=== PATIENT | male | born 1950 | race Caucasian/White ===

== ENCOUNTER 2022-07-07 14:28 | Inpatient (IN) | payer OTHER, SELFPAY ==
--- NOTE | 2022-07-07 | ECG_ITS ---
Test Reason : pre ect Blood Pressure : / mmHG Vent. Rate : 066 BPM Atrial Rate : 066 BPM P-R Int : 144 ms QRS Dur : 086 ms QT Int : 374 ms P-R-T Axes : 050 061 042 degrees QTc Int : 392 ms Sinus rhythm with Sinus Arrhythmia Otherwise normal ECG No previous ECGs available Referred By: Jones Valles Electronically Signed By:ROSALBA GALVEZ MD
--- NOTE | 2022-07-07 15:34 | HO.PSYADMNOT ---
HPI Date of Service: 07/07/22 Chief Complaint: MDD Recurrent Severe w/Psychotic Features Sources of Information: patient interviewed and chart reviewed Additional Sources of Information: [facility] HPI Subjective Notes: Martinez Warning and Conditional Voluntary Narrative: The patient is a 72-year-old male, , with no children, retired, living with his , referred [facility] for [facility]. The patient carries a diagnosis of major depressive disorder recurrent episode and according to the patient, the present depressive episode started 4 months ago with increased depressed mood, anhedonia, lack of energy, feelings of hopelessness and worthlessness. Also he reported that he knew that his computers were hacked. As an outpatient, his antidepressants were improved increased up to the maximum doses and he complained of parkinsonian syndrome. The patient worsen it and he felt suicidal and he tried to kill himself by aspiration of CO. He was initially treated in the emergency room and after being medically cleared, he was assessed by crisis hers and transfer into [facility] the [facility]. while he was on the inpatient unit, several medications were tried with limited efficacy. According to the chart they tried Risperdal, Wellbutrin, Prozac, Effexor, Abilify, lithium, Ritalin with for improvement. He was referred to this center for ECT. On interview, the patient reports depressive symptoms but he was able to contract for safety in the facility. He adamantly denies auditory hallucinations, visual hallucinations but he remains paranoid stating that the computers were hacked. He is fully aware that he was transferred here for ECT and he is willing to have the procedure., Past Psychiatric History: The patient has prior history of depression in the past, treated mostly outpatient. Apparently, he had his 1st depressive episode on 2013 managed as an outpatient and he had a 2nd episode that started most likely in December 2021 that lead to the present [facility] the [facility]. Medical Evaluation Reviewed: Hospitalist Sylvester Pending Clearance for ECT ordered [facility] Narrative: Obesity Tremors Chronic vitamin B12 deficiency Crohn's disease Hypothyroidism Overactive bladder Benign prostatic hyperplasia Family History: Denies Social History: The patient has 3 other siblings, he was raised by parents, milestones were achieved at expected age. He attended up to high school. He did 1 semester in college. 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 Later he worked in the [employer] services. He is for the last 48 years, no children. Good social support Substance History: Denies Trauma History: Denies Meds/Allergies Allergies Allergies Allergy/AdvReac Type Severity Reaction Status Date / Time codeine Allergy Intermediate Rash Verified 07/07/22 14:40 Mental Status Exam Mental Status Exam Patient Appearance: Well Grooomed and Appropriate Patient Orientation: Person, Place and Situation Level of Consciousness: Awake and Appropriate Patient Behavior: Cooperative and Passive Mood Description: Withdrawn and Depressed Affect Description: Constricted Ability to Follow Directions: Good Speech Pattern: Clear Hallucinations: None Delusions: Paranoid Ideation Thought Process: Distracted and Slowed Thinking Thought Content: positive for [place] and positive for Circumstantial Depressive Symptoms: Increased Anxiety, Insomnia, Feelings of Worthlessness, Feelings of Guilt and Difficulty Concentrating Judgement: Fair Assessment & Plan Assessment & Plan (1) Major depressive disorder, recurrent episode with mood-congruent psychotic features: Status: Acute Code(s): F33.3 - Major depressive disorder, recurrent, severe with psychotic symptoms (2) Hypothyroidism: Status: Acute Code(s): E03.9 - Hypothyroidism, unspecified (3) Vitamin B12 deficiency: Status: Acute Code(s): E53.8 - Deficiency of other specified B group vitamins (4) Parkinsonian features: Status: Acute Code(s): R25.9 - Unspecified abnormal involuntary movements (5) Crohn's disease: Status: Acute Code(s): K50.90 - Crohn's disease, unspecified, without complications Plan The patient is an elderly male with a history of depression who recently relapse with psychotic features. [facility] after suicidal attempt by trying to poisoning with c/o. He has failed to several trials of medications and he is transferring to this facility for ECT. Plan 1. Gather collateral information. We will try to contact his Elena to get more information. 2. Continue with the same medications as per medication reconciliation. 3. Blood work and EKG for medical clearance for ECT. 4. Consult to hospitalist for continuation of care. 5. Consult to anesthesiology for ECT Patient educated on: diagnosis, ECT and therapeutic strategies Informed Consent: further education needed Reason for continued inpatient stay Substantial Risk for: harm to self, inability to function, rapid decompensation and med/psych decompensation Statement Statement: I have reviewed the history and physical and performed a pertinent examination on my patient. No changes have occurred unless specified.
[2022-07-07 15:53] LABS: Lithium 0.86 mmol/L (0.60-1.20)
--- NOTE | 2022-07-07 16:35 | PC.NURSE ---
Zi is admitted to from [address] on 07/07/22 at 1450 for treatment of major depression with psychotic features. Zi has a history of multiple unsuccessful trials of medications and a recent suicide attempt by carbon monoxide poisoning. Zi reports he felt overwhelmed by his deteriorating physical health, need for increasing assistance due to complex medical issues and his beliefs that his finances were being hacked through his computer. He did not write a suicide note and after 30 minutes, stopped the attempt and accessed medical care. While he was treated [facility]rically at the [facility] he agreed to ECT and was therefore transferred to [facility]. On admission to Zi is well groomed, well dressed, alert and fully oriented. He was unsteady on his feet getting from stretcher to bed. [facility] said he walks with cane, pt reports using a walker at home. He was given a walker to use until a PT consult can be completed. Mood is depressed. Affect is sad and anxious. Zi denies hallucinations of any kind at present or in the past. He does verbalize a reportedly delusional belief that his banking was hacked through his computer. Otherwise he does not appear psychotic. Thought Process is linear and organized. He reports he misunderstood Dr Valles's questions and did not mean to give false answers. Zi denies current ideation, plan or intent to harm self or others. Appetite is good, Patient uses weighted cup and flatware. Sleep is good but often interrupted by anxiety and nocturia. His ability to focus is good. Patient denies current or history of substance use. He has never smoked. Medical Issues?include Parkinsonism, Crohn's with bowel ressection and daily diarrhea, anemia, osteoarthritis, DJD, chronic uncontrolled pain, hypothyroidism, BPH, OAB. He is intermittently unsteady and needs assist with showers, housekeeping, and dressing. He denies current physical complaint. Patient is placed on q 15 minute checks for safety. Patient has already received flu shot this year.
--- NOTE | 2022-07-07 17:42 | P.CONHOSP_ITS ---
History of Present Illness Data of Consult Service Date: 07/07/22 Requesting physician: Tee Urbina Primary Care Provider: DO CHRISTIANA Marc Reason for consult: medical H&P/ECT eval 72-year-old male with history of Crohn's disease s/p partial small bowel were stuck carr, osteoarthritis of multiple joints, hyperlipidemia, hypothyroidism, vitamin-B12 deficiency, prediabetes, and parkinsonian like tremor on Sinemet admitted to Psychiatry after being transferred from the [facility] following suicide attempt with carbon monoxide poisoning, for ECT, with consult placed to Medicine for H&P and ECT evaluation. The patient reports feeling depressed. States that he has ongoing diarrhea related to his Crohn's disease but feels this is his baseline it is reasonably controlled with Imodium. He has no personal family history of heart disease. No known coronary artery disease or heart failure. He denies any shortness of breath including dyspnea on exertion, orthopnea, PND. No palpitations, lightheadedness, chest pain, edema. He is able to ascend a flight of stairs without experiencing dyspnea. No history of seizures. Review of Systems Review of Systems: General: No fevers, malaise, unintentional weight loss HEENT: No blurred vision, diplopia. No sore throat, nasal congestion, r hinorrhea, sinus pain, ear pain Cardiovascular: No chest pain, palpitations, or leg edema Respiratory: No shortness of breath, wheezing, cough GI: No abdominal pain, nausea, vomiting, diarrhea, constipation, melena, hematochezia : No dysuria, hematuria, increased urinary frequency, decreased urinary output MSK: No myalgia, back pain Neuro: No headaches, weakness, paresthesias Psych: +depression Skin: No rashes or lesions [facility] Medical History (Updated 07/07/22 @ 17:49 by TRUE Lebron) Crohn's disease Hypothyroidism Major depressive disorder, recurrent episode with mood-congruent psychotic features Osteoarthritis Parkinsonian features Vitamin B12 deficiency Family History (Updated 07/07/22 @ 17:48 by TRUE Lebron) Father Stomach cancer Mother Dementia Surgical History (Updated 07/07/22 @ 17:48 by TRUE Lebron) S/P small bowel resection Social History Household Members: Spouse Housing: House Do you presently have visiting nurse or other home services: No Patient Tobacco Use Status: Never used Tobacco Use of substances other than those prescribed or required for medical reasons: No Currently Displaying Signs/Symptoms of Drug Intoxication Withdrawal: No Any prior treatment program specific to substance use: No Have you been hit, kicked, punched, or otherwise hurt by someone within the past year? If so, by whom?: No Do you feel safe in your current relationship?: No Is there a partner from a previous relationship who is making you feel unsafe now?: No Are you made to feel afraid or neglected: No Orthodoxy Healthcare Practices: Christianity Advance Directives: No Do you have thoughts of harming others: None Do you have a plan to hurt others: No Plan Recently lost weight without trying: No Poor oral hygiene: No Meds Allergies Allergy/AdvReac Type Severity Reaction Status Date / Time codeine Allergy Intermediate Rash Verified 07/07/22 14:40 Active Medications: Current Medications Acetaminophen (Acetaminophen 325 Mg Tablet) 650 mg PO Q6H PRN PRN Reason: Headache/Pain Mild Scale (1-3) Al Hydroxide/Mg Hydroxide (Magnesium Hydrox/Alum Hydrox 30 Ml Oral.Susp) 30 ml PO Q6H PRN PRN Reason: Heartburn/Nausea Aripiprazole (Aripiprazole 30 Mg Tablet) 30 mg PO DAILY COUNTS INCLUDE 234 BEDS AT THE [facility] Azathioprine (Azathioprine 50 Mg Tablet) 100 mg PO DAILY [facility] Carbidopa/Levodopa (Carbidopa/Levodopa 25/100 Tablet) 1 tab PO TID KATHRYN Folic Acid (Folic Acid 1 Mg Tablet) 1 mg PO DAILY COUNTS INCLUDE 234 BEDS AT THE [facility] [place] Carbonate ([place] Carbonate 300 Mg Capsule) 450 mg PO BEDTIME KAT[facility]YN Loperamide HCl (Loperamide Hcl 2 Mg Capsule) 2 mg PO Q6H PRN PRN Reason: Diarrhea Lorazepam (Lorazepam 0.5 Mg Tablet) 0.5 mg PO Q8H PRN PRN Reason: Anxiety Magnesium Hydroxide (Milk Of Magnesia 30 Ml Oral.Susp) 30 ml PO DAILY PRN PRN Reason: Constipation Naproxen (Naproxen 500 Mg Tablet) 500 mg PO BID COUNTS INCLUDE 234 BEDS AT THE [facility] Oxybutynin Chloride (Oxybutynin Chloride Er 5 Mg Tab.Er.24) 10 mg PO DAILY COUNTS INCLUDE 234 BEDS AT THE [facility] Primidone (Primidone 50 Mg Tablet) 125 mg PO DAILY COUNTS INCLUDE 234 BEDS AT THE [facility] Primidone (Primidone 50 Mg Tablet) 100 mg PO BEDTIME KAT[facility] Trazodone HCl (Trazodone Hcl 50 Mg Tablet) 50 mg PO BEDTIME PRN PRN Reason: Insomnia Venlafaxine HCl (Venlafaxine Hcl Er 37.5 Mg Cap.Er.24h) 187.5 mg PO DAILY KATHRYN Results Labs Labs: Laboratory Results - last 24 hr 07/07/22 15:02 [place] 0.86 Assessment and Plan (1) Routine medical exam: Status: Acute Plan 72-year-old male with history of Crohn's disease s/p partial small bowel were stuck carr, osteoarthritis of multiple joints, hyperlipidemia, hypothyroidism, vitamin-B12 deficiency, prediabetes, and parkinsonian like tremor on Sinemet admitted to Psychiatry after being transferred from the following suicide attempt with carbon monoxide poisoning, for ECT, with consult placed to Medicine for H&P and ECT evaluation. #Depression/Suicide attempt with CO poisoning -Plan per psychiatry -ECT evaluation: There is no medical contraindication inhibiting patient undergoing ECT. Cardiac Pre-Op risk 0. #Hypothyroidism -Check TSH with reflex free T4 -Not on levothyroxine at home, ?subclinical hypothyroidism -Initiate levothyroxine if free T4 levels deficient #Vitamin B12 deficiency -Vitamin b12/folate levels pending -Replete as indicated #Parkinsonism- tremor -Continue sinemet #Osteoarthritis -No NSAIDs with Crohns disease- naproxen dc'd -Tylenol 650mg q6h prn #HLD -lipid panel pending -Consider statin if LDL >130 #crohns disease- stable without exacerbation -Continue azathioprine -Immodium prn for diarrhea #Prediabetes -A1c ordered Thank you for allowing me to participate in this consult. Signing off at this time. Please do not hesitate to call for further questions.
[2022-07-07 18:00] VITALS: BP 126/60; PULSE 73; RESP 16; TEMP 35.8; O2SAT 95
[2022-07-07] MEDS: Primidone 50 MG TABLET 100 MG PO (20:54)
[2022-07-07] MEDS: Lithium Carbonate 300 MG TABLET 450 MG PO (20:55)
[2022-07-07] MEDS: Carbidopa/Levodopa 25/100 TABLET 1 TAB PO (20:55)
[2022-07-07] MEDS: Loperamide HCl 2 MG CAPSULE PO (22:31)
[2022-07-08 06:00] VITALS: BP 119/71; PULSE 77; RESP 16; TEMP 36.2; O2SAT 97
[2022-07-08 08:06] LABS: MANUAL DIFF FLAG NO
[2022-07-08 08:09] LABS: Basophils Percent Auto 0.7 % (0-2); Eosinophils Absolute Auto 0.2 X10*3/uL (0.0-0.4); Hematocrit 40.8 % (42.0-52.0); Hemoglobin 13.8 g/dl (14.0-18.0); Imm Gran Abs Auto 0.02 X10*3/uL (0.00-0.03); Imm Gran Pct Auto 0.4 % (0.0-0.4); Lymphocytes Absolute Auto 1.2 X10*3/uL (1.2-4.9); Lymphocytes Percent Auto 22.9 % (20-40); Mean Corpuscular HGB Conc 33.8 g/dl (31.0-36.0); Mean Corpuscular Hemoglobin 33.6 pg (27.0-33.0); Mean Corpuscular Volume 99.3 fL (80.0-98.0); Mean Platelet Volume 9.5 fL (9.4-12.4); Monocytes Absolute Auto 0.4 X10*3/uL (0.1-1.2); Neutrophils Absolute Auto 3.5 x10*3/uL (2.0-8.3); Platelet Count 236 X10*3/uL (160-400); Red Blood Count 4.11 X10*6/uL (4.60-5.80); Red Cell Distribution Width 12.4 % (11.0-16.0); White Blood Count 5.4 X10*3/uL (4.8-10.8)
[2022-07-08 08:49] LABS: Estimated Average Glucose 108 mg/dL; Hemoglobin A1c % 5.4 %
[2022-07-08 08:54] LABS: Alanine Aminotransferase 13 U/L (0-40); Albumin Level 4.1 g/dL (3.5-5.0); Alkaline Phosphatase 81 U/L (39-117); Anion Gap 11 (12-20); Aspartate Amino Transferase 14 U/L (5-37); Bilirubin Total 0.4 mg/dL (0.0-1.0); Blood Urea Nitrogen 12 mg/dL (9-16); Calcium 9.1 mg/dL (8.4-10.2); Carbon Dioxide 26 mmol/L (22-29); Chloride 105 mmol/L (96-108); Cholesterol 168 mg/dL; Estimated Glomerular Filt Rate > 60; Glucose Fasting 107 mg/dL (60-99); HDL Cholesterol 34 mg/dL; LDL Cholesterol Calculated 98 mg/dl; Potassium 4.6 mmol/L (3.3-5.1); Sodium 137 mmol/L (135-145); TSH reflex Free T4 4.21 uIU/mL (0.32-4.0); Total Protein 6.5 g/dL (6.5-8.0); Triglycerides 181 mg/dL
[2022-07-08] MEDS: Folic Acid 1 MG TABLET PO (09:52)
[2022-07-08] MEDS: Primidone 50 MG TABLET 125 MG PO (09:52)
[2022-07-08] MEDS: Carbidopa/Levodopa 25/100 TABLET 1 TAB PO ×3 (09:52→20:19)
[2022-07-08] MEDS: azaTHIOprine 50 MG TABLET 100 MG PO (09:52)
[2022-07-08 09:54] VITALS: BP 126/60; PULSE 73; O2SAT 95
[2022-07-08 10:03] LABS: Free T4 (Free Thyroxine) 0.96 ng/dL (0.71-1.85)
[2022-07-08 10:20] LABS: Folate 18.9 ng/mL (> or = 4.0); Vitamin B12 746 pg/mL (200-900)
--- NOTE | 2022-07-08 11:12 | P.PNPSI_ITS ---
Subjective Subjective Date of Service: 07/08/22 Reason For Visit: MDD Recurrent Severe w/Psychotic Features Subjective Notes: Conditional Voluntary Interim History: The nursing staff reported the patient has been alert, oriented x3 and he walks with a cane. He denies auditory hallucinations but he looks delusional. The hospital consult was done and he is cleared for ECT. Also his lithium levels in the therapeutic range. We will consult today for a physical therapy consultation for his ambulation. On interview the patient remains dysphoric but adamantly denies auditory hallucinations, still he is delusional. We discussed at length ECT and he is willing to have it on Monday. He complained of poor sleep, his rommate snored. Mental Status Exam Mental Status Exam Patient Appearance: Appropriate Patient Orientation: Person, Place and Situation Level of Consciousness: Awake and Appropriate Patient Behavior: Cooperative Mood Description: Withdrawn Affect Description: Constricted Ability to Follow Directions: Good Speech Pattern: Clear Hallucinations: None Delusions: Paranoid Ideation Thought Process: Distracted and Slowed Thinking Thought Content: positive for [place] and positive for Poverty of Content Judgement: Fair Diagnostics Vital Signs (24Hr): Vital Signs - 24 hr 07/07/22 18:00 07/08/22 06:00 07/08/22 09:54 Temperature 96.4 F L 97.1 F Pulse Rate 73 77 73 Respiratory Rate 16 16 Blood Pressure 126/60 119/71 126/60 Pulse Oximetry 95 97 95 Oxygen Delivery Method Room Air Room Air Labs Results: 07/08/22 08:02 07/08/22 08:02 Labs: Laboratory Results - last 48 hr 07/07/22 07/08/22 07/08/22 15:02 08:02 08:02 WBC 5.4 RBC 4.11 L Hgb 13.8 L Hct 40.8 L MCV 99.3 H MCH 33.6 H MCHC 33.8 RDW 12.4 Plt Count 236 MPV 9.5 Immature Gran % (Auto) 0.4 Neut % (Auto) 65.0 Lymph % (Auto) 22.9 [place] % (Auto) 8.0 Eos % (Auto) 3.0 Baso % (Auto) 0.7 Lymph # (Auto) 1.2 [place] # (Auto) 0.4 Eos # (Auto) 0.2 Baso # (Auto) 0.0 Abs Immat Gran (auto) 0.02 Absolute Neuts (auto) 3.5 Absolute Nucleated RBC 0.000 Nucleated RBC % (auto) 0.0 Sodium 137 Potassium 4.6 Chloride 105 Carbon Dioxide 26 Anion Gap 11 L BUN 12 Creatinine 0.88 Estim Creat Clear Calc TNP Estimated GFR > 60 Fasting Glucose 107 H Estimat Average Glucose Hemoglobin A1c % Calcium 9.1 Total Bilirubin 0.4 AST 14 ALT 13 Alkaline Phosphatase 81 Total Protein 6.5 Albumin 4.1 Triglycerides 181 Cholesterol 168 LDL Cholesterol, Calc 98 HDL Cholesterol 34 Vitamin B12 Folate TSH 4.21 H Free T4 0.96 [place] 0.86 07/08/22 07/08/22 08:02 08:02 WBC RBC Hgb Hct MCV MCH MCHC RDW Plt Count MPV Immature Gran % (Auto) Neut % (Auto) Lymph % (Auto) [place] % (Auto) Eos % (Auto) Baso % (Auto) Lymph # (Auto) [place] # (Auto) Eos # (Auto) Baso # (Auto) Abs Immat Gran (auto) Absolute Neuts (auto) Absolute Nucleated RBC Nucleated RBC % (auto) Sodium Potassium Chloride Carbon Dioxide Anion Gap BUN Creatinine Estim Creat Clear Calc Estimated GFR Fasting Glucose Estimat Average Glucose 108 Hemoglobin A1c % 5.4 Calcium Total Bilirubin AST ALT Alkaline Phosphatase Total Protein Albumin Triglycerides Cholesterol LDL Cholesterol, Calc HDL Cholesterol Vitamin B12 746 Folate 18.9 TSH Free T4 [place] Medications Medications Current Medications Acetaminophen (Acetaminophen 325 Mg Tablet) 650 mg PO Q6H PRN PRN Reason: Headache/Pain Mild Scale (1-3) Acetaminophen (Acetaminophen 325 Mg Tablet) 650 mg PO Q6H PRN PRN Reason: arthritis pain Al Hydroxide/Mg Hydroxide (Magnesium Hydrox/Alum Hydrox 30 Ml Oral.Susp) 30 ml PO Q6H PRN PRN Reason: Heartburn/Nausea Aripiprazole (Aripiprazole 30 Mg Tablet) 30 mg PO DAILY KATHRYN Azathioprine (Azathioprine 50 Mg Tablet) 100 mg PO DAILY [facility] Last Admin: 07/08/22 09:52 Dose: 100 mg Carbidopa/Levodopa (Carbidopa/Levodopa 25/100 Tablet) 1 tab PO TID KATHRYN Last Admin: 07/08/22 09:52 Dose: 1 tab Folic Acid (Folic Acid 1 Mg Tablet) 1 mg PO DAILY [facility] Last Admin: 07/08/22 09:52 Dose: 1 mg [place] Carbonate ([place] Carbonate 300 Mg Tablet) 450 mg PO BEDTIME KATHRYN Last Admin: 07/07/22 20:55 Dose: 450 mg Loperamide HCl (Loperamide Hcl 2 Mg Capsule) 2 mg PO Q6H PRN PRN Reason: Diarrhea Last Admin: 07/07/22 22:31 Dose: 2 mg Lorazepam (Lorazepam 0.5 Mg Tablet) 0.5 mg PO Q8H PRN PRN Reason: Anxiety Magnesium Hydroxide (Milk Of Magnesia 30 Ml Oral.Susp) 30 ml PO DAILY PRN PRN Reason: Constipation Oxybutynin Chloride (Oxybutynin Chloride Er 5 Mg Tab.Er.24) 10 mg PO DAILY [facility] Last Admin: 07/08/22 09:51 Dose: 10 mg Primidone (Primidone 50 Mg Tablet) 125 mg PO DAILY [facility] Last Admin: 07/08/22 09:52 Dose: 125 mg Primidone (Primidone 50 Mg Tablet) 100 mg PO BEDTIME [facility] Last Admin: 07/07/22 20:54 Dose: 100 mg Trazodone HCl (Trazodone Hcl 50 Mg Tablet) 50 mg PO BEDTIME PRN PRN Reason: Insomnia Venlafaxine HCl (Venlafaxine Hcl Er 37.5 Mg Cap.Er.24h) 187.5 mg PO DAILY [facility] Allergies Allergies Allergy/AdvReac Type Severity Reaction Status Date / Time codeine Allergy Intermediate Rash Verified 07/07/22 14:40 Assessment & Plan Assessment & Plan (1) Routine medical exam: Status: Acute Code(s): Z00.00 - Encounter for general adult medical examination without abnormal findings Plan 72-year-old male with history of Crohn's disease s/p partial small bowel were stuck carr, osteoarthritis of multiple joints, hyperlipidemia, hypothyroidism, vitamin-B12 deficiency, prediabetes, and parkinsonian like tremor on Sinemet admitted to Psychiatry after being transferred from the [facility] following suicide attempt with carbon monoxide poisoning, for ECT, with consult placed to Medicine for H&P and ECT evaluation. #Depression/Suicide attempt with CO poisoning -Plan per psychiatry -ECT evaluation: There is no medical contraindication inhibiting patient undergoing ECT. Cardiac Pre-Op risk 0. #Hypothyroidism -Check TSH with reflex free T4 -Not on levothyroxine at home, ?subclinical hypothyroidism -Initiate levothyroxine if free T4 levels deficient #Vitamin B12 deficiency -Vitamin b12/folate levels pending -Replete as indicated #Parkinsonism- tremor -Continue sinemet #Osteoarthritis -No NSAIDs with Crohns disease- naproxen dc'd -Tylenol 650mg q6h prn #HLD -lipid panel pending -Consider statin if LDL >130 #crohns disease- stable without exacerbation -Continue azathioprine -Immodium prn for diarrhea #Prediabetes -A1c ordered Thank you for allowing me to participate in this consult. Signing off at this time. Please do not hesitate to call for further questions. Psychiatry Plan 1. ECT for Monday. 2. Continue with Effexor and other medications. 3. PT consult for the ambulation . 4. Increase Trazodone at hs. I spent ___20___ minutes with the patient and/or on the patient floor today, greater than?50% of which was spent counseling/coordinating care. Reason for contiued inpatient stay Substantial Risk for: inability to function, rapid decompensation and med/psych decompensation
[2022-07-08] MEDS: Venlafaxine HCl ER 37.5 MG CAP.ER.24H 187.5 MG PO (11:29)
[2022-07-08] MEDS: Loperamide HCl 2 MG CAPSULE PO (11:29)
[2022-07-08] MEDS: ARIPiprazole 30 MG TABLET PO (11:30)
[2022-07-08 18:00] VITALS: BP 111/54; PULSE 74; RESP 14; TEMP 36.4; O2SAT 96
[2022-07-08] MEDS: Lithium Carbonate 300 MG TABLET 450 MG PO (20:18)
[2022-07-08] MEDS: traZODone HCL 100 MG TABLET PO (20:19)
[2022-07-08] MEDS: Primidone 50 MG TABLET 100 MG PO (20:19)
[2022-07-08] MEDS: LORazepam 0.5 MG TABLET PO ×2 (20:22→22:46)
[2022-07-08] MEDS: QUEtiapine Fumarate 25 MG TABLET 12.5 MG PO (22:46)
[2022-07-09 06:00] VITALS: BP 127/69; PULSE 67; RESP 19; TEMP 35.9; O2SAT 97
[2022-07-09] MEDS: azaTHIOprine 50 MG TABLET 100 MG PO (08:55)
[2022-07-09] MEDS: Venlafaxine HCl ER 37.5 MG CAP.ER.24H 187.5 MG PO (08:55)
[2022-07-09] MEDS: Primidone 50 MG TABLET 125 MG PO (08:56)
[2022-07-09] MEDS: ARIPiprazole 30 MG TABLET PO (08:56)
[2022-07-09] MEDS: Carbidopa/Levodopa 25/100 TABLET 1 TAB PO ×2 (08:56→20:05)
[2022-07-09] MEDS: Folic Acid 1 MG TABLET PO (08:56)
--- NOTE | 2022-07-09 09:59 | HO.PSYCHPN ---
Subjective Subjective Date of Service: 07/09/22 Reason For Visit: MDD Recurrent Severe w/Psychotic Features Subjective Notes: Conditional Voluntary Interim History: The patient transferred from the [place] system for ECT. Patient flat depressed hopeless helpless somewhat rigid tremulous internally preoccupied he is able to take and information. Records reviewed from the [place] Mental Status Exam Mental Status Exam Patient Appearance: Fatigued, Disheveled and Rigid Patient Orientation: Person, Place and Situation Level of Consciousness: Awake and Appropriate Patient Behavior: Cooperative Mood Description: Withdrawn Affect Description: Constricted Ability to Follow Directions: Good Speech Pattern: Clear Hallucinations: None Delusions: Paranoid Ideation Thought Process: Distracted and Slowed Thinking Thought Content: positive for [place] and positive for Poverty of Content Depressive Symptoms: Increased Anxiety and Loss of Int. in Activity Judgement: Fair Diagnostics Vital Signs (24Hr): Vital Signs - 24 hr 07/08/22 18:00 07/09/22 06:00 Temperature 97.5 F 96.6 F L Pulse Rate 74 67 Respiratory Rate 14 19 Blood Pressure 111/54 L 127/69 Pulse Oximetry 96 97 Oxygen Delivery Method Room Air Room Air Labs Results: 07/08/22 08:02 07/08/22 08:02 Labs: Laboratory Results - last 48 hr 07/07/22 07/08/22 07/08/22 15:02 08:02 08:02 WBC 5.4 RBC 4.11 L Hgb 13.8 L Hct 40.8 L MCV 99.3 H MCH 33.6 H MCHC 33.8 RDW 12.4 Plt Count 236 MPV 9.5 Immature Gran % (Auto) 0.4 Neut % (Auto) 65.0 Lymph % (Auto) 22.9 [place] % (Auto) 8.0 Eos % (Auto) 3.0 Baso % (Auto) 0.7 Lymph # (Auto) 1.2 [place] # (Auto) 0.4 Eos # (Auto) 0.2 Baso # (Auto) 0.0 Abs Immat Gran (auto) 0.02 Absolute Neuts (auto) 3.5 Absolute Nucleated RBC 0.000 Nucleated RBC % (auto) 0.0 Sodium 137 Potassium 4.6 Chloride 105 Carbon Dioxide 26 Anion Gap 11 L BUN 12 Creatinine 0.88 Estim Creat Clear Calc TNP Estimated GFR > 60 Fasting Glucose 107 H Estimat Average Glucose Hemoglobin A1c % Calcium 9.1 Total Bilirubin 0.4 AST 14 ALT 13 Alkaline Phosphatase 81 Total Protein 6.5 Albumin 4.1 Triglycerides 181 Cholesterol 168 LDL Cholesterol, Calc 98 HDL Cholesterol 34 Vitamin B12 Folate TSH 4.21 H Free T4 0.96 [place] 0.86 07/08/22 07/08/22 08:02 08:02 WBC RBC Hgb Hct MCV MCH MCHC RDW Plt Count MPV Immature Gran % (Auto) Neut % (Auto) Lymph % (Auto) [place] % (Auto) Eos % (Auto) Baso % (Auto) Lymph # (Auto) [place] # (Auto) Eos # (Auto) Baso # (Auto) Abs Immat Gran (auto) Absolute Neuts (auto) Absolute Nucleated RBC Nucleated RBC % (auto) Sodium Potassium Chloride Carbon Dioxide Anion Gap BUN Creatinine Estim Creat Clear Calc Estimated GFR Fasting Glucose Estimat Average Glucose 108 Hemoglobin A1c % 5.4 Calcium Total Bilirubin AST ALT Alkaline Phosphatase Total Protein Albumin Triglycerides Cholesterol LDL Cholesterol, Calc HDL Cholesterol Vitamin B12 746 Folate 18.9 TSH Free T4 [place] Medications Medications Current Medications Acetaminophen (Acetaminophen 325 Mg Tablet) 650 mg PO Q6H PRN PRN Reason: Headache/Pain Mild Scale (1-3) Acetaminophen (Acetaminophen 325 Mg Tablet) 650 mg PO Q6H PRN PRN Reason: arthritis pain Al Hydroxide/Mg Hydroxide (Magnesium Hydrox/Alum Hydrox 30 Ml Oral.Susp) 30 ml PO Q6H PRN PRN Reason: Heartburn/Nausea Aripiprazole (Aripiprazole 30 Mg Tablet) 30 mg PO DAILY [facility] Last Admin: 07/09/22 08:56 Dose: 30 mg Azathioprine (Azathioprine 50 Mg Tablet) 100 mg PO DAILY [facility] Last Admin: 07/09/22 08:55 Dose: 100 mg Carbidopa/Levodopa (Carbidopa/Levodopa 25/100 Tablet) 1 tab PO TID [facility] Last Admin: 07/09/22 08:56 Dose: 1 tab Folic Acid (Folic Acid 1 Mg Tablet) 1 mg PO DAILY [facility] Last Admin: 07/09/22 08:56 Dose: 1 mg [place] Carbonate ([place] Carbonate 300 Mg Tablet) 450 mg PO BEDTIME [facility] Last Admin: 07/08/22 20:18 Dose: 450 mg Loperamide HCl (Loperamide Hcl 2 Mg Capsule) 2 mg PO Q6H PRN PRN Reason: Diarrhea Last Admin: 07/08/22 11:29 Dose: 2 mg Lorazepam (Lorazepam 0.5 Mg Tablet) 0.5 mg PO Q8H PRN PRN Reason: Anxiety Last Admin: 07/08/22 20:22 Dose: 0.5 mg Lorazepam (Lorazepam 0.5 Mg Tablet) 0.5 mg PO BEDTIME PRN PRN Reason: Insomnia Lorazepam (Lorazepam 0.5 Mg Tablet) 0.5 mg PO BEDTIME [facility] Last Admin: 07/08/22 22:46 Dose: 0.5 mg Magnesium Hydroxide (Milk Of Magnesia 30 Ml Oral.Susp) 30 ml PO DAILY PRN PRN Reason: Constipation Oxybutynin Chloride (Oxybutynin Chloride Er 5 Mg Tab.Er.24) 10 mg PO DAILY [facility] Last Admin: 07/09/22 08:54 Dose: 10 mg Primidone (Primidone 50 Mg Tablet) 125 mg PO DAILY [facility] Last Admin: 07/09/22 08:56 Dose: 125 mg Primidone (Primidone 50 Mg Tablet) 100 mg PO BEDTIME [facility] Last Admin: 07/08/22 20:19 Dose: 100 mg Quetiapine Fumarate (Quetiapine Fumarate 25 Mg Tablet) 12.5 mg PO BEDTIME PRN PRN Reason: Insomnia Last Admin: 07/08/22 22:46 Dose: 12.5 mg Trazodone HCl (Trazodone Hcl 50 Mg Tablet) 50 mg PO BEDTIME PRN PRN Reason: Insomnia Trazodone HCl (Trazodone Hcl 100 Mg Tablet) 100 mg PO BEDTIME [facility] Last Admin: 07/08/22 20:19 Dose: 100 mg Venlafaxine HCl (Venlafaxine Hcl Er 37.5 Mg Cap.Er.24h) 187.5 mg PO DAILY [facility] Last Admin: 07/09/22 08:55 Dose: 187.5 mg Allergies Allergies Allergy/AdvReac Type Severity Reaction Status Date / Time codeine Allergy Intermediate Rash Verified 07/07/22 14:40 Assessment & Plan Assessment & Plan (1) Routine medical exam: Status: Acute Code(s): Z00.00 - Encounter for general adult medical examination without abnormal findings Plan 72-year-old male with history of Crohn's disease s/p partial small bowel were stuck carr, osteoarthritis of multiple joints, hyperlipidemia, hypothyroidism, vitamin-B12 deficiency, prediabetes, and 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 #Depression/Suicide attempt with CO poisoning -Plan per psychiatry -ECT evaluation: There is no medical contraindication inhibiting patient undergoing ECT. Cardiac Pre-Op risk 0. #Hypothyroidism -Check TSH with reflex free T4 -Not on levothyroxine at home, ?subclinical hypothyroidism -Initiate levothyroxine if free T4 levels deficient #Vitamin B12 deficiency -Vitamin b12/folate levels pending -Replete as indicated #Parkinsonism- tremor -Continue sinemet #Osteoarthritis -No NSAIDs with Crohns disease- naproxen dc'd -Tylenol 650mg q6h prn #HLD -lipid panel pending -Consider statin if LDL >130 #crohns disease- stable without exacerbation -Continue azathioprine -Immodium prn for diarrhea #Prediabetes -A1c ordered Thank you for allowing me to participate in this consult. Signing off at this time. Please do not hesitate to call for further questions. Psychiatry Plan 1. ECT for Monday. 2. Continue with Effexor and other medications. 3. PT consult for the ambulation . 4. Increase Trazodone at hs. 07/09/2022 Patient depressed flat discussed ECT questions answered consider decrease Abilify I spent minutes with the patient and/or on the patient floor today, greater than?50% of which was spent counseling/coordinating care. Reason for contiued inpatient stay Substantial Risk for: harm to self, rapid decompensation and med/psych decompensation
[2022-07-09] MEDS: Loperamide HCl 2 MG CAPSULE PO (11:26)
[2022-07-09 18:00] VITALS: BP 123/73; PULSE 80; RESP 14; TEMP 36.4; O2SAT 97
[2022-07-09] MEDS: Lithium Carbonate 300 MG TABLET 450 MG PO (20:02)
[2022-07-09] MEDS: LORazepam 0.5 MG TABLET PO (20:04)
[2022-07-09] MEDS: Primidone 50 MG TABLET 100 MG PO (20:04)
[2022-07-09] MEDS: QUEtiapine Fumarate 25 MG TABLET 12.5 MG PO (20:05)
[2022-07-09] MEDS: traZODone HCL 100 MG TABLET PO (20:06)
[2022-07-10 06:00] VITALS: BP 121/58; PULSE 83; RESP 18; TEMP 36.1; O2SAT 96
[2022-07-10] MEDS: Venlafaxine HCl ER 37.5 MG CAP.ER.24H 187.5 MG PO (08:44)
[2022-07-10] MEDS: Carbidopa/Levodopa 25/100 TABLET 1 TAB PO ×3 (08:45→22:01)
[2022-07-10] MEDS: azaTHIOprine 50 MG TABLET 100 MG PO (08:45)
[2022-07-10] MEDS: Folic Acid 1 MG TABLET PO (08:46)
[2022-07-10] MEDS: Primidone 50 MG TABLET 125 MG PO (08:46)
[2022-07-10] MEDS: ARIPiprazole 30 MG TABLET PO (08:46)
[2022-07-10] MEDS: Loperamide HCl 2 MG CAPSULE PO (08:51)
--- NOTE | 2022-07-10 10:29 | P.PNPSI_ITS ---
Subjective Subjective Date of Service: 07/10/22 Reason For Visit: MDD Recurrent Severe w/Psychotic Features Diagnostics Vital Signs (24Hr): Vital Signs - 24 hr 07/09/22 18:00 07/10/22 06:00 Temperature 97.6 F 96.9 F Pulse Rate 80 83 Respiratory Rate 14 18 Blood Pressure 123/73 121/58 L Pulse Oximetry 97 96 Oxygen Delivery Method Room Air Room Air Labs Results: 07/08/22 08:02 07/08/22 08:02 Medications Medications Current Medications Acetaminophen (Acetaminophen 325 Mg Tablet) 650 mg PO Q6H PRN PRN Reason: Headache/Pain Mild Scale (1-3) Acetaminophen (Acetaminophen 325 Mg Tablet) 650 mg PO Q6H PRN PRN Reason: arthritis pain Al Hydroxide/Mg Hydroxide (Magnesium Hydrox/Alum Hydrox 30 Ml Oral.Susp) 30 ml PO Q6H PRN PRN Reason: Heartburn/Nausea Aripiprazole (Aripiprazole 20 Mg Tablet) 20 mg PO DAILY [facility] Azathioprine (Azathioprine 50 Mg Tablet) 100 mg PO DAILY [facility] Last Admin: 07/10/22 08:45 Dose: 100 mg Carbidopa/Levodopa (Carbidopa/Levodopa 25/100 Tablet) 1 tab PO TID [facility] Last Admin: 07/10/22 08:45 Dose: 1 tab Folic Acid (Folic Acid 1 Mg Tablet) 1 mg PO DAILY [facility] Last Admin: 07/10/22 08:46 Dose: 1 mg Rule Carbonate (Rule Carbonate 300 Mg Tablet) 450 mg PO BEDTIME [facility] Last Admin: 07/09/22 20:02 Dose: 450 mg Loperamide HCl (Loperamide Hcl 2 Mg Capsule) 2 mg PO Q6H PRN PRN Reason: Diarrhea Last Admin: 07/10/22 08:51 Dose: 2 mg Lorazepam (Lorazepam 0.5 Mg Tablet) 0.5 mg PO Q8H PRN PRN Reason: Anxiety Last Admin: 07/08/22 20:22 Dose: 0.5 mg Lorazepam (Lorazepam 0.5 Mg Tablet) 0.5 mg PO BEDTIME PRN PRN Reason: Insomnia Lorazepam (Lorazepam 0.5 Mg Tablet) 0.5 mg PO BEDTIME [facility] Last Admin: 07/09/22 20:04 Dose: 0.5 mg Magnesium Hydroxide (Milk Of Magnesia 30 Ml Oral.Susp) 30 ml PO DAILY PRN PRN Reason: Constipation Oxybutynin Chloride (Oxybutynin Chloride Er 5 Mg Tab.Er.24) 10 mg PO DAILY [facility] Last Admin: 07/10/22 08:45 Dose: 10 mg Primidone (Primidone 50 Mg Tablet) 125 mg PO DAILY [facility] Last Admin: 07/10/22 08:46 Dose: 125 mg Primidone (Primidone 50 Mg Tablet) 100 mg PO BEDTIME [facility] Last Admin: 07/09/22 20:04 Dose: 100 mg Quetiapine Fumarate (Quetiapine Fumarate 25 Mg Tablet) 12.5 mg PO BEDTIME PRN PRN Reason: Insomnia Last Admin: 07/09/22 20:05 Dose: 12.5 mg Trazodone HCl (Trazodone Hcl 50 Mg Tablet) 50 mg PO BEDTIME PRN PRN Reason: Insomnia Trazodone HCl (Trazodone Hcl 100 Mg Tablet) 100 mg PO BEDTIME [facility] Last Admin: 07/09/22 20:06 Dose: 100 mg Venlafaxine HCl (Venlafaxine Hcl Er 37.5 Mg Cap.Er.24h) 187.5 mg PO DAILY [facility] Last Admin: 07/10/22 08:44 Dose: 187.5 mg Allergies Allergies Allergy/AdvReac Type Severity Reaction Status Date / Time codeine Allergy Intermediate Rash Verified 07/07/22 14:40 Assessment & Plan Assessment & Plan (1) Routine medical exam: Status: Acute Code(s): Z00.00 - Encounter for general adult medical examination without abnormal findings Plan 72-year-old male with history of Crohn's disease s/p partial small bowel were stuck carr, osteoarthritis of multiple joints, hyperlipidemia, hypothyroidism, vitamin-B12 deficiency, prediabetes, and 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 #Depression/Suicide attempt with CO poisoning -Plan per psychiatry -ECT evaluation: There is no medical contraindication inhibiting patient under going ECT. Cardiac Pre-Op risk 0. #Hypothyroidism -Check TSH with reflex free T4 -Not on levothyroxine at home, ?subclinical hypothyroidism -Initiate levothyroxine if free T4 levels deficient #Vitamin B12 deficiency -Vitamin b12/folate levels pending -Replete as indicated #Parkinsonism- tremor -Continue sinemet #Osteoarthritis -No NSAIDs with Crohns disease- naproxen dc'd -Tylenol 650mg q6h prn #HLD -lipid panel pending -Consider statin if LDL >130 #crohns disease- stable without exacerbation -Continue azathioprine -Immodium prn for diarrhea #Prediabetes -A1c ordered Thank you for allowing me to participate in this consult. Signing off at this time. Please do not hesitate to call for further questions. Psychiatry Plan 1. ECT for Monday. 2. Continue with Effexor and other medications. 3. PT consult for the ambulation . 4. Increase Trazodone at hs. 07/09/2022 Patient depressed flat discussed ECT questions answered consider decrease Abilify consider clozapine Seroquel I spent minutes with the patient and/or on the patient floor today, gre ater than?50% of which was spent counseling/coordinating care. Patient educated on: diagnosis, ECT and medical condition Informed Consent: understands Reason for contiued inpatient stay Substantial Risk for: harm to self, inability to function and rapid decompensation
[2022-07-10 20:37] VITALS: BP 138/60; PULSE 69; RESP 16; TEMP 36.3; O2SAT 95
[2022-07-10] MEDS: Primidone 50 MG TABLET 100 MG PO (22:01)
[2022-07-10] MEDS: traZODone HCL 100 MG TABLET PO (22:02)
[2022-07-11] VITALS (9 sets, daily range): BP systolic 93–169; BP diastolic 49–90; PULSE 67–87; RESP 16–22; TEMP 36.1–37; O2SAT 94–99; BMI 31.6
--- NOTE | 2022-07-11 08:17 | MHC.SHP ---
Pre-Procedural Eval Section A Date of Service: 07/11/22 The patient is an INPATIENT: Yes Changes since office visit: No Cold of Flu in the past 2 weeks, No New Medical Problems, No Changes in Medication and No Patient answered all questions The History & Physical has been completed within 30 days and I have reviewed it.: Yes Section B Chief Complaint: MDD Recurrent Severe w/Psychotic Features Details of Present Illness: Transfer from [place] to do ECT. Several trials failed of antidepressants. Relevant Family History (Specify if Yes): No Relevant Social History: None Present Medications: see Short Stay Collaborative assessment Medical History: No relevant PMH History of Previous Operations: No relevant previous surgery Allergies: Allergies Allergy/AdvReac Type Severity Reaction Status Date / Time codeine Allergy Intermediate Rash Verified 07/07/22 14:40 Review of Systems Sugical H&P ROS: Negative: Constitution, Cardiovascular, Respiratory, Neurological, Psychiatric, Hem-Onc, Allergic/Immunologic, Gastrointestinal, Genitourinary, Musculoskeletal, Integumentary, Endocrine and Eyes/Ears/Nose/Throat Exam Surgical H&P Exam: Normal: HEENT, Normal: Heart, Normal: Lungs, Normal: Extremities, Normal: Abdomen, Normal: Skin and Normal: Neurological Plan Diagnosis/Plan: Unchanged I have reviewed the history and physical and performed a pertinent physical examination on my patient. No changes have occurred unless specified.
--- NOTE | 2022-07-11 08:46 | HO.ECTPROC ---
ECT Procedure Note Diagnosis/Treatment Date of Service: 07/11/22 Diagnosis: Major Depressive Disorder Current Treatment Number: 1 Treatment: Series Interval Clinical Notes: The patient reported dysphoria, no extreme anxiety with the first ECT. Time: Total time managing care of this patient today _30___ minutes. ECT Settings Device: THYMATRON DGx Electrode Placement: Right Unilateral Program/Pulse Width: 0.25 Energy Percent: 100 Seizure Duration By EEG (in seconds): 26 By Motor Observation (in seconds): 21 Medications Administration General Anesthetic: Etomidate (16) Muscle Relaxant: Succinylcholine (100) Ancillary Medications Anti-emetics: Zofran - Pre ECT Miscillaneous Medications: Propofol Airway Management Airway Management: Bag Mask Ventilation Treatment Recommendations Electrode Placement: Right Unilateral Program/Pulse Width: 0.50 Energy Percent: 100 Pt Tolerated Procedure w/o Issue: Yes
--- NOTE | 2022-07-11 08:55 | P.CONAN_ITS ---
[facility] Active Problems Active Problems: All Active Problems (Updated 07/07/22 @ 17:49 by TRUE Lebron) Routine medical exam (Acute) Major depressive disorder, recurrent episode with mood-congruent psychotic features (Acute) Hypothyroidism (Acute) Vitamin B12 deficiency (Acute) Parkinsonian features (Acute) Crohn's disease (Acute) Past Medical History Medical History Crohn's disease Hypothyroidism Major depressive disorder, recurrent episode with mood-congruent psychotic features Osteoarthritis Parkinsonian features Vitamin B12 deficiency Family History Family History (Updated 07/07/22 @ 17:48 by TRUE Lebron) Father Stomach cancer Mother Dementia Family history of problems with anesthesia: No Surgical History Surgical History S/P small bowel resection History of Problems with Anesthesia: No Social History Social History Household Members: Spouse Housing: House Do you presently have visiting nurse or other home services: No Patient Tobacco Use Status: Never used Tobacco Use of substances other than those prescribed or required for medical reasons: No Currently Displaying Signs/Symptoms of Drug Intoxication Withdrawal: No Any prior treatment program specific to substance use: No Have you been hit, kicked, punched, or otherwise hurt by someone within the past year? If so, by whom?: No Do you feel safe in your current relationship?: No Is there a partner from a previous relationship who is making you feel unsafe now?: No Are you made to feel afraid or neglected: No Evangelical Healthcare Practices: Gnosticist Advance Directives: No Do you have thoughts of harming others: None Do you have a plan to hurt others: No Plan Recently lost weight without trying: No Poor oral hygiene: No service: Yes Sexual orientation: Straight/Heterosexual Meds Allergies Allergy/AdvReac Type Severity Reaction Status Date / Time codeine Allergy Intermediate Rash Verified 07/07/22 14:40 Active Medications: Current Medications Acetaminophen (Acetaminophen 325 Mg Tablet) 650 mg PO Q6H PRN PRN Reason: Headache/Pain Mild Scale (1-3) Acetaminophen (Acetaminophen 325 Mg Tablet) 650 mg PO Q6H PRN PRN Reason: arthritis pain Al Hydroxide/Mg Hydroxide (Magnesium Hydrox/Alum Hydrox 30 Ml Oral.Susp) 30 ml PO Q6H PRN PRN Reason: Heartburn/Nausea Aripiprazole (Aripiprazole 20 Mg Tablet) 20 mg PO DAILY [facility] Azathioprine (Azathioprine 50 Mg Tablet) 100 mg PO DAILY [facility] Last Admin: 07/10/22 08:45 Dose: 100 mg Carbidopa/Levodopa (Carbidopa/Levodopa 25/100 Tablet) 1 tab PO TID [facility] Last Admin: 07/10/22 22:01 Dose: 1 tab Folic Acid (Folic Acid 1 Mg Tablet) 1 mg PO DAILY [facility] Last Admin: 07/10/22 08:46 Dose: 1 mg [place] Carbonate ([place] Carbonate 300 Mg Tablet) 450 mg PO BEDTIME [facility] Last Admin: 07/10/22 22:02 Dose: Not Given Loperamide HCl (Loperamide Hcl 2 Mg Capsule) 2 mg PO Q6H PRN PRN Reason: Diarrhea Last Admin: 07/10/22 08:51 Dose: 2 mg Lorazepam (Lorazepam 0.5 Mg Tablet) 0.5 mg PO Q8H PRN PRN Reason: Anxiety Last Admin: 07/08/22 20:22 Dose: 0.5 mg Lorazepam (Lorazepam 0.5 Mg Tablet) 0.5 mg PO BEDTIME PRN PRN Reason: Insomnia Lorazepam (Lorazepam 0.5 Mg Tablet) 0.5 mg PO BEDTIME [facility] Last Admin: 07/10/22 22:02 Dose: Not Given Magnesium Hydroxide (Milk Of Magnesia 30 Ml Oral.Susp) 30 ml PO DAILY PRN PRN Reason: Constipation Oxybutynin Chloride (Oxybutynin Chloride Er 5 Mg Tab.Er.24) 10 mg PO DAILY [facility] Last Admin: 07/10/22 08:45 Dose: 10 mg Primidone (Primidone 50 Mg Tablet) 125 mg PO DAILY [facility] Last Admin: 07/10/22 08:46 Dose: 125 mg Primidone (Primidone 50 Mg Tablet) 100 mg PO BEDTIME [facility] Last Admin: 07/10/22 22:01 Dose: 100 mg Quetiapine Fumarate (Quetiapine Fumarate 25 Mg Tablet) 12.5 mg PO BEDTIME PRN PRN Reason: Insomnia Last Admin: 07/09/22 20:05 Dose: 12.5 mg Trazodone HCl (Trazodone Hcl 50 Mg Tablet) 50 mg PO BEDTIME PRN PRN Reason: Insomnia Trazodone HCl (Trazodone Hcl 100 Mg Tablet) 100 mg PO BEDTIME [facility] Last Admin: 07/10/22 22:02 Dose: 100 mg Venlafaxine HCl (Venlafaxine Hcl Er 37.5 Mg Cap.Er.24h) 187.5 mg PO DAILY [facility] Last Admin: 07/10/22 08:44 Dose: 187.5 mg Exam Exam Date and Time: July 11, 2022 0855 Height,Weight and Vital Signs: Height 5 ft 8 in Weight 94.347 kg Last Vital Signs Temp 98.2 F 07/11/22 06:54 Pulse 67 07/11/22 06:54 Resp 18 07/11/22 06:54 BP 132/83 07/11/22 06:54 Pulse Ox 97 07/11/22 06:54 O2 Del Method 07/11/22 06:54 Pertinent Lab Results Pertinent Lab Results: Laboratory Tests 07/07/22 07/08/22 07/08/22 15:02 08:02 08:02 WBC 5.4 RBC 4.11 L Hgb 13.8 L Hct 40.8 L MCV 99.3 H MCH 33.6 H MCHC 33.8 RDW 12.4 Plt Count 236 MPV 9.5 Immature Gran % (Auto) 0.4 Neut % (Auto) 65.0 Lymph % (Auto) 22.9 [place] % (Auto) 8.0 Eos % (Auto) 3.0 Baso % (Auto) 0.7 Lymph # (Auto) 1.2 [place] # (Auto) 0.4 Eos # (Auto) 0.2 Baso # (Auto) 0.0 Abs Immat Gran (auto) 0.02 Absolute Neuts (auto) 3.5 Absolute Nucleated RBC 0.000 Nucleated RBC % (auto) 0.0 Sodium 137 Potassium 4.6 Chloride 105 Carbon Dioxide 26 Anion Gap 11 L BUN 12 Creatinine 0.88 Estim Creat Clear Calc TNP Estimated GFR > 60 Fasting Glucose 107 H Estimat Average Glucose Hemoglobin A1c % Calcium 9.1 Total Bilirubin 0.4 AST 14 ALT 13 Alkaline Phosphatase 81 Total Protein 6.5 Albumin 4.1 Triglycerides 181 Cholesterol 168 LDL Cholesterol, Calc 98 HDL Cholesterol 34 Vitamin B12 Folate TSH 4.21 H Free T4 0.96 [place] 0.86 07/08/22 07/08/22 08:02 08:02 WBC RBC Hgb Hct MCV MCH MCHC RDW Plt Count MPV Immature Gran % (Auto) Neut % (Auto) Lymph % (Auto) [place] % (Auto) Eos % (Auto) Baso % (Auto) Lymph # (Auto) [place] # (Auto) Eos # (Auto) Baso # (Auto) Abs Immat Gran (auto) Absolute Neuts (auto) Absolute Nucleated RBC Nucleated RBC % (auto) Sodium Potassium Chloride Carbon Dioxide Anion Gap BUN Creatinine Estim Creat Clear Calc Estimated GFR Fasting Glucose Estimat Average Glucose 108 Hemoglobin A1c % 5.4 Calcium Total Bilirubin AST ALT Alkaline Phosphatase Total Protein Albumin Triglycerides Cholesterol LDL Cholesterol, Calc HDL Cholesterol Vitamin B12 746 Folate 18.9 TSH Free T4 [place] Airway Mallampati Class: III TM Dist: >3cm Neck ROM: Full Assessment and Plan Assessment Anesthesia Assessment: Anesthesia Plan Discussed and Chart Reviewed Final Anesthetic Review Family History of Problems with Anesthesia: No History of Problems with Anesthesia: No NPO: Yes ASA Class: III Final Preanesthetic Review: No Changes in Pt Med Stat, Meds/Allgs Chart Reviewed, Consent Obtained/Reviewed and Anes Risks/Benef Reviewed Patient Risk: Intermediate Procedure Risk: Low Anesthetic Plan Anesthetic Plan: GA Disposition: Standard PACU
[2022-07-11] MEDS: Acetaminophen 325 MG TABLET 650 MG PO ×2 (09:22→21:36)
[2022-07-11] MEDS: azaTHIOprine 50 MG TABLET 100 MG PO (10:23)
[2022-07-11] MEDS: Carbidopa/Levodopa 25/100 TABLET 1 TAB PO ×3 (10:24→21:34)
[2022-07-11] MEDS: Primidone 50 MG TABLET 125 MG PO (10:24)
[2022-07-11] MEDS: Folic Acid 1 MG TABLET PO (10:24)
[2022-07-11] MEDS: Venlafaxine HCl ER 37.5 MG CAP.ER.24H 187.5 MG PO (10:25)
[2022-07-11] MEDS: ARIPiprazole 20 MG TABLET PO (10:25)
--- NOTE | 2022-07-11 12:23 | HO.PSYCHPN ---
Subjective Subjective Date of Service: 07/11/22 Reason For Visit: MDD Recurrent Severe w/Psychotic Features Subjective Notes: Conditional Voluntary Interim History: The nursing staff reported the patient has been isolative, withdrawn but pleasant and cooperative. His affect was described as flat and he has been medication compliant since admission. Over the weekend his Abilify was tapered off slowly now at 20 mg daily. He had ECT today without any complications. Last week, the social professionals contact the and they were on board of the plan to do ECT. Also I spoke with her and explain more details about the procedure. They were in agreement of this procedure. On interview, the patient could not remember the we met on ECT, he denies side effects with the current treatment besides confusion after the procedure. Still he, is dysphoric.. Mental Status Exam Mental Status Exam Patient Appearance: Appropriate Patient Orientation: Person and Situation Level of Consciousness: Awake and Appropriate Patient Behavior: Guarded and Passive Mood Description: Withdrawn Affect Description: Constricted Patient Cognition Impaired: Yes Ability to Follow Directions: Good Speech Pattern: Clear Hallucinations: None Delusions: Paranoid Ideation Thought Process: Distracted and Slowed Thinking Thought Content: positive for [place] and positive for [place] Judgement: Fair Diagnostics Vital Signs (24Hr): Vital Signs - 24 hr 07/10/22 20:37 07/11/22 06:54 07/11/22 08:56 Temperature 97.4 F 98.2 F 97.3 F Pulse Rate 69 67 82 Respiratory Rate 16 18 21 H Blood Pressure 138/60 132/83 169/87 H Pulse Oximetry 95 97 96 Oxygen Delivery Method Room Air Room Air Nasal Cannula with ETCO2 Oxygen Flow Rate 2 07/11/22 09:01 07/11/22 09:06 07/11/22 09:11 Temperature Pulse Rate 87 82 87 Respiratory Rate 22 H 21 H 18 Blood Pressure 151/90 H 154/86 H 158/90 H Pulse Oximetry 97 96 96 Oxygen Delivery Method Nasal Cannula with ETCO2 Nasal Cannula with ETCO2 Nasal Cannula with ETCO2 Oxygen Flow Rate 2 2 2 07/11/22 09:26 07/11/22 09:55 Temperature 97.0 F 97.5 F Pulse Rate 74 75 Respiratory Rate 18 16 Blood Pressure 157/89 H 130/82 Pulse Oximetry 96 98 Oxygen Delivery Method Room Air Room Air Oxygen Flow Rate BMI result Body Mass Index 31.6 Labs Results: 07/08/22 08:02 07/08/22 08:02 Medications Medications Current Medications Acetaminophen (Acetaminophen 325 Mg Tablet) 650 mg PO Q6H PRN PRN Reason: Headache/Pain Mild Scale (1-3) Last Admin: 07/11/22 09:22 Dose: 650 mg Acetaminophen (Acetaminophen 325 Mg Tablet) 650 mg PO Q6H PRN PRN Reason: arthritis pain Al Hydroxide/Mg Hydroxide (Magnesium Hydrox/Alum Hydrox 30 Ml Oral.Susp) 30 ml PO Q6H PRN PRN Reason: Heartburn/Nausea Aripiprazole (Aripiprazole 20 Mg Tablet) 20 mg PO DAILY [facility] Last Admin: 07/11/22 10:25 Dose: 20 mg Azathioprine (Azathioprine 50 Mg Tablet) 100 mg PO DAILY [facility] Last Admin: 07/11/22 10:23 Dose: 100 mg Carbidopa/Levodopa (Carbidopa/Levodopa 25/100 Tablet) 1 tab PO TID [facility] Last Admin: 07/11/22 10:24 Dose: 1 tab Folic Acid (Folic Acid 1 Mg Tablet) 1 mg PO DAILY [facility] Last Admin: 07/11/22 10:24 Dose: 1 mg [place] Carbonate ([place] Carbonate 300 Mg Tablet) 450 mg PO BEDTIME [facility] Last Admin: 07/10/22 22:02 Dose: Not Given Loperamide HCl (Loperamide Hcl 2 Mg Capsule) 2 mg PO Q6H PRN PRN Reason: Diarrhea Last Admin: 07/10/22 08:51 Dose: 2 mg Lorazepam (Lorazepam 0.5 Mg Tablet) 0.5 mg PO Q8H PRN PRN Reason: Anxiety Last Admin: 07/08/22 20:22 Dose: 0.5 mg Lorazepam (Lorazepam 0.5 Mg Tablet) 0.5 mg PO BEDTIME PRN PRN Reason: Insomnia Lorazepam (Lorazepam 0.5 Mg Tablet) 0.5 mg PO BEDTIME [facility] Last Admin: 07/10/22 22:02 Dose: Not Given Magnesium Hydroxide (Milk Of Magnesia 30 Ml Oral.Susp) 30 ml PO DAILY PRN PRN Reason: Constipation Oxybutynin Chloride (Oxybutynin Chloride Er 5 Mg Tab.Er.24) 10 mg PO DAILY [facility] Last Admin: 07/11/22 10:25 Dose: 10 mg Primidone (Primidone 50 Mg Tablet) 125 mg PO DAILY [facility] Last Admin: 12/12/22 10:24 Dose: 125 mg Primidone (Primidone 50 Mg Tablet) 100 mg PO BEDTIME [facility] Last Admin: 07/10/22 22:01 Dose: 100 mg Quetiapine Fumarate (Quetiapine Fumarate 25 Mg Tablet) 12.5 mg PO BEDTIME PRN PRN Reason: Insomnia Last Admin: 07/09/22 20:05 Dose: 12.5 mg Trazodone HCl (Trazodone Hcl 50 Mg Tablet) 50 mg PO BEDTIME PRN PRN Reason: Insomnia Trazodone HCl (Trazodone Hcl 100 Mg Tablet) 100 mg PO BEDTIME [facility] Last Admin: 07/10/22 22:02 Dose: 100 mg Venlafaxine HCl (Venlafaxine Hcl Er 37.5 Mg Cap.Er.24h) 187.5 mg PO DAILY [facility] Last Admin: 07/11/22 10:25 Dose: 187.5 mg Allergies Allergies Allergy/AdvReac Type Severity Reaction Status Date / Time codeine Allergy Intermediate Rash Verified 07/07/22 14:40 Assessment & Plan Assessment & Plan (1) Routine medical exam: Status: Acute Code(s): Z00.00 - Encounter for general adult medical examination without abnormal findings Plan 72-year-old male with history of Crohn's disease s/p partial small bowel were stuck carr, osteoarthritis of multiple joints, hyperlipidemia, hypothyroidism, vitamin-B12 deficiency, prediabetes, and 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 #Depression/Suicide attempt with CO poisoning -Plan per psychiatry -ECT evaluation: There is no medical contraindication inhibiting patient undergoing ECT. Cardiac Pre-Op risk 0. #Hypothyroidism -Check TSH with reflex free T4 -Not on levothyroxine at home, ?subclinical hypothyroidism -Initiate levothyroxine if free T4 levels deficient #Vitamin B12 deficiency -Vitamin b12/folate levels pending -Replete as indicated #Parkinsonism- tremor -Continue sinemet #Osteoarthritis -No NSAIDs with Crohns disease- naproxen dc'd -Tylenol 650mg q6h prn #HLD -lipid panel pending -Consider statin if LDL >130 #crohns disease- stable without exacerbation -Continue azathioprine -Immodium prn for diarrhea #Prediabetes -A1c ordered Thank you for allowing me to participate in this consult. Signing off at this time. Please do not hesitate to call for further questions. Psychiatry Plan 1. ECT for Monday. We will do Wednesdays and Fridays as per protocol 2. Lower Effexor up to 150 mg daily. 3. PT consult for the ambulation . 4. Increase Trazodone at hs. 5. We will lower Abilify to 15 mg daily starting tomorrow July 12. 6. Lower Effexor XR to 150 mg po daily on Jul 12. I spent ___20___ minutes with the patient and/or on the patient floor today, greater than?50% of which was spent counseling/coordinating care. Patient educated on: diagnosis, ECT and therapeutic strategies Informed Consent: understands Reason for contiued inpatient stay Substantial Risk for: inability to function, rapid decompensation and med/psych decompensation Time Spent With Patient Time: Total time managing care of this patient today _20___ minutes.
[2022-07-11] MEDS: Loperamide HCl 2 MG CAPSULE PO ×2 (17:13→22:56)
[2022-07-11] MEDS: Lithium Carbonate 300 MG TABLET 450 MG PO (21:35)
[2022-07-11] MEDS: QUEtiapine Fumarate 25 MG TABLET 12.5 MG PO (21:36)
[2022-07-11] MEDS: LORazepam 0.5 MG TABLET PO ×2 (21:36→21:38)
[2022-07-11] MEDS: Primidone 50 MG TABLET 100 MG PO (21:38)
[2022-07-11] MEDS: traZODone HCL 100 MG TABLET PO (21:38)
[2022-07-11] MEDS: traZODone HCL 50 MG TABLET PO (21:38)
[2022-07-12 06:00] VITALS: BP 109/64; PULSE 87; RESP 16; TEMP 36.4; O2SAT 96
[2022-07-12] MEDS: ARIPiprazole 15 MG TABLET PO (09:27)
[2022-07-12] MEDS: Carbidopa/Levodopa 25/100 TABLET 1 TAB PO ×3 (09:28→20:10)
[2022-07-12] MEDS: Folic Acid 1 MG TABLET PO (09:28)
[2022-07-12] MEDS: Primidone 50 MG TABLET 125 MG PO (09:28)
[2022-07-12] MEDS: Venlafaxine HCl ER 150 MG CAP.ER.24H PO (09:28)
[2022-07-12] MEDS: azaTHIOprine 50 MG TABLET 100 MG PO (09:28)
--- NOTE | 2022-07-12 11:30 | P.PNPSI_ITS ---
Subjective Subjective Date of Service: 07/12/22 Reason For Visit: MDD Recurrent Severe w/Psychotic Features Subjective Notes: Conditional Voluntary Interim History: The nursing staff reported the patient had ECT yesterday and she felt bad after that with headaches and some nausea. He has a reported his anxiety and depression over 11/07. He asked for Imodium last night since he had diarrhea. The patient has Crohn's disease. On interview I explained the patient that we are lowering his Abilify since is not helping him for the dysphoria and he has involuntary movements with a CT the ischia. Also will lower his Effexor XR up to 150 mg since his blood pressure was slightly high. He is willing to have ECT tomorrow. We will do some changes on his anesthesia to avoid nausea and headaches. Mental Status Exam Mental Status Exam Patient Appearance: Appropriate Patient Orientation: Person, Place and Situation Level of Consciousness: Awake and Appropriate Patient Behavior: Cooperative and Passive Mood Description: Withdrawn and Depressed Affect Description: Constricted Patient Cognition Impaired: Yes Ability to Follow Directions: Good Speech Pattern: Clear Hallucinations: None Delusions: Not Present Thought Process: Distracted Thought Content: positive for [place] and positive for [place] of Content Judgement: Fair Diagnostics Vital Signs (24Hr): Vital Signs - 24 hr 07/11/22 21:30 07/11/22 22:30 07/12/22 06:00 Temperature 98.6 F 97.6 F Pulse Rate 75 73 87 Respiratory Rate 16 16 16 Blood Pressure 93/49 L 108/59 L 109/64 Pulse Oximetry 94 99 96 Oxygen Delivery Method Room Air Room Air Room Air BMI result Body Mass Index 31.6 Labs Results: 07/08/22 08:02 07/08/22 08:02 Medications Medications Current Medications Acetaminophen (Acetaminophen 325 Mg Tablet) 650 mg PO Q6H PRN PRN Reason: Headache/Pain Mild Scale (1-3) Last Admin: 07/11/22 21:36 Dose: 650 mg Acetaminophen (Acetaminophen 325 Mg Tablet) 650 mg PO Q6H PRN PRN Reason: arthritis pain Al Hydroxide/Mg Hydroxide (Magnesium Hydrox/Alum Hydrox 30 Ml Oral.Susp) 30 ml PO Q6H PRN PRN Reason: Heartburn/Nausea Aripiprazole (Aripiprazole 15 Mg Tablet) 15 mg PO DAILY [facility] Last Admin: 07/12/22 09:27 Dose: 15 mg Azathioprine (Azathioprine 50 Mg Tablet) 100 mg PO DAILY [facility] Last Admin: 07/12/22 09:28 Dose: 100 mg Carbidopa/Levodopa (Carbidopa/Levodopa 25/100 Tablet) 1 tab PO TID [facility] Last Admin: 07/12/22 09:28 Dose: 1 tab Folic Acid (Folic Acid 1 Mg Tablet) 1 mg PO DAILY [facility] Last Admin: 07/12/22 09:28 Dose: 1 mg [place] Carbonate ([place] Carbonate 300 Mg Tablet) 450 mg PO BEDTIME [facility] Last Admin: 07/11/22 21:35 Dose: 450 mg Loperamide HCl (Loperamide Hcl 2 Mg Capsule) 2 mg PO Q6H PRN PRN Reason: Diarrhea Last Admin: 07/11/22 22:56 Dose: 2 mg Lorazepam (Lorazepam 0.5 Mg Tablet) 0.5 mg PO Q8H PRN PRN Reason: Anxiety Last Admin: 07/08/22 20:22 Dose: 0.5 mg Lorazepam (Lorazepam 0.5 Mg Tablet) 0.5 mg PO BEDTIME PRN PRN Reason: Insomnia Last Admin: 07/11/22 21:38 Dose: 0.5 mg Lorazepam (Lorazepam 0.5 Mg Tablet) 0.5 mg PO BEDTIME [facility] Last Admin: 07/11/22 21:36 Dose: 0.5 mg Magnesium Hydroxide (Milk Of Magnesia 30 Ml Oral.Susp) 30 ml PO DAILY PRN PRN Reason: Constipation Oxybutynin Chloride (Oxybutynin Chloride Er 5 Mg Tab.Er.24) 10 mg PO DAILY [facility] Last Admin: 07/12/22 09:29 Dose: 10 mg Primidone (Primidone 50 Mg Tablet) 125 mg PO DAILY [facility] Last Admin: 07/12/22 09:28 Dose: 125 mg Primidone (Primidone 50 Mg Tablet) 100 mg PO BEDTIME [facility] Last Admin: 07/11/22 21:38 Dose: 100 mg Quetiapine Fumarate (Quetiapine Fumarate 25 Mg Tablet) 12.5 mg PO BEDTIME PRN PRN Reason: Insomnia Last Admin: 07/11/22 21:36 Dose: 12.5 mg Trazodone HCl (Trazodone Hcl 50 Mg Tablet) 50 mg PO BEDTIME PRN PRN Reason: Insomnia Last Admin: 07/11/22 21:38 Dose: 50 mg Trazodone HCl (Trazodone Hcl 100 Mg Tablet) 100 mg PO BEDTIME [facility] Last Admin: 07/11/22 21:38 Dose: 100 mg Venlafaxine HCl (Venlafaxine Hcl Er 150 Mg Cap.Er.24h) 150 mg PO DAILY [facility] Last Admin: 07/12/22 09:28 Dose: 150 mg Allergies Allergies Allergy/AdvReac Type Severity Reaction Status Date / Time codeine Allergy Intermediate Rash Verified 07/07/22 14:40 Assessment & Plan Assessment & Plan (1) Routine medical exam: Status: Acute Code(s): Z00.00 - Encounter for general adult medical examination without abnormal findings Plan 72-year-old male with history of Crohn's disease s/p partial small bowel were stuck carr, osteoarthritis of multiple joints, hyperlipidemia, hypothyroidism, vitamin-B12 deficiency, prediabetes, and 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 #Depression/Suicide attempt with CO poisoning -Plan per psychiatry -ECT evaluation: There is no medical contraindication inhibiting patient undergoing ECT. Cardiac Pre-Op risk 0. #Hypothyroidism -Check TSH with reflex free T4 -Not on levothyroxine at home, ?subclinical hypothyroidism -Initiate levothyroxine if free T4 levels deficient #Vitamin B12 deficiency -Vitamin b12/folate levels pending -Replete as indicated #Parkinsonism- tremor -Continue sinemet #Osteoarthritis -No NSAIDs with Crohns disease- naproxen dc'd -Tylenol 650mg q6h prn #HLD -lipid panel pending -Consider statin if LDL >130 #crohns disease- stable without exacerbation -Continue azathioprine -Immodium prn for diarrhea #Prediabetes -A1c ordered Thank you for allowing me to participate in this consult. Signing off at this time. Please do not hesitate to call for further questions. Psychiatry Plan 1. ECT for Monday. We will do Wednesdays and Fridays as per protocol 2. Lower Effexor up to 150 mg daily. 3. PT consult for the ambulation . 4. Increase Trazodone at hs. 5. We will lower Abilify to 15 mg daily starting tomorrow July 12. 6. Lower Effexor XR to 150 mg po daily on Jul 12. I spent ___20___ minutes with the patient and/or on the patient floor today, greater than?50% of which was spent counseling/coordinating care. Reason for contiued inpatient stay Substantial Risk for: inability to function, rapid decompensation and med/psych decompensation Time Spent With Patient Time: Total time managing care of this patient today _20___ minutes.
[2022-07-12 18:00] VITALS: BP 110/68; PULSE 79; RESP 16; TEMP 37.5; O2SAT 97
[2022-07-12] MEDS: traZODone HCL 100 MG TABLET PO (20:09)
[2022-07-12] MEDS: Primidone 50 MG TABLET 100 MG PO (20:09)
[2022-07-12] MEDS: Acetaminophen 325 MG TABLET 650 MG PO (20:22)
[2022-07-12] MEDS: QUEtiapine Fumarate 25 MG TABLET 12.5 MG PO (20:24)
[2022-07-12] MEDS: Loperamide HCl 2 MG CAPSULE PO (20:24)
[2022-07-13] VITALS (9 sets, daily range): BP systolic 107–154; BP diastolic 59–84; PULSE 62–82; RESP 15–20; TEMP 36.3–36.8; O2SAT 95–99
--- NOTE | 2022-07-13 08:10 | HO.ANESPROP2 ---
FORM[facility]LY [facility] Active Problems Active Problems: All Active Problems (Updated 07/07/22 @ 17:49 by TRUE Lebron) Routine medical exam (Acute) Major depressive disorder, recurrent episode with mood-congruent psychotic features (Acute) Hypothyroidism (Acute) Vitamin B12 deficiency (Acute) Parkinsonian features (Acute) Crohn's disease (Acute) Past Medical History Medical History Crohn's disease Hypothyroidism Major depressive disorder, recurrent episode with mood-congruent psychotic features Osteoarthritis Parkinsonian features Vitamin B12 deficiency Functional capacity: independent ambulation Family History Family History Father Stomach cancer Mother Dementia Family history of problems with anesthesia: No Surgical History Surgical History S/P small bowel resection History of Problems with Anesthesia: No Social History Social History Household Members: Spouse Housing: House Do you presently have visiting nurse or other home services: No Patient Tobacco Use Status: Never used Tobacco Use of substances other than those prescribed or required for medical reasons: No Currently Displaying Signs/Symptoms of Drug Intoxication Withdrawal: No Any prior treatment program specific to substance use: No Have you been hit, kicked, punched, or otherwise hurt by someone within the past year? If so, by whom?: No Do you feel safe in your current relationship?: No Is there a partner from a previous relationship who is making you feel unsafe now?: No Are you made to feel afraid or neglected: No Islam Healthcare Practices: Synagogue Advance Directives: No Do you have thoughts of harming others: None Do you have a plan to hurt others: No Plan Recently lost weight without trying: No Poor oral hygiene: No service: Yes Sexual orientation: Straight/Heterosexual Meds Allergies Allergy/AdvReac Type Severity Reaction Status Date / Time codeine Allergy Intermediate Rash Verified 07/07/22 14:40 Active Medications: Current Medications Acetaminophen (Acetaminophen 325 Mg Tablet) 650 mg PO Q6H PRN PRN Reason: Headache/Pain Mild Scale (1-3) Last Admin: 07/12/22 20:22 Dose: 650 mg Acetaminophen (Acetaminophen 325 Mg Tablet) 650 mg PO Q6H PRN PRN Reason: arthritis pain Al Hydroxide/Mg Hydroxide (Magnesium Hydrox/Alum Hydrox 30 Ml Oral.Susp) 30 ml PO Q6H PRN PRN Reason: Heartburn/Nausea Aripiprazole (Aripiprazole 15 Mg Tablet) 15 mg PO DAILY [facility] Last Admin: 07/12/22 09:27 Dose: 15 mg Azathioprine (Azathioprine 50 Mg Tablet) 100 mg PO DAILY [facility] Last Admin: 07/12/22 09:28 Dose: 100 mg Carbidopa/Levodopa (Carbidopa/Levodopa 25/100 Tablet) 1 tab PO TID [facility] Last Admin: 07/12/22 20:10 Dose: 1 tab Folic Acid (Folic Acid 1 Mg Tablet) 1 mg PO DAILY [facility] Last Admin: 07/12/22 09:28 Dose: 1 mg [place] Carbonate ([place] Carbonate 300 Mg Tablet) 450 mg PO BEDTIME [facility] Last Admin: 07/12/22 21:01 Dose: Not Given Loperamide HCl (Loperamide Hcl 2 Mg Capsule) 2 mg PO Q6H PRN PRN Reason: Diarrhea Last Admin: 07/12/22 20:24 Dose: 2 mg Lorazepam (Lorazepam 0.5 Mg Tablet) 0.5 mg PO BEDTIME PRN PRN Reason: Insomnia Last Admin: 07/11/22 21:38 Dose: 0.5 mg Lorazepam (Lorazepam 0.5 Mg Tablet) 0.5 mg PO BEDTIME [facility] Last Admin: 07/12/22 21:02 Dose: Not Given Magnesium Hydroxide (Milk Of Magnesia 30 Ml Oral.Susp) 30 ml PO DAILY PRN PRN Reason: Constipation Oxybutynin Chloride (Oxybutynin Chloride Er 5 Mg Tab.Er.24) 10 mg PO DAILY [facility] Last Admin: 07/12/22 09:29 Dose: 10 mg Primidone (Primidone 50 Mg Tablet) 125 mg PO DAILY [facility] Last Admin: 07/12/22 09:28 Dose: 125 mg Primidone (Primidone 50 Mg Tablet) 100 mg PO BEDTIME [facility] Last Admin: 07/12/22 20:09 Dose: 100 mg Quetiapine Fumarate (Quetiapine Fumarate 25 Mg Tablet) 12.5 mg PO BEDTIME PRN PRN Reason: Insomnia Last Admin: 07/12/22 20:24 Dose: 12.5 mg Trazodone HCl (Trazodone Hcl 50 Mg Tablet) 50 mg PO BEDTIME PRN PRN Reason: Insomnia Last Admin: 07/11/22 21:38 Dose: 50 mg Trazodone HCl (Trazodone Hcl 100 Mg Tablet) 100 mg PO BEDTIME [facility] Last Admin: 07/12/22 20:09 Dose: 100 mg Venlafaxine HCl (Venlafaxine Hcl Er 150 Mg Cap.Er.24h) 150 mg PO DAILY [facility] Last Admin: 07/12/22 09:28 Dose: 150 mg Exam Exam Date and Time: July 13, 2022 0810 Height,Weight and Vital Signs: Height 5 ft 8 in Weight 94.347 kg Last Vital Signs Temp 97.5 F 07/13/22 06:35 Pulse 62 07/13/22 06:35 Resp 18 07/13/22 06:35 BP 131/79 07/13/22 06:35 Pulse Ox 98 07/13/22 06:35 O2 Del Method 07/13/22 06:35 O2 Flow Rate 2 07/11/22 09:11 Pertinent Lab Results Pertinent Lab Results: Laboratory Tests 07/07/22 07/08/22 07/08/22 15:02 08:02 08:02 WBC 5.4 RBC 4.11 L Hgb 13.8 L Hct 40.8 L MCV 99.3 H MCH 33.6 H MCHC 33.8 RDW 12.4 Plt Count 236 MPV 9.5 Immature Gran % (Auto) 0.4 Neut % (Auto) 65.0 Lymph % (Auto) 22.9 [place] % (Auto) 8.0 Eos % (Auto) 3.0 Baso % (Auto) 0.7 Lymph # (Auto) 1.2 [place] # (Auto) 0.4 Eos # (Auto) 0.2 Baso # (Auto) 0.0 Abs Immat Gran (auto) 0.02 Absolute Neuts (auto) 3.5 Absolute Nucleated RBC 0.000 Nucleated RBC % (auto) 0.0 Sodium 137 Potassium 4.6 Chloride 105 Carbon Dioxide 26 Anion Gap 11 L BUN 12 Creatinine 0.88 Estim Creat Clear Calc TNP Estimated GFR > 60 Fasting Glucose 107 H Estimat Average Glucose Hemoglobin A1c % Calcium 9.1 Total Bilirubin 0.4 AST 14 ALT 13 Alkaline Phosphatase 81 Total Protein 6.5 Albumin 4.1 Triglycerides 181 Cholesterol 168 LDL Cholesterol, Calc 98 HDL Cholesterol 34 Vitamin B12 Folate TSH 4.21 H Free T4 0.96 [place] 0.86 07/08/22 07/08/22 08:02 08:02 WBC RBC Hgb Hct MCV MCH MCHC RDW Plt Count MPV Immature Gran % (Auto) Neut % (Auto) Lymph % (Auto) [place] % (Auto) Eos % (Auto) Baso % (Auto) Lymph # (Auto) [place] # (Auto) Eos # (Auto) Baso # (Auto) Abs Immat Gran (auto) Absolute Neuts (auto) Absolute Nucleated RBC Nucleated RBC % (auto) Sodium Potassium Chloride Carbon Dioxide Anion Gap BUN Creatinine Estim Creat Clear Calc Estimated GFR Fasting Glucose Estimat Average Glucose 108 Hemoglobin A1c % 5.4 Calcium Total Bilirubin AST ALT Alkaline Phosphatase Total Protein Albumin Triglycerides Cholesterol LDL Cholesterol, Calc HDL Cholesterol Vitamin B12 746 Folate 18.9 TSH Free T4 [place] Airway Mallampati Class: III TM Dist: >3cm Neck ROM: Full Heart: RRR Lungs: CTA Assessment and Plan Final Anesthetic Review Family History of Problems with Anesthesia: No History of Problems with Anesthesia: No NPO: Yes ASA Class: III Final Preanesthetic Review: No Changes in Pt Med Stat, Meds/Allgs Chart Reviewed, Consent Obtained/Reviewed and Anes Risks/Benef Reviewed Patient Risk: Low Procedure Risk: Low Anesthetic Plan Anesthetic Plan: GA Disposition: Standard PACU
--- NOTE | 2022-07-13 08:13 | P.CONAN_ITS ---
[facility] Active Problems Active Problems: All Active Problems (Updated 07/07/22 @ 17:49 by TRUE Lebron) Routine medical exam (Acute) Major depressive disorder, recurrent episode with mood-congruent psychotic features (Acute) Hypothyroidism (Acute) Vitamin B12 deficiency (Acute) Parkinsonian features (Acute) Crohn's disease (Acute) Past Medical History Medical History Crohn's disease Hypothyroidism Major depressive disorder, recurrent episode with mood-congruent psychotic features Osteoarthritis Parkinsonian features Vitamin B12 deficiency Functional capacity: independent ambulation Family History Family History Father Stomach cancer Mother Dementia Family history of problems with anesthesia: No Surgical History Surgical History S/P small bowel resection History of Problems with Anesthesia: No Social History Social History Household Members: Spouse Housing: House Do you presently have visiting nurse or other home services: No Patient Tobacco Use Status: Never used Tobacco Use of substances other than those prescribed or required for medical reasons: No Currently Displaying Signs/Symptoms of Drug Intoxication Withdrawal: No Any prior treatment program specific to substance use: No Have you been hit, kicked, punched, or otherwise hurt by someone within the past year? If so, by whom?: No Do you feel safe in your current relationship?: No Is there a partner from a previous relationship who is making you feel unsafe now?: No Are you made to feel afraid or neglected: No Sikhism Healthcare Practices: Restorationist Advance Directives: No Do you have thoughts of harming others: None Do you have a plan to hurt others: No Plan Recently lost weight without trying: No Poor oral hygiene: No service: Yes Sexual orientation: Straight/Heterosexual Meds Allergies Allergy/AdvReac Type Severity Reaction Status Date / Time codeine Allergy Intermediate Rash Verified 07/07/22 14:40 Active Medications: Current Medications Acetaminophen (Acetaminophen 325 Mg Tablet) 650 mg PO Q6H PRN PRN Reason: Headache/Pain Mild Scale (1-3) Last Admin: 07/12/22 20:22 Dose: 650 mg Acetaminophen (Acetaminophen 325 Mg Tablet) 650 mg PO Q6H PRN PRN Reason: arthritis pain Acetaminophen (Acetaminophen 325 Mg Tablet) 650 mg PO ONCE PRN PRN Reason: Pain, Mild (Pain Scale 1-3) Al Hydroxide/Mg Hydroxide (Magnesium Hydrox/Alum Hydrox 30 Ml Oral.Susp) 30 ml PO Q6H PRN PRN Reason: Heartburn/Nausea Aripiprazole (Aripiprazole 15 Mg Tablet) 15 mg PO DAILY [facility] Last Admin: 07/12/22 09:27 Dose: 15 mg Azathioprine (Azathioprine 50 Mg Tablet) 100 mg PO DAILY [facility] Last Admin: 07/12/22 09:28 Dose: 100 mg Carbidopa/Levodopa (Carbidopa/Levodopa 25/100 Tablet) 1 tab PO TID [facility] Last Admin: 07/12/22 20:10 Dose: 1 tab Folic Acid (Folic Acid 1 Mg Tablet) 1 mg PO DAILY [facility] Last Admin: 07/12/22 09:28 Dose: 1 mg [place] Carbonate ([place] Carbonate 300 Mg Tablet) 450 mg PO BEDTIME [facility] Last Admin: 07/12/22 21:01 Dose: Not Given Loperamide HCl (Loperamide Hcl 2 Mg Capsule) 2 mg PO Q6H PRN PRN Reason: Diarrhea Last Admin: 07/12/22 20:24 Dose: 2 mg Lorazepam (Lorazepam 0.5 Mg Tablet) 0.5 mg PO BEDTIME PRN PRN Reason: Insomnia Last Admin: 07/11/22 21:38 Dose: 0.5 mg Lorazepam (Lorazepam 0.5 Mg Tablet) 0.5 mg PO BEDTIME [facility] Last Admin: 07/12/22 21:02 Dose: Not Given Magnesium Hydroxide (Milk Of Magnesia 30 Ml Oral.Susp) 30 ml PO DAILY PRN PRN Reason: Constipation Ondansetron HCl (Ondansetron Hcl 4 Mg/2 Ml Vial) 4 mg IVPUSH ONCE PRN PRN Reason: Nausea and Vomiting Oxybutynin Chloride (Oxybutynin Chloride Er 5 Mg Tab.Er.24) 10 mg PO DAILY [facility] Last Admin: 07/12/22 09:29 Dose: 10 mg Primidone (Primidone 50 Mg Tablet) 125 mg PO DAILY [facility] Last Admin: 07/12/22 09:28 Dose: 125 mg Primidone (Primidone 50 Mg Tablet) 100 mg PO BEDTIME [facility] Last Admin: 07/12/22 20:09 Dose: 100 mg Quetiapine Fumarate (Quetiapine Fumarate 25 Mg Tablet) 12.5 mg PO BEDTIME PRN PRN Reason: Insomnia Last Admin: 07/12/22 20:24 Dose: 12.5 mg Trazodone HCl (Trazodone Hcl 50 Mg Tablet) 50 mg PO BEDTIME PRN PRN Reason: Insomnia Last Admin: 07/11/22 21:38 Dose: 50 mg Trazodone HCl (Trazodone Hcl 100 Mg Tablet) 100 mg PO BEDTIME [facility] Last Admin: 07/12/22 20:09 Dose: 100 mg Venlafaxine HCl (Venlafaxine Hcl Er 150 Mg Cap.Er.24h) 150 mg PO DAILY [facility] Last Admin: 07/12/22 09:28 Dose: 150 mg Exam Exam Date and Time: July 13, 2022 0813 Height,Weight and Vital Signs: Height 5 ft 8 in Weight 94.347 kg Last Vital Signs Temp 97.5 F 07/13/22 06:35 Pulse 62 07/13/22 06:35 Resp 18 07/13/22 06:35 BP 131/79 07/13/22 06:35 Pulse Ox 98 07/13/22 06:35 O2 Del Method 07/13/22 06:35 O2 Flow Rate 2 07/11/22 09:11 Pertinent Lab Results Pertinent Lab Results: Laboratory Tests 07/07/22 07/08/22 07/08/22 15:02 08:02 08:02 WBC 5.4 RBC 4.11 L Hgb 13.8 L Hct 40.8 L MCV 99.3 H MCH 33.6 H MCHC 33.8 RDW 12.4 Plt Count 236 MPV 9.5 Immature Gran % (Auto) 0.4 Neut % (Auto) 65.0 Lymph % (Auto) 22.9 [place] % (Auto) 8.0 Eos % (Auto) 3.0 Baso % (Auto) 0.7 Lymph # (Auto) 1.2 [place] # (Auto) 0.4 Eos # (Auto) 0.2 Baso # (Auto) 0.0 Abs Immat Gran (auto) 0.02 Absolute Neuts (auto) 3.5 Absolute Nucleated RBC 0.000 Nucleated RBC % (auto) 0.0 Sodium 137 Potassium 4.6 Chloride 105 Carbon Dioxide 26 Anion Gap 11 L BUN 12 Creatinine 0.88 Estim Creat Clear Calc TNP Estimated GFR > 60 Fasting Glucose 107 H Estimat Average Glucose Hemoglobin A1c % Calcium 9.1 Total Bilirubin 0.4 AST 14 ALT 13 Alkaline Phosphatase 81 Total Protein 6.5 Albumin 4.1 Triglycerides 181 Cholesterol 168 LDL Cholesterol, Calc 98 HDL Cholesterol 34 Vitamin B12 Folate TSH 4.21 H Free T4 0.96 [place] 0.86 07/08/22 07/08/22 08:02 08:02 WBC RBC Hgb Hct MCV MCH MCHC RDW Plt Count MPV Immature Gran % (Auto) Neut % (Auto) Lymph % (Auto) [place] % (Auto) Eos % (Auto) Baso % (Auto) Lymph # (Auto) [place] # (Auto) Eos # (Auto) Baso # (Auto) Abs Immat Gran (auto) Absolute Neuts (auto) Absolute Nucleated RBC Nucleated RBC % (auto) Sodium Potassium Chloride Carbon Dioxide Anion Gap BUN Creatinine Estim Creat Clear Calc Estimated GFR Fasting Glucose Estimat Average Glucose 108 Hemoglobin A1c % 5.4 Calcium Total Bilirubin AST ALT Alkaline Phosphatase Total Protein Albumin Triglycerides Cholesterol LDL Cholesterol, Calc HDL Cholesterol Vitamin B12 746 Folate 18.9 TSH Free T4 [place] Airway Mallampati Class: III TM Dist: >3cm Neck ROM: Full Heart: RRR Lungs: CTA Assessment and Plan Final Anesthetic Review Family History of Problems with Anesthesia: No History of Problems with Anesthesia: No ASA Class: III Final Preanesthetic Review: No Changes in Pt Med Stat, Meds/Allgs Chart Reviewed, Consent Obtained/Reviewed and Anes Risks/Benef Reviewed Patient Risk: Low Procedure Risk: Low Anesthetic Plan Anesthetic Plan: GA Disposition: Standard PACU
--- NOTE | 2022-07-13 08:17 | HO.ECTPROC ---
ECT Procedure Note Diagnosis/Treatment Date of Service: 07/13/22 Diagnosis: Major Depressive Disorder Previous ECT Date: 07/11/22 Current Treatment Number: 2 Treatment: Series Interval Clinical Notes: doing ok with 20 mg dose abilify states less tremulous PALACIOS with first ect Time: Total time managing care of this patient today ____ minutes. ECT Settings Device: THYMATRON DGx Program/Pulse Width: 0.50 Energy Percent: 100 Seizure Duration By EEG (in seconds): 25 Medications Administration General Anesthetic: Etomidate (16) Muscle Relaxant: Succinylcholine (120) Ancillary Medications Analgesics: Torodol - Pre ECT Anti-emetics: Zofran - Pre ECT Miscillaneous Medications: Propofol (30) Airway Management Airway Management: Bag Mask Ventilation Treatment Recommendations Notes: seizure 25 sec would lower etom 14 mg consider rtlf or bf Pt Tolerated Procedure w/o Issue: Yes
--- NOTE | 2022-07-13 08:18 | HO.POSTANES ---
Post Anesthesia Evaluation Post Anesthesia Evaluation Vital Signs: Vital Signs Temp Pulse Resp BP Pulse Ox O2 Del Method O2 Flow Rate 07/13/22 08:15 98.3 F 71 20 154/79 H 63 L Nasal Cannula with ETCO2 4 07/13/22 06:35 97.5 F 62 18 131/79 98 Room Air 07/13/22 05:53 97.3 F 66 16 129/76 99 07/13/22 05:51 97.3 F 66 16 129/76 99 Room Air Anesthesia: General Mental Status: Awake Pain Control: Satisfactory Nausea/Vomiting: None Hydration: Adequate Anesthesia-Related Issues: No Anes. Related Issues
[2022-07-13] MEDS: Acetaminophen 325 MG TABLET 650 MG PO (08:50)
[2022-07-13] MEDS: ondansetron HCL 4 MG/2 ML VIAL IVPUSH (08:50)
[2022-07-13] MEDS: ARIPiprazole 10 MG TABLET PO (10:32)
[2022-07-13] MEDS: Venlafaxine HCl ER 150 MG CAP.ER.24H PO (10:32)
[2022-07-13] MEDS: azaTHIOprine 50 MG TABLET 100 MG PO (10:32)
[2022-07-13] MEDS: Folic Acid 1 MG TABLET PO (10:32)
[2022-07-13] MEDS: Carbidopa/Levodopa 25/100 TABLET 1 TAB PO ×3 (10:32→21:10)
--- NOTE | 2022-07-13 10:32 | HO.PSYCHPN ---
Subjective Subjective Date of Service: 07/13/22 Reason For Visit: MDD Recurrent Severe w/Psychotic Features Subjective Notes: Conditional Voluntary Interim History: The nursing assessment reports that the patient has been isolative, dysphoric mostly in his room. He was very anxious for ECT because his 1st 1 he had side effects. Today he went to ECT. We had been lower his Abilify since he was not working and he had involuntary movements. We are going to lower Abilify 10 mg today. The occupational therapist reported that she is going to start doing a mobility assessment since probably he does not need a walker. We will follow ESS min. Today he came today ECT and he came but slightly sedated after the procedure in the morning. No nausea at this moment. Later in the afternoon he reported that he felt much better still with mild tremors but much less since Abilify has been lower. His mood improved slightly better. Mental Status Exam Mental Status Exam Patient Appearance: Well Grooomed and Appropriate Patient Orientation: Person and Situation Level of Consciousness: Awake and Appropriate Patient Behavior: Guarded and Cooperative Mood Description: Calm Affect Description: Withdrawn Patient Cognition Impaired: Yes Ability to Follow Directions: Good Speech Pattern: Clear Hallucinations: None Delusions: Paranoid Ideation and Ideas of Reference Thought Process: Distracted Thought Content: positive for Circumstantial Judgement: Fair Diagnostics Vital Signs (24Hr): Vital Signs - 24 hr 07/12/22 18:00 07/13/22 05:51 07/13/22 05:53 Temperature 99.5 F 97.3 F 97.3 F Pulse Rate 79 66 66 Respiratory Rate 16 16 16 Blood Pressure 110/68 129/76 129/76 Pulse Oximetry 97 99 99 Oxygen Delivery Method Room Air Room Air Oxygen Flow Rate 07/13/22 06:35 07/13/22 08:15 07/13/22 08:20 Temperature 97.5 F 98.3 F Pulse Rate 62 71 73 Respiratory Rate 18 20 18 Blood Pressure 131/79 154/79 H 152/84 H Pulse Oximetry 98 96 96 Oxygen Delivery Method Room Air Nasal Cannula with ETCO2 Nasal Cannula with ETCO2 Oxygen Flow Rate 4 4 07/13/22 08:25 07/13/22 08:30 07/13/22 08:45 Temperature 98.3 F Pulse Rate 72 71 65 Respiratory Rate 20 15 17 Blood Pressure 145/80 H 152/82 H 142/59 H Pulse Oximetry 96 97 96 Oxygen Delivery Method Nasal Cannula with ETCO2 Room Air Room Air Oxygen Flow Rate 4 BMI result Body Mass Index 31.6 Labs Results: 07/08/22 08:02 07/08/22 08:02 Medications Medications Current Medications Acetaminophen (Acetaminophen 325 Mg Tablet) 650 mg PO Q6H PRN PRN Reason: Headache/Pain Mild Scale (1-3) Last Admin: 07/12/22 20:22 Dose: 650 mg Acetaminophen (Acetaminophen 325 Mg Tablet) 650 mg PO Q6H PRN PRN Reason: arthritis pain Al Hydroxide/Mg Hydroxide (Magnesium Hydrox/Alum Hydrox 30 Ml Oral.Susp) 30 ml PO Q6H PRN PRN Reason: Heartburn/Nausea Aripiprazole (Aripiprazole 10 Mg Tablet) 10 mg PO DAILY [facility] Azathioprine (Azathioprine 50 Mg Tablet) 100 mg PO DAILY [facility] Last Admin: 07/12/22 09:28 Dose: 100 mg Carbidopa/Levodopa (Carbidopa/Levodopa 25/100 Tablet) 1 tab PO TID [facility] Last Admin: 07/12/22 20:10 Dose: 1 tab Folic Acid (Folic Acid 1 Mg Tablet) 1 mg PO DAILY [facility] Last Admin: 07/12/22 09:28 Dose: 1 mg [place] Carbonate ([place] Carbonate 300 Mg Tablet) 450 mg PO BEDTIME [facility] Last Admin: 07/12/22 21:01 Dose: Not Given Loperamide HCl (Loperamide Hcl 2 Mg Capsule) 2 mg PO Q6H PRN PRN Reason: Diarrhea Last Admin: 07/12/22 20:24 Dose: 2 mg Lorazepam (Lorazepam 0.5 Mg Tablet) 0.5 mg PO BEDTIME PRN PRN Reason: Insomnia Last Admin: 07/11/22 21:38 Dose: 0.5 mg Lorazepam (Lorazepam 0.5 Mg Tablet) 0.5 mg PO BEDTIME [facility] Last Admin: 07/12/22 21:02 Dose: Not Given Magnesium Hydroxide (Milk Of Magnesia 30 Ml Oral.Susp) 30 ml PO DAILY PRN PRN Reason: Constipation Oxybutynin Chloride (Oxybutynin Chloride Er 5 Mg Tab.Er.24) 10 mg PO DAILY [facility] Last Admin: 07/12/22 09:29 Dose: 10 mg Primidone (Primidone 50 Mg Tablet) 125 mg PO DAILY [facility] Last Admin: 07/12/22 09:28 Dose: 125 mg Primidone (Primidone 50 Mg Tablet) 100 mg PO BEDTIME [facility] Last Admin: 07/12/22 20:09 Dose: 100 mg Quetiapine Fumarate (Quetiapine Fumarate 25 Mg Tablet) 12.5 mg PO BEDTIME PRN PRN Reason: Insomnia Last Admin: 07/12/22 20:24 Dose: 12.5 mg Trazodone HCl (Trazodone Hcl 50 Mg Tablet) 50 mg PO BEDTIME PRN PRN Reason: Insomnia Last Admin: 07/11/22 21:38 Dose: 50 mg Trazodone HCl (Trazodone Hcl 100 Mg Tablet) 100 mg PO BEDTIME [facility] Last Admin: 07/12/22 20:09 Dose: 100 mg Venlafaxine HCl (Venlafaxine Hcl Er 150 Mg Cap.Er.24h) 150 mg PO DAILY [facility] Last Admin: 07/12/22 09:28 Dose: 150 mg Allergies Allergies Allergy/AdvReac Type Severity Reaction Status Date / Time codeine Allergy Intermediate Rash Verified 07/07/22 14:40 Assessment & Plan Assessment & Plan (1) Routine medical exam: Status: Acute Code(s): Z00.00 - Encounter for general adult medical examination without abnormal findings Plan 72-year-old male with history of Crohn's disease s/p partial small bowel were stuck carr, osteoarthritis of multiple joints, hyperlipidemia, hypothyroidism, vitamin-B12 deficiency, prediabetes, and parkinsonian like tremor on Sinemet admitted to Psychiatry after being transferred from the [facility] following suicide attempt with carbon monoxide poisoning, for ECT, with consult placed to Medicine for H&P and ECT evaluation. #Depression/Suicide attempt with CO poisoning -Plan per psychiatry -ECT evaluation: There is no medical contraindication inhibiting patient undergoing ECT. Cardiac Pre-Op risk 0. #Hypothyroidism -Check TSH with reflex free T4 -Not on levothyroxine at home, ?subclinical hypothyroidism -Initiate levothyroxine if free T4 levels deficient #Vitamin B12 deficiency -Vitamin b12/folate levels pending -Replete as indicated #Parkinsonism- tremor -Continue sinemet #Osteoarthritis -No NSAIDs with Crohns disease- naproxen dc'd -Tylenol 650mg q6h prn #HLD -lipid panel pending -Consider statin if LDL >130 #crohns disease- stable without exacerbation -Continue azathioprine -Immodium prn for diarrhea #Prediabetes -A1c ordered Thank you for allowing me to participate in this consult. Signing off at this time. Please do not hesitate to call for further questions. Psychiatry Plan 1. ECT for Monday. We will do Wednesdays and Fridays as per protocol. 2. Lower Effexor up to 150 mg daily. 3. PT consult for the ambulation . 4. Increase Trazodone at hs. 5. We will lower Abilify to 10 mg daily starting tomorrow July 13. We will keep on this dose for the next 3 days and later we will go to 5 and then discontinue. We will discuss the possibility of adding Seroquel XR as augmentation for depression. 6. Lower Effexor XR to 150 mg po daily on Jul 12. We have discussed the possibility do changed to tree cyclic antidepressants since he has depression with melancholia. I spent ___20___ minutes with the patient and/or on the patient floor today, greater than?50% of which was spent counseling/coordinating care. Reason for contiued inpatient stay Substantial Risk for: inability to function, rapid decompensation and med/psych decompensation Time Spent With Patient Time: Total time managing care of this patient today _20___ minutes.
[2022-07-13] MEDS: Primidone 50 MG TABLET 125 MG PO (10:33)
[2022-07-13] MEDS: Lithium Carbonate 300 MG TABLET 450 MG PO (21:09)
[2022-07-13] MEDS: traZODone HCL 100 MG TABLET PO (21:09)
[2022-07-13] MEDS: LORazepam 0.5 MG TABLET PO (21:10)
[2022-07-13] MEDS: Primidone 50 MG TABLET 100 MG PO (21:10)
--- NOTE | 2022-07-13 22:06 | HO.ECTPROC ---
ECT Procedure Note Diagnosis/Treatment Date of Service: 07/13/22 Diagnosis: Major Depressive Disorder Current Treatment Number: 2 Treatment: Series Interval Clinical Notes: pt Time: Total time managing care of this patient today ____ minutes. ECT Settings Device: THYMATRON DGx
[2022-07-14 06:00] VITALS: BP 83/60; PULSE 97; RESP 16; TEMP 36.7; O2SAT 96
[2022-07-14 07:00] VITALS: BMI 30.6
[2022-07-14] MEDS: Primidone 50 MG TABLET 125 MG PO (09:45)
[2022-07-14] MEDS: ARIPiprazole 10 MG TABLET PO (09:49)
[2022-07-14] MEDS: azaTHIOprine 50 MG TABLET 100 MG PO (09:49)
[2022-07-14] MEDS: Carbidopa/Levodopa 25/100 TABLET 1 TAB PO ×3 (09:49→20:54)
[2022-07-14] MEDS: Venlafaxine HCl ER 150 MG CAP.ER.24H PO (09:50)
[2022-07-14] MEDS: Folic Acid 1 MG TABLET PO (09:50)
[2022-07-14] MEDS: Loperamide HCl 2 MG CAPSULE PO ×2 (10:57→20:54)
[2022-07-14 20:15] VITALS: BP 134/72; PULSE 82; RESP 16; TEMP 36.5; O2SAT 97
[2022-07-14] MEDS: traZODone HCL 100 MG TABLET PO (20:52)
[2022-07-14] MEDS: Acetaminophen 325 MG TABLET 650 MG PO (20:53)
[2022-07-14] MEDS: Primidone 50 MG TABLET 100 MG PO (21:00)
--- NOTE | 2022-07-14 21:22 | P.PNPSI_ITS ---
Subjective Subjective Date of Service: 07/14/22 Reason For Visit: MDD Recurrent Severe w/Psychotic Features Subjective Notes: Conditional Voluntary Interim History: Pt depressed flat still with paranoid concerns Mental Status Exam Mental Status Exam Patient Appearance: Well Grooomed and Appropriate Patient Orientation: Person, Place and Situation Level of Consciousness: Awake and Appropriate Patient Behavior: Guarded and Cooperative Mood Description: Calm Affect Description: Withdrawn and Constricted Patient Cognition Impaired: Yes Ability to Follow Directions: Good Speech Pattern: Clear Hallucinations: None Delusions: Paranoid Ideation and Ideas of Reference Thought Process: Distracted Thought Content: positive for Circumstantial Judgement: Fair Diagnostics Vital Signs (24Hr): Vital Signs - 24 hr 07/14/22 06:00 07/14/22 20:15 Temperature 98.0 F 97.7 F Pulse Rate 97 82 Respiratory Rate 16 16 Blood Pressure 83/60 L 134/72 Pulse Oximetry 96 97 Oxygen Delivery Method Room Air Room Air BMI result Body Mass Index 30.6 Labs Results: 07/08/22 08:02 07/08/22 08:02 Medications Medications Current Medications Acetaminophen (Acetaminophen 325 Mg Tablet) 650 mg PO Q6H PRN PRN Reason: Headache/Pain Mild Scale (1-3) Last Admin: 07/14/22 20:53 Dose: 650 mg Acetaminophen (Acetaminophen 325 Mg Tablet) 650 mg PO Q6H PRN PRN Reason: arthritis pain Al Hydroxide/Mg Hydroxide (Magnesium Hydrox/Alum Hydrox 30 Ml Oral.Susp) 30 ml PO Q6H PRN PRN Reason: Heartburn/Nausea Aripiprazole (Aripiprazole 10 Mg Tablet) 10 mg PO DAILY [facility] Last Admin: 07/14/22 09:49 Dose: 10 mg Azathioprine (Azathioprine 50 Mg Tablet) 100 mg PO DAILY [facility] Last Admin: 07/14/22 09:49 Dose: 100 mg Carbidopa/Levodopa (Carbidopa/Levodopa 25/100 Tablet) 1 tab PO TID [facility] Last Admin: 07/14/22 20:54 Dose: 1 tab Folic Acid (Folic Acid 1 Mg Tablet) 1 mg PO DAILY [facility] Last Admin: 07/14/22 09:50 Dose: 1 mg [place] Carbonate ([place] Carbonate 300 Mg Tablet) 450 mg PO BEDTIME [facility] Last Admin: 07/14/22 21:00 Dose: Not Given Loperamide HCl (Loperamide Hcl 2 Mg Capsule) 2 mg PO Q6H PRN PRN Reason: Diarrhea Last Admin: 07/14/22 20:54 Dose: 2 mg Magnesium Hydroxide (Milk Of Magnesia 30 Ml Oral.Susp) 30 ml PO DAILY PRN PRN Reason: Constipation Oxybutynin Chloride (Oxybutynin Chloride Er 5 Mg Tab.Er.24) 10 mg PO DAILY [facility] Last Admin: 07/14/22 09:49 Dose: 10 mg Primidone (Primidone 50 Mg Tablet) 125 mg PO DAILY [facility] Last Admin: 07/14/22 09:45 Dose: 125 mg Primidone (Primidone 50 Mg Tablet) 100 mg PO BEDTIME [facility] Last Admin: 07/14/22 21:00 Dose: 100 mg Quetiapine Fumarate (Quetiapine Fumarate 25 Mg Tablet) 12.5 mg PO BEDTIME PRN PRN Reason: Insomnia Last Admin: 07/12/22 20:24 Dose: 12.5 mg Trazodone HCl (Trazodone Hcl 50 Mg Tablet) 50 mg PO BEDTIME PRN PRN Reason: Insomnia Last Admin: 07/11/22 21:38 Dose: 50 mg Trazodone HCl (Trazodone Hcl 100 Mg Tablet) 100 mg PO BEDTIME [facility] Last Admin: 07/14/22 20:52 Dose: 100 mg Venlafaxine HCl (Venlafaxine Hcl Er 150 Mg Cap.Er.24h) 150 mg PO DAILY [facility] Last Admin: 07/14/22 09:50 Dose: 150 mg Allergies Allergies Allergy/AdvReac Type Severity Reaction Status Date / Time codeine Allergy Intermediate Rash Verified 07/07/22 14:40 Assessment & Plan Assessment & Plan (1) Routine medical exam: Status: Acute Code(s): Z00.00 - Encounter for general adult medical examination without abnormal findings Plan 72-year-old male with history of Crohn's disease s/p partial small bowel were stuck carr, osteoarthritis of multiple joints, hyperlipidemia, hypothyroidism, vitamin-B12 deficiency, prediabetes, and parkinsonian like tremor on Sinemet admitted to Psychiatry after being transferred from the [facility] following suicide attempt with carbon monoxide poisoning, for ECT, with consult placed to Medicine for H&P and ECT evaluation. #Depression/Suicide attempt with CO poisoning -Plan per psychiatry -ECT evaluation: There is no medical contraindication inhibiting patient undergoing ECT. Cardiac Pre-Op risk 0. #Hypothyroidism -Check TSH with reflex free T4 -Not on levothyroxine at home, ?subclinical hypothyroidism -Initiate levothyroxine if free T4 levels deficient #Vitamin B12 deficiency -Vitamin b12/folate levels pending -Replete as indicated #Parkinsonism- tremor -Continue sinemet #Osteoarthritis -No NSAIDs with Crohns disease- naproxen dc'd -Tylenol 650mg q6h prn #HLD -lipid panel pending -Consider statin if LDL >130 #crohns disease- stable without exacerbation -Continue azathioprine -Immodium prn for diarrhea #Prediabetes -A1c ordered Thank you for allowing me to participate in this consult. Signing off at this time. Please do not hesitate to call for further questions. Psychiatry Plan 1. ECT for Monday. We will do Wednesdays and Fridays as per protocol. 2. Lower Effexor up to 150 mg daily. 3. PT consult for the ambulation . 4. Increase Trazodone at hs. 5. We will lower Abilify to 10 mg daily starting tomorrow July 13. We will keep on this dose for the next 3 days and later we will go to 5 and then discontinue. We will discuss the possibility of adding Seroquel XR as augmentation for depression. 6. Lower Effexor XR to 150 mg po daily on Jul 12. We have discussed the possibility do changed to tree cyclic antidepressants since he has depression with melancholia. 07/14/22 Pt seen mood depressed flat denies si remains with PI I spent minutes with the patient and/or on the patient floor today, g reater than?50% of which was spent counseling/coordinating care. Reason for contiued inpatient stay Substantial Risk for: harm to self, inability to function and rapid decompensation Time Spent With Patient Time: Total time managing care of this patient today ____ minutes.
--- NOTE | 2022-07-14 23:53 | PC.NURSE ---
Pt orthostatic hypotension BP's taken @ 2029 : Lying - 114/51 HR 67 Sitting - 129/67 HR 80 Standing - 123/71 HR 88
[2022-07-15] VITALS (9 sets, daily range): BP systolic 113–168; BP diastolic 56–84; PULSE 62–102; RESP 12–20; TEMP 35.6–36.4; O2SAT 96–99; BMI 30.5
--- NOTE | 2022-07-15 08:02 | P.CONAN_ITS ---
[facility] Active Problems Active Problems: All Active Problems (Updated 07/07/22 @ 17:49 by TRUE Lebron) Routine medical exam (Acute) Major depressive disorder, recurrent episode with mood-congruent psychotic features (Acute) Hypothyroidism (Acute) Vitamin B12 deficiency (Acute) Parkinsonian features (Acute) Crohn's disease (Acute) Past Medical History Medical History Crohn's disease Hypothyroidism Major depressive disorder, recurrent episode with mood-congruent psychotic features Osteoarthritis Parkinsonian features Vitamin B12 deficiency Functional capacity: independent ambulation Family History Family History Father Stomach cancer Mother Dementia Family history of problems with anesthesia: No Surgical History Surgical History S/P small bowel resection History of Problems with Anesthesia: No Social History Social History Household Members: Spouse Housing: House Do you presently have visiting nurse or other home services: No Patient Tobacco Use Status: Never used Tobacco Use of substances other than those prescribed or required for medical reasons: No Currently Displaying Signs/Symptoms of Drug Intoxication Withdrawal: No Any prior treatment program specific to substance use: No Have you been hit, kicked, punched, or otherwise hurt by someone within the past year? If so, by whom?: No Do you feel safe in your current relationship?: No Is there a partner from a previous relationship who is making you feel unsafe now?: No Are you made to feel afraid or neglected: No Sikhism Healthcare Practices: Voodoo Are you DNR?: No Advance Directives: No Do you have thoughts of harming others: None Do you have a plan to hurt others: No Plan Recently lost weight without trying: No Nutrition Risks: No Nutritional Risk Poor oral hygiene: No service: Yes Sexual orientation: Straight/Heterosexual Meds Allergies Allergy/AdvReac Type Severity Reaction Status Date / Time codeine Allergy Intermediate Rash Verified 07/07/22 14:40 Active Medications: Current Medications Acetaminophen (Acetaminophen 325 Mg Tablet) 650 mg PO Q6H PRN PRN Reason: Headache/Pain Mild Scale (1-3) Last Admin: 07/14/22 20:53 Dose: 650 mg Acetaminophen (Acetaminophen 325 Mg Tablet) 650 mg PO Q6H PRN PRN Reason: arthritis pain Al Hydroxide/Mg Hydroxide (Magnesium Hydrox/Alum Hydrox 30 Ml Oral.Susp) 30 ml PO Q6H PRN PRN Reason: Heartburn/Nausea Aripiprazole (Aripiprazole 10 Mg Tablet) 10 mg PO DAILY [facility] Last Admin: 07/14/22 09:49 Dose: 10 mg Azathioprine (Azathioprine 50 Mg Tablet) 100 mg PO DAILY [facility] Last Admin: 07/14/22 09:49 Dose: 100 mg Carbidopa/Levodopa (Carbidopa/Levodopa 25/100 Tablet) 1 tab PO TID [facility] Last Admin: 07/14/22 20:54 Dose: 1 tab Folic Acid (Folic Acid 1 Mg Tablet) 1 mg PO DAILY [facility] Last Admin: 07/14/22 09:50 Dose: 1 mg [place] Carbonate ([place] Carbonate 300 Mg Tablet) 450 mg PO BEDTIME [facility] Last Admin: 07/14/22 21:00 Dose: Not Given Loperamide HCl (Loperamide Hcl 2 Mg Capsule) 2 mg PO Q6H PRN PRN Reason: Diarrhea Last Admin: 07/14/22 20:54 Dose: 2 mg Magnesium Hydroxide (Milk Of Magnesia 30 Ml Oral.Susp) 30 ml PO DAILY PRN PRN Reason: Constipation Oxybutynin Chloride (Oxybutynin Chloride Er 5 Mg Tab.Er.24) 10 mg PO DAILY [facility] Last Admin: 07/14/22 09:49 Dose: 10 mg Primidone (Primidone 50 Mg Tablet) 125 mg PO DAILY [facility] Last Admin: 07/14/22 09:45 Dose: 125 mg Primidone (Primidone 50 Mg Tablet) 100 mg PO BEDTIME [facility] Last Admin: 07/14/22 21:00 Dose: 100 mg Quetiapine Fumarate (Quetiapine Fumarate 25 Mg Tablet) 12.5 mg PO BEDTIME PRN PRN Reason: Insomnia Last Admin: 07/12/22 20:24 Dose: 12.5 mg Trazodone HCl (Trazodone Hcl 50 Mg Tablet) 50 mg PO BEDTIME PRN PRN Reason: Insomnia Last Admin: 07/11/22 21:38 Dose: 50 mg Trazodone HCl (Trazodone Hcl 100 Mg Tablet) 100 mg PO BEDTIME [facility] Last Admin: 07/14/22 20:52 Dose: 100 mg Venlafaxine HCl (Venlafaxine Hcl Er 150 Mg Cap.Er.24h) 150 mg PO DAILY [facility] Last Admin: 07/14/22 09:50 Dose: 150 mg Exam Exam Date and Time: July 15, 2022 0802 Height,Weight and Vital Signs: Height 5 ft 8 in Weight 91.172 kg Last Vital Signs Temp 96.1 F L 07/15/22 06:21 Pulse 70 07/15/22 06:21 Resp 18 07/15/22 06:21 BP 129/65 07/15/22 06:21 Pulse Ox 99 07/15/22 06:21 O2 Del Method 07/15/22 06:21 O2 Flow Rate 4 07/13/22 08:25 Pertinent Lab Results Pertinent Lab Results: Laboratory Tests 07/07/22 07/08/22 07/08/22 15:02 08:02 08:02 WBC 5.4 RBC 4.11 L Hgb 13.8 L Hct 40.8 L MCV 99.3 H MCH 33.6 H MCHC 33.8 RDW 12.4 Plt Count 236 MPV 9.5 Immature Gran % (Auto) 0.4 Neut % (Auto) 65.0 Lymph % (Auto) 22.9 [place] % (Auto) 8.0 Eos % (Auto) 3.0 Baso % (Auto) 0.7 Lymph # (Auto) 1.2 [place] # (Auto) 0.4 Eos # (Auto) 0.2 Baso # (Auto) 0.0 Abs Immat Gran (auto) 0.02 Absolute Neuts (auto) 3.5 Absolute Nucleated RBC 0.000 Nucleated RBC % (auto) 0.0 Sodium 137 Potassium 4.6 Chloride 105 Carbon Dioxide 26 Anion Gap 11 L BUN 12 Creatinine 0.88 Estim Creat Clear Calc TNP Estimated GFR > 60 Fasting Glucose 107 H Estimat Average Glucose Hemoglobin A1c % Calcium 9.1 Total Bilirubin 0.4 AST 14 ALT 13 Alkaline Phosphatase 81 Total Protein 6.5 Albumin 4.1 Triglycerides 181 Cholesterol 168 LDL Cholesterol, Calc 98 HDL Cholesterol 34 Vitamin B12 Folate TSH 4.21 H Free T4 0.96 [place] 0.86 07/08/22 07/08/22 08:02 08:02 WBC RBC Hgb Hct MCV MCH MCHC RDW Plt Count MPV Immature Gran % (Auto) Neut % (Auto) Lymph % (Auto) [place]imes % (Auto) Eos % (Auto) Baso % (Auto) Lymph # (Auto) Grimes # (Auto) Eos # (Auto) Baso # (Auto) Abs Immat Gran (auto) Absolute Neuts (auto) Absolute Nucleated RBC Nucleated RBC % (auto) Sodium Potassium Chloride Carbon Dioxide Anion Gap BUN Creatinine Estim Creat Clear Calc Estimated GFR Fasting Glucose Estimat Average Glucose 108 Hemoglobin A1c % 5.4 Calcium Total Bilirubin AST ALT Alkaline Phosphatase Total Protein Albumin Triglycerides Cholesterol LDL Cholesterol, Calc HDL Cholesterol Vitamin B12 746 Folate 18.9 TSH Free T4 [place] Airway Mallampati Class: II TM Dist: >3cm Neck ROM: Full Heart: rrr Lungs: cta Assessment and Plan Assessment Anesthesia Assessment: Anesthesia Plan Discussed and Chart Reviewed Final Anesthetic Review Family History of Problems with Anesthesia: No History of Problems with Anesthesia: No NPO: Yes ASA Class: III Final Preanesthetic Review: No Changes in Pt Med Stat, Meds/Allgs Chart Reviewed and Consent Obtained/Reviewed Patient Risk: Intermediate Procedure Risk: Intermediate Anesthetic Plan Anesthetic Plan: GA Disposition: Standard PACU
--- NOTE | 2022-07-15 08:05 | MHC.SHP ---
Pre-Procedural Eval Section A Date of Service: 07/15/22 The patient is an INPATIENT: Yes Changes since office visit: Yes Changes in Medication and Yes Patient answered all questions; No Cold of Flu in the past 2 weeks and No New Medical Problems The History & Physical has been completed within 30 days and I have reviewed it.: Yes Section B Chief Complaint: MDD Recurrent Severe w/Psychotic Features Allergies: Allergies Allergy/AdvReac Type Severity Reaction Status Date / Time codeine Allergy Intermediate Rash Verified 07/07/22 14:40 Plan I have reviewed the history and physical and performed a pertinent physical examination on my patient. No changes have occurred unless specified. Time Spent With Patient Time: Total time managing care of this patient today ____ minutes.
--- NOTE | 2022-07-15 09:05 | HO.ECTPROC ---
ECT Procedure Note Diagnosis/Treatment Date of Service: 07/15/22 Diagnosis: Major Depressive Disorder Previous ECT Date: 07/13/22 Current Treatment Number: 3 Treatment: Series Interval Clinical Notes: pt mood depressed still with PI Time: Total time managing care of this patient today ____ minutes. ECT Settings Device: THYMATRON DGx Electrode Placement: Rt temporal/ Lt frontal Program/Pulse Width: 0.25 Energy Percent: 100 Seizure Duration By EEG (in seconds): 14 Medications Administration General Anesthetic: Etomidate (16) Muscle Relaxant: Succinylcholine (120) Ancillary Medications Analgesics: Torodol - Pre ECT Anti-emetics: Zofran - Pre ECT Miscillaneous Medications: Propofol (30) Airway Management Airway Management: Bag Mask Ventilation Treatment Recommendations Electrode Placement: Bitemporal Program/Pulse Width: 0.50 Energy Percent: 100 Notes: change to BT 0.5 program Pt Tolerated Procedure w/o Issue: Yes
[2022-07-15] MEDS: Acetaminophen 325 MG TABLET 650 MG PO (09:08)
[2022-07-15] MEDS: Primidone 50 MG TABLET 125 MG PO (10:04)
[2022-07-15] MEDS: Venlafaxine HCl ER 150 MG CAP.ER.24H PO (10:04)
[2022-07-15] MEDS: Folic Acid 1 MG TABLET PO (10:05)
[2022-07-15] MEDS: azaTHIOprine 50 MG TABLET 100 MG PO (10:05)
[2022-07-15] MEDS: Carbidopa/Levodopa 25/100 TABLET 1 TAB PO ×3 (10:06→20:41)
[2022-07-15] MEDS: ARIPiprazole 10 MG TABLET PO (10:06)
[2022-07-15] MEDS: Loperamide HCl 2 MG CAPSULE PO (15:54)
--- NOTE | 2022-07-15 17:31 | HO.PSYCHPN ---
Subjective Subjective Date of Service: 07/15/22 Reason For Visit: MDD Recurrent Severe w/Psychotic Features Interim History: Discussed with team. Spoke with pt, says he is not so great today. Per team and pt the ect was uneventful, went okay. Per pt, I feel okay physically. Says he feels depressed and worried in general, unable to say why. Per team, he reported being worried about his being left alone at home. Says Im sleeping pretty good, eating fine. Calls his twice a day every day, which is helpful. Feels safe. No questions or concerns. Mental Status Exam Mental Status Exam Narrative: Patient Appearance: Well Grooomed and Appropriate Patient Orientation: Person, Place and Situation Level of Consciousness: Awake and Appropriate Patient Behavior: Guarded and Cooperative Mood Description: Calm Affect Description: Withdrawn and Constricted Patient Cognition Impaired: Yes Ability to Follow Directions: Good Speech Pattern: Clear Hallucinations: None Delusions: Paranoid Ideation and Ideas of Reference Thought Process: Distracted Thought Content: positive for Circumstantial Judgement: Fair Diagnostics Vital Signs (24Hr): Vital Signs - 24 hr 07/14/22 20:15 07/15/22 06:19 07/15/22 06:21 Temperature 97.7 F 96.1 F L 96.1 F L Pulse Rate 82 70 70 Respiratory Rate 16 18 18 Blood Pressure 134/72 129/65 129/65 Pulse Oximetry 97 99 99 Oxygen Delivery Method Room Air Room Air Oxygen Flow Rate 07/15/22 08:25 07/15/22 08:30 07/15/22 08:35 Temperature 97.5 F Pulse Rate 70 62 64 Respiratory Rate 12 19 18 Blood Pressure 168/80 H 150/77 H 142/78 H Pulse Oximetry 96 98 98 Oxygen Delivery Method Nasal Cannula with ETCO2 Nasal Cannula with ETCO2 Nasal Cannula with ETCO2 Oxygen Flow Rate 2 2 2 07/15/22 08:40 07/15/22 08:55 07/15/22 09:11 Temperature 97.4 F Pulse Rate 64 63 68 Respiratory Rate 19 18 18 Blood Pressure 141/75 H 147/78 H 152/84 H Pulse Oximetry 98 98 97 Oxygen Delivery Method Nasal Cannula with ETCO2 Nasal Cannula with ETCO2 Room Air Oxygen Flow Rate 2 2 BMI result Body Mass Index 30.5 Labs Results: 07/08/22 08:02 07/08/22 08:02 Medications Medications Current Medications Acetaminophen (Acetaminophen 325 Mg Tablet) 650 mg PO Q6H PRN PRN Reason: Headache/Pain Mild Scale (1-3) Last Admin: 07/15/22 09:08 Dose: 650 mg Acetaminophen (Acetaminophen 325 Mg Tablet) 650 mg PO Q6H PRN PRN Reason: arthritis pain Al Hydroxide/Mg Hydroxide (Magnesium Hydrox/Alum Hydrox 30 Ml Oral.Susp) 30 ml PO Q6H PRN PRN Reason: Heartburn/Nausea Aripiprazole (Aripiprazole 10 Mg Tablet) 10 mg PO DAILY [facility] Last Admin: 07/15/22 10:06 Dose: 10 mg Azathioprine (Azathioprine 50 Mg Tablet) 100 mg PO DAILY [facility] Last Admin: 07/15/22 10:05 Dose: 100 mg Carbidopa/Levodopa (Carbidopa/Levodopa 25/100 Tablet) 1 tab PO TID [facility] Last Admin: 07/15/22 15:50 Dose: 1 tab Folic Acid (Folic Acid 1 Mg Tablet) 1 mg PO DAILY [facility] Last Admin: 07/15/22 10:05 Dose: 1 mg [place] Carbonate ([place] Carbonate 300 Mg Tablet) 450 mg PO BEDTIME [facility] Last Admin: 07/14/22 21:00 Dose: Not Given Loperamide HCl (Loperamide Hcl 2 Mg Capsule) 2 mg PO Q6H PRN PRN Reason: Diarrhea Last Admin: 07/15/22 15:54 Dose: 2 mg Magnesium Hydroxide (Milk Of Magnesia 30 Ml Oral.Susp) 30 ml PO DAILY PRN PRN Reason: Constipation Oxybutynin Chloride (Oxybutynin Chloride Er 5 Mg Tab.Er.24) 10 mg PO DAILY [facility] Last Admin: 07/15/22 10:06 Dose: 10 mg Primidone (Primidone 50 Mg Tablet) 125 mg PO DAILY [facility] Last Admin: 07/15/22 10:04 Dose: 125 mg Quetiapine Fumarate (Quetiapine Fumarate 25 Mg Tablet) 12.5 mg PO BEDTIME PRN PRN Reason: Insomnia Last Admin: 07/12/22 20:24 Dose: 12.5 mg Trazodone HCl (Trazodone Hcl 50 Mg Tablet) 50 mg PO BEDTIME PRN PRN Reason: Insomnia Last Admin: 07/11/22 21:38 Dose: 50 mg Trazodone HCl (Trazodone Hcl 100 Mg Tablet) 100 mg PO BEDTIME [facility] Last Admin: 07/14/22 20:52 Dose: 100 mg Venlafaxine HCl (Venlafaxine Hcl Er 150 Mg Cap.Er.24h) 150 mg PO DAILY [facility] Last Admin: 07/15/22 10:04 Dose: 150 mg Allergies Allergies Allergy/AdvReac Type Severity Reaction Status Date / Time codeine Allergy Intermediate Rash Verified 07/07/22 14:40 Assessment & Plan Assessment & Plan (1) Routine medical exam: Status: Acute Code(s): Z00.00 - Encounter for general adult medical examination without abnormal findings Plan 72-year-old male with history of Crohn's disease s/p partial small bowel were stuck carr, osteoarthritis of multiple joints, hyperlipidemia, hypothyroidism, vitamin-B12 deficiency, prediabetes, and parkinsonian like tremor on Sinemet admitted to Psychiatry after being transferred from the [facility] following suicide attempt with carbon monoxide poisoning, for ECT, with consult placed to Medicine for H&P and ECT evaluation. #Depression/Suicide attempt with CO poisoning -Plan per psychiatry -ECT evaluation: There is no medical contraindication inhibiting patient undergoing ECT. Cardiac Pre-Op risk 0. #Hypothyroidism -Check TSH with reflex free T4 -Not on levothyroxine at home, ?subclinical hypothyroidism -Initiate levothyroxine if free T4 levels deficient #Vitamin B12 deficiency -Vitamin b12/folate levels pending -Replete as indicated #Parkinsonism- tremor -Continue sinemet #Osteoarthritis -No NSAIDs with Crohns disease- naproxen dc'd -Tylenol 650mg q6h prn #HLD -lipid panel pending -Consider statin if LDL >130 #crohns disease- stable without exacerbation -Continue azathioprine -Immodium prn for diarrhea #Prediabetes -A1c ordered Thank you for allowing me to participate in this consult. Signing off at this time. Please do not hesitate to call for further questions. Psychiatry Plan 1. ECT for Monday. We will do Wednesdays and Fridays as per protocol. 2. Lower Effexor up to 150 mg daily. 3. PT consult for the ambulation . 4. Increase Trazodone at hs. 5. We will lower Abilify to 10 mg daily starting tomorrow July 13. We will keep on this dose for the next 3 days and later we will go to 5 and then discontinue. We will discuss the possibility of adding Seroquel XR as augmentation for depression. 6. Lower Effexor XR to 150 mg po daily on Jul 12. We have discussed the possibility do changed to tree cyclic antidepressants since he has depression with melancholia. 07/14/22 Pt seen mood depressed flat denies si remains with PI I spent minutes with the patient and/or on the patient floor today, greater than?50% of which was spent counseling/coordinating care. Patient educated on: therapeutic strategies Reason for contiued inpatient stay Substantial Risk for: harm to self, rapid decompensation and med/psych decompensation Time Spent With Patient Time: Total time managing care of this patient today ____ minutes.
[2022-07-15] MEDS: Lithium Carbonate 300 MG TABLET 450 MG PO (20:41)
[2022-07-15] MEDS: traZODone HCL 100 MG TABLET PO (20:41)
[2022-07-16 06:00] VITALS: BP 131/66; PULSE 81; RESP 81; TEMP 530.5; TEMP 987; O2SAT 98
[2022-07-16] MEDS: Folic Acid 1 MG TABLET PO (09:15)
[2022-07-16] MEDS: Primidone 50 MG TABLET 125 MG PO (09:15)
[2022-07-16] MEDS: Carbidopa/Levodopa 25/100 TABLET 1 TAB PO ×3 (09:15→20:26)
[2022-07-16] MEDS: ARIPiprazole 10 MG TABLET PO (09:16)
[2022-07-16] MEDS: Venlafaxine HCl ER 150 MG CAP.ER.24H PO (09:16)
[2022-07-16] MEDS: azaTHIOprine 50 MG TABLET 100 MG PO (09:16)
[2022-07-16] MEDS: Loperamide HCl 2 MG CAPSULE PO ×2 (11:43→21:48)
--- NOTE | 2022-07-16 17:03 | P.PNPSI_ITS ---
Subjective Subjective Date of Service: 07/16/22 Reason For Visit: MDD Recurrent Severe w/Psychotic Features Interim History: pt, says he is not so great today. pt tolerating ECT treatments; pt reports feeling OKAY. Says he feels depressed and worried in general, unable to say why. Reports sleeping well and eating fine. He continues to call his twice a day every day, which is helpful. Feels safe on unit. No questions or concerns. Medication Compliance: Yes Side effects from medications: No Attending Groups: No Review of Systems Acute medical concerns: No Review of Systems Review of Systems General: No fevers, malaise, unintentional weight loss HEENT: No blurred vision, diplopia. No sore throat, nasal congestion, rhinorrhea, sinus pain, ear pain Cardiovascular: No chest pain, palpitations, or leg edema Respiratory: No shortness of breath, wheezing, cough GI: No abdominal pain, nausea, vomiting, diarrhea, constipation, melena, hematochezia : No dysuria, hematuria, increased urinary frequency, decreased urinary output MSK: No myalgia, back pain Neuro: No headaches, weakness, paresthesias Psych: +depression Skin: No rashes or lesions Constitutional: Reports weight gain Eyes: Reports as per HPI Reports system reviewed and no additional complaints, except as documented and Reports disequilibrium Cardiovascular: Reports no additional cardiovascular complaints Respiratory: Reports no additional respiratory complaints Gastrointestinal: Reports as per HPI, Reports bloating and Reports constipation Genitourinary: Reports no additional male genitourinary complaints Musculoskeletal: Reports no additional musculoskeletal complaints Skin/Breast: Reports system reviewed and no additional complaints, except as docu Reports as per HPI, Reports behavioral changes, Reports confusion, Reports memory loss, Reports restless legs, Reports tremor(s) and Reports disequilibrium Psychiatric: Reports behavioral changes, Reports confusion, Reports depression, Reports hopelessness and Reports memory loss Endocrine: Reports no additional endocrine complaints Hematologic/Lymphatic: Reports no additional hematologic/lymphatic complaints Allergic/Immunologic: Reports no additional allergic/immunologic complaints Mental Status Exam Mental Status Exam Narrative: Patient Appearance: Well Grooomed and Appropriate Patient Orientation: Person, Place and Situation Level of Consciousness: Awake and Appropriate Patient Behavior: Guarded and Cooperative Mood Description: Calm Affect Description: Withdrawn and Constricted Patient Cognition Impaired: Yes Ability to Follow Directions: Good Speech Pattern: Clear Hallucinations: None Delusions: Paranoid Ideation and Ideas of Reference Thought Process: Distracted Thought Content: positive for Circumstantial Judgement: Fair Patient Appearance: Well Grooomed and Appropriate Patient Orientation: Person, Place and Situation Level of Consciousness: Awake and Appropriate Patient Behavior: Guarded and Cooperative Mood Description: Calm Affect Description: Withdrawn and Constricted Patient Cognition Impaired: Yes Ability to Follow Directions: Good Speech Pattern: Clear Diagnostics Vital Signs (24Hr): Vital Signs - 24 hr 07/15/22 18:00 07/16/22 06:00 Temperature 96.7 F L 987 F H Pulse Rate 102 H 81 Respiratory Rate 20 81 H Blood Pressure 113/56 L 131/66 Pulse Oximetry 96 98 Oxygen Delivery Method Room Air Room Air BMI result Body Mass Index 30.5 Labs Results: 07/08/22 08:02 07/08/22 08:02 Medications Medications Current Medications Acetaminophen (Acetaminophen 325 Mg Tablet) 650 mg PO Q6H PRN PRN Reason: Headache/Pain Mild Scale (1-3) Last Admin: 07/15/22 09:08 Dose: 650 mg Acetaminophen (Acetaminophen 325 Mg Tablet) 650 mg PO Q6H PRN PRN Reason: arthritis pain Al Hydroxide/Mg Hydroxide (Magnesium Hydrox/Alum Hydrox 30 Ml Oral.Susp) 30 ml PO Q6H PRN PRN Reason: Heartburn/Nausea Aripiprazole (Aripiprazole 10 Mg Tablet) 10 mg PO DAILY [facility] Last Admin: 07/16/22 09:16 Dose: 10 mg Azathioprine (Azathioprine 50 Mg Tablet) 100 mg PO DAILY [facility] Last Admin: 07/16/22 09:16 Dose: 100 mg Carbidopa/Levodopa (Carbidopa/Levodopa 25/100 Tablet) 1 tab PO TID [facility] Last Admin: 07/16/22 14:30 Dose: 1 tab Folic Acid (Folic Acid 1 Mg Tablet) 1 mg PO DAILY [facility] Last Admin: 07/16/22 09:15 Dose: 1 mg [place] Carbonate ([place] Carbonate 300 Mg Tablet) 450 mg PO BEDTIME [facility] Last Admin: 07/15/22 20:41 Dose: 450 mg Loperamide HCl (Loperamide Hcl 2 Mg Capsule) 2 mg PO Q6H PRN PRN Reason: Diarrhea Last Admin: 07/16/22 11:43 Dose: 2 mg Magnesium Hydroxide (Milk Of Magnesia 30 Ml Oral.Susp) 30 ml PO DAILY PRN PRN Reason: Constipation Oxybutynin Chloride (Oxybutynin Chloride Er 5 Mg Tab.Er.24) 10 mg PO DAILY [facility] Last Admin: 07/16/22 09:15 Dose: 10 mg Primidone (Primidone 50 Mg Tablet) 125 mg PO DAILY [facility] Last Admin: 07/16/22 09:15 Dose: 125 mg Quetiapine Fumarate (Quetiapine Fumarate 25 Mg Tablet) 12.5 mg PO BEDTIME PRN PRN Reason: Insomnia Last Admin: 07/12/22 20:24 Dose: 12.5 mg Trazodone HCl (Trazodone Hcl 50 Mg Tablet) 50 mg PO BEDTIME PRN PRN Reason: Insomnia Last Admin: 07/11/22 21:38 Dose: 50 mg Trazodone HCl (Trazodone Hcl 100 Mg Tablet) 100 mg PO BEDTIME [facility] Last Admin: 07/15/22 20:41 Dose: 100 mg Venlafaxine HCl (Venlafaxine Hcl Er 150 Mg Cap.Er.24h) 150 mg PO DAILY [facility] Last Admin: 07/16/22 09:16 Dose: 150 mg Allergies Allergies Allergy/AdvReac Type Severity Reaction Status Date / Time codeine Allergy Intermediate Rash Verified 07/07/22 14:40 Assessment & Plan Assessment & Plan (1) Routine medical exam: Status: Acute Code(s): Z00.00 - Encounter for general adult medical examination without abnormal findings Plan 72-year-old male with history of Crohn's disease s/p partial small bowel were stuck carr, osteoarthritis of multiple joints, hyperlipidemia, hypothyroidism, vitamin-B12 deficiency, prediabetes, and parkinsonian like tremor on Sinemet admitted to Psychiatry after being transferred from the [facility] following suicide attempt with carbon monoxide poisoning, for ECT, with consult placed to Medicine for H&P and ECT evaluation. #Depression/Suicide attempt with CO poisoning -Plan per psychiatry -ECT evaluation: There is no medical contraindication inhibiting patient undergoing ECT. Cardiac Pre-Op risk 0. #Hypothyroidism -Check TSH with reflex free T4 -Not on levothyroxine at home, ?subclinical hypothyroidism -Initiate levothyroxine if free T4 levels deficient #Vitamin B12 deficiency -Vitamin b12/folate levels pending -Replete as indicated #Parkinsonism- tremor -Continue sinemet #Osteoarthritis -No NSAIDs with Crohns disease- naproxen dc'd -Tylenol 650mg q6h prn #HLD -lipid panel pending -Consider statin if LDL >130 #crohns disease- stable without exacerbation -Continue azathioprine -Immodium prn for diarrhea #Prediabetes -A1c ordered Thank you for allowing me to participate in this consult. Signing off at this time. Please do not hesitate to call for further questions. Psychiatry Plan 1. ECT for Monday. We will do Wednesdays and Fridays as per protocol. 2. Lower Effexor up to 150 mg daily. 3. PT consult for the ambulation . 4. Increase Trazodone at hs. 5. We will lower Abilify to 10 mg daily starting tomorrow July 13. We will keep on this dose for the next 3 days and later we will go to 5 and then discontinue. We will discuss the possibility of adding Seroquel XR as entation for depression. 6. Lower Effexor XR to 150 mg po daily on Jul 12. We have discussed the po ssibility do changed to tree cyclic antidepressants since he has depression with melancholia. 07/14/22 Pt seen mood depressed flat denies si remains with PI 07/16/ continue current treatmetn plan I spent minutes with the patient and/or on the patient floor today, gre ater than?50% of which was spent counseling/coordinating care. Reason for contiued inpatient stay Substantial Risk for: harm to self, inability to function and rapid decompensation Time Spent With Patient Time: Total time managing care of this patient today ____ minutes.
[2022-07-16 18:00] VITALS: BP 132/72; PULSE 76; RESP 16; TEMP 36.6; O2SAT 97
[2022-07-16] MEDS: Lithium Carbonate 300 MG TABLET 450 MG PO (20:24)
[2022-07-16] MEDS: traZODone HCL 100 MG TABLET PO (20:25)
[2022-07-17 07:50] VITALS: BP 121/73; PULSE 76; RESP 16; TEMP 36.3; O2SAT 96
[2022-07-17] MEDS: Folic Acid 1 MG TABLET PO (08:53)
[2022-07-17] MEDS: ARIPiprazole 10 MG TABLET PO (08:53)
[2022-07-17] MEDS: Primidone 50 MG TABLET 125 MG PO (08:53)
[2022-07-17] MEDS: Venlafaxine HCl ER 150 MG CAP.ER.24H PO (08:53)
[2022-07-17] MEDS: Carbidopa/Levodopa 25/100 TABLET 1 TAB PO ×3 (08:53→21:05)
[2022-07-17] MEDS: azaTHIOprine 50 MG TABLET 100 MG PO (08:54)
--- NOTE | 2022-07-17 12:40 | HO.ECTPROC ---
ECT Procedure Note Diagnosis/Treatment Date of Service: 07/18/22 Time: Total time managing care of this patient today ____ minutes. ECT Settings Device: THYMATRON DGx
--- NOTE | 2022-07-17 14:32 | HO.PSYCHPN ---
Subjective Subjective Date of Service: 07/17/22 Reason For Visit: MDD Recurrent Severe w/Psychotic Features Interim History: Discussed with team, chart reviewed, met with pt. Ordered NPO after midnight for ECT scheduled for 07/18/22. Pt reports he is feeling a bit better, however, has a mild exacerbation of Chron's sx today. Discussed Imuran, Immodium-pt reporting efficacy. Pt reports these agents are covering current sx. Discussed having more ECT this week and states I am hoping it will work very well. Medication Compliance: Yes Side effects from medications: No Attending Groups: Yes Review of Systems Acute medical concerns: No Medical Review of Systems: unchanged Mental Status Exam Mental Status Exam Patient Appearance: Fatigued Patient Orientation: Person, Place and Situation Level of Consciousness: Alert Patient Behavior: Appropriate, Talkative, Cooperative and Good Eye Contact Mood Description: Flat Affect Description: Flat Patient Cognition Impaired: No Ability to Follow Directions: Fair Speech Pattern: Spontaneous Speech and Long Pauses Memory Description: Episodic Impaired Hallucinations: None Delusions: Not Present Thought Process: Distracted, Rumination and Confusion Thought Content: positive for [place] and positive for Suicidal Ideation (denies) Depressive Symptoms: Isolating-Friends/Family and Thoughts of /Suicide (denies) Judgement: Poor Diagnostics Vital Signs (24Hr): Vital Signs - 24 hr 07/16/22 18:00 07/17/22 07:50 Temperature 98 F 97.4 F Pulse Rate 76 76 Respiratory Rate 16 16 Blood Pressure 132/72 121/73 Pulse Oximetry 97 96 Oxygen Delivery Method Room Air Room Air BMI result Body Mass Index 30.5 Labs Results: 07/08/22 08:02 07/08/22 08:02 Medications Medications Current Medications Acetaminophen (Acetaminophen 325 Mg Tablet) 650 mg PO Q6H PRN PRN Reason: Headache/Pain Mild Scale (1-3) Last Admin: 07/15/22 09:08 Dose: 650 mg Acetaminophen (Acetaminophen 325 Mg Tablet) 650 mg PO Q6H PRN PRN Reason: arthritis pain Al Hydroxide/Mg Hydroxide (Magnesium Hydrox/Alum Hydrox 30 Ml Oral.Susp) 30 ml PO Q6H PRN PRN Reason: Heartburn/Nausea Aripiprazole (Aripiprazole 10 Mg Tablet) 10 mg PO DAILY KATHRYN Last Admin: 07/17/22 08:53 Dose: 10 mg Azathioprine (Azathioprine 50 Mg Tablet) 100 mg PO DAILY KATHRYN Last Admin: 07/17/22 08:54 Dose: 100 mg Carbidopa/Levodopa (Carbidopa/Levodopa 25/100 Tablet) 1 tab PO TID [facility] Last Admin: 07/17/22 08:53 Dose: 1 tab Folic Acid (Folic Acid 1 Mg Tablet) 1 mg PO DAILY [facility] Last Admin: 07/17/22 08:53 Dose: 1 mg [place] Carbonate ([place] Carbonate 300 Mg Tablet) 450 mg PO BEDTIME [facility] Last Admin: 07/16/22 20:24 Dose: 450 mg Loperamide HCl (Loperamide Hcl 2 Mg Capsule) 2 mg PO Q6H PRN PRN Reason: Diarrhea Last Admin: 07/16/22 21:48 Dose: 2 mg Magnesium Hydroxide (Milk Of Magnesia 30 Ml Oral.Susp) 30 ml PO DAILY PRN PRN Reason: Constipation Oxybutynin Chloride (Oxybutynin Chloride Er 5 Mg Tab.Er.24) 10 mg PO DAILY [facility] Last Admin: 07/17/22 08:53 Dose: 10 mg Primidone (Primidone 50 Mg Tablet) 125 mg PO DAILY [facility] Last Admin: 07/17/22 08:53 Dose: 125 mg Quetiapine Fumarate (Quetiapine Fumarate 25 Mg Tablet) 12.5 mg PO BEDTIME PRN PRN Reason: Insomnia Last Admin: 07/12/22 20:24 Dose: 12.5 mg Trazodone HCl (Trazodone Hcl 50 Mg Tablet) 50 mg PO BEDTIME PRN PRN Reason: Insomnia Last Admin: 07/11/22 21:38 Dose: 50 mg Trazodone HCl (Trazodone Hcl 100 Mg Tablet) 100 mg PO BEDTIME [facility] Last Admin: 07/16/22 20:25 Dose: 100 mg Venlafaxine HCl (Venlafaxine Hcl Er 150 Mg Cap.Er.24h) 150 mg PO DAILY [facility] Last Admin: 07/17/22 08:53 Dose: 150 mg Allergies Allergies Allergy/AdvReac Type Severity Reaction Status Date / Time codeine Allergy Intermediate Rash Verified 07/07/22 14:40 Assessment & Plan Assessment & Plan (1) Routine medical exam: Status: Acute Code(s): Z00.00 - Encounter for general adult medical examination without abnormal findings Plan 72-year-old male with history of Crohn's disease s/p partial small bowel were stuck carr, osteoarthritis of multiple joints, hyperlipidemia, hypothyroidism, vitamin-B12 deficiency, prediabetes, and parkinsonian like tremor on Sinemet admitted to Psychiatry after being transferred from the [facility] following suicide attempt with carbon monoxide poisoning, for ECT, with consult placed to Medicine for H&P and ECT evaluation. #Depression/Suicide attempt with CO poisoning -Plan per psychiatry -ECT evaluation: There is no medical contraindication inhibiting patient undergoing ECT. Cardiac Pre-Op risk 0. #Hypothyroidism -Check TSH with reflex free T4 -Not on levothyroxine at home, ?subclinical hypothyroidism -Initiate levothyroxine if free T4 levels deficient #Vitamin B12 deficiency -Vitamin b12/folate levels pending -Replete as indicated #Parkinsonism- tremor -Continue sinemet #Osteoarthritis -No NSAIDs with Crohns disease- naproxen dc'd -Tylenol 650mg q6h prn #HLD -lipid panel pending -Consider statin if LDL >130 #crohns disease- stable without exacerbation -Continue azathioprine -Immodium prn for diarrhea #Prediabetes -A1c ordered Thank you for allowing me to participate in this consult. Signing off at this time. Please do not hesitate to call for further questions. Psychiatry Plan 1. ECT for Monday. We will do Wednesdays and Fridays as per protocol. 2. Lower Effexor up to 150 mg daily. 3. PT consult for the ambulation . 4. Increase Trazodone at hs. 5. We will lower Abilify to 10 mg daily starting tomorrow July 13. We will keep on this dose for the next 3 days and later we will go to 5 and then discontinue. We will discuss the possibility of adding Seroquel XR as augmentation for depression. 6. Lower Effexor XR to 150 mg po daily on Jul 12. We have discussed the possibility do changed to tree cyclic antidepressants since he has depression with melancholia. 07/14/22 Pt seen mood depressed flat denies si remains with PI 07/16/ continue current treatmetn plan 07/17/22: Abilify decrease to 5 mg daily per plan. ECT 07/18/22. I spent minutes with the patient and/or on the patient floor today, greater than?50% of which was spent counseling/coordinating care. Patient educated on: therapeutic strategies Informed Consent: further education needed Reason for contiued inpatient stay Substantial Risk for: harm to self and rapid decompensation Time Spent With Patient Time: Total time managing care of this patient today ___20_ minutes.
[2022-07-17] MEDS: Loperamide HCl 2 MG CAPSULE PO ×2 (17:08→22:55)
[2022-07-17 18:00] VITALS: BP 114/69; PULSE 84; RESP 18; TEMP 37.3; O2SAT 98
[2022-07-17] MEDS: traZODone HCL 100 MG TABLET PO (21:05)
[2022-07-18] VITALS (10 sets, daily range): BP systolic 104–181; BP diastolic 55–81; PULSE 65–87; RESP 13–18; TEMP 36.2–37.3; O2SAT 93–97
--- NOTE | 2022-07-18 07:02 | P.CONAN_ITS ---
[facility] Active Problems Active Problems: All Active Problems (Updated 07/07/22 @ 17:49 by TRUE Lebron) Routine medical exam (Acute) Major depressive disorder, recurrent episode with mood-congruent psychotic features (Acute) Hypothyroidism (Acute) Vitamin B12 deficiency (Acute) Parkinsonian features (Acute) Crohn's disease (Acute) Past Medical History Medical History Crohn's disease Hypothyroidism Major depressive disorder, recurrent episode with mood-congruent psychotic features Osteoarthritis Parkinsonian features Vitamin B12 deficiency Functional capacity: independent ambulation Family History Family History Father Stomach cancer Mother Dementia Family history of problems with anesthesia: No Surgical History Surgical History S/P small bowel resection History of Problems with Anesthesia: No Social History Social History Household Members: Spouse Housing: House Do you presently have visiting nurse or other home services: No Patient Tobacco Use Status: Never used Tobacco Use of substances other than those prescribed or required for medical reasons: No Currently Displaying Signs/Symptoms of Drug Intoxication Withdrawal: No Any prior treatment program specific to substance use: No Have you been hit, kicked, punched, or otherwise hurt by someone within the past year? If so, by whom?: No Do you feel safe in your current relationship?: No Is there a partner from a previous relationship who is making you feel unsafe now?: No Are you made to feel afraid or neglected: No Yazidi Healthcare Practices: Sabianist Are you DNR?: No Advance Directives: No Do you have thoughts of harming others: None Do you have a plan to hurt others: No Plan Recently lost weight without trying: No Nutrition Risks: No Nutritional Risk Poor oral hygiene: No service: Yes Sexual orientation: Straight/Heterosexual Meds Allergies Allergy/AdvReac Type Severity Reaction Status Date / Time codeine Allergy Intermediate Rash Verified 07/07/22 14:40 Active Medications: Current Medications Acetaminophen (Acetaminophen 325 Mg Tablet) 650 mg PO Q6H PRN PRN Reason: Headache/Pain Mild Scale (1-3) Last Admin: 07/15/22 09:08 Dose: 650 mg Acetaminophen (Acetaminophen 325 Mg Tablet) 650 mg PO Q6H PRN PRN Reason: arthritis pain Al Hydroxide/Mg Hydroxide (Magnesium Hydrox/Alum Hydrox 30 Ml Oral.Susp) 30 ml PO Q6H PRN PRN Reason: Heartburn/Nausea Aripiprazole (Aripiprazole 5 Mg Tablet) 5 mg PO DAILY [facility] Azathioprine (Azathioprine 50 Mg Tablet) 100 mg PO DAILY [facility] Last Admin: 07/17/22 08:54 Dose: 100 mg Carbidopa/Levodopa (Carbidopa/Levodopa 25/100 Tablet) 1 tab PO TID [facility] Last Admin: 07/17/22 21:05 Dose: 1 tab Folic Acid (Folic Acid 1 Mg Tablet) 1 mg PO DAILY [facility] Last Admin: 07/17/22 08:53 Dose: 1 mg Lactated Ringer's (Lr) 1,000 mls @ 50 mls/hr IVCONT .Q20H KATHRYN Lactated Ringer's (Lr) 1,000 mls @ 50 mls/hr IVCONT .Q20H [facility] [place] Carbonate ([place] Carbonate 300 Mg Tablet) 450 mg PO BEDTIME [facility] Last Admin: 07/17/22 22:50 Dose: Not Given Loperamide HCl (Loperamide Hcl 2 Mg Capsule) 2 mg PO Q6H PRN PRN Reason: Diarrhea Last Admin: 07/17/22 22:55 Dose: 2 mg Magnesium Hydroxide (Milk Of Magnesia 30 Ml Oral.Susp) 30 ml PO DAILY PRN PRN Reason: Constipation Oxybutynin Chloride (Oxybutynin Chloride Er 5 Mg Tab.Er.24) 10 mg PO DAILY [facility] Last Admin: 07/17/22 08:53 Dose: 10 mg Primidone (Primidone 50 Mg Tablet) 100 mg PO DAILY [facility] Quetiapine Fumarate (Quetiapine Fumarate 25 Mg Tablet) 25 mg PO BEDTIME PRN PRN Reason: Insomnia Trazodone HCl (Trazodone Hcl 50 Mg Tablet) 50 mg PO BEDTIME PRN PRN Reason: Insomnia Last Admin: 07/11/22 21:38 Dose: 50 mg Trazodone HCl (Trazodone Hcl 100 Mg Tablet) 100 mg PO BEDTIME [facility] Last Admin: 07/17/22 21:05 Dose: 100 mg Venlafaxine HCl (Venlafaxine Hcl Er 150 Mg Cap.Er.24h) 150 mg PO DAILY [facility] Last Admin: 07/17/22 08:53 Dose: 150 mg Exam Exam Date and Time: July 18, 2022 0702 Height,Weight and Vital Signs: Height 5 ft 8 in Weight 91.172 kg Last Vital Signs Temp 98.6 F 07/18/22 06:47 Pulse 65 07/18/22 06:47 Resp 18 07/18/22 06:47 BP 126/72 07/18/22 06:47 Pulse Ox 94 07/18/22 06:47 O2 Del Method 07/18/22 06:47 O2 Flow Rate 2 07/15/22 08:55 Pertinent Lab Results Pertinent Lab Results: Laboratory Tests 07/07/22 07/08/22 07/08/22 15:02 08:02 08:02 WBC 5.4 RBC 4.11 L Hgb 13.8 L Hct 40.8 L MCV 99.3 H MCH 33.6 H MCHC 33.8 RDW 12.4 Plt Count 236 MPV 9.5 Immature Gran % (Auto) 0.4 Neut % (Auto) 65.0 Lymph % (Auto) 22.9 [place] % (Auto) 8.0 Eos % (Auto) 3.0 Baso % (Auto) 0.7 Lymph # (Auto) 1.2 [place] # (Auto) 0.4 Eos # (Auto) 0.2 Baso # (Auto) 0.0 Abs Immat Gran (auto) 0.02 Absolute Neuts (auto) 3.5 Absolute Nucleated RBC 0.000 Nucleated RBC % (auto) 0.0 Sodium 137 Potassium 4.6 Chloride 105 Carbon Dioxide 26 Anion Gap 11 L BUN 12 Creatinine 0.88 Estim Creat Clear Calc TNP Estimated GFR > 60 Fasting Glucose 107 H Estimat Average Glucose Hemoglobin A1c % Calcium 9.1 Total Bilirubin 0.4 AST 14 ALT 13 Alkaline Phosphatase 81 Total Protein 6.5 Albumin 4.1 Triglycerides 181 Cholesterol 168 LDL Cholesterol, Calc 98 HDL Cholesterol 34 Vitamin B12 Folate TSH 4.21 H Free T4 0.96 [place] 0.86 07/08/22 07/08/22 08:02 08:02 WBC RBC Hgb Hct MCV MCH MCHC RDW Plt Count MPV Immature Gran % (Auto) Neut % (Auto) Lymph % (Auto) [place] % (Auto) Eos % (Auto) Baso % (Auto) Lymph # (Auto) [place] # (Auto) Eos # (Auto) Baso # (Auto) Abs Immat Gran (auto) Absolute Neuts (auto) Absolute Nucleated RBC Nucleated RBC % (auto) Sodium Potassium Chloride Carbon Dioxide Anion Gap BUN Creatinine Estim Creat Clear Calc Estimated GFR Fasting Glucose Estimat Average Glucose 108 Hemoglobin A1c % 5.4 Calcium Total Bilirubin AST ALT Alkaline Phosphatase Total Protein Albumin Triglycerides Cholesterol LDL Cholesterol, Calc HDL Cholesterol Vitamin B12 746 Folate 18.9 TSH Free T4 [place] Airway Mallampati Class: II (Impants lateral) TM Dist: >3cm Neck ROM: Full Heart: rrr Lungs: cta Assessment and Plan Assessment Anesthesia Assessment: Anesthesia Plan Discussed and Chart Reviewed Final Anesthetic Review Family History of Problems with Anesthesia: No History of Problems with Anesthesia: No ASA Class: III Final Preanesthetic Review: No Changes in Pt Med Stat, Meds/Allgs Chart Reviewed and Consent Obtained/Reviewed Patient Risk: Intermediate Procedure Risk: Intermediate Anesthetic Plan Anesthetic Plan: GA Disposition: Standard PACU
--- NOTE | 2022-07-18 07:34 | MHC.SHP ---
Pre-Procedural Eval Section A Date of Service: 07/18/22 The patient is an INPATIENT: Yes Changes since office visit: Yes Changes in Medication and Yes Patient answered all questions; No Cold of Flu in the past 2 weeks and No New Medical Problems The History & Physical has been completed within 30 days and I have reviewed it.: Yes Section B Chief Complaint: MDD Recurrent Severe w/Psychotic Features Allergies: Allergies Allergy/AdvReac Type Severity Reaction Status Date / Time codeine Allergy Intermediate Rash Verified 07/07/22 14:40 Plan I have reviewed the history and physical and performed a pertinent physical examination on my patient. No changes have occurred unless specified. Time Spent With Patient Time: Total time managing care of this patient today ____ minutes.
--- NOTE | 2022-07-18 08:09 | HO.ECTPROC ---
ECT Procedure Note Diagnosis/Treatment Date of Service: 07/18/22 Diagnosis: Major Depressive Disorder Previous ECT Date: 07/15/22 Current Treatment Number: 4 Treatment: Series Interval Clinical Notes: pt mood depressed still with PI recent suicide attempt Time: Total time managing care of this patient today ____ minutes. ECT Settings Device: THYMATRON DGx Electrode Placement: Bitemporal Program/Pulse Width: 0.50 Energy Percent: 100 Seizure Duration By EEG (in seconds): 14 Medications Administration General Anesthetic: Etomidate (14) Muscle Relaxant: Succinylcholine (100) Ancillary Medications Analgesics: Torodol - Pre ECT Anti-emetics: Zofran - Pre ECT Airway Management Airway Management: Bag Mask Ventilation Treatment Recommendations Electrode Placement: Bitemporal Program/Pulse Width: 0.50 Energy Percent: 100 Notes: inc succ 120 mg lower etomidate to 12 Pt Tolerated Procedure w/o Issue: Yes
[2022-07-18] MEDS: Venlafaxine HCl ER 150 MG CAP.ER.24H PO (12:02)
[2022-07-18] MEDS: Primidone 50 MG TABLET 100 MG PO (12:02)
[2022-07-18] MEDS: azaTHIOprine 50 MG TABLET 100 MG PO (12:02)
[2022-07-18] MEDS: Carbidopa/Levodopa 25/100 TABLET 1 TAB PO ×3 (12:02→21:28)
[2022-07-18] MEDS: ARIPiprazole 5 MG TABLET PO (12:03)
[2022-07-18] MEDS: Folic Acid 1 MG TABLET PO (12:03)
[2022-07-18] MEDS: Acetaminophen 325 MG TABLET 650 MG PO (12:07)
[2022-07-18] MEDS: Loperamide HCl 2 MG CAPSULE PO (15:55)
[2022-07-18] MEDS: Lithium Carbonate 300 MG TABLET 450 MG PO (21:28)
[2022-07-18] MEDS: traZODone HCL 100 MG TABLET PO (21:29)
--- NOTE | 2022-07-18 23:11 | HO.PSYCHPN ---
Subjective Subjective Date of Service: 07/18/22 Reason For Visit: MDD Recurrent Severe w/Psychotic Features Subjective Notes: Conditional Voluntary Interim History: pt tolerating ect some harding affect tolerating ect still has paranoid ideation re computer Medication Compliance: Yes Review of Systems Acute medical concerns: No Mental Status Exam Mental Status Exam Patient Appearance: Fatigued and Rigid Patient Orientation: Person, Place and Situation Level of Consciousness: Alert Patient Behavior: Appropriate, Talkative, Cooperative and Good Eye Contact Mood Description: Flat Affect Description: Flat Patient Cognition Impaired: No Ability to Follow Directions: Fair Speech Pattern: Spontaneous Speech and Long Pauses Memory Description: Episodic Impaired Hallucinations: None Delusions: Not Present Thought Process: Distracted, Rumination and Confusion Thought Content: positive for [place] and positive for Suicidal Ideation (denies) Depressive Symptoms: Isolating-Friends/Family and Thoughts of /Suicide (denies) Judgement: Poor Diagnostics Vital Signs (24Hr): Vital Signs - 24 hr 07/18/22 05:41 07/18/22 05:42 07/18/22 06:47 Temperature 97.9 F 97.9 F 98.6 F Pulse Rate 68 68 65 Respiratory Rate 16 16 18 Blood Pressure 128/72 128/72 126/72 Pulse Oximetry 97 97 94 Oxygen Delivery Method Room Air Room Air Oxygen Flow Rate 07/18/22 08:12 07/18/22 08:17 07/18/22 08:22 Temperature 99.1 F Pulse Rate 66 86 87 Respiratory Rate 15 13 15 Blood Pressure 181/81 H 140/80 H 140/80 H Pulse Oximetry 96 93 93 Oxygen Delivery Method Nasal Cannula Blow By Nasal Cannula Nasal Cannula Oxygen Flow Rate 3 3 07/18/22 08:27 07/18/22 08:42 07/18/22 08:57 Temperature 98.5 F Pulse Rate 84 78 76 Respiratory Rate 14 16 16 Blood Pressure 138/66 136/62 136/62 Pulse Oximetry 93 95 95 Oxygen Delivery Method Nasal Cannula Room Air Room Air Oxygen Flow Rate 2 07/18/22 18:00 Temperature 97.2 F Pulse Rate 70 Respiratory Rate 16 Blood Pressure 104/55 L Pulse Oximetry 96 Oxygen Delivery Method Room Air Oxygen Flow Rate BMI result Body Mass Index 30.5 Labs Results: 07/08/22 08:02 07/08/22 08:02 Medications Medications Current Medications Acetaminophen (Acetaminophen 325 Mg Tablet) 650 mg PO Q6H PRN PRN Reason: Headache/Pain Mild Scale (1-3) Last Admin: 07/18/22 12:07 Dose: 650 mg Al Hydroxide/Mg Hydroxide (Magnesium Hydrox/Alum Hydrox 30 Ml Oral.Susp) 30 ml PO Q6H PRN PRN Reason: Heartburn/Nausea Aripiprazole (Aripiprazole 5 Mg Tablet) 5 mg PO DAILY [facility] Last Admin: 07/18/22 12:03 Dose: 5 mg Azathioprine (Azathioprine 50 Mg Tablet) 100 mg PO DAILY [facility] Last Admin: 07/18/22 12:02 Dose: 100 mg Carbidopa/Levodopa (Carbidopa/Levodopa 25/100 Tablet) 1 tab PO TID [facility] Last Admin: 07/18/22 21:28 Dose: 1 tab Folic Acid (Folic Acid 1 Mg Tablet) 1 mg PO DAILY [facility] Last Admin: 07/18/22 12:03 Dose: 1 mg [place] Carbonate ([place] Carbonate 300 Mg Tablet) 450 mg PO BEDTIME [facility] Last Admin: 07/18/22 21:28 Dose: 450 mg Loperamide HCl (Loperamide Hcl 2 Mg Capsule) 2 mg PO Q6H PRN PRN Reason: Diarrhea Last Admin: 07/18/22 15:55 Dose: 2 mg Magnesium Hydroxide (Milk Of Magnesia 30 Ml Oral.Susp) 30 ml PO DAILY PRN PRN Reason: Constipation Oxybutynin Chloride (Oxybutynin Chloride Er 5 Mg Tab.Er.24) 10 mg PO DAILY [facility] Last Admin: 07/18/22 12:02 Dose: 10 mg Primidone (Primidone 50 Mg Tablet) 100 mg PO DAILY [facility] Last Admin: 07/18/22 12:02 Dose: 100 mg Quetiapine Fumarate (Quetiapine Fumarate 25 Mg Tablet) 25 mg PO BEDTIME PRN PRN Reason: Insomnia Trazodone HCl (Trazodone Hcl 50 Mg Tablet) 50 mg PO BEDTIME PRN PRN Reason: Insomnia Last Admin: 07/11/22 21:38 Dose: 50 mg Trazodone HCl (Trazodone Hcl 100 Mg Tablet) 100 mg PO BEDTIME [facility] Last Admin: 07/18/22 21:29 Dose: 100 mg Venlafaxine HCl (Venlafaxine Hcl Er 150 Mg Cap.Er.24h) 150 mg PO DAILY [facility] Last Admin: 07/18/22 12:02 Dose: 150 mg Allergies Allergies Allergy/AdvReac Type Severity Reaction Status Date / Time codeine Allergy Intermediate Rash Verified 07/07/22 14:40 Assessment & Plan Assessment & Plan (1) Major depressive disorder, recurrent episode with mood-congruent psychotic features: Status: Acute Code(s): F33.3 - Major depressive disorder, recurrent, severe with psychotic symptoms (2) Parkinsonian features: Status: Acute Code(s): R25.9 - Unspecified abnormal involuntary movements Plan pt with paranoid ideation computer broken into delayed responses I spent minutes with the patient and/or on the patient floor today, greater than?50% of which was spent counseling/coordinating care. Reason for contiued inpatient stay Substantial Risk for: harm to self and med/psych decompensation Time Spent With Patient Time: Total time managing care of this patient today ____ minutes.
[2022-07-19 08:25] VITALS: BP 128/65; PULSE 76; RESP 16; TEMP 36.5; O2SAT 97
[2022-07-19] MEDS: azaTHIOprine 50 MG TABLET 100 MG PO (08:26)
[2022-07-19] MEDS: Folic Acid 1 MG TABLET PO (08:26)
[2022-07-19] MEDS: Primidone 50 MG TABLET 100 MG PO (08:27)
[2022-07-19] MEDS: Venlafaxine HCl ER 150 MG CAP.ER.24H PO (08:28)
[2022-07-19] MEDS: ARIPiprazole 5 MG TABLET PO (08:29)
[2022-07-19] MEDS: Carbidopa/Levodopa 25/100 TABLET 1 TAB PO ×3 (08:29→20:08)
[2022-07-19] MEDS: Loperamide HCl 2 MG CAPSULE PO (11:16)
[2022-07-19] MEDS: Acetaminophen 325 MG TABLET 650 MG PO (11:16)
--- NOTE | 2022-07-19 14:39 | P.PNPSI_ITS ---
Subjective Subjective Date of Service: 07/19/22 Reason For Visit: MDD Recurrent Severe w/Psychotic Features Subjective Notes: Conditional Voluntary Interim History: The patient remains depressed flat with slowed mentation discussed option of clozapine was changed to bitemporal tapering down on Abilify trying to reach patient's outpatient psychiatrist to see what prior trials have may be clozapine candidate question olanzapine Seroquel patient still with paranoid concerns regarding his computer that seems to be willing to his recent suicide attempt family meeting tomorrow Medication Compliance: Yes Side effects from medications: Yes Mental Status Exam Mental Status Exam Patient Appearance: Fatigued and Rigid Patient Orientation: Person, Place and Situation Level of Consciousness: Alert Patient Behavior: Appropriate, Cooperative and Good Eye Contact Behavior Comments: Tremulous Mood Description: Depressed and Flat Affect Description: Blunted and Flat Patient Cognition Impaired: Yes Ability to Follow Directions: Fair Speech Pattern: Spontaneous Speech and Long Pauses Memory Description: Episodic Impaired Hallucinations: None Delusions: Paranoid Ideation Thought Process: Distracted, Rumination and Confusion Thought Content: positive for [place] and positive for Suicidal Ideation (denies) Depressive Symptoms: Isolating-Friends/Family and Thoughts of /Suicide (denies) Judgement: Fair Diagnostics Vital Signs (24Hr): Vital Signs - 24 hr 07/18/22 18:00 07/19/22 08:25 Temperature 97.2 F 97.7 F Pulse Rate 70 76 Respiratory Rate 16 16 Blood Pressure 104/55 L 128/65 Pulse Oximetry 96 97 Oxygen Delivery Method Room Air Room Air BMI result Body Mass Index 30.5 Labs Results: 07/08/22 08:02 07/08/22 08:02 Medications Medications Current Medications Acetaminophen (Acetaminophen 325 Mg Tablet) 650 mg PO Q6H PRN PRN Reason: Headache/Pain Mild Scale (1-3) Last Admin: 07/19/22 11:16 Dose: 650 mg Al Hydroxide/Mg Hydroxide (Magnesium Hydrox/Alum Hydrox 30 Ml Oral.Susp) 30 ml PO Q6H PRN PRN Reason: Heartburn/Nausea Aripiprazole (Aripiprazole 5 Mg Tablet) 5 mg PO DAILY [facility] Last Admin: 07/19/22 08:29 Dose: 5 mg Azathioprine (Azathioprine 50 Mg Tablet) 100 mg PO DAILY [facility] Last Admin: 07/19/22 08:26 Dose: 100 mg Carbidopa/Levodopa (Carbidopa/Levodopa 25/100 Tablet) 1 tab PO TID [facility] Last Admin: 12/20/22 08:29 Dose: 1 tab Folic Acid (Folic Acid 1 Mg Tablet) 1 mg PO DAILY [facility] Last Admin: 07/19/22 08:26 Dose: 1 mg [place] Carbonate ([place] Carbonate 300 Mg Tablet) 450 mg PO BEDTIME [facility] Last Admin: 07/18/22 21:28 Dose: 450 mg Loperamide HCl (Loperamide Hcl 2 Mg Capsule) 2 mg PO Q6H PRN PRN Reason: Diarrhea Last Admin: 07/19/22 11:16 Dose: 2 mg Magnesium Hydroxide (Milk Of Magnesia 30 Ml Oral.Susp) 30 ml PO DAILY PRN PRN Reason: Constipation Oxybutynin Chloride (Oxybutynin Chloride Er 5 Mg Tab.Er.24) 10 mg PO DAILY [facility] Last Admin: 07/19/22 08:27 Dose: 10 mg Primidone (Primidone 50 Mg Tablet) 100 mg PO DAILY [facility] Last Admin: 07/19/22 08:27 Dose: 100 mg Quetiapine Fumarate (Quetiapine Fumarate 25 Mg Tablet) 25 mg PO BEDTIME PRN PRN Reason: Insomnia Trazodone HCl (Trazodone Hcl 50 Mg Tablet) 50 mg PO BEDTIME PRN PRN Reason: Insomnia Last Admin: 07/11/22 21:38 Dose: 50 mg Trazodone HCl (Trazodone Hcl 100 Mg Tablet) 100 mg PO BEDTIME [facility] Last Admin: 07/18/22 21:29 Dose: 100 mg Venlafaxine HCl (Venlafaxine Hcl Er 150 Mg Cap.Er.24h) 150 mg PO DAILY [facility] Last Admin: 07/19/22 08:28 Dose: 150 mg Allergies Allergies Allergy/AdvReac Type Severity Reaction Status Date / Time codeine Allergy Intermediate Rash Verified 07/07/22 14:40 Assessment & Plan Assessment & Plan (1) Major depressive disorder, recurrent episode with mood-congruent psychotic features: Status: Acute Code(s): F33.3 - Major depressive disorder, recurrent, severe with psychotic symptoms (2) Parkinsonian features: Status: Acute Code(s): R25.9 - Unspecified abnormal involuntary movements Plan pt with paranoid ideation computer broken into ongoing paranoid concerns so for not responding to ECT was changed bitemporal for psychotic depression monitor affects of ECT monitor for cognitive side effects try and review imaging from [place] brain imaging call placed to patient's outpatient psychiatrist me with discharge planning coordinating click care clarifying patient's history consider clozapine I spent minutes with the patient and/or on the patient floor today, greater than?50% of which was spent counseling/coordinating care. Patient educated on: diagnosis and medical condition Informed Consent: understands Reason for contiued inpatient stay Substantial Risk for: harm to self Time Spent With Patient Time: Total time managing care of this patient today ____ minutes.
[2022-07-19 20:00] VITALS: BP 125/73; PULSE 76; RESP 18; TEMP 36.5; O2SAT 98
[2022-07-19] MEDS: Lithium Carbonate 300 MG TABLET 450 MG PO (20:08)
[2022-07-19] MEDS: traZODone HCL 100 MG TABLET PO (20:08)
[2022-07-20] VITALS (10 sets, daily range): BP systolic 110–155; BP diastolic 67–88; PULSE 64–86; RESP 12–23; TEMP 36.2–36.7; O2SAT 93–97
--- NOTE | 2022-07-20 06:55 | MHC.SHP ---
Pre-Procedural Eval Section A Date of Service: 07/20/22 The patient is an INPATIENT: Yes Changes since office visit: Yes Changes in Medication and Yes Patient answered all questions; No Cold of Flu in the past 2 weeks and No New Medical Problems The History & Physical has been completed within 30 days and I have reviewed it.: Yes Section B Chief Complaint: MDD Recurrent Severe w/Psychotic Features Allergies: Allergies Allergy/AdvReac Type Severity Reaction Status Date / Time codeine Allergy Intermediate Rash Verified 07/07/22 14:40 Plan I have reviewed the history and physical and performed a pertinent physical examination on my patient. No changes have occurred unless specified. Time Spent With Patient Time: Total time managing care of this patient today ____ minutes.
--- NOTE | 2022-07-20 07:07 | HO.ANESPROP2 ---
[facility] Active Problems Active Problems: All Active Problems (Updated 07/07/22 @ 17:49 by TRUE Lebron) Routine medical exam (Acute) Major depressive disorder, recurrent episode with mood-congruent psychotic features (Acute) Hypothyroidism (Acute) Vitamin B12 deficiency (Acute) Parkinsonian features (Acute) Crohn's disease (Acute) Past Medical History Medical History Crohn's disease Hypothyroidism Major depressive disorder, recurrent episode with mood-congruent psychotic features Osteoarthritis Parkinsonian features Vitamin B12 deficiency Functional capacity: independent ambulation Family History Family History Father Stomach cancer Mother Dementia Family history of problems with anesthesia: No Surgical History Surgical History S/P small bowel resection History of Problems with Anesthesia: No Social History Social History Household Members: Spouse Housing: House Do you presently have visiting nurse or other home services: No Patient Tobacco Use Status: Never used Tobacco Use of substances other than those prescribed or required for medical reasons: No Currently Displaying Signs/Symptoms of Drug Intoxication Withdrawal: No Any prior treatment program specific to substance use: No Have you been hit, kicked, punched, or otherwise hurt by someone within the past year? If so, by whom?: No Do you feel safe in your current relationship?: No Is there a partner from a previous relationship who is making you feel unsafe now?: No Are you made to feel afraid or neglected: No [employer]al Healthcare Practices: Buddhist Are you DNR?: No Advance Directives: No Do you have thoughts of harming others: None Do you have a plan to hurt others: No Plan Recently lost weight without trying: No Nutrition Risks: No Nutritional Risk Poor oral hygiene: No service: Yes Sexual orientation: Straight/Heterosexual Meds Allergies Allergy/AdvReac Type Severity Reaction Status Date / Time codeine Allergy Intermediate Rash Verified 07/07/22 14:40 Active Medications: Current Medications Acetaminophen (Acetaminophen 325 Mg Tablet) 650 mg PO Q6H PRN PRN Reason: Headache/Pain Mild Scale (1-3) Last Admin: 07/19/22 11:16 Dose: 650 mg Al Hydroxide/Mg Hydroxide (Magnesium Hydrox/Alum Hydrox 30 Ml Oral.Susp) 30 ml PO Q6H PRN PRN Reason: Heartburn/Nausea Aripiprazole (Aripiprazole 5 Mg Tablet) 5 mg PO DAILY [facility] Last Admin: 07/19/22 08:29 Dose: 5 mg Azathioprine (Azathioprine 50 Mg Tablet) 100 mg PO DAILY [facility] Last Admin: 07/19/22 08:26 Dose: 100 mg Carbidopa/Levodopa (Carbidopa/Levodopa 25/100 Tablet) 1 tab PO TID [facility] Last Admin: 07/19/22 20:08 Dose: 1 tab Folic Acid (Folic Acid 1 Mg Tablet) 1 mg PO DAILY [facility] Last Admin: 07/19/22 08:26 Dose: 1 mg Lactated Ringer's (Lr) 1,000 mls @ 50 mls/hr IVCONT .Q20H [facility] [place] Carbonate ([place] Carbonate 300 Mg Tablet) 450 mg PO BEDTIME [facility] Last Admin: 07/19/22 20:08 Dose: 450 mg Loperamide HCl (Loperamide Hcl 2 Mg Capsule) 2 mg PO Q6H PRN PRN Reason: Diarrhea Last Admin: 07/19/22 11:16 Dose: 2 mg Magnesium Hydroxide (Milk Of Magnesia 30 Ml Oral.Susp) 30 ml PO DAILY PRN PRN Reason: Constipation Oxybutynin Chloride (Oxybutynin Chloride Er 5 Mg Tab.Er.24) 10 mg PO DAILY [facility] Last Admin: 07/19/22 08:27 Dose: 10 mg Primidone (Primidone 50 Mg Tablet) 100 mg PO DAILY [facility] Last Admin: 07/19/22 08:27 Dose: 100 mg Quetiapine Fumarate (Quetiapine Fumarate 25 Mg Tablet) 25 mg PO BEDTIME PRN PRN Reason: Insomnia Trazodone HCl (Trazodone Hcl 50 Mg Tablet) 50 mg PO BEDTIME PRN PRN Reason: Insomnia Last Admin: 07/11/22 21:38 Dose: 50 mg Trazodone HCl (Trazodone Hcl 100 Mg Tablet) 100 mg PO BEDTIME [facility] Last Admin: 07/19/22 20:08 Dose: 100 mg Venlafaxine HCl (Venlafaxine Hcl Er 150 Mg Cap.Er.24h) 150 mg PO DAILY [facility] Last Admin: 07/19/22 08:28 Dose: 150 mg Exam Exam Date and Time: July 20, 2022 0707 Height,Weight and Vital Signs: Height 5 ft 8 in Weight 91.172 kg Last Vital Signs Temp 98.1 F 07/20/22 06:55 Pulse 66 07/20/22 06:55 Resp 16 07/20/22 06:55 BP 125/78 07/20/22 06:55 Pulse Ox 95 07/20/22 06:55 O2 Del Method 07/20/22 06:55 O2 Flow Rate 2 07/18/22 08:27 Pertinent Lab Results Pertinent Lab Results: Laboratory Tests 07/07/22 07/08/22 07/08/22 15:02 08:02 08:02 WBC 5.4 RBC 4.11 L Hgb 13.8 L Hct 40.8 L MCV 99.3 H MCH 33.6 H MCHC 33.8 RDW 12.4 Plt Count 236 MPV 9.5 Immature Gran % (Auto) 0.4 Neut % (Auto) 65.0 Lymph % (Auto) 22.9 Cross % (Auto) 8.0 Eos % (Auto) 3.0 Baso % (Auto) 0.7 Lymph # (Auto) 1.2 Cross # (Auto) 0.4 Eos # (Auto) 0.2 Baso # (Auto) 0.0 Abs Immat Gran (auto) 0.02 Absolute Neuts (auto) 3.5 Absolute Nucleated RBC 0.000 Nucleated RBC % (auto) 0.0 Sodium 137 Potassium 4.6 Chloride 105 Carbon Dioxide 26 Anion Gap 11 L BUN 12 Creatinine 0.88 Estim Creat Clear Calc TNP Estimated GFR > 60 Fasting Glucose 107 H Estimat Average Glucose Hemoglobin A1c % Calcium 9.1 Total Bilirubin 0.4 AST 14 ALT 13 Alkaline Phosphatase 81 Total Protein 6.5 Albumin 4.1 Triglycerides 181 Cholesterol 168 LDL Cholesterol, Calc 98 HDL Cholesterol 34 Vitamin B12 Folate TSH 4.21 H Free T4 0.96 [place] 0.86 07/08/22 07/08/22 08:02 08:02 WBC RBC Hgb Hct MCV MCH MCHC RDW Plt Count MPV Immature Gran % (Auto) Neut % (Auto) Lymph % (Auto) Cross % (Auto) Eos % (Auto) Baso % (Auto) Lymph # (Auto) Cross # (Auto) Eos # (Auto) Baso # (Auto) Abs Immat Gran (auto) Absolute Neuts (auto) Absolute Nucleated RBC Nucleated RBC % (auto) Sodium Potassium Chloride Carbon Dioxide Anion Gap BUN Creatinine Estim Creat Clear Calc Estimated GFR Fasting Glucose Estimat Average Glucose 108 Hemoglobin A1c % 5.4 Calcium Total Bilirubin AST ALT Alkaline Phosphatase Total Protein Albumin Triglycerides Cholesterol LDL Cholesterol, Calc HDL Cholesterol Vitamin B12 746 Folate 18.9 TSH Free T4 [place] Airway Mallampati Class: II (Multiple caps laterally) TM Dist: >3cm Neck ROM: Full Heart: rrr Lungs: cta Assessment and Plan Assessment Anesthesia Assessment: Anesthesia Plan Discussed and Chart Reviewed Final Anesthetic Review Family History of Problems with Anesthesia: No History of Problems with Anesthesia: No NPO: Yes ASA Class: III Final Preanesthetic Review: No Changes in Pt Med Stat, Meds/Allgs Chart Reviewed and Consent Obtained/Reviewed Patient Risk: Intermediate Procedure Risk: Intermediate Anesthetic Plan Anesthetic Plan: GA Disposition: Standard PACU
--- NOTE | 2022-07-20 08:57 | P.PNPSI_ITS ---
Subjective Subjective Date of Service: 07/20/22 Reason For Visit: MDD Recurrent Severe w/Psychotic Features Subjective Notes: Conditional Voluntary Interim History: See ECT note patient's mood somewhat less depressed slowed mentation noted. Case reviewed with Dr. Swan and with his outpatient psychiatric provider Phil. brain ct reviewed with dr mcleod Mental Status Exam Mental Status Exam Patient Appearance: Fatigued and Rigid Patient Orientation: Person, Place and Situation Level of Consciousness: Alert Patient Behavior: Appropriate, Cooperative and Good Eye Contact Behavior Comments: Tremulous Mood Description: Depressed and Flat Affect Description: Blunted and Flat Patient Cognition Impaired: Yes Ability to Follow Directions: Fair Speech Pattern: Spontaneous Speech and Long Pauses Memory Description: Episodic Impaired Hallucinations: None Delusions: Paranoid Ideation Thought Process: Rumination and Slowed Thinking Thought Content: positive for [place] and positive for Suicidal Ideation (denies) Depressive Symptoms: Isolating-Friends/Family and Thoughts of /Suicide (denies) Judgement: Fair Diagnostics Vital Signs (24Hr): Vital Signs - 24 hr 07/19/22 20:00 07/20/22 06:00 07/20/22 06:55 Temperature 97.7 F 97.6 F 98.1 F Pulse Rate 76 75 66 Respiratory Rate 18 18 16 Blood Pressure 125/73 115/69 125/78 Pulse Oximetry 98 95 95 Oxygen Delivery Method Room Air Room Air Room Air Oxygen Flow Rate 07/20/22 07:50 07/20/22 07:55 07/20/22 08:00 Temperature 97.2 F Pulse Rate 64 68 76 Respiratory Rate 12 23 H 15 Blood Pressure 155/74 H 154/70 H 130/76 Pulse Oximetry 96 94 93 Oxygen Delivery Method Nasal Cannula with ETCO2 Nasal Cannula with ETCO2 Nasal Cannula with ETCO2 Oxygen Flow Rate 2 2 2 07/20/22 08:05 07/20/22 08:20 07/20/22 08:35 Temperature 97.5 F Pulse Rate 78 71 68 Respiratory Rate 12 17 17 Blood Pressure 141/81 H 134/88 135/71 Pulse Oximetry 93 96 96 Oxygen Delivery Method Nasal Cannula with ETCO2 Room Air Room Air Oxygen Flow Rate 2 BMI result Body Mass Index 30.5 Labs Results: 07/08/22 08:02 07/08/22 08:02 Medications Medications Current Medications Acetaminophen (Acetaminophen 325 Mg Tablet) 650 mg PO Q6H PRN PRN Reason: Headache/Pain Mild Scale (1-3) Last Admin: 07/19/22 11:16 Dose: 650 mg Al Hydroxide/Mg Hydroxide (Magnesium Hydrox/Alum Hydrox 30 Ml Oral.Susp) 30 ml PO Q6H PRN PRN Reason: Heartburn/Nausea Aripiprazole (Aripiprazole 5 Mg Tablet) 5 mg PO DAILY [facility] Last Admin: 07/19/22 08:29 Dose: 5 mg Azathioprine (Azathioprine 50 Mg Tablet) 100 mg PO DAILY [facility] Last Admin: 07/19/22 08:26 Dose: 100 mg Carbidopa/Levodopa (Carbidopa/Levodopa 25/100 Tablet) 1 tab PO TID [facility] Last Admin: 07/19/22 20:08 Dose: 1 tab Folic Acid (Folic Acid 1 Mg Tablet) 1 mg PO DAILY [facility] Last Admin: 07/19/22 08:26 Dose: 1 mg Lactated Ringer's (Lr) 1,000 mls @ 50 mls/hr IVCONT .Q20H [facility] Lactated Ringer's (Lr) 500 mls @ 20 mls/hr IVCONT .Q24H [facility] [place] Carbonate ([place] Carbonate 300 Mg Tablet) 450 mg PO BEDTIME [facility] Last Admin: 07/19/22 20:08 Dose: 450 mg Loperamide HCl (Loperamide Hcl 2 Mg Capsule) 2 mg PO Q6H PRN PRN Reason: Diarrhea Last Admin: 07/19/22 11:16 Dose: 2 mg Magnesium Hydroxide (Milk Of Magnesia 30 Ml Oral.Susp) 30 ml PO DAILY PRN PRN Reason: Constipation Oxybutynin Chloride (Oxybutynin Chloride Er 5 Mg Tab.Er.24) 10 mg PO DAILY [facility] Last Admin: 07/19/22 08:27 Dose: 10 mg Primidone (Primidone 50 Mg Tablet) 100 mg PO DAILY [facility] Last Admin: 07/19/22 08:27 Dose: 100 mg Quetiapine Fumarate (Quetiapine Fumarate 25 Mg Tablet) 25 mg PO BEDTIME PRN PRN Reason: Insomnia Trazodone HCl (Trazodone Hcl 50 Mg Tablet) 50 mg PO BEDTIME PRN PRN Reason: Insomnia Last Admin: 07/11/22 21:38 Dose: 50 mg Trazodone HCl (Trazodone Hcl 100 Mg Tablet) 100 mg PO BEDTIME [facility] Last Admin: 07/19/22 20:08 Dose: 100 mg Venlafaxine HCl (Venlafaxine Hcl Er 150 Mg Cap.Er.24h) 150 mg PO DAILY [facility] Last Admin: 07/19/22 08:28 Dose: 150 mg Allergies Allergies Allergy/AdvReac Type Severity Reaction Status Date / Time codeine Allergy Intermediate Rash Verified 07/07/22 14:40 Assessment & Plan Assessment & Plan (1) Major depressive disorder, recurrent episode with mood-congruent psychotic features: Status: Acute Code(s): F33.3 - Major depressive disorder, recurrent, severe with psychotic symptoms (2) Parkinsonian features: Status: Acute Code(s): R25.9 - Unspecified abnormal involuntary movements Plan pt with paranoid ideation computer broken into ongoing paranoid concerns so for not responding to ECT was changed bitemporal for psychotic depression monitor affects of ECT monitor for cognitive side effects try and review imaging from [place] brain imaging call placed to patient's outpatient psychiatrist me with discharge planning coordinating click care clarifying patient's history consider clozapine 07/20/2022 See ECT note case reviewed with [place] physicians discussed option of clozapine or olanzapine as Abilify discontinued. Patient had been stable on 7.5 mg of olanzapine previously number of years ago I spent minutes with the patient and/or on the patient floor today, gr eater than?50% of which was spent counseling/coordinating care. Patient educated on: diagnosis, medication risk/benefits, ECT and medical condition Reason for contiued inpatient stay Substantial Risk for: harm to self and med/psych decompensation Time Spent With Patient Time: Total time managing care of this patient today ____ minutes.
--- NOTE | 2022-07-20 08:57 | HO.ECTPROC ---
ECT Procedure Note Diagnosis/Treatment Date of Service: 07/20/22 Diagnosis: Major Depressive Disorder Previous ECT Date: 07/18/22 Current Treatment Number: 5 Treatment: Series Interval Clinical Notes: Patient tolerating ECT continues to have paranoid concerns ? less depressed Time: Total time managing care of this patient today ____ minutes. ECT Settings Device: THYMATRON DGx Electrode Placement: Bitemporal Program/Pulse Width: 0.50 Energy Percent: 100 Seizure Duration By EEG (in seconds): 60 Medications Administration General Anesthetic: Etomidate (12) Muscle Relaxant: Succinylcholine (120) Ancillary Medications Analgesics: Torodol - Pre ECT Anti-emetics: Zofran - Pre ECT Miscillaneous Medications: Propofol Airway Management Airway Management: Bag Mask Ventilation Treatment Recommendations No Changes Recommended: No change Pt Tolerated Procedure w/o Issue: Yes
[2022-07-20] MEDS: azaTHIOprine 50 MG TABLET 100 MG PO (09:49)
[2022-07-20] MEDS: Carbidopa/Levodopa 25/100 TABLET 1 TAB PO ×3 (09:50→20:35)
[2022-07-20] MEDS: ARIPiprazole 5 MG TABLET PO (09:50)
[2022-07-20] MEDS: Folic Acid 1 MG TABLET PO (09:50)
[2022-07-20] MEDS: Primidone 50 MG TABLET 100 MG PO (09:51)
[2022-07-20] MEDS: Venlafaxine HCl ER 150 MG CAP.ER.24H PO (09:52)
[2022-07-20] MEDS: Acetaminophen 325 MG TABLET 650 MG PO (13:04)
[2022-07-20] MEDS: Loperamide HCl 2 MG CAPSULE PO (17:00)
[2022-07-20] MEDS: Lithium Carbonate 300 MG TABLET 450 MG PO (20:35)
[2022-07-20] MEDS: traZODone HCL 100 MG TABLET PO (20:36)
[2022-07-21] MEDS: OLANZapine 2.5 MG TABLET PO ×2 (00:47→22:05)
[2022-07-21 07:30] VITALS: BP 106/68; PULSE 74; RESP 18; TEMP 36.6; O2SAT 96
[2022-07-21] MEDS: ARIPiprazole 5 MG TABLET PO (08:18)
[2022-07-21] MEDS: azaTHIOprine 50 MG TABLET 100 MG PO (08:19)
[2022-07-21] MEDS: Primidone 50 MG TABLET PO (08:19)
[2022-07-21] MEDS: Folic Acid 1 MG TABLET PO (08:19)
[2022-07-21] MEDS: Carbidopa/Levodopa 25/100 TABLET 1 TAB PO ×3 (08:19→22:04)
[2022-07-21] MEDS: Venlafaxine HCl ER 150 MG CAP.ER.24H PO (08:19)
[2022-07-21] MEDS: Loperamide HCl 2 MG CAPSULE PO ×2 (11:12→15:36)
--- NOTE | 2022-07-21 15:14 | PC.NURSE ---
This account underwriter spoke to Dr. Urbina who approved loperamide 2 mg for early dose
--- NOTE | 2022-07-21 15:41 | P.PNPSI_ITS ---
Subjective Subjective Date of Service: 07/21/22 Subjective Notes: Conditional Voluntary Interim History: Patient seen case reviewed with outpatient providers and patient seen with his 07/20/22 18:00 07/21/22 garage Temperature 97.7 F 97.9 F Mental Status Exam Mental Status Exam Respiratory Rate 18 18 07/20/22 Tremulous
--- NOTE | 2022-07-21 15:41 | HO.PSYCHPN ---
Subjective Subjective Date of Service: 07/21/22 Reason For Visit: MDD Recurrent Severe w/Psychotic Features Subjective Notes: Conditional Voluntary Interim History: Patient seen case reviewed with outpatient providers and patient seen with his . Patient shows some harding affect able to discuss how he felt he could hear the hard drive when he was home and somehow how that led him to trying to kill himself through carbon monoxide poisoning but cannot really explain still has thoughts that things can be going on with the computer denies suicidal plan or intent in this setting. Patient's states how she found him in the garage Discussed tapering off Abilify starting olanzapine continuing ECT and discussed with patient transition to maintenance ECT when more stable Mental Status Exam Mental Status Exam Patient Appearance: Fatigued and Rigid Patient Orientation: Person, Place and Situation Level of Consciousness: Alert Patient Behavior: Appropriate, Cooperative and Good Eye Contact Behavior Comments: Tremulous Mood Description: Depressed, Blunted and Flat Affect Description: Constricted, Blunted and Flat Patient Cognition Impaired: Yes Ability to Follow Directions: Fair Speech Pattern: Spontaneous Speech and Long Pauses Memory Description: Episodic Impaired Hallucinations: None Delusions: Paranoid Ideation Thought Process: Rumination and Slowed Thinking Thought Content: positive for [place], positive for Suicidal Ideation (denies) and negative for Homicidal Ideation Depressive Symptoms: Isolating-Friends/Family, Thoughts of /Suicide (denies), Loss of Energy and Difficulty Concentrating Judgement: Fair Diagnostics Vital Signs (24Hr): Vital Signs - 24 hr 07/20/22 18:00 07/21/22 07:30 Temperature 97.7 F 97.9 F Pulse Rate 86 74 Respiratory Rate 18 18 Blood Pressure 110/67 106/68 Pulse Oximetry 97 96 Oxygen Delivery Method Room Air Room Air BMI result Body Mass Index 30.5 Labs Results: 07/08/22 08:02 07/08/22 08:02 Medications Medications Current Medications Acetaminophen (Acetaminophen 325 Mg Tablet) 650 mg PO Q6H PRN PRN Reason: Headache/Pain Mild Scale (1-3) Last Admin: 07/20/22 13:04 Dose: 650 mg Al Hydroxide/Mg Hydroxide (Magnesium Hydrox/Alum Hydrox 30 Ml Oral.Susp) 30 ml PO Q6H PRN PRN Reason: Heartburn/Nausea Aripiprazole (Aripiprazole 5 Mg Tablet) 5 mg PO DAILY [facility] Last Admin: 07/21/22 08:18 Dose: 5 mg Azathioprine (Azathioprine 50 Mg Tablet) 100 mg PO DAILY [facility] Last Admin: 07/21/22 08:19 Dose: 100 mg Carbidopa/Levodopa (Carbidopa/Levodopa 25/100 Tablet) 1 tab PO TID [facility] Last Admin: 07/21/22 15:36 Dose: 1 tab Folic Acid (Folic Acid 1 Mg Tablet) 1 mg PO DAILY [facility] Last Admin: 07/21/22 08:19 Dose: 1 mg [place] Carbonate ([place] Carbonate 300 Mg Tablet) 450 mg PO BEDTIME [facility] Last Admin: 07/20/22 20:35 Dose: 450 mg Loperamide HCl (Loperamide Hcl 2 Mg Capsule) 2 mg PO Q6H PRN PRN Reason: Diarrhea Last Admin: 07/21/22 15:36 Dose: 2 mg Magnesium Hydroxide (Milk Of Magnesia 30 Ml Oral.Susp) 30 ml PO DAILY PRN PRN Reason: Constipation Olanzapine (Olanzapine 2.5 Mg Tablet) 2.5 mg PO BEDTIME [facility] Last Admin: 07/21/22 00:47 Dose: 2.5 mg Oxybutynin Chloride (Oxybutynin Chloride Er 5 Mg Tab.Er.24) 10 mg PO DAILY [facility] Last Admin: 07/21/22 08:18 Dose: 10 mg Primidone (Primidone 50 Mg Tablet) 50 mg PO DAILY [facility] Last Admin: 07/21/22 08:19 Dose: 50 mg Quetiapine Fumarate (Quetiapine Fumarate 25 Mg Tablet) 25 mg PO BEDTIME PRN PRN Reason: Insomnia Trazodone HCl (Trazodone Hcl 50 Mg Tablet) 50 mg PO BEDTIME PRN PRN Reason: Insomnia Last Admin: 07/11/22 21:38 Dose: 50 mg Trazodone HCl (Trazodone Hcl 100 Mg Tablet) 100 mg PO BEDTIME [facility] Last Admin: 07/20/22 20:36 Dose: 100 mg Venlafaxine HCl (Venlafaxine Hcl Er 150 Mg Cap.Er.24h) 150 mg PO DAILY [facility] Last Admin: 07/21/22 08:19 Dose: 150 mg Allergies Allergies Allergy/AdvReac Type Severity Reaction Status Date / Time codeine Allergy Intermediate Rash Verified 07/07/22 14:40 Assessment & Plan Assessment & Plan (1) Major depressive disorder, recurrent episode with mood-congruent psychotic features: Status: Acute Code(s): F33.3 - Major depressive disorder, recurrent, severe with psychotic symptoms (2) Parkinsonian features: Status: Acute Code(s): R25.9 - Unspecified abnormal involuntary movements Plan pt with paranoid ideation computer broken into ongoing paranoid concerns so for not responding to ECT was changed bitemporal for psychotic depression monitor affects of ECT monitor for cognitive side effects try and review imaging from [place] brain imaging call placed to patient's outpatient psychiatrist me with discharge planning coordinating click care clarifying patient's history consider clozapine 07/20/2022 See ECT note case reviewed with [place] physicians discussed option of clozapine or olanzapine as Abilify discontinued. Patient had been stable on 7.5 mg of olanzapine previously number of years ago 07/21/2022 Patient showing some improve improvement less tremor increase olanzapine to 5 mg at bedtime brain MRI ordered head CT scan at [place] have been read by their radiology question of changes in the basal ganglion area Reason for contiued inpatient stay Substantial Risk for: harm to self, inability to function and rapid decompensation Time Spent With Patient Time: Total time managing care of this patient today ____ minutes.
[2022-07-21 18:00] VITALS: BP 118/69; PULSE 78; RESP 16; TEMP 36.2; O2SAT 95
[2022-07-21] MEDS: traZODone HCL 100 MG TABLET PO (22:04)
[2022-07-22] VITALS (10 sets, daily range): BP systolic 113–146; BP diastolic 65–82; PULSE 68–85; RESP 12–22; TEMP 36.1–36.8; O2SAT 94–97
--- NOTE | 2022-07-22 05:36 | MHC.SHP ---
Pre-Procedural Eval Section A Date of Service: 07/22/22 Changes since office visit: Yes New Medical Problems, Yes Changes in Medication and Yes Patient answered all questions; No Cold of Flu in the past 2 weeks The History & Physical has been completed within 30 days and I have reviewed it.: Yes Section B Chief Complaint: MDD Recurrent Severe w/Psychotic Features Allergies: Allergies Allergy/AdvReac Type Severity Reaction Status Date / Time codeine Allergy Intermediate Rash Verified 07/07/22 14:40 Plan I have reviewed the history and physical and performed a pertinent physical examination on my patient. No changes have occurred unless specified. Time Spent With Patient Time: Total time managing care of this patient today ____ minutes.
--- NOTE | 2022-07-22 06:57 | HO.ANESPROP2 ---
[facility] Active Problems Active Problems: All Active Problems (Updated 07/07/22 @ 17:49 by TRUE Lebron) Routine medical exam (Acute) Major depressive disorder, recurrent episode with mood-congruent psychotic features (Acute) Hypothyroidism (Acute) Vitamin B12 deficiency (Acute) Parkinsonian features (Acute) Crohn's disease (Acute) Past Medical History Medical History Crohn's disease Hypothyroidism Major depressive disorder, recurrent episode with mood-congruent psychotic features Osteoarthritis Parkinsonian features Vitamin B12 deficiency Functional capacity: independent ambulation Family History Family History Father Stomach cancer Mother Dementia Family history of problems with anesthesia: No Surgical History Surgical History S/P small bowel resection History of Problems with Anesthesia: No Social History Social History Household Members: Spouse Housing: House Do you presently have visiting nurse or other home services: No Patient Tobacco Use Status: Never used Tobacco service: Yes Sexual orientation: Straight/Heterosexual Meds Allergies Allergy/AdvReac Type Severity Reaction Status Date / Time codeine Allergy Intermediate Rash Verified 07/07/22 14:40 Active Medications: Current Medications Acetaminophen (Acetaminophen 325 Mg Tablet) 650 mg PO Q6H PRN PRN Reason: Headache/Pain Mild Scale (1-3) Last Admin: 07/20/22 13:04 Dose: 650 mg Al Hydroxide/Mg Hydroxide (Magnesium Hydrox/Alum Hydrox 30 Ml Oral.Susp) 30 ml PO Q6H PRN PRN Reason: Heartburn/Nausea Aripiprazole (Aripiprazole 5 Mg Tablet) 5 mg PO DAILY [facility] Last Admin: 07/21/22 08:18 Dose: 5 mg Azathioprine (Azathioprine 50 Mg Tablet) 100 mg PO DAILY [facility] Last Admin: 07/21/22 08:19 Dose: 100 mg Carbidopa/Levodopa (Carbidopa/Levodopa 25/100 Tablet) 1 tab PO TID [facility] Last Admin: 07/21/22 22:04 Dose: 1 tab Folic Acid (Folic Acid 1 Mg Tablet) 1 mg PO DAILY [facility] Last Admin: 07/21/22 08:19 Dose: 1 mg [place] Carbonate ([place] Carbonate 300 Mg Tablet) 450 mg PO BEDTIME [facility] Last Admin: 07/21/22 22:07 Dose: Not Given Loperamide HCl (Loperamide Hcl 2 Mg Capsule) 2 mg PO Q6H PRN PRN Reason: Diarrhea Last Admin: 07/21/22 15:36 Dose: 2 mg Magnesium Hydroxide (Milk Of Magnesia 30 Ml Oral.Susp) 30 ml PO DAILY PRN PRN Reason: Constipation Olanzapine (Olanzapine 5 Mg Tablet) 5 mg PO BEDTIME [facility] Oxybutynin Chloride (Oxybutynin Chloride Er 5 Mg Tab.Er.24) 10 mg PO DAILY [facility] Last Admin: 07/21/22 08:18 Dose: 10 mg Primidone (Primidone 50 Mg Tablet) 50 mg PO DAILY [facility] Last Admin: 07/21/22 08:19 Dose: 50 mg Quetiapine Fumarate (Quetiapine Fumarate 25 Mg Tablet) 25 mg PO BEDTIME PRN PRN Reason: Insomnia Trazodone HCl (Trazodone Hcl 50 Mg Tablet) 50 mg PO BEDTIME PRN PRN Reason: Insomnia Last Admin: 07/11/22 21:38 Dose: 50 mg Trazodone HCl (Trazodone Hcl 100 Mg Tablet) 100 mg PO BEDTIME [facility] Last Admin: 07/21/22 22:04 Dose: 100 mg Venlafaxine HCl (Venlafaxine Hcl Er 150 Mg Cap.Er.24h) 150 mg PO DAILY [facility] Last Admin: 07/21/22 08:19 Dose: 150 mg Exam Exam Date and Time: July 22, 2022 0657 Height,Weight and Vital Signs: Height 5 ft 8 in Weight 91.172 kg Last Vital Signs Temp 97.9 F 07/22/22 06:37 Pulse 69 07/22/22 06:37 Resp 12 07/22/22 06:37 BP 125/68 07/22/22 06:37 Pulse Ox 94 07/22/22 06:37 O2 Del Method 07/22/22 06:37 O2 Flow Rate 2 07/20/22 08:05 Pertinent Lab Results Pertinent Lab Results: Laboratory Tests 07/07/22 07/08/22 07/08/22 15:02 08:02 08:02 WBC 5.4 RBC 4.11 L Hgb 13.8 L Hct 40.8 L MCV 99.3 H MCH 33.6 H MCHC 33.8 RDW 12.4 Plt Count 236 MPV 9.5 Immature Gran % (Auto) 0.4 Neut % (Auto) 65.0 Lymph % (Auto) 22.9 Becker % (Auto) 8.0 Eos % (Auto) 3.0 Baso % (Auto) 0.7 Lymph # (Auto) 1.2 Becker # (Auto) 0.4 Eos # (Auto) 0.2 Baso # (Auto) 0.0 Abs Immat Gran (auto) 0.02 Absolute Neuts (auto) 3.5 Absolute Nucleated RBC 0.000 Nucleated RBC % (auto) 0.0 Sodium 137 Potassium 4.6 Chloride 105 Carbon Dioxide 26 Anion Gap 11 L BUN 12 Creatinine 0.88 Estim Creat Clear Calc TNP Estimated GFR > 60 Fasting Glucose 107 H Estimat Average Glucose Hemoglobin A1c % Calcium 9.1 Total Bilirubin 0.4 AST 14 ALT 13 Alkaline Phosphatase 81 Total Protein 6.5 Albumin 4.1 Triglycerides 181 Cholesterol 168 LDL Cholesterol, Calc 98 HDL Cholesterol 34 Vitamin B12 Folate TSH 4.21 H Free T4 0.96 [place] 0.86 07/08/22 07/08/22 08:02 08:02 WBC RBC Hgb Hct MCV MCH MCHC RDW Plt Count MPV Immature Gran % (Auto) Neut % (Auto) Lymph % (Auto) Becker % (Auto) Eos % (Auto) Baso % (Auto) Lymph # (Auto) Becker # (Auto) Eos # (Auto) Baso # (Auto) Abs Immat Gran (auto) Absolute Neuts (auto) Absolute Nucleated RBC Nucleated RBC % (auto) Sodium Potassium Chloride Carbon Dioxide Anion Gap BUN Creatinine Estim Creat Clear Calc Estimated GFR Fasting Glucose Estimat Average Glucose 108 Hemoglobin A1c % 5.4 Calcium Total Bilirubin AST ALT Alkaline Phosphatase Total Protein Albumin Triglycerides Cholesterol LDL Cholesterol, Calc HDL Cholesterol Vitamin B12 746 Folate 18.9 TSH Free T4 [place] Airway Mallampati Class: II (Multiple caps laterally) TM Dist: >3cm Neck ROM: Full Heart: rrr Lungs: cta Assessment and Plan Assessment Anesthesia Assessment: Anesthesia Plan Discussed and Chart Reviewed Final Anesthetic Review Family History of Problems with Anesthesia: No History of Problems with Anesthesia: No NPO: Yes ASA Class: III Final Preanesthetic Review: No Changes in Pt Med Stat, Meds/Allgs Chart Reviewed and Consent Obtained/Reviewed Patient Risk: Intermediate Procedure Risk: Intermediate Anesthetic Plan Anesthetic Plan: GA Disposition: Standard PACU
--- NOTE | 2022-07-22 08:01 | HO.ECTPROC ---
ECT Procedure Note Diagnosis/Treatment Date of Service: 07/22/22 Diagnosis: Major Depressive Disorder Previous ECT Date: 07/20/22 Current Treatment Number: 6 Treatment: Series Interval Clinical Notes: Patient tolerating ECT continues to have paranoid concerns ? less depressed this continues Time: Total time managing care of this patient today ____ minutes. ECT Settings Device: THYMATRON DGx Electrode Placement: Bitemporal Program/Pulse Width: 0.50 Energy Percent: 100 Seizure Duration By EEG (in seconds): 45 Medications Administration General Anesthetic: Etomidate (12) Muscle Relaxant: Succinylcholine (120) Ancillary Medications Analgesics: Torodol - Pre ECT Anti-emetics: Zofran - Pre ECT Miscillaneous Medications: Propofol Airway Management Airway Management: Bag Mask Ventilation Treatment Recommendations No Changes Recommended: No change Notes: Less bradykinetic mood improved but still becomes quite psychotically delusional E preoccupied denies active SI Pt Tolerated Procedure w/o Issue: Yes
[2022-07-22] MEDS: ARIPiprazole 5 MG TABLET PO (09:32)
[2022-07-22] MEDS: Folic Acid 1 MG TABLET PO (09:32)
[2022-07-22] MEDS: Carbidopa/Levodopa 25/100 TABLET 1 TAB PO ×3 (09:32→21:56)
[2022-07-22] MEDS: Primidone 50 MG TABLET PO (09:32)
[2022-07-22] MEDS: Venlafaxine HCl ER 150 MG CAP.ER.24H PO (09:32)
[2022-07-22] MEDS: azaTHIOprine 50 MG TABLET 100 MG PO (09:33)
--- NOTE | 2022-07-22 16:33 | HO.PSYCHPN ---
Subjective Subjective Date of Service: 07/22/22 Reason For Visit: MDD Recurrent Severe w/Psychotic Features Subjective Notes: Conditional Voluntary Interim History: Pt in bed. He had ECT. He reports mild headache but reports tylenol working. He reports mood better, denies suicidal or homicidal ideation. He denies VH/AH. Some residual suspiciousness but pt with brighter affect and smiles at times during interview with poor eye contact. Medication Compliance: Yes Side effects from medications: No Attending Groups: No Review of Systems Constitutional: Reports weight gain Eyes: Reports as per HPI Reports system reviewed and no additional complaints, except as documented and Reports disequilibrium Cardiovascular: Reports no additional cardiovascular complaints Respiratory: Reports no additional respiratory complaints Gastrointestinal: Reports as per HPI, Reports bloating and Reports constipation Genitourinary: Reports no additional male genitourinary complaints Musculoskeletal: Reports no additional musculoskeletal complaints Skin/Breast: Reports system reviewed and no additional complaints, except as docu Reports as per HPI, Reports behavioral changes, Reports confusion, Reports memory loss, Reports restless legs, Reports tremor(s) and Reports disequilibrium Psychiatric: Reports behavioral changes, Reports confusion, Reports depression, Reports hopelessness and Reports memory loss Endocrine: Reports no additional endocrine complaints Hematologic/Lymphatic: Reports no additional hematologic/lymphatic complaints Allergic/Immunologic: Reports no additional allergic/immunologic complaints Mental Status Exam Mental Status Exam Patient Appearance: Fatigued and Rigid Patient Orientation: Person, Place and Situation Level of Consciousness: Alert Patient Behavior: Appropriate, Cooperative and Good Eye Contact Behavior Comments: Tremulous Mood Description: Depressed, Blunted and Flat Affect Description: Constricted, Blunted and Flat Patient Cognition Impaired: Yes Ability to Follow Directions: Fair Speech Pattern: Spontaneous Speech and Long Pauses Memory Description: Episodic Impaired Diagnostics Vital Signs (24Hr): Vital Signs - 24 hr 07/21/22 18:00 07/22/22 05:43 07/22/22 06:37 Temperature 97.2 F 98 F 97.9 F Pulse Rate 78 70 69 Respiratory Rate 16 16 12 Blood Pressure 118/69 118/67 125/68 Pulse Oximetry 95 97 94 Oxygen Delivery Method Room Air Room Air Oxygen Flow Rate 07/22/22 07:50 07/22/22 07:55 07/22/22 08:00 Temperature 98.3 F Pulse Rate 68 71 76 Respiratory Rate 18 20 22 H Blood Pressure 146/65 H 121/67 133/74 Pulse Oximetry 96 94 94 Oxygen Delivery Method High Flow Nasal Cannula Nasal Cannula with ETCO2 Nasal Cannula with ETCO2 Oxygen Flow Rate 2 2 2 07/22/22 08:02 07/22/22 08:17 07/22/22 08:32 Temperature 97.0 F Pulse Rate 79 85 Respiratory Rate 15 17 17 Blood Pressure 138/75 141/82 H 133/77 Pulse Oximetry 95 96 96 Oxygen Delivery Method Nasal Cannula with ETCO2 Room Air Room Air Oxygen Flow Rate 2 07/22/22 09:30 Temperature 97.7 F Pulse Rate 72 Respiratory Rate 16 Blood Pressure 121/66 Pulse Oximetry 97 Oxygen Delivery Method Room Air Oxygen Flow Rate BMI result Body Mass Index 30.5 Labs Results: 07/08/22 08:02 07/08/22 08:02 Imaging Radiology Impressions: ITS Impressions Brain MRI 07/22/22 12:58 IMPRESSION: - No acute intracranial findings. - There is global cerebral volume loss and there is mild chronic microangiopathy. Medications Medications Current Medications Acetaminophen (Acetaminophen 325 Mg Tablet) 650 mg PO Q6H PRN PRN Reason: Headache/Pain Mild Scale (1-3) Last Admin: 07/20/22 13:04 Dose: 650 mg Al Hydroxide/Mg Hydroxide (Magnesium Hydrox/Alum Hydrox 30 Ml Oral.Susp) 30 ml PO Q6H PRN PRN Reason: Heartburn/Nausea Aripiprazole (Aripiprazole 5 Mg Tablet) 5 mg PO DAILY [facility] Last Admin: 07/22/22 09:32 Dose: 5 mg Azathioprine (Azathioprine 50 Mg Tablet) 100 mg PO DAILY [facility] Last Admin: 07/22/22 09:33 Dose: 100 mg Carbidopa/Levodopa (Carbidopa/Levodopa 25/100 Tablet) 1 tab PO TID [facility] Last Admin: 07/22/22 16:05 Dose: 1 tab Folic Acid (Folic Acid 1 Mg Tablet) 1 mg PO DAILY [facility] Last Admin: 07/22/22 09:32 Dose: 1 mg [place] Carbonate ([place] Carbonate 300 Mg Tablet) 450 mg PO BEDTIME [facility] Last Admin: 07/21/22 22:07 Dose: Not Given Loperamide HCl (Loperamide Hcl 2 Mg Capsule) 2 mg PO Q6H PRN PRN Reason: Diarrhea Last Admin: 07/21/22 15:36 Dose: 2 mg Magnesium Hydroxide (Milk Of Magnesia 30 Ml Oral.Susp) 30 ml PO DAILY PRN PRN Reason: Constipation Olanzapine (Olanzapine 5 Mg Tablet) 5 mg PO BEDTIME [facility] Oxybutynin Chloride (Oxybutynin Chloride Er 5 Mg Tab.Er.24) 10 mg PO DAILY [facility] Last Admin: 07/22/22 09:32 Dose: 10 mg Primidone (Primidone 50 Mg Tablet) 50 mg PO DAILY [facility] Last Admin: 07/22/22 09:32 Dose: 50 mg Quetiapine Fumarate (Quetiapine Fumarate 25 Mg Tablet) 25 mg PO BEDTIME PRN PRN Reason: Insomnia Trazodone HCl (Trazodone Hcl 50 Mg Tablet) 50 mg PO BEDTIME PRN PRN Reason: Insomnia Last Admin: 07/11/22 21:38 Dose: 50 mg Trazodone HCl (Trazodone Hcl 100 Mg Tablet) 100 mg PO BEDTIME [facility] Last Admin: 07/21/22 22:04 Dose: 100 mg Venlafaxine HCl (Venlafaxine Hcl Er 150 Mg Cap.Er.24h) 150 mg PO DAILY [facility] Last Admin: 07/22/22 09:32 Dose: 150 mg Allergies Allergies Allergy/AdvReac Type Severity Reaction Status Date / Time codeine Allergy Intermediate Rash Verified 07/07/22 14:40 Assessment & Plan Assessment & Plan (1) Major depressive disorder, recurrent episode with mood-congruent psychotic features: Status: Acute Code(s): F33.3 - Major depressive disorder, recurrent, severe with psychotic symptoms (2) Parkinsonian features: Status: Acute Code(s): R25.9 - Unspecified abnormal involuntary movements Plan pt with paranoid ideation computer broken into ongoing paranoid concerns so for not responding to ECT was changed bitemporal for psychotic depression monitor affects of ECT monitor for cognitive side effects try and review imaging from [place] brain imaging call placed to patient's outpatient psychiatrist me with discharge planning coordinating click care clarifying patient's history consider clozapine 07/20/2022 See ECT note case reviewed with [place] physicians discussed option of clozapine or olanzapine as Abilify discontinued. Patient had been stable on 7.5 mg of olanzapine previously number of years ago 07/21/2022 Patient showing some improve improvement less tremor increase olanzapine to 5 mg at bedtime brain MRI ordered head CT scan at [place] have been read by their radiology question of changes in the basal ganglion area 07/22 continue current t. Patient educated on: diagnosis Informed Consent: understands Reason for contiued inpatient stay Substantial Risk for: harm to self Time Spent With Patient Time: Total time managing care of this patient today ____ minutes.
[2022-07-22] MEDS: Acetaminophen 325 MG TABLET 650 MG PO (16:58)
[2022-07-22] MEDS: Lithium Carbonate 300 MG TABLET 450 MG PO (21:55)
[2022-07-22] MEDS: OLANZapine 5 MG TABLET PO (21:55)
[2022-07-22] MEDS: traZODone HCL 100 MG TABLET PO (21:56)
[2022-07-23 07:30] VITALS: BP 132/73; PULSE 74; RESP 18; TEMP 37; O2SAT 95
[2022-07-23 08:07] LABS: Lithium 0.45 mmol/L (0.60-1.20)
[2022-07-23 08:13] LABS: Alanine Aminotransferase 12 U/L (0-40); Albumin Level 3.8 g/dL (3.5-5.0); Alkaline Phosphatase 88 U/L (39-117); Anion Gap 11 (12-20); Aspartate Amino Transferase 17 U/L (5-37); Bilirubin Total 0.4 mg/dL (0.0-1.0); Blood Urea Nitrogen 15 mg/dL (9-16); Calcium 8.9 mg/dL (8.4-10.2); Carbon Dioxide 28 mmol/L (22-29); Chloride 106 mmol/L (96-108); Creatinine Clr Calc Pharmacy 66.1; Estimated Glomerular Filt Rate > 60; Glucose Fasting 101 mg/dL (60-99); Potassium 5.2 mmol/L (3.3-5.1); Sodium 140 mmol/L (135-145); Total Protein 6.1 g/dL (6.5-8.0)
[2022-07-23] MEDS: Venlafaxine HCl ER 150 MG CAP.ER.24H PO (09:04)
[2022-07-23] MEDS: ARIPiprazole 5 MG TABLET PO (09:04)
[2022-07-23] MEDS: Carbidopa/Levodopa 25/100 TABLET 1 TAB PO ×3 (09:04→20:48)
[2022-07-23] MEDS: Folic Acid 1 MG TABLET PO (09:04)
[2022-07-23] MEDS: azaTHIOprine 50 MG TABLET 100 MG PO (09:04)
[2022-07-23] MEDS: Primidone 50 MG TABLET PO (09:04)
--- NOTE | 2022-07-23 12:42 | HO.PSYCHPN ---
Subjective Subjective Date of Service: 07/23/22 Reason For Visit: MDD Recurrent Severe w/Psychotic Features Subjective Notes: Conditional Voluntary Interim History: Patient was seen and discussed in rounds today. Records and plans were reviewed. He did receive his ECT yesterday. Affect is reported to be brighter. No complaints or side effects. No headaches. Eating and sleeping adequately. No changes were made today Review of Systems Constitutional: Reports weight gain Eyes: Reports as per HPI Reports system reviewed and no additional complaints, except as documented and Reports disequilibrium Cardiovascular: Reports no additional cardiovascular complaints Respiratory: Reports no additional respiratory complaints Gastrointestinal: Reports as per HPI, Reports bloating and Reports constipation Genitourinary: Reports no additional male genitourinary complaints Musculoskeletal: Reports no additional musculoskeletal complaints Skin/Breast: Reports system reviewed and no additional complaints, except as docu Reports as per HPI, Reports behavioral changes, Reports confusion, Reports memory loss, Reports restless legs, Reports tremor(s) and Reports disequilibrium Psychiatric: Reports behavioral changes, Reports confusion, Reports depression, Reports hopelessness and Reports memory loss Endocrine: Reports no additional endocrine complaints Hematologic/Lymphatic: Reports no additional hematologic/lymphatic complaints Allergic/Immunologic: Reports no additional allergic/immunologic complaints Mental Status Exam Mental Status Exam Patient Appearance: Fatigued and Rigid Patient Orientation: Person, Place and Situation Level of Consciousness: Alert Patient Behavior: Appropriate, Cooperative and Good Eye Contact Behavior Comments: Tremulous Mood Description: Depressed, Blunted and Flat Affect Description: Constricted, Blunted and Flat Patient Cognition Impaired: Yes Ability to Follow Directions: Fair Speech Pattern: Spontaneous Speech and Long Pauses Memory Description: Episodic Impaired Diagnostics Vital Signs (24Hr): Vital Signs - 24 hr 07/22/22 18:00 Temperature 97.7 F Pulse Rate 76 Respiratory Rate 16 Blood Pressure 113/69 Pulse Oximetry 96 Oxygen Delivery Method Room Air BMI result Body Mass Index 30.5 Labs Results: 07/08/22 08:02 07/23/22 07:34 Labs: Laboratory Results - last 48 hr 07/23/22 07/23/22 07:34 07:34 Sodium 140 Potassium 5.2 H Chloride 106 Carbon Dioxide 28 Anion Gap 11 L BUN 15 Creatinine 1.09 Estim Creat Clear Calc 66.1 Estimated GFR > 60 Fasting Glucose 101 H Calcium 8.9 Total Bilirubin 0.4 AST 17 ALT 12 Alkaline Phosphatase 88 Total Protein 6.1 L Albumin 3.8 [place] 0.45 L Imaging Radiology Impressions: ITS Impressions Brain MRI 07/22/22 12:58 IMPRESSION: - No acute intracranial findings. - There is global cerebral volume loss and there is mild chronic microangiopathy. Medications Medications Current Medications Acetaminophen (Acetaminophen 325 Mg Tablet) 650 mg PO Q6H PRN PRN Reason: Headache/Pain Mild Scale (1-3) Last Admin: 07/22/22 16:58 Dose: 650 mg Al Hydroxide/Mg Hydroxide (Magnesium Hydrox/Alum Hydrox 30 Ml Oral.Susp) 30 ml PO Q6H PRN PRN Reason: Heartburn/Nausea Aripiprazole (Aripiprazole 5 Mg Tablet) 5 mg PO DAILY [facility] Last Admin: 07/23/22 09:04 Dose: 5 mg Azathioprine (Azathioprine 50 Mg Tablet) 100 mg PO DAILY [facility] Last Admin: 07/23/22 09:04 Dose: 100 mg Carbidopa/Levodopa (Carbidopa/Levodopa 25/100 Tablet) 1 tab PO TID [facility] Last Admin: 07/23/22 09:04 Dose: 1 tab Folic Acid (Folic Acid 1 Mg Tablet) 1 mg PO DAILY [facility] Last Admin: 07/23/22 09:04 Dose: 1 mg [place] Carbonate ([place] Carbonate 300 Mg Tablet) 450 mg PO BEDTIME [facility] Last Admin: 07/22/22 21:55 Dose: 450 mg Loperamide HCl (Loperamide Hcl 2 Mg Capsule) 2 mg PO Q6H PRN PRN Reason: Diarrhea Last Admin: 07/21/22 15:36 Dose: 2 mg Magnesium Hydroxide (Milk Of Magnesia 30 Ml Oral.Susp) 30 ml PO DAILY PRN PRN Reason: Constipation Olanzapine (Olanzapine 5 Mg Tablet) 5 mg PO BEDTIME [facility] Last Admin: 07/22/22 21:55 Dose: 5 mg Oxybutynin Chloride (Oxybutynin Chloride Er 5 Mg Tab.Er.24) 10 mg PO DAILY [facility] Last Admin: 07/23/22 09:04 Dose: 10 mg Primidone (Primidone 50 Mg Tablet) 50 mg PO DAILY [facility] Last Admin: 07/23/22 09:04 Dose: 50 mg Quetiapine Fumarate (Quetiapine Fumarate 25 Mg Tablet) 25 mg PO BEDTIME PRN PRN Reason: Insomnia Trazodone HCl (Trazodone Hcl 50 Mg Tablet) 50 mg PO BEDTIME PRN PRN Reason: Insomnia Last Admin: 07/11/22 21:38 Dose: 50 mg Trazodone HCl (Trazodone Hcl 100 Mg Tablet) 100 mg PO BEDTIME [facility] Last Admin: 07/22/22 21:56 Dose: 100 mg Venlafaxine HCl (Venlafaxine Hcl Er 150 Mg Cap.Er.24h) 150 mg PO DAILY [facility] Last Admin: 07/23/22 09:04 Dose: 150 mg Allergies Allergies Allergy/AdvReac Type Severity Reaction Status Date / Time codeine Allergy Intermediate Rash Verified 07/07/22 14:40 Assessment & Plan Assessment & Plan (1) Major depressive disorder, recurrent episode with mood-congruent psychotic features: Status: Acute Code(s): F33.3 - Major depressive disorder, recurrent, severe with psychotic symptoms (2) Parkinsonian features: Status: Acute Code(s): R25.9 - Unspecified abnormal involuntary movements Plan pt with paranoid ideation computer broken into ongoing paranoid concerns so for not responding to ECT was changed bitemporal for psychotic depression monitor affects of ECT monitor for cognitive side effects try and review imaging from [place] brain imaging call placed to patient's outpatient psychiatrist me with discharge planning coordinating click care clarifying patient's history consider clozapine 07/20/2022 See ECT note case reviewed with [place] physicians discussed option of clozapine or olanzapine as Abilify discontinued. Patient had been stable on 7.5 mg of olanzapine previously number of years ago 07/21/2022 Patient showing some improve improvement less tremor increase olanzapine to 5 mg at bedtime brain MRI ordered head CT scan at [place] have been read by their radiology question of changes in the basal ganglion area 07/22 continue current t. 07/23: Continue current regimen and plans Reason for contiued inpatient stay Substantial Risk for: med/psych decompensation Time Spent With Patient Time: Total time managing care of this patient today ____ minutes.
[2022-07-23 18:00] VITALS: BP 158/82; PULSE 105; RESP 18; TEMP 36.2; O2SAT 98
[2022-07-23] MEDS: Lithium Carbonate 300 MG TABLET 450 MG PO (20:48)
[2022-07-23] MEDS: traZODone HCL 100 MG TABLET PO (20:48)
[2022-07-23] MEDS: OLANZapine 5 MG TABLET PO (20:48)
[2022-07-24 06:00] VITALS: BP 108/63; PULSE 67; RESP 14; TEMP 36.3; O2SAT 97
[2022-07-24] MEDS: azaTHIOprine 50 MG TABLET 100 MG PO (08:19)
[2022-07-24] MEDS: ARIPiprazole 5 MG TABLET PO (08:20)
[2022-07-24] MEDS: Folic Acid 1 MG TABLET PO (08:20)
[2022-07-24] MEDS: Venlafaxine HCl ER 150 MG CAP.ER.24H PO (08:20)
[2022-07-24] MEDS: Primidone 50 MG TABLET PO (08:20)
[2022-07-24] MEDS: Carbidopa/Levodopa 25/100 TABLET 1 TAB PO ×3 (08:20→20:18)
--- NOTE | 2022-07-24 11:10 | HO.PSYCHPN ---
Subjective Subjective Date of Service: 07/24/22 Reason For Visit: MDD Recurrent Severe w/Psychotic Features Subjective Notes: Conditional Voluntary Interim History: Patient was seen and discussed in rounds today. Records and plans were reviewed. He appears to be doing much better with improved affect. He is more animated and talkative. He is socializing. No complaints. No headaches. Eating and sleeping adequately. No changes were made today Medication Compliance: Yes Side effects from medications: No Attending Groups: Yes Mental Status Exam Mental Status Exam Narrative: In today's visit he is alert pleasant and interactive. He is oriented to self and place. Speech is more fluid. Good eye contact. Affect is much brighter than even yesterday. No signs of psychosis. No dangerous behaviors. No SI. Cognitively he has better and more fluid thought processes. Judgment is intact Diagnostics Vital Signs (24Hr): Vital Signs - 24 hr 07/23/22 18:00 07/24/22 06:00 Temperature 97.2 F 97.4 F Pulse Rate 105 H 67 Respiratory Rate 18 14 Blood Pressure 158/82 H 108/63 Pulse Oximetry 98 97 Oxygen Delivery Method Room Air Room Air BMI result Body Mass Index 30.5 Labs Results: 07/08/22 08:02 07/23/22 07:34 Labs: Laboratory Results - last 48 hr 07/23/22 07/23/22 07:34 07:34 Sodium 140 Potassium 5.2 H Chloride 106 Carbon Dioxide 28 Anion Gap 11 L BUN 15 Creatinine 1.09 Estim Creat Clear Calc 66.1 Estimated GFR > 60 Fasting Glucose 101 H Calcium 8.9 Total Bilirubin 0.4 AST 17 ALT 12 Alkaline Phosphatase 88 Total Protein 6.1 L Albumin 3.8 [place] 0.45 L Imaging Radiology Impressions: ITS Impressions Brain MRI 07/22/22 12:58 IMPRESSION: - No acute intracranial findings. - There is global cerebral volume loss and there is mild chronic microangiopathy. Medications Medications Current Medications Acetaminophen (Acetaminophen 325 Mg Tablet) 650 mg PO Q6H PRN PRN Reason: Headache/Pain Mild Scale (1-3) Last Admin: 07/22/22 16:58 Dose: 650 mg [place] Hydroxide/Mg Hydroxide (Magnesium Hydrox/Alum Hydrox 30 Ml Oral.Susp) 30 ml PO Q6H PRN PRN Reason: Heartburn/Nausea Aripiprazole (Aripiprazole 5 Mg Tablet) 5 mg PO DAILY [facility] Last Admin: 07/24/22 08:20 Dose: 5 mg Azathioprine (Azathioprine 50 Mg Tablet) 100 mg PO DAILY [facility] Last Admin: 07/24/22 08:19 Dose: 100 mg Carbidopa/Levodopa (Carbidopa/Levodopa 25/100 Tablet) 1 tab PO TID [facility] Last Admin: 07/24/22 08:20 Dose: 1 tab Folic Acid (Folic Acid 1 Mg Tablet) 1 mg PO DAILY [facility] Last Admin: 07/24/22 08:20 Dose: 1 mg [place] Carbonate ([place] Carbonate 300 Mg Tablet) 450 mg PO BEDTIME [facility] Last Admin: 07/23/22 20:48 Dose: 450 mg Loperamide HCl (Loperamide Hcl 2 Mg Capsule) 2 mg PO Q6H PRN PRN Reason: Diarrhea Last Admin: 07/21/22 15:36 Dose: 2 mg Magnesium Hydroxide (Milk Of Magnesia 30 Ml Oral.Susp) 30 ml PO DAILY PRN PRN Reason: Constipation Olanzapine (Olanzapine 5 Mg Tablet) 5 mg PO BEDTIME [facility] Last Admin: 07/23/22 20:48 Dose: 5 mg Oxybutynin Chloride (Oxybutynin Chloride Er 5 Mg Tab.Er.24) 10 mg PO DAILY [facility] Last Admin: 07/24/22 08:19 Dose: 10 mg Primidone (Primidone 50 Mg Tablet) 50 mg PO DAILY [facility] Last Admin: 07/24/22 08:20 Dose: 50 mg Quetiapine Fumarate (Quetiapine Fumarate 25 Mg Tablet) 25 mg PO BEDTIME PRN PRN Reason: Insomnia Trazodone HCl (Trazodone Hcl 50 Mg Tablet) 50 mg PO BEDTIME PRN PRN Reason: Insomnia Last Admin: 07/11/22 21:38 Dose: 50 mg Trazodone HCl (Trazodone Hcl 100 Mg Tablet) 100 mg PO BEDTIME [facility] Last Admin: 07/23/22 20:48 Dose: 100 mg Venlafaxine HCl (Venlafaxine Hcl Er 150 Mg Cap.Er.24h) 150 mg PO DAILY [facility] Last Admin: 07/24/22 08:20 Dose: 150 mg Allergies Allergies Allergy/AdvReac Type Severity Reaction Status Date / Time codeine Allergy Intermediate Rash Verified 07/07/22 14:40 Assessment & Plan Assessment & Plan (1) Major depressive disorder, recurrent episode with mood-congruent psychotic features: Status: Acute Code(s): F33.3 - Major depressive disorder, recurrent, severe with psychotic symptoms (2) Parkinsonian features: Status: Acute Code(s): R25.9 - Unspecified abnormal involuntary movements Plan pt with paranoid ideation computer broken into ongoing paranoid concerns so for not responding to ECT was changed bitemporal for psychotic depression monitor affects of ECT monitor for cognitive side effects try and review imaging from [place] brain imaging call placed to patient's outpatient psychiatrist me with discharge planning coordinating click care clarifying patient's history consider clozapine 07/20/2022 See ECT note case reviewed with [place] physicians discussed option of clozapine or olanzapine as Abilify discontinued. Patient had been stable on 7.5 mg of olanzapine previously number of years ago 07/21/2022 Patient showing some improve improvement less tremor increase olanzapine to 5 mg at bedtime brain MRI ordered head CT scan at [place] have been read by their radiology question of changes in the basal ganglion area 07/22 continue current t. 07/23: Continue current regimen and plans 07/24: Continue current regimen and plans Reason for contiued inpatient stay Substantial Risk for: med/psych decompensation Time Spent With Patient Time: Total time managing care of this patient today ____ minutes.
[2022-07-24 18:00] VITALS: BP 134/81; PULSE 97; RESP 16; TEMP 36.4; O2SAT 98
[2022-07-24] MEDS: OLANZapine 5 MG TABLET PO (20:18)
[2022-07-24] MEDS: traZODone HCL 100 MG TABLET PO (20:18)
[2022-07-25 06:00] VITALS: BP 134/63; PULSE 79; RESP 15; TEMP 36.2; O2SAT 97
[2022-07-25] MEDS: Folic Acid 1 MG TABLET PO (09:18)
[2022-07-25] MEDS: Venlafaxine HCl ER 150 MG CAP.ER.24H PO (09:19)
[2022-07-25] MEDS: Primidone 50 MG TABLET PO (09:19)
[2022-07-25] MEDS: azaTHIOprine 50 MG TABLET 100 MG PO (09:19)
[2022-07-25] MEDS: ARIPiprazole 5 MG TABLET PO (09:19)
[2022-07-25] MEDS: Carbidopa/Levodopa 25/100 TABLET 1 TAB PO ×3 (09:19→21:23)
--- NOTE | 2022-07-25 09:23 | HO.PSYCHPN ---
Subjective Subjective Date of Service: 07/25/22 Reason For Visit: MDD Recurrent Severe w/Psychotic Features Subjective Notes: Conditional Voluntary Interim History: Patient was seen and discussed in rounds today. Records and plans were reviewed. He continues to be doing better with improved affect. He is more verbal and interactive. He is hoping to finish up his ECT this weekend to be discharged by the end of the week. No complaints or side effects. No changes were made today Medication Compliance: Yes Side effects from medications: No Attending Groups: Yes Review of Systems Review of Systems Yes all other systems are reviewed and are negative Mental Status Exam Mental Status Exam Narrative: In today's visit he is alert pleasant and interactive. He is oriented to self and place. Speech is more fluid. Good eye contact. Affect is much brighter than even yesterday. No signs of psychosis. No dangerous behaviors. No SI. Cognitively he has better and more fluid thought processes. Judgment is intact Diagnostics Vital Signs (24Hr): Vital Signs - 24 hr 07/24/22 18:00 Temperature 97.6 F Pulse Rate 97 Respiratory Rate 16 Blood Pressure 134/81 Pulse Oximetry 98 Oxygen Delivery Method Room Air BMI result Body Mass Index 30.5 Labs Results: 07/08/22 08:02 07/23/22 07:34 Imaging Radiology Impressions: ITS Impressions Brain MRI 07/22/22 12:58 IMPRESSION: - No acute intracranial findings. - There is global cerebral volume loss and there is mild chronic microangiopathy. Medications Medications Current Medications Acetaminophen (Acetaminophen 325 Mg Tablet) 650 mg PO Q6H PRN PRN Reason: Headache/Pain Mild Scale (1-3) Last Admin: 07/22/22 16:58 Dose: 650 mg Al Hydroxide/Mg Hydroxide (Magnesium Hydrox/Alum Hydrox 30 Ml Oral.Susp) 30 ml PO Q6H PRN PRN Reason: Heartburn/Nausea Aripiprazole (Aripiprazole 5 Mg Tablet) 5 mg PO DAILY [facility] Last Admin: 07/25/22 09:19 Dose: 5 mg Azathioprine (Azathioprine 50 Mg Tablet) 100 mg PO DAILY [facility] Last Admin: 07/25/22 09:19 Dose: 100 mg Carbidopa/Levodopa (Carbidopa/Levodopa 25/100 Tablet) 1 tab PO TID [facility] Last Admin: 07/25/22 09:19 Dose: 1 tab Folic Acid (Folic Acid 1 Mg Tablet) 1 mg PO DAILY [facility] Last Admin: 07/25/22 09:18 Dose: 1 mg [place] Carbonate ([place] Carbonate 300 Mg Tablet) 450 mg PO BEDTIME [facility] Last Admin: 07/24/22 20:20 Dose: Not Given Loperamide HCl (Loperamide Hcl 2 Mg Capsule) 2 mg PO Q6H PRN PRN Reason: Diarrhea Last Admin: 07/21/22 15:36 Dose: 2 mg Magnesium Hydroxide (Milk Of Magnesia 30 Ml Oral.Susp) 30 ml PO DAILY PRN PRN Reason: Constipation Olanzapine (Olanzapine 5 Mg Tablet) 5 mg PO BEDTIME [facility] Last Admin: 07/24/22 20:18 Dose: 5 mg Oxybutynin Chloride (Oxybutynin Chloride Er 5 Mg Tab.Er.24) 10 mg PO DAILY [facility] Last Admin: 07/25/22 09:18 Dose: 10 mg Primidone (Primidone 50 Mg Tablet) 50 mg PO DAILY [facility] Last Admin: 07/25/22 09:19 Dose: 50 mg Quetiapine Fumarate (Quetiapine Fumarate 25 Mg Tablet) 25 mg PO BEDTIME PRN PRN Reason: Insomnia Trazodone HCl (Trazodone Hcl 50 Mg Tablet) 50 mg PO BEDTIME PRN PRN Reason: Insomnia Last Admin: 07/11/22 21:38 Dose: 50 mg Trazodone HCl (Trazodone Hcl 100 Mg Tablet) 100 mg PO BEDTIME [facility] Last Admin: 07/24/22 20:18 Dose: 100 mg Venlafaxine HCl (Venlafaxine Hcl Er 150 Mg Cap.Er.24h) 150 mg PO DAILY [facility] Last Admin: 07/25/22 09:19 Dose: 150 mg Allergies Allergies Allergy/AdvReac Type Severity Reaction Status Date / Time codeine Allergy Intermediate Rash Verified 07/07/22 14:40 Assessment & Plan Assessment & Plan (1) Major depressive disorder, recurrent episode with mood-congruent psychotic features: Status: Acute Code(s): F33.3 - Major depressive disorder, recurrent, severe with psychotic symptoms (2) Parkinsonian features: Status: Acute Code(s): R25.9 - Unspecified abnormal involuntary movements Plan pt with paranoid ideation computer broken into ongoing paranoid concerns so for not responding to ECT was changed bitemporal for psychotic depression monitor affects of ECT monitor for cognitive side effects try and review imaging from [place] brain imaging call placed to patient's outpatient psychiatrist me with discharge planning coordinating click care clarifying patient's history consider clozapine 07/20/2022 See ECT note case reviewed with [facility] discussed option of clozapine or olanzapine as Abilify discontinued. Patient had been stable on 7.5 mg of olanzapine previously number of years ago 07/21/2022 Patient showing some improve improvement less tremor increase olanzapine to 5 mg at bedtime brain MRI ordered head CT scan at [place] have been read by their radiology question of changes in the basal ganglion area 07/22 continue current t. 07/23: Continue current regimen and plans 07/24: Continue current regimen and plans 07/25: Continue current regimen and plans Reason for contiued inpatient stay Substantial Risk for: med/psych decompensation Time Spent With Patient Time: Total time managing care of this patient today ____ minutes.
[2022-07-25 18:00] VITALS: BP 121/73; PULSE 76; RESP 14; TEMP 36.6; O2SAT 97
[2022-07-25] MEDS: Lithium Carbonate 300 MG TABLET 450 MG PO (21:22)
[2022-07-25] MEDS: traZODone HCL 100 MG TABLET PO (21:23)
[2022-07-25] MEDS: OLANZapine 5 MG TABLET PO (21:23)
[2022-07-26 08:50] VITALS: BP 109/74; PULSE 88; RESP 16; TEMP 36.6; O2SAT 97
[2022-07-26] MEDS: Folic Acid 1 MG TABLET PO (08:53)
[2022-07-26] MEDS: azaTHIOprine 50 MG TABLET 100 MG PO (08:53)
[2022-07-26] MEDS: Primidone 50 MG TABLET PO (08:54)
[2022-07-26] MEDS: ARIPiprazole 5 MG TABLET PO (08:54)
[2022-07-26] MEDS: Venlafaxine HCl ER 150 MG CAP.ER.24H PO (08:54)
[2022-07-26] MEDS: Carbidopa/Levodopa 25/100 TABLET 1 TAB PO ×3 (08:54→21:28)
--- NOTE | 2022-07-26 11:36 | P.PNPSI_ITS ---
Subjective Subjective Date of Service: 07/26/22 Reason For Visit: MDD Recurrent Severe w/Psychotic Features Subjective Notes: Conditional Voluntary Interim History: The nursing staff reported the patient had been compliant with treatment, he looks less depressed even though that he has affect is flat but he is being more engageable. The occupational therapist reports that he goes to some groups. The staff has noticed that his reported an improvement of his mood with ECT. On interview we discussed the patient treatment goals and he agreed to discontinue Abilify that causes more involuntary movements and increase Zyprexa up to 7.5 mg p.o. q.h.s. that historically has worked for him. He looks clinically much better. Mental Status Exam Mental Status Exam Patient Appearance: Well Grooomed Patient Orientation: Person and Situation Level of Consciousness: Awake and Appropriate Patient Behavior: Guarded and Passive Mood Description: Depressed Affect Description: Constricted Patient Cognition Impaired: Yes Ability to Follow Directions: Good Speech Pattern: Clear Hallucinations: None Delusions: Paranoid Ideation Thought Process: Distracted Thought Content: positive for [place] and positive for Poverty of Content Judgement: Fair Diagnostics Vital Signs (24Hr): Vital Signs - 24 hr 07/25/22 18:00 07/26/22 08:50 Temperature 97.9 F 97.9 F Pulse Rate 76 88 Respiratory Rate 14 16 Blood Pressure 121/73 109/74 Pulse Oximetry 97 97 Oxygen Delivery Method Room Air Room Air BMI result Body Mass Index 30.5 Labs Results: 07/08/22 08:02 07/23/22 07:34 Imaging Radiology Impressions: ITS Impressions Brain MRI 07/22/22 12:58 IMPRESSION: - No acute intracranial findings. - There is global cerebral volume loss and there is mild chronic microangiopathy. Medications Medications Current Medications Acetaminophen (Acetaminophen 325 Mg Tablet) 650 mg PO Q6H PRN PRN Reason: Headache/Pain Mild Scale (1-3) Last Admin: 07/22/22 16:58 Dose: 650 mg Al Hydroxide/Mg Hydroxide (Magnesium Hydrox/Alum Hydrox 30 Ml Oral.Susp) 30 ml PO Q6H PRN PRN Reason: Heartburn/Nausea Azathioprine (Azathioprine 50 Mg Tablet) 100 mg PO DAILY [facility] Last Admin: 07/26/22 08:53 Dose: 100 mg Carbidopa/Levodopa (Carbidopa/Levodopa 25/100 Tablet) 1 tab PO TID [facility] Last Admin: 07/26/22 08:54 Dose: 1 tab Folic Acid (Folic Acid 1 Mg Tablet) 1 mg PO DAILY [facility] Last Admin: 07/26/22 08:53 Dose: 1 mg [place] Carbonate ([place] Carbonate 300 Mg Tablet) 450 mg PO BEDTIME [facility] Last Admin: 07/25/22 21:22 Dose: 450 mg Loperamide HCl (Loperamide Hcl 2 Mg Capsule) 2 mg PO Q6H PRN PRN Reason: Diarrhea Last Admin: 07/21/22 15:36 Dose: 2 mg Magnesium Hydroxide (Milk Of Magnesia 30 Ml Oral.Susp) 30 ml PO DAILY PRN PRN Reason: Constipation Olanzapine (Olanzapine 7.5 Mg Tablet) 7.5 mg PO BEDTIME [facility] Oxybutynin Chloride (Oxybutynin Chloride Er 5 Mg Tab.Er.24) 10 mg PO DAILY [facility] Last Admin: 07/26/22 08:54 Dose: 10 mg Primidone (Primidone 50 Mg Tablet) 50 mg PO DAILY [facility] Last Admin: 07/26/22 08:54 Dose: 50 mg Quetiapine Fumarate (Quetiapine Fumarate 25 Mg Tablet) 25 mg PO BEDTIME PRN PRN Reason: Insomnia Trazodone HCl (Trazodone Hcl 50 Mg Tablet) 50 mg PO BEDTIME PRN PRN Reason: Insomnia Last Admin: 07/11/22 21:38 Dose: 50 mg Trazodone HCl (Trazodone Hcl 100 Mg Tablet) 100 mg PO BEDTIME [facility] Last Admin: 07/25/22 21:23 Dose: 100 mg Venlafaxine HCl (Venlafaxine Hcl Er 150 Mg Cap.Er.24h) 150 mg PO DAILY [facility] Last Admin: 07/26/22 08:54 Dose: 150 mg Allergies Allergies Allergy/AdvReac Type Severity Reaction Status Date / Time codeine Allergy Intermediate Rash Verified 07/07/22 14:40 Assessment & Plan Assessment & Plan (1) Major depressive disorder, recurrent episode with mood-congruent psychotic features: Status: Acute Code(s): F33.3 - Major depressive disorder, recurrent, severe with psychotic symptoms (2) Parkinsonian features: Status: Acute Code(s): R25.9 - Unspecified abnormal involuntary movements Plan pt with paranoid ideation computer broken into ongoing paranoid concerns so for not responding to ECT was changed bitemporal for psychotic depression monitor affects of ECT monitor for cognitive side effects try and review imaging from [place] brain imaging call placed to patient's outpatient psychiatrist me with discharge planning coordinating click care clarifying patient's history consider clozapine Plan 1. Continue ECT as per protocol. 2. Discontinue Abilify today. 3. Increase Zyprexa up to 7.5 mg p.o. q.h.s. that historically has worked for him. 4. We will schedule a new family meeting pretty soon. We are aiming for discharge at the end of the week if the patient continues to improve. Reason for contiued inpatient stay Substantial Risk for: inability to function, rapid decompensation and med/psych decompensation Time Spent With Patient Time: Total time managing care of this patient today _20___ minutes.
[2022-07-26 18:00] VITALS: BP 127/62; PULSE 78; RESP 18; TEMP 36.8; O2SAT 97
[2022-07-26] MEDS: OLANZapine 7.5 MG TABLET PO (21:28)
[2022-07-26] MEDS: traZODone HCL 100 MG TABLET PO (21:28)
[2022-07-27] VITALS (9 sets, daily range): BP systolic 114–140; BP diastolic 49–84; PULSE 70–90; RESP 16–20; TEMP 36.4–37.2; O2SAT 93–98
--- NOTE | 2022-07-27 07:28 | MHC.SHP ---
Pre-Procedural Eval Section A Date of Service: 07/27/22 The patient is an INPATIENT: Yes Changes since office visit: Yes Changes in Medication and Yes Patient answered all questions; No Cold of Flu in the past 2 weeks and No New Medical Problems The History & Physical has been completed within 30 days and I have reviewed it.: Yes Section B Chief Complaint: MDD Recurrent Severe w/Psychotic Features Allergies: Allergies Allergy/AdvReac Type Severity Reaction Status Date / Time codeine Allergy Intermediate Rash Verified 07/07/22 14:40 Plan I have reviewed the history and physical and performed a pertinent physical examination on my patient. No changes have occurred unless specified. Time Spent With Patient Time: Total time managing care of this patient today ____ minutes.
--- NOTE | 2022-07-27 07:29 | HO.ECTPROC ---
ECT Procedure Note Diagnosis/Treatment Date of Service: 07/27/22 Diagnosis: Major Depressive Disorder Previous ECT Date: 07/25/22 Current Treatment Number: 7 Treatment: Series Interval Clinical Notes: Patient tolerating ECT well mood much improved denies current concerns re computers Time: Total time managing care of this patient today ____ minutes. ECT Settings Device: THYMATRON DGx Electrode Placement: Bitemporal Program/Pulse Width: 0.50 Energy Percent: 100 Seizure Duration By EEG (in seconds): 14 Medications Administration General Anesthetic: Etomidate (12) Muscle Relaxant: Succinylcholine (120) Ancillary Medications Anti-emetics: Zofran - Pre ECT Miscillaneous Medications: Propofol Airway Management Airway Management: Bag Mask Ventilation Treatment Recommendations No Changes Recommended: No change Notes: unclear why shorter sz cont series Pt Tolerated Procedure w/o Issue: Yes
--- NOTE | 2022-07-27 07:45 | P.CONAN_ITS ---
[facility] Active Problems Active Problems: All Active Problems (Updated 07/07/22 @ 17:49 by TRUE Lebron) Routine medical exam (Acute) Major depressive disorder, recurrent episode with mood-congruent psychotic features (Acute) Hypothyroidism (Acute) Vitamin B12 deficiency (Acute) Parkinsonian features (Acute) Crohn's disease (Acute) Past Medical History Medical History Crohn's disease Hypothyroidism Major depressive disorder, recurrent episode with mood-congruent psychotic features Osteoarthritis Parkinsonian features Vitamin B12 deficiency Functional capacity: independent ambulation Family History Family History Father Stomach cancer Mother Dementia Family history of problems with anesthesia: No Surgical History Surgical History S/P small bowel resection History of Problems with Anesthesia: No Social History Social History Household Members: Spouse Housing: House Do you presently have visiting nurse or other home services: No Patient Tobacco Use Status: Never used Tobacco service: Yes Sexual orientation: Straight/Heterosexual Meds Allergies Allergy/AdvReac Type Severity Reaction Status Date / Time codeine Allergy Intermediate Rash Verified 07/07/22 14:40 Active Medications: Current Medications Acetaminophen (Acetaminophen 325 Mg Tablet) 650 mg PO Q6H PRN PRN Reason: Headache/Pain Mild Scale (1-3) Last Admin: 07/22/22 16:58 Dose: 650 mg Al Hydroxide/Mg Hydroxide (Magnesium Hydrox/Alum Hydrox 30 Ml Oral.Susp) 30 ml PO Q6H PRN PRN Reason: Heartburn/Nausea Azathioprine (Azathioprine 50 Mg Tablet) 100 mg PO DAILY [facility] Last Admin: 07/26/22 08:53 Dose: 100 mg Carbidopa/Levodopa (Carbidopa/Levodopa 25/100 Tablet) 1 tab PO TID KATHRYN Last Admin: 07/26/22 21:28 Dose: 1 tab Folic Acid (Folic Acid 1 Mg Tablet) 1 mg PO DAILY [facility] Last Admin: 07/26/22 08:53 Dose: 1 mg [place] Carbonate ([place] Carbonate 300 Mg Tablet) 450 mg PO BEDTIME KATHRYN Last Admin: 12/27/22 21:30 Dose: Not Given Loperamide HCl (Loperamide Hcl 2 Mg Capsule) 2 mg PO Q6H PRN PRN Reason: Diarrhea Last Admin: 07/21/22 15:36 Dose: 2 mg Magnesium Hydroxide (Milk Of Magnesia 30 Ml Oral.Susp) 30 ml PO DAILY PRN PRN Reason: Constipation Olanzapine (Olanzapine 7.5 Mg Tablet) 7.5 mg PO BEDTIME KAT[facility] Last Admin: 07/26/22 21:28 Dose: 7.5 mg Oxybutynin Chloride (Oxybutynin Chloride Er 5 Mg Tab.Er.24) 10 mg PO DAILY [facility] Last Admin: 07/26/22 08:54 Dose: 10 mg Primidone (Primidone 50 Mg Tablet) 50 mg PO DAILY [facility] Last Admin: 07/26/22 08:54 Dose: 50 mg Quetiapine Fumarate (Quetiapine Fumarate 25 Mg Tablet) 25 mg PO BEDTIME PRN PRN Reason: Insomnia Trazodone HCl (Trazodone Hcl 50 Mg Tablet) 50 mg PO BEDTIME PRN PRN Reason: Insomnia Last Admin: 07/11/22 21:38 Dose: 50 mg Trazodone HCl (Trazodone Hcl 100 Mg Tablet) 100 mg PO BEDTIME KAT[facility] Last Admin: 07/26/22 21:28 Dose: 100 mg Venlafaxine HCl (Venlafaxine Hcl Er 150 Mg Cap.Er.24h) 150 mg PO DAILY [facility] Last Admin: 07/26/22 08:54 Dose: 150 mg Exam Exam Date and Time: July 27, 2022 0745 Height,Weight and Vital Signs: Height 5 ft 8 in Weight 91.172 kg Last Vital Signs Temp 97.6 F 07/27/22 06:41 Pulse 70 07/27/22 06:41 Resp 18 07/27/22 06:41 BP 124/74 07/27/22 06:41 Pulse Ox 96 07/27/22 06:41 O2 Del Method 07/27/22 06:41 O2 Flow Rate 2 07/22/22 08:02 Pertinent Lab Results Pertinent Lab Results: Laboratory Tests 07/07/22 07/08/22 07/08/22 15:02 08:02 08:02 WBC 5.4 RBC 4.11 L Hgb 13.8 L Hct 40.8 L MCV 99.3 H MCH 33.6 H MCHC 33.8 RDW 12.4 Plt Count 236 MPV 9.5 Immature Gran % (Auto) 0.4 Neut % (Auto) 65.0 Lymph % (Auto) 22.9 [place] % (Auto) 8.0 Eos % (Auto) 3.0 Baso % (Auto) 0.7 Lymph # (Auto) 1.2 [place] # (Auto) 0.4 Eos # (Auto) 0.2 Baso # (Auto) 0.0 Abs Immat Gran (auto) 0.02 Absolute Neuts (auto) 3.5 Absolute Nucleated RBC 0.000 Nucleated RBC % (auto) 0.0 Sodium 137 Potassium 4.6 Chloride 105 Carbon Dioxide 26 Anion Gap 11 L BUN 12 Creatinine 0.88 Estim Creat Clear Calc TNP Estimated GFR > 60 Fasting Glucose 107 H Estimat Average Glucose Hemoglobin A1c % Calcium 9.1 Total Bilirubin 0.4 AST 14 ALT 13 Alkaline Phosphatase 81 Total Protein 6.5 Albumin 4.1 Triglycerides 181 Cholesterol 168 LDL Cholesterol, Calc 98 HDL Cholesterol 34 Vitamin B12 Folate TSH 4.21 H Free T4 0.96 [place] 0.86 07/08/22 07/08/22 07/23/22 08:02 08:02 07:34 WBC RBC Hgb Hct MCV MCH MCHC RDW Plt Count MPV Immature Gran % (Auto) Neut % (Auto) Lymph % (Auto) [place] % (Auto) Eos % (Auto) Baso % (Auto) Lymph # (Auto) [place] # (Auto) Eos # (Auto) Baso # (Auto) Abs Immat Gran (auto) Absolute Neuts (auto) Absolute Nucleated RBC Nucleated RBC % (auto) Sodium 140 Potassium 5.2 H Chloride 106 Carbon Dioxide 28 Anion Gap 11 L BUN 15 Creatinine 1.09 Estim Creat Clear Calc 66.1 Estimated GFR > 60 Fasting Glucose 101 H Estimat Average Glucose 108 Hemoglobin A1c % 5.4 Calcium 8.9 Total Bilirubin 0.4 AST 17 ALT 12 Alkaline Phosphatase 88 Total Protein 6.1 L Albumin 3.8 Triglycerides Cholesterol LDL Cholesterol, Calc HDL Cholesterol Vitamin B12 746 Folate 18.9 TSH Free T4 [place] 07/23/22 07:34 WBC RBC Hgb Hct MCV MCH MCHC RDW Plt Count MPV Immature Gran % (Auto) Neut % (Auto) Lymph % (Auto) [place] % (Auto) Eos % (Auto) Baso % (Auto) Lymph # (Auto) [place] # (Auto) Eos # (Auto) Baso # (Auto) Abs Immat Gran (auto) Absolute Neuts (auto) Absolute Nucleated RBC Nucleated RBC % (auto) Sodium Potassium Chloride Carbon Dioxide Anion Gap BUN Creatinine Estim Creat Clear Calc Estimated GFR Fasting Glucose Estimat Average Glucose Hemoglobin A1c % Calcium Total Bilirubin AST ALT Alkaline Phosphatase Total Protein Albumin Triglycerides Cholesterol LDL Cholesterol, Calc HDL Cholesterol Vitamin B12 Folate TSH Free T4 [place] 0.45 L Airway Mallampati Class: III TM Dist: >3cm Neck ROM: Full Assessment and Plan Assessment Anesthesia Assessment: Anesthesia Plan Discussed and Chart Reviewed Final Anesthetic Review Family History of Problems with Anesthesia: No History of Problems with Anesthesia: No NPO: Yes ASA Class: III Final Preanesthetic Review: No Changes in Pt Med Stat, Meds/Allgs Chart Reviewed, Consent Obtained/Reviewed and Anes Risks/Benef Reviewed Patient Risk: Intermediate Procedure Risk: Intermediate Anesthetic Plan Anesthetic Plan: GA Disposition: Standard PACU
[2022-07-27] MEDS: azaTHIOprine 50 MG TABLET 100 MG PO (09:23)
[2022-07-27] MEDS: Venlafaxine HCl ER 150 MG CAP.ER.24H PO (09:23)
[2022-07-27] MEDS: Folic Acid 1 MG TABLET PO (09:23)
[2022-07-27] MEDS: Carbidopa/Levodopa 25/100 TABLET 1 TAB PO ×3 (09:24→20:08)
[2022-07-27] MEDS: Acetaminophen 325 MG TABLET 650 MG PO (09:30)
[2022-07-27] MEDS: OLANZapine 7.5 MG TABLET PO (20:07)
[2022-07-27] MEDS: traZODone HCL 100 MG TABLET PO (20:07)
[2022-07-27] MEDS: Lithium Carbonate 300 MG TABLET 450 MG PO (20:08)
--- NOTE | 2022-07-27 22:34 | HO.PSYCHPN ---
Subjective Subjective Date of Service: 07/27/22 Reason For Visit: MDD Recurrent Severe w/Psychotic Features Subjective Notes: Conditional Voluntary Interim History: pt showing greater improvement harding affect changed to olanzapine Diagnostics Vital Signs (24Hr): Vital Signs - 24 hr 07/27/22 05:50 07/27/22 06:41 07/27/22 07:59 Temperature 98.5 F 97.6 F Pulse Rate 74 70 90 Respiratory Rate 17 18 20 Blood Pressure 114/64 124/74 136/83 Pulse Oximetry 96 96 93 Oxygen Delivery Method Room Air Nasal Cannula Oxygen Flow Rate 4 07/27/22 08:04 07/27/22 08:09 07/27/22 08:14 Temperature Pulse Rate 90 83 82 Respiratory Rate 20 20 20 Blood Pressure 119/55 L 132/51 L 132/49 L Pulse Oximetry 94 97 94 Oxygen Delivery Method Nasal Cannula Room Air Room Air Oxygen Flow Rate 3 07/27/22 08:29 07/27/22 09:20 Temperature 98.4 F 99.0 F Pulse Rate 76 78 Respiratory Rate 20 16 Blood Pressure 122/59 L 140/84 H Pulse Oximetry 95 98 Oxygen Delivery Method Room Air Oxygen Flow Rate BMI result Body Mass Index 30.5 Labs Results: 07/08/22 08:02 07/23/22 07:34 Imaging Radiology Impressions: ITS Impressions Brain MRI 07/22/22 12:58 IMPRESSION: - No acute intracranial findings. - There is global cerebral volume loss and there is mild chronic microangiopathy. Medications Medications Current Medications Acetaminophen (Acetaminophen 325 Mg Tablet) 650 mg PO Q6H PRN PRN Reason: Headache/Pain Mild Scale (1-3) Last Admin: 07/27/22 09:30 Dose: 650 mg Al Hydroxide/Mg Hydroxide (Magnesium Hydrox/Alum Hydrox 30 Ml Oral.Susp) 30 ml PO Q6H PRN PRN Reason: Heartburn/Nausea Azathioprine (Azathioprine 50 Mg Tablet) 100 mg PO DAILY [facility] Last Admin: 07/27/22 09:23 Dose: 100 mg Carbidopa/Levodopa (Carbidopa/Levodopa 25/100 Tablet) 1 tab PO TID KATHRYN Last Admin: 07/27/22 20:08 Dose: 1 tab Folic Acid (Folic Acid 1 Mg Tablet) 1 mg PO DAILY [facility] Last Admin: 07/27/22 09:23 Dose: 1 mg [place] Carbonate ([place] Carbonate 300 Mg Tablet) 450 mg PO BEDTIME KATHRYN Last Admin: 07/27/22 20:08 Dose: 450 mg Loperamide HCl (Loperamide Hcl 2 Mg Capsule) 2 mg PO Q6H PRN PRN Reason: Diarrhea Last Admin: 07/21/22 15:36 Dose: 2 mg Magnesium Hydroxide (Milk Of Magnesia 30 Ml Oral.Susp) 30 ml PO DAILY PRN PRN Reason: Constipation Olanzapine (Olanzapine 7.5 Mg Tablet) 7.5 mg PO BEDTIME [facility] Last Admin: 07/27/22 20:07 Dose: 7.5 mg Oxybutynin Chloride (Oxybutynin Chloride Er 5 Mg Tab.Er.24) 10 mg PO DAILY [facility] Last Admin: 07/27/22 09:24 Dose: 10 mg Quetiapine Fumarate (Quetiapine Fumarate 25 Mg Tablet) 25 mg PO BEDTIME PRN PRN Reason: Insomnia Trazodone HCl (Trazodone Hcl 50 Mg Tablet) 50 mg PO BEDTIME PRN PRN Reason: Insomnia Last Admin: 07/11/22 21:38 Dose: 50 mg Trazodone HCl (Trazodone Hcl 100 Mg Tablet) 100 mg PO BEDTIME KATHRYN Last Admin: 07/27/22 20:07 Dose: 100 mg Venlafaxine HCl (Venlafaxine Hcl Er 150 Mg Cap.Er.24h) 150 mg PO DAILY [facility] Last Admin: 07/27/22 09:23 Dose: 150 mg Allergies Allergies Allergy/AdvReac Type Severity Reaction Status Date / Time codeine Allergy Intermediate Rash Verified 07/07/22 14:40 Assessment & Plan Assessment & Plan (1) Major depressive disorder, recurrent episode with mood-congruent psychotic features: Status: Acute Code(s): F33.3 - Major depressive disorder, recurrent, severe with psychotic symptoms (2) Parkinsonian features: Status: Acute Code(s): R25.9 - Unspecified abnormal involuntary movements Plan pt with paranoid ideation computer broken into ongoing paranoid concerns so for not responding to ECT was changed bitemporal for psychotic depression monitor affects of ECT monitor for cognitive side effects try and review imaging from [place] brain imaging call placed to patient's outpatient psychiatrist me with discharge planning coordinating click care clarifying patient's history consider clozapine Plan 1. Continue ECT as per protocol. 2. Discontinue Abilify today. 3. Increase Zyprexa up to 7.5 mg p.o. q.h.s. that historically has worked for him. 4. We will schedule a new family meeting pretty soon. We are aiming for discharge at the end of the week if the patient continues to improve. 07/27/22 pt showing improvement see ect note Patient educated on: medication risk/benefits and ECT Informed Consent: understands Reason for contiued inpatient stay Substantial Risk for: harm to self and rapid decompensation Time Spent With Patient Time: Total time managing care of this patient today ____ minutes.
[2022-07-28 06:00] VITALS: BP 128/70; PULSE 82; TEMP 36.7; O2SAT 98
[2022-07-28] MEDS: Folic Acid 1 MG TABLET PO (10:58)
[2022-07-28] MEDS: Carbidopa/Levodopa 25/100 TABLET 1 TAB PO ×3 (10:58→21:14)
[2022-07-28] MEDS: Venlafaxine HCl ER 150 MG CAP.ER.24H PO (10:58)
[2022-07-28] MEDS: azaTHIOprine 50 MG TABLET 100 MG PO (10:59)
[2022-07-28 11:00] VITALS: BMI 31.8
[2022-07-28] MEDS: Acetaminophen 325 MG TABLET 650 MG PO (13:16)
--- NOTE | 2022-07-28 16:06 | P.PNPSI_ITS ---
Subjective Subjective Date of Service: 07/28/22 Reason For Visit: MDD Recurrent Severe w/Psychotic Features Subjective Notes: Conditional Voluntary Interim History: The nursing staff reported the patient slept very well, he had been fully compliant with treatment. The staff has noticed that he has been socializing the milieu with other peers. On interview the patient denies new symptoms he feels okay he feels that he has improved with ECT. We will discharge him tomorrow morning with follow-up with ECT as an outpatient. Mental Status Exam Mental Status Exam Patient Appearance: Well Grooomed Patient Orientation: Person and Situation Level of Consciousness: Awake and Appropriate Patient Behavior: Guarded and Passive Mood Description: Calm Affect Description: Constricted Patient Cognition Impaired: Yes Ability to Follow Directions: Good Speech Pattern: Clear Hallucinations: None Delusions: Paranoid Ideation Thought Process: Distracted and Linear Thought Content: positive for Ethel and positive for Circumstantial Judgement: Fair Diagnostics Vital Signs (24Hr): Vital Signs - 24 hr 07/27/22 18:00 07/28/22 06:00 Temperature 98.6 F 98.0 F Pulse Rate 77 82 Respiratory Rate 18 Blood Pressure 126/68 128/70 Pulse Oximetry 95 98 Oxygen Delivery Method Room Air BMI result Body Mass Index 31.8 Labs Results: 07/08/22 08:02 07/23/22 07:34 Imaging Radiology Impressions: ITS Impressions Brain MRI 07/22/22 12:58 IMPRESSION: - No acute intracranial findings. - There is global cerebral volume loss and there is mild chronic microangiopathy. Medications Medications Current Medications Acetaminophen (Acetaminophen 325 Mg Tablet) 650 mg PO Q6H PRN PRN Reason: Headache/Pain Mild Scale (1-3) Last Admin: 07/28/22 13:16 Dose: 650 mg Al Hydroxide/Mg Hydroxide (Magnesium Hydrox/Alum Hydrox 30 Ml Oral.Susp) 30 ml PO Q6H PRN PRN Reason: Heartburn/Nausea Azathioprine (Azathioprine 50 Mg Tablet) 100 mg PO DAILY [facility] Last Admin: 07/28/22 10:59 Dose: 100 mg Carbidopa/Levodopa (Carbidopa/Levodopa 25/100 Tablet) 1 tab PO TID [facility] Last Admin: 07/28/22 14:26 Dose: 1 tab Folic Acid (Folic Acid 1 Mg Tablet) 1 mg PO DAILY [facility] Last Admin: 07/28/22 10:58 Dose: 1 mg [place] Carbonate ([place] Carbonate 300 Mg Tablet) 450 mg PO BEDTIME KATHRYN Last Admin: 07/27/22 20:08 Dose: 450 mg Loperamide HCl (Loperamide Hcl 2 Mg Capsule) 2 mg PO Q6H PRN PRN Reason: Diarrhea Last Admin: 07/21/22 15:36 Dose: 2 mg Magnesium Hydroxide (Milk Of Magnesia 30 Ml Oral.Susp) 30 ml PO DAILY PRN PRN Reason: Constipation Olanzapine (Olanzapine 7.5 Mg Tablet) 7.5 mg PO BEDTIME KATHR[facility] Last Admin: 07/27/22 20:07 Dose: 7.5 mg Oxybutynin Chloride (Oxybutynin Chloride Er 5 Mg Tab.Er.24) 10 mg PO DAILY [facility] Last Admin: 07/28/22 10:58 Dose: 10 mg Quetiapine Fumarate (Quetiapine Fumarate 25 Mg Tablet) 25 mg PO BEDTIME PRN PRN Reason: Insomnia Trazodone HCl (Trazodone Hcl 50 Mg Tablet) 50 mg PO BEDTIME PRN PRN Reason: Insomnia Last Admin: 07/11/22 21:38 Dose: 50 mg Trazodone HCl (Trazodone Hcl 100 Mg Tablet) 100 mg PO BEDTIME KATHRYN Last Admin: 07/27/22 20:07 Dose: 100 mg Venlafaxine HCl (Venlafaxine Hcl Er 150 Mg Cap.Er.24h) 150 mg PO DAILY [facility] Last Admin: 07/28/22 10:58 Dose: 150 mg Allergies Allergies Allergy/AdvReac Type Severity Reaction Status Date / Time codeine Allergy Intermediate Rash Verified 07/07/22 14:40 Assessment & Plan Assessment & Plan (1) Major depressive disorder, recurrent episode with mood-congruent psychotic features: Status: Acute Code(s): F33.3 - Major depressive disorder, recurrent, severe with psychotic symptoms (2) Parkinsonian features: Status: Acute Code(s): R25.9 - Unspecified abnormal involuntary movements Plan pt with paranoid ideation computer broken into ongoing paranoid concerns so for not responding to ECT was changed bitemporal for psychotic depression monitor affects of ECT monitor for cognitive side effects try and review imaging from [place] brain imaging call placed to patient's outpatient psychiatrist me with discharge planning coordinating click care clarifying patient's history consider clozapine Plan 1. Continue ECT as per protocol. 2. Discontinue Abilify today. 3. Increase Zyprexa up to 7.5 mg p.o. q.h.s. that historically has worked for him. 4. We will schedule a new family meeting pretty soon. We are aiming for discharge at the end of the week if the patient continues to improve. 07/27/22 pt showing improvement see ect note Reason for contiued inpatient stay Substantial Risk for: inability to function, rapid decompensation and med/psych decompensation Time Spent With Patient Time: Total time managing care of this patient today __20__ minutes.
[2022-07-28 19:20] VITALS: BP 134/75; PULSE 81; RESP 18; TEMP 36.7; O2SAT 96
[2022-07-28] MEDS: OLANZapine 7.5 MG TABLET PO (21:14)
[2022-07-28] MEDS: traZODone HCL 100 MG TABLET PO (21:14)
[2022-07-29] VITALS (8 sets, daily range): BP systolic 123–163; BP diastolic 66–96; PULSE 69–93; RESP 12–20; TEMP 36.4–37.1; O2SAT 90–98
--- NOTE | 2022-07-29 08:18 | MHC.SHP ---
Pre-Procedural Eval Section A Date of Service: 07/29/22 The patient is an INPATIENT: Yes Changes since office visit: Yes Changes in Medication and Yes Patient answered all questions; No Cold of Flu in the past 2 weeks and No New Medical Problems The History & Physical has been completed within 30 days and I have reviewed it.: Yes Section B Chief Complaint: MDD Recurrent Severe w/Psychotic Features Allergies: Allergies Allergy/AdvReac Type Severity Reaction Status Date / Time codeine Allergy Intermediate Rash Verified 07/07/22 14:40 Plan I have reviewed the history and physical and performed a pertinent physical examination on my patient. No changes have occurred unless specified. Time Spent With Patient Time: Total time managing care of this patient today ____ minutes.
--- NOTE | 2022-07-29 08:20 | HO.ANESPROP2 ---
HPI - Anesthesia Eval Consult details Narrative: 72 yo male patient for ECT PMFSH Active Problems Active Problems: All Active Problems (Updated 07/07/22 @ 17:49 by TRUE Lebron) Routine medical exam (Acute) Major depressive disorder, recurrent episode with mood-congruent psychotic features (Acute) Hypothyroidism (Acute) Vitamin B12 deficiency (Acute) Parkinsonian features (Acute) Crohn's disease (Acute) Past Medical History Medical History Crohn's disease Hypothyroidism Major depressive disorder, recurrent episode with mood-congruent psychotic features Osteoarthritis Parkinsonian features Vitamin B12 deficiency Functional capacity: independent ambulation Family History Family History Father Stomach cancer Mother Dementia Family history of problems with anesthesia: No Surgical History Surgical History S/P small bowel resection History of Problems with Anesthesia: No Social History Social History Household Members: Spouse Housing: House Do you presently have visiting nurse or other home services: No Patient Tobacco Use Status: Never used Tobacco service: Yes Sexual orientation: Straight/Heterosexual Meds Allergies Allergy/AdvReac Type Severity Reaction Status Date / Time codeine Allergy Intermediate Rash Verified 07/07/22 14:40 Active Medications: Current Medications Acetaminophen (Acetaminophen 325 Mg Tablet) 650 mg PO Q6H PRN PRN Reason: Headache/Pain Mild Scale (1-3) Last Admin: 07/28/22 13:16 Dose: 650 mg Al Hydroxide/Mg Hydroxide (Magnesium Hydrox/Alum Hydrox 30 Ml Oral.Susp) 30 ml PO Q6H PRN PRN Reason: Heartburn/Nausea Azathioprine (Azathioprine 50 Mg Tablet) 100 mg PO DAILY [facility] Last Admin: 07/28/22 10:59 Dose: 100 mg Carbidopa/Levodopa (Carbidopa/Levodopa 25/100 Tablet) 1 tab PO TID KATHRYN Last Admin: 07/28/22 21:14 Dose: 1 tab Folic Acid (Folic Acid 1 Mg Tablet) 1 mg PO DAILY [facility] Last Admin: 07/28/22 10:58 Dose: 1 mg [place] Carbonate ([place] Carbonate 300 Mg Tablet) 450 mg PO BEDTIME KAT[facility] Last Admin: 07/28/22 21:16 Dose: Not Given Loperamide HCl (Loperamide Hcl 2 Mg Capsule) 2 mg PO Q6H PRN PRN Reason: Diarrhea Last Admin: 07/21/22 15:36 Dose: 2 mg Magnesium Hydroxide (Milk Of Magnesia 30 Ml Oral.Susp) 30 ml PO DAILY PRN PRN Reason: Constipation Olanzapine (Olanzapine 7.5 Mg Tablet) 7.5 mg PO BEDTIME [facility]AT[facility] Last Admin: 07/28/22 21:14 Dose: 7.5 mg Oxybutynin Chloride (Oxybutynin Chloride Er 5 Mg Tab.Er.24) 10 mg PO DAILY [facility] Last Admin: 07/28/22 10:58 Dose: 10 mg Quetiapine Fumarate (Quetiapine Fumarate 25 Mg Tablet) 25 mg PO BEDTIME PRN PRN Reason: Insomnia Trazodone HCl (Trazodone Hcl 50 Mg Tablet) 50 mg PO BEDTIME PRN PRN Reason: Insomnia Last Admin: 07/11/22 21:38 Dose: 50 mg Trazodone HCl (Trazodone Hcl 100 Mg Tablet) 100 mg PO BEDTIME KATHRYN Last Admin: 07/28/22 21:14 Dose: 100 mg Venlafaxine HCl (Venlafaxine Hcl Er 150 Mg Cap.Er.24h) 150 mg PO DAILY [facility] Last Admin: 07/28/22 10:58 Dose: 150 mg Exam Exam Date and Time: July 29, 2022 0820 Height,Weight and Vital Signs: Height 5 ft 8 in Weight 95.028 kg Last Vital Signs Temp 98 F 07/29/22 06:48 Pulse 73 07/29/22 06:48 Resp 12 07/29/22 06:48 BP 131/78 07/29/22 06:48 Pulse Ox 94 07/29/22 06:48 O2 Del Method 07/29/22 06:48 O2 Flow Rate 3 07/27/22 08:04 Pertinent Lab Results Pertinent Lab Results: Laboratory Tests 07/07/22 07/08/22 07/08/22 15:02 08:02 08:02 WBC 5.4 RBC 4.11 L Hgb 13.8 L Hct 40.8 L MCV 99.3 H MCH 33.6 H MCHC 33.8 RDW 12.4 Plt Count 236 MPV 9.5 Immature Gran % (Auto) 0.4 Neut % (Auto) 65.0 Lymph % (Auto) 22.9 [place] % (Auto) 8.0 Eos % (Auto) 3.0 Baso % (Auto) 0.7 Lymph # (Auto) 1.2 [place] # (Auto) 0.4 Eos # (Auto) 0.2 Baso # (Auto) 0.0 Abs Immat Gran (auto) 0.02 Absolute Neuts (auto) 3.5 Absolute Nucleated RBC 0.000 Nucleated RBC % (auto) 0.0 Sodium 137 Potassium 4.6 Chloride 105 Carbon Dioxide 26 Anion Gap 11 L BUN 12 Creatinine 0.88 Estim Creat Clear Calc TNP Estimated GFR > 60 Fasting Glucose 107 H Estimat Average Glucose Hemoglobin A1c % Calcium 9.1 Total Bilirubin 0.4 AST 14 ALT 13 Alkaline Phosphatase 81 Total Protein 6.5 Albumin 4.1 Triglycerides 181 Cholesterol 168 LDL Cholesterol, Calc 98 HDL Cholesterol 34 Vitamin B12 Folate TSH 4.21 H Free T4 0.96 [place] 0.86 07/08/22 07/08/22 07/23/22 08:02 08:02 07:34 WBC RBC Hgb Hct MCV MCH MCHC RDW Plt Count MPV Immature Gran % (Auto) Neut % (Auto) Lymph % (Auto) [place] % (Auto) Eos % (Auto) Baso % (Auto) Lymph # (Auto) [place] # (Auto) Eos # (Auto) Baso # (Auto) Abs Immat Gran (auto) Absolute Neuts (auto) Absolute Nucleated RBC Nucleated RBC % (auto) Sodium 140 Potassium 5.2 H Chloride 106 Carbon Dioxide 28 Anion Gap 11 L BUN 15 Creatinine 1.09 Estim Creat Clear Calc 66.1 Estimated GFR > 60 Fasting Glucose 101 H Estimat Average Glucose 108 Hemoglobin A1c % 5.4 Calcium 8.9 Total Bilirubin 0.4 AST 17 ALT 12 Alkaline Phosphatase 88 Total Protein 6.1 L Albumin 3.8 Triglycerides Cholesterol LDL Cholesterol, Calc HDL Cholesterol Vitamin B12 746 Folate 18.9 TSH Free T4 [place] 07/23/22 07:34 WBC RBC Hgb Hct MCV MCH MCHC RDW Plt Count MPV Immature Gran % (Auto) Neut % (Auto) Lymph % (Auto) [place] % (Auto) Eos % (Auto) Baso % (Auto) Lymph # (Auto) [place] # (Auto) Eos # (Auto) Baso # (Auto) Abs Immat Gran (auto) Absolute Neuts (auto) Absolute Nucleated RBC Nucleated RBC % (auto) Sodium Potassium Chloride Carbon Dioxide Anion Gap BUN Creatinine Estim Creat Clear Calc Estimated GFR Fasting Glucose Estimat Average Glucose Hemoglobin A1c % Calcium Total Bilirubin AST ALT Alkaline Phosphatase Total Protein Albumin Triglycerides Cholesterol LDL Cholesterol, Calc HDL Cholesterol Vitamin B12 Folate TSH Free T4 [place] 0.45 L Airway Mallampati Class: II TM Dist: >3cm Neck ROM: Full Loose/Missing/Broken Teeth: No (Caps intact. Denies broken or loose teeth) Heart: RRR Lungs: CTAB Assessment and Plan Assessment Anesthesia Assessment: Anesthesia Plan Discussed and Chart Reviewed Final Anesthetic Review Family History of Problems with Anesthesia: No History of Problems with Anesthesia: No NPO: Yes ASA Class: III Final Preanesthetic Review: No Changes in Pt Med Stat, Meds/Allgs Chart Reviewed, Consent Obtained/Reviewed and Anes Risks/Benef Reviewed Patient Risk: Intermediate Procedure Risk: Intermediate Anesthetic Plan Anesthetic Plan: GA Disposition: Standard PACU
--- NOTE | 2022-07-29 08:20 | HO.ECTPROC ---
ECT Procedure Note Diagnosis/Treatment Date of Service: 07/29/22 Diagnosis: Major Depressive Disorder Interval Clinical Notes: pt much improved no si no psychosis no cognitive s/e noted Time: Total time managing care of this patient today ____ minutes. ECT Settings Device: THYMATRON DGx Electrode Placement: Bitemporal Program/Pulse Width: 0.50 Energy Percent: 100 Seizure Duration By EEG (in seconds): 55 Medications Administration General Anesthetic: Etomidate (12) Muscle Relaxant: Succinylcholine (120) Ancillary Medications Anti-emetics: Zofran - Pre ECT Airway Management Airway Management: Bag Mask Ventilation Treatment Recommendations No Changes Recommended: No change Notes: seems good for d/c Pt Tolerated Procedure w/o Issue: Yes
[2022-07-29] MEDS: Acetaminophen 325 MG TABLET 650 MG PO (11:46)
--- NOTE | 2022-07-29 12:26 | P.DS_ITS ---
DS: Providers Provider Date of Service: 07/29/22 Date of admission: 07/07/22 14:28 Date of discharge: 07/29/22 Primary care physician: Leeroy El DO DS: Diagnosis Discharge Diagnosis (1) Major depressive disorder, recurrent episode with mood-congruent psychotic features: Status: Acute (2) Parkinsonian features: Status: Acute Mental Status Exam Mental Status Exam Patient Appearance: Well Grooomed Patient Orientation: Person and Situation Level of Consciousness: Awake and Appropriate Patient Behavior: Cooperative Mood Description: Calm Affect Description: Constricted Ability to Follow Directions: Good Speech Pattern: Clear Hallucinations: None Delusions: Not Present Thought Process: Linear Thought Content: positive for Stanley and positive for Circumstantial Judgement: Fair Data Data Completed and Pending Completed studies during hospitalization [Text1]: 07/23/22 07/23/22 07:34 07:34 Sodium 140 Potassium 5.2 H Chloride 106 Carbon Dioxide 28 Anion Gap 11 L BUN 15 Creatinine 1.09 Estim Creat Clear Calc 66.1 Estimated GFR > 60 Fasting Glucose 101 H Calcium 8.9 Total Bilirubin 0.4 AST 17 ALT 12 Alkaline Phosphatase 88 Total Protein 6.1 L Albumin 3.8 [place] 0.45 L Imaging Diagnostic Imaging Impressions Brain MRI 07/22/22 12:58 IMPRESSION: - No acute intracranial findings. - There is global cerebral volume loss and there is mild chronic microangiopathy. DS: Summary Hospital Course Hospital Course: The patient was transferred from the [place] facility to do ECT. The patient carries a diagnosis of major depressive disorder and he has failed to several trials of antidepressants. Please see the HPI from the admission note for further details. On admission we started a workout for ECT and he was cleared for the procedure. We mally Deshpande started ECT with right unilateral and eventually we changed to bifrontal technique with a remark improvement of his mood. On admission the patient had several involuntary movements, he was taking Abilify 30 mg p.o. daily. We start a slow type tearing of unchanged to Zyprexa distorted Sona has worked very well for him. He psychotic symptoms and elusive behavior cleared very fast, his involuntary movements improved and he was future oriented. The patient was seen in the unit participating in groups, with a brighter affect and a remark improvement of his mood. No safety concerns, resolution of paranoid delusions. Since there were no safety concerns discharge planning was discussed. Time spent discussing smoking cessation with patient: 3 to 10 minutes Status at Discharge Functional status at discharge: independent ambulation Overall status at discharge: patient is back to baseline Time Spent with Patient Time attestation: Total time managing care of this patient today __40__ minutes. Time spent: Less than 30 minutes Discharge Plan Discharge Anticipated Discharge Date/Time: 07/29/22 13:00 Patient Disposition: Home, Self-Care Discharge Diagnosis: Major depressive disorder recurrent episode severe with psychotic features Referrals: [facility] [Other] - 08/16/22 2:00 pm (Your next appointment with Phil Asif is scheduled in person at [facility] for 08/16/22 at 2PM.) DR Juany Pereira [facility] -Primary Care [Other] - 1 Week Discharge Medications: New carbidopa-levodopa 25-100 mg Tablet 1 tab PO TID 30 Days Qty: 90 0RF acetaminophen 325 mg Tablet 650 mg PO Q6H PRN (Reason: Headache/Pain Mild Scale (1-3)) 30 Days Qty: 60 0RF lithium carbonate 300 mg Tablet 450 mg PO BEDTIME 30 Days Qty: 30 0RF olanzapine 7.5 mg Tablet 7.5 mg PO BEDTIME 30 Days Qty: 30 0RF trazodone 100 mg Tablet 100 mg PO BEDTIME 30 Days Qty: 30 0RF venlafaxine 150 mg Capsule,Extended Release 24hr 150 mg PO DAILY Qty: 30 0RF azathioprine 50 mg Tablet 100 mg PO DAILY 30 Days Qty: 60 0RF oxybutynin chloride 5 mg Tablet Extended Release 24hr 10 mg PO DAILY 30 Days Qty: 30 0RF folic acid 1 mg Tablet 1 mg PO DAILY 30 Days Qty: 30 0RF Discharge Orders: Discharge Order (Routine); Ordered 07/29/22 Ordered By: Jones Valles Diet: Advance to usual diet Activity on Discharge: As tolerated Stand Alone Forms: Patient Portal Discharge page Care Plan Goals: Care plan goals achieved in this admission Health Concerns: Continue treatment with primary care physician as an outpatient [facility] of [facility] Assessment: Elderly male with history of depression responded to ECT. At this moment the patient is much better, ready for discharge no safety concerns.
== END 2022-07-29 14:45 | disposition home or self-care (01) | DRG 885 ==
PROVIDERS: Physician Assistant; Admitting Provider Psychiatry & Neurology Psychiatry; PCP Student in an Organized Health Care Education/Training Program; Visit Provider Psychiatry & Neurology Psychiatry
PROC: (CPT 90870; principal; 2022-07-11 15:20)
PROC: GZB4ZZZ Other Electroconvulsive Therapy (ICD-10-PCS; CPT 90870; principal; 2022-07-13 08:00)
DX: F33.3 Major depressive disorder, recurrent, severe with psychotic symptoms (principal); K50.90 Crohn's disease, unspecified, without complications; E78.5 Hyperlipidemia, unspecified; M19.90 Unspecified osteoarthritis, unspecified site; G20 Parkinson's disease; R73.03 Prediabetes; E03.9 Hypothyroidism, unspecified; E53.8 Deficiency of other specified B group vitamins; Z91.51 Personal history of suicidal behavior; Z91.14 Patient's other noncompliance with medication regimen; Z88.5 Allergy status to narcotic agent; Z79.899 Other long term (current) drug therapy
CPT/HCPCS: 36415; 70551; 80053; 80061; 80178; 82607; 82746; 83036; 84439; 84443; 85025; 90870; 93005; 97161; J0330; J1885; J2405

== ENCOUNTER 2022-08-03 05:45 | Day surgery (SDC) | payer OTHER, SELFPAY ==
[2022-08-03] VITALS (8 sets, daily range): BP systolic 139–155; BP diastolic 77–90; PULSE 73–86; RESP 14–20; TEMP 36.2–36.8; O2SAT 92–99; BMI 31.9
[2022-08-03 06:44] LABS: COVID-19 Test Negative (Negative); IDNOW Serial# BCCEAD1C
--- NOTE | 2022-08-03 06:45 | P.CONAN_ITS ---
[facility] Active Problems Active Problems: All Active Problems (Updated 07/07/22 @ 17:49 by TRUE Lebron) Routine medical exam (Acute) Major depressive disorder, recurrent episode with mood-congruent psychotic features (Acute) Hypothyroidism (Acute) Vitamin B12 deficiency (Acute) Parkinsonian features (Acute) Crohn's disease (Acute) Past Medical History Medical History Crohn's disease Hypothyroidism Major depressive disorder, recurrent episode with mood-congruent psychotic features Osteoarthritis Parkinsonian features Vitamin B12 deficiency Family History Family History Father Stomach cancer Mother Dementia Family history of problems with anesthesia: No Surgical History Surgical History S/P small bowel resection History of Problems with Anesthesia: No Social History Social History Household Members: Spouse Housing: House Do you presently have visiting nurse or other home services: No Patient Tobacco Use Status: Never used Tobacco Advance Directives: No Advance Directives Information Provided: Yes service: Yes Sexual orientation: Straight/Heterosexual Meds Allergies Allergy/AdvReac Type Severity Reaction Status Date / Time codeine Allergy Intermediate Rash Verified 07/07/22 14:40 Exam Exam Date and Time: August 03, 2022 0645 Height,Weight and Vital Signs: Height 5 ft 8 in Weight 95.254 kg Last Vital Signs Temp 98.3 F 08/03/22 06:37 Pulse 75 08/03/22 06:37 Resp 19 08/03/22 06:37 BP 142/90 H 08/03/22 06:37 Pulse Ox 99 08/03/22 06:37 O2 Del Method 08/03/22 06:37 Pertinent Lab Results Pertinent Lab Results: Laboratory Tests 08/03/22 06:15 COVID-19 (DUNIA) Negative COVID-19 Clin Com See Note Airway Mallampati Class: II (Crowns laterally) TM Dist: >3cm Neck ROM: Full Heart: rrr Lungs: cta Assessment and Plan Assessment Anesthesia Assessment: Anesthesia Plan Discussed and Chart Reviewed Final Anesthetic Review Family History of Problems with Anesthesia: No History of Problems with Anesthesia: No ASA Class: III Final Preanesthetic Review: No Changes in Pt Med Stat, Meds/Allgs Chart Reviewed and Consent Obtained/Reviewed Patient Risk: Intermediate Procedure Risk: Intermediate Anesthetic Plan Anesthetic Plan: GA Disposition: Standard PACU
--- NOTE | 2022-08-03 07:29 | MHC.SHP ---
Pre-Procedural Eval Section A Date of Service: 08/03/22 The patient is an INPATIENT: No Changes since office visit: Yes Changes in Medication and Yes Patient answered all questions; No Cold of Flu in the past 2 weeks and No New Medical Problems The History & Physical has been completed within 30 days and I have reviewed it.: Yes Section B Chief Complaint: depression Allergies: Allergies Allergy/AdvReac Type Severity Reaction Status Date / Time codeine Allergy Intermediate Rash Verified 07/07/22 14:40 Plan I have reviewed the history and physical and performed a pertinent physical examination on my patient. No changes have occurred unless specified. Time Spent With Patient Time: Total time managing care of this patient today ____ minutes.
--- NOTE | 2022-08-03 07:34 | HO.ECTPROC ---
ECT Procedure Note Diagnosis/Treatment Date of Service: 08/03/22 Diagnosis: Major Depressive Disorder Previous ECT Date: 07/29/22 Current Treatment Number: 9 Treatment: Series Interval Clinical Notes: pt much improved no si no psychosis no cognitive s/e noted ongoing Time: Total time managing care of this patient today ____ minutes. ECT Settings Device: THYMATRON DGx Electrode Placement: Bitemporal Program/Pulse Width: 0.50 Energy Percent: 85 Seizure Duration By EEG (in seconds): 59 Medications Administration General Anesthetic: Etomidate (12) Muscle Relaxant: Succinylcholine (120) Ancillary Medications Anti-emetics: Zofran - Pre ECT Airway Management Airway Management: Bag Mask Ventilation Treatment Recommendations No Changes Recommended: No change Notes: f/u tx 1 week Pt Tolerated Procedure w/o Issue: Yes
== END 2022-08-03 09:19 | disposition home or self-care (01) ==
PROVIDERS: PCP Student in an Organized Health Care Education/Training Program; Visit Provider Psychiatry & Neurology Psychiatry
PROC: (CPT 90870; principal; 2022-08-03 07:30)
DX: F33.3 Major depressive disorder, recurrent, severe with psychotic symptoms (principal); T58.92XA Toxic effect of carbon monoxide from unspecified source, intentional self-harm, initial encounter; Y92.9 Unspecified place or not applicable; K50.90 Crohn's disease, unspecified, without complications; Z90.49 Acquired absence of other specified parts of digestive tract; G20 Parkinson's disease; E78.5 Hyperlipidemia, unspecified; E03.9 Hypothyroidism, unspecified; M15.9 Polyosteoarthritis, unspecified; R73.03 Prediabetes; E53.8 Deficiency of other specified B group vitamins; Z79.899 Other long term (current) drug therapy; Z88.8 Allergy status to other drugs, medicaments and biological substances; Z20.822 Contact with and (suspected) exposure to COVID-19
CPT/HCPCS: 87635; 90870; J0330; J2405

== ENCOUNTER 2022-08-10 06:10 | Day surgery (SDC) | payer OTHER, SELFPAY ==
[2022-08-10] VITALS (9 sets, daily range): BP systolic 116–174; BP diastolic 50–90; PULSE 75–93; RESP 14–20; TEMP 36.1–37.2; O2SAT 92–99; BMI 31.6
--- NOTE | 2022-08-10 06:40 | P.CONAN_ITS ---
[facility] Active Problems Active Problems: All Active Problems (Updated 08/06/22 @ 00:02 by Jody Lyons) Major depressive disorder, recurrent episode with mood-congruent psychotic features (Acute) Hypothyroidism (Acute) Vitamin B12 deficiency (Acute) Parkinsonian features (Acute) Crohn's disease (Acute) Past Medical History Medical History Crohn's disease Hypothyroidism Major depressive disorder, recurrent episode with mood-congruent psychotic features Osteoarthritis Parkinsonian features Vitamin B12 deficiency Family History Family History Father Stomach cancer Mother Dementia Family history of problems with anesthesia: No Surgical History Surgical History S/P small bowel resection History of Problems with Anesthesia: No Social History Social History Household Members: Spouse Housing: House Do you presently have visiting nurse or other home services: No Patient Tobacco Use Status: Never used Tobacco Advance Directives: No Advance Directives Information Provided: Yes service: Yes Sexual orientation: Straight/Heterosexual Meds Allergies Allergy/AdvReac Type Severity Reaction Status Date / Time codeine Allergy Intermediate Rash Verified 07/07/22 14:40 Exam Exam Date and Time: August 10, 2022 0640 Airway Mallampati Class: II (Multiple caps, implants laterally) TM Dist: >3cm Neck ROM: Full Heart: rrr Lungs: cta Assessment and Plan Assessment Anesthesia Assessment: Anesthesia Plan Discussed and Chart Reviewed Final Anesthetic Review Family History of Problems with Anesthesia: No History of Problems with Anesthesia: No NPO: Yes ASA Class: III Final Preanesthetic Review: No Changes in Pt Med Stat, Meds/Allgs Chart Reviewed and Consent Obtained/Reviewed Patient Risk: Intermediate Procedure Risk: Intermediate Anesthetic Plan Anesthetic Plan: GA Disposition: Standard PACU
[2022-08-10 06:48] LABS: COVID-19 Test Negative (Negative); IDNOW Serial# 16C4AD1C
--- NOTE | 2022-08-10 07:10 | MHC.SHP ---
Pre-Procedural Eval Section A Date of Service: 08/10/22 Changes since office visit: Yes Patient answered all questions; No Cold of Flu in the past 2 weeks, No New Medical Problems and No Changes in Medication The History & Physical has been completed within 30 days and I have reviewed it.: No Section B Chief Complaint: Major depressive disorder, recurrent, Details of Present Illness: recurrent depreesion PI History of Previous Operations: Relevant previous surgery/procedure and date(s) (ect) Allergies: Allergies Allergy/AdvReac Type Severity Reaction Status Date / Time codeine Allergy Intermediate Rash Verified 07/07/22 14:40 Review of Systems Sugical H&P ROS: Negative: Cardiovascular and Respiratory Exam Surgical H&P Exam: Normal: Heart and Normal: Lungs Plan Diagnosis/Plan: Unchanged I have reviewed the history and physical and performed a pertinent physical examination on my patient. No changes have occurred unless specified. Time Spent With Patient Time: Total time managing care of this patient today ____ minutes.
--- NOTE | 2022-08-10 07:32 | HO.ECTPROC ---
ECT Procedure Note Diagnosis/Treatment Date of Service: 08/10/22 Diagnosis: Major Depressive Disorder Previous ECT Date: 08/03/22 Current Treatment Number: 10 Treatment: Maintenance Interval Clinical Notes: pt has been stable generally Time: Total time managing care of this patient today ____ minutes. ECT Settings Device: THYMATRON DGx Electrode Placement: Bitemporal Program/Pulse Width: 0.50 Energy Percent: 100 Seizure Duration By EEG (in seconds): 66 Medications Administration General Anesthetic: Etomidate (16) Muscle Relaxant: Succinylcholine (100) Ancillary Medications Analgesics: Torodol - Pre ECT (15) Anti-emetics: Zofran - Pre ECT Airway Management Airway Management: Bag Mask Ventilation Treatment Recommendations No Changes Recommended: No change Electrode Placement: Bitemporal Notes: doing well f/u tx 2 weeks Pt Tolerated Procedure w/o Issue: Yes
== END 2022-08-10 09:00 | disposition home or self-care (01) ==
PROVIDERS: PCP Student in an Organized Health Care Education/Training Program; Visit Provider Psychiatry & Neurology Psychiatry
PROC: (CPT 90870; principal; 2022-08-10 07:00)
DX: F33.3 Major depressive disorder, recurrent, severe with psychotic symptoms (principal); G20 Parkinson's disease; E03.9 Hypothyroidism, unspecified; E53.8 Deficiency of other specified B group vitamins; R73.03 Prediabetes; Z79.899 Other long term (current) drug therapy; Z88.8 Allergy status to other drugs, medicaments and biological substances; Z20.822 Contact with and (suspected) exposure to COVID-19
CPT/HCPCS: 87635; 90870; J0330; J2405

== ENCOUNTER 2022-08-24 05:44 | Day surgery (SDC) | payer OTHER, SELFPAY ==
[2022-08-24] VITALS (7 sets, daily range): BP systolic 150–190; BP diastolic 79–97; PULSE 70–84; RESP 15–18; TEMP 36.5–37.2; O2SAT 95–97; BMI 31.6
[2022-08-24 06:34] LABS: COVID-19 Test Negative (Negative); IDNOW Serial# 16C4AD1C
--- NOTE | 2022-08-24 07:55 | MHC.SHP ---
Pre-Procedural Eval Section A Date of Service: 08/24/22 The patient is an INPATIENT: No Changes since office visit: Yes Patient answered all questions; No Cold of Flu in the past 2 weeks, No New Medical Problems and No Changes in Medication The History & Physical has been completed within 30 days and I have reviewed it.: Yes Section B Chief Complaint: Major depressive disorder, recurrent, Allergies: Allergies Allergy/AdvReac Type Severity Reaction Status Date / Time codeine Allergy Intermediate Rash Verified 07/07/22 14:40 Plan I have reviewed the history and physical and performed a pertinent physical examination on my patient. No changes have occurred unless specified. Time Spent With Patient Time: Total time managing care of this patient today ____ minutes.
--- NOTE | 2022-08-24 08:07 | HO.ECTPROC ---
ECT Procedure Note Diagnosis/Treatment Date of Service: 08/24/22 Diagnosis: Major Depressive Disorder Previous ECT Date: 08/03/22 Current Treatment Number: 11 Treatment: Maintenance Interval Clinical Notes: pt has been stable generally not psychotic Time: Total time managing care of this patient today ____ minutes. ECT Settings Device: THYMATRON DGx Electrode Placement: Bitemporal Program/Pulse Width: 0.50 Energy Percent: 70 Seizure Duration By EEG (in seconds): 50 Medications Administration General Anesthetic: Etomidate (12) Muscle Relaxant: Succinylcholine (120) Ancillary Medications Anti-emetics: Zofran - Pre ECT Airway Management Airway Management: Bag Mask Ventilation Treatment Recommendations No Changes Recommended: No change Electrode Placement: Bitemporal Notes: doing well f/u tx 2-3 weeks monitor response Pt Tolerated Procedure w/o Issue: Yes
--- NOTE | 2022-08-24 08:16 | HO.ANESPROP2 ---
HPI - Anesthesia Eval Consult details Narrative: 72 yo male patient for ECT PMFSH Active Problems Active Problems: All Active Problems (Updated 08/06/22 @ 00:02 by Jody Lyons) Major depressive disorder, recurrent episode with mood-congruent psychotic features (Acute) Hypothyroidism (Acute) Vitamin B12 deficiency (Acute) Parkinsonian features (Acute) Crohn's disease (Acute) Past Medical History Medical History Crohn's disease Hypothyroidism Major depressive disorder, recurrent episode with mood-congruent psychotic features Osteoarthritis Parkinsonian features Vitamin B12 deficiency Family History Family History Father Stomach cancer Mother Dementia Family history of problems with anesthesia: No Surgical History Surgical History S/P small bowel resection History of Problems with Anesthesia: No Social History Social History Household Members: Spouse Housing: House Do you presently have visiting nurse or other home services: No Patient Tobacco Use Status: Never used Tobacco Advance Directives: No Advance Directives Information Provided: Yes service: Yes Sexual orientation: Straight/Heterosexual Meds Allergies Allergy/AdvReac Type Severity Reaction Status Date / Time codeine Allergy Intermediate Rash Verified 07/07/22 14:40 Exam Exam Date and Time: August 24, 2022 0816 Height,Weight and Vital Signs: Height 5 ft 8 in Weight 94.347 kg Last Vital Signs Temp 97.7 F 08/24/22 06:35 Pulse 70 08/24/22 06:35 Resp 16 08/24/22 06:35 BP 150/79 H 08/24/22 06:35 Pulse Ox 97 08/24/22 06:35 O2 Del Method 08/24/22 06:35 Pertinent Lab Results Pertinent Lab Results: Laboratory Tests 08/24/22 06:15 COVID-19 (DUNIA) Negative COVID-19 Clin Com See Note Airway Mallampati Class: III TM Dist: >3cm Neck ROM: Full Loose/Missing/Broken Teeth: No (Denies broken, loose, missing teeth. Many caps, implants back) Heart: RRR Lungs: CTAB Assessment and Plan Assessment Anesthesia Assessment: Anesthesia Plan Discussed and Chart Reviewed Final Anesthetic Review Family History of Problems with Anesthesia: No History of Problems with Anesthesia: No NPO: Yes ASA Class: III Final Preanesthetic Review: No Changes in Pt Med Stat, Meds/Allgs Chart Reviewed, Consent Obtained/Reviewed and Anes Risks/Benef Reviewed Patient Risk: Intermediate Procedure Risk: Intermediate Assessment/Block/Sedation in SS: Assess/Block/Sedation-SS Anesthetic Plan Anesthetic Plan: GA Disposition: Standard PACU
== END 2022-08-24 09:45 | disposition home or self-care (01) ==
PROVIDERS: PCP Student in an Organized Health Care Education/Training Program; Visit Provider Psychiatry & Neurology Psychiatry
PROC: (CPT 90870; principal; 2022-08-24 07:00)
DX: F33.9 Major depressive disorder, recurrent, unspecified (principal); E03.9 Hypothyroidism, unspecified; G20 Parkinson's disease; K50.90 Crohn's disease, unspecified, without complications; E53.8 Deficiency of other specified B group vitamins; Z88.8 Allergy status to other drugs, medicaments and biological substances; Z20.822 Contact with and (suspected) exposure to COVID-19
CPT/HCPCS: 87635; 90870; J0330; J2405

== ENCOUNTER 2022-09-21 05:53 | Day surgery (SDC) | payer OTHER, SELFPAY ==
[2022-09-21] VITALS (8 sets, daily range): BP systolic 148–167; BP diastolic 82–90; PULSE 78–87; RESP 12–25; TEMP 36.6; O2SAT 93–97; BMI 33.4
[2022-09-21 06:44] LABS: COVID-19 Test Negative (Negative); IDNOW Serial# BCCEAD1C
--- NOTE | 2022-09-21 07:20 | MHC.SHP ---
Pre-Procedural Eval Section A Date of Service: 09/21/22 Changes since office visit: Yes Patient answered all questions; No Cold of Flu in the past 2 weeks, No New Medical Problems and No Changes in Medication The History & Physical has been completed within 30 days and I have reviewed it.: Yes Section B Chief Complaint: Major depressive disorder, recurrent, severe with Allergies: Allergies Allergy/AdvReac Type Severity Reaction Status Date / Time codeine Allergy Intermediate Rash Verified 07/07/22 14:40 Plan I have reviewed the history and physical and performed a pertinent physical examination on my patient. No changes have occurred unless specified. Time Spent With Patient Time: Total time managing care of this patient today ____ minutes.
--- NOTE | 2022-09-21 07:26 | HO.ANESPROP2 ---
HPI - Anesthesia Eval Consult details Narrative: 72yo male patient for ECT PMFSH Active Problems Active Problems: All Active Problems (Updated 08/06/22 @ 00:02 by Jody Lyons) Major depressive disorder, recurrent episode with mood-congruent psychotic features (Acute) Hypothyroidism (Acute) Vitamin B12 deficiency (Acute) Parkinsonian features (Acute) Crohn's disease (Acute) Past Medical History Medical History Crohn's disease Hypothyroidism Major depressive disorder, recurrent episode with mood-congruent psychotic features Osteoarthritis Parkinsonian features Vitamin B12 deficiency Family History Family History Father Stomach cancer Mother Dementia Family history of problems with anesthesia: No Surgical History Surgical History S/P small bowel resection History of Problems with Anesthesia: No Social History Social History Household Members: Spouse Housing: House Do you presently have visiting nurse or other home services: No Patient Tobacco Use Status: Never used Tobacco Advance Directives: No Advance Directives Information Provided: Yes service: Yes Sexual orientation: Straight/Heterosexual Meds Allergies Allergy/AdvReac Type Severity Reaction Status Date / Time codeine Allergy Intermediate Rash Verified 07/07/22 14:40 Active Medications: Current Medications Lactated Ringer's (Lr) 1,000 mls @ 50 mls/hr IVCONT .Q20H KATHRYN Exam Exam Date and Time: September 21, 2022 0726 Height,Weight and Vital Signs: Height 5 ft 8 in Weight 99.79 kg Last Vital Signs Temp 98 F 09/21/22 06:33 Pulse 79 09/21/22 06:33 Resp 25 H 09/21/22 06:33 BP 167/90 H 09/21/22 06:33 Pulse Ox 97 09/21/22 06:33 O2 Del Method 09/21/22 06:33 Pertinent Lab Results Pertinent Lab Results: Laboratory Tests 09/21/22 06:16 COVID-19 (DUNIA) Negative COVID-19 Clin Com See Note Airway Mallampati Class: III TM Dist: >3cm Neck ROM: Full Loose/Missing/Broken Teeth: No (Denies broken, loosr, missing teeth) Heart: RRR Lungs: CTAB Assessment and Plan Assessment Anesthesia Assessment: Anesthesia Plan Discussed and Chart Reviewed Final Anesthetic Review Family History of Problems with Anesthesia: No History of Problems with Anesthesia: No NPO: Yes ASA Class: III Final Preanesthetic Review: No Changes in Pt Med Stat, Meds/Allgs Chart Reviewed, Consent Obtained/Reviewed and Anes Risks/Benef Reviewed Patient Risk: Intermediate Procedure Risk: Intermediate Assessment/Block/Sedation in SS: Assess/Block/Sedation-SS Anesthetic Plan Anesthetic Plan: GA Disposition: Standard PACU
--- NOTE | 2022-09-21 07:44 | HO.ECTPROC ---
ECT Procedure Note Diagnosis/Treatment Date of Service: 09/21/22 Diagnosis: Major Depressive Disorder Previous ECT Date: 08/24/22 Current Treatment Number: 12 Treatment: Maintenance Interval Clinical Notes: pt has been stable generally not psychotic has continued to be stable not psychotic past few wks Time: Total time managing care of this patient today ____ minutes. ECT Settings Device: THYMATRON DGx Electrode Placement: Bitemporal Program/Pulse Width: 0.50 Energy Percent: 70 Seizure Duration By EEG (in seconds): 65 Medications Administration General Anesthetic: Etomidate (12) Muscle Relaxant: Succinylcholine (120) Ancillary Medications Anti-emetics: Zofran - Pre ECT Airway Management Airway Management: Bag Mask Ventilation Treatment Recommendations Electrode Placement: Bitemporal Notes: Increased succinylcholine 140 mg follow-up treatment 3-4 weeks Pt Tolerated Procedure w/o Issue: Yes
== END 2022-09-21 09:07 ==
PROVIDERS: PCP Psychiatry & Neurology Psychiatry; Visit Provider Psychiatry & Neurology Psychiatry
PROC: (CPT 90870; principal; 2022-09-21 07:30)
DX: F33.3 Major depressive disorder, recurrent, severe with psychotic symptoms (principal); R73.03 Prediabetes; G20 Parkinson's disease; K50.90 Crohn's disease, unspecified, without complications; E03.9 Hypothyroidism, unspecified; E53.8 Deficiency of other specified B group vitamins; Z88.8 Allergy status to other drugs, medicaments and biological substances; Z20.822 Contact with and (suspected) exposure to COVID-19
CPT/HCPCS: 87635; 90870; J0330; J2405

== ENCOUNTER 2022-10-21 05:52 | Day surgery (SDC) | payer OTHER, SELFPAY ==
[2022-10-21 06:25] VITALS: BMI 32.9
[2022-10-21 06:28] VITALS: BP 169/93; PULSE 69; RESP 16; TEMP 36.6; O2SAT 96
[2022-10-21 06:38] LABS: COVID-19 Test Negative (Negative); IDNOW Serial# BCCEAD1C
--- NOTE | 2022-10-21 06:59 | P.CONAN_ITS ---
[facility] Active Problems Active Problems: All Active Problems (Updated 08/06/22 @ 00:02 by Jody Lyons) Major depressive disorder, recurrent episode with mood-congruent psychotic features (Acute) Hypothyroidism (Acute) Vitamin B12 deficiency (Acute) Parkinsonian features (Acute) Crohn's disease (Acute) Past Medical History Medical History Crohn's disease Hypothyroidism Major depressive disorder, recurrent episode with mood-congruent psychotic features Osteoarthritis Parkinsonian features Vitamin B12 deficiency Family History Family History Father Stomach cancer Mother Dementia Family history of problems with anesthesia: No Surgical History Surgical History S/P small bowel resection History of Problems with Anesthesia: No Social History Social History Household Members: Spouse Housing: House Do you presently have visiting nurse or other home services: No Patient Tobacco Use Status: Former Tobacco user Tobacco use type: Cigarette Use of substances other than those prescribed or required for medical reasons: No Are you DNR?: No Advance Directives: No Advance Directives Information Provided: Yes service: Yes Sexual orientation: Straight/Heterosexual Meds Allergies Allergy/AdvReac Type Severity Reaction Status Date / Time codeine Allergy Intermediate Rash Verified 10/21/22 06:24 Active Medications: Current Medications Lactated Ringer's (Lr) 1,000 mls @ 50 mls/hr IVCONT .Q20H KATHRYN Exam Exam Date and Time: October 21, 2022 0659 Height,Weight and Vital Signs: Height 5 ft 8.5 in Weight 99.79 kg Last Vital Signs Temp 97.9 F 10/21/22 06:28 Pulse 69 10/21/22 06:28 Resp 16 10/21/22 06:28 BP 169/93 H 10/21/22 06:28 Pulse Ox 96 10/21/22 06:28 O2 Del Method Room Air 10/21/22 06:28 Pertinent Lab Results Pertinent Lab Results: Laboratory Tests 10/21/22 06:14 COVID-19 (DUNIA) Negative COVID-19 Clin Com See Note Airway Mallampati Class: II TM Dist: >3cm Neck ROM: Full Heart: rrr Lungs: cta Assessment and Plan Assessment Anesthesia Assessment: Anesthesia Plan Discussed and Chart Reviewed Final Anesthetic Review Family History of Problems with Anesthesia: No History of Problems with Anesthesia: No NPO: Yes ASA Class: III Final Preanesthetic Review: No Changes in Pt Med Stat, Meds/Allgs Chart Reviewed and Consent Obtained/Reviewed Patient Risk: Intermediate Procedure Risk: Intermediate Anesthetic Plan Anesthetic Plan: GA Disposition: Standard PACU
[2022-10-21] MEDS: Lactated Ringers 1,000 ML 50 ML IVCONT (07:00)
--- NOTE | 2022-10-21 08:24 | MHC.SHP ---
Pre-Procedural Eval Section A Date of Service: 10/21/22 The patient is an INPATIENT: No Changes since office visit: Yes Patient answered all questions; No Cold of Flu in the past 2 weeks, No New Medical Problems and No Changes in Medication The History & Physical has been completed within 30 days and I have reviewed it.: Yes Section B Chief Complaint: Major depressive disorder, recurrent, severe with Allergies: Allergies Allergy/AdvReac Type Severity Reaction Status Date / Time codeine Allergy Intermediate Rash Verified 10/21/22 06:24 Plan I have reviewed the history and physical and performed a pertinent physical examination on my patient. No changes have occurred unless specified. Time Spent With Patient Time: Total time managing care of this patient today ____ minutes.
--- NOTE | 2022-10-21 08:24 | HO.ECTPROC ---
ECT Procedure Note Diagnosis/Treatment Date of Service: 10/21/22 Diagnosis: Major Depressive Disorder Previous ECT Date: 08/24/22 Current Treatment Number: 13 Treatment: Maintenance Interval Clinical Notes: pt has been depressed anxious no si not psychotic Time: Total time managing care of this patient today ____ minutes. ECT Settings Device: THYMATRON DGx Electrode Placement: Bitemporal Program/Pulse Width: 0.50 Energy Percent: 70 Seizure Duration By EEG (in seconds): 77 Medications Administration General Anesthetic: Etomidate (12) Muscle Relaxant: Succinylcholine (140) Ancillary Medications Anti-emetics: Zofran - Pre ECT Airway Management Airway Management: Bag Mask Ventilation Treatment Recommendations Electrode Placement: Bitemporal Notes: f/u tx 1 week secondary to dep sx Pt Tolerated Procedure w/o Issue: Yes
[2022-10-21 08:46] VITALS: BP 164/85; PULSE 75; RESP 16; TEMP 37.7; O2SAT 94
[2022-10-21 08:51] VITALS: BP 160/86; PULSE 77; RESP 16; O2SAT 95
[2022-10-21 08:56] VITALS: BP 161/85; PULSE 75; RESP 16; O2SAT 95
[2022-10-21 09:01] VITALS: BP 157/92; PULSE 76; RESP 16; O2SAT 97
[2022-10-21 09:16] VITALS: BP 158/90; PULSE 73; RESP 16; TEMP 36.9; O2SAT 96
== END 2022-10-21 09:33 | disposition home or self-care (01) ==
PROVIDERS: PCP Student in an Organized Health Care Education/Training Program; Visit Provider Psychiatry & Neurology Psychiatry
PROC: (CPT 90870; principal; 2022-10-21 07:00)
DX: F33.3 Major depressive disorder, recurrent, severe with psychotic symptoms (principal); R25.1 Tremor, unspecified; R73.03 Prediabetes; E53.8 Deficiency of other specified B group vitamins; E03.9 Hypothyroidism, unspecified; M17.0 Bilateral primary osteoarthritis of knee; K50.90 Crohn's disease, unspecified, without complications; E66.9 Obesity, unspecified; Z68.35 Body mass index [BMI] 35.0-35.9, adult; Z79.899 Other long term (current) drug therapy; Z88.8 Allergy status to other drugs, medicaments and biological substances; Z87.891 Personal history of nicotine dependence; Z20.822 Contact with and (suspected) exposure to COVID-19
CPT/HCPCS: 87635; 90870; J0330; J2405

== ENCOUNTER 2022-10-28 05:50 | Day surgery (SDC) | payer OTHER, SELFPAY ==
[2022-10-28 06:48] VITALS: BP 141/81; PULSE 73; RESP 16; TEMP 36.8; O2SAT 96; BMI 34.2
[2022-10-28 06:50] LABS: COVID-19 Test Negative (Negative); IDNOW Serial# BCCEAD1C
--- NOTE | 2022-10-28 07:29 | HO.ANESPROP2 ---
FORMERLY [facility] Active Problems Active Problems: All Active Problems (Updated 08/06/22 @ 00:02 by Jody Lyons) Major depressive disorder, recurrent episode with mood-congruent psychotic features (Acute) Hypothyroidism (Acute) Vitamin B12 deficiency (Acute) Parkinsonian features (Acute) Crohn's disease (Acute) Past Medical History Medical History Crohn's disease Hypothyroidism Major depressive disorder, recurrent episode with mood-congruent psychotic features Osteoarthritis Parkinsonian features Vitamin B12 deficiency Family History Family History Father Stomach cancer Mother Dementia Family history of problems with anesthesia: No Surgical History Surgical History S/P small bowel resection History of Problems with Anesthesia: No Social History Social History Household Members: Spouse Housing: House Do you presently have visiting nurse or other home services: No Patient Tobacco Use Status: Former Tobacco user Tobacco use type: Cigarette Advance Directives: No Advance Directives Information Provided: Yes service: Yes Sexual orientation: Straight/Heterosexual Meds Allergies Allergy/AdvReac Type Severity Reaction Status Date / Time codeine Allergy Intermediate Rash Verified 10/21/22 06:24 Exam Exam Date and Time: October 28, 2022 0729 Height,Weight and Vital Signs: Height 5 ft 8 in Weight 102.058 kg Last Vital Signs Temp 98.3 F 10/28/22 06:48 Pulse 73 10/28/22 06:48 Resp 16 10/28/22 06:48 BP 141/81 H 10/28/22 06:48 Pulse Ox 96 10/28/22 06:48 O2 Del Method Room Air 10/28/22 06:48 Pertinent Lab Results Pertinent Lab Results: Laboratory Tests 10/28/22 06:17 COVID-19 ([facility]) Negative COVID-19 Clin Com See Note Airway Mallampati Class: II (post, caps multiple laterally) TM Dist: >3cm Neck ROM: Full Heart: rrr Lungs: cta Assessment and Plan Assessment Anesthesia Assessment: Anesthesia Plan Discussed and Chart Reviewed Final Anesthetic Review Family History of Problems with Anesthesia: No History of Problems with Anesthesia: No NPO: Yes ASA Class: III Final Preanesthetic Review: No Changes in Pt Med Stat, Meds/Allgs Chart Reviewed and Consent Obtained/Reviewed Patient Risk: Intermediate Procedure Risk: Intermediate Anesthetic Plan Anesthetic Plan: GA Disposition: Standard PACU
--- NOTE | 2022-10-28 08:53 | MHC.SHP ---
Pre-Procedural Eval Section A Date of Service: 10/28/22 Section B Chief Complaint: depression Details of Present Illness: recurrent depression Relevant Social History: None Present Medications: see Short Stay Collaborative assessment Medical History: Significant History (parkinsons ) Allergies: Allergies Allergy/AdvReac Type Severity Reaction Status Date / Time codeine Allergy Intermediate Rash Verified 10/21/22 06:24 Review of Systems Sugical H&P ROS: Negative: Cardiovascular and Respiratory and Yes, Specify: Neurological (parkinsons ) and Psychiatric (depression ) Exam Surgical H&P Exam: Normal: Heart and Normal: Lungs Plan Diagnosis/Plan: Unchanged I have reviewed the history and physical and performed a pertinent physical examination on my patient. No changes have occurred unless specified. Time Spent With Patient Time: Total time managing care of this patient today ____ minutes.
[2022-10-28 08:55] VITALS: BP 186/92; PULSE 88; RESP 20; TEMP 37.7; O2SAT 94
--- NOTE | 2022-10-28 08:55 | HO.ECTPROC ---
ECT Procedure Note Diagnosis/Treatment Date of Service: 10/28/22 Diagnosis: Major Depressive Disorder Previous ECT Date: 10/21/22 Current Treatment Number: 14 Treatment: Maintenance Interval Clinical Notes: pt has been depressed anxious no active si not psychotic but had felt despondant Time: Total time managing care of this patient today ____ minutes. ECT Settings Device: THYMATRON DGx Electrode Placement: Rt temporal/ Lt frontal Program/Pulse Width: 0.50 Energy Percent: 70 Seizure Duration By EEG (in seconds): 38 Medications Administration General Anesthetic: Etomidate (12) Muscle Relaxant: Succinylcholine (140) Ancillary Medications Anti-emetics: Zofran - Pre ECT Airway Management Airway Management: Bag Mask Ventilation Treatment Recommendations No Changes Recommended: No change Notes: will speak to pt discussed option of inpt if needed Pt Tolerated Procedure w/o Issue: Yes
[2022-10-28 09:00] VITALS: BP 158/97; PULSE 98; RESP 18; O2SAT 95
[2022-10-28 09:05] VITALS: BP 161/97; PULSE 95; RESP 18; O2SAT 95
[2022-10-28 09:10] VITALS: BP 165/92; PULSE 95; RESP 18; TEMP 37.7; O2SAT 95
[2022-10-28 09:25] VITALS: BP 156/89; PULSE 84; RESP 16; TEMP 36.8; O2SAT 97
== END 2022-10-28 09:53 | disposition home or self-care (01) ==
PROVIDERS: PCP Student in an Organized Health Care Education/Training Program; Visit Provider Psychiatry & Neurology Psychiatry
PROC: (CPT 90870; principal; 2022-10-28 07:00)
DX: F33.9 Major depressive disorder, recurrent, unspecified (principal); F41.1 Generalized anxiety disorder; R25.1 Tremor, unspecified; R73.03 Prediabetes; E53.8 Deficiency of other specified B group vitamins; E03.9 Hypothyroidism, unspecified; M17.0 Bilateral primary osteoarthritis of knee; K50.90 Crohn's disease, unspecified, without complications; E66.9 Obesity, unspecified; Z68.35 Body mass index [BMI] 35.0-35.9, adult; Z79.899 Other long term (current) drug therapy; Z88.8 Allergy status to other drugs, medicaments and biological substances; Z87.891 Personal history of nicotine dependence; Z20.822 Contact with and (suspected) exposure to COVID-19
CPT/HCPCS: 87635; 90870; J0330; J2405

== ENCOUNTER → 2022-11-04 06:02 | Day surgery (SDC) | payer OTHER, SELFPAY ==
[2022-11-04 06:39] VITALS: BP 136/76; PULSE 71; RESP 18; TEMP 36.7; O2SAT 97; BMI 33.4
--- NOTE | 2022-11-04 06:49 | HO.ANESPROP2 ---
COUNT INCLUDES THE [facility] Active Problems Active Problems: All Active Problems (Updated 08/06/22 @ 00:02 by Jody Lyons) Major depressive disorder, recurrent episode with mood-congruent psychotic features (Acute) Hypothyroidism (Acute) Vitamin B12 deficiency (Acute) Parkinsonian features (Acute) Crohn's disease (Acute) Past Medical History Medical History Crohn's disease Hypothyroidism Major depressive disorder, recurrent episode with mood-congruent psychotic features Osteoarthritis Parkinsonian features Vitamin B12 deficiency Family History Family History Father Stomach cancer Mother Dementia Family history of problems with anesthesia: No Surgical History Surgical History S/P small bowel resection History of Problems with Anesthesia: No Social History Social History Household Members: Spouse Housing: House Do you presently have visiting nurse or other home services: No Patient Tobacco Use Status: Former Tobacco user Tobacco use type: Cigarette Advance Directives: No Advance Directives Information Provided: No service: Yes Sexual orientation: Straight/Heterosexual Meds Allergies Allergy/AdvReac Type Severity Reaction Status Date / Time codeine Allergy Intermediate Rash Verified 10/21/22 06:24 Exam Exam Date and Time: November 04, 2022 0649 Height,Weight and Vital Signs: Height 5 ft 8 in Weight 99.79 kg Last Vital Signs Temp 98.1 F 11/04/22 06:39 Pulse 71 11/04/22 06:39 Resp 18 11/04/22 06:39 BP 136/76 11/04/22 06:39 Pulse Ox 97 11/04/22 06:39 O2 Del Method Room Air 11/04/22 06:39 Airway Mallampati Class: II (multiple caps laterally) TM Dist: >3cm Neck ROM: Full Heart: rrr Lungs: cta Assessment and Plan Assessment Anesthesia Assessment: Anesthesia Plan Discussed and Chart Reviewed Final Anesthetic Review Family History of Problems with Anesthesia: No History of Problems with Anesthesia: No NPO: Yes ASA Class: III Final Preanesthetic Review: No Changes in Pt Med Stat, Meds/Allgs Chart Reviewed and Consent Obtained/Reviewed Patient Risk: Intermediate Procedure Risk: Intermediate Anesthetic Plan Anesthetic Plan: GA Disposition: Standard PACU
[2022-11-04 06:51] LABS: COVID-19 Test Negative (Negative); IDNOW Serial# BCCEAD1C
[2022-11-04 07:49] VITALS: BP 175/93; PULSE 95; RESP 16; TEMP 37.3; O2SAT 97
[2022-11-04 08:04] VITALS: BP 143/82; PULSE 84; RESP 20; O2SAT 97
[2022-11-04 08:19] VITALS: BP 143/82; PULSE 80; RESP 20; O2SAT 95
[2022-11-04 08:39] VITALS: BP 137/78; PULSE 79; RESP 18; TEMP 36.1; O2SAT 95
--- NOTE | 2022-11-04 23:58 | HO.ECTPROC ---
ECT Procedure Note Diagnosis/Treatment Date of Service: 11/06/22 Diagnosis: Major Depressive Disorder Current Treatment Number: 15 Treatment: Other (continuation) Interval Clinical Notes: Patient somewhat improved feeling better still somewhat lethargic flat no SI States he has been tolerating ECT Time: Total time managing care of this patient today ____ minutes. ECT Settings Device: THYMATRON DGx Program/Pulse Width: 0.50 Energy Percent: 70 Seizure Duration By EEG (in seconds): 34 Medications Administration General Anesthetic: Etomidate (12) Muscle Relaxant: Succinylcholine (140) Ancillary Medications Anti-emetics: Zofran - Pre ECT Airway Management Airway Management: Bag Mask Ventilation Treatment Recommendations No Changes Recommended: No change Notes: f/u tx 1 week monitor mood side effects not psychotic Pt Tolerated Procedure w/o Issue: Yes
== END | disposition home or self-care (01) ==
PROVIDERS: PCP Student in an Organized Health Care Education/Training Program; Visit Provider Psychiatry & Neurology Psychiatry
PROC: (CPT 90870; principal; 2022-11-04 08:00)
DX: F33.3 Major depressive disorder, recurrent, severe with psychotic symptoms (principal); G20 Parkinson's disease; E03.9 Hypothyroidism, unspecified; K50.90 Crohn's disease, unspecified, without complications; M15.9 Polyosteoarthritis, unspecified; E53.8 Deficiency of other specified B group vitamins; Z88.8 Allergy status to other drugs, medicaments and biological substances; Z20.822 Contact with and (suspected) exposure to COVID-19; Z87.891 Personal history of nicotine dependence
CPT/HCPCS: 87635; 90870; J0330; J2405

== ENCOUNTER 2022-11-11 05:51 | Day surgery (SDC) | payer OTHER, SELFPAY ==
[2022-11-11 06:40] VITALS: BP 143/79; PULSE 72; RESP 16; TEMP 36.3; O2SAT 95; BMI 33.4
[2022-11-11 06:43] LABS: COVID-19 Test Negative (Negative); IDNOW Serial# 08D9AD1C
--- NOTE | 2022-11-11 06:51 | HO.ANESPROP2 ---
FORMERLY [facility] Active Problems Active Problems: All Active Problems (Updated 08/06/22 @ 00:02 by Jody Lyons) Major depressive disorder, recurrent episode with mood-congruent psychotic features (Acute) Hypothyroidism (Acute) Vitamin B12 deficiency (Acute) Parkinsonian features (Acute) Crohn's disease (Acute) Past Medical History Medical History Crohn's disease Hypothyroidism Major depressive disorder, recurrent episode with mood-congruent psychotic features Osteoarthritis Parkinsonian features Vitamin B12 deficiency Family History Family History Father Stomach cancer Mother Dementia Family history of problems with anesthesia: No Surgical History Surgical History S/P small bowel resection History of Problems with Anesthesia: No Social History Social History Household Members: Spouse Housing: House Do you presently have visiting nurse or other home services: No Patient Tobacco Use Status: Former Tobacco user Tobacco use type: Cigarette Advance Directives: No Advance Directives Information Provided: Yes service: Yes Sexual orientation: Straight/Heterosexual Meds Allergies Allergy/AdvReac Type Severity Reaction Status Date / Time codeine Allergy Intermediate Rash Verified 10/21/22 06:24 Exam Exam Date and Time: November 11, 2022 0651 Height,Weight and Vital Signs: Height 5 ft 8 in Weight 99.79 kg Last Vital Signs Temp 97.4 F 11/11/22 06:40 Pulse 72 11/11/22 06:40 Resp 16 11/11/22 06:40 BP 143/79 H 11/11/22 06:40 Pulse Ox 95 11/11/22 06:40 O2 Del Method Room Air 11/11/22 06:40 Pertinent Lab Results Pertinent Lab Results: Laboratory Tests 11/11/22 06:17 COVID-19 ([facility]) Negative COVID-19 Clin Com See Note Airway Mallampati Class: II (caps and posts laterally) TM Dist: >3cm Neck ROM: Full Heart: rrr Lungs: cta Assessment and Plan Assessment Anesthesia Assessment: Anesthesia Plan Discussed and Chart Reviewed Final Anesthetic Review Family History of Problems with Anesthesia: No History of Problems with Anesthesia: No NPO: Yes ASA Class: III Final Preanesthetic Review: No Changes in Pt Med Stat, Meds/Allgs Chart Reviewed and Consent Obtained/Reviewed Patient Risk: Intermediate Procedure Risk: Intermediate Anesthetic Plan Anesthetic Plan: GA Disposition: Standard PACU
--- NOTE | 2022-11-11 07:49 | MHC.SHP ---
Pre-Procedural Eval Section A Date of Service: 11/11/22 Section B Chief Complaint: depression Details of Present Illness: recurrent depression much improved Relevant Social History: None Present Medications: see Short Stay Collaborative assessment Medical History: Significant History (parkinsons ) History of Previous Operations: No relevant previous surgery (ect) Allergies: Allergies Allergy/AdvReac Type Severity Reaction Status Date / Time codeine Allergy Intermediate Rash Verified 10/21/22 06:24 Review of Systems Sugical H&P ROS: Negative: Cardiovascular and Respiratory and Yes, Specify: Neurological (parkinsons ), Psychiatric (much improved) and Musculoskeletal (some jt pain) Exam Surgical H&P Exam: Normal: Heart and Normal: Lungs and Significant Findings: Neurological (mild tremor) Plan Diagnosis/Plan: Unchanged I have reviewed the history and physical and performed a pertinent physical examination on my patient. No changes have occurred unless specified. Time Spent With Patient Time: Total time managing care of this patient today ____ minutes.
--- NOTE | 2022-11-11 07:56 | HO.ECTPROC ---
ECT Procedure Note Diagnosis/Treatment Date of Service: 11/11/22 Diagnosis: Major Depressive Disorder Current Treatment Number: Other (16) Treatment: Maintenance Interval Clinical Notes: Patient doing better no SI no gross psychosis some low energy Time: Total time managing care of this patient today ____ minutes. ECT Settings Device: THYMATRON DGx Program/Pulse Width: 0.25 Energy Percent: 75 Seizure Duration By EEG (in seconds): 28 Medications Administration General Anesthetic: Etomidate (12) Muscle Relaxant: Succinylcholine (140) Ancillary Medications Anti-emetics: Zofran - Pre ECT Airway Management Airway Management: Bag Mask Ventilation Treatment Recommendations No Changes Recommended: No change Notes: Some confusion postop continue follow-up Pt Tolerated Procedure w/o Issue: Yes
[2022-11-11 08:17] VITALS: BP 169/92; PULSE 87; RESP 16; TEMP 37.3; O2SAT 96
[2022-11-11 08:22] VITALS: BP 151/93; PULSE 88; RESP 18; O2SAT 96
[2022-11-11 08:27] VITALS: BP 143/90; PULSE 86; RESP 20; O2SAT 96
[2022-11-11 08:32] VITALS: BP 142/88; PULSE 87; RESP 16; O2SAT 96
[2022-11-11 08:47] VITALS: BP 144/82; PULSE 82; RESP 16; TEMP 37; O2SAT 94
== END 2022-11-11 09:15 | disposition home or self-care (01) ==
PROVIDERS: PCP Student in an Organized Health Care Education/Training Program; Visit Provider Psychiatry & Neurology Psychiatry
PROC: (CPT 90870; principal; 2022-11-11 09:30)
DX: F33.3 Major depressive disorder, recurrent, severe with psychotic symptoms (principal); G20 Parkinson's disease; K50.90 Crohn's disease, unspecified, without complications; R73.03 Prediabetes; E03.9 Hypothyroidism, unspecified; E53.8 Deficiency of other specified B group vitamins; Z79.899 Other long term (current) drug therapy; Z88.8 Allergy status to other drugs, medicaments and biological substances; Z20.822 Contact with and (suspected) exposure to COVID-19; Z87.891 Personal history of nicotine dependence
CPT/HCPCS: 87635; 90870; J0330; J2405

== ENCOUNTER 2022-11-25 05:49 | Day surgery (SDC) | payer OTHER, SELFPAY ==
[2022-11-25] VITALS (7 sets, daily range): BP systolic 144–185; BP diastolic 80–91; PULSE 71–83; RESP 16; TEMP 36.4–37.2; O2SAT 94–96; BMI 32.9
--- NOTE | 2022-11-25 06:42 | P.CONAN_ITS ---
[facility] Active Problems Active Problems: All Active Problems (Updated 08/06/22 @ 00:02 by Jody Lyons) Major depressive disorder, recurrent episode with mood-congruent psychotic features (Acute) Hypothyroidism (Acute) Vitamin B12 deficiency (Acute) Parkinsonian features (Acute) Crohn's disease (Acute) Past Medical History Medical History Crohn's disease Hypothyroidism Major depressive disorder, recurrent episode with mood-congruent psychotic features Osteoarthritis Parkinsonian features Vitamin B12 deficiency Family History Family History Father Stomach cancer Mother Dementia Family history of problems with anesthesia: No Surgical History Surgical History S/P small bowel resection History of Problems with Anesthesia: No Social History Social History Household Members: Spouse Housing: House Do you presently have visiting nurse or other home services: No Patient Tobacco Use Status: Never used Tobacco Tobacco use type: Cigarette Smoked in Last 30 Days: No Use of substances other than those prescribed or required for medical reasons: No Are you DNR?: No Advance Directives: No Advance Directives Information Provided: Yes service: Yes Sexual orientation: Straight/Heterosexual Meds Allergies Allergy/AdvReac Type Severity Reaction Status Date / Time codeine Allergy Intermediate Rash Verified 11/25/22 06:16 Exam Exam Date and Time: November 25, 2022 0642 Height,Weight and Vital Signs: Height 5 ft 8.5 in Weight 99.79 kg Last Vital Signs Temp 97.6 F 11/25/22 06:23 Pulse 71 11/25/22 06:23 Resp 16 11/25/22 06:23 BP 147/82 H 11/25/22 06:23 Pulse Ox 96 11/25/22 06:23 O2 Del Method Room Air 11/25/22 06:23 Airway Mallampati Class: II TM Dist: >3cm Neck ROM: Full Heart: rrr Lungs: cta Assessment and Plan Assessment Anesthesia Assessment: Anesthesia Plan Discussed and Chart Reviewed Final Anesthetic Review Family History of Problems with Anesthesia: No History of Problems with Anesthesia: No NPO: Yes ASA Class: III Final Preanesthetic Review: No Changes in Pt Med Stat, Meds/Allgs Chart Reviewed and Consent Obtained/Reviewed Patient Risk: Intermediate Procedure Risk: Intermediate Anesthetic Plan Anesthetic Plan: GA Disposition: Standard PACU
[2022-11-25] MEDS: Lactated Ringers 1,000 ML 50 ML IVCONT (07:03)
--- NOTE | 2022-11-25 07:09 | MHC.SHP ---
Pre-Procedural Eval Section A Date of Service: 11/25/22 Section B Chief Complaint: Major depressive disorder, recurrent, severe with Details of Present Illness: recurrent depression improved but flat alert Relevant Social History: None Present Medications: see Short Stay Collaborative assessment Medical History: Significant History (parkinsons ) History of Previous Operations: No relevant previous surgery (ect) Allergies: Allergies Allergy/AdvReac Type Severity Reaction Status Date / Time codeine Allergy Intermediate Rash Verified 11/25/22 06:16 Review of Systems Sugical H&P ROS: Negative: Cardiovascular and Respiratory and Yes, Specify: Neurological (parkinsons ), Psychiatric (flat) and Musculoskeletal (some jt pain) Exam Surgical H&P Exam: Normal: Heart (rr) and Normal: Lungs (clear) and Significant Findings: Neurological (mild tremor) Plan Diagnosis/Plan: Unchanged I have reviewed the history and physical and performed a pertinent physical examination on my patient. No changes have occurred unless specified. Time Spent With Patient Time: Total time managing care of this patient today ____ minutes.
--- NOTE | 2022-11-25 07:29 | HO.ECTPROC ---
ECT Procedure Note Diagnosis/Treatment Date of Service: 11/25/22 Diagnosis: Major Depressive Disorder Previous ECT Date: 11/11/22 Current Treatment Number: Other (17) Treatment: Maintenance Interval Clinical Notes: Patient doing better no SI no gross psychosis some low energy continues no sig confusion Time: Total time managing care of this patient today ____ minutes. ECT Settings Device: THYMATRON DGx Electrode Placement: Rt temporal/ Lt frontal Program/Pulse Width: 0.25 Energy Percent: 100 Seizure Duration By EEG (in seconds): 29 Medications Administration General Anesthetic: Etomidate (12) Muscle Relaxant: Succinylcholine (120) Airway Management Airway Management: Bag Mask Ventilation Treatment Recommendations Program/Pulse Width: 0.50 Notes: hold lithium nite before will discuss situation with Pt Tolerated Procedure w/o Issue: Yes
== END 2022-11-25 08:35 | disposition home or self-care (01) ==
PROVIDERS: PCP Student in an Organized Health Care Education/Training Program; Visit Provider Psychiatry & Neurology Psychiatry
PROC: (CPT 90870; principal; 2022-11-25 07:00)
DX: F33.2 Major depressive disorder, recurrent severe without psychotic features (principal); G20 Parkinson's disease; K50.90 Crohn's disease, unspecified, without complications; E03.9 Hypothyroidism, unspecified; E53.8 Deficiency of other specified B group vitamins; Z79.899 Other long term (current) drug therapy; Z88.8 Allergy status to other drugs, medicaments and biological substances
CPT/HCPCS: 90870; J0330; J2405

== ENCOUNTER → 2022-11-29 15:21 | Outpatient (BNVA) | payer OTHER, SELFPAY | PROVIDERS: PCP Student in an Organized Health Care Education/Training Program; Visit Provider Psychiatry & Neurology Psychiatry | DX: F33.41 Major depressive disorder, recurrent, in partial remission (principal); F06.1 Catatonic disorder due to known physiological condition; G20 Parkinson's disease; E53.8 Deficiency of other specified B group vitamins | CPT/HCPCS: 90833; 99212 ==

== ENCOUNTER 2022-12-02 05:51 | Day surgery (SDC) | payer OTHER, SELFPAY ==
[2022-12-02 06:14] VITALS: BP 145/82; PULSE 66; RESP 16; TEMP 36.3; O2SAT 96; BMI 32.5
--- NOTE | 2022-12-02 07:04 | HO.ANESPROP2 ---
[facility] Active Problems Active Problems: All Active Problems (Updated 08/06/22 @ 00:02 by Jody Lyons) Major depressive disorder, recurrent episode with mood-congruent psychotic features (Acute) Hypothyroidism (Acute) Vitamin B12 deficiency (Acute) Parkinsonian features (Acute) Crohn's disease (Acute) Past Medical History Medical History Crohn's disease Hypothyroidism Major depressive disorder, recurrent episode with mood-congruent psychotic features Osteoarthritis Parkinsonian features Vitamin B12 deficiency Family History Family History Father Stomach cancer Mother Dementia Family history of problems with anesthesia: No Surgical History Surgical History S/P small bowel resection History of Problems with Anesthesia: No Social History Social History Household Members: Spouse Housing: House Do you presently have visiting nurse or other home services: No Patient Tobacco Use Status: Never used Tobacco Tobacco use type: Cigarette Use of substances other than those prescribed or required for medical reasons: No Are you DNR?: No Advance Directives: No Advance Directives Information Provided: Yes service: Yes Sexual orientation: Straight/Heterosexual Meds Allergies Allergy/AdvReac Type Severity Reaction Status Date / Time codeine Allergy Intermediate Rash Verified 12/02/22 06:13 Exam Exam Date and Time: December 02, 2022 0704 Height,Weight and Vital Signs: Height 5 ft 8.5 in Weight 98.43 kg Last Vital Signs Temp 97.4 F 12/02/22 06:14 Pulse 66 12/02/22 06:14 Resp 16 12/02/22 06:14 BP 145/82 H 12/02/22 06:14 Pulse Ox 96 12/02/22 06:14 O2 Del Method Room Air 12/02/22 06:14 Airway Mallampati Class: II TM Dist: >3cm Loose/Missing/Broken Teeth: No Heart: RRR Lungs: CTA Assessment and Plan Assessment Anesthesia Assessment: Anesthesia Plan Discussed and Chart Reviewed Final Anesthetic Review Family History of Problems with Anesthesia: No History of Problems with Anesthesia: No NPO: Yes ASA Class: II Final Preanesthetic Review: Meds/Allgs Chart Reviewed, Consent Obtained/Reviewed and Anes Risks/Benef Reviewed Patient Risk: Low Procedure Risk: Intermediate Anesthetic Plan Anesthetic Plan: GA Disposition: Standard PACU
--- NOTE | 2022-12-02 07:04 | MHC.SHP ---
Pre-Procedural Eval Section A Date of Service: 12/02/22 Section B Chief Complaint: Major depressive disorder, recurrent, severe with Details of Present Illness: recurrent depression improved but flat alert Relevant Social History: None Present Medications: see Short Stay Collaborative assessment Medical History: Significant History (parkinsons ) History of Previous Operations: No relevant previous surgery (ect) Allergies: Allergies Allergy/AdvReac Type Severity Reaction Status Date / Time codeine Allergy Intermediate Rash Verified 12/02/22 06:13 Review of Systems Sugical H&P ROS: Negative: Cardiovascular and Respiratory and Yes, Specify: Neurological (parkinsons ), Psychiatric (flat anxious) and Musculoskeletal Exam Surgical H&P Exam: Normal: Heart (rr no murmur) and Normal: Lungs (clear) and Significant Findings: Neurological (mild tremor) Plan Diagnosis/Plan: Unchanged I have reviewed the history and physical and performed a pertinent physical examination on my patient. No changes have occurred unless specified. Time Spent With Patient Time: Total time managing care of this patient today ____ minutes.
--- NOTE | 2022-12-02 07:23 | HO.ECTPROC ---
ECT Procedure Note Diagnosis/Treatment Date of Service: 12/02/22 Diagnosis: Major Depressive Disorder Previous ECT Date: 11/25/22 Current Treatment Number: Other (18) Treatment: Maintenance Interval Clinical Notes: Patient doing better no SI no gross psychosis some low energy continues no sig confusion periods of dysphoria Time: Total time managing care of this patient today ____ minutes. ECT Settings Device: THYMATRON DGx Electrode Placement: Bitemporal Program/Pulse Width: 0.50 Energy Percent: 100 Seizure Duration By EEG (in seconds): 51 Medications Administration General Anesthetic: Etomidate (12) Muscle Relaxant: Succinylcholine (140) Ancillary Medications Anti-emetics: Zofran - Pre ECT Airway Management Airway Management: Bag Mask Ventilation Treatment Recommendations No Changes Recommended: No change Electrode Placement: Bitemporal Program/Pulse Width: 0.50 Notes: hold lithium nite prior Pt Tolerated Procedure w/o Issue: Yes
[2022-12-02 07:26] VITALS: BP 154/74; PULSE 65; RESP 16; TEMP 36.8; O2SAT 95
[2022-12-02 07:31] VITALS: BP 153/87; PULSE 79; RESP 16; O2SAT 97
[2022-12-02 07:36] VITALS: BP 162/89; PULSE 69; RESP 16; O2SAT 96
[2022-12-02 07:41] VITALS: BP 156/85; PULSE 97; RESP 16; O2SAT 98
[2022-12-02 07:56] VITALS: BP 155/88; PULSE 69; RESP 16; TEMP 36.8; O2SAT 98
== END 2022-12-02 08:25 | disposition home or self-care (01) ==
PROVIDERS: PCP Student in an Organized Health Care Education/Training Program; Visit Provider Psychiatry & Neurology Psychiatry
PROC: (CPT 90870; principal; 2022-12-02 07:30)
DX: F33.2 Major depressive disorder, recurrent severe without psychotic features (principal); Z88.5 Allergy status to narcotic agent
CPT/HCPCS: 90870; J0330; J2405

== ENCOUNTER 2022-12-07 05:50 | Day surgery (SDC) | payer OTHER, SELFPAY ==
[2022-12-07 06:40] VITALS: BP 155/86; PULSE 68; RESP 18; TEMP 36.7; O2SAT 95; BMI 33.0
--- NOTE | 2022-12-07 06:47 | P.CONAN_ITS ---
[facility] Active Problems Active Problems: All Active Problems (Updated 08/06/22 @ 00:02 by Jody Wrenjacobo) Major depressive disorder, recurrent episode with mood-congruent psychotic features (Acute) Hypothyroidism (Acute) Vitamin B12 deficiency (Acute) Parkinsonian features (Acute) Crohn's disease (Acute) Past Medical History Medical History Crohn's disease Hypothyroidism Major depressive disorder, recurrent episode with mood-congruent psychotic features Osteoarthritis Parkinsonian features Vitamin B12 deficiency Family History Family History Father Stomach cancer Mother Dementia Family history of problems with anesthesia: No Surgical History Surgical History S/P small bowel resection History of Problems with Anesthesia: Unobtainable Social History Social History Household Members: Spouse Housing: House Do you presently have visiting nurse or other home services: No Patient Tobacco Use Status: Never used Tobacco Tobacco use type: Cigarette Advance Directives: No Advance Directives Information Provided: Yes service: Yes Sexual orientation: Straight/Heterosexual Meds Allergies Allergy/AdvReac Type Severity Reaction Status Date / Time codeine Allergy Intermediate Rash Verified 12/02/22 06:13 Exam Exam Date and Time: December 07, 2022 0647 Height,Weight and Vital Signs: Height 5 ft 8 in Weight 98.43 kg Last Vital Signs Temp 98.1 F 12/07/22 06:40 Pulse 68 12/07/22 06:40 Resp 18 12/07/22 06:40 BP 155/86 H 12/07/22 06:40 Pulse Ox 95 12/07/22 06:40 O2 Del Method Room Air 12/07/22 06:40 Airway Mallampati Class: II TM Dist: >3cm Neck ROM: Full Heart: rrr Lungs: cta Assessment and Plan Assessment Anesthesia Assessment: Anesthesia Plan Discussed and Chart Reviewed Final Anesthetic Review Family History of Problems with Anesthesia: No History of Problems with Anesthesia: Unobtainable NPO: Yes ASA Class: III Final Preanesthetic Review: No Changes in Pt Med Stat, Meds/Allgs Chart Reviewed and Consent Obtained/Reviewed Patient Risk: Intermediate Procedure Risk: Intermediate Anesthetic Plan Anesthetic Plan: GA Disposition: Standard PACU
--- NOTE | 2022-12-07 07:46 | MHC.SHP ---
Pre-Procedural Eval Section A Date of Service: 12/07/22 Section B Chief Complaint: Major depressive disorder, recurrent Details of Present Illness: recurrent depression Relevant Social History: None Present Medications: see Short Stay Collaborative assessment Medical History: Significant History (parkinsons crohns disease) Allergies: Allergies Allergy/AdvReac Type Severity Reaction Status Date / Time codeine Allergy Intermediate Rash Verified 12/02/22 06:13 Review of Systems Sugical H&P ROS: Negative: Cardiovascular and Respiratory and Yes, Specify: Constitution, Neurological (tremor), Psychiatric (depression) and Musculoskeletal (knee pain) Exam Surgical H&P Exam: Normal: Heart and Normal: Lungs and Significant Findings: Neurological (mild tremor) Plan Diagnosis/Plan: Unchanged I have reviewed the history and physical and performed a pertinent physical examination on my patient. No changes have occurred unless specified. Time Spent With Patient Time: Total time managing care of this patient today ____ minutes.
[2022-12-07 07:49] VITALS: BP 167/80; PULSE 66; RESP 16; TEMP 37.1; O2SAT 95
[2022-12-07 07:54] VITALS: BP 159/81; PULSE 78; RESP 16; O2SAT 95
--- NOTE | 2022-12-07 07:54 | HO.ECTPROC ---
ECT Procedure Note Diagnosis/Treatment Date of Service: 12/07/22 Diagnosis: Major Depressive Disorder Previous ECT Date: 12/02/22 Current Treatment Number: Other (19) Treatment: Maintenance Interval Clinical Notes: pt with periods of dysphoria Time: Total time managing care of this patient today ____ minutes. ECT Settings Device: THYMATRON DGx Electrode Placement: Bitemporal Program/Pulse Width: 0.50 Energy Percent: 100 Seizure Duration By EEG (in seconds): 49 Medications Administration General Anesthetic: Etomidate (12) Muscle Relaxant: Succinylcholine (140) Ancillary Medications Anti-emetics: Zofran - Pre ECT Miscillaneous Medications: Propofol (30) Airway Management Airway Management: Bag Mask Ventilation Treatment Recommendations No Changes Recommended: No change Notes: f/u tx 1 week BT tx Pt Tolerated Procedure w/o Issue: Yes
[2022-12-07 07:59] VITALS: BP 174/88; PULSE 72; RESP 16; O2SAT 95
[2022-12-07 08:04] VITALS: BP 166/88; PULSE 73; RESP 16; TEMP 36.9; O2SAT 95
[2022-12-07 08:19] VITALS: BP 156/100; PULSE 71; RESP 16; TEMP 37; O2SAT 93
== END 2022-12-07 08:41 | disposition home or self-care (01) ==
PROVIDERS: PCP Student in an Organized Health Care Education/Training Program; Visit Provider Psychiatry & Neurology Psychiatry
PROC: (CPT 90870; principal; 2022-12-07 07:30)
DX: F33.2 Major depressive disorder, recurrent severe without psychotic features (principal); G20 Parkinson's disease; K50.90 Crohn's disease, unspecified, without complications; E53.8 Deficiency of other specified B group vitamins; Z79.899 Other long term (current) drug therapy; Z88.8 Allergy status to other drugs, medicaments and biological substances
CPT/HCPCS: 90870; J0330; J2405

== ENCOUNTER 2022-12-16 07:32 | Day surgery (SDC) | payer OTHER, SELFPAY ==
[2022-12-16] VITALS (7 sets, daily range): BP systolic 140–190; BP diastolic 86–102; PULSE 71–83; RESP 14–17; TEMP 36.4–37.3; O2SAT 96–100; BMI 32.7
--- NOTE | 2022-12-16 08:49 | HO.ANESPROP2 ---
FORMERLY [facility] Active Problems Active Problems: All Active Problems (Updated 08/06/22 @ 00:02 by Jody Lyons) Major depressive disorder, recurrent episode with mood-congruent psychotic features (Acute) Hypothyroidism (Acute) Vitamin B12 deficiency (Acute) Parkinsonian features (Acute) Crohn's disease (Acute) Past Medical History Medical History Crohn's disease Hypothyroidism Major depressive disorder, recurrent episode with mood-congruent psychotic features Osteoarthritis Parkinsonian features Vitamin B12 deficiency Family History Family History Father Stomach cancer Mother Dementia Family history of problems with anesthesia: No Surgical History Surgical History S/P small bowel resection History of Problems with Anesthesia: Unobtainable Social History Social History Household Members: Spouse Housing: House Do you presently have visiting nurse or other home services: No Patient Tobacco Use Status: Never used Tobacco Tobacco use type: Cigarette Advance Directives: No Advance Directives Information Provided: Yes service: Yes Sexual orientation: Straight/Heterosexual Meds Allergies Allergy/AdvReac Type Severity Reaction Status Date / Time codeine Allergy Intermediate Rash Verified 12/02/22 06:13 Active Medications: Current Medications Lactated Ringer's (Lr) 1,000 mls @ 50 mls/hr IVCONT .Q20H [facility] Exam Exam Date and Time: December 16, 2022 0849 Height,Weight and Vital Signs: Height 5 ft 8 in Weight 97.522 kg Last Vital Signs Temp 97.5 F 12/16/22 08:30 Pulse 72 12/16/22 08:30 Resp 16 12/16/22 08:30 BP 155/86 H 12/16/22 08:30 Pulse Ox 96 12/16/22 08:30 O2 Del Method Room Air 12/16/22 08:30 Airway Mallampati Class: II TM Dist: >3cm Neck ROM: Full Heart: rrr Lungs: cta Assessment and Plan Assessment Anesthesia Assessment: Anesthesia Plan Discussed and Chart Reviewed Final Anesthetic Review Family History of Problems with Anesthesia: No History of Problems with Anesthesia: Unobtainable NPO: Yes ASA Class: III Final Preanesthetic Review: No Changes in Pt Med Stat, Meds/Allgs Chart Reviewed and Consent Obtained/Reviewed Patient Risk: Intermediate Procedure Risk: Intermediate Anesthetic Plan Anesthetic Plan: GA Disposition: Standard PACU
--- NOTE | 2022-12-16 09:58 | MHC.SHP ---
Pre-Procedural Eval Section A Date of Service: 12/16/22 Section B Chief Complaint: Major depressive disorder, recurrent, severe Details of Present Illness: recurrent depression Relevant Social History: None Present Medications: see Short Stay Collaborative assessment Medical History: Significant History (parkinsons crohns disease) Allergies: Allergies Allergy/AdvReac Type Severity Reaction Status Date / Time codeine Allergy Intermediate Rash Verified 12/02/22 06:13 Review of Systems Sugical H&P ROS: Negative: Cardiovascular and Respiratory and Yes, Specify: Constitution, Neurological (tremor), Psychiatric (depression) and Musculoskeletal (knee pain) Exam Surgical H&P Exam: Normal: Heart and Normal: Lungs and Significant Findings: Neurological (mild tremor) Plan Diagnosis/Plan: Unchanged I have reviewed the history and physical and performed a pertinent physical examination on my patient. No changes have occurred unless specified. Time Spent With Patient Time: Total time managing care of this patient today ____ minutes.
--- NOTE | 2022-12-16 16:57 | HO.ECTPROC ---
ECT Procedure Note Diagnosis/Treatment Date of Service: 12/16/22 Diagnosis: Major Depressive Disorder Previous ECT Date: 12/07/22 Treatment: Maintenance Interval Clinical Notes: pt has intermittant breakthrough sx lethargy amotivation Time: Total time managing care of this patient today ____ minutes. ECT Settings Device: THYMATRON DGx Program/Pulse Width: 0.25 Energy Percent: 100 Seizure Duration By EEG (in seconds): 32 Medications Administration General Anesthetic: Etomidate (12) Muscle Relaxant: Succinylcholine (140) Airway Management Airway Management: Bag Mask Ventilation Treatment Recommendations Program/Pulse Width: 0.50 Energy Percent: 100 Notes: [facility] had [facility] to try and coordinate care may need additional augmentation with medication trying to balance ECT with memory and cognition Pt Tolerated Procedure w/o Issue: Yes
== END 2022-12-16 11:19 | disposition home or self-care (01) ==
PROVIDERS: PCP Student in an Organized Health Care Education/Training Program; Visit Provider Psychiatry & Neurology Psychiatry
PROC: (CPT 90870; principal; 2022-12-16 15:30)
DX: F33.3 Major depressive disorder, recurrent, severe with psychotic symptoms (principal); G20 Parkinson's disease; E03.9 Hypothyroidism, unspecified; E53.8 Deficiency of other specified B group vitamins; K50.90 Crohn's disease, unspecified, without complications; Z79.899 Other long term (current) drug therapy; Z88.8 Allergy status to other drugs, medicaments and biological substances; Z90.49 Acquired absence of other specified parts of digestive tract
CPT/HCPCS: 90870; J0330; J2405

== ENCOUNTER 2022-12-28 05:49 | Day surgery (SDC) | payer OTHER, SELFPAY ==
[2022-12-28] VITALS (8 sets, daily range): BP systolic 132–159; BP diastolic 76–87; PULSE 64–77; RESP 14–19; TEMP 36.1–36.4; O2SAT 96–99; BMI 31.9
--- NOTE | 2022-12-28 06:48 | P.CONAN_ITS ---
[facility] Active Problems Active Problems: All Active Problems (Updated 08/06/22 @ 00:02 by Jody Lyons) Major depressive disorder, recurrent episode with mood-congruent psychotic features (Acute) Hypothyroidism (Acute) Vitamin B12 deficiency (Acute) Parkinsonian features (Acute) Crohn's disease (Acute) Past Medical History Medical History Crohn's disease Hypothyroidism Major depressive disorder, recurrent episode with mood-congruent psychotic features Osteoarthritis Parkinsonian features Vitamin B12 deficiency Family History Family History Father Stomach cancer Mother Dementia Family history of problems with anesthesia: No Surgical History Surgical History S/P small bowel resection History of Problems with Anesthesia: Unobtainable Social History Social History Household Members: Spouse Housing: House Do you presently have visiting nurse or other home services: No Patient Tobacco Use Status: Never used Tobacco Tobacco use type: Cigarette Advance Directives: No Advance Directives Information Provided: Yes service: Yes Sexual orientation: Straight/Heterosexual Meds Allergies Allergy/AdvReac Type Severity Reaction Status Date / Time codeine Allergy Intermediate Rash Verified 12/02/22 06:13 Exam Exam Date and Time: December 28, 2022 0648 Height,Weight and Vital Signs: Height 5 ft 8 in Weight 95.254 kg Last Vital Signs Temp 97 F 12/28/22 06:34 Pulse 70 12/28/22 06:34 Resp 16 12/28/22 06:34 BP 136/82 12/28/22 06:34 Pulse Ox 96 12/28/22 06:34 O2 Del Method Room Air 12/28/22 06:34 Airway Mallampati Class: II TM Dist: >3cm Neck ROM: Full Heart: rrr Lungs: cta Assessment and Plan Assessment Anesthesia Assessment: Anesthesia Plan Discussed and Chart Reviewed Final Anesthetic Review Family History of Problems with Anesthesia: No History of Problems with Anesthesia: Unobtainable NPO: Yes ASA Class: III Final Preanesthetic Review: No Changes in Pt Med Stat, Meds/Allgs Chart Reviewed and Consent Obtained/Reviewed Patient Risk: Intermediate Procedure Risk: Intermediate Anesthetic Plan Anesthetic Plan: GA Disposition: Standard PACU
--- NOTE | 2022-12-28 07:26 | P.HPSUR_ITS ---
Pre-Procedural Eval Section A Date of Service: 12/28/22 The patient is an INPATIENT: No Changes since office visit: Yes New Medical Problems, Yes Changes in Medication and Yes Patient answered all questions; No Cold of Flu in the past 2 weeks Section B Chief Complaint: Major depressive disorder, recurrent, severe Details of Present Illness: recurrent depression balance issues Relevant Social History: None Present Medications: see Short Stay Collaborative assessment Medical History: Significant History (parkinsons crohns disease) Allergies: Allergies Allergy/AdvReac Type Severity Reaction Status Date / Time codeine Allergy Intermediate Rash Verified 12/02/22 06:13 Review of Systems Sugical H&P ROS: Negative: Cardiovascular and Respiratory and Yes, Specify: Constitution, Neurological (tremor), Psychiatric (depression) and Muscu loskeletal (knee pain) Exam Surgical H&P Exam: Normal: Heart and Normal: Lungs and Significant Findings: Neurological (mild tremor) Plan Diagnosis/Plan: Unchanged I have reviewed the history and physical and performed a pertinent physical examination on my patient. No changes have occurred unless specified. Time Spent With Patient Time: Total time managing care of this patient today ____ minutes.
--- NOTE | 2022-12-28 07:50 | HO.ECTPROC ---
ECT Procedure Note Diagnosis/Treatment Date of Service: 12/28/22 Diagnosis: Major Depressive Disorder Treatment: Maintenance Interval Clinical Notes: pt with some improvement noted no c/o side effects Time: Total time managing care of this patient today ____ minutes. ECT Settings Device: THYMATRON DGx Electrode Placement: Rt temporal/ Lt frontal Program/Pulse Width: 0.50 Energy Percent: 100 Seizure Duration By EEG (in seconds): 55 Medications Administration General Anesthetic: Etomidate (14) Muscle Relaxant: Succinylcholine (120) Ancillary Medications Anti-emetics: Zofran - Pre ECT Airway Management Airway Management: Bag Mask Ventilation Treatment Recommendations No Changes Recommended: No change Pt Tolerated Procedure w/o Issue: Yes
[2022-12-28] MEDS: Acetaminophen 325 MG TABLET 650 MG PO (08:48)
== END 2022-12-28 09:24 | disposition home or self-care (01) ==
PROVIDERS: PCP Student in an Organized Health Care Education/Training Program; Visit Provider Psychiatry & Neurology Psychiatry
PROC: (CPT 90870; principal; 2022-12-28 08:00)
DX: F33.3 Major depressive disorder, recurrent, severe with psychotic symptoms (principal); G20 Parkinson's disease; E03.9 Hypothyroidism, unspecified; E53.8 Deficiency of other specified B group vitamins; K50.90 Crohn's disease, unspecified, without complications; Z79.899 Other long term (current) drug therapy; Z88.8 Allergy status to other drugs, medicaments and biological substances; Z90.49 Acquired absence of other specified parts of digestive tract
CPT/HCPCS: 90870; J0330; J2405

== ENCOUNTER 2023-01-06 05:48 | Day surgery (SDC) | payer OTHER, SELFPAY ==
[2023-01-06] VITALS (7 sets, daily range): BP systolic 139–187; BP diastolic 76–88; PULSE 62–79; RESP 12–18; TEMP 36.3–36.9; O2SAT 96–97; BMI 31.9
--- NOTE | 2023-01-06 06:49 | P.CONAN_ITS ---
[facility] Active Problems Active Problems: All Active Problems (Updated 01/01/23 @ 15:56 by Tee Urbina MD) Major depressive disorder, recurrent episode, in partial remission with catatonia (Acute) Parkinson's disease (tremor, stiffness, slow motion, unstable posture) (Acute) Major depressive disorder, recurrent episode with mood-congruent psychotic features (Acute) Hypothyroidism (Acute) Vitamin B12 deficiency (Acute) Parkinsonian features (Acute) Crohn's disease (Acute) Past Medical History Medical History (Updated 01/01/23 @ 15:56 by Tee Urbina MD) Crohn's disease Hypothyroidism Major depressive disorder, recurrent episode with mood-congruent psychotic features Osteoarthritis Parkinson's disease (tremor, stiffness, slow motion, unstable posture) Parkinsonian features Vitamin B12 deficiency Family History Family History Father Stomach cancer Mother Dementia Family history of problems with anesthesia: No Surgical History Surgical History S/P small bowel resection History of Problems with Anesthesia: No Social History Social History Household Members: Spouse Housing: House Do you presently have visiting nurse or other home services: No Patient Tobacco Use Status: Never used Tobacco Tobacco use type: Cigarette service: Yes Sexual orientation: Straight/Heterosexual Meds Allergies Allergy/AdvReac Type Severity Reaction Status Date / Time codeine Allergy Intermediate Rash Verified 12/02/22 06:13 Exam Exam Date and Time: January 06, 2023 0649 Height,Weight and Vital Signs: Height 5 ft 8 in Weight 95.254 kg Last Vital Signs Temp 97.6 F 01/06/23 05:59 Pulse 62 01/06/23 05:59 Resp 18 01/06/23 05:59 BP 139/76 01/06/23 05:59 Pulse Ox 96 01/06/23 05:59 O2 Del Method Room Air 01/06/23 05:59 Airway Mallampati Class: II TM Dist: >3cm Neck ROM: Full Heart: rrr Lungs: cta Assessment and Plan Assessment Anesthesia Assessment: Anesthesia Plan Discussed and Chart Reviewed Final Anesthetic Review Family History of Problems with Anesthesia: No History of Problems with Anesthesia: No NPO: Yes ASA Class: III Final Preanesthetic Review: No Changes in Pt Med Stat, Meds/Allgs Chart Reviewed and Consent Obtained/Reviewed Patient Risk: Intermediate Procedure Risk: Intermediate Anesthetic Plan Anesthetic Plan: GA Disposition: Standard PACU
[2023-01-06] MEDS: Lactated Ringers 1,000 ML 50 ML IVCONT (07:11)
--- NOTE | 2023-01-06 07:11 | MHC.SHP ---
Pre-Procedural Eval Section A Date of Service: 01/06/23 The patient is an INPATIENT: No Changes since office visit: Yes Patient answered all questions; No Cold of Flu in the past 2 weeks, No New Medical Problems and No Changes in Medication Section B Chief Complaint: depression disorder Details of Present Illness: recurrent depression balance issues improved mood Relevant Social History: None Present Medications: see Short Stay Collaborative assessment Medical History: Significant History (parkinsons crohns disease) Allergies: Allergies Allergy/AdvReac Type Severity Reaction Status Date / Time codeine Allergy Intermediate Rash Verified 12/02/22 06:13 Review of Systems Sugical H&P ROS: Negative: Cardiovascular and Respiratory and Yes, Specify: Constitution, Neurological (tremor), Psychiatric (depression) and Musculoskeletal (knee pain) Exam Surgical H&P Exam: Normal: Heart and Normal: Lungs and Significant Findings: Neurological (mild tremor) Plan Diagnosis/Plan: Unchanged I have reviewed the history and physical and performed a pertinent physical examination on my patient. No changes have occurred unless specified. Time Spent With Patient Time: Total time managing care of this patient today ____ minutes.
--- NOTE | 2023-01-06 07:12 | HO.ECTPROC ---
ECT Procedure Note Diagnosis/Treatment Date of Service: 01/10/23 Diagnosis: Major Depressive Disorder Previous ECT Date: 12/28/22 Treatment: Maintenance Interval Clinical Notes: pt states generally feeling well sinemet remains tid at relatively low doses Time: Total time managing care of this patient today ____ minutes. ECT Settings Device: THYMATRON DGx Electrode Placement: Rt temporal/ Lt frontal Program/Pulse Width: 0.50 Energy Percent: 100 Seizure Duration By EEG (in seconds): 50 Medications Administration General Anesthetic: Etomidate (12) Muscle Relaxant: Succinylcholine (140) Airway Management Airway Management: Bag Mask Ventilation Treatment Recommendations No Changes Recommended: No change Notes: f/u tx 2 weeks some confusion post Pt Tolerated Procedure w/o Issue: Yes
== END 2023-01-06 09:00 | disposition home or self-care (01) ==
PROVIDERS: PCP Student in an Organized Health Care Education/Training Program; Visit Provider Psychiatry & Neurology Psychiatry
PROC: (CPT 90870; principal; 2023-01-06 07:30)
DX: F33.41 Major depressive disorder, recurrent, in partial remission (principal); F06.1 Catatonic disorder due to known physiological condition; G20 Parkinson's disease; K50.90 Crohn's disease, unspecified, without complications; E03.9 Hypothyroidism, unspecified; Z79.899 Other long term (current) drug therapy
CPT/HCPCS: 90870; J0330; J2405

== ENCOUNTER 2023-01-25 05:56 | Day surgery (SDC) | payer OTHER, SELFPAY ==
[2023-01-25] VITALS (8 sets, daily range): BP systolic 151–171; BP diastolic 77–95; PULSE 64–77; RESP 16–20; TEMP 36.3–36.7; O2SAT 94–99; BMI 31.9
--- NOTE | 2023-01-25 06:47 | HO.ANESPROP2 ---
[facility] Active Problems Active Problems: All Active Problems (Updated 01/01/23 @ 15:56 by Tee Urbina MD) Major depressive disorder, recurrent episode, in partial remission with catatonia (Acute) Parkinson's disease (tremor, stiffness, slow motion, unstable posture) (Acute) Major depressive disorder, recurrent episode with mood-congruent psychotic features (Acute) Hypothyroidism (Acute) Vitamin B12 deficiency (Acute) Parkinsonian features (Acute) Crohn's disease (Acute) Past Medical History Medical History (Updated 01/01/23 @ 15:56 by Tee Urbina MD) Crohn's disease Hypothyroidism Major depressive disorder, recurrent episode with mood-congruent psychotic features Osteoarthritis Parkinson's disease (tremor, stiffness, slow motion, unstable posture) Parkinsonian features Vitamin B12 deficiency Family History Family History Father Stomach cancer Mother Dementia Family history of problems with anesthesia: No Surgical History Surgical History S/P small bowel resection History of Problems with Anesthesia: No Social History Social History Household Members: Spouse Housing: House Do you presently have visiting nurse or other home services: No Patient Tobacco Use Status: Never used Tobacco Tobacco use type: Cigarette Advance Directives: No Advance Directives Information Provided: Yes service: Yes Sexual orientation: Straight/Heterosexual Meds Allergies Allergy/AdvReac Type Severity Reaction Status Date / Time codeine Allergy Intermediate Rash Verified 12/02/22 06:13 Active Medications: Current Medications Lactated Ringer's (Lr) 1,000 mls @ 50 mls/hr IVCONT .Q20H [facility] Exam Exam Date and Time: January 25, 2023 0647 Height,Weight and Vital Signs: Height 5 ft 8 in Weight 95.254 kg Last Vital Signs Temp 97.9 F 01/25/23 06:32 Pulse 64 01/25/23 06:32 Resp 16 01/25/23 06:32 BP 152/81 H 01/25/23 06:32 Pulse Ox 95 01/25/23 06:32 O2 Del Method Room Air 01/25/23 06:32 Airway Mallampati Class: II TM Dist: >3cm Neck ROM: Full Heart: rrr Lungs: cta Assessment and Plan Assessment Anesthesia Assessment: Anesthesia Plan Discussed and Chart Reviewed Final Anesthetic Review Family History of Problems with Anesthesia: No History of Problems with Anesthesia: No NPO: Yes ASA Class: III Final Preanesthetic Review: No Changes in Pt Med Stat, Meds/Allgs Chart Reviewed and Consent Obtained/Reviewed Patient Risk: Intermediate Procedure Risk: Intermediate Anesthetic Plan Anesthetic Plan: GA Disposition: Standard PACU
--- NOTE | 2023-01-25 06:48 | HO.ANESPROP2 ---
[facility] Active Problems Active Problems: All Active Problems (Updated 01/01/23 @ 15:56 by Tee Urbina MD) Major depressive disorder, recurrent episode, in partial remission with catatonia (Acute) Parkinson's disease (tremor, stiffness, slow motion, unstable posture) (Acute) Major depressive disorder, recurrent episode with mood-congruent psychotic features (Acute) Hypothyroidism (Acute) Vitamin B12 deficiency (Acute) Parkinsonian features (Acute) Crohn's disease (Acute) Past Medical History Medical History (Updated 01/01/23 @ 15:56 by Tee Urbina MD) Crohn's disease Hypothyroidism Major depressive disorder, recurrent episode with mood-congruent psychotic features Osteoarthritis Parkinson's disease (tremor, stiffness, slow motion, unstable posture) Parkinsonian features Vitamin B12 deficiency Family History Family History Father Stomach cancer Mother Dementia Family history of problems with anesthesia: No Surgical History Surgical History S/P small bowel resection History of Problems with Anesthesia: No Social History Social History Household Members: Spouse Housing: House Do you presently have visiting nurse or other home services: No Patient Tobacco Use Status: Never used Tobacco Tobacco use type: Cigarette Advance Directives: No Advance Directives Information Provided: Yes service: Yes Sexual orientation: Straight/Heterosexual Meds Allergies Allergy/AdvReac Type Severity Reaction Status Date / Time codeine Allergy Intermediate Rash Verified 12/02/22 06:13 Active Medications: Current Medications Lactated Ringer's (Lr) 1,000 mls @ 50 mls/hr IVCONT .Q20H [facility] Exam Exam Date and Time: January 25, 2023 0648 Height,Weight and Vital Signs: Height 5 ft 8 in Weight 95.254 kg Last Vital Signs Temp 97.9 F 01/25/23 06:32 Pulse 64 01/25/23 06:32 Resp 16 01/25/23 06:32 BP 152/81 H 01/25/23 06:32 Pulse Ox 95 01/25/23 06:32 O2 Del Method Room Air 01/25/23 06:32 Airway Mallampati Class: II TM Dist: >3cm Neck ROM: Full Heart: rrr Lungs: cta Assessment and Plan Assessment Anesthesia Assessment: Anesthesia Plan Discussed and Chart Reviewed Final Anesthetic Review Family History of Problems with Anesthesia: No History of Problems with Anesthesia: No NPO: Yes ASA Class: III Final Preanesthetic Review: No Changes in Pt Med Stat, Meds/Allgs Chart Reviewed and Consent Obtained/Reviewed Patient Risk: Intermediate Procedure Risk: Intermediate Anesthetic Plan Anesthetic Plan: GA Disposition: Standard PACU
--- NOTE | 2023-01-25 07:26 | MHC.SHP ---
Pre-Procedural Eval Section A Date of Service: 01/25/23 The patient is an INPATIENT: No Changes since office visit: Yes Patient answered all questions; No Cold of Flu in the past 2 weeks, No New Medical Problems and No Changes in Medication Section B Chief Complaint: depression disorder Details of Present Illness: recurrent depression balance issues improved mood Relevant Social History: None Present Medications: see Short Stay Collaborative assessment Medical History: Significant History (parkinsons crohns disease) Allergies: Allergies Allergy/AdvReac Type Severity Reaction Status Date / Time codeine Allergy Intermediate Rash Verified 12/02/22 06:13 Review of Systems Sugical H&P ROS: Negative: Cardiovascular, Respiratory and Psychiatric (mood stable) and Yes, Specify: Constitution, Neurological (tremor) and Musculoskeletal (knee pain) Exam Surgical H&P Exam: Normal: Heart and Normal: Lungs and Significant Findings: Neurological (mild tremor) Exam Comment: full affect no confusion Plan Diagnosis/Plan: Unchanged I have reviewed the history and physical and performed a pertinent physical examination on my patient. No changes have occurred unless specified. Time Spent With Patient Time: Total time managing care of this patient today ____ minutes.
--- NOTE | 2023-01-25 07:35 | HO.ECTPROC ---
ECT Procedure Note Diagnosis/Treatment Date of Service: 01/25/23 Diagnosis: Major Depressive Disorder Previous ECT Date: 01/11/23 Current Treatment Number: Other Treatment: Maintenance Interval Clinical Notes: Pt with harding affect no psychosis not confused Time: Total time managing care of this patient today __30__ minutes. ECT Settings Device: THYMATRON DGx Electrode Placement: Rt temporal/ Lt frontal Program/Pulse Width: 0.50 Energy Percent: 100 Seizure Duration By EEG (in seconds): 56 Medications Administration General Anesthetic: Etomidate (16) Muscle Relaxant: Succinylcholine (120) Ancillary Medications Anti-emetics: Zofran - Pre ECT Airway Management Airway Management: Bag Mask Ventilation Treatment Recommendations No Changes Recommended: No change Notes: f/u 3 weeks doing well sinemet recently inc Pt Tolerated Procedure w/o Issue: Yes
== END 2023-01-25 09:10 | disposition home or self-care (01) ==
PROVIDERS: PCP Student in an Organized Health Care Education/Training Program; Visit Provider Psychiatry & Neurology Psychiatry
PROC: (CPT 90870; principal; 2023-01-25 07:00)
DX: F33.2 Major depressive disorder, recurrent severe without psychotic features (principal); G20 Parkinson's disease; E03.9 Hypothyroidism, unspecified; E53.8 Deficiency of other specified B group vitamins; K50.919 Crohn's disease, unspecified, with unspecified complications; M19.90 Unspecified osteoarthritis, unspecified site; Z79.899 Other long term (current) drug therapy; Z88.8 Allergy status to other drugs, medicaments and biological substances
CPT/HCPCS: 90870; J0330; J2405

== ENCOUNTER 2023-02-15 05:50 | Day surgery (SDC) | payer OTHER, SELFPAY ==
[2023-02-15] VITALS (7 sets, daily range): BP systolic 152–175; BP diastolic 81–89; PULSE 65–76; RESP 14–18; TEMP 36.6–36.8; O2SAT 95–97; BMI 32.2
--- NOTE | 2023-02-15 06:48 | HO.ANESPROP2 ---
[facility] Active Problems Active Problems: All Active Problems (Updated 01/01/23 @ 15:56 by Tee Urbina MD) Major depressive disorder, recurrent episode, in partial remission with catatonia (Acute) Parkinson's disease (tremor, stiffness, slow motion, unstable posture) (Acute) Major depressive disorder, recurrent episode with mood-congruent psychotic features (Acute) Hypothyroidism (Acute) Vitamin B12 deficiency (Acute) Parkinsonian features (Acute) Crohn's disease (Acute) Past Medical History Medical History (Updated 01/01/23 @ 15:56 by Tee Urbina MD) Crohn's disease Hypothyroidism Major depressive disorder, recurrent episode with mood-congruent psychotic features Osteoarthritis Parkinson's disease (tremor, stiffness, slow motion, unstable posture) Parkinsonian features Vitamin B12 deficiency Family History Family History Father Stomach cancer Mother Dementia Family history of problems with anesthesia: No Surgical History Surgical History S/P small bowel resection History of Problems with Anesthesia: No Social History Social History Household Members: Spouse Housing: House Do you presently have visiting nurse or other home services: No Patient Tobacco Use Status: Never used Tobacco Tobacco use type: Cigarette Advance Directives: No Advance Directives Information Provided: Yes service: Yes Sexual orientation: Straight/Heterosexual Meds Allergies Allergy/AdvReac Type Severity Reaction Status Date / Time codeine Allergy Intermediate Rash Verified 12/02/22 06:13 Exam Exam Date and Time: February 15, 2023 0648 Height,Weight and Vital Signs: Height 5 ft 8 in Weight 96.162 kg Last Vital Signs Temp 97.8 F 02/15/23 06:23 Pulse 71 02/15/23 06:23 Resp 16 02/15/23 06:23 BP 155/81 H 02/15/23 06:23 Pulse Ox 97 02/15/23 06:23 O2 Del Method Room Air 02/15/23 06:23 Airway Mallampati Class: II TM Dist: >3cm Neck ROM: Full Heart: rrr Lungs: cta Assessment and Plan Assessment Anesthesia Assessment: Anesthesia Plan Discussed and Chart Reviewed Final Anesthetic Review Family History of Problems with Anesthesia: No History of Problems with Anesthesia: No NPO: Yes ASA Class: III Final Preanesthetic Review: No Changes in Pt Med Stat, Meds/Allgs Chart Reviewed and Consent Obtained/Reviewed Patient Risk: Intermediate Procedure Risk: Intermediate Anesthetic Plan Anesthetic Plan: GA Disposition: Standard PACU
--- NOTE | 2023-02-15 07:10 | MHC.SHP ---
Pre-Procedural Eval Section A Date of Service: 02/15/23 The patient is an INPATIENT: No Changes since office visit: Yes Patient answered all questions; No Cold of Flu in the past 2 weeks, No New Medical Problems and No Changes in Medication Section B Chief Complaint: Major depressive disorder, recurrent, severe with Details of Present Illness: recurrent depression balance issues improved mood Relevant Social History: None Present Medications: see Short Stay Collaborative assessment Medical History: Significant History (parkinsons crohns disease) Allergies: Allergies Allergy/AdvReac Type Severity Reaction Status Date / Time codeine Allergy Intermediate Rash Verified 12/02/22 06:13 Review of Systems Sugical H&P ROS: Negative: Cardiovascular, Respiratory and Psychiatric (mood stable) and Yes, Specify: Constitution, Neurological (tremor) and Musculoskeletal (knee pain) Exam Surgical H&P Exam: Normal: Heart and Normal: Lungs and Significant Findings: Neurological (mild tremor) Exam Comment: full affect no confusion Plan Diagnosis/Plan: Unchanged I have reviewed the history and physical and performed a pertinent physical examination on my patient. No changes have occurred unless specified. Time Spent With Patient Time: Total time managing care of this patient today ____ minutes.
--- NOTE | 2023-02-15 07:10 | HO.ECTPROC ---
ECT Procedure Note Diagnosis/Treatment Date of Service: 02/15/23 Diagnosis: Major Depressive Disorder (With psychotic features) Previous ECT Date: 01/25/23 Current Treatment Number: Other Treatment: Maintenance Interval Clinical Notes: Pt with harding affect no psychosis not confused seems to be much more stable. Parkinsonian medications have been increased Patient states he has generally been doing well verbal full range of affect no cognitive complaints Time: Total time managing care of this patient today ____ minutes. ECT Settings Device: THYMATRON DGx Electrode Placement: Rt temporal/ Lt frontal Program/Pulse Width: 0.50 Energy Percent: 100 Seizure Duration By EEG (in seconds): 69 Medications Administration General Anesthetic: Etomidate (16) Muscle Relaxant: Succinylcholine (120) Ancillary Medications Anti-emetics: Zofran - Pre ECT Airway Management Airway Management: Bag Mask Ventilation Treatment Recommendations No Changes Recommended: No change Notes: f/u 3 weeks doing well sinemet recently inc could decrease stimulation% Pt Tolerated Procedure w/o Issue: Yes
== END 2023-02-15 08:31 | disposition home or self-care (01) ==
PROVIDERS: PCP Student in an Organized Health Care Education/Training Program; Visit Provider Psychiatry & Neurology Psychiatry
PROC: (CPT 90870; principal; 2023-02-15 07:00)
DX: F33.3 Major depressive disorder, recurrent, severe with psychotic symptoms (principal); Z88.5 Allergy status to narcotic agent
CPT/HCPCS: 90870; J0330; J2405

== ENCOUNTER → 2023-02-15 05:50 | Outpatient (BNV) | payer OTHER, SELFPAY | PROVIDERS: PCP Student in an Organized Health Care Education/Training Program; Visit Provider Psychiatry & Neurology Psychiatry | DX: F33.3 Major depressive disorder, recurrent, severe with psychotic symptoms (principal) | CPT/HCPCS: 90870 ==

== ENCOUNTER 2023-03-08 05:56 | Day surgery (SDC) | payer OTHER, SELFPAY ==
[2023-03-08] VITALS (8 sets, daily range): BP systolic 121–155; BP diastolic 60–86; PULSE 65–100; RESP 16–23; TEMP 36.2–36.9; O2SAT 94–98; BMI 31.9
--- NOTE | 2023-03-08 07:07 | MHC.SHP ---
Pre-Procedural Eval Section A Date of Service: 03/08/23 The patient is an INPATIENT: No Changes since office visit: Yes Patient answered all questions; No Cold of Flu in the past 2 weeks, No New Medical Problems and No Changes in Medication Section B Chief Complaint: Major depressive disorder, recurrent, severe Details of Present Illness: recurrent depression balance issues improved mood Relevant Social History: None Present Medications: see Short Stay Collaborative assessment Medical History: Significant History (parkinsons crohns disease) Allergies: Allergies Allergy/AdvReac Type Severity Reaction Status Date / Time codeine Allergy Intermediate Rash Verified 12/02/22 06:13 Review of Systems Sugical H&P ROS: Negative: Cardiovascular, Respiratory and Psychiatric (mood inc depression) and Yes, Specify: Constitution, Neurological (tremor in parkinsons sx) and Musculoskeletal (knee pain) Exam Surgical H&P Exam: Normal: Heart and Normal: Lungs and Significant Findings: Neurological (mild tremor) Exam Comment: full affect no confusion Plan Diagnosis/Plan: Unchanged I have reviewed the history and physical and performed a pertinent physical examination on my patient. No changes have occurred unless specified. Time Spent With Patient Time: Total time managing care of this patient today ____ minutes.
--- NOTE | 2023-03-08 07:07 | HO.ECTPROC ---
ECT Procedure Note Diagnosis/Treatment Date of Service: 03/08/23 Diagnosis: Major Depressive Disorder (With psychotic features) Previous ECT Date: 01/25/23 Current Treatment Number: Other Treatment: Maintenance Interval Clinical Notes: Patient has relapse with some depressive symptoms again focused on Parkinson symptoms more lethargic Time: Total time managing care of this patient today ____ minutes. ECT Settings Device: THYMATRON DGx Electrode Placement: Rt temporal/ Lt frontal Program/Pulse Width: 0.50 Energy Percent: 90 Seizure Duration By EEG (in seconds): 41 Medications Administration General Anesthetic: Etomidate (12) Muscle Relaxant: Succinylcholine (120) Ancillary Medications Anti-emetics: Zofran - Pre ECT Airway Management Airway Management: Bag Mask Ventilation Treatment Recommendations No Changes Recommended: No change Notes: ECT scheduled for 5 days if patient continues to be significantly depressed Pt Tolerated Procedure w/o Issue: Yes
--- NOTE | 2023-03-08 07:16 | P.CONAN_ITS ---
HPI - Anesthesia Eval Consult details Narrative: Major Depressive Disorder [facility] Active Problems Active Problems: All Active Problems (Updated 01/01/23 @ 15:56 by Tee Urbina MD) Major depressive disorder, recurrent episode, in partial remission with catatonia (Acute) Parkinson's disease (tremor, stiffness, slow motion, unstable posture) (Acute) Major depressive disorder, recurrent episode with mood-congruent psychotic features (Acute) Hypothyroidism (Acute) Vitamin B12 deficiency (Acute) Parkinsonian features (Acute) Crohn's disease (Acute) Past Medical History Medical History Crohn's disease Hypothyroidism Major depressive disorder, recurrent episode with mood-congruent psychotic features Osteoarthritis Parkinson's disease (tremor, stiffness, slow motion, unstable posture) Parkinsonian features Vitamin B12 deficiency Family History Family History Father Stomach cancer Mother Dementia Family history of problems with anesthesia: No Surgical History Surgical History S/P small bowel resection History of Problems with Anesthesia: No Social History Social History Household Members: Spouse Housing: House Do you presently have visiting nurse or other home services: No Patient Tobacco Use Status: Never used Tobacco Tobacco use type: Cigarette Advance Directives: No Advance Directives Information Provided: Yes service: Yes Sexual orientation: Straight/Heterosexual Meds Allergies Allergy/AdvReac Type Severity Reaction Status Date / Time codeine Allergy Intermediate Rash Verified 12/02/22 06:13 Exam Exam Date and Time: March 08, 2023 0716 Height,Weight and Vital Signs: Height 5 ft 8 in Weight 95.254 kg Last Vital Signs Temp 97.2 F 03/08/23 06:35 Pulse 65 03/08/23 06:35 Resp 17 03/08/23 06:35 BP 142/76 H 03/08/23 06:35 Pulse Ox 95 03/08/23 06:35 O2 Del Method Room Air 03/08/23 06:35 Airway Mallampati Class: III TM Dist: >3cm Neck ROM: Full Loose/Missing/Broken Teeth: Yes Heart: [id number] Lungs: CTA b/l Assessment and Plan Assessment Anesthesia Assessment: Anesthesia Plan Discussed and Chart Reviewed Final Anesthetic Review Family History of Problems with Anesthesia: No History of Problems with Anesthesia: No NPO: Yes ASA Class: III Final Preanesthetic Review: No Changes in Pt Med Stat, Meds/Allgs Chart Reviewed, Consent Obtained/Reviewed and Anes Risks/Benef Reviewed Patient Risk: Intermediate Procedure Risk: Intermediate Assessment/Block/Sedation in SS: Assess/Block/Sedation-SS Anesthetic Plan Anesthetic Plan: GA and Agree w/ Assess. and Plan Disposition: Standard PACU
[2023-03-08] MEDS: Acetaminophen 325 MG TABLET 650 MG PO (08:08)
== END 2023-03-08 08:49 | disposition home or self-care (01) ==
PROVIDERS: PCP Student in an Organized Health Care Education/Training Program; Visit Provider Psychiatry & Neurology Psychiatry
PROC: (CPT 90870; principal; 2023-03-08 07:00)
DX: F33.3 Major depressive disorder, recurrent, severe with psychotic symptoms (principal); G20 Parkinson's disease; D64.9 Anemia, unspecified; E66.9 Obesity, unspecified; Z79.899 Other long term (current) drug therapy; Z88.5 Allergy status to narcotic agent
CPT/HCPCS: 90870; J0330; J2405

== ENCOUNTER → 2023-03-08 05:56 | Outpatient (BNV) | payer OTHER, SELFPAY | PROVIDERS: PCP Student in an Organized Health Care Education/Training Program; Visit Provider Psychiatry & Neurology Psychiatry | DX: F33.3 Major depressive disorder, recurrent, severe with psychotic symptoms (principal) | CPT/HCPCS: 90870 ==

== ENCOUNTER 2023-03-13 05:58 | Day surgery (SDC) | payer OTHER, SELFPAY ==
[2023-03-13 06:30] VITALS: BP 153/83; PULSE 76; RESP 16; TEMP 36.3; O2SAT 96; BMI 33.4
--- NOTE | 2023-03-13 07:02 | MHC.SHP ---
Pre-Procedural Eval Section A Date of Service: 03/13/23 The patient is an INPATIENT: No Changes since office visit: No Cold of Flu in the past 2 weeks, No New Medical Problems, No Changes in Medication and No Patient answered all questions The History & Physical has been completed within 30 days and I have reviewed it.: Yes Section B Chief Complaint: depression Allergies: Allergies Allergy/AdvReac Type Severity Reaction Status Date / Time codeine Allergy Intermediate Rash Verified 12/02/22 06:13 Plan I have reviewed the history and physical and performed a pertinent physical examination on my patient. No changes have occurred unless specified. Time Spent With Patient Time: Total time managing care of this patient today ____ minutes.
--- NOTE | 2023-03-13 07:03 | HO.ECTPROC ---
ECT Procedure Note Diagnosis/Treatment Date of Service: 03/13/23 Diagnosis: Major Depressive Disorder Previous ECT Date: 03/08/23 Treatment: Maintenance Interval Clinical Notes: The patient reported dysphoria, no change of his mental status, no side effects with the previous ECT. Time: Total time managing care of this patient today ____ minutes. ECT Settings Device: THYMATRON DGx Electrode Placement: Rt temporal/ Lt frontal Program/Pulse Width: 0.50 Energy Percent: 100 Seizure Duration By EEG (in seconds): 45 By Motor Observation (in seconds): 25 Medications Administration General Anesthetic: Etomidate (12) Muscle Relaxant: Succinylcholine (120) Ancillary Medications Analgesics: Torodol - Pre ECT Anti-emetics: Zofran - Pre ECT Airway Management Airway Management: Bag Mask Ventilation Treatment Recommendations No Changes Recommended: No change Pt Tolerated Procedure w/o Issue: Yes
--- NOTE | 2023-03-13 07:05 | HO.ANESPROP2 ---
HPI - Anesthesia Eval Consult details Narrative: 73 yo male patient for ECT PMFSH Active Problems Active Problems: All Active Problems (Updated 03/13/23 @ 15:56 by Michelle Harp MD) Major depressive disorder, recurrent episode, in partial remission with catatonia (Acute) Parkinson's disease (tremor, stiffness, slow motion, unstable posture) (Acute) Major depressive disorder, recurrent episode with mood-congruent psychotic features (Acute) Hypothyroidism (Acute) Vitamin B12 deficiency (Acute) Parkinsonian features (Acute) Crohn's disease (Acute) Past Medical History Medical History Crohn's disease Hypothyroidism Major depressive disorder, recurrent episode with mood-congruent psychotic features Osteoarthritis Parkinson's disease (tremor, stiffness, slow motion, unstable posture) Parkinsonian features Vitamin B12 deficiency Family History Family History Father Stomach cancer Mother Dementia Family history of problems with anesthesia: No Surgical History Surgical History S/P small bowel resection History of Problems with Anesthesia: No Social History Social History Household Members: Spouse Housing: House Do you presently have visiting nurse or other home services: No Patient Tobacco Use Status: Never used Tobacco Tobacco use type: Cigarette Advance Directives: No Advance Directives Information Provided: Yes service: Yes Sexual orientation: Straight/Heterosexual Meds Allergies Allergy/AdvReac Type Severity Reaction Status Date / Time codeine Allergy Intermediate Rash Verified 12/02/22 06:13 Exam Exam Date and Time: March 13, 2023 0705 Height,Weight and Vital Signs: Height 5 ft 8 in Weight 99.79 kg Last Vital Signs Temp 97.3 F 03/13/23 06:30 Pulse 76 03/13/23 06:30 Resp 16 03/13/23 06:30 BP 153/83 H 03/13/23 06:30 Pulse Ox 96 03/13/23 06:30 O2 Del Method Room Air 03/13/23 06:30 Airway Mallampati Class: III TM Dist: >3cm Neck ROM: Full Loose/Missing/Broken Teeth: No Heart: RRR Lungs: CTAB Assessment and Plan Assessment Anesthesia Assessment: Anesthesia Plan Discussed and Chart Reviewed Final Anesthetic Review Family History of Problems with Anesthesia: No History of Problems with Anesthesia: No NPO: Yes ASA Class: III Final Preanesthetic Review: No Changes in Pt Med Stat, Meds/Allgs Chart Reviewed, Consent Obtained/Reviewed and Anes Risks/Benef Reviewed Patient Risk: Intermediate Procedure Risk: Intermediate Anesthetic Plan Anesthetic Plan: GA Disposition: Standard PACU
[2023-03-13 07:20] VITALS: BP 202/87; PULSE 81; RESP 12; TEMP 37.2; O2SAT 99
[2023-03-13 07:25] VITALS: BP 159/91; PULSE 74; RESP 23; O2SAT 95
[2023-03-13 07:30] VITALS: BP 149/88; PULSE 77; RESP 18; O2SAT 96
[2023-03-13 07:35] VITALS: BP 154/85; PULSE 77; RESP 21; O2SAT 96
[2023-03-13 07:50] VITALS: BP 151/82; PULSE 71; RESP 15; TEMP 36.6; O2SAT 96
[2023-03-13] MEDS: Acetaminophen 325 MG TABLET 650 MG PO (08:02)
== END 2023-03-13 08:21 | disposition home or self-care (01) ==
PROVIDERS: PCP Student in an Organized Health Care Education/Training Program; Visit Provider Psychiatry & Neurology Psychiatry
PROC: (CPT 90870; principal; 2023-03-13 07:30)
DX: F33.41 Major depressive disorder, recurrent, in partial remission (principal); F34.1 Dysthymic disorder; G20 Parkinson's disease; E66.9 Obesity, unspecified; E03.9 Hypothyroidism, unspecified; E53.8 Deficiency of other specified B group vitamins; Z90.49 Acquired absence of other specified parts of digestive tract; Z79.899 Other long term (current) drug therapy; Z88.5 Allergy status to narcotic agent
CPT/HCPCS: 90870; J0330; J2405

== ENCOUNTER → 2023-03-13 05:58 | Outpatient (BNV) | payer OTHER, SELFPAY | PROVIDERS: PCP Student in an Organized Health Care Education/Training Program; Visit Provider Psychiatry & Neurology Psychiatry | DX: F33.3 Major depressive disorder, recurrent, severe with psychotic symptoms (principal) | CPT/HCPCS: 90870 ==

== ENCOUNTER 2023-04-07 06:04 | Day surgery (SDC) | payer OTHER, SELFPAY ==
[2023-04-07] VITALS (7 sets, daily range): BP systolic 124–189; BP diastolic 65–80; PULSE 69–87; RESP 13–19; TEMP 36.1–36.3; O2SAT 95–98; BMI 30.4
--- NOTE | 2023-04-07 06:53 | HO.ANESPROP2 ---
[facility] Active Problems Active Problems: All Active Problems (Updated 01/01/23 @ 15:56 by Tee Urbina MD) Major depressive disorder, recurrent episode, in partial remission with catatonia (Acute) Parkinson's disease (tremor, stiffness, slow motion, unstable posture) (Acute) Major depressive disorder, recurrent episode with mood-congruent psychotic features (Acute) Hypothyroidism (Acute) Vitamin B12 deficiency (Acute) Parkinsonian features (Acute) Crohn's disease (Acute) Past Medical History Medical History Crohn's disease Hypothyroidism Major depressive disorder, recurrent episode with mood-congruent psychotic features Osteoarthritis Parkinson's disease (tremor, stiffness, slow motion, unstable posture) Parkinsonian features Vitamin B12 deficiency Family History Family History Father Stomach cancer Mother Dementia Family history of problems with anesthesia: No Surgical History Surgical History S/P small bowel resection History of Problems with Anesthesia: No Social History Social History Household Members: Spouse Housing: House Do you presently have visiting nurse or other home services: No Patient Tobacco Use Status: Never used Tobacco Tobacco use type: Cigarette Advance Directives: No Advance Directives Information Provided: Yes service: Yes Sexual orientation: Straight/Heterosexual Meds Allergies Allergy/AdvReac Type Severity Reaction Status Date / Time codeine Allergy Intermediate Rash Verified 12/02/22 06:13 Exam Exam Date and Time: April 07, 2023 0653 Height,Weight and Vital Signs: Height 5 ft 8 in Weight 90.718 kg Last Vital Signs Temp 97.3 F 04/07/23 06:30 Pulse 76 04/07/23 06:30 Resp 17 04/07/23 06:30 BP 124/75 04/07/23 06:30 Pulse Ox 96 04/07/23 06:30 O2 Del Method Room Air 04/07/23 06:30 Airway Mallampati Class: II TM Dist: >3cm Neck ROM: Full Heart: rrr Lungs: cta Assessment and Plan Assessment Anesthesia Assessment: Anesthesia Plan Discussed and Chart Reviewed Final Anesthetic Review Family History of Problems with Anesthesia: No History of Problems with Anesthesia: No NPO: Yes ASA Class: III Final Preanesthetic Review: No Changes in Pt Med Stat, Meds/Allgs Chart Reviewed and Consent Obtained/Reviewed Patient Risk: Intermediate Procedure Risk: Intermediate Anesthetic Plan Anesthetic Plan: GA Disposition: Standard PACU
--- NOTE | 2023-04-07 06:56 | MHC.SHP ---
Pre-Procedural Eval Section A Date of Service: 04/07/23 The patient is an INPATIENT: No Changes since office visit: Yes Patient answered all questions; No Cold of Flu in the past 2 weeks, No New Medical Problems and No Changes in Medication The History & Physical has been completed within 30 days and I have reviewed it.: Yes Section B Chief Complaint: depression Details of Present Illness: recurrent depression balance issues improved mood Relevant Social History: None Present Medications: see Short Stay Collaborative assessment Medical History: Significant History (parkinsons crohns disease) Allergies: Allergies Allergy/AdvReac Type Severity Reaction Status Date / Time codeine Allergy Intermediate Rash Verified 12/02/22 06:13 Review of Systems Sugical H&P ROS: Negative: Cardiovascular and Respiratory and Yes, Specify: Constitution, Neurological (tremor in parkinsons sx), Psychiatric (mood flat) and Musculoskeletal (knee pain) Exam Surgical H&P Exam: Normal: Heart and Normal: Lungs and Significant Findings: Neurological (mild tremor/slowed mentation) Exam Comment: full affect no confusion Plan Diagnosis/Plan: Unchanged I have reviewed the history and physical and performed a pertinent physical examination on my patient. No changes have occurred unless specified. Time Spent With Patient Time: Total time managing care of this patient today ____ minutes.
--- NOTE | 2023-04-07 06:56 | HO.ECTPROC ---
ECT Procedure Note Diagnosis/Treatment Date of Service: 04/07/23 Diagnosis: Major Depressive Disorder Previous ECT Date: 03/13/23 Treatment: Maintenance Interval Clinical Notes: The patient reported feeling flat, no si no psychosis no side effects with the previous ECT. Time: Total time managing care of this patient today ____ minutes. ECT Settings Device: THYMATRON DGx Electrode Placement: Rt temporal/ Lt frontal Program/Pulse Width: 0.50 Energy Percent: 100 Seizure Duration By EEG (in seconds): 51 Medications Administration General Anesthetic: Etomidate (12) Muscle Relaxant: Succinylcholine (120) Ancillary Medications Anti-emetics: Zofran - Pre ECT Airway Management Airway Management: Bag Mask Ventilation Treatment Recommendations No Changes Recommended: No change Pt Tolerated Procedure w/o Issue: Yes
== END 2023-04-07 08:55 | disposition home or self-care (01) ==
PROVIDERS: PCP Student in an Organized Health Care Education/Training Program; Visit Provider Psychiatry & Neurology Psychiatry
PROC: (CPT 90870; principal; 2023-04-07 07:30)
DX: F33.2 Major depressive disorder, recurrent severe without psychotic features (principal); G20 Parkinson's disease; R73.03 Prediabetes; E66.9 Obesity, unspecified; E03.9 Hypothyroidism, unspecified; E53.8 Deficiency of other specified B group vitamins; Z90.49 Acquired absence of other specified parts of digestive tract; Z79.899 Other long term (current) drug therapy
CPT/HCPCS: 90870; J0330; J2405

== ENCOUNTER → 2023-04-07 06:04 | Outpatient (BNV) | payer OTHER, SELFPAY | PROVIDERS: PCP Student in an Organized Health Care Education/Training Program; Visit Provider Psychiatry & Neurology Psychiatry | DX: F33.3 Major depressive disorder, recurrent, severe with psychotic symptoms (principal) | CPT/HCPCS: 90870 ==

== ENCOUNTER 2023-04-26 05:57 | Day surgery (SDC) | payer OTHER, SELFPAY ==
[2023-04-26] VITALS (9 sets, daily range): BP systolic 134–164; BP diastolic 75–84; PULSE 67–74; RESP 15–20; TEMP 36.1–36.4; O2SAT 92–98; BMI 33.2
--- NOTE | 2023-04-26 06:51 | HO.ANESPROP2 ---
HPI - Anesthesia Eval Consult details Narrative: 73 yo male patient for ECT PMFSH Active Problems Active Problems: All Active Problems (Updated 03/13/23 @ 07:05 by Michelle Harp MD) Major depressive disorder, recurrent episode, in partial remission with catatonia (Acute) Parkinson's disease (tremor, stiffness, slow motion, unstable posture) (Acute) Major depressive disorder, recurrent episode with mood-congruent psychotic features (Acute) Hypothyroidism (Acute) Vitamin B12 deficiency (Acute) Parkinsonian features (Acute) Crohn's disease (Acute) Past Medical History Medical History Crohn's disease Hypothyroidism Major depressive disorder, recurrent episode with mood-congruent psychotic features Osteoarthritis Parkinson's disease (tremor, stiffness, slow motion, unstable posture) Parkinsonian features Vitamin B12 deficiency Family History Family History Father Stomach cancer Mother Dementia Family history of problems with anesthesia: No Surgical History Surgical History S/P small bowel resection History of Problems with Anesthesia: No Social History Social History Household Members: Spouse Housing: House Do you presently have visiting nurse or other home services: No Patient Tobacco Use Status: Never used Tobacco Tobacco use type: Cigarette Advance Directives: No Advance Directives Information Provided: Yes service: Yes Sexual orientation: Straight/Heterosexual Meds Allergies Allergy/AdvReac Type Severity Reaction Status Date / Time codeine Allergy Intermediate Rash Verified 12/02/22 06:13 Exam Exam Date and Time: April 26, 2023 0651 Height,Weight and Vital Signs: Height 5 ft 6 in Weight 93.44 kg Last Vital Signs Temp 97.2 F 04/26/23 06:26 Pulse 67 04/26/23 06:26 Resp 16 04/26/23 06:26 BP 134/76 04/26/23 06:26 Pulse Ox 98 04/26/23 06:26 O2 Del Method Room Air 04/26/23 06:26 Airway Mallampati Class: III TM Dist: >3cm Neck ROM: Full Loose/Missing/Broken Teeth: No (Dental posts but denies broken, loose, missing teeth) Heart: RRR Lungs: CTAB Assessment and Plan Assessment Anesthesia Assessment: Anesthesia Plan Discussed and Chart Reviewed Final Anesthetic Review Family History of Problems with Anesthesia: No History of Problems with Anesthesia: No NPO: Yes ASA Class: III Final Preanesthetic Review: No Changes in Pt Med Stat, Meds/Allgs Chart Reviewed, Consent Obtained/Reviewed and Anes Risks/Benef Reviewed Patient Risk: Intermediate Procedure Risk: Intermediate Assessment/Block/Sedation in SS: Assess/Block/Sedation-SS Anesthetic Plan Anesthetic Plan: GA Disposition: Standard PACU
--- NOTE | 2023-04-26 07:04 | MHC.SHP ---
Pre-Procedural Eval Section A Date of Service: 04/26/23 The patient is an INPATIENT: No Changes since office visit: Yes New Medical Problems, Yes Changes in Medication and Yes Patient answered all questions; No Cold of Flu in the past 2 weeks The History & Physical has been completed within 30 days and I have reviewed it.: Yes Section B Chief Complaint: depression Details of Present Illness: recurrent depression Relevant Social History: None Present Medications: see Short Stay Collaborative assessment Medical History: Significant History (parkinsons crohns disease) Allergies: Allergies Allergy/AdvReac Type Severity Reaction Status Date / Time codeine Allergy Intermediate Rash Verified 12/02/22 06:13 Review of Systems Sugical H&P ROS: Negative: Cardiovascular and Respiratory and Yes, Specify: Constitution, Neurological (tremor in parkinsons sx), Psychiatric (mood flatdepressed hopeless) and Musculoskeletal (knee pain) Exam Surgical H&P Exam: Normal: Heart and Normal: Lungs and Significant Findings: Extremities (hand arthritis) and Significant Findings: Neurological (mild tremor/slowed mentation) Exam Comment: full affect no confusion Plan Diagnosis/Plan: Unchanged I have reviewed the history and physical and performed a pertinent physical examination on my patient. No changes have occurred unless specified. Time Spent With Patient Time: Total time managing care of this patient today ____ minutes.
--- NOTE | 2023-04-26 07:07 | HO.ECTPROC ---
ECT Procedure Note Diagnosis/Treatment Date of Service: 04/26/23 Diagnosis: Major Depressive Disorder Previous ECT Date: 04/07/23 Treatment: Maintenance Interval Clinical Notes: The patient reported feeling flat depressed passive si hopeless helpless states safe outpt Time: Total time managing care of this patient today _30___ minutes. ECT Settings Device: THYMATRON DGx Electrode Placement: Rt temporal/ Lt frontal Program/Pulse Width: 0.50 Energy Percent: 100 Seizure Duration By EEG (in seconds): 46 Medications Administration General Anesthetic: Etomidate (12) Muscle Relaxant: Succinylcholine (120) Ancillary Medications Anti-emetics: Zofran - Pre ECT Airway Management Airway Management: Bag Mask Ventilation Treatment Recommendations No Changes Recommended: No change Notes: call to outpt providers may need mini series change in psych meds Pt Tolerated Procedure w/o Issue: Yes
--- NOTE | 2023-04-26 08:09 | PM.EVENT ---
Event Note Date of Service: 04/26/23 Event Note: spoke with pts discussed recent depressive sx catastrophic thinking low energy helpless hopeless scheduled ect for 04/28/23 Time Spent With Patient Time: Total time managing care of this patient today ____ minutes.
== END 2023-04-26 08:52 | disposition home or self-care (01) ==
PROVIDERS: PCP Student in an Organized Health Care Education/Training Program; Visit Provider Psychiatry & Neurology Psychiatry
PROC: (CPT 90870; principal; 2023-04-26 07:00)
DX: F33.3 Major depressive disorder, recurrent, severe with psychotic symptoms (principal); R45.851 Suicidal ideations; G20 Parkinson's disease; R73.03 Prediabetes; Z88.5 Allergy status to narcotic agent
CPT/HCPCS: 90870; J0330; J2405

== ENCOUNTER → 2023-04-26 05:57 | Outpatient (BNV) | payer OTHER, SELFPAY | PROVIDERS: PCP Student in an Organized Health Care Education/Training Program; Visit Provider Psychiatry & Neurology Psychiatry | DX: F33.3 Major depressive disorder, recurrent, severe with psychotic symptoms (principal) | CPT/HCPCS: 90870; 99499 ==

== ENCOUNTER 2023-04-28 05:57 | Day surgery (SDC) | payer OTHER, SELFPAY ==
[2023-04-28] VITALS (7 sets, daily range): BP systolic 125–156; BP diastolic 70–78; PULSE 61–74; RESP 12–21; TEMP 36.3–36.7; O2SAT 95–97; BMI 31.0
--- NOTE | 2023-04-28 06:40 | P.CONAN_ITS ---
[facility] Active Problems Active Problems: All Active Problems (Updated 01/01/23 @ 15:56 by Tee Urbina MD) Major depressive disorder, recurrent episode, in partial remission with catatonia (Acute) Parkinson's disease (tremor, stiffness, slow motion, unstable posture) (Acute) Major depressive disorder, recurrent episode with mood-congruent psychotic features (Acute) Hypothyroidism (Acute) Vitamin B12 deficiency (Acute) Parkinsonian features (Acute) Crohn's disease (Acute) Past Medical History Medical History Crohn's disease Hypothyroidism Major depressive disorder, recurrent episode with mood-congruent psychotic features Osteoarthritis Parkinson's disease (tremor, stiffness, slow motion, unstable posture) Parkinsonian features Vitamin B12 deficiency Family History Family History Father Stomach cancer Mother Dementia Family history of problems with anesthesia: No Surgical History Surgical History S/P small bowel resection History of Problems with Anesthesia: No Social History Social History Household Members: Spouse Housing: House Do you presently have visiting nurse or other home services: No Patient Tobacco Use Status: Never used Tobacco Tobacco use type: Cigarette Advance Directives: No Advance Directives Information Provided: Yes service: Yes Sexual orientation: Straight/Heterosexual Meds Allergies Allergy/AdvReac Type Severity Reaction Status Date / Time codeine Allergy Intermediate Rash Verified 12/02/22 06:13 Active Medications: Current Medications Lactated Ringer's (Lr) 1,000 mls @ 50 mls/hr IVCONT .Q20H [facility] Exam Exam Date and Time: April 28, 2023 0640 Height,Weight and Vital Signs: Height 5 ft 9 in Weight 95.254 kg Last Vital Signs Temp 97.3 F 04/28/23 06:23 Pulse 68 04/28/23 06:23 Resp 17 04/28/23 06:23 BP 125/70 04/28/23 06:23 Pulse Ox 97 04/28/23 06:23 O2 Del Method Nasal Cannula 04/28/23 06:23 Airway Mallampati Class: II TM Dist: >3cm Neck ROM: Full Heart: rrr Lungs: cta Assessment and Plan Assessment Anesthesia Assessment: Anesthesia Plan Discussed and Chart Reviewed Final Anesthetic Review Family History of Problems with Anesthesia: No History of Problems with Anesthesia: No NPO: Yes ASA Class: III Final Preanesthetic Review: No Changes in Pt Med Stat, Meds/Allgs Chart Reviewed and Consent Obtained/Reviewed Patient Risk: Intermediate Procedure Risk: Intermediate Anesthetic Plan Anesthetic Plan: GA Disposition: Standard PACU
--- NOTE | 2023-04-28 07:22 | P.HPSUR_ITS ---
Pre-Procedural Eval Section A Date of Service: 04/28/23 The patient is an INPATIENT: No Changes since office visit: No Cold of Flu in the past 2 weeks and No New Medical Problems The History & Physical has been completed within 30 days and I have reviewed it.: Yes Section B Chief Complaint: depression Details of Present Illness: recurrent depression Relevant Social History: None Present Medications: see Short Stay Collaborative assessment Medical History: Significant History (parkinsons crohns disease) Allergies: Allergies Allergy/AdvReac Type Severity Reaction Status Date / Time codeine Allergy Intermediate Rash Verified 12/02/22 06:13 Review of Systems Sugical H&P ROS: Negative: Cardiovascular and Respiratory and Yes, Specify: Constitution, Neurological (tremor in parkinsons sx), Psychiatric (mood fl atdepressed ) and Musculoskeletal (knee pain) Exam Surgical H&P Exam: Normal: Heart and Normal: Lungs and Significant Findings: Extremities (hand arthritis) and Significant Findings: Neurological (mild tremor/slowed mentation) Exam Comment: full affect no confusion some inc range affect Plan Diagnosis/Plan: Unchanged I have reviewed the history and physical and performed a pertinent physical examination on my patient. No changes have occurred unless specified. Time Spent With Patient Time: Total time managing care of this patient today ____ minutes.
--- NOTE | 2023-04-28 08:26 | HO.ECTPROC ---
ECT Procedure Note Diagnosis/Treatment Date of Service: 04/28/23 Diagnosis: Major Depressive Disorder Interval Clinical Notes: The patient has been increasingly depressed [facility]'s nurse practitioner we worry he also intermittently sees Dr. Swan. Case reviewed with patient's he has become increasingly withdrawn not wanting to do things not wanting to get out of bed no recent change in his psychiatric medication he is breaking through denies active suicidal thoughts some vague paranoia and suspiciousness Time: Total time managing care of this patient today ____ minutes. ECT Settings Device: THYMATRON DGx Electrode Placement: Bitemporal Program/Pulse Width: 0.50 Energy Percent: 100 Seizure Duration By EEG (in seconds): 33 Medications Administration General Anesthetic: Etomidate (14) Muscle Relaxant: Succinylcholine (120) Ancillary Medications Anti-emetics: Zofran - Pre ECT Airway Management Airway Management: Bag Mask Ventilation Treatment Recommendations No Changes Recommended: No change Notes: Discussed with patient and his nurse practitioner a brief mini series see how he responds recommended consideration of adjustment or change in medication consider brief inpatient if needed Pt Tolerated Procedure w/o Issue: Yes
== END 2023-04-28 09:12 | disposition home or self-care (01) ==
PROVIDERS: PCP Student in an Organized Health Care Education/Training Program; Visit Provider Psychiatry & Neurology Psychiatry
PROC: (CPT 90870; principal; 2023-04-28 08:00)
DX: F33.3 Major depressive disorder, recurrent, severe with psychotic symptoms (principal); G20 Parkinson's disease; K50.90 Crohn's disease, unspecified, without complications; Z90.49 Acquired absence of other specified parts of digestive tract; Z88.5 Allergy status to narcotic agent
CPT/HCPCS: 90870; J0330; J2405

== ENCOUNTER → 2023-04-28 05:57 | Outpatient (BNV) | payer OTHER, SELFPAY | PROVIDERS: PCP Student in an Organized Health Care Education/Training Program; Visit Provider Psychiatry & Neurology Psychiatry | DX: F33.3 Major depressive disorder, recurrent, severe with psychotic symptoms (principal) | CPT/HCPCS: 90870 ==

== ENCOUNTER 2023-05-01 05:51 | Day surgery (SDC) | payer OTHER, SELFPAY ==
[2023-05-01] VITALS (7 sets, daily range): BP systolic 120–164; BP diastolic 55–86; PULSE 67–76; RESP 13–20; TEMP 36.3–36.7; O2SAT 95–98; BMI 31.9
--- NOTE | 2023-05-01 06:48 | HO.ANESPROP2 ---
[facility] Active Problems Active Problems: All Active Problems (Updated 01/01/23 @ 15:56 by Tee Urbina MD) Major depressive disorder, recurrent episode, in partial remission with catatonia (Acute) Parkinson's disease (tremor, stiffness, slow motion, unstable posture) (Acute) Major depressive disorder, recurrent episode with mood-congruent psychotic features (Acute) Hypothyroidism (Acute) Vitamin B12 deficiency (Acute) Parkinsonian features (Acute) Crohn's disease (Acute) Past Medical History Medical History Crohn's disease Hypothyroidism Major depressive disorder, recurrent episode with mood-congruent psychotic features Osteoarthritis Parkinson's disease (tremor, stiffness, slow motion, unstable posture) Parkinsonian features Vitamin B12 deficiency Family History Family History Father Stomach cancer Mother Dementia Family history of problems with anesthesia: No Surgical History Surgical History S/P small bowel resection History of Problems with Anesthesia: No Social History Social History Household Members: Spouse Housing: House Do you presently have visiting nurse or other home services: No Patient Tobacco Use Status: Never used Tobacco Tobacco use type: Cigarette Use of substances other than those prescribed or required for medical reasons: No Advance Directives: No Advance Directives Information Provided: Yes service: Yes Sexual orientation: Straight/Heterosexual Meds Allergies Allergy/AdvReac Type Severity Reaction Status Date / Time codeine Allergy Intermediate Rash Verified 12/02/22 06:13 Active Medications: Current Medications Lactated Ringer's (Lr) 1,000 mls @ 50 mls/hr IVCONT .Q20H [facility] Home Medications Medication Instructions Recorded Confirmed Last Taken Type carbidopa 25 mg-levodopa 100 mg 1 tab PO TID 05/01/23 05/01/23 Unknown History tablet carbidopa 25 mg-levodopa 100 mg tab PO BID 05/01/23 Unknown History tablet carbidopa 25 mg-levodopa 100 mg tab PO BID 05/01/23 Unknown History tablet carbidopa ER 50 mg-levodopa 200 mg 50 - 200 PO TID 05/01/23 Unknown History tablet,extended release Exam Exam Date and Time: May 01, 2023 0648 Height,Weight and Vital Signs: Height 5 ft 8 in Weight 95.254 kg Last Vital Signs Temp 97.7 F 05/01/23 06:30 Pulse 72 05/01/23 06:30 Resp 20 05/01/23 06:30 BP 138/81 05/01/23 06:30 Pulse Ox 98 05/01/23 06:30 O2 Del Method Room Air 05/01/23 06:30 Airway Mallampati Class: II TM Dist: >3cm Neck ROM: Full Heart: rrr Lungs: cta Assessment and Plan Assessment Anesthesia Assessment: Anesthesia Plan Discussed and Chart Reviewed Final Anesthetic Review Family History of Problems with Anesthesia: No History of Problems with Anesthesia: No NPO: Yes ASA Class: III Final Preanesthetic Review: No Changes in Pt Med Stat, Meds/Allgs Chart Reviewed and Consent Obtained/Reviewed Patient Risk: Intermediate Procedure Risk: Intermediate Anesthetic Plan Anesthetic Plan: GA Disposition: Standard PACU
--- NOTE | 2023-05-01 07:06 | MHC.SHP ---
Pre-Procedural Eval Section A Date of Service: 05/01/23 The patient is an INPATIENT: No Changes since office visit: No Cold of Flu in the past 2 weeks, No New Medical Problems, No Changes in Medication and No Patient answered all questions The History & Physical has been completed within 30 days and I have reviewed it.: Yes Section B Chief Complaint: depression Allergies: Allergies Allergy/AdvReac Type Severity Reaction Status Date / Time codeine Allergy Intermediate Rash Verified 12/02/22 06:13 Plan I have reviewed the history and physical and performed a pertinent physical examination on my patient. No changes have occurred unless specified. Time Spent With Patient Time: Total time managing care of this patient today ____ minutes.
--- NOTE | 2023-05-01 07:19 | HO.ECTPROC ---
ECT Procedure Note Diagnosis/Treatment Date of Service: 05/01/23 Diagnosis: Major Depressive Disorder Previous ECT Date: 04/28/23 Treatment: Maintenance Interval Clinical Notes: The patient had worsening depressive symptoms and he is having a new short course of ECT. Recently, his Sinemet was increased, no psychotic symptoms with the new medication. No side effects with the previous ECT. Procedure done today without any complications, recovered without any agitation. Time: Total time managing care of this patient today __30__ minutes. ECT Settings Device: THYMATRON DGx Electrode Placement: Rt temporal/ Lt frontal Program/Pulse Width: 0.50 Energy Percent: 100 Seizure Duration By EEG (in seconds): 33 By Motor Observation (in seconds): 20 Medications Administration General Anesthetic: Etomidate (14) Muscle Relaxant: Succinylcholine (120) Ancillary Medications Analgesics: Torodol - Pre ECT Anti-emetics: Zofran - Pre ECT Airway Management Airway Management: Bag Mask Ventilation Treatment Recommendations No Changes Recommended: No change Pt Tolerated Procedure w/o Issue: Yes
== END 2023-05-01 08:36 | disposition home or self-care (01) ==
PROVIDERS: PCP Student in an Organized Health Care Education/Training Program; Visit Provider Psychiatry & Neurology Psychiatry
PROC: (CPT 90870; principal; 2023-05-01 07:30)
DX: F33.41 Major depressive disorder, recurrent, in partial remission (principal); F20.2 Catatonic schizophrenia; G20.A1 Parkinson's disease without dyskinesia, without mention of fluctuations; K50.90 Crohn's disease, unspecified, without complications; Z88.5 Allergy status to narcotic agent; Z79.899 Other long term (current) drug therapy
CPT/HCPCS: 90870; J0330; J2405

== ENCOUNTER → 2023-05-01 05:51 | Outpatient (BNV) | payer OTHER, SELFPAY | PROVIDERS: PCP Student in an Organized Health Care Education/Training Program; Visit Provider Psychiatry & Neurology Psychiatry | DX: F33.3 Major depressive disorder, recurrent, severe with psychotic symptoms (principal) | CPT/HCPCS: 90870 ==

== ENCOUNTER 2023-05-10 05:57 | Day surgery (SDC) | payer OTHER, SELFPAY ==
[2023-05-10] VITALS (7 sets, daily range): BP systolic 143–180; BP diastolic 78–87; PULSE 73–82; RESP 16–23; TEMP 36.2–37.3; O2SAT 94–96; BMI 33.2
--- NOTE | 2023-05-10 06:48 | HO.ANESPROP2 ---
[facility] Active Problems Active Problems: All Active Problems (Updated 01/01/23 @ 15:56 by Tee Urbina MD) Major depressive disorder, recurrent episode, in partial remission with catatonia (Acute) Parkinson's disease (tremor, stiffness, slow motion, unstable posture) (Acute) Major depressive disorder, recurrent episode with mood-congruent psychotic features (Acute) Hypothyroidism (Acute) Vitamin B12 deficiency (Acute) Parkinsonian features (Acute) Crohn's disease (Acute) Past Medical History Medical History Crohn's disease Hypothyroidism Major depressive disorder, recurrent episode with mood-congruent psychotic features Osteoarthritis Parkinson's disease (tremor, stiffness, slow motion, unstable posture) Parkinsonian features Vitamin B12 deficiency Family History Family History Father Stomach cancer Mother Dementia Family history of problems with anesthesia: No Surgical History Surgical History S/P small bowel resection History of Problems with Anesthesia: No Social History Social History Household Members: Spouse Housing: House Do you presently have visiting nurse or other home services: No Patient Tobacco Use Status: Never used Tobacco Tobacco use type: Cigarette Are you DNR?: No Advance Directives: No Advance Directives Information Provided: Yes service: Yes Sexual orientation: Straight/Heterosexual Meds Allergies Allergy/AdvReac Type Severity Reaction Status Date / Time codeine Allergy Intermediate Rash Verified 12/02/22 06:13 Home Medications Medication Instructions Recorded Confirmed Last Taken Type carbidopa 25 mg-levodopa 100 mg 1 tab PO TID 05/01/23 05/01/23 Unknown History tablet carbidopa 25 mg-levodopa 100 mg tab PO BID 05/01/23 Unknown History tablet carbidopa 25 mg-levodopa 100 mg tab PO BID 05/01/23 Unknown History tablet carbidopa ER 50 mg-levodopa 200 mg 50 - 200 PO TID 05/01/23 Unknown History tablet,extended release Exam Exam Date and Time: May 10, 2023 0648 Height,Weight and Vital Signs: Height 5 ft 6 in Weight 93.44 kg Last Vital Signs Temp 97.2 F 05/10/23 06:21 Pulse 75 05/10/23 06:21 Resp 18 05/10/23 06:21 BP 145/79 H 05/10/23 06:21 Pulse Ox 95 05/10/23 06:21 O2 Del Method Room Air 05/10/23 06:21 Airway Mallampati Class: II TM Dist: >3cm Neck ROM: Full Heart: rrr Lungs: cta Assessment and Plan Assessment Anesthesia Assessment: Anesthesia Plan Discussed and Chart Reviewed Final Anesthetic Review Family History of Problems with Anesthesia: No History of Problems with Anesthesia: No NPO: Yes ASA Class: III Final Preanesthetic Review: No Changes in Pt Med Stat, Meds/Allgs Chart Reviewed and Consent Obtained/Reviewed Patient Risk: Intermediate Procedure Risk: Intermediate Anesthetic Plan Anesthetic Plan: GA Disposition: Standard PACU
--- NOTE | 2023-05-10 07:25 | MHC.SHP ---
Pre-Procedural Eval Section A Date of Service: 05/10/23 The patient is an INPATIENT: No Changes since office visit: Yes Changes in Medication and Yes Patient answered all questions; No Cold of Flu in the past 2 weeks and No New Medical Problems The History & Physical has been completed within 30 days and I have reviewed it.: No Section B Chief Complaint: depression Details of Present Illness: recurrent depression doing better with ect Relevant Social History: None Present Medications: see Short Stay Collaborative assessment Medical History: Significant History (parkinsons crohns disease) Allergies: Allergies Allergy/AdvReac Type Severity Reaction Status Date / Time codeine Allergy Intermediate Rash Verified 12/02/22 06:13 Review of Systems Sugical H&P ROS: Negative: Cardiovascular and Respiratory and Yes, Specify: Constitution, Neurological (tremor in parkinsons sx), Psychiatric (mood flatdepressed hopeless) and Musculoskeletal (knee pain) Exam Surgical H&P Exam: Normal: Heart and Normal: Lungs and Significant Findings: Extremities (hand arthritis) and Significant Findings: Neurological (mild tremor/slowed mentation) Exam Comment: full affect no confusion Plan Diagnosis/Plan: Unchanged I have reviewed the history and physical and performed a pertinent physical examination on my patient. No changes have occurred unless specified. Time Spent With Patient Time: Total time managing care of this patient today ____ minutes.
--- NOTE | 2023-05-10 09:47 | HO.ECTPROC ---
ECT Procedure Note Diagnosis/Treatment Date of Service: 05/10/23 Diagnosis: Major Depressive Disorder Previous ECT Date: 05/01/23 Treatment: Maintenance Interval Clinical Notes: pt mood much improved tolerating ect well Time: Total time managing care of this patient today ____ minutes. ECT Settings Device: THYMATRON DGx Electrode Placement: Rt temporal/ Lt frontal Program/Pulse Width: 0.50 Energy Percent: 100 Medications Administration General Anesthetic: Etomidate (14) Muscle Relaxant: Succinylcholine (120) Airway Management Airway Management: Bag Mask Ventilation Treatment Recommendations No Changes Recommended: No change Notes: f/u tx 2 weeks Pt Tolerated Procedure w/o Issue: Yes
== END 2023-05-10 09:03 | disposition home or self-care (01) ==
PROVIDERS: PCP Student in an Organized Health Care Education/Training Program; Visit Provider Psychiatry & Neurology Psychiatry
PROC: (CPT 90870; principal; 2023-05-10 15:30)
DX: F33.2 Major depressive disorder, recurrent severe without psychotic features (principal); Z88.5 Allergy status to narcotic agent; G20.A1 Parkinson's disease without dyskinesia, without mention of fluctuations; K50.90 Crohn's disease, unspecified, without complications; Z79.899 Other long term (current) drug therapy
CPT/HCPCS: 90870; J0330; J2405

== ENCOUNTER → 2023-05-10 05:57 | Outpatient (BNV) | payer OTHER, SELFPAY | PROVIDERS: PCP Student in an Organized Health Care Education/Training Program; Visit Provider Psychiatry & Neurology Psychiatry | DX: F33.3 Major depressive disorder, recurrent, severe with psychotic symptoms (principal) | CPT/HCPCS: 90870 ==

== ENCOUNTER 2023-05-24 05:56 | Day surgery (SDC) | payer OTHER, SELFPAY ==
[2023-05-24] VITALS (7 sets, daily range): BP systolic 147–175; BP diastolic 75–88; PULSE 67–76; RESP 12–20; TEMP 36.2–36.5; O2SAT 95–97; BMI 33.2
--- NOTE | 2023-05-24 06:53 | HO.ANESPROP2 ---
[facility] OF [facility] Active Problems Active Problems: All Active Problems (Updated 01/01/23 @ 15:56 by Tee Urbina MD) Major depressive disorder, recurrent episode, in partial remission with catatonia (Acute) Parkinson's disease (tremor, stiffness, slow motion, unstable posture) (Acute) Major depressive disorder, recurrent episode with mood-congruent psychotic features (Acute) Hypothyroidism (Acute) Vitamin B12 deficiency (Acute) Parkinsonian features (Acute) Crohn's disease (Acute) Past Medical History Medical History Crohn's disease Hypothyroidism Major depressive disorder, recurrent episode with mood-congruent psychotic features Osteoarthritis Parkinson's disease (tremor, stiffness, slow motion, unstable posture) Parkinsonian features Vitamin B12 deficiency Family History Family History Father Stomach cancer Mother Dementia Family history of problems with anesthesia: No Surgical History Surgical History S/P small bowel resection History of Problems with Anesthesia: No Social History Social History Household Members: Spouse Housing: House Do you presently have visiting nurse or other home services: No Patient Tobacco Use Status: Never used Tobacco Tobacco use type: Cigarette Advance Directives: No Advance Directives Information Provided: Yes service: Yes Sexual orientation: Straight/Heterosexual Meds Allergies Allergy/AdvReac Type Severity Reaction Status Date / Time codeine Allergy Intermediate Rash Verified 12/02/22 06:13 Home Medications Medication Instructions Recorded Confirmed Last Taken Type carbidopa 25 mg-levodopa 100 mg 1 tab PO TID 05/01/23 05/01/23 Unknown History tablet carbidopa 25 mg-levodopa 100 mg tab PO BID 05/01/23 Unknown History tablet carbidopa 25 mg-levodopa 100 mg tab PO BID 05/01/23 Unknown History tablet carbidopa ER 50 mg-levodopa 200 mg 50 - 200 PO TID 05/01/23 Unknown History tablet,extended release Exam Exam Date and Time: May 24, 2023 0653 Height,Weight and Vital Signs: Height 5 ft 6 in Weight 93.44 kg Last Vital Signs Temp 97.7 F 05/24/23 06:29 Pulse 70 05/24/23 06:29 Resp 20 05/24/23 06:29 BP 147/78 H 05/24/23 06:29 Pulse Ox 96 05/24/23 06:29 O2 Del Method Room Air 05/24/23 06:29 Airway Mallampati Class: II TM Dist: >3cm Neck ROM: Full Heart: rrr Lungs: cta Assessment and Plan Assessment Anesthesia Assessment: Anesthesia Plan Discussed and Chart Reviewed Final Anesthetic Review Family History of Problems with Anesthesia: No History of Problems with Anesthesia: No NPO: Yes ASA Class: III Final Preanesthetic Review: No Changes in Pt Med Stat, Meds/Allgs Chart Reviewed and Consent Obtained/Reviewed Patient Risk: Intermediate Procedure Risk: Intermediate Anesthetic Plan Anesthetic Plan: GA Disposition: Standard PACU
--- NOTE | 2023-05-24 07:30 | MHC.SHP ---
Pre-Procedural Eval Section A Date of Service: 05/24/23 Changes since office visit: Yes Changes in Medication and Yes Patient answered all questions; No Cold of Flu in the past 2 weeks and No New Medical Problems The History & Physical has been completed within 30 days and I have reviewed it.: No Section B Chief Complaint: depression Details of Present Illness: doing much better Present Medications: see Short Stay Collaborative assessment Medical History: Significant History Allergies: Allergies Allergy/AdvReac Type Severity Reaction Status Date / Time codeine Allergy Intermediate Rash Verified 12/02/22 06:13 Review of Systems Sugical H&P ROS: Negative: Constitution, Cardiovascular, Respiratory and Psychiatric (much improved) and Yes, Specify: Neurological (tremor) Exam Surgical H&P Exam: Normal: Heart and Normal: Lungs Plan Diagnosis/Plan: Unchanged I have reviewed the history and physical and performed a pertinent physical examination on my patient. No changes have occurred unless specified. Time Spent With Patient Time: Total time managing care of this patient today ____ minutes.
--- NOTE | 2023-05-24 07:51 | HO.ECTPROC ---
ECT Procedure Note Diagnosis/Treatment Date of Service: 05/24/23 Diagnosis: Major Depressive Disorder Previous ECT Date: 05/10/23 Treatment: Maintenance Interval Clinical Notes: pt doing quite well tolerating ect Time: Total time managing care of this patient today ____ minutes. ECT Settings Device: THYMATRON DGx Electrode Placement: Rt temporal/ Lt frontal Program/Pulse Width: 0.50 Energy Percent: 100 Seizure Duration By EEG (in seconds): 40 Medications Administration General Anesthetic: Etomidate (14) Muscle Relaxant: Succinylcholine (120) Airway Management Airway Management: Bag Mask Ventilation Treatment Recommendations No Changes Recommended: No change Notes: consider change back to bt if needed f/u 2 weeks
== END 2023-05-24 09:01 | disposition home or self-care (01) ==
PROVIDERS: PCP Student in an Organized Health Care Education/Training Program; Visit Provider Psychiatry & Neurology Psychiatry
PROC: (CPT 90870; principal; 2023-05-24 07:30)
DX: F33.2 Major depressive disorder, recurrent severe without psychotic features (principal); G20.A1 Parkinson's disease without dyskinesia, without mention of fluctuations; K50.90 Crohn's disease, unspecified, without complications; Z79.899 Other long term (current) drug therapy; Z88.5 Allergy status to narcotic agent
CPT/HCPCS: 90870; J0330

== ENCOUNTER → 2023-05-24 05:56 | Outpatient (BNV) | payer OTHER, SELFPAY | PROVIDERS: PCP Student in an Organized Health Care Education/Training Program; Visit Provider Psychiatry & Neurology Psychiatry | DX: F33.3 Major depressive disorder, recurrent, severe with psychotic symptoms (principal) | CPT/HCPCS: 90870 ==

== ENCOUNTER 2023-06-07 05:56 | Day surgery (SDC) | payer OTHER, SELFPAY ==
[2023-06-07] VITALS (7 sets, daily range): BP systolic 158–179; BP diastolic 85–94; PULSE 70–82; RESP 14–21; TEMP 36.3–36.8; O2SAT 93–96; BMI 31.9
--- NOTE | 2023-06-07 06:51 | P.CONAN_ITS ---
[facility] Active Problems Active Problems: All Active Problems (Updated 01/01/23 @ 15:56 by Tee Urbina MD) Major depressive disorder, recurrent episode, in partial remission with catatonia (Acute) Parkinson's disease (tremor, stiffness, slow motion, unstable posture) (Acute) Major depressive disorder, recurrent episode with mood-congruent psychotic features (Acute) Hypothyroidism (Acute) Vitamin B12 deficiency (Acute) Parkinsonian features (Acute) Crohn's disease (Acute) Past Medical History Medical History Crohn's disease Hypothyroidism Major depressive disorder, recurrent episode with mood-congruent psychotic features Osteoarthritis Parkinson's disease (tremor, stiffness, slow motion, unstable posture) Parkinsonian features Vitamin B12 deficiency Family History Family History Father Stomach cancer Mother Dementia Family history of problems with anesthesia: No Surgical History Surgical History S/P small bowel resection History of Problems with Anesthesia: No Social History Social History Household Members: Spouse Housing: House Do you presently have visiting nurse or other home services: No Patient Tobacco Use Status: Never used Tobacco Tobacco use type: Cigarette Advance Directives: No Advance Directives Information Provided: Yes service: Yes Sexual orientation: Straight/Heterosexual Meds Allergies Allergy/AdvReac Type Severity Reaction Status Date / Time codeine Allergy Intermediate Rash Verified 12/02/22 06:13 Home Medications Medication Instructions Recorded Confirmed Last Taken Type carbidopa 25 mg-levodopa 100 mg 1 tab PO TID 05/01/23 05/01/23 Unknown History tablet carbidopa 25 mg-levodopa 100 mg tab PO BID 05/01/23 Unknown History tablet carbidopa 25 mg-levodopa 100 mg tab PO BID 05/01/23 Unknown History tablet carbidopa ER 50 mg-levodopa 200 mg 50 - 200 PO TID 05/01/23 Unknown History tablet,extended release Exam Exam Date and Time: June 07, 2023 0651 Height,Weight and Vital Signs: Height 5 ft 8 in Weight 95.254 kg Last Vital Signs Temp 98.3 F 06/07/23 06:26 Pulse 72 06/07/23 06:26 Resp 19 06/07/23 06:26 BP 167/90 H 06/07/23 06:26 Pulse Ox 96 06/07/23 06:26 O2 Del Method Room Air 06/07/23 06:26 Airway Mallampati Class: II TM Dist: >3cm Neck ROM: Full Heart: rrr Lungs: cta Assessment and Plan Assessment Anesthesia Assessment: Anesthesia Plan Discussed and Chart Reviewed Final Anesthetic Review Family History of Problems with Anesthesia: No History of Problems with Anesthesia: No NPO: Yes ASA Class: III Final Preanesthetic Review: No Changes in Pt Med Stat, Meds/Allgs Chart Reviewed and Consent Obtained/Reviewed Patient Risk: Intermediate Procedure Risk: Intermediate Anesthetic Plan Anesthetic Plan: GA Disposition: Standard PACU
--- NOTE | 2023-06-07 07:00 | MHC.SHP ---
Pre-Procedural Eval Section A Date of Service: 06/07/23 The patient is an INPATIENT: No Changes since office visit: Yes Patient answered all questions; No Cold of Flu in the past 2 weeks, No New Medical Problems and No Changes in Medication The History & Physical has been completed within 30 days and I have reviewed it.: No Section B Chief Complaint: depression Details of Present Illness: recurrent dep parkinsons doing well in phy tx now Relevant Social History: None Present Medications: see Short Stay Collaborative assessment Medical History: Significant History Allergies: Allergies Allergy/AdvReac Type Severity Reaction Status Date / Time codeine Allergy Intermediate Rash Verified 12/02/22 06:13 Review of Systems Sugical H&P ROS: Negative: Constitution, Cardiovascular, Respiratory, Psychiatric (much improved) and Gastrointestinal and Yes, Specify: Neurological (tremor) Exam Surgical H&P Exam: Normal: Heart and Normal: Lungs Plan Diagnosis/Plan: Unchanged I have reviewed the history and physical and performed a pertinent physical examination on my patient. No changes have occurred unless specified. Time Spent With Patient Time: Total time managing care of this patient today ____ minutes.
--- NOTE | 2023-06-07 07:27 | HO.ECTPROC ---
ECT Procedure Note Diagnosis/Treatment Date of Service: 06/07/23 Diagnosis: Major Depressive Disorder Previous ECT Date: 05/24/23 Treatment: Maintenance Interval Clinical Notes: pt doing quite well tolerating ect started phy tx for parkinsons Time: Total time managing care of this patient today ____ minutes. ECT Settings Device: THYMATRON DGx Electrode Placement: Rt temporal/ Lt frontal Program/Pulse Width: 0.50 Energy Percent: 100 Seizure Duration By EEG (in seconds): 54 Medications Administration General Anesthetic: Etomidate (14) Muscle Relaxant: Succinylcholine (120) Airway Management Airway Management: Bag Mask Ventilation Treatment Recommendations No Changes Recommended: No change Notes: Patient appears to be doing quite well has been active in physical therapy case reviewed with patient and follow-up treatment 3 weeks trying to extend interval Pt Tolerated Procedure w/o Issue: Yes
== END 2023-06-07 08:56 | disposition home or self-care (01) ==
PROVIDERS: PCP Student in an Organized Health Care Education/Training Program; Visit Provider Psychiatry & Neurology Psychiatry
PROC: (CPT 90870; principal; 2023-06-07 08:00)
DX: F33.2 Major depressive disorder, recurrent severe without psychotic features (principal); G20.A1 Parkinson's disease without dyskinesia, without mention of fluctuations; K50.90 Crohn's disease, unspecified, without complications; Z90.49 Acquired absence of other specified parts of digestive tract; E03.9 Hypothyroidism, unspecified; E53.8 Deficiency of other specified B group vitamins; Z79.899 Other long term (current) drug therapy; Z88.5 Allergy status to narcotic agent
CPT/HCPCS: 90870; J0330

== ENCOUNTER → 2023-06-07 05:56 | Outpatient (BNV) | payer OTHER, SELFPAY | PROVIDERS: PCP Student in an Organized Health Care Education/Training Program; Visit Provider Psychiatry & Neurology Psychiatry | DX: F33.3 Major depressive disorder, recurrent, severe with psychotic symptoms (principal) | CPT/HCPCS: 90870 ==

== ENCOUNTER 2023-06-28 05:57 | Day surgery (SDC) | payer OTHER, SELFPAY ==
[2023-06-28] VITALS (9 sets, daily range): BP systolic 134–152; BP diastolic 71–80; PULSE 66–80; RESP 16–22; TEMP 36.1–36.6; O2SAT 95–98; BMI 33.9
--- NOTE | 2023-06-28 06:42 | HO.ANESPROP2 ---
[facility] Active Problems Active Problems: All Active Problems (Updated 01/01/23 @ 15:56 by Tee Urbina MD) Major depressive disorder, recurrent episode, in partial remission with catatonia (Acute) Parkinson's disease (tremor, stiffness, slow motion, unstable posture) (Acute) Major depressive disorder, recurrent episode with mood-congruent psychotic features (Acute) Hypothyroidism (Acute) Vitamin B12 deficiency (Acute) Parkinsonian features (Acute) Crohn's disease (Acute) Past Medical History Medical History Crohn's disease Hypothyroidism Major depressive disorder, recurrent episode with mood-congruent psychotic features Osteoarthritis Parkinson's disease (tremor, stiffness, slow motion, unstable posture) Parkinsonian features Vitamin B12 deficiency Family History Family History Father Stomach cancer Mother Dementia Family history of problems with anesthesia: No Surgical History Surgical History S/P small bowel resection History of Problems with Anesthesia: No Social History Social History Household Members: Spouse Housing: House Do you presently have visiting nurse or other home services: No Patient Tobacco Use Status: Never used Tobacco Tobacco use type: Cigarette Advance Directives: No Advance Directives Information Provided: Yes service: Yes Sexual orientation: Straight/Heterosexual Meds Allergies Allergy/AdvReac Type Severity Reaction Status Date / Time codeine Allergy Intermediate Rash Verified 12/02/22 06:13 Home Medications Medication Instructions Recorded Confirmed Last Taken Type carbidopa 25 mg-levodopa 100 mg 1 tab PO TID 05/01/23 05/01/23 Unknown History tablet carbidopa 25 mg-levodopa 100 mg tab PO BID 05/01/23 Unknown History tablet carbidopa 25 mg-levodopa 100 mg tab PO BID 05/01/23 Unknown History tablet carbidopa ER 50 mg-levodopa 200 mg 50 - 200 PO TID 05/01/23 Unknown History tablet,extended release Exam Height,Weight and Vital Signs: Height 5 ft 6 in Weight 95.254 kg Last Vital Signs Temp 98 F 06/28/23 06:32 Pulse 74 06/28/23 06:32 Resp 16 11/29/23 06:32 BP 139/80 06/28/23 06:32 Pulse Ox 96 06/28/23 06:32 O2 Del Method Room Air 06/28/23 06:32 Airway Mallampati Class: II TM Dist: >3cm Neck ROM: Full Heart: rrr Lungs: cta Assessment and Plan Assessment Anesthesia Assessment: Anesthesia Plan Discussed and Chart Reviewed Final Anesthetic Review Family History of Problems with Anesthesia: No History of Problems with Anesthesia: No NPO: Yes ASA Class: III Final Preanesthetic Review: No Changes in Pt Med Stat, Meds/Allgs Chart Reviewed and Consent Obtained/Reviewed Patient Risk: Intermediate Procedure Risk: Intermediate Anesthetic Plan Anesthetic Plan: GA Disposition: Standard PACU
--- NOTE | 2023-06-28 07:14 | MHC.SHP ---
Pre-Procedural Eval Section A Date of Service: 06/28/23 The patient is an INPATIENT: No Changes since office visit: Yes Patient answered all questions; No Cold of Flu in the past 2 weeks, No New Medical Problems and No Changes in Medication The History & Physical has been completed within 30 days and I have reviewed it.: No Section B Chief Complaint: depression Details of Present Illness: recurrent dep parkinsons doing well in phy tx now Relevant Social History: None Present Medications: see Short Stay Collaborative assessment Medical History: Significant History Allergies: Allergies Allergy/AdvReac Type Severity Reaction Status Date / Time codeine Allergy Intermediate Rash Verified 12/02/22 06:13 Review of Systems Sugical H&P ROS: Negative: Constitution, Cardiovascular, Respiratory, Psychiatric (much improved ongoing) and Gastrointestinal and Yes, Specify: Neurological (tremor) Exam Surgical H&P Exam: Normal: Heart and Normal: Lungs (clear) and Significant Findings: Neurological ( tremor) Plan Diagnosis/Plan: Unchanged I have reviewed the history and physical and performed a pertinent physical examination on my patient. No changes have occurred unless specified. Time Spent With Patient Time: Total time managing care of this patient today ____ minutes.
--- NOTE | 2023-06-28 07:14 | HO.ECTPROC ---
ECT Procedure Note Diagnosis/Treatment Date of Service: 06/28/23 Diagnosis: Major Depressive Disorder Previous ECT Date: 05/24/23 Treatment: Maintenance Interval Clinical Notes: pt doing quite well tolerating q 3 week ect full affect some tremor balance problems from parkinsons Time: Total time managing care of this patient today ____ minutes. ECT Settings Device: THYMATRON DGx Electrode Placement: Rt temporal/ Lt frontal Program/Pulse Width: 0.50 Energy Percent: 100 Seizure Duration By EEG (in seconds): 61 Medications Administration General Anesthetic: Etomidate (14) Muscle Relaxant: Succinylcholine (120) Ancillary Medications Miscillaneous Medications: Propofol Airway Management Airway Management: Bag Mask Ventilation Treatment Recommendations No Changes Recommended: No change Notes: Will extended interval again to 3 weeks after that will try from monthly as tolerated patient with a clear sensorium future oriented full affect able to enjoy things feeling much more stable Pt Tolerated Procedure w/o Issue: Yes
== END 2023-06-28 09:34 | disposition home or self-care (01) ==
PROVIDERS: PCP Student in an Organized Health Care Education/Training Program; Visit Provider Psychiatry & Neurology Psychiatry
PROC: (CPT 90870; principal; 2023-06-28 07:00)
DX: F33.2 Major depressive disorder, recurrent severe without psychotic features (principal); G20.A1 Parkinson's disease without dyskinesia, without mention of fluctuations; E03.9 Hypothyroidism, unspecified; E53.8 Deficiency of other specified B group vitamins; Z79.899 Other long term (current) drug therapy; Z88.5 Allergy status to narcotic agent; Z90.49 Acquired absence of other specified parts of digestive tract
CPT/HCPCS: 90870; J0330; J2704

== ENCOUNTER → 2023-06-28 05:57 | Outpatient (BNV) | payer MEDICARE, SELFPAY | PROVIDERS: PCP Student in an Organized Health Care Education/Training Program; Visit Provider Psychiatry & Neurology Psychiatry | DX: F33.3 Major depressive disorder, recurrent, severe with psychotic symptoms (principal) | CPT/HCPCS: 90870 ==

== ENCOUNTER 2023-07-19 05:58 | Day surgery (SDC) | payer OTHER, SELFPAY ==
[2023-07-19] VITALS (7 sets, daily range): BP systolic 136–168; BP diastolic 76–84; PULSE 73–84; RESP 16–22; TEMP 36.3–36.8; O2SAT 95–97; BMI 31.9
--- NOTE | 2023-07-19 06:47 | P.CONAN_ITS ---
[facility] Active Problems Active Problems: All Active Problems (Updated 01/01/23 @ 15:56 by Tee Urbian MD) Major depressive disorder, recurrent episode, in partial remission with catatonia (Acute) Parkinson's disease (tremor, stiffness, slow motion, unstable posture) (Acute) Major depressive disorder, recurrent episode with mood-congruent psychotic features (Acute) Hypothyroidism (Acute) Vitamin B12 deficiency (Acute) Parkinsonian features (Acute) Crohn's disease (Acute) Past Medical History Medical History Crohn's disease Hypothyroidism Major depressive disorder, recurrent episode with mood-congruent psychotic features Osteoarthritis Parkinson's disease (tremor, stiffness, slow motion, unstable posture) Parkinsonian features Vitamin B12 deficiency Family History Family History Father Stomach cancer Mother Dementia Family history of problems with anesthesia: No Surgical History Surgical History S/P small bowel resection History of Problems with Anesthesia: No Social History Social History Household Members: Spouse Housing: House Do you presently have visiting nurse or other home services: No Patient Tobacco Use Status: Never used Tobacco Tobacco use type: Cigarette Advance Directives: No Advance Directives Information Provided: Yes service: Yes Sexual orientation: Straight/Heterosexual Meds Allergies Allergy/AdvReac Type Severity Reaction Status Date / Time codeine Allergy Intermediate Rash Verified 12/02/22 06:13 Home Medications Medication Instructions Recorded Confirmed Last Taken Type carbidopa 25 mg-levodopa 100 mg 1 tab PO TID 05/01/23 05/01/23 Unknown History tablet carbidopa 25 mg-levodopa 100 mg tab PO BID 05/01/23 Unknown History tablet carbidopa 25 mg-levodopa 100 mg tab PO BID 05/01/23 Unknown History tablet carbidopa ER 50 mg-levodopa 200 mg 50 - 200 PO TID 05/01/23 Unknown History tablet,extended release Exam Height,Weight and Vital Signs: Height 5 ft 8 in Weight 95.254 kg Last Vital Signs Temp 98.2 F 07/19/23 06:36 Pulse 79 07/19/23 06:36 Resp 16 07/19/23 06:36 BP 157/80 H 07/19/23 06:36 Pulse Ox 95 07/19/23 06:36 O2 Del Method Room Air 07/19/23 06:36 Airway Mallampati Class: II TM Dist: >3cm Neck ROM: Full Heart: rrr Lungs: cta Assessment and Plan Assessment Anesthesia Assessment: Anesthesia Plan Discussed and Chart Reviewed Final Anesthetic Review Family History of Problems with Anesthesia: No History of Problems with Anesthesia: No NPO: Yes ASA Class: III Final Preanesthetic Review: No Changes in Pt Med Stat, Meds/Allgs Chart Reviewed and Consent Obtained/Reviewed Patient Risk: Intermediate Procedure Risk: Intermediate Anesthetic Plan Anesthetic Plan: GA Disposition: Standard PACU
--- NOTE | 2023-07-19 07:24 | MHC.SHP ---
Pre-Procedural Eval Section A Date of Service: 07/19/23 The patient is an INPATIENT: No Changes since office visit: Yes Patient answered all questions; No Cold of Flu in the past 2 weeks, No New Medical Problems and No Changes in Medication The History & Physical has been completed within 30 days and I have reviewed it.: No Section B Chief Complaint: depression Details of Present Illness: recurrent dep parkinsons doing well had rf ablation for knee mood stable Relevant Social History: None Present Medications: see Short Stay Collaborative assessment Medical History: Significant History Allergies: Allergies Allergy/AdvReac Type Severity Reaction Status Date / Time codeine Allergy Intermediate Rash Verified 12/02/22 06:13 Review of Systems Sugical H&P ROS: Negative: Constitution, Cardiovascular, Respiratory, Psychiatric (much improved ongoing) and Gastrointestinal and Yes, Specify: Neurological (tremor) Exam Surgical H&P Exam: Normal: Heart (rr) and Normal: Lungs (clear) and Significant Findings: Neurological ( tremor) Plan Diagnosis/Plan: Unchanged I have reviewed the history and physical and performed a pertinent physical examination on my patient. No changes have occurred unless specified. Time Spent With Patient Time: Total time managing care of this patient today ____ minutes.
--- NOTE | 2023-07-19 07:24 | HO.ECTPROC ---
ECT Procedure Note Diagnosis/Treatment Date of Service: 07/19/23 Diagnosis: Major Depressive Disorder Previous ECT Date: 06/28/23 Treatment: Maintenance Interval Clinical Notes: pt doing quite well tolerating q 3 week ect Time: Total time managing care of this patient today ____ minutes. ECT Settings Device: THYMATRON DGx Electrode Placement: Rt temporal/ Lt frontal Program/Pulse Width: 0.50 Energy Percent: 100 Seizure Duration By EEG (in seconds): 61 Medications Administration General Anesthetic: Etomidate (14) Muscle Relaxant: Succinylcholine (120) Ancillary Medications Miscillaneous Medications: Propofol Airway Management Airway Management: Bag Mask Ventilation Treatment Recommendations No Changes Recommended: No change Notes: Will extended interval again to 3 weeks after that will try from monthly as tolerated patient with a clear sensorium future oriented full affect able to enjoy things feeling much more stable Pt Tolerated Procedure w/o Issue: Yes
== END 2023-07-19 08:46 | disposition home or self-care (01) ==
PROVIDERS: PCP Student in an Organized Health Care Education/Training Program; Visit Provider Psychiatry & Neurology Psychiatry
PROC: (CPT 90870; principal; 2023-07-19 07:30)
DX: F33.2 Major depressive disorder, recurrent severe without psychotic features (principal); G20.A1 Parkinson's disease without dyskinesia, without mention of fluctuations; K50.90 Crohn's disease, unspecified, without complications; E03.9 Hypothyroidism, unspecified; E53.8 Deficiency of other specified B group vitamins; Z79.899 Other long term (current) drug therapy; Z88.5 Allergy status to narcotic agent
CPT/HCPCS: 90870; J0330; J2704

== ENCOUNTER → 2023-07-19 05:58 | Outpatient (BNV) | payer MEDICARE, SELFPAY | PROVIDERS: PCP Student in an Organized Health Care Education/Training Program; Visit Provider Psychiatry & Neurology Psychiatry | DX: F33.3 Major depressive disorder, recurrent, severe with psychotic symptoms (principal) | CPT/HCPCS: 90870 ==

== ENCOUNTER 2023-08-16 05:48 | Day surgery (SDC) | payer OTHER, SELFPAY ==
[2023-08-16] VITALS (8 sets, daily range): BP systolic 136–162; BP diastolic 76–89; PULSE 68–84; RESP 11–18; TEMP 36.4–37.2; O2SAT 94–96; BMI 33.4
--- NOTE | 2023-08-16 06:57 | HO.ANESPROP2 ---
[facility] Active Problems Active Problems: All Active Problems (Updated 01/01/23 @ 15:56 by Tee Urbina MD) Major depressive disorder, recurrent episode, in partial remission with catatonia (Acute) Parkinson's disease (tremor, stiffness, slow motion, unstable posture) (Acute) Major depressive disorder, recurrent episode with mood-congruent psychotic features (Acute) Hypothyroidism (Acute) Vitamin B12 deficiency (Acute) Parkinsonian features (Acute) Crohn's disease (Acute) Past Medical History Medical History Crohn's disease Hypothyroidism Major depressive disorder, recurrent episode with mood-congruent psychotic features Osteoarthritis Parkinson's disease (tremor, stiffness, slow motion, unstable posture) Parkinsonian features Vitamin B12 deficiency Family History Family History Father Stomach cancer Mother Dementia Family history of problems with anesthesia: No Surgical History Surgical History S/P small bowel resection History of Problems with Anesthesia: No Social History Social History Household Members: Spouse Housing: House Do you presently have visiting nurse or other home services: No Patient Tobacco Use Status: Never used Tobacco Tobacco use type: Cigarette Advance Directives: No Advance Directives Information Provided: Yes service: Yes Sexual orientation: Straight/Heterosexual Meds Allergies Allergy/AdvReac Type Severity Reaction Status Date / Time codeine Allergy Intermediate Rash Verified 12/02/22 06:13 Active Medications: Current Medications Lactated Ringer's (Lr) 1,000 mls @ 50 mls/hr IVCONT .Q20H [facility] Home Medications Medication Instructions Recorded Confirmed Last Taken Type carbidopa 25 mg-levodopa 100 mg 1 tab PO TID 05/01/23 05/01/23 Unknown History tablet carbidopa 25 mg-levodopa 100 mg tab PO BID 05/01/23 Unknown History tablet carbidopa 25 mg-levodopa 100 mg tab PO BID 05/01/23 Unknown History tablet carbidopa ER 50 mg-levodopa 200 mg 50 - 200 PO TID 05/01/23 Unknown History tablet,extended release Exam Height,Weight and Vital Signs: Height 5 ft 8 in Weight 99.79 kg Last Vital Signs Temp 97.8 F 01/17/24 06:36 Pulse 75 08/16/23 06:36 Resp 16 08/16/23 06:36 BP 141/83 H 08/16/23 06:36 Pulse Ox 96 08/16/23 06:36 O2 Del Method Room Air 08/16/23 06:36 Airway Mallampati Class: II TM Dist: >3cm Neck ROM: Full Heart: rrr Lungs: cta Assessment and Plan Assessment Anesthesia Assessment: Anesthesia Plan Discussed and Chart Reviewed Final Anesthetic Review Family History of Problems with Anesthesia: No History of Problems with Anesthesia: No NPO: Yes ASA Class: III Final Preanesthetic Review: No Changes in Pt Med Stat, Meds/Allgs Chart Reviewed and Consent Obtained/Reviewed Patient Risk: Intermediate Procedure Risk: Intermediate Anesthetic Plan Anesthetic Plan: GA Disposition: Standard PACU
--- NOTE | 2023-08-16 07:50 | MHC.SHP ---
Pre-Procedural Eval Section A Date of Service: 08/16/23 Section B Chief Complaint: depression Details of Present Illness: recurrent depression stable Relevant Social History: None Present Medications: see Short Stay Collaborative assessment Allergies: Allergies Allergy/AdvReac Type Severity Reaction Status Date / Time codeine Allergy Intermediate Rash Verified 12/02/22 06:13 Review of Systems Sugical H&P ROS: Negative: Cardiovascular, Respiratory and Psychiatric and Yes, Specify: Neurological (parkinsons) and Musculoskeletal (knee pain) Exam Surgical H&P Exam: Normal: Heart and Normal: Lungs Plan Diagnosis/Plan: Unchanged I have reviewed the history and physical and performed a pertinent physical examination on my patient. No changes have occurred unless specified. Time Spent With Patient Time: Total time managing care of this patient today _30___ minutes.
--- NOTE | 2023-08-16 07:51 | HO.ECTPROC ---
ECT Procedure Note Diagnosis/Treatment Date of Service: 08/16/23 Diagnosis: Major Depressive Disorder Previous ECT Date: 07/19/23 Treatment: Maintenance Interval Clinical Notes: pt stable doing well generally rfi mildly helpful for knee pain mood stable not overly depressed future oriented Time: Total time managing care of this patient today _30___ minutes. ECT Settings Device: THYMATRON DGx
== END 2023-08-16 09:26 | disposition home or self-care (01) ==
PROVIDERS: PCP Student in an Organized Health Care Education/Training Program; Visit Provider Psychiatry & Neurology Psychiatry
PROC: (CPT 90870; principal; 2023-08-16 07:30)
DX: F33.9 Major depressive disorder, recurrent, unspecified (principal); G20.A1 Parkinson's disease without dyskinesia, without mention of fluctuations
CPT/HCPCS: 90870; J0330; J2704

== ENCOUNTER → 2023-08-16 05:48 | Outpatient (BNV) | payer OTHER, SELFPAY | PROVIDERS: PCP Student in an Organized Health Care Education/Training Program; Visit Provider Psychiatry & Neurology Psychiatry | DX: F33.3 Major depressive disorder, recurrent, severe with psychotic symptoms (principal) | CPT/HCPCS: 90870 ==

== ENCOUNTER 2023-09-13 05:36 | Day surgery (SDC) | payer OTHER, SELFPAY ==
[2023-09-13] VITALS (7 sets, daily range): BP systolic 140–174; BP diastolic 78–86; PULSE 73–85; RESP 16–20; TEMP 36.1–36.2; O2SAT 96; BMI 33.9
--- NOTE | 2023-09-13 07:03 | HO.ANESPROP2 ---
[facility] Active Problems Active Problems: All Active Problems (Updated 01/01/23 @ 15:56 by Tee Urbina MD) Major depressive disorder, recurrent episode, in partial remission with catatonia (Acute) Parkinson's disease (tremor, stiffness, slow motion, unstable posture) (Acute) Major depressive disorder, recurrent episode with mood-congruent psychotic features (Acute) Hypothyroidism (Acute) Vitamin B12 deficiency (Acute) Parkinsonian features (Acute) Crohn's disease (Acute) Past Medical History Medical History Crohn's disease Hypothyroidism Major depressive disorder, recurrent episode with mood-congruent psychotic features Osteoarthritis Parkinson's disease (tremor, stiffness, slow motion, unstable posture) Parkinsonian features Vitamin B12 deficiency Family History Family History Father Stomach cancer Mother Dementia Family history of problems with anesthesia: No Surgical History Surgical History S/P small bowel resection History of Problems with Anesthesia: No Social History Social History Household Members: Spouse Housing: House Do you presently have visiting nurse or other home services: No Patient Tobacco Use Status: Never used Tobacco Tobacco use type: Cigarette Advance Directives: No Advance Directives Information Provided: Yes service: Yes Sexual orientation: Straight/Heterosexual Meds Allergies Allergy/AdvReac Type Severity Reaction Status Date / Time codeine Allergy Intermediate Rash Verified 12/02/22 06:13 Home Medications Medication Instructions Recorded Confirmed Last Taken Type carbidopa 25 mg-levodopa 100 mg 1 tab PO TID 05/01/23 05/01/23 Unknown History tablet carbidopa 25 mg-levodopa 100 mg tab PO BID 05/01/23 Unknown History tablet carbidopa 25 mg-levodopa 100 mg tab PO BID 05/01/23 Unknown History tablet carbidopa ER 50 mg-levodopa 200 mg 50 - 200 PO TID 05/01/23 Unknown History tablet,extended release Exam Height,Weight and Vital Signs: Height 5 ft 6 in Weight 95.254 kg Last Vital Signs Temp 97.1 F 09/13/23 06:36 Pulse 80 09/13/23 06:36 Resp 20 09/13/23 06:36 BP 142/84 H 09/13/23 06:36 Pulse Ox 96 09/13/23 06:36 O2 Del Method Room Air 09/13/23 06:36 Airway Mallampati Class: II (posts laterally) TM Dist: >3cm Neck ROM: Full Heart: rrr Lungs: cta Assessment and Plan Assessment Anesthesia Assessment: Anesthesia Plan Discussed and Chart Reviewed Final Anesthetic Review Family History of Problems with Anesthesia: No History of Problems with Anesthesia: No NPO: Yes ASA Class: III Final Preanesthetic Review: No Changes in Pt Med Stat, Meds/Allgs Chart Reviewed and Consent Obtained/Reviewed Patient Risk: Intermediate Procedure Risk: Intermediate Anesthetic Plan Anesthetic Plan: GA Disposition: Standard PACU
--- NOTE | 2023-09-13 07:25 | MHC.SHP ---
Pre-Procedural Eval Section A - 24 Hr Update-Section A only Date of Service: 09/13/23 Section B - Complete if H&P > 30 days Chief Complaint: depression Details of Present Illness: recurrent depression stable Relevant Social History: None Present Medications: see Short Stay Collaborative assessment Allergies: Allergies Allergy/AdvReac Type Severity Reaction Status Date / Time codeine Allergy Intermediate Rash Verified 12/02/22 06:13 Review of Systems Sugical H&P ROS: Negative: Cardiovascular, Respiratory and Psychiatric and Yes, Specify: Neurological (parkinsons dec voice tremor) and Musculoskeletal (knee pain) Exam Surgical H&P Exam: Normal: Heart and Normal: Lungs and Significant Findings: Neurological (tremor dec voice) Plan Diagnosis/Plan: Unchanged I have reviewed the history and physical and performed a pertinent physical examination on my patient. No changes have occurred unless specified. Time Spent With Patient Time: Total time managing care of this patient today ____ minutes.
--- NOTE | 2023-09-13 07:31 | HO.ECTPROC ---
ECT Procedure Note Diagnosis/Treatment Date of Service: 09/13/23 Diagnosis: Major Depressive Disorder Previous ECT Date: 08/16/23 Treatment: Maintenance Interval Clinical Notes: pt HAS BEEN SOMEWHAT MORE DOWN his Sinemet has needed to be increased and he has been having somewhat of a diminished voice secondary to Parkinson's. No weight loss future oriented but somewhat discouraged his last ECT was 4 weeks ago no SI no hallucinations Time: Total time managing care of this patient today _30___ minutes. ECT Settings Device: THYMATRON DGx Electrode Placement: Rt temporal/ Lt frontal Program/Pulse Width: 0.50 Energy Percent: 100 Seizure Duration By EEG (in seconds): 51 Medications Administration General Anesthetic: Etomidate (14) Muscle Relaxant: Succinylcholine (120) Ancillary Medications Miscillaneous Medications: Propofol Airway Management Airway Management: Bag Mask Ventilation Treatment Recommendations No Changes Recommended: No change Notes: Follow-up treatment 3-1/2 weeks copy to [facility] Pt Tolerated Procedure w/o Issue: Yes
== END 2023-09-13 09:12 | disposition home or self-care (01) ==
PROVIDERS: PCP Student in an Organized Health Care Education/Training Program; Visit Provider Psychiatry & Neurology Psychiatry
PROC: (CPT 90870; principal; 2023-09-13 07:30)
DX: F33.2 Major depressive disorder, recurrent severe without psychotic features (principal); G20.A1 Parkinson's disease without dyskinesia, without mention of fluctuations; K50.90 Crohn's disease, unspecified, without complications; E03.9 Hypothyroidism, unspecified; E53.8 Deficiency of other specified B group vitamins; Z79.899 Other long term (current) drug therapy; Z88.5 Allergy status to narcotic agent
CPT/HCPCS: 90870; J0330; J2704

== ENCOUNTER → 2023-09-13 05:36 | Outpatient (BNV) | payer OTHER, SELFPAY | PROVIDERS: PCP Student in an Organized Health Care Education/Training Program; Visit Provider Psychiatry & Neurology Psychiatry | DX: F33.3 Major depressive disorder, recurrent, severe with psychotic symptoms (principal) | CPT/HCPCS: 90870 ==

== ENCOUNTER 2023-10-06 05:39 | Day surgery (SDC) | payer OTHER, SELFPAY ==
[2023-10-06] VITALS (7 sets, daily range): BP systolic 137–173; BP diastolic 79–93; PULSE 73–81; RESP 16–20; TEMP 36.4–36.8; O2SAT 95–97; BMI 33.9
--- NOTE | 2023-10-06 06:46 | HO.ANESPROP2 ---
[facility] Active Problems Active Problems: All Active Problems (Updated 01/01/23 @ 15:56 by Tee Urbina MD) Major depressive disorder, recurrent episode, in partial remission with catatonia (Acute) Parkinson's disease (tremor, stiffness, slow motion, unstable posture) (Acute) Major depressive disorder, recurrent episode with mood-congruent psychotic features (Acute) Hypothyroidism (Acute) Vitamin B12 deficiency (Acute) Parkinsonian features (Acute) Crohn's disease (Acute) Past Medical History Medical History Crohn's disease Hypothyroidism Major depressive disorder, recurrent episode with mood-congruent psychotic features Osteoarthritis Parkinson's disease (tremor, stiffness, slow motion, unstable posture) Parkinsonian features Vitamin B12 deficiency Family History Family History Father Stomach cancer Mother Dementia Family history of problems with anesthesia: No Surgical History Surgical History S/P small bowel resection History of Problems with Anesthesia: No Social History Social History Household Members: Spouse Housing: House Do you presently have visiting nurse or other home services: No Patient Tobacco Use Status: Never used Tobacco Tobacco use type: Cigarette Advance Directives: No Advance Directives Information Provided: Yes service: Yes Sexual orientation: Straight/Heterosexual Meds Allergies Allergy/AdvReac Type Severity Reaction Status Date / Time codeine Allergy Intermediate Rash Verified 12/02/22 06:13 Home Medications Medication Instructions Recorded Confirmed Last Taken Type carbidopa 25 mg-levodopa 100 mg 1 tab PO TID 05/01/23 05/01/23 Unknown History tablet carbidopa 25 mg-levodopa 100 mg tab PO BID 05/01/23 Unknown History tablet carbidopa 25 mg-levodopa 100 mg tab PO BID 05/01/23 Unknown History tablet carbidopa ER 50 mg-levodopa 200 mg 50 - 200 PO TID 05/01/23 Unknown History tablet,extended release Exam Height,Weight and Vital Signs: Height 5 ft 6 in Weight 95.254 kg Last Vital Signs Temp 98.2 F 10/06/23 06:25 Pulse 79 10/06/23 06:25 Resp 16 10/06/23 06:25 BP 147/87 H 10/06/23 06:25 Pulse Ox 96 10/06/23 06:25 O2 Del Method Room Air 10/06/23 06:25 Airway Mallampati Class: II TM Dist: >3cm Neck ROM: Full Heart: rrr Lungs: cta Assessment and Plan Assessment Anesthesia Assessment: Anesthesia Plan Discussed and Chart Reviewed Final Anesthetic Review Family History of Problems with Anesthesia: No History of Problems with Anesthesia: No NPO: Yes ASA Class: III Final Preanesthetic Review: No Changes in Pt Med Stat, Meds/Allgs Chart Reviewed and Consent Obtained/Reviewed Patient Risk: Intermediate Procedure Risk: Intermediate Anesthetic Plan Anesthetic Plan: GA Disposition: Standard PACU
--- NOTE | 2023-10-06 07:03 | MHC.SHP ---
Pre-Procedural Eval Section A - 24 Hr Update-Section A only Date of Service: 10/06/23 The patient is an INPATIENT: No Section B - Complete if H&P > 30 days Chief Complaint: depression Details of Present Illness: recurrent depression stable Relevant Social History: None Present Medications: see Short Stay Collaborative assessment Allergies: Allergies Allergy/AdvReac Type Severity Reaction Status Date / Time codeine Allergy Intermediate Rash Verified 12/02/22 06:13 Review of Systems Sugical H&P ROS: Negative: Cardiovascular, Respiratory and Psychiatric (some anxiety re parkinsons) and Yes, Specify: Neurological (parkinsons dec voice tremor) and Musculoskeletal (knee pain) Exam Surgical H&P Exam: Normal: Heart and Normal: Lungs and Significant Findings: Neurological (tremor ) Plan Diagnosis/Plan: Unchanged I have reviewed the history and physical and performed a pertinent physical examination on my patient. No changes have occurred unless specified. Time Spent With Patient Time: Total time managing care of this patient today _30___ minutes.
--- NOTE | 2023-10-06 07:33 | HO.ECTPROC ---
ECT Procedure Note Diagnosis/Treatment Date of Service: 10/06/23 Diagnosis: Major Depressive Disorder Previous ECT Date: 09/13/23 Treatment: Maintenance Interval Clinical Notes: pt generally doing ok periods of dysphoria related to parkinsons Time: Total time managing care of this patient today ____ minutes. ECT Settings Device: THYMATRON DGx Electrode Placement: Rt temporal/ Lt frontal Program/Pulse Width: 0.50 Energy Percent: 100 Seizure Duration By EEG (in seconds): 54 Medications Administration General Anesthetic: Etomidate (14) Muscle Relaxant: Succinylcholine (120) Ancillary Medications Miscillaneous Medications: Propofol (30) Airway Management Airway Management: Bag Mask Ventilation Treatment Recommendations No Changes Recommended: No change Notes: f/u 3-4 wks pt continues to benefit from outpt maint ect Pt Tolerated Procedure w/o Issue: Yes
== END 2023-10-06 08:50 | disposition home or self-care (01) ==
PROVIDERS: PCP Student in an Organized Health Care Education/Training Program; Visit Provider Psychiatry & Neurology Psychiatry
PROC: (CPT 90870; principal; 2023-10-06 07:00)
DX: F33.3 Major depressive disorder, recurrent, severe with psychotic symptoms (principal); G20.A1 Parkinson's disease without dyskinesia, without mention of fluctuations; K50.90 Crohn's disease, unspecified, without complications; E03.9 Hypothyroidism, unspecified; Z79.899 Other long term (current) drug therapy; Z88.5 Allergy status to narcotic agent
CPT/HCPCS: 90870; J0330; J2704

== ENCOUNTER → 2023-10-06 05:39 | Outpatient (BNV) | payer OTHER, SELFPAY | PROVIDERS: PCP Student in an Organized Health Care Education/Training Program; Visit Provider Psychiatry & Neurology Psychiatry | DX: F33.3 Major depressive disorder, recurrent, severe with psychotic symptoms (principal) | CPT/HCPCS: 90870 ==

== ENCOUNTER 2023-10-30 05:38 | Day surgery (SDC) | payer OTHER, SELFPAY ==
[2023-10-30] VITALS (7 sets, daily range): BP systolic 152–174; BP diastolic 81–99; PULSE 74–84; RESP 16–20; TEMP 36.3–36.6; O2SAT 97–100; BMI 34.7
--- NOTE | 2023-10-30 07:01 | MHC.SHP ---
Pre-Procedural Eval Section A - 24 Hr Update-Section A only Date of Service: 10/30/23 The patient is an INPATIENT: No Changes since office visit: No Cold of Flu in the past 2 weeks, No New Medical Problems, No Changes in Medication and No Patient answered all questions The patient has been examined within 24 hours of the surgical procedure. The History & Physical has been completed within 30 days and I have reviewed it.: Yes Section B - Complete if H&P > 30 days Chief Complaint: depression Allergies: Allergies Allergy/AdvReac Type Severity Reaction Status Date / Time codeine Allergy Intermediate Rash Verified 12/02/22 06:13 Plan I have reviewed the history and physical and performed a pertinent physical examination on my patient. No changes have occurred unless specified. Time Spent With Patient Time: Total time managing care of this patient today ____ minutes.
--- NOTE | 2023-10-30 07:13 | P.CONAN_ITS ---
[facility] Active Problems Active Problems: All Active Problems (Updated 01/01/23 @ 15:56 by Tee Urbina MD) Major depressive disorder, recurrent episode, in partial remission with catatonia (Acute) Parkinson's disease (tremor, stiffness, slow motion, unstable posture) (Acute) Major depressive disorder, recurrent episode with mood-congruent psychotic features (Acute) Hypothyroidism (Acute) Vitamin B12 deficiency (Acute) Parkinsonian features (Acute) Crohn's disease (Acute) Past Medical History Medical History Parkinson's disease (tremor, stiffness, slow motion, unstable posture) Osteoarthritis Crohn's disease Parkinsonian features Vitamin B12 deficiency Hypothyroidism Major depressive disorder, recurrent episode with mood-congruent psychotic features Family History Family History Father Stomach cancer Mother Dementia Family history of problems with anesthesia: No Surgical History Surgical History S/P small bowel resection History of Problems with Anesthesia: No Social History Social History Household Members: Spouse Housing: House Do you presently have visiting nurse or other home services: No Patient Tobacco Use Status: Never used Tobacco Tobacco use type: Cigarette Advance Directives: No Advance Directives Information Provided: Yes service: Yes Sexual orientation: Straight/Heterosexual Meds Allergies Allergy/AdvReac Type Severity Reaction Status Date / Time codeine Allergy Intermediate Rash Verified 12/02/22 06:13 Home Medications Medication Instructions Recorded Confirmed Last Taken Type carbidopa 25 mg-levodopa 100 mg 1 tab PO TID 05/01/23 05/01/23 Unknown History tablet carbidopa 25 mg-levodopa 100 mg tab PO BID 05/01/23 Unknown History tablet carbidopa 25 mg-levodopa 100 mg tab PO BID 05/01/23 Unknown History tablet carbidopa ER 50 mg-levodopa 200 mg 50 - 200 PO TID 05/01/23 Unknown History tablet,extended release Exam Height,Weight and Vital Signs: Height 5 ft 6 in Weight 97.522 kg Last Vital Signs Temp 97.4 F 10/30/23 07:09 Pulse 74 10/30/23 07:09 Resp 16 10/30/23 07:09 BP 172/99 H 10/30/23 07:09 Pulse Ox 100 10/30/23 07:09 O2 Del Method Room Air 10/30/23 07:09 Airway Mallampati Class: III TM Dist: >3cm Neck ROM: Full Loose/Missing/Broken Teeth: No Heart: RRR Lungs: CTA Assessment and Plan Final Anesthetic Review Family History of Problems with Anesthesia: No History of Problems with Anesthesia: No ASA Class: II Final Preanesthetic Review: Meds/Allgs Chart Reviewed, Consent Obtained/Reviewed and Anes Risks/Benef Reviewed Patient Risk: Low Procedure Risk: Intermediate Anesthetic Plan Anesthetic Plan: GA Disposition: Standard PACU
--- NOTE | 2023-10-30 07:36 | HO.ECTPROC ---
ECT Procedure Note Diagnosis/Treatment Date of Service: 10/30/23 Diagnosis: Major Depressive Disorder Previous ECT Date: 10/06/23 Treatment: Maintenance Interval Clinical Notes: The patient reported feeling fine, no new symptoms. Parkinson's disease under control, he only took his Parkinson's medications today AM. He denies side effects with previous ECT. ECT done as usual, no complications, woke up well. Today, we didn't give him Propofol. Time: Total time managing care of this patient today __30__ minutes. ECT Settings Device: THYMATRON DGx Electrode Placement: Rt temporal/ Lt frontal Program/Pulse Width: 0.50 Energy Percent: 100 Seizure Duration By EEG (in seconds): 63 By Motor Observation (in seconds): 35 Medications Administration General Anesthetic: Etomidate (14) Muscle Relaxant: Succinylcholine (120) Airway Management Airway Management: Bag Mask Ventilation Treatment Recommendations No Changes Recommended: No change Pt Tolerated Procedure w/o Issue: Yes
== END 2023-10-30 09:11 | disposition home or self-care (01) ==
PROVIDERS: PCP Student in an Organized Health Care Education/Training Program; Referring Provider Student in an Organized Health Care Education/Training Program; Visit Provider Psychiatry & Neurology Psychiatry
PROC: (CPT 90870; principal; 2023-10-30 07:30)
DX: F33.2 Major depressive disorder, recurrent severe without psychotic features (principal); G20.A1 Parkinson's disease without dyskinesia, without mention of fluctuations; K50.90 Crohn's disease, unspecified, without complications; E03.9 Hypothyroidism, unspecified; Z79.899 Other long term (current) drug therapy; Z88.5 Allergy status to narcotic agent; E53.8 Deficiency of other specified B group vitamins
CPT/HCPCS: 90870; J0330; J2704

== ENCOUNTER → 2023-10-30 05:38 | Outpatient (BNV) | payer OTHER, SELFPAY | PROVIDERS: PCP Student in an Organized Health Care Education/Training Program; Visit Provider Psychiatry & Neurology Psychiatry | DX: F33.3 Major depressive disorder, recurrent, severe with psychotic symptoms (principal) | CPT/HCPCS: 90870 ==

== ENCOUNTER 2023-11-24 05:31 | Day surgery (SDC) | payer OTHER, SELFPAY ==
[2023-11-24] VITALS (7 sets, daily range): BP systolic 116–148; BP diastolic 75–83; PULSE 71–90; RESP 16–21; TEMP 36.4–36.9; O2SAT 92–97; BMI 35.5
--- NOTE | 2023-11-24 06:51 | HO.ANESPROP2 ---
[facility] Active Problems Active Problems: All Active Problems Major depressive disorder, recurrent episode, in partial remission with catatonia (Acute) Parkinson's disease (tremor, stiffness, slow motion, unstable posture) (Acute) Major depressive disorder, recurrent episode with mood-congruent psychotic features (Acute) Hypothyroidism (Acute) Vitamin B12 deficiency (Acute) Parkinsonian features (Acute) Crohn's disease (Acute) Past Medical History Medical History Parkinson's disease (tremor, stiffness, slow motion, unstable posture) Osteoarthritis Crohn's disease Parkinsonian features Vitamin B12 deficiency Hypothyroidism Major depressive disorder, recurrent episode with mood-congruent psychotic features Family History Family History Father Stomach cancer Mother Dementia Family history of problems with anesthesia: No Surgical History Surgical History S/P small bowel resection History of Problems with Anesthesia: No Social History Social History Household Members: Spouse Housing: House Do you presently have visiting nurse or other home services: No Patient Tobacco Use Status: Never used Tobacco Tobacco use type: Cigarette Advance Directives: No Advance Directives Information Provided: Yes service: Yes Sexual orientation: Straight/Heterosexual Meds Allergies Allergy/AdvReac Type Severity Reaction Status Date / Time codeine Allergy Intermediate Rash Verified 12/02/22 06:13 Home Medications ?Medication ?Instructions ?Recorded ?Confirmed ?Last Taken ?Type carbidopa 25 mg-levodopa 100 mg 1 tab PO TID 05/01/23 05/01/23 Unknown History tablet carbidopa 25 mg-levodopa 100 mg tab PO BID 05/01/23 Unknown History tablet carbidopa 25 mg-levodopa 100 mg tab PO BID 05/01/23 Unknown History tablet carbidopa ER 50 mg-levodopa 200 mg 50 - 200 PO TID 05/01/23 Unknown History tablet,extended release Exam Height,Weight and Vital Signs: Height 5 ft 6 in Weight 99.79 kg Last Vital Signs Temp 97.6 F 11/24/23 06:35 Pulse 71 11/24/23 06:35 Resp 16 11/24/23 06:35 BP 148/83 H 11/24/23 06:35 Pulse Ox 96 11/24/23 06:35 O2 Del Method Room Air 11/24/23 06:35 Airway Mallampati Class: II TM Dist: >3cm Neck ROM: Full Heart: rrr Lungs: cta Assessment and Plan Assessment Anesthesia Assessment: Anesthesia Plan Discussed and Chart Reviewed Final Anesthetic Review Family History of Problems with Anesthesia: No History of Problems with Anesthesia: No NPO: Yes ASA Class: III Final Preanesthetic Review: No Changes in Pt Med Stat, Meds/Allgs Chart Reviewed and Consent Obtained/Reviewed Patient Risk: Intermediate Procedure Risk: Intermediate Anesthetic Plan Anesthetic Plan: GA Disposition: Standard PACU
[2023-11-24] MEDS: Lactated Ringers 1,000 ML 50 ML IVCONT (06:58)
--- NOTE | 2023-11-24 07:32 | MHC.SHP ---
Pre-Procedural Eval Section A - 24 Hr Update-Section A only Date of Service: 11/24/23 The patient is an INPATIENT: No Changes since office visit: No Cold of Flu in the past 2 weeks, No New Medical Problems, No Changes in Medication and No Patient answered all questions The patient has been examined within 24 hours of the surgical procedure. The History & Physical has been completed within 30 days and I have reviewed it.: Yes Section B - Complete if H&P > 30 days Chief Complaint: depression Details of Present Illness: recurrent depression stable good spirits Relevant Social History: None Present Medications: see Short Stay Collaborative assessment Allergies: Allergies Allergy/AdvReac Type Severity Reaction Status Date / Time codeine Allergy Intermediate Rash Verified 12/02/22 06:13 Review of Systems Sugical H&P ROS: Negative: Cardiovascular, Respiratory and Psychiatric (some anxiety re parkinsons) and Yes, Specify: Neurological (parkinsons dec voice tremor) and Musculoskeletal (knee pain) Review of Systems Comment: no change Exam Surgical H&P Exam: Normal: Heart and Normal: Lungs and Significant Findings: Neurological (tremor ) Plan Diagnosis/Plan: Unchanged I have reviewed the history and physical and performed a pertinent physical examination on my patient. No changes have occurred unless specified. Time Spent With Patient Time: Total time managing care of this patient today ____ minutes.
--- NOTE | 2023-11-24 07:33 | HO.ECTPROC ---
ECT Procedure Note Diagnosis/Treatment Date of Service: 11/24/23 Diagnosis: Major Depressive Disorder Previous ECT Date: 10/30/23 Treatment: Maintenance Interval Clinical Notes: The patient reported feeling well ,no c/o side effects no new medical concerns. He is in good spirits recently he and his got a new puppy and they are excited. No psychotic symptoms . Time: Total time managing care of this patient today __30__ minutes. ECT Settings Device: THYMATRON DGx Electrode Placement: Rt temporal/ Lt frontal Program/Pulse Width: 0.50 Energy Percent: 100 Seizure Duration By EEG (in seconds): 60 Medications Administration General Anesthetic: Etomidate (14) Muscle Relaxant: Succinylcholine (120) Ancillary Medications Miscillaneous Medications: Propofol (30 plus 30 htn) Airway Management Airway Management: Bag Mask Ventilation Treatment Recommendations No Changes Recommended: No change Notes: Follow-up treatment in 4 weeks. Patient call if symptomatic in between treatment. Required 30+ 30 of propofol for hypertension by anesthesia Pt Tolerated Procedure w/o Issue: Yes
== END 2023-11-24 09:10 | disposition home or self-care (01) ==
PROVIDERS: PCP Student in an Organized Health Care Education/Training Program; Visit Provider Psychiatry & Neurology Psychiatry
PROC: (CPT 90870; principal; 2023-11-24 07:30)
DX: F33.41 Major depressive disorder, recurrent, in partial remission (principal); F06.1 Catatonic disorder due to known physiological condition; G20.A1 Parkinson's disease without dyskinesia, without mention of fluctuations; K50.90 Crohn's disease, unspecified, without complications; E03.9 Hypothyroidism, unspecified; E53.8 Deficiency of other specified B group vitamins; Z79.899 Other long term (current) drug therapy; Z88.5 Allergy status to narcotic agent
CPT/HCPCS: 90870; J0330; J1596; J1805; J2704

== ENCOUNTER → 2023-11-24 05:31 | Outpatient (BNV) | payer OTHER, SELFPAY | PROVIDERS: PCP Student in an Organized Health Care Education/Training Program; Visit Provider Psychiatry & Neurology Psychiatry | DX: F33.3 Major depressive disorder, recurrent, severe with psychotic symptoms (principal) | CPT/HCPCS: 90870 ==

== ENCOUNTER 2023-12-22 05:41 | Day surgery (SDC) | payer OTHER, SELFPAY ==
[2023-12-22] VITALS (7 sets, daily range): BP systolic 133–173; BP diastolic 78–97; PULSE 75–91; RESP 16–20; TEMP 36.2–36.8; O2SAT 94–98; BMI 32.3
--- NOTE | 2023-12-22 06:52 | HO.ANESPROP2 ---
[facility] Active Problems Active Problems: All Active Problems Major depressive disorder, recurrent episode, in partial remission with catatonia (Acute) Parkinson's disease (tremor, stiffness, slow motion, unstable posture) (Acute) Major depressive disorder, recurrent episode with mood-congruent psychotic features (Acute) Hypothyroidism (Acute) Vitamin B12 deficiency (Acute) Parkinsonian features (Acute) Crohn's disease (Acute) Past Medical History Medical History Parkinson's disease (tremor, stiffness, slow motion, unstable posture) Osteoarthritis Crohn's disease Parkinsonian features Vitamin B12 deficiency Hypothyroidism Major depressive disorder, recurrent episode with mood-congruent psychotic features Family History Family History Father Stomach cancer Mother Dementia Family history of problems with anesthesia: No Surgical History Surgical History S/P small bowel resection History of Problems with Anesthesia: No Social History Social History Household Members: Spouse Housing: House Do you presently have visiting nurse or other home services: No Patient Tobacco Use Status: Never used Tobacco Tobacco use type: Cigarette Advance Directives: No Advance Directives Information Provided: Yes service: Yes Sexual orientation: Straight/Heterosexual Meds Allergies Allergy/AdvReac Type Severity Reaction Status Date / Time codeine Allergy Intermediate Rash Verified 12/02/22 06:13 Active Medications: Current Medications Lactated Ringer's (Lr) 1,000 mls @ 50 mls/hr IVCONT .Q20H [facility] Home Medications ?Medication ?Instructions ?Recorded ?Confirmed ?Last Taken ?Type carbidopa 25 mg-levodopa 100 mg 1 tab PO TID 05/01/23 05/01/23 Unknown History tablet carbidopa 25 mg-levodopa 100 mg tab PO BID 05/01/23 Unknown History tablet carbidopa 25 mg-levodopa 100 mg tab PO BID 05/01/23 Unknown History tablet carbidopa ER 50 mg-levodopa 200 mg 50 - 200 PO TID 05/01/23 Unknown History tablet,extended release amoxicillin 500 mg capsule 1,000 mg PO BID 12/22/23 12/22/23 Unknown History clarithromycin 500 mg tablet 500 mg PO BID 12/22/23 12/22/23 Unknown History metronidazole 500 mg tablet 500 mg PO BID 12/22/23 12/22/23 Unknown History metronidazole 500 mg tablet 500 mg PO BID 12/22/23 12/22/23 Unknown History Exam Height,Weight and Vital Signs: Height 5 ft 6 in Weight 90.718 kg Last Vital Signs Temp 97.6 F 12/22/23 06:46 Pulse 91 12/22/23 06:46 Resp 18 12/22/23 06:46 BP 173/97 H 12/22/23 06:46 Pulse Ox 98 12/22/23 06:46 O2 Del Method Room Air 12/22/23 06:46 Assessment and Plan Assessment Anesthesia Assessment: Anesthesia Plan Discussed and Chart Reviewed Final Anesthetic Review Family History of Problems with Anesthesia: No History of Problems with Anesthesia: No NPO: Yes ASA Class: III Final Preanesthetic Review: No Changes in Pt Med Stat, Meds/Allgs Chart Reviewed and Consent Obtained/Reviewed Patient Risk: Intermediate Procedure Risk: Intermediate Anesthetic Plan Anesthetic Plan: GA Disposition: Standard PACU
[2023-12-22] MEDS: Lactated Ringers 1,000 ML 50 ML IVCONT (06:53)
[2023-12-22 07:28] LABS: Anion Gap 11 (12-20); Blood Urea Nitrogen 10 mg/dL (9-16); Calcium 8.8 mg/dL (8.4-10.2); Carbon Dioxide 21 mmol/L (22-29); Chloride 111 mmol/L (96-108); Estimated Glomerular Filt Rate > 60; Glucose Random 109 mg/dL (60-115); Potassium 4.2 mmol/L (3.3-5.1); Sodium 139 mmol/L (135-145)
--- NOTE | 2023-12-22 07:30 | P.HPSUR_ITS ---
Pre-Procedural Eval Section A - 24 Hr Update-Section A only Date of Service: 12/22/23 The patient is an INPATIENT: No Changes since office visit: Yes Cold of Flu in the past 2 weeks, Yes New Medical Problems, Yes Changes in Medication and Yes Patient answered all questions Section B - Complete if H&P > 30 days Chief Complaint: depression Details of Present Illness: the patient is currently euthymic, no changes Relevant Family History (Specify if Yes): No Relevant Social History: None Present Medications: None Medical History: No relevant PMH History of Previous Operations: No relevant previous surgery Allergies: Allergies Allergy/AdvReac Type Severity Reaction Status Date / Time codeine Allergy Intermediate Rash Verified 12/02/22 06:13 Review of Systems Sugical H&P ROS: Negative: Constitution, Cardiovascular, Respiratory, Neurological, Psychiatric, Hem-Onc, Allergic/Immunologic, Gastrointestinal, Genitourinary, Musculoskeletal, Integumentary, Endocrine and Eyes/Ears/Nose/Thr oat Exam Surgical H&P Exam: Normal: HEENT, Normal: Heart, Normal: Lungs, Normal: Extremities, Normal: Abdomen, Normal: Skin and Normal: Neurological Plan Diagnosis/Plan: Unchanged I have reviewed the history and physical and performed a pertinent physical examination on my patient. No changes have occurred unless specified. Time Spent With Patient Time: Total time managing care of this patient today __20__ minutes.
--- NOTE | 2023-12-22 07:50 | HO.ECTPROC ---
ECT Procedure Note Diagnosis/Treatment Date of Service: 12/22/23 Diagnosis: Major Depressive Disorder Previous ECT Date: 11/24/23 Treatment: Maintenance Interval Clinical Notes: The patient reported euthymia, he recently adopted a new Pomeranian puppy. He reported that since he has Crohn's disease, his physician ordered upper Gi endoscopy soon. No new changes on medications. He denied prior side effects with previous ECT. ECT done as usual, no complications, woke up well. Time: Total time managing care of this patient today _30___ minutes. ECT Settings Device: THYMATRON DGx Electrode Placement: Rt temporal/ Lt frontal Program/Pulse Width: 0.50 Energy Percent: 100 Seizure Duration By EEG (in seconds): 63 By Motor Observation (in seconds): 31 Medications Administration General Anesthetic: Etomidate (14) Muscle Relaxant: Succinylcholine (120) Ancillary Medications Miscillaneous Medications: Propofol (this time Propofol not given) Airway Management Airway Management: Bag Mask Ventilation Treatment Recommendations No Changes Recommended: No change Notes: F/u in 4 weeks Pt Tolerated Procedure w/o Issue: Yes
--- NOTE | 2023-12-22 08:33 | ECG_ITS ---
Test Reason : POST ECT Blood Pressure : / mmHG Vent. Rate : 079 BPM Atrial Rate : 079 BPM P-R Int : 152 ms QRS Dur : 096 ms QT Int : 366 ms P-R-T Axes : 055 024 040 degrees QTc Int : 419 ms Normal sinus rhythm Normal ECG When compared with ECG of 07-JUL-2022 15:13, No significant change was found Referred By: Jones Valles Electronically Signed By:Dale Macias
== END 2023-12-22 09:26 | disposition home or self-care (01) ==
PROVIDERS: PCP Student in an Organized Health Care Education/Training Program; Visit Provider Psychiatry & Neurology Psychiatry
PROC: (CPT 90870; principal; 2023-12-22 07:00)
DX: F33.41 Major depressive disorder, recurrent, in partial remission (principal); G20.C Parkinsonism, unspecified; K50.90 Crohn's disease, unspecified, without complications; E53.8 Deficiency of other specified B group vitamins; Z79.899 Other long term (current) drug therapy
CPT/HCPCS: 36415; 80048; 90870; 93005; J0330; J1596; J1805; J2405; J2704

== ENCOUNTER → 2023-12-22 05:41 | Outpatient (BNV) | payer OTHER, SELFPAY | PROVIDERS: PCP Student in an Organized Health Care Education/Training Program; Visit Provider Psychiatry & Neurology Psychiatry | DX: F33.3 Major depressive disorder, recurrent, severe with psychotic symptoms (principal) | CPT/HCPCS: 90870 ==

== ENCOUNTER → 2023-12-22 08:33 | Outpatient (BNV) | payer OTHER, SELFPAY | PROVIDERS: PCP Student in an Organized Health Care Education/Training Program; Visit Provider Internal Medicine Cardiovascular Disease | DX: F33.3 Major depressive disorder, recurrent, severe with psychotic symptoms (principal) | CPT/HCPCS: 93010 ==

== ENCOUNTER 2024-01-22 05:42 | Day surgery (SDC) | payer OTHER, SELFPAY ==
[2024-01-22] VITALS (8 sets, daily range): BP systolic 115–172; BP diastolic 68–89; PULSE 68–80; RESP 19–23; TEMP 36.1–36.5; O2SAT 95–98; BMI 34.7
--- NOTE | 2024-01-22 06:34 | HO.ANESPROP2 ---
[facility] Active Problems Active Problems: All Active Problems Major depressive disorder, recurrent episode, in partial remission with catatonia (Acute) Parkinson's disease (tremor, stiffness, slow motion, unstable posture) (Acute) Major depressive disorder, recurrent episode with mood-congruent psychotic features (Acute) Hypothyroidism (Acute) Vitamin B12 deficiency (Acute) Parkinsonian features (Acute) Crohn's disease (Acute) Past Medical History Medical History Parkinson's disease (tremor, stiffness, slow motion, unstable posture) Osteoarthritis Crohn's disease Parkinsonian features Vitamin B12 deficiency Hypothyroidism Major depressive disorder, recurrent episode with mood-congruent psychotic features Family History Family History Father Stomach cancer Mother Dementia Family history of problems with anesthesia: No Surgical History Surgical History S/P small bowel resection History of Problems with Anesthesia: No Social History Social History Household Members: Spouse Housing: House Do you presently have visiting nurse or other home services: No Patient Tobacco Use Status: Never used Tobacco Tobacco use type: Cigarette Advance Directives: No Advance Directives Information Provided: Yes service: Yes Sexual orientation: Straight/Heterosexual Meds Allergies Allergy/AdvReac Type Severity Reaction Status Date / Time codeine Allergy Intermediate Rash Verified 12/02/22 06:13 Home Medications ?Medication ?Instructions ?Recorded ?Confirmed ?Last Taken ?Type carbidopa 25 mg-levodopa 100 mg 1 tab PO TID 05/01/23 05/01/23 Unknown History tablet carbidopa 25 mg-levodopa 100 mg tab PO BID 05/01/23 Unknown History tablet carbidopa 25 mg-levodopa 100 mg tab PO BID 05/01/23 Unknown History tablet carbidopa ER 50 mg-levodopa 200 mg 50 - 200 PO TID 05/01/23 Unknown History tablet,extended release amoxicillin 500 mg capsule 1,000 mg PO BID 12/22/23 12/22/23 Unknown History clarithromycin 500 mg tablet 500 mg PO BID 12/22/23 12/22/23 Unknown History metronidazole 500 mg tablet 500 mg PO BID 12/22/23 12/22/23 Unknown History metronidazole 500 mg tablet 500 mg PO BID 12/22/23 12/22/23 Unknown History Exam Height,Weight and Vital Signs: Height 5 ft 8 in Weight 103.419 kg Last Vital Signs Temp 97.6 F 01/22/24 06:25 Pulse 72 01/22/24 06:25 Resp 19 01/22/24 06:25 BP 145/78 H 01/22/24 06:25 Pulse Ox 97 01/22/24 06:25 O2 Del Method Room Air 01/22/24 06:25 Airway Mallampati Class: II TM Dist: >3cm Neck ROM: Full Heart: rrr Lungs: cta Assessment and Plan Assessment Anesthesia Assessment: Anesthesia Plan Discussed and Chart Reviewed Final Anesthetic Review Family History of Problems with Anesthesia: No History of Problems with Anesthesia: No NPO: Yes ASA Class: III Final Preanesthetic Review: No Changes in Pt Med Stat, Meds/Allgs Chart Reviewed and Consent Obtained/Reviewed Patient Risk: Intermediate Procedure Risk: Intermediate Anesthetic Plan Anesthetic Plan: GA Disposition: Standard PACU
[2024-01-22] MEDS: Lactated Ringers 1,000 ML 50 ML IVCONT ×2 (06:55→08:01)
--- NOTE | 2024-01-22 06:58 | MHC.SHP ---
Pre-Procedural Eval Section A - 24 Hr Update-Section A only Date of Service: 01/22/24 The patient is an INPATIENT: No Changes since office visit: No Cold of Flu in the past 2 weeks, No New Medical Problems, No Changes in Medication and No Patient answered all questions The patient has been examined within 24 hours of the surgical procedure. The History & Physical has been completed within 30 days and I have reviewed it.: Yes Section B - Complete if H&P > 30 days Chief Complaint: Major depressive disorder, recurrent, severe with Details of Present Illness: The patient reported euthymia, he had recently a knee surgery without any complications Relevant Family History (Specify if Yes): No Relevant Social History: None Present Medications: see Short Stay Collaborative assessment Medical History: Significant History History of Previous Operations: No relevant previous surgery Allergies: Allergies Allergy/AdvReac Type Severity Reaction Status Date / Time codeine Allergy Intermediate Rash Verified 12/02/22 06:13 Review of Systems Sugical H&P ROS: Negative: Constitution, Cardiovascular, Respiratory, Neurological, Psychiatric, Hem-Onc, Allergic/Immunologic, Gastrointestinal, Genitourinary, Integumentary, Endocrine and Eyes/Ears/Nose/Throat and Yes, Specify: Musculoskeletal (recent knee surgery) Exam Surgical H&P Exam: Normal: HEENT, Normal: Heart, Normal: Lungs, Normal: Extremities, Normal: Abdomen, Normal: Skin and Normal: Neurological Plan Diagnosis/Plan: Unchanged I have reviewed the history and physical and performed a pertinent physical examination on my patient. No changes have occurred unless specified. Time Spent With Patient Time: Total time managing care of this patient today __30__ minutes.
--- NOTE | 2024-01-22 07:13 | HO.ECTPROC ---
ECT Procedure Note Diagnosis/Treatment Date of Service: 01/22/24 Diagnosis: Major Depressive Disorder Previous ECT Date: 12/22/23 Treatment: Maintenance Interval Clinical Notes: The patient reported euthymia, recent changes on his medications, he will have a knee surgery soon. No side effects with previous ECT. ECT done as usual, no complications, woke up well, used Propofol after ECT as usual. Time: Total time managing care of this patient today __30__ minutes. ECT Settings Device: THYMATRON DGx Electrode Placement: Rt temporal/ Lt frontal Program/Pulse Width: 0.50 Energy Percent: 100 Seizure Duration By EEG (in seconds): 37 By Motor Observation (in seconds): 35 Medications Administration General Anesthetic: Etomidate (14) Muscle Relaxant: Succinylcholine (120) Ancillary Medications Anti-emetics: Zofran - Pre ECT Miscillaneous Medications: Propofol (30 mg post ECT) Airway Management Airway Management: Bag Mask Ventilation Treatment Recommendations No Changes Recommended: No change Pt Tolerated Procedure w/o Issue: Yes
== END 2024-01-22 08:52 | disposition home or self-care (01) ==
PROVIDERS: PCP Student in an Organized Health Care Education/Training Program; Visit Provider Psychiatry & Neurology Psychiatry
PROC: (CPT 90870; principal; 2024-01-22 07:00)
DX: F33.2 Major depressive disorder, recurrent severe without psychotic features (principal); F39 Unspecified mood [affective] disorder; G20.A1 Parkinson's disease without dyskinesia, without mention of fluctuations; K50.90 Crohn's disease, unspecified, without complications; E03.9 Hypothyroidism, unspecified; E53.8 Deficiency of other specified B group vitamins; Z79.899 Other long term (current) drug therapy; Z88.5 Allergy status to narcotic agent
CPT/HCPCS: 90870; J0330; J2405; J2704

== ENCOUNTER → 2024-01-22 05:42 | Outpatient (BNV) | payer OTHER, SELFPAY | PROVIDERS: PCP Student in an Organized Health Care Education/Training Program; Visit Provider Psychiatry & Neurology Psychiatry | DX: F33.3 Major depressive disorder, recurrent, severe with psychotic symptoms (principal) | CPT/HCPCS: 90870 ==

== ENCOUNTER 2024-03-22 12:57 | Outpatient (AMB) | payer OTHER, SELFPAY ==
--- NOTE | 2024-03-22 13:03 | A.OFFVIS_ITS ---
Vital Signs 03/22/24 13:04 Height 5 ft 8.5 in Weight 187 lb 2 oz BMI 28.0 BP 112/62 Blood Pressure Location Rt brachial Position Sitting Respiration 16 Pulse 86 Pulse Source Pulse Oximeter Pulse Oximetry (%) 96 Oxygen Delivery Method Room Air Intake Visit Reasons: ENP: Parkinson's w/o dyskinesia-LVM w/add 12:40 Intake Note: Pt presents to the office for new pt consultation for Parkinson's. Medical Genetics Director Required: No Allergies codeine Allergy (Intermediate, Verified 03/22/24 13:09) Rash Medication List - Last Reconciled 03/22/24 by Mago Ernst MD acetaminophen (Tylenol) 650 mg (2 x 325 mg) PO Q6H PRN acetaminophen 650 mg (2 x 325 mg) PO Q6H PRN 30 days azathioprine 200 mg PO DAILY carbidopa-levodopa 50-200 mg ER 1 tab PO TID cyanocobalamin (vitamin B-12) 100 mcg subcut DAILY folic acid 1 mg PO DAILY 30 days lithium carbonate 300 mg PO BEDTIME oxybutynin chloride ER 10 mg (2 x 5 mg) PO DAILY 30 days venlafaxine ER 300 mg PO DAILY HPI Comments Details: 74y/o male with Parkinsons disease comes for further management. He was diagnosed about 3 years ago when he presented with right hand tremors. He is currently on carbidopa/levodopa CR 50/200 tid. He has depression , bipolar and is on lithium 300mg qd and on ECT.He denies exposure to neuroleptics. He is on Primidone 50mg 2 1/2 tabs qam and 2tabs qhs Memory- not good, he has word finding difficulty SLeep-used to have nightmares and REM behavior disorder Voice is softer - on therapy He denies swallowing issues No sense of smell His mood is OK His handwriting is poor He has trouble with dressing , eating, showering etc.He has constipation He denies hallucinations.He has occaisonal dizzy spells. [facility] Medical History (Updated 03/22/24 @ 13:34 by Mago Ernst MD) Parkinson's disease without dyskinesia, without mention of fluctuations Parkinson's disease (tremor, stiffness, slow motion, unstable posture) Osteoarthritis Crohn's disease Parkinsonian features Vitamin B12 deficiency Hypothyroidism Major depressive disorder, recurrent episode with mood-congruent psychotic features Surgical History S/P small bowel resection Family History Father Stomach cancer Mother Dementia Social History Household Members: Spouse Housing: House Do you presently have visiting nurse or other home services: No Patient Tobacco Use Status: Never used Tobacco Tobacco use type: Cigarette service: Yes Sexual orientation: Straight/Heterosexual Physical Exam Vital Signs: Last Vital Signs Pulse 86 03/22/24 13:04 Resp 16 03/22/24 13:04 BP 112/62 03/22/24 13:04 Pulse Ox 96 03/22/24 13:04 Oxygen Delivery Method Room Air 03/22/24 13:04 BMI result Body Mass Index 28.0 Const General: cooperative and no acute distress Nutritional Appearance: average body habitus Orientation/consciousness: patient oriented x3 HEENT Head: Yes normal to inspection Neck Other: mild antecollis and restricted range of motion Neuro Other: Mild decreased blink and facial expression mild lower lip tremors, tongue tremors , slow tongue movements Voice- severe hypophonia Right UE low amplitude rest tremors Fine Finger movements - severely decreased wanda R>L Alternating hand movements - decreased wanda Hand movements - decreased wanda Foot taps- decreased wanda Mild cog wheel rigidity gait - stooped, mild slowness and decreased arm swing R>L General: patient oriented x3 and no focal motor deficits Cranial nerves: Yes CN's II-XII intact bilaterally, Yes Bilaterally intact EOM present, Yes Normal facial strength present and Yes Midline tongue present Cognition (Neuro): normal cognition Motor exam (neuro): 5/5 motor strength present throughout and Normal motor muscle tone present throughout Deep tendon reflexes (DTR's): Right triceps reflex intensity grade: 1+, Left triceps reflex intensity grade: 1+, Rt Biceps (C5, C6): 1+, Left biceps reflex intensity grade: 1+, Right brachioradialis reflex intensity grade: 1+, Left brachioradialis reflex intensity grade: 1+, Right patellar reflex intensity grade: 1+ and Left patellar reflex intensity grade: 1+ Coordination: [id number] test normal Assessment & Plan Assessment & Plan (1) Parkinson's disease without dyskinesia, without mention of fluctuations: Code(s): G20.A1 - Parkinson's disease without dyskinesia, without mention of fluctuations Category: Medical Plan Increase sinemet CR 50/200 qid PT for Parkinsons continue speech therapy Orders: Orders PT Evaluation and Treatment Today Mago Ernst MD G20.A1 - Parkinson's disease without dyskinesia, without mention of fluctuations Medications: New carbidopa-levodopa 50-200 mg ER 1 tab in am, 1 in afternoon, 1 tab in pm 1 tab PO TID 120 tabs 6RF Mago Ernst MD Changed From azathioprine 100 mg (2 x 50 mg) PO DAILY 30 days 60 tabs 0RF To azathioprine 200 mg PO DAILY Jones Valles MD From venlafaxine ER 150 mg PO DAILY 30 caps 0RF To venlafaxine ER 300 mg PO DAILY Jones Valles MD From lithium carbonate 450 mg (1.5 x 300 mg) PO BEDTIME 30 days 30 tabs 0RF To lithium carbonate 300 mg PO BEDTIME Jones Valles MD Coding Level of Care Code New Pt Level 4 (06499) Complex EM visit Add On G2211 Diagnoses Parkinson's disease without dyskinesia, without mention of fluctuations G20.A1
[2024-03-22 13:04] VITALS: BP 112/62; PULSE 86; RESP 16; O2SAT 96; BMI 28.0
== END 2024-03-22 13:47 | disposition home or self-care (01) ==
PROVIDERS: PCP Student in an Organized Health Care Education/Training Program; Visit Provider Psychiatry & Neurology Neurology
DX: G20.A1 Parkinson's disease without dyskinesia, without mention of fluctuations (principal)
CPT/HCPCS: 99204; G2211

== ENCOUNTER → 2024-03-22 12:57 | Outpatient (BNVA) | payer OTHER, SELFPAY | PROVIDERS: PCP Student in an Organized Health Care Education/Training Program; Visit Provider Psychiatry & Neurology Neurology | DX: G20.A1 Parkinson's disease without dyskinesia, without mention of fluctuations (principal) | CPT/HCPCS: 99202 ==

== ENCOUNTER 2024-03-29 05:35 | Day surgery (SDC) | payer OTHER, SELFPAY ==
[2024-03-29] VITALS (8 sets, daily range): BP systolic 135–159; BP diastolic 70–81; PULSE 69–80; RESP 18–23; TEMP 36.1–36.8; O2SAT 95–99; BMI 30.4
--- NOTE | 2024-03-29 06:45 | HO.ANESPROP2 ---
[facility] Active Problems Active Problems: All Active Problems Parkinson's disease without dyskinesia, without mention of fluctuations (Acute) Major depressive disorder, recurrent episode, in partial remission with catatonia (Acute) Parkinson's disease (tremor, stiffness, slow motion, unstable posture) (Acute) Major depressive disorder, recurrent episode with mood-congruent psychotic features (Acute) Hypothyroidism (Acute) Vitamin B12 deficiency (Acute) Parkinsonian features (Acute) Crohn's disease (Acute) Past Medical History Medical History (Updated 03/22/24 @ 13:34 by Mago Ernst MD) Parkinson's disease without dyskinesia, without mention of fluctuations Parkinson's disease (tremor, stiffness, slow motion, unstable posture) Osteoarthritis Crohn's disease Parkinsonian features Vitamin B12 deficiency Hypothyroidism Major depressive disorder, recurrent episode with mood-congruent psychotic features Family History Family History Father Stomach cancer Mother Dementia Family history of problems with anesthesia: No Surgical History Surgical History S/P small bowel resection History of Problems with Anesthesia: No Social History Social History Household Members: Spouse Housing: House Do you presently have visiting nurse or other home services: No Patient Tobacco Use Status: Never used Tobacco Tobacco use type: Cigarette Advance Directives: No Advance Directives Information Provided: Yes service: Yes Sexual orientation: Straight/Heterosexual Meds Allergies Allergy/AdvReac Type Severity Reaction Status Date / Time codeine Allergy Intermediate Rash Verified 03/22/24 13:09 Home Medications ?Medication ?Instructions ?Recorded ?Confirmed ?Last Taken ?Type azathioprine 50 mg tablet 200 mg PO DAILY 03/22/24 03/22/24 Unknown History cyanocobalamin (vitamin B-12) 100 mcg subcut DAILY 03/22/24 03/22/24 Unknown History 1,000 mcg/mL injection solution lithium carbonate 300 mg tablet 300 mg PO BEDTIME 03/22/24 03/22/24 Unknown History venlafaxine 150 mg 300 mg PO DAILY 03/22/24 03/22/24 Unknown History capsule,extended release 24 hr Exam Height,Weight and Vital Signs: Height 5 ft 8 in Weight 90.718 kg Last Vital Signs Temp 97 F 03/29/24 06:36 Pulse 70 03/29/24 06:36 Resp 18 03/29/24 06:36 BP 145/70 H 03/29/24 06:36 Pulse Ox 96 03/29/24 06:36 O2 Del Method Room Air 03/29/24 06:36 Airway Mallampati Class: II TM Dist: >3cm Neck ROM: Full Heart: rrr Lungs: cta Assessment and Plan Assessment Anesthesia Assessment: Anesthesia Plan Discussed and Chart Reviewed Final Anesthetic Review Family History of Problems with Anesthesia: No History of Problems with Anesthesia: No NPO: Yes ASA Class: III Final Preanesthetic Review: No Changes in Pt Med Stat, Meds/Allgs Chart Reviewed and Consent Obtained/Reviewed Patient Risk: Intermediate Procedure Risk: Intermediate Anesthetic Plan Anesthetic Plan: GA Disposition: Standard PACU
--- NOTE | 2024-03-29 07:06 | MHC.SHP ---
Pre-Procedural Eval Section A - 24 Hr Update-Section A only Date of Service: 03/29/24 Section B - Complete if H&P > 30 days Chief Complaint: Major depressive disorder, recurrent, severe with Details of Present Illness: hx recurrent depression parkinsons disease s/p knee replacement has been inc discouraged depressed Allergies: Allergies Allergy/AdvReac Type Severity Reaction Status Date / Time codeine Allergy Intermediate Rash Verified 03/22/24 13:09 Review of Systems Sugical H&P ROS: Negative: Cardiovascular and Respiratory and Yes, Specify: Neurological (tremor ) and Psychiatric (inc depression hopelessness ) Exam Surgical H&P Exam: Normal: Heart and Normal: Lungs (clear) and Significant Findings: Neurological (tremor) Exam Comment: ck labs and ekg Plan Diagnosis/Plan: Unchanged I have reviewed the history and physical and performed a pertinent physical examination on my patient. No changes have occurred unless specified. Time Spent With Patient Time: Total time managing care of this patient today ____ minutes.
--- NOTE | 2024-03-29 07:07 | ECG_ITS ---
Test Reason : POST OP Blood Pressure : / mmHG Vent. Rate : 073 BPM Atrial Rate : 073 BPM P-R Int : 142 ms QRS Dur : 088 ms QT Int : 370 ms P-R-T Axes : 176 155 150 degrees QTc Int : 407 ms Suspect limb lead reversal, interpretation assumes no reversal Unusual P axis, possible ectopic atrial rhythm Right axis deviation Abnormal ECG When compared with ECG of 22-DEC-2023 08:34, Ectopic atrial rhythm has replaced Sinus rhythm QRS axis Shifted right Referred By: Tee Urbina Electronically Signed By:
--- NOTE | 2024-03-29 07:25 | HO.ECTPROC ---
ECT Procedure Note Diagnosis/Treatment Date of Service: 03/29/24 Diagnosis: Major Depressive Disorder Treatment: Maintenance Interval Clinical Notes: has been inc depressed helpless s/p knee replacemnt recent inc in parkinsons sx Time: Total time managing care of this patient today ____ minutes. ECT Settings Device: THYMATRON DGx Electrode Placement: Rt temporal/ Lt frontal Program/Pulse Width: 0.50 Energy Percent: 100 Seizure Duration By EEG (in seconds): 69 Medications Administration General Anesthetic: Etomidate (14) Muscle Relaxant: Succinylcholine (120) Airway Management Airway Management: Bag Mask Ventilation Treatment Recommendations No Changes Recommended: No change Notes: f/u sooner based on response Pt Tolerated Procedure w/o Issue: Yes
[2024-03-29 08:39] LABS: MANUAL DIFF FLAG NO
[2024-03-29 08:42] LABS: Basophils Percent Auto 0.4 % (0-2); Eosinophils Absolute Auto 0.1 X10*3/uL (0.0-0.4); Eosinophils Percent Auto 1.7 % (0-4); Hematocrit 35.6 % (42.0-52.0); Imm Gran Abs Auto 0.02 X10*3/uL (0.00-0.03); Imm Gran Pct Auto 0.4 % (0.0-0.4); Lymphocytes Absolute Auto 1.2 X10*3/uL (1.2-4.9); Lymphocytes Percent Auto 22.7 % (20-40); Mean Corpuscular HGB Conc 33.7 g/dl (31.0-36.0); Mean Corpuscular Hemoglobin 32.4 pg (27.0-33.0); Mean Corpuscular Volume 96.2 fL (80.0-98.0); Mean Platelet Volume 9.1 fL (9.4-12.4); Monocytes Absolute Auto 0.4 X10*3/uL (0.1-1.2); Monocytes Percent Auto 7.8 % (2-11); Neutrophils Absolute Auto 3.6 x10*3/uL (2.0-8.3); Platelet Count 174 X10*3/uL (160-400); Red Cell Distribution Width 14.5 % (11.0-16.0); White Blood Count 5.3 X10*3/uL (4.8-10.8)
[2024-03-29 09:16] LABS: Alanine Aminotransferase < 5 U/L (0-40); Alkaline Phosphatase 79 U/L (39-117); Anion Gap 10 (12-20); Aspartate Amino Transferase 16 U/L (5-37); Bilirubin Total 0.5 mg/dL (0.0-1.0); Blood Urea Nitrogen 18 mg/dL (9-16); Calcium 9.2 mg/dL (8.4-10.2); Carbon Dioxide 25 mmol/L (22-29); Chloride 107 mmol/L (96-108); Creatinine Clr Calc Pharmacy 65.2; Estimated Glomerular Filt Rate > 60; Glucose Random 118 mg/dL (60-115); Potassium 4.8 mmol/L (3.3-5.1); Sodium 137 mmol/L (135-145); Total Protein 6.4 g/dL (6.5-8.0)
== END 2024-03-29 09:12 | disposition home or self-care (01) ==
PROVIDERS: PCP Student in an Organized Health Care Education/Training Program; Visit Provider Psychiatry & Neurology Psychiatry
PROC: (CPT 90870; principal; 2024-03-29 07:30)
DX: F33.2 Major depressive disorder, recurrent severe without psychotic features (principal); R45.89 Other symptoms and signs involving emotional state; G20.A1 Parkinson's disease without dyskinesia, without mention of fluctuations; Z96.659 Presence of unspecified artificial knee joint
CPT/HCPCS: 36415; 80053; 85025; 90870; 93005; J0330; J2405; J2704

== ENCOUNTER → 2024-03-29 05:35 | Outpatient (BNV) | payer OTHER, SELFPAY | PROVIDERS: PCP Student in an Organized Health Care Education/Training Program; Visit Provider Psychiatry & Neurology Psychiatry | DX: F33.2 Major depressive disorder, recurrent severe without psychotic features (principal) | CPT/HCPCS: 90870 ==

== ENCOUNTER 2024-04-29 10:51 | Day surgery (SDC) | payer OTHER, SELFPAY ==
[2024-04-29] VITALS (7 sets, daily range): BP systolic 139–192; BP diastolic 79–102; PULSE 69–82; RESP 16–20; TEMP 36.6–37.2; O2SAT 96–99; BMI 30.4
--- NOTE | 2024-04-29 13:19 | HO.ANESPROP2 ---
HPI - Anesthesia Eval Consult details Narrative: for ect PMFSH Active Problems Active Problems: All Active Problems Parkinson's disease without dyskinesia, without mention of fluctuations (Acute) Major depressive disorder, recurrent episode, in partial remission with catatonia (Acute) Parkinson's disease (tremor, stiffness, slow motion, unstable posture) (Acute) Major depressive disorder, recurrent episode with mood-congruent psychotic features (Acute) Hypothyroidism (Acute) Vitamin B12 deficiency (Acute) Parkinsonian features (Acute) Crohn's disease (Acute) Past Medical History Medical History Parkinson's disease without dyskinesia, without mention of fluctuations Parkinson's disease (tremor, stiffness, slow motion, unstable posture) Osteoarthritis Crohn's disease Parkinsonian features Vitamin B12 deficiency Hypothyroidism Major depressive disorder, recurrent episode with mood-congruent psychotic features Family History Family History Father Stomach cancer Mother Dementia Family history of problems with anesthesia: No Surgical History Surgical History S/P small bowel resection History of Problems with Anesthesia: No Social History Social History Household Members: Spouse Housing: House Do you presently have visiting nurse or other home services: No Patient Tobacco Use Status: Never used Tobacco Tobacco use type: Cigarette Advance Directives: No Advance Directives Information Provided: Yes service: Yes Sexual orientation: Straight/Heterosexual Meds Allergies Allergy/AdvReac Type Severity Reaction Status Date / Time codeine Allergy Intermediate Rash Verified 03/22/24 13:09 Home Medications ?Medication ?Instructions ?Recorded ?Confirmed ?Last Taken ?Type azathioprine 50 mg tablet 200 mg PO DAILY 03/22/24 03/22/24 Unknown History cyanocobalamin (vitamin B-12) 100 mcg subcut DAILY 03/22/24 03/22/24 Unknown History 1,000 mcg/mL injection solution lithium carbonate 300 mg tablet 300 mg PO BEDTIME 03/22/24 03/22/24 Unknown History venlafaxine 150 mg 300 mg PO DAILY 03/22/24 03/22/24 Unknown History capsule,extended release 24 hr Exam Height,Weight and Vital Signs: Height 5 ft 8 in Weight 90.718 kg Last Vital Signs Temp 98.9 F 04/29/24 12:30 Pulse 73 04/29/24 12:30 Resp 18 04/29/24 12:30 BP 139/79 04/29/24 12:30 Pulse Ox 97 04/29/24 12:30 O2 Del Method Room Air 04/29/24 12:30 Airway Mallampati Class: III TM Dist: >3cm Neck ROM: Limited Heart: rrr Lungs: cta Assessment and Plan Assessment Anesthesia Assessment: Anesthesia Plan Discussed Final Anesthetic Review Family History of Problems with Anesthesia: No History of Problems with Anesthesia: No NPO: Yes ASA Class: III Final Preanesthetic Review: No Changes in Pt Med Stat, Meds/Allgs Chart Reviewed, Consent Obtained/Reviewed and Anes Risks/Benef Reviewed Patient Risk: Intermediate Procedure Risk: Low Anesthetic Plan Anesthetic Plan: GA Disposition: Standard PACU
--- NOTE | 2024-04-29 13:27 | MHC.SHP ---
Pre-Procedural Eval Section A - 24 Hr Update-Section A only Date of Service: 04/29/24 The patient is an INPATIENT: No Changes since office visit: No Cold of Flu in the past 2 weeks, No New Medical Problems, No Changes in Medication and No Patient answered all questions The patient has been examined within 24 hours of the surgical procedure. The History & Physical has been completed within 30 days and I have reviewed it.: Yes Section B - Complete if H&P > 30 days Chief Complaint: depression Details of Present Illness: Stable Relevant Family History (Specify if Yes): No Relevant Social History: None Present Medications: see Short Stay Collaborative assessment Medical History: No relevant PMH Allergies: Allergies Allergy/AdvReac Type Severity Reaction Status Date / Time codeine Allergy Intermediate Rash Verified 03/22/24 13:09 Review of Systems Sugical H&P ROS: Negative: Constitution, Cardiovascular, Respiratory, Neurological, Psychiatric, Hem-Onc, Allergic/Immunologic, Gastrointestinal, Genitourinary, Musculoskeletal, Integumentary, Endocrine and Eyes/Ears/Nose/Throat Exam Surgical H&P Exam: Normal: HEENT, Normal: Heart, Normal: Lungs, Normal: Extremities, Normal: Abdomen, Normal: Skin and Normal: Neurological Plan Diagnosis/Plan: Unchanged I have reviewed the history and physical and performed a pertinent physical examination on my patient. No changes have occurred unless specified. Time Spent With Patient Time: Total time managing care of this patient today __15__ minutes.
--- NOTE | 2024-04-29 13:37 | HO.ECTPROC ---
ECT Procedure Note Diagnosis/Treatment Date of Service: 04/29/24 Diagnosis: Major Depressive Disorder Previous ECT Date: 03/29/24 Treatment: Maintenance Interval Clinical Notes: The patient reported no new symptoms, stable. No side effects with previous ECT. ECT done as usual, no complications. Time: Total time managing care of this patient today _30___ minutes. ECT Settings Device: THYMATRON DGx Electrode Placement: Rt temporal/ Lt frontal Program/Pulse Width: 0.50 Energy Percent: 100 Seizure Duration By EEG (in seconds): 59 By Motor Observation (in seconds): 30 Medications Administration General Anesthetic: Etomidate (14) Muscle Relaxant: Succinylcholine (120) Airway Management Airway Management: Bag Mask Ventilation Treatment Recommendations No Changes Recommended: No change Pt Tolerated Procedure w/o Issue: Yes
[2024-04-29] MEDS: Acetaminophen 325 MG TABLET 650 MG PO (14:40)
== END 2024-04-29 14:59 | disposition home or self-care (01) ==
PROVIDERS: Psychiatry & Neurology Psychiatry; PCP Student in an Organized Health Care Education/Training Program; Visit Provider Psychiatry & Neurology Psychiatry
PROC: (CPT 90870; principal; 2024-04-29 13:00)
DX: F33.2 Major depressive disorder, recurrent severe without psychotic features (principal); G20.A1 Parkinson's disease without dyskinesia, without mention of fluctuations; K50.90 Crohn's disease, unspecified, without complications; E03.9 Hypothyroidism, unspecified; E53.8 Deficiency of other specified B group vitamins; Z79.899 Other long term (current) drug therapy; Z88.5 Allergy status to narcotic agent
CPT/HCPCS: 90870; J0330; J2405

== ENCOUNTER → 2024-04-29 10:51 | Outpatient (BNV) | payer OTHER, SELFPAY | PROVIDERS: PCP Student in an Organized Health Care Education/Training Program; Visit Provider Psychiatry & Neurology Psychiatry | DX: F33.3 Major depressive disorder, recurrent, severe with psychotic symptoms (principal) | CPT/HCPCS: 90870 ==

== ENCOUNTER 2024-06-12 05:33 | Day surgery (SDC) | payer OTHER, SELFPAY ==
[2024-06-12 06:26] VITALS: BMI 31.9
[2024-06-12 06:42] VITALS: BP 132/85; PULSE 86; RESP 16; TEMP 36.5; O2SAT 97
[2024-06-12] MEDS: Lactated Ringers 1,000 ML 100 ML IVCONT (06:52)
--- NOTE | 2024-06-12 07:44 | MHC.SHP ---
Pre-Procedural Eval Section A - 24 Hr Update-Section A only Date of Service: 06/12/24 Section B - Complete if H&P > 30 days Chief Complaint: Major depressive disorder, recurrent, severe with Details of Present Illness: hx parkinsons hx psychotic depression Medical History: Significant History Allergies: Allergies Allergy/AdvReac Type Severity Reaction Status Date / Time codeine Allergy Intermediate Rash Verified 03/22/24 13:09 Review of Systems Sugical H&P ROS: Negative: Psychiatric and Yes, Specify: Neurological (tremor) and Genitourinary (frequency) Exam Surgical H&P Exam: Normal: Heart and Normal: Lungs Exam Comment: alert pleasant good spirits Plan I have reviewed the history and physical and performed a pertinent physical examination on my patient. No changes have occurred unless specified. Time Spent With Patient Time: Total time managing care of this patient today ____ minutes.
[2024-06-12 08:01] VITALS: BP 130/69; PULSE 81; RESP 16; TEMP 36.6; O2SAT 98
--- NOTE | 2024-06-12 08:06 | HO.ECTPROC ---
ECT Procedure Note Diagnosis/Treatment Date of Service: 06/12/24 Diagnosis: Major Depressive Disorder Previous ECT Date: 04/29/24 Treatment: Maintenance Interval Clinical Notes: pt has been doing well stable pleasant future oriented Time: Total time managing care of this patient today ____ minutes. ECT Settings Device: THYMATRON DGx Energy Percent: 100 Seizure Duration By EEG (in seconds): 73 Medications Administration General Anesthetic: Etomidate Muscle Relaxant: Succinylcholine Ancillary Medications Anti-emetics: Zofran - Pre ECT Airway Management Airway Management: Bag Mask Ventilation Treatment Recommendations No Changes Recommended: No change Notes: doing well with maint f/u tx 4 wks Pt Tolerated Procedure w/o Issue: Yes
--- NOTE | 2024-06-12 08:13 | HO.ANESPROP2 ---
[facility] Active Problems Active Problems: All Active Problems Parkinson's disease without dyskinesia, without mention of fluctuations (Acute) Major depressive disorder, recurrent episode, in partial remission with catatonia (Acute) Parkinson's disease (tremor, stiffness, slow motion, unstable posture) (Acute) Major depressive disorder, recurrent episode with mood-congruent psychotic features (Acute) Hypothyroidism (Acute) Vitamin B12 deficiency (Acute) Parkinsonian features (Acute) Crohn's disease (Acute) Past Medical History Medical History Parkinson's disease without dyskinesia, without mention of fluctuations Parkinson's disease (tremor, stiffness, slow motion, unstable posture) Osteoarthritis Crohn's disease Parkinsonian features Vitamin B12 deficiency Hypothyroidism Major depressive disorder, recurrent episode with mood-congruent psychotic features Functional capacity: independent ambulation Family History Family History Father Stomach cancer Mother Dementia Family history of problems with anesthesia: No Surgical History Surgical History S/P small bowel resection History of Problems with Anesthesia: No Social History Social History Household Members: Spouse Housing: House Do you presently have visiting nurse or other home services: No Patient Tobacco Use Status: Never used Tobacco Tobacco use type: Cigarette Advance Directives: No Advance Directives Information Provided: Yes service: Yes Sexual orientation: Straight/Heterosexual Meds Allergies Allergy/AdvReac Type Severity Reaction Status Date / Time codeine Allergy Intermediate Rash Verified 03/22/24 13:09 Active Medications: Current Medications Lactated Ringer's (Lr) 1,000 mls @ 100 mls/hr IVCONT .Q10H KATHRYN Last Admin: 06/12/24 06:52 Dose: 100 mls/hr Home Medications ?Medication ?Instructions ?Recorded ?Confirmed ?Last Taken ?Type azathioprine 50 mg tablet 200 mg PO DAILY 03/22/24 03/22/24 Unknown History cyanocobalamin (vitamin B-12) 100 mcg subcut DAILY 03/22/24 03/22/24 Unknown History 1,000 mcg/mL injection solution lithium carbonate 300 mg tablet 300 mg PO BEDTIME 03/22/24 03/22/24 Unknown History venlafaxine 150 mg 300 mg PO DAILY 03/22/24 03/22/24 Unknown History capsule,extended release 24 hr Exam Height,Weight and Vital Signs: Height 5 ft 8 in Weight 95.254 kg Last Vital Signs Temp 97.9 F 06/12/24 08:01 Pulse 81 06/12/24 08:01 Resp 16 06/12/24 08:01 BP 130/69 06/12/24 08:01 Pulse Ox 98 06/12/24 08:01 O2 Del Method Room Air 06/12/24 08:01 Airway Mallampati Class: III TM Dist: >3cm Neck ROM: Full Heart: RRR Lungs: CTA Assessment and Plan Assessment Anesthesia Assessment: Anesthesia Plan Discussed and Chart Reviewed Final Anesthetic Review Family History of Problems with Anesthesia: No History of Problems with Anesthesia: No NPO: Yes ASA Class: III Final Preanesthetic Review: Meds/Allgs Chart Reviewed, Consent Obtained/Reviewed and Anes Risks/Benef Reviewed Patient Risk: Intermediate Procedure Risk: Low Anesthetic Plan Anesthetic Plan: GA Disposition: Standard PACU
--- NOTE | 2024-06-12 08:15 | HO.POSTANES ---
Post Anesthesia Evaluation Post Anesthesia Evaluation Date of Service: 06/12/24 Vital Signs: Vital Signs Temp Pulse Resp BP Pulse Ox O2 Del Method 06/12/24 08:01 97.9 F 81 16 130/69 98 Room Air 06/12/24 06:42 97.7 F 86 16 132/85 97 Room Air Anesthesia: General Mental Status: Awake Pain Control: Satisfactory Nausea/Vomiting: None Hydration: Adequate Anesthesia-Related Issues: No Anes. Related Issues
[2024-06-12 08:17] VITALS: BP 139/76; PULSE 87; RESP 16; TEMP 36.8; O2SAT 95
[2024-06-12 08:32] VITALS: BP 135/84; PULSE 83; RESP 16; TEMP 36.8; O2SAT 96
[2024-06-12 08:47] VITALS: BP 135/76; PULSE 87; RESP 16; TEMP 36.8; O2SAT 96
== END 2024-06-12 09:32 | disposition home or self-care (01) ==
PROVIDERS: PCP Student in an Organized Health Care Education/Training Program; Visit Provider Psychiatry & Neurology Psychiatry
PROC: (CPT 90870; principal; 2024-06-12 07:30)
DX: F33.2 Major depressive disorder, recurrent severe without psychotic features (principal); G20.A1 Parkinson's disease without dyskinesia, without mention of fluctuations; K50.90 Crohn's disease, unspecified, without complications; E03.9 Hypothyroidism, unspecified; E53.8 Deficiency of other specified B group vitamins; Z79.899 Other long term (current) drug therapy; Z88.5 Allergy status to narcotic agent
CPT/HCPCS: 90870; J0330; J2405

== ENCOUNTER → 2024-06-12 05:33 | Outpatient (BNV) | payer OTHER, SELFPAY | PROVIDERS: PCP Student in an Organized Health Care Education/Training Program; Visit Provider Psychiatry & Neurology Psychiatry | DX: F33.3 Major depressive disorder, recurrent, severe with psychotic symptoms (principal) | CPT/HCPCS: 90870 ==

== ENCOUNTER 2024-07-12 05:41 | Day surgery (SDC) | payer OTHER, SELFPAY ==
[2024-07-12] VITALS (9 sets, daily range): BP systolic 149–173; BP diastolic 80–93; PULSE 69–97; RESP 16; TEMP 36.5–37.1; O2SAT 94–99; BMI 32.0
--- NOTE | 2024-07-12 07:16 | MHC.SHP ---
Pre-Procedural Eval Section A - 24 Hr Update-Section A only Date of Service: 07/12/24 Section B - Complete if H&P > 30 days Chief Complaint: depression Details of Present Illness: hx parkinsons hx psychotic depression no new medical concerns Relevant Social History: None Present Medications: see Short Stay Collaborative assessment Medical History: Significant History Allergies: Allergies Allergy/AdvReac Type Severity Reaction Status Date / Time codeine Allergy Intermediate Rash Verified 03/22/24 13:09 Review of Systems Sugical H&P ROS: Negative: Psychiatric (stable good mood ) and Yes, Specify: Neurological (tremor) and Genitourinary (frequency) Exam Surgical H&P Exam: Normal: Heart and Normal: Lungs Exam Comment: alert pleasant good spirits Plan I have reviewed the history and physical and performed a pertinent physical examination on my patient. No changes have occurred unless specified. Time Spent With Patient Time: Total time managing care of this patient today ____ minutes.
[2024-07-12] MEDS: Lactated Ringers 1,000 ML 80 ML IVCONT (07:28)
--- NOTE | 2024-07-12 07:57 | HO.ECTPROC ---
ECT Procedure Note Diagnosis/Treatment Date of Service: 07/14/24 Diagnosis: Major Depressive Disorder Previous ECT Date: 06/12/24 Treatment: Maintenance Interval Clinical Notes: pt pleasant future oriented not psychotic feels much more stable with maint ect have tried to wean Time: Total time managing care of this patient today ____ minutes. ECT Settings Device: THYMATRON DGx Electrode Placement: Rt temporal/ Lt frontal Program/Pulse Width: 0.50 Energy Percent: 80 Seizure Duration By EEG (in seconds): 84 Medications Administration General Anesthetic: Etomidate Muscle Relaxant: Succinylcholine Ancillary Medications Anti-emetics: Zofran - Pre ECT Airway Management Airway Management: Bag Mask Ventilation Treatment Recommendations Energy Percent: 50 Notes: decrease energy f/u 4 wks Pt Tolerated Procedure w/o Issue: Yes
--- NOTE | 2024-07-12 08:26 | HO.ANESPROP2 ---
HPI - Anesthesia Eval Consult details Narrative: 74 yo male patient for ECT PMFSH Active Problems Active Problems: All Active Problems Parkinson's disease without dyskinesia, without mention of fluctuations (Acute) Major depressive disorder, recurrent episode, in partial remission with catatonia (Acute) Parkinson's disease (tremor, stiffness, slow motion, unstable posture) (Acute) Major depressive disorder, recurrent episode with mood-congruent psychotic features (Acute) Hypothyroidism (Acute) Vitamin B12 deficiency (Acute) Parkinsonian features (Acute) Crohn's disease (Acute) Past Medical History Medical History Parkinson's disease without dyskinesia, without mention of fluctuations Parkinson's disease (tremor, stiffness, slow motion, unstable posture) Osteoarthritis Crohn's disease Parkinsonian features Vitamin B12 deficiency Hypothyroidism Major depressive disorder, recurrent episode with mood-congruent psychotic features Family History Family History Father Stomach cancer Mother Dementia Family history of problems with anesthesia: No Surgical History Surgical History S/P small bowel resection History of Problems with Anesthesia: No Social History Social History Household Members: Spouse Housing: House Do you presently have visiting nurse or other home services: No Patient Tobacco Use Status: Never used Tobacco Tobacco use type: Cigarette Advance Directives: No Advance Directives Information Provided: Yes service: Yes Sexual orientation: Straight/Heterosexual Meds Allergies Allergy/AdvReac Type Severity Reaction Status Date / Time codeine Allergy Intermediate Rash Verified 03/22/24 13:09 Active Medications: Current Medications Lactated Ringer's (Lr) 1,000 mls @ 80 mls/hr IVCONT .[id number] KATHRYN Last Admin: 07/12/24 07:28 Dose: 80 mls/hr Home Medications ?Medication ?Instructions ?Recorded ?Confirmed ?Last Taken ?Type azathioprine 50 mg tablet 200 mg PO DAILY 03/22/24 03/22/24 Unknown History cyanocobalamin (vitamin B-12) 100 mcg subcut DAILY 03/22/24 03/22/24 Unknown History 1,000 mcg/mL injection solution lithium carbonate 300 mg tablet 300 mg PO BEDTIME 03/22/24 03/22/24 Unknown History venlafaxine 150 mg 300 mg PO DAILY 03/22/24 03/22/24 Unknown History capsule,extended release 24 hr Exam Height,Weight and Vital Signs: Height 5 ft 8.5 in Weight 97 kg Last Vital Signs Temp 98.3 F 07/12/24 08:10 Pulse 87 07/12/24 08:15 Resp 16 07/12/24 08:15 BP 158/84 H 07/12/24 08:15 Pulse Ox 94 07/12/24 08:15 O2 Del Method Nasal Cannula with Capnography 07/12/24 08:15 O2 Flow Rate 3 07/12/24 08:15 Airway Mallampati Class: III TM Dist: >3cm Neck ROM: Full Loose/Missing/Broken Teeth: No Heart: RRR Lungs: CTAB Assessment and Plan Assessment Anesthesia Assessment: Anesthesia Plan Discussed and Chart Reviewed Final Anesthetic Review Family History of Problems with Anesthesia: No History of Problems with Anesthesia: No NPO: Yes ASA Class: III Final Preanesthetic Review: No Changes in Pt Med Stat, Meds/Allgs Chart Reviewed, Consent Obtained/Reviewed and Anes Risks/Benef Reviewed Patient Risk: Intermediate Procedure Risk: Intermediate Anesthetic Plan Anesthetic Plan: GA Disposition: Standard PACU
[2024-07-12] MEDS: Acetaminophen 325 MG TABLET 650 MG PO (09:16)
== END 2024-07-12 09:50 | disposition home or self-care (01) ==
PROVIDERS: PCP Student in an Organized Health Care Education/Training Program; Visit Provider Psychiatry & Neurology Psychiatry
PROC: (CPT 90870; principal; 2024-07-12 07:00)
DX: F33.2 Major depressive disorder, recurrent severe without psychotic features (principal); G20.A1 Parkinson's disease without dyskinesia, without mention of fluctuations; K50.90 Crohn's disease, unspecified, without complications; E53.8 Deficiency of other specified B group vitamins; E03.9 Hypothyroidism, unspecified; Z79.899 Other long term (current) drug therapy; Z88.5 Allergy status to narcotic agent
CPT/HCPCS: 90870; J0330; J2405

== ENCOUNTER → 2024-07-12 05:41 | Outpatient (BNV) | payer OTHER, SELFPAY | PROVIDERS: PCP Student in an Organized Health Care Education/Training Program; Visit Provider Psychiatry & Neurology Psychiatry | DX: F33.3 Major depressive disorder, recurrent, severe with psychotic symptoms (principal) | CPT/HCPCS: 90870 ==

== ENCOUNTER 2024-08-09 06:53 | Day surgery (SDC) | payer OTHER, SELFPAY ==
--- NOTE | 2024-08-09 07:03 | MHC.SHP ---
Pre-Procedural Eval Section A - 24 Hr Update-Section A only Date of Service: 08/09/24 The patient is an INPATIENT: No Changes since office visit: Yes Cold of Flu in the past 2 weeks, Yes New Medical Problems, Yes Changes in Medication and Yes Patient answered all questions The patient has been examined within 24 hours of the surgical procedure. The History & Physical has been completed within 30 days and I have reviewed it.: No Section B - Complete if H&P > 30 days Chief Complaint: depression Allergies: Allergies Allergy/AdvReac Type Severity Reaction Status Date / Time codeine Allergy Intermediate Rash Verified 03/22/24 13:09 Plan I have reviewed the history and physical and performed a pertinent physical examination on my patient. No changes have occurred unless specified. Time Spent With Patient Time: Total time managing care of this patient today ____ minutes.
--- NOTE | 2024-08-09 07:05 | HO.ANESPROP2 ---
[facility] Active Problems Active Problems: All Active Problems Parkinson's disease without dyskinesia, without mention of fluctuations (Acute) Major depressive disorder, recurrent episode, in partial remission with catatonia (Acute) Parkinson's disease (tremor, stiffness, slow motion, unstable posture) (Acute) Major depressive disorder, recurrent episode with mood-congruent psychotic features (Acute) Hypothyroidism (Acute) Vitamin B12 deficiency (Acute) Parkinsonian features (Acute) Crohn's disease (Acute) Past Medical History Medical History Parkinson's disease without dyskinesia, without mention of fluctuations Parkinson's disease (tremor, stiffness, slow motion, unstable posture) Osteoarthritis Crohn's disease Parkinsonian features Vitamin B12 deficiency Hypothyroidism Major depressive disorder, recurrent episode with mood-congruent psychotic features Family History Family History Father Stomach cancer Mother Dementia Family history of problems with anesthesia: No Surgical History Surgical History S/P small bowel resection History of Problems with Anesthesia: No Social History Social History Household Members: Spouse Housing: House Do you presently have visiting nurse or other home services: No Patient Tobacco Use Status: Never used Tobacco Tobacco use type: Cigarette Advance Directives: No Advance Directives Information Provided: Yes service: Yes Sexual orientation: Straight/Heterosexual Meds Allergies Allergy/AdvReac Type Severity Reaction Status Date / Time codeine Allergy Intermediate Rash Verified 03/22/24 13:09 Home Medications ?Medication ?Instructions ?Recorded ?Confirmed ?Last Taken ?Type azathioprine 50 mg tablet 200 mg PO DAILY 03/22/24 03/22/24 Unknown History cyanocobalamin (vitamin B-12) 100 mcg subcut DAILY 03/22/24 03/22/24 Unknown History 1,000 mcg/mL injection solution lithium carbonate 300 mg tablet 300 mg PO BEDTIME 03/22/24 03/22/24 Unknown History venlafaxine 150 mg 300 mg PO DAILY 03/22/24 03/22/24 Unknown History capsule,extended release 24 hr Exam Airway Mallampati Class: II TM Dist: >3cm Neck ROM: Full Heart: rrr Lungs: cta Assessment and Plan Assessment Anesthesia Assessment: Anesthesia Plan Discussed and Chart Reviewed Final Anesthetic Review Family History of Problems with Anesthesia: No History of Problems with Anesthesia: No NPO: Yes ASA Class: III Final Preanesthetic Review: No Changes in Pt Med Stat, Meds/Allgs Chart Reviewed and Consent Obtained/Reviewed Patient Risk: Intermediate Procedure Risk: Intermediate Anesthetic Plan Anesthetic Plan: GA Disposition: Standard PACU
[2024-08-09 07:08] VITALS: BMI 33.0
[2024-08-09] MEDS: Lactated Ringers 1,000 ML 50 ML IVCONT (07:14)
--- NOTE | 2024-08-09 07:54 | HO.ECTPROC ---
ECT Procedure Note Diagnosis/Treatment Date of Service: 08/09/24 Diagnosis: Major Depressive Disorder Previous ECT Date: 07/12/24 Treatment: Maintenance Interval Clinical Notes: The patient reports euthymia, no changes on treatment, no side effects with previous ECT. ECT done as usual, no complications, woke up well. Time: Total time managing care of this patient today ____ minutes. ECT Settings Device: THYMATRON DGx Electrode Placement: Rt temporal/ Lt frontal Program/Pulse Width: 0.50 Energy Percent: 100 Seizure Duration By EEG (in seconds): 63 By Motor Observation (in seconds): 42 Medications Administration General Anesthetic: Etomidate (14) Muscle Relaxant: Succinylcholine (120) Ancillary Medications Anti-emetics: Zofran - Pre ECT Airway Management Airway Management: Bag Mask Ventilation Treatment Recommendations No Changes Recommended: No change Pt Tolerated Procedure w/o Issue: Yes
[2024-08-09 08:00] VITALS: BP 157/77; PULSE 75; RESP 18; TEMP 37.1; O2SAT 96
[2024-08-09 08:05] VITALS: BP 142/77; PULSE 91; RESP 16; O2SAT 96
[2024-08-09 08:10] VITALS: BP 148/83; PULSE 88; RESP 16; O2SAT 97
[2024-08-09 08:15] VITALS: BP 140/81; PULSE 87; RESP 16; O2SAT 98
[2024-08-09 08:30] VITALS: BP 146/82; PULSE 80; RESP 16; TEMP 37.1; O2SAT 96
[2024-08-09 08:45] VITALS: BP 138/77; PULSE 78; RESP 16; TEMP 37.1; O2SAT 96
== END 2024-08-09 08:45 | disposition home or self-care (01) ==
PROVIDERS: PCP Student in an Organized Health Care Education/Training Program; Visit Provider Psychiatry & Neurology Psychiatry
PROC: (CPT 90870; principal; 2024-08-09 08:30)
DX: F33.2 Major depressive disorder, recurrent severe without psychotic features (principal); G20.A1 Parkinson's disease without dyskinesia, without mention of fluctuations; E53.8 Deficiency of other specified B group vitamins; K50.90 Crohn's disease, unspecified, without complications; E03.9 Hypothyroidism, unspecified; Z79.899 Other long term (current) drug therapy; Z88.5 Allergy status to narcotic agent
CPT/HCPCS: 90870; J0330; J2405

== ENCOUNTER → 2024-08-09 06:53 | Outpatient (BNV) | payer OTHER, SELFPAY | PROVIDERS: PCP Student in an Organized Health Care Education/Training Program; Visit Provider Psychiatry & Neurology Psychiatry | DX: F33.3 Major depressive disorder, recurrent, severe with psychotic symptoms (principal) | CPT/HCPCS: 90870 ==

== ENCOUNTER 2024-09-18 05:45 | Day surgery (SDC) | payer OTHER, SELFPAY ==
[2024-09-18 06:45] VITALS: BMI 32.8
[2024-09-18 06:46] VITALS: BP 136/77; PULSE 78; RESP 18; TEMP 36.6; O2SAT 97
--- NOTE | 2024-09-18 07:26 | MHC.SHP ---
Pre-Procedural Eval Section A - 24 Hr Update-Section A only Date of Service: 09/18/24 The patient is an INPATIENT: No The patient has been examined within 24 hours of the surgical procedure. The History & Physical has been completed within 30 days and I have reviewed it.: No Section B - Complete if H&P > 30 days Chief Complaint: Major depressive disorder, recurrent, severe with Details of Present Illness: recurrent depression doingok Allergies: Allergies Allergy/AdvReac Type Severity Reaction Status Date / Time codeine Allergy Intermediate Rash Verified 03/22/24 13:09 Review of Systems Sugical H&P ROS: Negative: Constitution, Cardiovascular, Respiratory and Psychiatric (feels ok) and Yes, Specify: Neurological (mild parkinsons sx ) Exam Surgical H&P Exam: Normal: Heart (rr) and Normal: Lungs (clear) and Significant Findings: Neurological (mild rigidity) Plan Diagnosis/Plan: Unchanged I have reviewed the history and physical and performed a pertinent physical examination on my patient. No changes have occurred unless specified. Time Spent With Patient Time: Total time managing care of this patient today ____ minutes.
--- NOTE | 2024-09-18 07:30 | HO.ECTPROC ---
ECT Procedure Note Diagnosis/Treatment Date of Service: 09/18/24 Diagnosis: Major Depressive Disorder Previous ECT Date: 08/09/24 Treatment: Maintenance Interval Clinical Notes: The patient reports euthymia, no changes on treatment, no side effects with previous ECT.Feeling good to have bladder surgery. [facility] sees [facility] no change in meds . preop consent obtained ECT done as usual, no complications, woke up well. Time: Total time managing care of this patient today _30___ minutes. ECT Settings Device: THYMATRON DGx Electrode Placement: Rt temporal/ Lt frontal Program/Pulse Width: 0.50 Energy Percent: 100 Seizure Duration By EEG (in seconds): 55 Medications Administration General Anesthetic: Etomidate (14) Muscle Relaxant: Succinylcholine (120) Ancillary Medications Anti-emetics: Zofran - Pre ECT Airway Management Airway Management: Bag Mask Ventilation Treatment Recommendations No Changes Recommended: No change Pt Tolerated Procedure w/o Issue: Yes
--- NOTE | 2024-09-18 07:33 | HO.ANESPROP2 ---
HPI - Anesthesia Eval Consult details Narrative: 74 yo male patient for ECT PMFSH Active Problems Active Problems: All Active Problems Parkinson's disease without dyskinesia, without mention of fluctuations (Acute) Major depressive disorder, recurrent episode, in partial remission with catatonia (Acute) Parkinson's disease (tremor, stiffness, slow motion, unstable posture) (Acute) Major depressive disorder, recurrent episode with mood-congruent psychotic features (Acute) Hypothyroidism (Acute) Vitamin B12 deficiency (Acute) Parkinsonian features (Acute) Crohn's disease (Acute) Past Medical History Medical History Parkinson's disease without dyskinesia, without mention of fluctuations Parkinson's disease (tremor, stiffness, slow motion, unstable posture) Osteoarthritis Crohn's disease Parkinsonian features Vitamin B12 deficiency Hypothyroidism Major depressive disorder, recurrent episode with mood-congruent psychotic features Family History Family History Father Stomach cancer Mother Dementia Family history of problems with anesthesia: No Surgical History Surgical History S/P small bowel resection History of Problems with Anesthesia: No Social History Social History Household Members: Spouse Housing: House Do you presently have visiting nurse or other home services: No Patient Tobacco Use Status: Never used Tobacco Tobacco use type: Cigarette service: Yes Sexual orientation: Straight/Heterosexual Meds Allergies Allergy/AdvReac Type Severity Reaction Status Date / Time codeine Allergy Intermediate Rash Verified 03/22/24 13:09 Home Medications ?Medication ?Instructions ?Recorded ?Confirmed ?Last Taken ?Type azathioprine 50 mg tablet 200 mg PO DAILY 03/22/24 03/22/24 Unknown History cyanocobalamin (vitamin B-12) 100 mcg subcut DAILY 03/22/24 03/22/24 Unknown History 1,000 mcg/mL injection solution lithium carbonate 300 mg tablet 300 mg PO BEDTIME 03/22/24 03/22/24 Unknown History venlafaxine 150 mg 300 mg PO DAILY 03/22/24 03/22/24 Unknown History capsule,extended release 24 hr Exam Height,Weight and Vital Signs: Height 5 ft 8 in Weight 97.976 kg Last Vital Signs Temp 97.8 F 09/18/24 06:46 Pulse 78 09/18/24 06:46 Resp 18 09/18/24 06:46 BP 136/77 09/18/24 06:46 Pulse Ox 97 09/18/24 06:46 O2 Del Method Room Air 09/18/24 06:46 Airway Mallampati Class: III TM Dist: >3cm Neck ROM: Full Loose/Missing/Broken Teeth: No Heart: RRR Lungs: CTAB Assessment and Plan Assessment Anesthesia Assessment: Anesthesia Plan Discussed and Chart Reviewed Final Anesthetic Review Family History of Problems with Anesthesia: No History of Problems with Anesthesia: No NPO: Yes ASA Class: III Final Preanesthetic Review: No Changes in Pt Med Stat, Meds/Allgs Chart Reviewed, Consent Obtained/Reviewed and Anes Risks/Benef Reviewed Patient Risk: Intermediate Procedure Risk: Intermediate Assessment/Block/Sedation in SS: Assess/Block/Sedation-SS Anesthetic Plan Anesthetic Plan: GA Disposition: Standard PACU
[2024-09-18 07:50] VITALS: BP 145/79; PULSE 81; RESP 24; TEMP 36.9; O2SAT 92
[2024-09-18 07:55] VITALS: BP 142/79; PULSE 86; RESP 24; O2SAT 93
[2024-09-18 08:00] VITALS: BP 132/81; PULSE 87; RESP 22; O2SAT 93
[2024-09-18 08:05] VITALS: BP 139/79; PULSE 84; RESP 23; O2SAT 93
[2024-09-18 08:16] LABS: MANUAL DIFF FLAG NO
[2024-09-18 08:18] LABS: Basophils Percent Auto 0.8 % (0-2); Eosinophils Percent Auto 1.1 % (0-4); Hematocrit 37.7 % (42.0-52.0); Hemoglobin 12.6 g/dl (14.0-18.0); Imm Gran Abs Auto 0.04 X10*3/uL (0.00-0.03); Imm Gran Pct Auto 1.1 % (0.0-0.4); Lymphocytes Absolute Auto 0.9 X10*3/uL (1.2-4.9); Lymphocytes Percent Auto 24.4 % (20-40); Mean Corpuscular HGB Conc 33.4 g/dl (31.0-36.0); Mean Corpuscular Hemoglobin 32.4 pg (27.0-33.0); Mean Corpuscular Volume 96.9 fL (80.0-98.0); Mean Platelet Volume 9.5 fL (9.4-12.4); Monocytes Absolute Auto 0.3 X10*3/uL (0.1-1.2); Monocytes Percent Auto 9.3 % (2-11); Neutrophils Absolute Auto 2.3 x10*3/uL (2.0-8.3); Neutrophils Percent Auto 63.3 % (45-73); Platelet Count 154 X10*3/uL (160-400); Red Blood Count 3.89 X10*6/uL (4.60-5.80); Red Cell Distribution Width 13.2 % (11.0-16.0); White Blood Count 3.6 X10*3/uL (4.8-10.8)
[2024-09-18 08:20] VITALS: BP 113/78; PULSE 82; RESP 20; TEMP 36.8; O2SAT 93
--- NOTE | 2024-09-18 08:31 | ECG_ITS ---
Test Reason : post op Blood Pressure : */* mmHG Vent. Rate : 77 BPM Atrial Rate : 77 BPM P-R Int : 150 ms QRS Dur : 88 ms QT Int : 368 ms P-R-T Axes : 4 24 39 degrees QTcB Int : 416 ms Normal sinus rhythm Normal ECG When compared with ECG of 29-Mar-2024 08:29, No significant change was found Referred By: Tee Urbina Electronically Signed By: JAMES MOHAN
== END 2024-09-18 08:55 | disposition home or self-care (01) ==
PROVIDERS: PCP Student in an Organized Health Care Education/Training Program; Visit Provider Psychiatry & Neurology Psychiatry
PROC: (CPT 90870; principal; 2024-09-18 07:00)
DX: F33.2 Major depressive disorder, recurrent severe without psychotic features (principal); G20.A1 Parkinson's disease without dyskinesia, without mention of fluctuations; E53.8 Deficiency of other specified B group vitamins; K50.90 Crohn's disease, unspecified, without complications; E03.9 Hypothyroidism, unspecified; Z79.899 Other long term (current) drug therapy; Z88.5 Allergy status to narcotic agent
CPT/HCPCS: 36415; 85025; 90870; 93005; J0330; J2405

== ENCOUNTER → 2024-09-18 05:45 | Outpatient (BNV) | payer OTHER, SELFPAY | PROVIDERS: PCP Student in an Organized Health Care Education/Training Program; Visit Provider Psychiatry & Neurology Psychiatry | DX: F33.3 Major depressive disorder, recurrent, severe with psychotic symptoms (principal) | CPT/HCPCS: 90870 ==

== ENCOUNTER → 2024-09-18 08:31 | Outpatient (BNV) | payer OTHER, SELFPAY | PROVIDERS: PCP Student in an Organized Health Care Education/Training Program; Visit Provider Internal Medicine | DX: Z48.812 Encounter for surgical aftercare following surgery on the circulatory system (principal) | CPT/HCPCS: 93010 ==

== ENCOUNTER 2024-10-23 05:41 | Day surgery (SDC) | payer OTHER, SELFPAY ==
--- OUTSIDE RECORDS SUMMARY | 2024-09-18 10:37 | XMS_ITS | Data Portability ---
Author Organization [place] - [facility], [facility] Address [address] [place] [address] Care Team Providers Care Key Maker Name Role Phone JACQUELINE BENSONA Primary Care Provider [phone] Assessment Encounter Date Assessment Date Assessment LastModified by Organization Details LastModified Time 03/11/2024 03/11/2024 A: Pt with a decrease in pain level coming into therapy. Continues to utilize his walker for community ambulation. Pt completed all ther ex's without challenges. P: Continue with POC, progress as tolerated [email or web address] Not available 03/11/2024 12:58:52 03/13/2024 03/13/2024 A: Pt completed program without challenges. Moderate fatigue by the end of the session. P: Continue with POC, progress as tolerated [email or web address] Not available 03/13/2024 13:33:17 03/20/2024 03/20/2024 A: Pt completed program without challenges. Fatigued with functional progressions this session, Pt with some retropulsion with STS exercise, requiring cuing for WS forward. Able to perform 4 step ups, requiring close supervision with new exercises d/t slight instability, no overt LOB. Difficulty observed c sit <>supine transfers. P: Continue with POC, progress as tolerated [email or web address] Not available 03/20/2024 18:48:13 03/28/2024 03/28/2024 A: Pt completed program without challenges. Fatigued with functional progressions this session, Able to increase resistance on shuttle and increase repetitions with STS-- some retropulsion noted with STS. Fatigued appropriately throughout, steady gait on level surface with RW. P: Continue with POC, progress balance and functional training as appropriate. [email or web address] Not available 03/28/2024 12:54:12 05/16/2024 05/16/2024 /PROBLEM: Status post Left total knee arthroplasty performed on 01/26/24 HPI: Patient returns today for follow-up of their total knee arthroplasty. They report they have returned to most activities of daily living. The patient has no specific concerns today in the office. They have completed outpatient physical therapy. The patient's notes that he has a pretty significant communication issues on multiple occasions with [facility]. She is disappointed in this. However, she states she is very satisfied with the outcome of her surgery. Patient's recovery has been delayed by his Parkinson's. Past family, medical, social history and review of systems has been reviewed, updated and is located in the patient? s chart. EXAM: The patient ambulates with a non-antalgic gait. The surgical wound is well-healed. There is no erythema, redness, or signs of infection. Left knee range of motion 0-130? ? ?. There is no significant sub-patellar crepitus. There is expected postoperative swelling but no significant effusion. The knee is stable to varus and valgus loading at 0 and 90? ? ? without evidence of significant instability. IMAGING: Previously obtained X-rays reviewed in the office today on [facility] PACS: Weightbearing AP of both knees, lateral of the left knee, and sunrise view of both knees demonstrate; Show appropriate position of the patient's left total knee arthroplasty. Overall limb alignment is neutral. Implant position is satisfactory. Patellar tracking is midline. Bone implant interfaces are intact and no evidence of fracture or osteolysis IMPRESSION: Status post Left total knee arthroplasty PLAN: At this point, the patient is doing extremely well following their total knee arthroplasty. I encouraged them to continue a home exercise and walking program. We discussed activity modification, dental prophylaxis, and the importance of long-term follow-up. I encouraged them to return to the office periodically for routine follow-up; sooner if any issues arise. I attempted to answer all of their questions today in the office. The patient did have some fairly significant issues with hospital communications including from the recovery room and from care management. We did discuss this in the office today. Encouraged the patient to keep walking. We discussed safety on stairs. Patient is currently undergoing physical therapy for his Parkinson's. I think this is very reasonable. [facility] speech recognition guardian family member software was used to create portions of this document. An attempt at proofreading has been made to minimize errors. Please call for corrections. [email or web address] Not available 05/16/2024 15:25:58 Plan of Treatment Reminders Order Date Submit Date Provider Last Modified By Organization Details Last Modified Time Details Appointments None record ed. Lab None record ed. Referral None record ed. Procedures None record ed. Surgeries None record ed. Imaging None record ed. Medication Orders None record ed. Patient TargetsNo targets recorded. Patient InstructionsNo instructions recorded. Reason for Referral None Reported. Results Created Date Observation Date Name Description Value Unit Range Abnormal Flag Note LastModifiedBy Organization Detail LastModifiedTime 02/20/20 24 02/20/2024 XR, knee, 3 view http:/ [email or web address] ?Encry pted=s hAaTro YD8dLq bEUv6g %2BXZw aYqtaq 0bqfl% 2Fg9IQ a4ajBk vP9nXo QUaueC m3YtLR FvZlgJ JJ8mAn HZtai3 8h9325 AC0Koa nyFWKX eUC8mr 84%3D INTERFACE [facility] [address] [facility] [address], [place], [address], 02/20/2024 14:40:59 02/20/20 24 02/20/2024 XR, knee, 3 view http:/ [email or web address] ?Encry pted=s hAaTro YD8dLq bEUv6g %2BXZw aYqtaq 0bqfl% 2Fg9IQ a4ajBk vP9nXo QUaueC m3YtLR FvZlgJ JJ8mAn HZtai3 1o9543 AC0Koa nyFWKX eUC8mr 84%3D INTERFACE [facility] [address], [place], [address], 02/20/2024 14:41:01 Result Notes None recorded. Problems Name Problem SNOMED Code Status Onset Date Resolution Date Notes Provider Name and Address Organization Details Recorded Time No complaints 160178710 Active Status : 'I'; Not Available [facility] 4 09:12:47 Bilateral osteoarthr itis of knees 3295825276476 07 Active 2023 Jorge Magallanes MD [address], [place], [address] , [facility] 4 15:40:33 Osteoarthr itis of left knee joint 9661215662117 09 Active 2023 Jorge Magallanes MD [address], [place], [address] , [facility] 4 07:22:20 Problem Notes None recorded. Procedures Surgical History Date Name Laterality Status Provider Name and Address Organization Details Recorded Time 4 23119 Therapeutic Exercise (1:1) completed Dayna Yadav DPT [address], [place], [address], [facility] 03/28/2024 12:25:16 4 92162: Hot or Cold Pack completed Dayna Yadav DPT [address], [place], [address], [facility] 03/28/2024 11:43:50 4 49070 Therapeutic Exercise (1:1) completed Dayna Yadav DPT [address], [place], [address], [facility] 03/20/2024 18:43:16 4 92367: Hot or Cold Pack completed Dayna Yadav DPT [address], [place], [address], [facility] 03/20/2024 18:43:07 4 73326 Therapeutic Exercise (1:1) completed Gray Lamb PTA [address], [place], [address], [facility] 03/12/2024 14:56:58 4 22533: Hot or Cold Pack completed Gray Lamb PTA [address], [place], [address], [facility] 03/12/2024 14:56:58 4 42104 Therapeutic Exercise (1:1) completed Gray Lamb PTA [address], [place], [address], [facility] 03/08/2024 10:19:41 4 34728: Hot or Cold Pack completed Gray Lamb [employer] [address], [place], [address], [facility] 03/11/2024 12:50:12 4 01934 Therapeutic Exercise (1:1) completed Dedrick Iraheta PTA [address], [place], [address], [facility] 03/06/2024 09:09:40 4 54481: Hot or Cold Pack completed Dedrick Iraheta PTA [address], [place], [address], [facility] 03/06/2024 09:09:40 4 76420 Therapeutic Exercise (1:1) completed Gray Lamb PTA [address], [place], [address], [facility] 03/04/2024 16:17:09 4 71161: Hot or Cold Pack completed Gray Lamb PTA [address], [place], [address], [facility] 03/04/2024 16:17:09 4 23552 Therapeutic Exercise (1:1) completed Gray Lamb PTA [address], [place], [address], [facility] 02/29/2024 08:44:41 4 85220: Hot or Cold Pack completed Gray Lamb [employer] [address], [place], [address], [facility] 02/29/2024 08:44:41 4 68896 Therapeutic Exercise (1:1) completed Gray Lamb PTA [address], [place], [address], [facility] 02/26/2024 12:26:23 4 96084: Hot or Cold Pack completed Gray Lamb PTA [address], [place], [address], [facility] 02/26/2024 12:24:48 4 09656 Therapeutic Exercise (1:1) completed Dayna Yadav DPT [address], [place], [address], [facility] 02/21/2024 11:39:20 4 94746: Hot or Cold Pack completed Dayna Yadav DPT [address], [place], [address], [facility] 02/21/2024 11:39:20 4 16150 Therapeutic Exercise (1:1) completed Dayna Yadav DPT [address], [place], [address], [facility] 02/19/2024 13:04:30 4 80499: Hot or Cold Pack completed Dayna Yadav DPT [address], [place], [address], [facility] 02/19/2024 12:06:40 4 53269 Therapeutic Exercise (1:1) completed Dayna Yadav DPT [address], [place], [address], [facility] 02/16/2024 15:19:49 4 94653: Low complexity PT Eval completed Dayna Yadav DPT [address], [place], [address], [facility] 02/16/2024 15:19:42 4 88554 Therapeutic Exercise (1:1) completed Dayna Yadav DPT [address], [place], [address], [facility] 12/31/2023 18:25:35 4 15816: Low complexity PT Eval completed Dayna Yadav DPT [address], [place], [address], [facility] 12/31/2023 18:25:51 Imaging Results Imaging Date Name Status LastModified by Organiz ation Details LastModified Time 02/20/2024 XR, knee, 3 view completed INTERFACE [facility] [address], [place], [address], 02/20/2024 14:40:59 02/20/2024 XR, knee, 3 view completed INTERFACE [facility] [address], [place], [address], 02/20/2024 14:41:01 Procedure Notes None recorded. Medical Equipment None Reported. Allergies Allergen ID Allergen Name Allergen Category Reaction Reaction Severity Criticality Documentation Date Start Date Code Code System Note Provider Name and Address Organization Details Recorded Time 665033 codeine medicatio n Not available Not available Not available 10/02/20232021 2670 RxNorm Not Available [facility] 4 15:27:03 Medications Name Sig Start Date Stop Date Status Note LastModified by Organization Details LastModified Time amoxicillin 500 mg capsule active Not Available Not Available Not Available oxybutynin chloride ER 10 mg tablet,exte nded release 24 hr active Not Available Not Available Not Available clarithromy adelina 500 mg tablet 05/16 completed Not Available Not Available Not Available meloxicam 15 mg tablet active Not Available Not Available Not Available prednisone 20 mg tablet 05/16 completed Not Available Not Available Not Available carbidopa ER 50 mg-levodopa 200 mg tablet,exte nded release active Not Available Not Available Not Available sertraline 100 mg tablet active Not Available Not Available Not Available metronidazo le 500 mg tablet active Not Available Not Available Not Available azathioprin e 50 mg tablet TAKE 4 TABLETS BY MOUTH DAILY active Not Available Not Available No t Available tramadol 50 mg tablet Take 1 tablet every 6 hours by oral route after meal(s). 05/16 completed Not Available Not Available Not Available trazodone 100 mg tablet 05/16 completed Not Available Not Available Not Available erythromyci n 5 mg/gram (0.5 %) eye ointment APPLY 1/2 INCH INTO LEFT EYE FOUR TIMES DAILY FOR 10 DAYS 05/16 completed Not Available Not Available Not Available omeprazole 20 mg capsule,del ayed release active Not Available Not Available Not Available folic acid 1 mg tablet active Not Available Not Available Not Available bisacodyl 5 mg tablet,calista yed release TAKE 2 TABLETS BY MOUTH RIGHT BEFORE BEGINNING BOWEL PREP. FOLLOW INSTRUCTI ONS GIVEN BY OFFICE FOR TIMING 05/16 completed Not Available Not Available Not Available albuterol sulfate HFA 90 mcg/actuati on aerosol inhaler INHALE 2 PUFFS BY MOUTH EVERY 4 HOURS 05/16 completed Not Available Not Available Not Available carbidopa 25 mg-levodopa 100 mg tablet 05/16 completed Not Available Not Available Not Available ipratropium bromide 21 mcg (0.03 %) nasal spray active Not Available Not Available Not Available DentaGel 1.1 % APPLY THIN FILM TO ALL TEETH BEFORE BED. NO EATING OR RINSING FOR 30 MIN active Not Available Not Available No t Available Pulmicort Flexhaler 180 mcg/actuati on breath activated INHALE 2 PUFFS BY MOUTH TWICE DAILY 05/16 completed Not Available Not Available Not Available GaviLyte-G 236 gram-22.74 gram-6.74 gram-5.86 gram oral solution 05/16 completed Not Available Not Available Not Available Vitals Date Recorded Body height Body mass index (BMI) Body weight Provider Name and Address Organization Details Last Updated DateTime 05/16/2024 172.72 cm 31.6 kg/m2 07546.21 g Sarai iHggins [place] [facility] 05/16/2024 14:53:34 Social History None recorded. Functional Status None recorded. Mental Status None recorded. Family History Nothing Reported. Medical History No medical history recorded. Past Encounters Encounter ID Performer Location Encounter Start Date Encounter Closed Date Diagnosis/Indication Diagnosis SNOMED-CT Code Diagnosis ICD10 Code Diagnosis Note [id number] Jorge Magallanes MD [facility] [address] [place] [address] 12/27/2023 14:10:17 01/24/2024 13:48:25 Pain of bilateral knee regions 7023185641 71695 M25.562 Bilateral osteoarthritis of knees 2427535623 51863 M17.0 [id number] BRIANA Hickey PT [address] [place] [address] 01/02/2024 15:06:26 01/02/2024 16:28:26 Arthritis of left knee 9286994513 473344 M13.759 [id number] MD Ebenezer Moreno [address] [place] [address] 01/18/2024 09:57:12 02/13/2024 14:44:14 Osteoarthritis of left knee joint 4814827827 28145 M17.12 [id number] Sarah Suarez APRN [facility] [address] [place] [address] 01/18/2024 09:16:42 02/16/2024 12:35:39 [id number] BRIANA Hickey PT [address] [place] [address] 02/16/2024 15:21:39 02/16/2024 16:32:01 Follow-up orthopedic assessment 110384623 Z47.1 History of left total knee replacement 8138794498 919647 Z96.586 [id number] BRIANA Hickey PT [address] [place] [address] 02/19/2024 11:27:38 02/19/2024 13:05:21 Follow-up orthopedic assessment 891466921 Z47.1 History of left total knee replacement 9842820950 825709 Z96.434 [id number] Casa Youssef PA-C [facility] [address] [place] [address] 02/20/2024 13:45:44 03/19/2024 12:09:12 Aftercare 721048818 Z51.89 Implantati on of joint prosthesis 47030847 Z47.1 History of left total knee replacement 8981976551 725472 Z96.155 [id number] BRAINA Hickey PT [address] [place] [address] 02/21/2024 11:31:16 02/21/2024 13:28:33 Follow-up orthopedic assessment 830508703 Z47.1 History of left total knee replacement 2741003197 815865 Z96.873 [id number] BRIANA Hickeyon PT [address] [place] [address] 02/26/2024 11:09:43 02/26/2024 12:27:53 Follow-up orthopedic assessment 283851793 Z47.1 History of left total knee replacement 9568134036 209161 Z96.778 [id number] BRIANA Hickeyon PT [address] [place] [address] 02/29/2024 10:20:49 02/29/2024 12:23:40 Follow-up orthopedic assessment 132585362 Z47.1 History of left total knee replacement 7573091777 157768 Z96.201 [id number] BRIANA Hickeyon PT [address] [place] [address] 03/05/2024 11:20:46 03/05/2024 12:17:24 Follow-up orthopedic assessment 670734394 Z47.1 History of left total knee replacement 5862443244 252663 Z96.439 [id number] Dayna Yadav DPT [facility] [address] [place] [address] 03/07/2024 11:25:18 03/07/2024 12:32:16 Follow-up orthopedic assessment 322403039 Z47.1 History of left total knee replacement 4522503077 217389 Z96.293 [id number] Dayna Yadav DPT [facility] [address] [place] [address] 03/11/2024 12:00:05 03/11/2024 12:59:28 Follow-up orthopedic assessment 955424046 Z47.1 History of left total knee replacement 3524156886 143845 Z96.396 [id number] Dayna Yadav DPT [facility] [address] [place] [address] 03/13/2024 10:45:26 03/13/2024 13:33:55 Follow-up orthopedic assessment 880354751 Z47.1 History of left total knee replacement 9852983051 277185 Z96.044 [id number] BRIANA Hickey PT [address] [place] [address] 03/20/2024 17:05:31 03/20/2024 18:48:39 Follow-up orthopedic assessment 138365718 Z47.1 History of left total knee replacement 7313533552 940382 Z96.859 [id number] BRIANA Hickey PT [address] [place] [address] 03/28/2024 11:29:40 03/28/2024 12:55:50 Follow-up orthopedic assessment 409048811 Z47.1 History of left total knee replacement 6263877247 671178 Z96.065 [id number] MD Rodney [facility]no [address] [place] [address] 05/16/2024 14:43:09 06/06/2024 14:04:56 History of left total knee replacement 7071299667 866572 Z96.652 Health Concerns Section Related Observation LastModified by Organization Detai ls LastModified Time None Recorded Concern Status LastModified by Organization Details LastModified Time None Recorded Advance Directives Directive None Recorded Payers Encounter Date Sequence Insurance Name Policy Number Policy Reyes Covered Member ID Reyes Member ID Guarantor Name 03/11/2024 [facility] Zi Rodarte [id number] Zi Rodarte 03/13/2024 [facility] Zi Rodarte [id number] Zi Rodarte 03/20/2024 [facility] Zi Rodarte [id number] Zi Rodarte 03/28/2024 [facility] Zi Rodarte [id number] Zi Rodarte 05/16/2024 [facility] Zi Rodarte [id number] Zi Rodarte Notes Date Note Type Note Provider Name and Address Organization Details Recorded Time 03/11/2024 text/html Pt reporting 4-5/10 pain coming into therapy. Gray Lamb [employer] [address], [place], [address], [facility] 03/11/2024 12:59:21 03/13/2024 text/html Pt reporting 4/10 pain coming into therapy. Gray Lamb PTA [address], [place], [address], [facility] 03/13/2024 13:33:47 03/20/2024 text/html Pt reporting 4/10 pain coming into therapy. Dayna Yadav DPT [address], [place], [address], [facility] 03/20/2024 18:48:33 03/28/2024 text/html Pt denies pain coming into therapy, reporting his parkinson's is getting worse. Dayna Yadav DPT [address], [place], [address], [facility] 03/28/2024 12:55:00
--- OUTSIDE RECORDS SUMMARY | 2024-09-18 10:37 | XMS_ITS | Clinical Summary ---
Author Organization [address] [facility] Address [address] [place] [address] Phone Care Team Providers Care Instructor Physical Name Role Phone Juany Pereira MD Primary Care Provider [phone] Allergies Active Allergy Reactions Criticality Noted Date Comments Codeine Unknown 07/20/2020 Medications bisacodyL (DULCOLAX) 5 mg EC tablet Take 2 tabs by mouth right before beginning bowel prep. Follow instructions given by office for timing. 4 Active polyethylene glycol (GoLYTELY) 236-22.74-6.74 -5.86 gram solution Take 240 mL by mouth once for 1 dose. Take 4L by mouth once for one dose. May substitue any PEG. Starting at 6PM the night before your procedure drink 1 8oz glasses at your own pace until rectals run clear. 4 Active triamcinolone acetonide (KENALOG-40) 40 mg/mL injection Inject 1 mL into the articular space once for 1 dose. 1 Active lithium 300 mg capsule Take 300 mg by mouth daily. Active primidone (MYSOLINE) 50 mg tablet Take 50 mg by mouth daily. Active methylphenidate (RITALIN) 20 mg tablet Take 20 mg by mouth 2 times daily. Active acetaminophen (TYLENOL) 500 mg tablet Take 500 mg by mouth every 6 hours as needed. Active ARIPiprazole (ABILIFY) 15 mg tablet Take 15 mg by mouth daily. Active colestipoL (COLESTID) 5 gram packet Take 5 g by mouth 2 times daily. Active diclofenac (VOLTAREN) 1 % topical gel Apply topically. A ctive omega-3 acid ethyl esters (LOVAZA) 1 gram capsule Take by mouth. Activ e folic acid (FOLVITE) 1 mg tablet Take 1 mg by mouth daily. Active melatonin 3 mg tablet Take by mouth. Activ e venlafaxine XR (EFFEXOR-XR) 75 mg 24 hr capsule Take 1 capsule (75 mg total) by mouth 1 (one) time each day. Active cyanocobalamin, vitamin B-12, 1,000 mcg/mL kit Inject as directed. Active carbidopa-levod opa CR (SINEMET CR) 50-200 mg per CR tablet Take by mouth. 3 Active meloxicam (MOBIC) 15 mg tablet Take 1 tablet by mouth every day as needed Indications: pain 3 Active oxyBUTYnin XL (DITROPAN-XL) 10 mg 24 hr tablet Take 1 tablet (10 mg total) by mouth. 3 Active azaTHIOprine (IMURAN) 50 mg tablet Take 4 tablets (200 mg total) by mouth 1 (one) time each day. 360 each 4 10/16/19 25 Active Active Problems Problem Noted Date Diagnosed Date Depressive disorder 05/06/2024 Arthralgia 12/07/2020 Overview (05/06/2024): Bilateral knees Insomnia 12/07/2020 Peripheral neuropathy 12/07/2020 Tremor of right hand 12/07/2020 B12 deficiency anemia 07/20/2020 Benign prostate hyperplasia 07/20/2020 Degeneration of cervical intervertebral disc Hyperlipidemia 07/20/2020 Hypothyroidism 07/20/2020 Nephrolithiasis 07/20/2020 Osteoarthritis 07/20/2020 Overview (05/06/2024): Bilateral knees Crohn's disease involving terminal ileum 969 Immunizations Name Administration Dates Next Due Moderna SARS-CoV-2 COVID-19, mRNA, LNP-S, preservative free 10/10/2020,09/06/2020 Zoster recombinant (Shingrix) 19yo and older Surgical History Surgery Date Site/Laterality Comments APPENDECTOMY PROCEDURE: [place] APPENDECTOMY COLONOSCOPY 2017 PROCEDURE: HISTORICAL COLONOSCOPY Medical History Medical History Date Comments Depressive disorder DX:Depressiv e disorder Crohn's disease involving te rminal ileum (CMS/HCC) 1969 DX:Crohn's disease involving terminal ileum (HCC) Hypothyroidism 07/20/2020 DX:Hypothyroidis m B12 deficiency anemia 07/20/2020 DX:B12 def iciency anemia Peripheral neuropathy 12/07/2020 DX:Periphe ral neuropathy Degeneration of cervical intervertebral disc 07/20/2020 DX:Degeneration of cervical intervertebral disc Arthralgia 12/07/2020 DX:Arthralgia Insomnia 12/07/2020 DX:Insomnia Tremor of right hand 12/07/2020 DX:Tremor o f right hand Benign prostate hyperplasia 07/20/2020 DX:B enign prostate hyperplasia Hyperlipidemia 07/20/2020 DX:Hyperlipidemi a Osteoarthritis 07/20/2020 DX:Osteoarthriti s; COMMENT: Bilateral knees Nephrolithiasis 07/20/2020 DX:Nephrolithias is Family History Medical History Relation Name Comments Stomach cancer Father Relation Name Status Comments Father Mother Alive Social History Tobacco Use Types Packs/Day Years Used Date Smoking Tobacco: Never Smokeless Tobacco: Never Alcohol Use Standard Drinks/Week Comments Not Currently 0 (1 standard drink = 0.6 oz pur e alcohol) Sex and Gender Information Value Date Recorded Sex Assigned at Not on file Legal Sex Male 6:40 PM EST Gender Identity Not on file Sexual Orientation Not on file Obstetrics History Last Filed Vital Signs Vital Sign Reading Time Taken Comments Blood Pressure 132/64 06/14/2024 2:20 PM EST Pulse 107 06/14/2024 2:20 PM EST Temperature - - Respiratory Rate - - Oxygen Saturation 98% 06/14/2024 2:20 PM EST Inhaled Oxygen Concentration - - Weight 96.6 kg (213 lb) 06/14/2024 2:20 PM EST Height 174 cm (5' 8.5 ) 06/14/2024 2:20 PM EST Body Mass Index 31.92 06/14/2024 2:20 PM EST Plan of Treatment Health Maintenance Due Date Last Done Comments Cholesterol Screening (Lipid Panel) 07/09/2022 Colorectal Cancer Screening: Colonoscopy 07/09/2022 Depression Screening 07/09/2022 Falls Risk Assessment 07/09/2022 Hepatitis C Screening 07/09/2022 Social Influencers of Health Screening 07/09/2022 RSV Immunization Patients 60+ Years Old (1 - 1-dose 75+ series) 02/28/2024 COVID-19 Vaccine ( - 2023- season) 2024 07/05/2022, 06/22/2021, 10/10/2020, Additional history exists DTaP,Tdap,and Td Vaccines (4 - Td or Tdap) 12/09/2030 12/09/2020, 02/25/2011, 01/07/2005 Pneumococcal Vaccine: 50+ Years Completed 03/14/2017, 04/09/2015, 03/18/2010 Zoster Vaccines Completed 01/11/2021, 07/15/2020 Influenza Vaccine Completed 04/25/2024, , 05/17/2023, Additional history exists HIB Vaccines Aged Out No longer eligi ble based on patient's age to complete this topic HPV Vaccines Aged Out No longer eligi ble based on patient's age to complete this topic Hepatitis A Vaccines Aged Out No long er eligible based on patient's age to complete this topic Hepatitis B Vaccines Aged Out No long er eligible based on patient's age to complete this topic IPV Vaccines Aged Out No longer eligi ble based on patient's age to complete this topic MMR Vaccines Aged Out No longer eligi ble based on patient's age to complete this topic Meningococcal ACWY Vaccine Aged Out N o longer eligible based on patient's age to complete this topic Meningococcal B Vacine Aged Out No lo nger eligible based on patient's age to complete this topic RSV Immunization Patients Under 20 months Aged Out No longer eligible based on patient's age to complete this topic Varicella Vaccines Aged Out No longer eligible based on patient's age to complete this topic Insurance ADMINISTRATION Care Teams Instructor Physical Relationship Specialty Start Date End Date Juany Pereira MD [address] [place] [address] PCP - General 08/03/20
--- OUTSIDE RECORDS SUMMARY | 2024-09-18 10:37 | XMS_ITS | Encounter Summary ---
Author Organization [facility] Address [address] [place] [address] Care Team Providers Care Sweatband Flanger Name Role Phone Juany Pereira Primary Care Provider Unavailabl e Reason for Visit * Reason Onset Date Comments Medication 07/17/2023 Encounter Details Date Type Department Care Team Description 07/17/2023 Refill Gastroenterology - [address] [place] [address] Ryan Almendarez MD [address] [place] [id number] Medication Social History Tobacco Use Types Packs/Day Years Used Date Smoking Tobacco: Never Smokeless Tobacco: Never Alcohol Use Standard Drinks/Week Comments No 0 (1 standard drink = 0.6 oz pur e alcohol) Alcohol Habits Answer Date Recorded How often do you have a drink containing alcohol ? Never 07/29/2020 How many drinks containing a lcohol do you have on a typical day when you are drinking? Not asked How often do you have six or more drinks on one occasion? Not asked Sex Assigned at Date Recorded Not on file Job Start Date Occupation Industry Not on file Not on file Not on file documented as of this encounter Plan of Treatment Not on file documented as of this encounter Visit Diagnoses Not on filedocumented in this encounter Care Teams Sweatband Flanger Relationship Specialty Start Date End Date Juany Pereira PCP - General Family Practice 08/03/20 documented as of this encounter
--- OUTSIDE RECORDS SUMMARY | 2024-09-18 10:37 | XMS_ITS | Encounter Summary ---
Author Organization [facility] Address [address] [place] [address] Care Team Providers Care Precision Assembler Name Role Phone Juany Pereira Primary Care Provider Unavailabl e Reason for Visit * Reason Onset Date Comments APPOINTMENT 10/15/2020 Encounter Details Date Type Department Care Team Description 10/15/2020 Telephone Gastroenterology - [address] [place] [address] Ryan Almendarez MD [address] [place] [id number] APPOINTMENT Social History Tobacco Use Types Packs/Day Years [...] on file documented as of this encounter Miscellaneous Notes * Telephone Encounter - Danielle Zurita - 10/15/2020 2:44 PM EDT Left pt detailed message for pt to call office to reschedule follow up apt with Dr. Almendarez documented in this encounter Plan of Treatment Not on file documented as of this encounter Visit Diagnoses Not on filedocumented in this encounter Care Teams Precision Assembler Relationship Specialty Start Date End Date Juany Pereira PCP - General Family Practice 08/03/20 documented as of this encounter
--- OUTSIDE RECORDS SUMMARY | 2024-09-18 10:37 | XMS_ITS | Encounter Summary ---
Author Organization [facility] Address [address] [place] [id number] Care Team Providers Care Wax Specialist Name Role Phone Juany Pereira Primary Care Provider Unavailkarla e Encounter Details Date Type Department Care Team Description 12/20/2022 Transfer Records Medical Records [address] [place] [address] Abstract, Provider Social History Tobacco Use Types Packs/Day Years [...] file Not on file Not on file COVID-19 Exposure Response Date Recorded In the last 10 days, have yo u been in contact with someone who was confirmed or suspected to have Coronavirus/COVID-19? No / Unsure 12/09/2022 1:24 PM EDT documented as of this encounter Plan of Treatment Not on file documented as of this encounter Visit Diagnoses Not on filedocumented in this encounter Care Teams Wax Specialist Relationship Specialty Start Date End Date Juany Pereira PCP - General Family Practice 08/03/20 documented as of this encounter
--- OUTSIDE RECORDS SUMMARY | 2024-09-18 10:37 | XMS_ITS | Encounter Summary ---
Author Organization [facility] Address [address] [place] [address] Care Team Providers Care Computer Art Instructor Name Role Phone Juany Pereira Primary Care Provider Unavailabl e Encounter Details Date Type Department Care Team Description 09/22/2023 Refill Gastroenterology - [address] [place] [id number] Ryan Almendarez MD [address] [place] [id number] Social History Tobacco Use Types Packs/Day Years [...] on filedocumented in this encounter Care Teams Computer Art Instructor Relationship Specialty Start Date End Date Juany Pereira PCP - General Family Practice 08/03/20 documented as of this encounter
--- OUTSIDE RECORDS SUMMARY | 2024-09-18 10:37 | XMS_ITS | Encounter Summary ---
Author Organization [facility] Address [address] [place] [address] Care Team Providers Care Chief Crna Name Role Phone Juany Pereira Primary Care Provider Unavailkarla e Encounter Details Date Type Department Care Team Description 04/20/2022 Transfer Records Medical Records [address] [place] [address] Abstract, Provider Social History Tobacco Use Types [...] suspected to have Coronavirus/COVID-19? No / Unsure 04/13/2022 9:10 AM EDT documented as of this encounter Plan of Treatment Not on file documented as of this encounter Visit Diagnoses Not on filedocumented in this encounter Care Teams Chief Crna Relationship Specialty Start Date End Date Juany Pereira PCP - General Family Practice 08/03/20 documented as of this encounter
--- OUTSIDE RECORDS SUMMARY | 2024-09-18 10:37 | XMS_ITS | Encounter Summary ---
Author Organization [facility] Address [address] [place] [address] Care Team Providers Care Fabrication And Assembly Supervisor Name Role Phone Tessy Pereiraa Primary Care Provider Unavailabl e Reason for Visit * Reason Onset Date Comments refill request 04/16/2024 Encounter Details Date Type Department Care Team Description 04/16/2024 Refill Gastroenterology - [address] [place] [address] Ryan Almendarez MD [address] [place] [address] refill request Social History Tobacco Use Types Packs/Day Years [...] encounter Miscellaneous Notes * Telephone Encounter - Shelly Tena M.A. - 04/17/2024 8:11 AM EDT Phu: 12/09/2022 EGD/Colon: 09/01/2023 No upcoming * Telephone Encounter - Rain Jimenez - 04/16/2024 9:44 AM EDT Phu 12/09/22 No upcoming documented in this encounter Plan of Treatment Not on file documented as of this encounter Visit Diagnoses Diagnosis Crohn's disease involving terminal ileum (HCC) documented in this encounter Care Teams Fabrication And Assembly Supervisor Relationship Specialty Start Date End Date Juany Pereira PCP - General Family Practice 08/03/20 documented as of this encounter
--- OUTSIDE RECORDS SUMMARY | 2024-09-18 10:37 | XMS_ITS | Encounter Summary ---
Author Organization [facility] Address [address] [place] [address] Care Team Providers Care Transplant Surgeon Name Role Phone Juany Pereira Primary Care Provider Unavailabl e Reason for Visit * Reason Onset Date Comments refill request 01/23/2023 Encounter Details Date Type Department Care Team Description 01/23/2023 Refill Gastroenterology - [address] [place] [address] Ryan Almendarez MD [address] [place] [address] refill request Social History Tobacco Use Types [...] encounter Miscellaneous Notes * Telephone Encounter - Rain Jimenez - 01/23/2023 2:36 PM EDT Phu 12/09/22 Nov 08/07/23 procedure documented in this encounter Plan of Treatment Not on file documented as of this encounter Visit Diagnoses Diagnosis Crohn's disease involving terminal ileum (HCC) documented in this encounter Care Teams Transplant Surgeon Relationship Specialty Start Date End Date Juany Pereira PCP - General Family Practice 08/03/20 documented as of this encounter
--- OUTSIDE RECORDS SUMMARY | 2024-09-18 10:37 | XMS_ITS | Encounter Summary ---
Author Organization [facility] Address [address] [place] [address] Care Team Providers Care Customer Service Dispatcher Name Role Phone Tessy Pereiraa Primary Care Provider Unavailabl e Reason for Visit * Reason Onset Date Comments refill request 09/11/2023 Encounter Details Date Type Department Care Team Description 09/11/2023 Refill Gastroenterology - [address] [place] [address] Ryan Almendarez MD [address] [place] [address] refill request Social History Tobacco Use Types [...] encounter Miscellaneous Notes * Telephone Encounter - Jorge Paredes M.A. - 09/15/2023 10:33 AM EST Please refill as covering provider. Pt is out of medicine completely. Thank you Phu- 09/01/2023 Nov- unknown Jorge Langford * Telephone Encounter - Vernell Ochoa - 09/13/2023 11:08 AM EST [facility]. Needs refill for azathioprine faxed to [phone] * Telephone Encounter - Juany Ivey - 09/11/2023 2:37 PM EST Phu 09/01/2023 No upcoming 90 day supply documented in this encounter Plan of Treatment Not on file documented as of this encounter Visit Diagnoses Diagnosis Crohn's disease involving terminal ileum (HCC) documented in this encounter Care Teams Customer Service Dispatcher Relationship Specialty Start Date End Date Juany Pereira PCP - General Family Practice 08/03/20 documented as of this encounter
--- OUTSIDE RECORDS SUMMARY | 2024-09-18 10:37 | XMS_ITS | Clinical Summary ---
Author Organization [facility] Address [address] [place] [address] Care Team Providers Care Director Of Physical Security Name Role Phone Juany Pereira MD Primary Care Provider [phone] Allergies Active Allergy Reactions Criticality Noted Date Comments Codeine Nausea And Vomiting 12/20/2022 Medications Medication Sig Dispensed Refills Start Date End Date Status ARIPiprazole (ABILIFY) 15 MG tablet Take 1 tablet by mouth every day Indications: mood 0 Active azaTHIOprine (IMURAN) 50 MG tablet Take 1 tablet by mouth 3 times a day Indications: Crohn's disease 0 04/13/2022 Active colestipol (COLESTID) 5 g granules Mix and drink 5g in juice every day Indications: intestine reconstruction 0 Active carbidopa-levodopa (SINEMET) 25-100 MG per tablet Take 1 tablet by mouth 3 times a day Indications: a type of movement disorder called parkinsonism 0 08/09/2022 Active acetaminophen (TYLENOL EXTRA STRENGTH) 500 MG tablet Take 1 tablet by mouth every 6 hours as needed. Indications: pain associated with arthritis 0 Active folic acid (FOLVITE) tablet 1 mg Take 1 tablet by mouth every day Indications: supplement 0 Active lithium carbonate 300 MG capsule Take 1 tablet by mouth every day Indications: mood 0 Active meloxicam (MOBIC) 15 MG tablet 0 10/11/2022 Active oxybutynin (DITROPAN-XL) 5 MG 24 hr tablet Take 1 tablet by mouth every day Indications: overactive bladder 0 08/09/2022 Active traZODone (DESYREL) 100 MG tablet Take 1 tablet by mouth every day Indications: unspecified 0 08/09/2022 Active primidone (MYSOLINE) 50 MG tablet Take 1 tablet by mouth every day Indications: tremors 0 Active Active Problems No known active problems Social History Tobacco Use Types Packs/Day Years Used Date Smoking Tobacco: Never Smokeless Tobacco: Never Tobacco Cessation:Counseling Given: Not Answered Alcohol Use Standard Drinks/Week Comments Not Currently 0 (1 standard drink = 0.6 oz pur e alcohol) Sex and Gender Information Value Date Recorded Sex Assigned at Male 11/03/2022 2:11 PM EDT Gender Identity Not on file Sexual Orientation Not on file Job Start Date Occupation Industry Not on file Not on file Not on file Last Filed Vital Signs Vital Sign Reading Time Taken Comments Blood Pressure 138/72 12/20/2022 11:34 AM EDT Pulse 76 12/20/2022 11:34 AM EDT Temperature 36.3 ??C (97.4 ??F) 12/20/2022 11:34 AM E DT Respiratory Rate - - Oxygen Saturation 97% 12/20/2022 11:34 AM EDT Inhaled Oxygen Concentration - - Weight 95.7 kg (211 lb) 12/20/2022 11:34 AM EDT Height - - Body Mass Index - - Plan of Treatment Health Maintenance Due Date Last Done Comments Hepatitis C Screening 1950 COVID-19 Vaccine (#1) 1954 Pneumococcal Vaccine (1 of 2 - PCV) 1955 Depression Screening 1961 Preventative Health Evaluation 1967 DTap / Tdap / Td (1 - Tdap) 02/28/1968 Colon Cancer Screening (Colonoscopy) 1994 Fall Risk Assessment 2014 Shingrix-Zoster Vaccine (2 of 2) 03/08/2021 01/12/20 21 RSV Adult > 60+ Yrs or Pregn ant (1 - 1-dose 75+ series) 02/28/2024 Influenza Vaccine (#1) 2024 Hepatitis B Vaccines Aged Out No long er eligible based on patient's age to complete this topic RSV Ped < 20 months Aged Out No longe r eligible based on patient's age to complete this topic Care Teams Director Of Physical Security Relationship Specialty Start Date End Date Juany Pereira MD [address] [place] [phone] PCP - General Family Medicine 11/03/22
--- OUTSIDE RECORDS SUMMARY | 2024-09-18 10:37 | XMS_ITS | Encounter Summary ---
Author Organization [facility] Address [address] [place] [address] Care Team Providers Care Nozzle Worker Name Role Phone Juany Pereira Primary Care Provider Unavailabl e Encounter Details Date Type Department Care Team Description 09/01/2023 Hospital Medical Records [address] [place] [address] Ryan Almendarez MD [address] [place] [address] Social History Tobacco Use Types Packs/Day Years [...] on filedocumented in this encounter Care Teams Nozzle Worker Relationship Specialty Start Date End Date Juany Pereira PCP - General Family Practice 08/03/20 documented as of this encounter
[2024-10-23] VITALS (7 sets, daily range): BP systolic 141–178; BP diastolic 74–87; PULSE 76–84; RESP 14–18; TEMP 36.5–36.7; O2SAT 95–98; BMI 31.9
[2024-10-23] MEDS: Lactated Ringers 1,000 ML 100 ML IVCONT (07:25)
--- NOTE | 2024-10-23 07:28 | MHC.SHP ---
Pre-Procedural Eval Section A - 24 Hr Update-Section A only Date of Service: 10/23/24 The patient is an INPATIENT: No The patient has been examined within 24 hours of the surgical procedure. The History & Physical has been completed within 30 days and I have reviewed it.: No Section B - Complete if H&P > 30 days Chief Complaint: depression Details of Present Illness: parkinsons disease some discouragement dysphoria no si Relevant Social History: None Allergies: Allergies Allergy/AdvReac Type Severity Reaction Status Date / Time codeine Allergy Intermediate Rash Verified 03/22/24 13:09 Review of Systems Sugical H&P ROS: Negative: Constitution, Cardiovascular and Psychiatric (somedep scre parkinson) and Yes, Specify: Respiratory (occ mild sob with exercise) and Neurological (mild parkinsons sx tremor) Exam Surgical H&P Exam: Normal: Heart (rr) and Normal: Lungs (clear) and Significant Findings: Neurological (mild rigidity tremor) Plan Diagnosis/Plan: Unchanged I have reviewed the history and physical and performed a pertinent physical examination on my patient. No changes have occurred unless specified. Time Spent With Patient Time: Total time managing care of this patient today ____ minutes.
--- NOTE | 2024-10-23 07:32 | HO.ANESPROP2 ---
HPI - Anesthesia Eval Consult details Narrative: 74 yo male patient for ECT PMFSH Active Problems Active Problems: All Active Problems Parkinson's disease without dyskinesia, without mention of fluctuations (Acute) Major depressive disorder, recurrent episode, in partial remission with catatonia (Acute) Parkinson's disease (tremor, stiffness, slow motion, unstable posture) (Acute) Major depressive disorder, recurrent episode with mood-congruent psychotic features (Acute) Hypothyroidism (Acute) Vitamin B12 deficiency (Acute) Parkinsonian features (Acute) Crohn's disease (Acute) Past Medical History Medical History Parkinson's disease without dyskinesia, without mention of fluctuations Parkinson's disease (tremor, stiffness, slow motion, unstable posture) Osteoarthritis Crohn's disease Parkinsonian features Vitamin B12 deficiency Hypothyroidism Major depressive disorder, recurrent episode with mood-congruent psychotic features Family History Family History Father Stomach cancer Mother Dementia Family history of problems with anesthesia: No Surgical History Surgical History S/P small bowel resection History of Problems with Anesthesia: No Social History Social History Household Members: Spouse Housing: House Do you presently have visiting nurse or other home services: No Patient Tobacco Use Status: Never used Tobacco Tobacco use type: Cigarette Advance Directives: No Advance Directives Information Provided: Yes service: Yes Sexual orientation: Straight/Heterosexual Meds Allergies Allergy/AdvReac Type Severity Reaction Status Date / Time codeine Allergy Intermediate Rash Verified 03/22/24 13:09 Active Medications: Current Medications Lactated Ringer's (Lr) 1,000 mls @ 100 mls/hr IVCONT .Q10H KATHRYN Last Admin: 10/23/24 07:25 Dose: 100 mls/hr Home Medications ?Medication ?Instructions ?Recorded ?Confirmed ?Last Taken ?Type azathioprine 50 mg tablet 200 mg PO DAILY 03/22/24 03/22/24 Unknown History cyanocobalamin (vitamin B-12) 100 mcg subcut DAILY 03/22/24 03/22/24 Unknown History 1,000 mcg/mL injection solution lithium carbonate 300 mg tablet 300 mg PO BEDTIME 03/22/24 03/22/24 Unknown History venlafaxine 150 mg 300 mg PO DAILY 03/22/24 03/22/24 Unknown History capsule,extended release 24 hr Exam Height,Weight and Vital Signs: Height 5 ft 8 in Weight 95.254 kg Last Vital Signs Temp 97.7 F 10/23/24 06:31 Pulse 76 10/23/24 06:31 Resp 18 10/23/24 06:31 BP 156/74 H 10/23/24 06:31 Pulse Ox 98 10/23/24 06:31 O2 Del Method Room Air 10/23/24 06:31 Airway Mallampati Class: II TM Dist: >3cm Neck ROM: Full Loose/Missing/Broken Teeth: Yes (Broken tooth bottom left) Heart: RRR Lungs: CTAB Assessment and Plan Assessment Anesthesia Assessment: Anesthesia Plan Discussed and Chart Reviewed Final Anesthetic Review Family History of Problems with Anesthesia: No History of Problems with Anesthesia: No NPO: Yes ASA Class: III Final Preanesthetic Review: No Changes in Pt Med Stat, Meds/Allgs Chart Reviewed, Consent Obtained/Reviewed and Anes Risks/Benef Reviewed Patient Risk: Intermediate Procedure Risk: Intermediate Anesthetic Plan Anesthetic Plan: GA Disposition: Standard PACU
--- NOTE | 2024-10-23 07:34 | HO.ECTPROC ---
ECT Procedure Note Diagnosis/Treatment Date of Service: 10/23/24 Diagnosis: Major Depressive Disorder Previous ECT Date: 09/18/24 Treatment: Maintenance Interval Clinical Notes: pt reports some inc dep sx worried re inc parkinsonian sx. tolerated tx well some inc range of affect. No cognitive complaints with ect Time: Total time managing care of this patient today _30___ minutes. ECT Settings Device: THYMATRON DGx Electrode Placement: Rt temporal/ Lt frontal Program/Pulse Width: 0.50 Energy Percent: 100 Seizure Duration By EEG (in seconds): 69 Medications Administration General Anesthetic: Etomidate (14) Muscle Relaxant: Succinylcholine (140) Airway Management Airway Management: Bag Mask Ventilation Treatment Recommendations No Changes Recommended: No change Notes: f/u tx 3 weeks Pt Tolerated Procedure w/o Issue: Yes
== END 2024-10-23 09:08 | disposition home or self-care (01) ==
PROVIDERS: PCP Student in an Organized Health Care Education/Training Program; Visit Provider Psychiatry & Neurology Psychiatry
PROC: (CPT 90870; principal; 2024-10-23 07:00)
DX: F33.2 Major depressive disorder, recurrent severe without psychotic features (principal); G20.A1 Parkinson's disease without dyskinesia, without mention of fluctuations; E53.8 Deficiency of other specified B group vitamins; K50.90 Crohn's disease, unspecified, without complications; E03.9 Hypothyroidism, unspecified; Z79.899 Other long term (current) drug therapy; Z88.5 Allergy status to narcotic agent
CPT/HCPCS: 90870; J0330; J2405

== ENCOUNTER → 2024-10-23 05:41 | Outpatient (BNV) | payer OTHER, SELFPAY | PROVIDERS: PCP Student in an Organized Health Care Education/Training Program; Visit Provider Psychiatry & Neurology Psychiatry | DX: F33.2 Major depressive disorder, recurrent severe without psychotic features (principal) | CPT/HCPCS: 90870 ==

== ENCOUNTER 2024-11-22 05:38 | Day surgery (SDC) | payer OTHER, SELFPAY ==
[2024-11-22] VITALS (9 sets, daily range): BP systolic 128–160; BP diastolic 69–80; PULSE 77–96; RESP 16–20; TEMP 36.4–37.2; O2SAT 93–99; BMI 31.8
[2024-11-22] MEDS: Lactated Ringers 1,000 ML 100 ML IVCONT (06:40)
--- NOTE | 2024-11-22 07:04 | MHC.SHP ---
Pre-Procedural Eval Section A - 24 Hr Update-Section A only Date of Service: 11/22/24 The patient is an INPATIENT: No The patient has been examined within 24 hours of the surgical procedure. The History & Physical has been completed within 30 days and I have reviewed it.: No Section B - Complete if H&P > 30 days Chief Complaint: depression Details of Present Illness: has been fairly stable parkinsons unchanged Relevant Social History: None Allergies: Allergies Allergy/AdvReac Type Severity Reaction Status Date / Time codeine Allergy Intermediate Rash Verified 03/22/24 13:09 Review of Systems Sugical H&P ROS: Negative: Constitution, Cardiovascular and Psychiatric (doing well) and Yes, Specify: Respiratory ( mild sob with exercise), Neurological (mild parkinsons sx tremor) and Gastrointestinal (mild intermittant ) Exam Surgical H&P Exam: Normal: Heart (rr) and Normal: Lungs (clear) and Significant Findings: Neurological (mild rigidity tremor) Plan Diagnosis/Plan: Unchanged I have reviewed the history and physical and performed a pertinent physical examination on my patient. No changes have occurred unless specified. Time Spent With Patient Time: Total time managing care of this patient today ____ minutes.
--- NOTE | 2024-11-22 07:07 | HO.ECTPROC ---
ECT Procedure Note Diagnosis/Treatment Date of Service: 11/22/24 Diagnosis: Major Depressive Disorder Previous ECT Date: 10/23/24 Treatment: Maintenance Interval Clinical Notes: Patient is reportedly doing quite well mood stable he is scheduled to be seen by his neurologist for adjustment of parkinsonian medication. Full affect when seen no cognitive impairment has been doing well with maintenance ECT. ECT completed right temporal left frontal without difficulty Time: Total time managing care of this patient today ____ minutes. ECT Settings Device: THYMATRON DGx Electrode Placement: Rt temporal/ Lt frontal Program/Pulse Width: 0.50 Energy Percent: 85 Seizure Duration By EEG (in seconds): 35 Medications Administration General Anesthetic: Etomidate (14) Muscle Relaxant: Succinylcholine (140) Airway Management Airway Management: Bag Mask Ventilation Treatment Recommendations No Changes Recommended: No change Notes: f/u tx 4-5 weeks Pt Tolerated Procedure w/o Issue: Yes
[2024-11-22] MEDS: Acetaminophen 325 MG TABLET 650 MG PO (08:39)
--- NOTE | 2024-11-22 09:08 | P.CONAN_ITS ---
FORMERLY [facility], [facility] Active Problems Active Problems: All Active Problems Major depressive disorder, recurrent episode, in partial remission with catatonia (Acute) Parkinson's disease without dyskinesia, without mention of fluctuations (Acute) Parkinson's disease (tremor, stiffness, slow motion, unstable posture) (Acute) Major depressive disorder, recurrent episode with mood-congruent psychotic features (Acute) Hypothyroidism (Acute) Vitamin B12 deficiency (Acute) Parkinsonian features (Acute) Crohn's disease (Acute) Past Medical History Medical History Parkinson's disease without dyskinesia, without mention of fluctuations Parkinson's disease (tremor, stiffness, slow motion, unstable posture) Osteoarthritis Crohn's disease Parkinsonian features Vitamin B12 deficiency Hypothyroidism Major depressive disorder, recurrent episode with mood-congruent psychotic features Family History Family History Father Stomach cancer Mother Dementia Family history of problems with anesthesia: No Surgical History Surgical History (Updated 11/22/24 @ 06:37 by Angelique Arevalo RN) History of left knee replacement S/P small bowel resection History of Problems with Anesthesia: No Social History Social History Household Members: Spouse Housing: House Do you presently have visiting nurse or other home services: No Patient Tobacco Use Status: Never used Tobacco Tobacco use type: Cigarette e-Cigarette/Vaping Use: Never Used service: Yes Sexual orientation: Straight/Heterosexual Meds Allergies Allergy/AdvReac Type Severity Reaction Status Date / Time codeine Allergy Intermediate Rash Verified 03/22/24 13:09 Active Medications: Current Medications Lactated Ringer's (Lr) 1,000 mls @ 100 mls/hr IVCONT .Q10H KATHRYN Last Admin: 11/22/24 06:40 Dose: 100 mls/hr Home Medications ?Medication ?Instructions ?Recorded ?Confirmed ?Last Taken ?Type azathioprine 50 mg tablet 200 mg PO DAILY 03/22/24 03/22/24 11/21/24 History cyanocobalamin (vitamin B-12) 100 mcg subcut DAILY 03/22/24 03/22/24 Unknown History 1,000 mcg/mL injection solution lithium carbonate 300 mg tablet 300 mg PO BEDTIME 03/22/24 03/22/24 11/21/24 History venlafaxine 150 mg 300 mg PO DAILY 03/22/24 03/22/24 Unknown History capsule,extended release 24 hr Exam Height,Weight and Vital Signs: Height 5 ft 9 in Weight 97.7 kg Last Vital Signs Temp 98.9 F 11/22/24 08:49 Pulse 77 11/22/24 08:49 Resp 16 11/22/24 08:49 BP 128/70 11/22/24 08:49 Pulse Ox 96 11/22/24 08:49 O2 Del Method Room Air 11/22/24 08:49 O2 Flow Rate 2 11/22/24 08:05 Airway Mallampati Class: III TM Dist: >3cm Neck ROM: Full Assessment and Plan Assessment Anesthesia Assessment: Anesthesia Plan Discussed and Chart Reviewed Final Anesthetic Review Family History of Problems with Anesthesia: No History of Problems with Anesthesia: No NPO: Yes ASA Class: III Final Preanesthetic Review: No Changes in Pt Med Stat, Meds/Allgs Chart Reviewed, Consent Obtained/Reviewed and Anes Risks/Benef Reviewed Patient Risk: Intermediate Procedure Risk: Intermediate Anesthetic Plan Anesthetic Plan: GA Disposition: Standard PACU
== END 2024-11-22 09:16 | disposition home or self-care (01) ==
PROVIDERS: PCP Student in an Organized Health Care Education/Training Program; Visit Provider Psychiatry & Neurology Psychiatry
PROC: (CPT 90870; principal; 2024-11-22 07:00)
DX: F33.2 Major depressive disorder, recurrent severe without psychotic features (principal); G20.A1 Parkinson's disease without dyskinesia, without mention of fluctuations; E53.8 Deficiency of other specified B group vitamins; K50.90 Crohn's disease, unspecified, without complications; E03.9 Hypothyroidism, unspecified; Z79.899 Other long term (current) drug therapy; Z88.5 Allergy status to narcotic agent
CPT/HCPCS: 90870; J0330; J2405

== ENCOUNTER → 2024-11-22 05:38 | Outpatient (BNV) | payer OTHER, SELFPAY | PROVIDERS: PCP Student in an Organized Health Care Education/Training Program; Visit Provider Psychiatry & Neurology Psychiatry | DX: F33.2 Major depressive disorder, recurrent severe without psychotic features (principal) | CPT/HCPCS: 90870 ==

== ENCOUNTER 2025-01-03 05:40 | Day surgery (SDC) | payer OTHER, SELFPAY ==
--- OUTSIDE RECORDS SUMMARY | 2024-11-22 10:08 | XMS_ITS | Clinical Summary ---
Author Organization [facility] Address [address] [place] [address] Care Team Providers Care Flower Stripper Name Role Phone Juany Pereira MD Primary Care Provider [phone] Allergies Active Allergy Reactions Criticality Noted Date [...] age to complete this topic Care Teams Flower Stripper Relationship Specialty Start Date End Date Juany Pereira MD [address] [place] [id number] PCP - General Family Medicine 11/03/22
--- OUTSIDE RECORDS SUMMARY | 2024-11-22 10:08 | XMS_ITS | Clinical Summary ---
Author Organization [facility] Address [address] [place] [address] Phone Care Team Providers Care Juvenile Justice Officer Name Role Phone Juany Pereira MD Primary Care Provider [phone] Allergies Active Allergy Reactions Criticality Noted Date [...] (10 mg total) by mouth. 3 Active Active Problems Problem Noted Date Diagnosed Date Depressive disorder 05/06/2024 Arthralgia 12/07/2020 Overview (05/06/2024): Bilateral knees Insomnia 12/07/2020 Peripheral neuropathy 12/07/2020 Tremor of right hand 12/07/2020 B12 deficiency anemia 07/20/2020 Benign prostate hyperplasia 07/20/2020 Degeneration of cervical intervertebral disc Hyperlipidemia 07/20/2020 Hypothyroidism 07/20/2020 Nephrolithiasis 07/20/2020 Osteoarthritis 07/20/2020 Overview (05/06/2024): Bilateral knees Crohn's disease involving te rminal ileum ([facility] V24, [facility] V28) 07/31/1969 Immunizations Name Administration Dates Next Due Moderna SARS-CoV-2 COVID-19, mRNA, LNP-S, preservative free 10/10/2020,09/06/2020 Zoster recombinant (Shingrix) 19yo and older Surgical History Surgery Date Site/Laterality Comments APPENDECTOMY PROCEDURE: NM APPENDECTOMY COLONOSCOPY 2016 PROCEDURE: HISTORICAL COLONOSCOPY Medical History Medical History Date Comments Depressive disorder DX:Depressiv e disorder Crohn's disease involving te rminal ileum ([facility] V24, [facility] V28) 1969 DX:Crohn's disease in volving terminal ileum (HCC) Hypothyroidism 07/20/2020 DX:Hypothyroidis m [...] Done Comments Cholesterol Screening (Lipid Panel) 07/09/2022 Depression Screening 07/09/2022 Falls Risk Assessment 07/09/2022 Hepatitis C Screening 07/09/2022 Social Influencers of Health Screening 07/09/2022 RSV Immunization Adult Patients (1 - 1-dose 75+ series) 02/28/2024 COVID-19 Vaccine ( season) 2024 07/05/2022, 06/22/2021, 10/10/2020, Additional history exists Colorectal Cancer Screening: Colonoscopy 09/01/2026 09/01/2023 DTaP,Tdap,and Td Vaccines (4 - Td or [...] age to complete this topic Meningococcal B Vaccine Aged Out No l onger eligible based on patient's age to complete this topic RSV Immunization Patients Under 20 months Aged Out No longer eligible based on patient's age to complete this topic Varicella Vaccines Aged Out No longer eligible based on patient's age to complete this topic Insurance ADMINISTRATION Care Teams Juvenile Justice Officer Relationship Specialty Start Date End Date Juany Pereira MD [address] [place] [address] PCP - General 08/03/20
[2025-01-03] VITALS (9 sets, daily range): BP systolic 133–190; BP diastolic 61–86; PULSE 76–91; RESP 16–18; TEMP 36.6–36.9; O2SAT 92–95; BMI 33.1
--- NOTE | 2025-01-03 06:51 | HO.ANESPROP2 ---
[facility] Active Problems Active Problems: All Active Problems Major depressive disorder, recurrent episode, in partial remission with catatonia (Acute) Parkinson's disease without dyskinesia, without mention of fluctuations (Acute) Parkinson's disease (tremor, stiffness, slow motion, unstable posture) (Acute) Major depressive disorder, recurrent episode with mood-congruent psychotic features (Acute) Hypothyroidism (Acute) Vitamin B12 deficiency (Acute) Parkinsonian features (Acute) Crohn's disease (Acute) Past Medical History Medical History Parkinson's disease without dyskinesia, without mention of fluctuations Parkinson's disease (tremor, stiffness, slow motion, unstable posture) Osteoarthritis Crohn's disease Parkinsonian features Vitamin B12 deficiency Hypothyroidism Major depressive disorder, recurrent episode with mood-congruent psychotic features Family History Family History Father Stomach cancer Mother Dementia Family history of problems with anesthesia: No Surgical History Surgical History (Updated 11/22/24 @ 06:37 by Angelique Arevalo RN) History of left knee replacement S/P small bowel resection History of Problems with Anesthesia: No Social History Social History Household Members: Spouse Housing: House Do you presently have visiting nurse or other home services: No Patient Tobacco Use Status: Never used Tobacco Tobacco use type: Cigarette e-Cigarette/Vaping Use: Never Used Advance Directives: No Advance Directives Information Provided: Yes service: Yes Sexual orientation: Straight/Heterosexual Meds Allergies Allergy/AdvReac Type Severity Reaction Status Date / Time codeine Allergy Intermediate Rash Verified 03/22/24 13:09 Home Medications ?Medication ?Instructions ?Recorded ?Confirmed ?Last Taken ?Type azathioprine 50 mg tablet 200 mg PO DAILY 03/22/24 03/22/24 11/21/24 History cyanocobalamin (vitamin B-12) 100 mcg subcut DAILY 03/22/24 03/22/24 Unknown History 1,000 mcg/mL injection solution lithium carbonate 300 mg tablet 300 mg PO BEDTIME 03/22/24 03/22/24 11/21/24 History venlafaxine 150 mg 300 mg PO DAILY 03/22/24 03/22/24 Unknown History capsule,extended release 24 hr Exam Height,Weight and Vital Signs: Height 5 ft 6.5 in Weight 94.347 kg Last Vital Signs Temp 98.1 F 01/03/25 06:31 Pulse 76 01/03/25 06:31 Resp 18 01/03/25 06:31 BP 137/65 01/03/25 06:31 O2 Del Method Room Air 01/03/25 06:31 Airway Mallampati Class: II (missing one tooth) TM Dist: >3cm Neck ROM: Full Heart: rrr Lungs: cta Assessment and Plan Assessment Anesthesia Assessment: Anesthesia Plan Discussed and Chart Reviewed Final Anesthetic Review Family History of Problems with Anesthesia: No History of Problems with Anesthesia: No NPO: Yes ASA Class: III Final Preanesthetic Review: No Changes in Pt Med Stat, Meds/Allgs Chart Reviewed and Consent Obtained/Reviewed Patient Risk: Intermediate Procedure Risk: Intermediate Anesthetic Plan Anesthetic Plan: GA Disposition: Standard PACU
[2025-01-03 07:13] LABS: Anion Gap 12 (12-20); Blood Urea Nitrogen 20 mg/dL (9-16); Calcium 8.9 mg/dL (8.4-10.2); Carbon Dioxide 23 mmol/L (22-29); Chloride 110 mmol/L (96-108); Creatinine Clr Calc Pharmacy 81.7; Estimated Glomerular Filt Rate > 60; Glucose Fasting 104 mg/dL (60-99); Potassium 4.6 mmol/L (3.3-5.1); Sodium 140 mmol/L (135-145)
--- NOTE | 2025-01-03 07:17 | MHC.SHP ---
Pre-Procedural Eval Section A - 24 Hr Update-Section A only Date of Service: 01/03/25 The patient is an INPATIENT: No The patient has been examined within 24 hours of the surgical procedure. The History & Physical has been completed within 30 days and I have reviewed it.: No Section B - Complete if H&P > 30 days Chief Complaint: depression Details of Present Illness: Hx recurrent depression psychosis stable mentally has had inc back pain Relevant Social History: None Present Medications: see Short Stay Collaborative assessment Allergies: Allergies Allergy/AdvReac Type Severity Reaction Status Date / Time codeine Allergy Intermediate Rash Verified 03/22/24 13:09 Review of Systems Sugical H&P ROS: Negative: Constitution, Cardiovascular and Psychiatric (doing ok) and Yes, Specify: Respiratory ( mild sob with exercise), Neurological (parkinsons sx tremor ), Gastrointestinal (mild intermittant ) and Musculoskeletal (back pain gait problems ) Exam Surgical H&P Exam: Normal: Heart (rr) and Normal: Lungs (clear) and Significant Findings: Neurological (mild rigidity tremor) Exam Comment: some inc anxiety Plan Diagnosis/Plan: Unchanged I have reviewed the history and physical and performed a pertinent physical examination on my patient. No changes have occurred unless specified. Time Spent With Patient Time: Total time managing care of this patient today ____ minutes.
--- NOTE | 2025-01-03 07:23 | HO.ECTPROC ---
ECT Procedure Note Diagnosis/Treatment Date of Service: 01/03/25 Diagnosis: Major Depressive Disorder Previous ECT Date: 11/22/24 Treatment: Maintenance Interval Clinical Notes: Patient is at times discouraged regarding his Parkinson's. ECT completed right temporal left frontal without difficulty. Patient in general feeling stable every 4-6 weeks Time: Total time managing care of this patient today ____ minutes. ECT Settings Device: THYMATRON DGx Electrode Placement: Rt temporal/ Lt frontal Program/Pulse Width: 0.50 Energy Percent: 85 Seizure Duration By EEG (in seconds): 66 Medications Administration General Anesthetic: Etomidate (14) Muscle Relaxant: Succinylcholine (140) Airway Management Airway Management: Bag Mask Ventilation Treatment Recommendations No Changes Recommended: No change Notes: f/u tx 4-5 weeks inc succ Pt Tolerated Procedure w/o Issue: Yes
== END 2025-01-03 09:22 | disposition home or self-care (01) ==
PROVIDERS: Nurse Practitioner; PCP Student in an Organized Health Care Education/Training Program; Visit Provider Psychiatry & Neurology Psychiatry
PROC: (CPT 90870; principal; 2025-01-03 07:30)
DX: F33.2 Major depressive disorder, recurrent severe without psychotic features (principal); G20.A1 Parkinson's disease without dyskinesia, without mention of fluctuations; E53.8 Deficiency of other specified B group vitamins; K50.90 Crohn's disease, unspecified, without complications; E03.9 Hypothyroidism, unspecified; Z79.899 Other long term (current) drug therapy; Z88.5 Allergy status to narcotic agent
CPT/HCPCS: 36415; 80048; 90870; J0330; J2405

== ENCOUNTER → 2025-01-03 05:40 | Outpatient (BNV) | payer OTHER, SELFPAY | PROVIDERS: PCP Student in an Organized Health Care Education/Training Program; Visit Provider Psychiatry & Neurology Psychiatry | DX: F33.2 Major depressive disorder, recurrent severe without psychotic features (principal) | CPT/HCPCS: 90870 ==

== ENCOUNTER 2025-02-05 05:41 | Day surgery (SDC) | payer OTHER, SELFPAY ==
[2025-02-05] VITALS (8 sets, daily range): BP systolic 127–176; BP diastolic 71–83; PULSE 77–84; RESP 16–18; TEMP 36.4–36.6; O2SAT 92–98; BMI 31.5
[2025-02-05] MEDS: Lactated Ringers 1,000 ML 80 ML IVCONT (06:17)
--- NOTE | 2025-02-05 06:51 | HO.ANESPROP2 ---
HPI - Anesthesia Eval Consult details Narrative: For ECT PMFSH Active Problems Active Problems: All Active Problems Major depressive disorder, recurrent episode, in partial remission with catatonia (Acute) Parkinson's disease without dyskinesia, without mention of fluctuations (Acute) Parkinson's disease (tremor, stiffness, slow motion, unstable posture) (Acute) Major depressive disorder, recurrent episode with mood-congruent psychotic features (Acute) Hypothyroidism (Acute) Vitamin B12 deficiency (Acute) Parkinsonian features (Acute) Crohn's disease (Acute) Past Medical History Medical History (Updated 02/05/25 @ 07:04 by Manda Lamb RN) History of electroconvulsive therapy Parkinson's disease without dyskinesia, without mention of fluctuations Parkinson's disease (tremor, stiffness, slow motion, unstable posture) Osteoarthritis Crohn's disease Parkinsonian features Vitamin B12 deficiency Hypothyroidism Major depressive disorder, recurrent episode with mood-congruent psychotic features Family History Family History Father Stomach cancer Mother Dementia Family history of problems with anesthesia: No Surgical History Surgical History History of left knee replacement S/P small bowel resection History of Problems with Anesthesia: No Social History Social History Household Members: Spouse Housing: House Do you presently have visiting nurse or other home services: No Patient Tobacco Use Status: Never used Tobacco Tobacco use type: Cigarette e-Cigarette/Vaping Use: Never Used service: Yes Sexual orientation: Straight/Heterosexual Meds Allergies Allergy/AdvReac Type Severity Reaction Status Date / Time codeine Allergy Intermediate Rash Verified 03/22/24 13:09 Active Medications: Current Medications Lactated Ringer's (Lr) 1,000 mls @ 80 mls/hr IVCONT .[id number] KATHRYN Last Admin: 02/05/25 06:17 Dose: 80 mls/hr Home Medications ?Medication ?Instructions ?Recorded ?Confirmed ?Last Taken ?Type azathioprine 50 mg tablet 200 mg PO DAILY 03/22/24 03/22/24 11/21/24 History cyanocobalamin (vitamin B-12) 100 mcg subcut DAILY 03/22/24 03/22/24 Unknown History 1,000 mcg/mL injection solution lithium carbonate 300 mg tablet 300 mg PO BEDTIME 03/22/24 03/22/24 11/21/24 History venlafaxine 150 mg 300 mg PO DAILY 03/22/24 03/22/24 Unknown History capsule,extended release 24 hr Exam Height,Weight and Vital Signs: Height 5 ft 7 in Weight 91.2 kg Last Vital Signs Temp 97.9 F 02/05/25 06:12 Pulse 77 02/05/25 06:12 Resp 18 02/05/25 06:12 BP 144/83 H 02/05/25 06:12 Pulse Ox 98 02/05/25 06:12 O2 Del Method Room Air 02/05/25 06:12 Airway Mallampati Class: II TM Dist: <=3cm Neck ROM: Full Loose/Missing/Broken Teeth: No Heart: ok Lungs: ok Assessment and Plan Assessment Anesthesia Assessment: Anesthesia Plan Discussed and Chart Reviewed Final Anesthetic Review Family History of Problems with Anesthesia: No History of Problems with Anesthesia: No NPO: Yes ASA Class: III Final Preanesthetic Review: No Changes in Pt Med Stat, Meds/Allgs Chart Reviewed, Consent Obtained/Reviewed and Anes Risks/Benef Reviewed Patient Risk: Intermediate Procedure Risk: Intermediate Anesthetic Plan Anesthetic Plan: GA and Agree w/ Assess. and Plan Disposition: Standard PACU
--- NOTE | 2025-02-05 07:07 | MHC.SHP ---
Pre-Procedural Eval Section A - 24 Hr Update-Section A only Date of Service: 02/05/25 The patient is an INPATIENT: No Changes since office visit: No Cold of Flu in the past 2 weeks, No New Medical Problems, No Changes in Medication and No Patient answered all questions The patient has been examined within 24 hours of the surgical procedure. The History & Physical has been completed within 30 days and I have reviewed it.: Yes Section B - Complete if H&P > 30 days Chief Complaint: depression Details of Present Illness: pt reports he's good and mood has remained stable; says Parkinsons seems a little worse Relevant Social History: None Medical History: No relevant PMH Allergies: Allergies Allergy/AdvReac Type Severity Reaction Status Date / Time codeine Allergy Intermediate Rash Verified 03/22/24 13:09 Review of Systems Sugical H&P ROS: Negative: Constitution, Cardiovascular, Respiratory, Psychiatric and Gastrointestinal Exam Surgical H&P Exam: Normal: HEENT (EOMI), Normal: Heart (RRR), Normal: Lungs (CTA b/l throughout) and Normal: Neurological (CN 2-12 grossly intact) Plan Diagnosis/Plan: Unchanged I have reviewed the history and physical and performed a pertinent physical examination on my patient. No changes have occurred unless specified. Time Spent With Patient Time: Total time managing care of this patient today ____ minutes.
--- NOTE | 2025-02-05 07:15 | HO.ECTPROC ---
ECT Procedure Note Diagnosis/Treatment Date of Service: 02/05/25 Diagnosis: Major Depressive Disorder Previous ECT Date: 01/03/25 Treatment: Maintenance Interval Clinical Notes: pt reports mood is good and feels mood remains stable. Ongoing Parkinsons symptoms Time: Total time managing care of this patient today ____ minutes. ECT Settings Device: THYMATRON DGx Electrode Placement: Rt temporal/ Lt frontal Program/Pulse Width: 0.50 Energy Percent: 85 Seizure Duration By EEG (in seconds): 74 By Motor Observation (in seconds): 40 Medications Administration General Anesthetic: Etomidate (14) Muscle Relaxant: Succinylcholine (160) Airway Management Airway Management: Bag Mask Ventilation Treatment Recommendations No Changes Recommended: No change Electrode Placement: Rt temporal/ Lt frontal Program/Pulse Width: 0.50 Energy Percent: 85 Notes: Tolerated procedure Continue with Succ 160mg (increased from previous procedure, up from 140mg) f/u in 4 to 5 weeks for continued maintenance ECT Pt Tolerated Procedure w/o Issue: Yes
== END 2025-02-05 08:45 | disposition home or self-care (01) ==
PROVIDERS: PCP Student in an Organized Health Care Education/Training Program; Visit Provider Psychiatry & Neurology Psychiatry
PROC: (CPT 90870; principal; 2025-02-05 07:00)
DX: F33.2 Major depressive disorder, recurrent severe without psychotic features (principal); G20.A1 Parkinson's disease without dyskinesia, without mention of fluctuations; Z79.899 Other long term (current) drug therapy; Z88.5 Allergy status to narcotic agent
CPT/HCPCS: 90870; J0330; J2405; J2704

== ENCOUNTER → 2025-02-05 05:41 | Outpatient (BNV) | payer OTHER, SELFPAY | PROVIDERS: PCP Student in an Organized Health Care Education/Training Program; Visit Provider Psychiatry & Neurology Psychiatry | DX: F33.2 Major depressive disorder, recurrent severe without psychotic features (principal) | CPT/HCPCS: 90870 ==

== ENCOUNTER 2025-02-17 09:32 | Outpatient (AMB) | payer OTHER, SELFPAY ==
--- NOTE | 2025-02-17 09:53 | MHC.OFFVIS ---
Vital Signs 02/17/25 09:56 Weight 203 lb BP 100/60 Blood Pressure Location Rt brachial Position Sitting Pulse 82 Pulse Source Pulse Oximeter Pulse Oximetry (%) 95 Oxygen Delivery Method Room Air Intake Visit Reasons: 6 mnts f/u for Parkinson's Intake Note: Patient present's follow up for Parkinson's B2B Account Executive Required: No Accompanied by: Spouse Allergies codeine Allergy (Intermediate, Verified 02/17/25 09:57) Rash Medication List - Last Reconciled 02/17/25 by Mago Ernst MD acetaminophen 650 mg (2 x 325 mg) PO Q6H PRN 30 days aripiprazole 30 mg PO DAILY azathioprine 200 mg PO DAILY carbidopa-levodopa 50-200 mg ER 1 tab PO QID cyanocobalamin (vitamin B-12) 100 mcg subcut DAILY docusate sodium 100 mg PO DAILY folic acid 1 mg PO DAILY 30 days lithium carbonate 300 mg PO BEDTIME naproxen 500 mg PO BID oxybutynin chloride ER 10 mg (2 x 5 mg) PO DAILY 30 days sertraline 100 mg PO DAILY venlafaxine ER 300 mg PO DAILY HPI Comments Details: 74y/o male with Parkinsons disease comes for follow up. He was supposed to increase carbidopa/levodopa CR 50 200 qid but he is still taking tid He is slower. He did well with PT he had 1 fall last week- fell out of the bed- he was trying to get out of the bed and fell, He does not have a bed rail.. History from initial visit 02/2024- He was diagnosed about 3 years ago when he presented with right hand tremors. He is currently on carbidopa/levodopa CR 50/200 tid. He has depression , bipolar and is on lithium 300mg qd and on ECT.He denies exposure to neuroleptics. He is on Primidone 50mg 2 1/2 tabs qam and 2tabs qhs Memory- not good, he has word finding difficulty SLeep-used to have nightmares and REM behavior disorder Voice is softer - on therapy He denies swallowing issues No sense of smell His mood is OK His handwriting is poor He has trouble with dressing , eating, showering etc.He has constipation He denies hallucinations.He has occaisonal dizzy spells. [facility] Medical History History of electroconvulsive therapy Parkinson's disease without dyskinesia, without mention of fluctuations Parkinson's disease (tremor, stiffness, slow motion, unstable posture) Osteoarthritis Crohn's disease Parkinsonian features Vitamin B12 deficiency Hypothyroidism Major depressive disorder, recurrent episode with mood-congruent psychotic features Surgical History History of left knee replacement S/P small bowel resection Family History Father Stomach cancer Mother Dementia Social History Household Members: Spouse Housing: House Do you presently have visiting nurse or other home services: No Patient Tobacco Use Status: Never used Tobacco Tobacco use type: Cigarette e-Cigarette/Vaping Use: Never Used service: Yes Sexual orientation: Straight/Heterosexual Physical Exam Vital Signs: Last Vital Signs Pulse 82 02/17/25 09:56 BP 100/60 02/17/25 09:56 Pulse Ox 95 02/17/25 09:56 Oxygen Delivery Method Room Air 02/17/25 09:56 Const General: cooperative and no acute distress Nutritional Appearance: average body habitus Orientation/consciousness: patient oriented x3 HEENT Head: Yes normal to inspection Neck Other: mild antecollis and restricted range of motion Neuro Other: Mild decreased blink and facial expression mild lower lip tremors, tongue tremors , slow tongue movements Voice- severe hypophonia Right UE low amplitude rest tremors Fine Finger movements - severely decreased wanda R>L Alternating hand movements - decreased wanda Hand movements - decreased wanda Foot taps- decreased wanda Mild cog wheel rigidity gait - stooped, mild slowness and decreased arm swing R>L General: patient oriented x3 and no focal motor deficits Cranial nerves: Yes CN's II-XII intact bilaterally, Yes Bilaterally intact EOM present, Yes Normal facial strength present and Yes Midline tongue present Cognition (Neuro): normal cognition Motor exam (neuro): 5/5 motor strength present throughout and Normal motor muscle tone present throughout Coordination: [id number] test normal Assessment & Plan Assessment & Plan (1) Parkinson's disease without dyskinesia, without mention of fluctuations: Code(s): G20.A1 - Parkinson's disease without dyskinesia, without mention of fluctuations Category: Medical Qualifiers: Fluctuating manifestations: without fluctuating manifestations Qualified Code(s): G20.A1 - Parkinson's disease without dyskinesia, without mention of fluctuations Plan Increase sinemet CR 50/200 qid PT for Parkinsons continue speech therapy PATIENT IS NEUROLOGICALLY CLEARED TO HAVE KNEE REPLACEMNT SURERY> Medications: New [Bed Rail] As directed 1 ea 0RF G20.A1 - Parkinson's disease without dyskinesia, without mention of fluctuations Changed From carbidopa-levodopa 50-200 mg ER 1 tab in am, 1 in afternoon, 1 tab in pm 1 tab PO TID 120 tabs 6RF To carbidopa-levodopa 50-200 mg ER 1 tab PO QID 120 tabs 6RF Coding Level of Care Code Est Pt Level 4 (34992) Complex EM visit Add On G2211 Diagnoses Parkinson's disease without dyskinesia or fluctuating manifestations G20.A1 Fluctuating manifestations: without fluctuating manifestations
[2025-02-17 09:56] VITALS: BP 100/60; PULSE 82; O2SAT 95
--- OUTSIDE RECORDS SUMMARY | 2025-02-17 10:07 | XMS_ITS | Encounter Summary ---
Author Organization [facility] Address [address] [place] [address] Care Team Providers Care Dumb Waiter Operator Name Role Phone Juany Pereira MD Primary Care Provider [phone] Reason for Visit * Reason Onset Date Comments Med Refill 01/16/2025 Encounter Details Date Type Department Care Team (Late Contact Info) Description 01/16/2025 Telephone Gastroenterology [facility] 175 [facility] [address] [phone] Joan Almendarez MD [address] [id number] Med Refill Social History Tobacco Use Types [...] 02/28/2025 12:30 PM EDT Office Visit Gastroenterology [facility] 175 [facility] [address] [phone] Joan Almendarez MD [address] [address] documented as of this encounter Visit Diagnoses Not on filedocumented in this encounter Care Teams Dumb Waiter Operator Relationship Specialty Start Date End Date Juany Pereira MD [address] [place] [address] PCP - General 08/03/20 documented as of this encounter
--- OUTSIDE RECORDS SUMMARY | 2025-02-17 10:07 | XMS_ITS | Clinical Summary ---
Author Organization [facility] Address [address] [place] [address] Care Team Providers Care Baker Apprentice Name Role Phone Juany Pereira MD Primary Care Provider [phone] Allergies Active Allergy Reactions Criticality Noted Date [...] age to complete this topic Care Teams Baker Apprentice Relationship Specialty Start Date End Date Juany Pereira MD [address] [place] [address] PCP - General Family Medicine 11/03/22
== END 2025-02-17 10:45 | disposition home or self-care (01) ==
LOC: HO.HSMS 09:33
PROVIDERS: PCP Student in an Organized Health Care Education/Training Program; Visit Provider Psychiatry & Neurology Neurology
DX: G20.A1 Parkinson's disease without dyskinesia, without mention of fluctuations (principal)
CPT/HCPCS: 99214; G2211

== ENCOUNTER → 2025-02-17 09:32 | Outpatient (BNVA) | payer OTHER, SELFPAY | PROVIDERS: PCP Student in an Organized Health Care Education/Training Program; Visit Provider Psychiatry & Neurology Neurology | DX: G20.A1 Parkinson's disease without dyskinesia, without mention of fluctuations (principal) | CPT/HCPCS: 99212 ==

== ENCOUNTER 2025-03-07 05:41 | Day surgery (SDC) | payer OTHER, SELFPAY ==
--- OUTSIDE RECORDS SUMMARY | 2025-02-05 08:05 | XMS_ITS | Clinical Summary ---
Author Organization [facility] Address [address] [place] [address] Care Team Providers Care Customizer Name Role Phone Juany Pereira MD Primary Care Provider [phone] Allergies Active Allergy Reactions Criticality Noted Date [...] 76 12/20/2022 11:34 AM EDT Temperature 36.3 C (97.4 F) 12/20/2022 11:34 AM EDT Respiratory Rate - - Oxygen Saturation 97% [...] 1-dose 75+ series) 02/28/2024 Influenza Vaccine (#1) 2025 Hepatitis B Vaccines Aged Out No long er eligible based on patient's age to complete this topic RSV Ped < 20 months Aged Out No longe r eligible based on patient's age to complete this topic Care Teams Customizer Relationship Specialty Start Date End Date Juany Pereira MD [address] [place] [id number] PCP - General Family Medicine 11/03/22
--- OUTSIDE RECORDS SUMMARY | 2025-02-05 08:05 | XMS_ITS | Encounter Summary ---
Author Organization [facility] Address [id number] [place] [phone] Care Team Providers Care Energy Conservation Specialist Name Role Phone Juany Pereira MD Primary Care Provider [phone] Reason for Visit * Reason Onset Date Comments Med Refill 01/16/2025 Encounter Details Date Type Department Care Team (Late st Contact Info) Description 01/16/[address] [facility] [address] [facility] [address] [place] [phone] Joan Almendarez MD [address] [facility] [address] [facility] [address] [place] [address] Med Refill Social History Tobacco Use Types Packs/Day Years Used Date Smoking Tobacco: Never Smokeless Tobacco: Never Alcohol Use Standard Drinks/Week Comments Not Currently 0 (1 standard drink = 0.6 oz pur e alcohol) Sex and Gender Information Value Date Recorded Sex Assigned at Not on file Legal Sex Male 6:40 PM EST Gender Identity Not on file Sexual Orientation Not on file documented as of this encounter Plan of Treatment Upcoming Encounters Date Type Department Care Team (Late st Contact Info) Description 02/28/2025 12:30 PM EDT Office Visit Gastroenterology [facility] [address] [facility] [address] [place] [address] Joan Almendarez MD 175 [facility] [address] [place], [place] [id number] documented as of this encounter Visit Diagnoses Not on filedocumented in this encounter Care Teams Energy Conservation Specialist Relationship Specialty Start Date End Date Juany Pereira MD [address] [place] [address] PCP - General 08/03/20 documented as of this encounter
[2025-03-07] VITALS (7 sets, daily range): BP systolic 126–139; BP diastolic 62–81; PULSE 75–84; RESP 18–23; TEMP 36.3–36.7; O2SAT 93–99; BMI 31.5
--- NOTE | 2025-03-07 06:50 | HO.ANESPROP2 ---
HPI - Anesthesia Eval Consult details Narrative: For ECT PMFSH Active Problems Active Problems: All Active Problems Major depressive disorder, recurrent episode, in partial remission with catatonia (Acute) Parkinson's disease without dyskinesia, without mention of fluctuations (Acute) Parkinson's disease (tremor, stiffness, slow motion, unstable posture) (Acute) Major depressive disorder, recurrent episode with mood-congruent psychotic features (Acute) Hypothyroidism (Acute) Vitamin B12 deficiency (Acute) Parkinsonian features (Acute) Crohn's disease (Acute) Past Medical History Medical History History of electroconvulsive therapy Parkinson's disease without dyskinesia, without mention of fluctuations Parkinson's disease (tremor, stiffness, slow motion, unstable posture) Osteoarthritis Crohn's disease Parkinsonian features Vitamin B12 deficiency Hypothyroidism Major depressive disorder, recurrent episode with mood-congruent psychotic features Family History Family History Father Stomach cancer Mother Dementia Family history of problems with anesthesia: No Surgical History Surgical History History of left knee replacement S/P small bowel resection History of Problems with Anesthesia: No Social History Social History Household Members: Spouse Housing: House Do you presently have visiting nurse or other home services: No Patient Tobacco Use Status: Never used Tobacco Tobacco use type: Cigarette e-Cigarette/Vaping Use: Never Used Advance Directives: No Advance Directives Information Provided: Yes service: Yes Sexual orientation: Straight/Heterosexual Meds Allergies Allergy/AdvReac Type Severity Reaction Status Date / Time codeine Allergy Intermediate Rash Verified 02/17/25 09:57 Home Medications ?Medication ?Instructions ?Recorded ?Confirmed ?Last Taken ?Type azathioprine 50 mg tablet 200 mg PO DAILY 03/22/24 02/17/25 11/21/24 History cyanocobalamin (vitamin B-12) 100 mcg subcut DAILY 03/22/24 02/17/25 Unknown History 1,000 mcg/mL injection solution lithium carbonate 300 mg tablet 300 mg PO BEDTIME 03/22/24 02/17/25 11/21/24 History venlafaxine 150 mg 300 mg PO DAILY 03/22/24 02/17/25 Unknown History capsule,extended release 24 hr aripiprazole 30 mg tablet 30 mg PO DAILY 02/17/25 02/17/25 Unknown History docusate sodium 100 mg capsule 100 mg PO DAILY 02/17/25 02/17/25 Unknown History naproxen 500 mg tablet 500 mg PO BID 02/17/25 02/17/25 Unknown History sertraline 100 mg tablet 100 mg PO DAILY 02/17/25 02/17/25 Unknown History Exam Height,Weight and Vital Signs: Height 5 ft 7 in Weight 91.172 kg Last Vital Signs Temp 97.6 F 03/07/25 06:37 Pulse 80 03/07/25 06:37 Resp 20 03/07/25 06:37 BP 139/80 03/07/25 06:37 Pulse Ox 99 03/07/25 06:37 O2 Del Method Room Air 03/07/25 06:37 Airway Mallampati Class: II TM Dist: >3cm Neck ROM: Full Loose/Missing/Broken Teeth: No Heart: ok Lungs: ok Assessment and Plan Assessment Anesthesia Assessment: Anesthesia Plan Discussed and Chart Reviewed Final Anesthetic Review Family History of Problems with Anesthesia: No History of Problems with Anesthesia: No NPO: Yes ASA Class: III Final Preanesthetic Review: No Changes in Pt Med Stat, Meds/Allgs Chart Reviewed, Consent Obtained/Reviewed and Anes Risks/Benef Reviewed Patient Risk: Intermediate Procedure Risk: Intermediate Anesthetic Plan Anesthetic Plan: GA and Agree w/ Assess. and Plan Disposition: Standard PACU
--- NOTE | 2025-03-07 07:02 | P.HPSUR_ITS ---
Pre-Procedural Eval Section A - 24 Hr Update-Section A only Date of Service: 03/07/25 Section B - Complete if H&P > 30 days Chief Complaint: depression Allergies: Allergies Allergy/AdvReac Type Severity Reaction Status Date / Time codeine Allergy Intermediate Rash Verified 02/17/25 09:57 Review of Systems Sugical H&P ROS: Negative: Constitution, Cardiovascular, Respiratory, Neur ological, Psychiatric, Allergic/Immunologic, Gastrointestinal, Genitourinary, Musculoskeletal and Eyes/Ears/Nose/Throat Exam Surgical H&P Exam: Normal: HEENT, Normal: Extremities and Normal: Neurological Plan Diagnosis/Plan: Unchanged I have reviewed the history and physical and performed a pertinent physical examination on my patient. No changes have occurred unless specified. Time Spent With Patient Time: Total time managing care of this patient today __35__ minutes.
--- NOTE | 2025-03-07 14:30 | HO.ECTPROC ---
ECT Procedure Note Diagnosis/Treatment Date of Service: 03/07/25 Diagnosis: Major Depressive Disorder Previous ECT Date: 02/05/25 Treatment: Maintenance Interval Clinical Notes: doing well. mood improved and stable. upcoming knee replacement. Time: Total time managing care of this patient today __35__ minutes. ECT Settings Device: THYMATRON DGx Electrode Placement: Rt temporal/ Lt frontal Program/Pulse Width: 0.50 Energy Percent: 85 Seizure Duration By EEG (in seconds): 30 Medications Administration General Anesthetic: Etomidate (14) Muscle Relaxant: Succinylcholine (160) Airway Management Airway Management: Bag Mask Ventilation Treatment Recommendations No Changes Recommended: No change Notes: RTC 04/11 Pt Tolerated Procedure w/o Issue: Yes
== END 2025-03-07 08:35 | disposition home or self-care (01) ==
PROVIDERS: PCP Student in an Organized Health Care Education/Training Program; Visit Provider Psychiatry & Neurology Psychiatry
PROC: (CPT 90870; principal; 2025-03-07 07:00)
DX: F33.2 Major depressive disorder, recurrent severe without psychotic features (principal); G20.A1 Parkinson's disease without dyskinesia, without mention of fluctuations; R73.03 Prediabetes; K50.90 Crohn's disease, unspecified, without complications; E53.8 Deficiency of other specified B group vitamins; Z90.49 Acquired absence of other specified parts of digestive tract; Z79.899 Other long term (current) drug therapy; Z88.5 Allergy status to narcotic agent
CPT/HCPCS: 90870; J0330; J2250; J2405; J2704

== ENCOUNTER → 2025-03-07 05:41 | Outpatient (BNV) | payer OTHER, SELFPAY | PROVIDERS: PCP Student in an Organized Health Care Education/Training Program; Visit Provider Psychiatry & Neurology Psychiatry | DX: F33.2 Major depressive disorder, recurrent severe without psychotic features (principal) | CPT/HCPCS: 90870 ==

== ENCOUNTER 2025-04-18 07:45 | Day surgery (SDC) | payer OTHER, SELFPAY ==
--- OUTSIDE RECORDS SUMMARY | 2025-03-07 09:14 | XMS_ITS | Clinical Summary ---
Author Organization [facility] Address [address] [place] [address] Care Team Providers Care Crown Wheel Assembler Name Role Phone Juany Pereira MD Primary Care Provider [phone] Allergies Active Allergy Reactions Criticality Noted Date [...] Tdap / Td (1 - Tdap) 02/28/1968 Fall Risk Assessment 2014 Shingrix-Zoster Vaccine (2 [...] age to complete this topic Care Teams Crown Wheel Assembler Relationship Specialty Start Date End Date Juany Pereira MD [address] [place] [id number] PCP - General Family Medicine 11/03/22
--- OUTSIDE RECORDS SUMMARY | 2025-03-07 09:14 | XMS_ITS | Encounter Summary ---
Author Organization [facility] [facility] Address [address] [place] [address] Care Team Providers Care Individual Pension Consultant Name Role Phone Juany Pereira MD Primary Care Provider [phone] Reason for Visit * Reason Onset Date Comments Med Refill 01/16/2025 Encounter Details Date Type Department Care Team (Late st Contact Info) Description 01/16/2025 Telephone Gastroenterology - [place] 175 [facility] [address] [phone] Joan Almendarez MD 175 [facility] [address] [place] [address] Med Refill Social History Tobacco Use Types [...] on filedocumented in this encounter Care Teams Individual Pension Consultant Relationship Specialty Start Date End Date Juany Pereira MD PCP - General 08/03/20 documented as of this encounter
[2025-04-18] VITALS (7 sets, daily range): BP systolic 114–164; BP diastolic 71–88; PULSE 73–85; RESP 16–18; TEMP 36.2–36.7; O2SAT 97–100; BMI 25.6
--- NOTE | 2025-04-18 08:35 | HO.ANESPROP2 ---
[facility] Active Problems Active Problems: All Active Problems (Updated 02/17/25 @ 10:24 by Mago Ernst MD) Major depressive disorder, recurrent episode, in partial remission with catatonia (Acute) Parkinson's disease without dyskinesia, without mention of fluctuations (Acute) Parkinson's disease (tremor, stiffness, slow motion, unstable posture) (Acute) Major depressive disorder, recurrent episode with mood-congruent psychotic features (Acute) Hypothyroidism (Acute) Vitamin B12 deficiency (Acute) Parkinsonian features (Acute) Crohn's disease (Acute) Past Medical History Medical History History of electroconvulsive therapy Parkinson's disease without dyskinesia, without mention of fluctuations Parkinson's disease (tremor, stiffness, slow motion, unstable posture) Osteoarthritis Crohn's disease Parkinsonian features Vitamin B12 deficiency Hypothyroidism Major depressive disorder, recurrent episode with mood-congruent psychotic features Family History Family History Father Stomach cancer Mother Dementia Family history of problems with anesthesia: No Surgical History Surgical History History of left knee replacement S/P small bowel resection History of Problems with Anesthesia: No Social History Social History Household Members: Spouse Housing: House Do you presently have visiting nurse or other home services: No Patient Tobacco Use Status: Never used Tobacco Tobacco use type: Cigarette e-Cigarette/Vaping Use: Never Used Advance Directives: No Advance Directives Information Provided: Yes service: Yes Sexual orientation: Straight/Heterosexual Meds Allergies Allergy/AdvReac Type Severity Reaction Status Date / Time codeine Allergy Intermediate Rash Verified 02/17/25 09:57 Active Medications: Current Medications Lactated Ringer's (Lr) 1,000 mls @ 50 mls/hr IVCONT .Q20H KATHRYN Naloxone HCl (Naloxone Hcl 0.4 Mg/Ml Vial) 0.04 mg IVPUSH Q5M PRN PRN Reason: Excessive sedation or RR < 8 Home Medications ?Medication ?Instructions ?Recorded ?Confirmed ?Last Taken ?Type azathioprine 50 mg tablet 200 mg PO DAILY 03/22/24 02/17/25 11/21/24 History cyanocobalamin (vitamin B-12) 100 mcg subcut DAILY 03/22/24 02/17/25 Unknown History 1,000 mcg/mL injection solution lithium carbonate 300 mg tablet 300 mg PO BEDTIME 03/22/24 02/17/25 11/21/24 History venlafaxine 150 mg 300 mg PO DAILY 03/22/24 02/17/25 Unknown History capsule,extended release 24 hr aripiprazole 30 mg tablet 30 mg PO DAILY 02/17/25 02/17/25 Unknown History docusate sodium 100 mg capsule 100 mg PO DAILY 02/17/25 02/17/25 Unknown History naproxen 500 mg tablet 500 mg PO BID 02/17/25 02/17/25 Unknown History sertraline 100 mg tablet 100 mg PO DAILY 02/17/25 02/17/25 Unknown History Exam Height,Weight and Vital Signs: Height 6 ft 1 in Weight 88.042 kg Last Vital Signs Temp 97.1 F 04/18/25 08:06 Pulse 80 04/18/25 08:06 Resp 18 04/18/25 08:06 BP 142/78 H 04/18/25 08:06 Pulse Ox 98 04/18/25 08:06 O2 Del Method Room Air 04/18/25 08:06 Airway Mallampati Class: II (missing one, one cracked left bottom lateral) TM Dist: >3cm Neck ROM: Full Heart: rrr Lungs: cta Assessment and Plan Final Anesthetic Review Family History of Problems with Anesthesia: No History of Problems with Anesthesia: No
--- NOTE | 2025-04-18 08:56 | MHC.SHP ---
Pre-Procedural Eval Section A - 24 Hr Update-Section A only Date of Service: 04/18/25 Section B - Complete if H&P > 30 days Chief Complaint: depression Details of Present Illness: doing ok recent knee replacement Allergies: Allergies Allergy/AdvReac Type Severity Reaction Status Date / Time codeine Allergy Intermediate Rash Verified 02/17/25 09:57 Review of Systems Sugical H&P ROS: Negative: Constitution, Cardiovascular, Respiratory, Neurological, Psychiatric, Allergic/Immunologic, Gastrointestinal, Genitourinary, Musculoskeletal and Eyes/Ears/Nose/Throat Exam Surgical H&P Exam: Normal: HEENT, Normal: Extremities and Normal: Neurological Plan Diagnosis/Plan: Unchanged I have reviewed the history and physical and performed a pertinent physical examination on my patient. No changes have occurred unless specified. Time Spent With Patient Time: Total time managing care of this patient today ____ minutes.
--- NOTE | 2025-04-18 09:11 | HO.ECTPROC ---
ECT Procedure Note Diagnosis/Treatment Date of Service: 04/24/25 Diagnosis: Major Depressive Disorder Previous ECT Date: 03/07/25 Treatment: Maintenance Interval Clinical Notes: doing well. Stable some anxiety PT and pain s/p Knee replacement complete Time: Total time managing care of this patient today 30____ minutes. ECT Settings Device: THYMATRON DGx Electrode Placement: Rt temporal/ Lt frontal Program/Pulse Width: 0.50 Energy Percent: 85 Seizure Duration By EEG (in seconds): 30 Medications Administration General Anesthetic: Etomidate (14) Muscle Relaxant: Succinylcholine (160) Ancillary Medications Miscillaneous Medications: Propofol (30) Airway Management Airway Management: Bag Mask Ventilation Treatment Recommendations No Changes Recommended: No change Notes: RTC may 03 wk Pt Tolerated Procedure w/o Issue: Yes
== END 2025-04-18 10:09 | disposition home or self-care (01) ==
PROVIDERS: PCP Student in an Organized Health Care Education/Training Program; Visit Provider Psychiatry & Neurology Psychiatry
PROC: (CPT 90870; principal; 2025-04-18 09:30)
DX: F33.2 Major depressive disorder, recurrent severe without psychotic features (principal); F41.9 Anxiety disorder, unspecified; G20.A1 Parkinson's disease without dyskinesia, without mention of fluctuations; R73.03 Prediabetes; M25.562 Pain in left knee; Z96.652 Presence of left artificial knee joint; K50.90 Crohn's disease, unspecified, without complications; E53.8 Deficiency of other specified B group vitamins; Z90.49 Acquired absence of other specified parts of digestive tract; Z79.899 Other long term (current) drug therapy; Z88.5 Allergy status to narcotic agent
CPT/HCPCS: 90870; J0330; J2405; J2704

== ENCOUNTER → 2025-04-18 07:45 | Outpatient (BNV) | payer OTHER, SELFPAY | PROVIDERS: PCP Student in an Organized Health Care Education/Training Program; Visit Provider Psychiatry & Neurology Psychiatry | DX: F33.2 Major depressive disorder, recurrent severe without psychotic features (principal) | CPT/HCPCS: 90870 ==

== ENCOUNTER 2025-05-19 05:38 | Day surgery (SDC) | payer OTHER, SELFPAY ==
--- OUTSIDE RECORDS SUMMARY | 2025-04-18 11:01 | XMS_ITS | Clinical Summary ---
Author Organization [facility] Address [address] [place] [address] Care Team Providers Care Nut Tapper Name Role Phone Juany Pereira MD Primary Care Provider [phone] Allergies Active Allergy Reactions Criticality Noted Date [...] age to complete this topic Care Teams Nut Tapper Relationship Specialty Start Date End Date Juany Pereira MD [address] [place] [phone] PCP - General Family Medicine 11/03/22
--- OUTSIDE RECORDS SUMMARY | 2025-04-18 11:01 | XMS_ITS | Encounter Summary ---
[facility] [place] [address] Care Team Providers Care Circuit Breaker Mechanic Name Role Phone Ida Rivera Primary Care Provider [phone] Encounter Details Date Type Department Care Team ([facility] st Contact Info) Description 03/27/2025 Lab Requisition [facility] - Main Lab [address] [facility] [place] [phone] Ida Rivera PA [address] [place] [phone] Encounter for other general examination Social History Tobacco Use Types Packs/Day Years [...] on file documented as of this encounter Procedures Procedure Name Priority Date/Time Associated Diagnosis Comments CBC WITH AUTO DIFFERENTIAL Routine 03/27/2025 6:28 AM EDT Encounter for other general examination CBC AND DIFFERENTIAL Routine 03/27/2025 6:28 AM EDT Encounter for other general examination documented in this encounter Results * (ABNORMAL) CBC auto differential (03/27/2025 6:28 AM EDT) WBC 4.3(L) 4.8 - 10.8 K/mcL LAB HEMETOLOGY METHOD 03/27/2025 11:44 AM [facility] LAB RBC 2.80(L) 4.50 - 5.50 M/mcL LAB HEMETOLOGY METHOD 03/27/2025 11:44 AM [facility] LAB Hemoglobin 9.4(L) 13.5 - 17.5 g/dL LAB HEMETOLOGY METHOD 03/27/2025 11:44 AM [facility] LAB Hematocrit 30.0(L) 42.0 - 54.0 % LAB HEMETOLOGY METHOD 03/27/2025 11:44 AM [facility] LAB MCV 106.4(H) 79.0 - 98.0 FL LAB HEMETOLOGY METHOD 03/27/2025 11:44 AM [facility] LAB MCH 33.3(H) 27.0 - 32.0 pcg LAB HEMETOLOGY METHOD 03/27/2025 11:44 AM [facility] LAB MCHC 31.3(L) 32.0 - 37.0 g/dL LAB HEMETOLOGY METHOD 03/27/2025 11:44 AM [facility] LAB RDW 12.8 11.0 - 15.0 % LAB HEMETOLOGY METHOD 03/27/2025 11:44 AM [facility] LAB Platelets 271 130 - 400 K/[facility] LAB HEMETOLOGY METHOD 03/27/2025 11:44 AM [facility] LAB MPV 9.6 7.0 - 11.0 FL LAB HEMETOLOGY METHOD 03/27/2025 11:44 AM [facility] LAB NRBC 0.0 <1.0 % LAB HEMETOLOGY METHOD 03/27/2025 11:44 AM [facility] LAB NRBC Absolute 0.00 <0.10 K/[facility] LAB HEMETOLOGY METHOD 03/27/2025 11:44 AM [facility] LAB Neutrophils Relative 64.9 % LAB HEMETOLOGY METHOD 03/27/2025 11:44 AM [facility] LAB Lymphocytes Relative 20.3 % LAB HEMETOLOGY METHOD 03/27/2025 11:44 AM [facility] LAB Monocytes Relative 10.3 % LAB HEMETOLOGY METHOD 03/27/2025 11:44 AM [facility] LAB Eosinophils Relative 3.3 % LAB HEMETOLOGY METHOD 03/27/2025 11:44 AM [facility] LAB Basophils Relative 0.5 % LAB HEMETOLOGY METHOD 03/27/2025 11:44 AM [facility] LAB Immature Granulocytes Relative 0.7 % LAB HEMETOLOGY METHOD 03/27/2025 11:44 AM [facility] LAB Neutrophils Absolute 2.79 1.50 - 7.00 K/mcL LAB HEMETOLOGY METHOD 03/27/2025 11:44 AM [facility] LAB Lymphocytes Absolute 0.87(L) 1.00 - 5.00 K/mcL LAB HEMETOLOGY METHOD 03/27/2025 11:44 AM [facility] LAB Monocytes Absolute 0.44 0.20 - 1.00 K/mcL LAB HEMETOLOGY METHOD 03/27/2025 11:44 AM [facility] LAB Eosinophils Absolute 0.14 0.00 - 0.50 K/mcL LAB HEMETOLOGY METHOD 03/27/2025 11:44 AM [facility] LAB Basophils Absolute 0.02 0.00 - 0.20 K/mcL LAB HEMETOLOGY METHOD 03/27/2025 11:44 AM [facility] LAB Immature Granulocytes Absolute 0.03 0.00 - 0.03 K/mcL LAB HEMETOLOGY METHOD 03/27/2025 11:44 AM [facility] LAB Blood Venous blood specimen / Unknown Venipuncture / Unknown 03/27/2025 6:28 AM EDT 03/27/2025 10:58 AM EDT us Ida BISWAS LAB BLOOD ORDERABLES Final Re sult [facility] ([facility]) [facility] [address] [place] [address], documented in this encounter Visit Diagnoses Diagnosis Encounter for other general examination documented in this encounter Care Teams Circuit Breaker Mechanic Relationship Specialty Start Date End Date Ida Rivera PA [address] [place] [phone] PCP - General Physician Law Instructor 03/19/25 documented as of this encounter
--- OUTSIDE RECORDS SUMMARY | 2025-04-18 11:01 | XMS_ITS | Encounter Summary ---
[facility] Organization [facility] [place] [address] Care Team Providers Care Curam Developer Name Role Phone Ida Rivera Primary Care Provider [phone] Encounter Details Date Type Department Care Team (Late st Contact Info) Description 03/31/2025 Lab Requisition [facility] - Main Lab [address] [facility] [place] [phone] Ida Rivera PA [address] [place] [phone] Encounter for other general examination Social History [...] Diagnosis Comments CBC WITH AUTO DIFFERENTIAL Routine 03/31/2025 6:02 AM EDT Encounter for other general examination CBC AND DIFFERENTIAL Routine 03/31/2025 6:02 AM EDT Encounter for other general examination documented in this encounter Results * (ABNORMAL) CBC auto differential (03/31/2025 6:02 AM EDT) WBC 4.8 4.8 - 10.8 K/mcL LAB HEMETOLOGY METHOD 03/31/2025 9:36 AM [facility] LAB RBC 3.00(L) 4.50 - 5.50 M/mcL LAB HEMETOLOGY METHOD 03/31/2025 9:36 AM [facility] LAB Hemoglobin 9.9(L) 13.5 - 17.5 g/dL LAB HEMETOLOGY METHOD 03/31/2025 9:36 AM [facility] LAB Hematocrit 31.9(L) 42.0 - 54.0 % LAB HEMETOLOGY METHOD 03/31/2025 9:36 AM [facility] LAB MCV 106.7(H) 79.0 - 98.0 FL LAB HEMETOLOGY METHOD 03/31/2025 9:36 AM [facility] LAB MCH 33.1(H) 27.0 - 32.0 pcg LAB HEMETOLOGY METHOD 03/31/2025 9:36 AM [facility] LAB MCHC 31.0(L) 32.0 - 37.0 g/dL LAB HEMETOLOGY METHOD 03/31/2025 9:36 AM [facility] LAB RDW 13.0 11.0 - 15.0 % LAB HEMETOLOGY METHOD 03/31/2025 9:36 AM [facility] LAB Platelets 340 130 - 400 K/[facility] LAB HEMETOLOGY METHOD 03/31/2025 9:36 AM [facility] LAB MPV 9.5 7.0 - 11.0 FL LAB HEMETOLOGY METHOD 03/31/2025 9:36 AM [facility] LAB NRBC 0.0 <1.0 % LAB HEMETOLOGY METHOD 03/31/2025 9:36 AM [facility] LAB NRBC Absolute 0.00 <0.10 K/[facility] LAB HEMETOLOGY METHOD 03/31/2025 9:36 AM [facility] LAB Neutrophils Relative 65.6 % LAB HEMETOLOGY METHOD 03/31/2025 9:36 AM [facility] LAB Lymphocytes Relative 18.4 % LAB HEMETOLOGY METHOD 03/31/2025 9:36 AM [facility] LAB Monocytes Relative 11.7 % LAB HEMETOLOGY METHOD 03/31/2025 9:36 AM [facility] LAB Eosinophils Relative 2.9 % LAB HEMETOLOGY METHOD 03/31/2025 9:36 AM [facility] LAB Basophils Relative 0.6 % LAB HEMETOLOGY METHOD 03/31/2025 9:36 AM [facility] LAB Immature Granulocytes Relative 0.8 % LAB HEMETOLOGY METHOD 03/31/2025 9:36 AM [facility] LAB Neutrophils Absolute 3.12 1.50 - 7.00 K/mcL LAB HEMETOLOGY METHOD 03/31/2025 9:36 AM [facility] LAB Lymphocytes Absolute 0.88(L) 1.00 - 5.00 K/mcL LAB HEMETOLOGY METHOD 03/31/2025 9:36 AM [facility] LAB Monocytes Absolute 0.56 0.20 - 1.00 K/mcL LAB HEMETOLOGY METHOD 03/31/2025 9:36 AM [facility] LAB Eosinophils Absolute 0.14 0.00 - 0.50 K/mcL LAB HEMETOLOGY METHOD 03/31/2025 9:36 AM [facility] LAB Basophils Absolute 0.03 0.00 - 0.20 K/mcL LAB HEMETOLOGY METHOD 03/31/2025 9:36 AM [facility] LAB Immature Granulocytes Absolute 0.04(H) 0.00 - 0.03 K/mcL LAB HEMETOLOGY METHOD 03/31/2025 9:36 AM [facility] LAB Blood Venous blood specimen / Unknown Venipuncture / Unknown 03/31/2025 6:02 AM EDT 03/31/2025 8:53 AM EDT us Ida BISWAS LAB BLOOD ORDERABLES Final Re sult [facility] ([facility] [address] [place] [address], documented in this encounter Visit Diagnoses Diagnosis Encounter for other general examination documented in this encounter Care Teams Curam Developer Relationship Specialty Start Date End Date Ida Rivera PA [address] [place] [phone] PCP - General Physician Health Education Director 03/19/25 documented as of this encounter
--- OUTSIDE RECORDS SUMMARY | 2025-04-18 11:01 | XMS_ITS | Clinical Summary ---
Author Organization [address] [facility] Address [address] [place] [address] Phone Care Team Providers Care Film Rental Clerk Name Role Phone Ida Rivera Primary Care Provider [phone] Allergies Active Allergy Reactions Criticality Noted Date [...] Active azaTHIOprine (IMURAN) 50 mg tablet Take 3 tablets (150 mg total) by mouth 1 (one) time each day. 270 each 1 5 08/05/19 26 Active Active Problems Problem Noted Date Diagnosed Date Tremor 02/28/2025 Prediabetes 02/28/2025 Peripheral vascular disease, unspecified ([facility]/ C V24) 02/28/2025 Parkinson's disease ([facility] V24, [facility] V28) 0 02/28/2025 Parkinsonism, unspecified ([facility] V24, [facility] V28) 02/28/2025 Parkinson's disease without dyskinesia, without mention of fluctuations ([facility] V24, [facility] V28) 02/28/2025 Pain in unspecified knee 02/28/2025 Pain in right hip 02/28/2025 Overactive bladder 02/28/2025 Other rosacea 02/28/2025 Other dietary vitamin B12 deficiency anemia 07/2024 Major depressive disorder, r ecurrent, severe with psychotic symptoms ([facility] V24, [facility] V28) 02/28/2025 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 ([facility] V24, [facility] V28) 02/28/2025 Major depressive disorder, recurrent, mild ([facility]/ [facility] V24) 02/28/2025 Ingrowing nail 02/28/2025 History of total left knee replacement Overview (02/28/2025): December 09, 2024 Entered By: ABIGAIL BENSON Comment: 01/26/24 - Dr Magallanes 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 Dysphonia 02/28/2025 Dysphonia 02/28/2025 Obesity 02/28/2025 Class 1 obesity 02/28/2025 Depressive disorder 05/06/2024 Arthralgia 12/07/2020 Overview (05/06/2024): Bilateral knees Insomnia 12/07/2020 Peripheral neuropathy 12/07/2020 Tremor of right hand 12/07/2020 B12 deficiency anemia 07/20/2020 Benign prostate hyperplasia 07/20/2020 Degeneration of cervical intervertebral disc Hyperlipidemia 07/20/2020 Hypothyroidism 07/20/2020 Nephrolithiasis 07/20/2020 Osteoarthritis 07/20/2020 Overview (05/06/2024): Bilateral knees Crohn's disease involving te rminal ileum ([facility] V24, [facility] V28) 07/31/1969 Resolved Problems Problem Noted Date Diagnosed Date Resolved Date Crohn's disease ([facility] V24, [facility] V28) 02/28/2025 03/01/2025 Overview (02/28/2025): Aug 28, 2020 Entered By: ABIGAIL BENSON Comment: of the terminal ileum Encounters Date Type Department Care Team Description 04/01/2025 Lab Requisition [facility] [address] [place] [address] Ida Rivera PA Other care home (current) drug therapy 03/31/2025 Lab Requisition [facility] [address] [place] [address] Ida Rivera PA Encounter for other general examination 03/30/2025 Lab Requisition [facility] [address] [place] [address] Ida Rivera PA Encounter for other general examination 03/29/2025 Lab Requisition [facility] [address] [place] [address] Ida Rivera PA Encounter for other general examination 03/28/2025 Lab Requisition [facility] [address] [place] [address] Ida Rivera PA Encounter for other general examination 03/27/2025 Lab Requisition [facility] [address] [place] [address] Ida Rivera PA Encounter for other general examination 03/26/2025 Lab Requisition [facility] [address] [place] [address] Ida Rivera PA Encounter for other general examination 03/25/2025 Lab Requisition [facility] [address] [place] [address] Ida Rivera PA Encounter for other general examination 03/24/2025 Lab Requisition [facility] [address] [place] [address] Ida Rivera PA Encounter for other general examination 03/23/2025 Lab Requisition [facility] [address] [place] [address] Ida Rivera PA Encounter for other general examination 03/22/2025 Lab Requisition [facility] [address] [place] [address] Ida Rivera PA Encounter for other general examination 03/21/2025 Lab Requisition [facility] [address] [place] [address] Ida Rivera PA Encounter for other general examination 03/20/2025 Lab Requisition [facility] [address] [place] [phone] Ida Rivera PA Encounter for other general examination 03/19/2025 Lab Requisition [facility] [address] [place] [phone] Ida Rivera PA Encounter for other general examination 02/28/2025 12:30 PM EDT Office Visit Gastroenterology [facility] [address] [phone] Joan Almendarez MD Crohn's disease involving terminal ileum (CMS/HCC V24, CMS/HCC V28) (Primary Dx) 02/15/2025 5:29 PM EDT - 02/15/2025 5:[address] [facility] [address] [place] [phone] Tony Mike MD Encounter for wound care (Primary Dx) Discharge Disposition: Home or Self Care 02/10/2025 9:50 AM EDT - 02/10/2025 3:[address] [facility] [address] [place] [phone] Demetrio Villegas MD Head injury, initial encounter (Primary Dx); Fall, initial encounter; Laceration of right eyebrow, initial encounter Discharge Disposition: Home or Self Care 01/16/2025 Telephone Gastroenterology [facility] [address] [phone] Joan Almendarez MD 01/16/2025 Telephone Gastroenterology [facility] [address] [phone] Joan Almendarez MD from Last 3 Months Immunizations Name Administration Dates Next Due Moderna SARS-CoV-2 COVID-19, mRNA, LNP-S, preservative free 10/10/2020,09/06/2020 Tdap Tetanus diptheria acell ular pertussis (Boostrix; Adacel) 7yo and older 02/10/2025 Zoster recombinant (Shingrix) 19yo and older Surgical History Surgery Date Site/Laterality Comments APPENDECTOMY PROCEDURE: MT APPENDECTOMY COLONOSCOPY 2017 PROCEDURE: HISTORICAL COLONOSCOPY Medical History Medical History Date Comments Depressive disorder DX:Depressiv e disorder Crohn's disease involving te rminal ileum ([facility] V24, [facility] V28) 1970 DX:Crohn's disease in volving terminal [...] Sign Reading Time Taken Comments Blood Pressure 116/75 02/28/2025 12:34 PM EDT Pulse 100 02/28/2025 12:34 PM EDT Temperature 36.7 C (98.1 F) 02/15/2025 5:26 PM EDT Respiratory Rate 16 02/15/2025 5:26 PM EDT Oxygen Saturation 97% 02/28/2025 12:34 PM EDT Inhaled Oxygen Concentration - - Weight 89.8 kg (198 lb) 02/28/2025 12:34 PM EDT Height 167.6 cm (5' 6 ) 02/28/2025 12:34 PM EDT Body Mass Index 31.96 02/28/2025 12:34 PM EDT Plan of Treatment Health Maintenance Due Date Last Done Comments Cholesterol Screening (Lipid Panel) 07/09/2022 Falls Risk Assessment 07/09/2022 Hepatitis C Screening 07/09/2022 Social Influencers of Health Screening 07/09/2022 RSV Immunization Adult Patients (1 - 1-dose 75+ series) 02/28/2024 Depression Screening 07/31/2024 COVID-19 Vaccine (5 - 2024- season) 2025 07/05/2022, 06/22/2021, 10/10/2020, Additional history exists Influenza Vaccine (#1) 2025 , 06/27/2023, 05/17/2023, Additional history exists DTaP,Tdap,and Td Vaccines (5 - Td or Tdap) 02/10/2035 02/10/2025, 12/09/2020, 02/25/2011, Additional history exists Pneumococcal Vaccine: 50+ Years Completed 03/14/2017, 04/09/2015, 03/18/2010 Zoster Vaccines Completed 01/11/2021, 07/15/2020 Colorectal Cancer Screening: Colonoscopy Discontinued 09/01/2023 HIB Vaccines Aged Out No longer eligi [...] on patient's age to complete this topic Procedures Procedure Name Priority Date/Time Associated Diagnosis Comments COMPREHENSIVE METABOLIC PANEL Routine 04/01/2025 5:23 AM EDT Other care home (current) drug therapy CBC WITH AUTO DIFFERENTIAL Routine 03/31/2025 6:02 AM EDT Encounter for other general examination CBC AND DIFFERENTIAL Routine 03/31/2025 6:02 AM EDT Encounter for other general examination CBC WITH AUTO DIFFERENTIAL Routine 03/30/2025 6:36 AM EDT Encounter for other general examination CBC AND DIFFERENTIAL Routine 03/30/2025 6:36 AM EDT Encounter for other general examination CBC WITH AUTO DIFFERENTIAL Routine 03/29/2025 6:07 AM EDT Encounter for other general examination CBC AND DIFFERENTIAL Routine 03/29/2025 6:07 AM EDT Encounter for other general examination CBC WITH AUTO DIFFERENTIAL Routine 03/28/2025 6:40 AM EDT Encounter for other general examination CBC AND DIFFERENTIAL Routine 03/28/2025 6:40 AM EDT Encounter for other general examination CBC WITH AUTO DIFFERENTIAL Routine 03/27/2025 6:28 AM EDT Encounter for other general examination CBC AND DIFFERENTIAL Routine 03/27/2025 6:28 AM EDT Encounter for other general examination CBC WITH AUTO DIFFERENTIAL Routine 03/26/2025 5:42 AM EDT Encounter for other general examination CBC AND DIFFERENTIAL Routine 03/26/2025 5:42 AM EDT Encounter for other general examination CBC WITH AUTO DIFFERENTIAL Routine 03/25/2025 6:58 AM EDT Encounter for other general examination CBC AND DIFFERENTIAL Routine 03/25/2025 6:58 AM EDT Encounter for other general examination CBC WITH AUTO DIFFERENTIAL Routine 03/24/2025 5:36 AM EDT Encounter for other general examination CBC AND DIFFERENTIAL Routine 03/24/2025 5:36 AM EDT Encounter for other general examination CBC WITH AUTO DIFFERENTIAL Routine 03/23/2025 6:05 AM EDT Encounter for other general examination CBC AND DIFFERENTIAL Routine 03/23/2025 6:05 AM EDT Encounter for other general examination CBC WITH AUTO DIFFERENTIAL Routine 03/22/2025 5:17 AM EDT Encounter for other general examination CBC AND DIFFERENTIAL Routine 03/22/2025 5:17 AM EDT Encounter for other general examination CBC WITH AUTO DIFFERENTIAL Routine 03/21/2025 5:53 AM EDT Encounter for other general examination CBC AND DIFFERENTIAL Routine 03/21/2025 5:53 AM EDT Encounter for other general examination CBC WITH AUTO DIFFERENTIAL Routine 03/20/2025 6:57 AM EDT Encounter for other general examination CBC AND DIFFERENTIAL Routine 03/20/2025 6:57 AM EDT Encounter for other general examination LAVENDER - EDTA Routine 03/19/2025 5:26 AM EDT Encounter for other general examination MAGNESIUM Routine 03/19/2025 5:26 AM EDT Encounter for other general examination COMPREHENSIVE METABOLIC PANEL Routine 03/19/2025 5:26 AM EDT Encounter for other general examination ECG ANNOTATED 02/12/2025 HC REPAIR WOUND LEVEL 1 Routine 02/10/2025 2:20 PM EDT MT REPAIR INTMD WOUNDS FACE/EARS/EYELIDS/NOSE /LIPS/MUC MEMB 2.6 - 5.0 CM Routine 02/10/2025 2:20 PM EDT TROPONIN I HIGH SENSITIVITY STAT 02/10/2025 12:[address] CERVICAL SPINE WO CONTRAST STAT 02/10/2025 10:[address] HEAD WO CONTRAST STAT 02/10/2025 1 0:38 AM EDT ECG 12-LEAD STAT 02/10/2025 10:21 AM EDT CBC WITH AUTO DIFFERENTIAL STAT 02/10/2025 10:12 AM EDT TROPONIN I HIGH SENSITIVITY STAT 02/10/2025 10:12 AM EDT MAGNESIUM STAT 02/10/2025 10:12 AM EDT BASIC METABOLIC PANEL STAT 02/10/2025 10:12 AM EDT CBC AND DIFFERENTIAL STAT 02/10/2025 10:12 AM EDT POCT GLUCOSE BLOOD Routine 02/10/2025 10 :03 AM EDT COMPLETE BLOOD COUNT Routine 01/28/2025 9:37 AM EDT Crohn's disease involving terminal ileum (CMS/HCC V24, CMS/HCC V28) COMPREHENSIVE METABOLIC PANEL Routine 01/28/2025 9:37 AM EDT Crohn's disease involving terminal ileum (CMS/HCC V24, CMS/HCC V28) C-REACTIVE PROTEIN Routine 01/28/2025 9: 37 AM EDT Crohn's disease involving terminal ileum (CMS/HCC V24, CMS/HCC V28) VITAMIN D 25 HYDROXY Routine 01/28/2025 9:37 AM EDT Crohn's disease involving terminal ileum (CMS/HCC V24, CMS/HCC V28) from Last 3 Months Results * (ABNORMAL) Comprehensive metabolic panel (04/01/2025 5:23 AM EDT) Only the most recent of3 resultswithin the time period is included. Sodium 138 133 - 145 mmol/L LAB CHEMISTRY METHOD 04/01/2025 9:18 AM [facility] Potassium 4.9 3.5 - 5.5 mmol/L LAB CHEMISTRY METHOD 04/01/2025 9:18 AM [facility] Chloride 106 96 - 110 mmol/L LAB CHEMISTRY METHOD 04/01/2025 9:18 AM [facility] CO2 28 21 - 32 mmol/L LAB CHEMISTRY METHOD 04/01/2025 9:18 AM [facility] Anion Gap 4 3 - 11 LAB CHEMISTRY METHOD 04/01/2025 9:18 AM [facility] Glucose 95 70 - 100 mg/dL LAB CHEMISTRY METHOD 04/01/2025 9:18 AM [facility] BUN 14 5 - 25 mg/dL LAB CHEMISTRY METHOD 04/01/2025 9:18 AM [facility] Creatinine 0.97 0.70 - 1.30 mg/dL LAB CHEMISTRY METHOD 04/01/2025 9:18 AM [facility] eGFR 81 >=60 mL/min/1. 73m2 LAB CHEMISTRY METHOD 04/01/2025 9:18 AM [facility] Comment:Calculation based on the Chronic Kidney Disease Epidemiology Collaboration (CKD-EPI) equation refit without adjustment for race. BUN/Creatinine Ratio 14.4 LAB CHEMISTRY METHOD 04/01/2025 9:18 AM [facility] Calcium 8.8 8.5 - 10.5 mg/dL LAB CHEMISTRY METHOD 04/01/2025 9:18 AM [facility] AST (SGOT) 15 10 - 42 unit/L LAB CHEMISTRY METHOD 04/01/2025 9:18 AM EDT [facility] Comment:Results verified by repeat testing ALT (SGPT) 9(L) 10 - 60 unit/L LAB CHEMISTRY METHOD 04/01/2025 9:18 AM [facility] Alkaline Phosphatase 124(H) 42 - 121 unit/L LAB CHEMISTRY METHOD 04/01/2025 9:18 AM EDT [facility] Comment:Results verified by repeat testing Total Protein 5.8(L) 6.0 - 8.0 g/dL LAB CHEMISTRY METHOD 04/01/2025 9:18 AM [facility] Albumin 3.0(L) 3.2 - 5.0 g/dL LAB CHEMISTRY METHOD 04/01/2025 9:18 AM [facility] Total Bilirubin 0.3 0.0 - 1.4 mg/dL LAB CHEMISTRY METHOD 04/01/2025 9:18 AM [facility] Blood Venous blood specimen / Unknown Venipuncture / Unknown 04/01/2025 5:23 AM EDT 04/01/2025 7:13 AM EDT us Ida BISWAS LAB BLOOD ORDERABLES Final Re sult [facility] [address] [place] [address], * (ABNORMAL) CBC auto differential (03/31/2025 6:02 AM EDT) Only the most recent of13 resultswithin the time period is included. WBC 4.8 4.8 - 10.8 K/[facility] LAB HEMETOLOGY METHOD 03/31/2025 9:36 AM [facility] RBC 3.00(L) 4.50 - 5.50 M/[facility] LAB HEMETOLOGY METHOD 03/31/2025 9:36 AM EDT [facility] Hemoglobin 9.9(L) 13.5 - 17.5 g/dL LAB HEMETOLOGY METHOD 03/31/2025 9:36 AM [facility] Hematocrit 31.9(L) 42.0 - 54.0 % LAB HEMETOLOGY METHOD 03/31/2025 9:36 AM [facility] MCV 106.7(H) 79.0 - 98.0 FL LAB HEMETOLOGY METHOD 03/31/2025 9:36 AM [facility] MCH 33.1(H) 27.0 - 32.0 pcg LAB HEMETOLOGY METHOD 03/31/2025 9:36 AM [facility] MCHC 31.0(L) 32.0 - 37.0 g/dL LAB HEMETOLOGY METHOD 03/31/2025 9:36 AM [facility] RDW 13.0 11.0 - 15.0 % LAB HEMETOLOGY METHOD 03/31/2025 9:36 AM [facility] Platelets 340 130 - 400 K/mcL LAB HEMETOLOGY METHOD 03/31/2025 9:36 AM [facility] MPV 9.5 7.0 - 11.0 FL LAB HEMETOLOGY METHOD 03/31/2025 9:36 AM [facility] NRBC 0.0 <1.0 % LAB HEMETOLOGY METHOD 03/31/2025 9:36 AM [facility] NRBC Absolute 0.00 <0.10 K/mcL LAB HEMETOLOGY METHOD 03/31/2025 9:36 AM [facility] Neutrophils Relative 65.6 % LAB HEMETOLOGY METHOD 03/31/2025 9:36 AM [facility] Lymphocytes Relative 18.4 % LAB HEMETOLOGY METHOD 03/31/2025 9:36 AM [facility] Monocytes Relative 11.7 % LAB HEMETOLOGY METHOD 03/31/2025 9:36 AM EDT [facility] Eosinophils Relative 2.9 % LAB HEMETOLOGY METHOD 03/31/2025 9:36 AM EDT [facility] Basophils Relative 0.6 % LAB HEMETOLOGY METHOD 03/31/2025 9:36 AM EDT [facility] Immature Granulocytes Relative 0.8 % LAB HEMETOLOGY METHOD 03/31/2025 9:36 AM EDT [facility] Neutrophils Absolute 3.12 1.50 - 7.00 K/mcL LAB HEMETOLOGY METHOD 03/31/2025 9:36 AM EDT [facility] Lymphocytes Absolute 0.88(L) 1.00 - 5.00 K/mcL LAB HEMETOLOGY METHOD 03/31/2025 9:36 AM EDT [facility] Monocytes Absolute 0.56 0.20 - 1.00 K/mcL LAB HEMETOLOGY METHOD 03/31/2025 9:36 AM EDT [facility] Eosinophils Absolute 0.14 0.00 - 0.50 K/mcL LAB HEMETOLOGY METHOD 03/31/2025 9:36 AM EDT [facility] Basophils Absolute 0.03 0.00 - 0.20 K/mcL LAB HEMETOLOGY METHOD 03/31/2025 9:36 AM EDT [facility] Immature Granulocytes Absolute 0.04(H) 0.00 - 0.03 K/mcL LAB HEMETOLOGY METHOD 03/31/2025 9:36 AM EDT [facility] Blood Venous blood specimen / Unknown Venipuncture / Unknown 03/31/2025 6:02 AM EDT 03/31/2025 8:53 AM EDT us Ida BISWAS LAB BLOOD ORDERABLES Final Re sult [facility] [address] [place] [address], [place] [phone] * Lavender tube (03/19/2025 5:26 AM EDT) [facility] Extra Tube Hold for add-ons. 03/19/2025 9:01 AM EDT [facility] Comment:Auto resulted. Blood Venous blood specimen / Unknown Venipuncture / Unknown 03/19/2025 5:26 AM EDT 03/19/2025 7:31 AM EDT Ida BISWAS LAB BLOOD ORDERABLES Final Re sult Performing Organization Address [facility] de Phone Number [facility] [address] [place] [address], * Magnesium (03/19/2025 5:26 AM EDT) Only the most recent of2 resultswithin the time period is included. [facility] Magnesium 2.1 1.9 - 2.6 mg/dL LAB CHEMISTRY METHOD 03/19/2025 10:02 AM EDT [facility] Blood Venous blood specimen / Unknown Venipuncture / Unknown 03/19/2025 5:26 AM EDT 03/19/2025 7:31 AM EDT Ida BISWAS LAB BLOOD ORDERABLES Final Re sult Performing Organization Address [facility]/ZIP Co de Phone Number [facility] [address] [place] [address], [place] [phone] * ECG-Annotated (02/12/2025) Provider Onbase ECG ORDERABLES Final Result * MT REPAIR INTMD WOUNDS FACE/EARS/EYELIDS/NOSE/LIPS/MUC MEMB 2.6 - 5.0 CM, HC REPAIR WOUND LEVEL 1 (02/10/2025 2:20 PM EDT) Narrative Demetrio Villegas MD - 02/10/2025 2:20 PM EDT Demetrio Villegas MD 02/11/2025 5:49 PM Laceration Repair Date/Time: 02/10/2025 2:20 PM Performed by: Demetrio Villegas MD Authorized by: Demetrio Villegas MD Consent: Consent obtained: Verbal Risks discussed: Pain, infection and poor cosmetic result [place] protocol: Procedure explained and questions answered to patient or proxy's satisfaction: yes Patient identity confirmed: Verbally with patient Anesthesia: Anesthesia method: Local infiltration Local anesthetic: Lidocaine 1% WITH epi Laceration details: Location: Face Face location: R eyebrow Length (cm): 4.5 Depth (mm): 15 Pre-procedure details: Preparation: Patient was prepped and draped in usual sterile fashion and imaging obtained to evaluate for foreign bodies Exploration: Limited defect created (wound extended): yes Hemostasis achieved with: Direct pressure Wound exploration: wound explored through full range of motion Wound extent: areolar tissue violated Wound extent: no fascia violation noted, no muscle damage noted, no nerve damage noted, no tendon damage noted and no underlying fracture noted Contaminated: no Treatment: Area cleansed with: Povidone-iodine and saline Amount of cleaning: Extensive Irrigation solution: Sterile saline Irrigation volume: 150 Irrigation method: Pressure wash Debridement: Minimal Undermining: None Scar revision: yes Skin repair: Repair method: Sutures Suture size: 6-0 Suture material: Nylon Suture technique: Simple interrupted Number of sutures: 9 Approximation: Approximation: Close Repair type: Repair type: Intermediate Post-procedure details: Dressing: Antibiotic ointment and adhesive bandage Procedure completion: Tolerated us Demetrio Villegas MD IN CLINIC/BEDSIDE ORDERABLE S Final Result * Troponin I high sensitivity (02/10/2025 12:11 PM EDT) Only the most recent of2 resultswithin the time period is included. High Sensitivity Troponin I 11 <=79 ng/L LAB CHEMISTRY METHOD 02/10/2025 1:42 PM EDT [facility] Blood Venous blood specimen / Unknown Venipuncture / Unknown 02/10/2025 12:11 PM EDT 02/10/2025 12:54 PM EDT [facility] - 02/10/2025 1:42 PM EDT High levels of biotin in samples may falsely decrease hsTroponin values. Use caution when interpreting hsTroponin results in patients taking biotin who exhibit renal impairment (eGFR <60) or in patients taking more than 20 mg/day of biotin. us Demetrio Villegas MD LAB BLOOD ORDERABLES Final Result [facility] [address] [place] [address], * CT Cervical Spine wo Contrast (02/10/2025 10:38 AM EDT) Anatomical Region Laterality Modality Spine, C-spine Computed Tomogra phy 02/10/2025 10:4 3 AM EDT Impressions 02/10/2025 10:47 AM EDT No acute fracture or traumatic subluxation of the cervical spine. -------- FINAL REPORT -------- Dictated By: Christiano Mchugh Dictated Date: 02/10/2025 10:43 ET Assigned Physician: Christiano Mchugh Reviewed and Electronically Signed By: Christiano Mchugh Signed Date: 02/10/2025 10:47 ET Workstation ID: [id number] Transcribed By: Self Edit Transcribed Date: 02/10/2025 10:43 ET Narrative 02/10/2025 10:47 AM EDT PROCEDURE: Noncontrast CT of the cervical spine. HISTORY: Neck pain, acute, no red flags fall + headstrike. TECHNIQUE: Noncontrast CT of the cervical spine with coronal and sagittal reformats. COMPARISON: None. Dose length product: Total for all concurrently acquired exams was 2477 mGy-cm. FINDINGS: There are a few punctate right parotid sialoliths. Mild atherosclerotic calcifications of the carotid bulbs. No other paraspinous soft tissue findings. No prevertebral soft tissue swelling or CT evidence of an acute epidural hematoma. Visualized portions of the skull base are normal. Bones appear demineralized. No fracture. Normal alignment. Degenerative changes of the cervical spine, most prominent at C5-6 where a focal right central disc osteophyte complex results in mild right-sided spinal stenosis. Procedure Note Christiano Mchugh MD - 02/10/2025 PROCEDURE: Noncontrast CT of the cervical spine. HISTORY: Neck pain, acute, no red flags fall + headstrike. TECHNIQUE: Noncontrast CT of the cervical spine with coronal and sagittalreformats. COMPARISON: None. Dose length product: Total for all concurrently acquired exams was 2477mGy-cm. FINDINGS: There are a few punctate right parotid sialoliths. Mild atheroscleroticcalcifications of the carotid bulbs. No other paraspinous soft tissuefindings. No prevertebral soft tissue swelling or CT evidence of an acuteepidural hematoma. Visualized portions of the skull base are normal. Bones appear demineralized. No fracture. Normal alignment. Degenerative changes of the cervical spine, most prominent at C5-6 where afocal right central disc osteophyte complex results in mild right-sidedspinal stenosis. IMPRESSION: No acute fracture or traumatic subluxation of the cervical spine. -------- FINAL REPORT -------- Dictated By: Christiano Mchugh Dictated Date: 02/10/2025 10:43 ET Assigned Physician: Christiano Mchugh Reviewed and Electronically Signed By: Christiano Mchugh Signed Date: 02/10/2025 10:47 ET Workstation ID: [id number] Transcribed By: Self Edit Transcribed Date: 02/10/2025 10:43 ET us Demetrio Villegas MD IMG CT PROCEDURES Final Res ult * CT Head wo Contrast (02/10/2025 10:38 AM EDT) Anatomical Region Laterality Modality Head and Neck Computed Tomogra phy 02/10/2025 10:4 1 AM EDT Impressions 02/10/2025 10:43 AM EDT No acute intracranial findings. -------- FINAL REPORT -------- Dictated By: Christiano Mchugh Dictated Date: 02/10/2025 10:41 ET Assigned Physician: Christiano Mchugh Reviewed and Electronically Signed By: Christiano Mchugh Signed Date: 02/10/2025 10:43 ET Workstation ID: [id number] Transcribed By: Self Edit Transcribed Date: 02/10/2025 10:41 ET Narrative 02/10/2025 10:43 AM EDT PROCEDURE: Noncontrast head CT. HISTORY: Dizziness, non-specific. COMPARISON: None. TECHNIQUE: Noncontrast head CT with coronal and sagittal reformats. Dose length product: Total for all concurrently acquired exams was 2477 mGy-cm. FINDINGS: BRAIN: No hemorrhage, edema, mass, or extra-axial fluid collection. No CT evidence of an acute large vessel infarct. Ventricles and sulci are age commensurate. Patchy hypoattenuation in the supratentorial white matter suggesting mild chronic microvascular ischemic disease. ORBITS: Normal. SINUSES/MASTOIDS: Partially pneumatized right anterior clinoid which communicates with the sphenoid sinus. CALVARIUM: Normal. OTHER: The skull base soft tissues are normal. Procedure Note Christiano Mchugh MD - 02/10/2025 PROCEDURE: Noncontrast head CT. HISTORY: Dizziness, non-specific. COMPARISON: None. TECHNIQUE: Noncontrast head CT with coronal and sagittal reformats. Dose length product: Total for all concurrently acquired exams was 2477mGy-cm. FINDINGS: BRAIN: No hemorrhage, edema, mass, or extra-axial fluid collection. No CTevidence of an acute large vessel infarct. Ventricles and sulci are agecommensurate. Patchy hypoattenuation in the supratentorial white mattersuggesting mild chronic microvascular ischemic disease. ORBITS: Normal. SINUSES/MASTOIDS: Partially pneumatized right anterior clinoid whichcommunicates with the sphenoid sinus. CALVARIUM: Normal. OTHER: The skull base soft tissues are normal. IMPRESSION: No acute intracranial findings. -------- FINAL REPORT -------- Dictated By: Christiano Mchugh Dictated Date: 02/10/2025 10:41 ET Assigned Physician: Christiano Mchugh Reviewed and Electronically Signed By: Christiano Mchugh Signed Date: 02/10/2025 10:43 ET Workstation ID: [id number] Transcribed By: Self Edit Transcribed Date: 02/10/2025 10:41 ET Demetrio Villegas MD IMG CT PROCEDURES Final Res ult * ECG 12 lead (02/10/2025 10:21 AM EDT) Ventricular Rate ECG 77 BPM GEMUSE Atrial Rate 77 BPM GEMUSE P-R Interval 148 ms GEMUSE QRS Duration 90 ms GEMUSE Q-T Interval 378 ms GEMUSE QTc 427 ms GEMUSE P Wave [place] 19 degrees GEMUSE R [place] 24 degrees GEMUSE T [place] 51 degrees GEMUSE ECG Interpretation Normal sinus rhythm with sinus arrhythmia No previous ECGs available Confirmed by LIAT MCALLISTER ([id number]) on 02/11/2025 6:59:17 AM GEMUSE 02/10/2025 10:2 1 AM EDT 02/11/2025 6:59 AM EDT us Demetrio Villegas MD ECG ORDERABLES Final Resul t GEMUSE * (ABNORMAL) Basic metabolic panel (02/10/2025 10:12 AM EDT) Pathologist [facility] Sodium 139 133 - 145 mmol/L LAB CHEMISTRY METHOD 02/10/2025 10:49 AM EDT [facility] Potassium 4.5 3.5 - 5.5 mmol/L LAB CHEMISTRY METHOD 02/10/2025 10:49 AM EDT [facility] Chloride 107 96 - 110 mmol/L LAB CHEMISTRY METHOD 02/10/2025 10:49 AM EDT [facility] CO2 28 21 - 32 mmol/L LAB CHEMISTRY METHOD 02/10/2025 10:49 AM EDT [facility] Anion Gap 4 3 - 11 LAB CHE[facility]STR[facility] Glucose 119(H) 70 - 100 mg/dL LAB CHEMISTRY METHOD 02/10/2025 10:49 AM EDT [facility] BUN 19 5 - 25 mg/dL LAB CHEMISTRY METHOD 02/10/2025 10:49 AM EDT [facility] Creatinine 1.10 0.70 - 1.30 mg/dL LAB CHEMISTRY METHOD 02/10/2025 10:49 AM EDT [facility] eGFR 70 >=60 mL/min/1. 73m2 LAB CHEMISTRY METHOD 02/10/2025 10:49 AM EDT [facility] Comment:Calculation based on the Chronic Kidney Disease Epidemiology Collaboration (CKD-EPI) equation refit without adjustment for race. BUN/Creatinine Ratio 17.3 LAB CHEMISTRY METHOD 02/10/2025 10:49 AM EDT [facility] Calcium 9.2 8.5 - 10.5 mg/dL LAB CHEMISTRY METHOD 02/10/2025 10:49 AM EDT [facility] Blood Venous blood specimen / Unknown Venipuncture / Unknown 02/10/2025 10:12 AM EDT 02/10/2025 10:20 AM EDT us Demetrio Villegas MD LAB BLOOD ORDERABLES Final Result [facility] [address] [place] [address], * (ABNORMAL) POCT Glucose, blood (02/10/2025 10:03 AM EDT) Glucose POCT 124(H) 70 - 100 mg/dL 02/10/2025 10:07 AM EDT [facility] Blood Capillary blood specimen / Unknown 02/10/2025 10:03 AM EDT 02/10/2025 10:08 AM EDT us Generic Provider Poct LAB POINT OF CARE TEST DOCKED DEVICE UNSOLICITED RESULTS Final Result [facility] [address] [place] [address], [place] [phone] * Vitamin D 25 hydroxy (01/28/2025 9:37 AM EDT) [facility] Vit D, 25-Hydroxy 36.9 30.0 - 80.0 ng/mL LAB CHEMISTRY METHOD 01/28/2025 5:03 PM EDT [facility] Blood Venous blood specimen / Unknown Venipuncture / Unknown 01/28/2025 9:37 AM EDT 01/28/2025 9:37 AM EDT Joan Almendarez MD LAB BLOOD ORDERABLES Final Result [facility] [address] [place] [address], * (ABNORMAL) Complete blood count (01/28/2025 9:37 AM EDT) [facility] WBC 3.7(L) 4.8 - 10.8 K/mcL LAB HEMETOLOGY METHOD 01/28/2025 2:20 PM EDT [facility] RBC 3.70(L) 4.50 - 5.50 M/mcL LAB HEMETOLOGY METHOD 01/28/2025 2:20 PM EDT [facility] Hemoglobin 12.3(L) 13.5 - 17.5 g/dL LAB HEMETOLOGY METHOD 01/28/2025 2:20 PM EDT [facility] Hematocrit 39.0(L) 42.0 - 54.0 % LAB HEMETOLOGY METHOD 01/28/2025 2:20 PM EDT [facility] MCV 106.8(H) 79.0 - 98.0 FL LAB HEMETOLOGY METHOD 01/28/2025 2:20 PM EDT [facility] MCH 33.7(H) 27.0 - 32.0 pcg LAB HEMETOLOGY METHOD 01/28/2025 2:20 PM EDT [facility] MCHC 31.5(L) 32.0 - 37.0 g/dL LAB HEMETOLOGY METHOD 01/28/2025 2:20 PM EDT [facility] RDW 13.1 11.0 - 15.0 % LAB HEMETOLOGY METHOD 01/28/2025 2:20 PM EDT [facility] Platelets 159 130 - 400 K/mcL LAB HEMETOLOGY METHOD 01/28/2025 2:20 PM EDT [facility] MPV 10.4 7.0 - 11.0 FL LAB HEMETOLOGY METHOD 01/28/2025 2:20 PM EDT [facility] NRBC 0.0 <1.0 % LAB HEMETOLOGY METHOD 01/28/2025 2:20 PM EDT [facility] NRBC Absolute 0.00 <0.10 K/mcL LAB HEMETOLOGY METHOD 01/28/2025 2:20 PM EDT [facility] Blood Venous blood specimen / Unknown Venipuncture / Unknown 01/28/2025 9:37 AM EDT 01/28/2025 9:37 AM EDT Joan Almendarez MD LAB BLOOD ORDERABLES Final Result [facility] [address] [place] [address], * C-reactive protein (01/28/2025 9:37 AM EDT) C-Reactive Protein <0.29 <=0.50 mg/dL LAB CHEMISTRY METHOD 01/28/2025 3:59 PM EDT [facility] Blood Venous blood specimen / Unknown Venipuncture / Unknown 01/28/2025 9:37 AM EDT 01/28/2025 9:37 AM EDT us Joan Almendarez MD LAB BLOOD ORDERABLES Final Result [facility] [address] [place] [address], [place] [phone] from Last 3 Months Insurance [facility] MEDIC[facility] Care Teams Film Rental Clerk Relationship Specialty Start Date End Date Ida Rivera PA [address] [place] [phone] PCP - General Physician Slip Feeder 03/19/25
--- OUTSIDE RECORDS SUMMARY | 2025-04-18 11:01 | XMS_ITS | Encounter Summary ---
Author Organization [facility] [place] [address] Care Team Providers Care University Administrative Assistant Name Role Phone Ida Rivera Primary Care Provider [phone] Encounter Details Date Type Department Care Team ([facility] st Contact Info) Description 03/26/2025 Lab Requisition [facility] - Main Lab [address] [facility] [place] [phone] Ida Rivera PA [address] [place] [phone] Encounter for other general examination Social History [...] Diagnosis Comments CBC WITH AUTO DIFFERENTIAL Routine 03/26/2025 5:42 AM EDT Encounter for other general examination CBC AND DIFFERENTIAL Routine 03/26/2025 5:42 AM EDT Encounter for other general examination documented in this encounter Results * (ABNORMAL) CBC auto differential (03/26/2025 5:42 AM EDT) WBC 4.7(L) 4.8 - 10.8 K/mcL LAB HEMETOLOGY METHOD 03/26/2025 10:59 AM [facility] RBC 2.90(L) 4.50 - 5.50 M/[facility] LAB HEMETOLOGY METHOD 03/26/2025 10:59 AM [facility] Hemoglobin 9.3(L) 13.5 - 17.5 g/dL LAB HEMETOLOGY METHOD 03/26/2025 10:59 AM [facility] Hematocrit 30.7(L) 42.0 - 54.0 % LAB HEMETOLOGY METHOD 03/26/2025 10:59 AM [facility] MCV 107.0(H) 79.0 - 98.0 FL LAB HEMETOLOGY METHOD 03/26/2025 10:59 AM [facility] MCH 32.4(H) 27.0 - 32.0 pcg LAB HEMETOLOGY METHOD 03/26/2025 10:59 AM [facility] MCHC 30.3(L) 32.0 - 37.0 g/dL LAB HEMETOLOGY METHOD 03/26/2025 10:59 AM [facility] RDW 13.0 11.0 - 15.0 % LAB HEMETOLOGY METHOD 03/26/2025 10:59 AM [facility] Platelets 272 130 - 400 K/[facility] LAB HEMETOLOGY METHOD 03/26/2025 10:59 AM [facility] MPV 9.6 7.0 - 11.0 FL LAB HEMETOLOGY METHOD 03/26/2025 10:59 AM [facility] NRBC 0.0 <1.0 % LAB HEMETOLOGY METHOD 03/26/2025 10:59 AM [facility] NRBC Absolute 0.00 <0.10 K/[facility] LAB HEMETOLOGY METHOD 03/26/2025 10:59 AM [facility] Neutrophils Relative 66.7 % LAB HEMETOLOGY METHOD 03/26/2025 10:59 AM [facility] Lymphocytes Relative 17.9 % LAB HEMETOLOGY METHOD 03/26/2025 10:59 AM [facility] Monocytes Relative 10.5 % LAB HEMETOLOGY METHOD 03/26/2025 10:59 AM [facility] Eosinophils Relative 3.2 % LAB HEMETOLOGY METHOD 03/26/2025 10:59 AM [facility] Basophils Relative 0.6 % LAB HEMETOLOGY METHOD 03/26/2025 10:59 AM [facility] Immature Granulocytes Relative 1.1 % LAB HEMETOLOGY METHOD 03/26/2025 10:59 AM [facility] Neutrophils Absolute 3.12 1.50 - 7.00 K/mcL LAB HEMETOLOGY METHOD 03/26/2025 10:59 AM [facility] Lymphocytes Absolute 0.84(L) 1.00 - 5.00 K/mcL LAB HEMETOLOGY METHOD 03/26/2025 10:59 AM [facility] Monocytes Absolute 0.49 0.20 - 1.00 K/mcL LAB HEMETOLOGY METHOD 03/26/2025 10:59 AM [facility] Eosinophils Absolute 0.15 0.00 - 0.50 K/mcL LAB HEMETOLOGY METHOD 03/26/2025 10:59 AM [facility] Basophils Absolute 0.03 0.00 - 0.20 K/mcL LAB HEMETOLOGY METHOD 03/26/2025 10:59 AM [facility] Immature Granulocytes Absolute 0.05(H) 0.00 - 0.03 K/mcL LAB HEMETOLOGY METHOD 03/26/2025 10:59 AM [facility] Blood Venous blood specimen / Unknown Venipuncture / Unknown 03/26/2025 5:42 AM EDT 03/26/2025 9:23 AM EDT us Ida BISWAS LAB BLOOD ORDERABLES Final Re sult [facility] ([facility] [address] [place] [address], documented in this encounter Visit Diagnoses Diagnosis Encounter for other general examination documented in this encounter Care Teams University Administrative Assistant Relationship Specialty Start Date End Date Ida Rivera PA [address] [place] [phone] PCP - General Physician Offset Lithographic Press Setter 03/19/25 documented as of this encounter
--- OUTSIDE RECORDS SUMMARY | 2025-04-18 11:01 | XMS_ITS | Encounter Summary ---
Author Organization [facility] [place] [address] Care Team Providers Care Quarry Supervisor Open Pit Name Role Phone Ida Rivera Primary Care Provider [phone] Encounter Details Date Type Department Care Team ([facility] st Contact Info) Description 03/25/2025 Lab Requisition [facility] - Main Lab [address] [facility] [place] [phone] Ida Rivera PA [address] [place] [phone] Encounter for other general examination Social History [...] Diagnosis Comments CBC WITH AUTO DIFFERENTIAL Routine 03/25/2025 6:58 AM EDT Encounter for other general examination CBC AND DIFFERENTIAL Routine 03/25/2025 6:58 AM EDT Encounter for other general examination documented in this encounter Results * (ABNORMAL) CBC auto differential (03/25/2025 6:58 AM EDT) WBC 4.6(L) 4.8 - 10.8 K/mcL LAB HEMETOLOGY METHOD 03/25/2025 11:28 AM [facility] RBC 2.80(L) 4.50 - 5.50 M/[facility] LAB HEMETOLOGY METHOD 03/25/2025 11:28 AM [facility] Hemoglobin 9.3(L) 13.5 - 17.5 g/dL LAB HEMETOLOGY METHOD 03/25/2025 11:28 AM [facility] Hematocrit 29.5(L) 42.0 - 54.0 % LAB HEMETOLOGY METHOD 03/25/2025 11:28 AM [facility] MCV 105.7(H) 79.0 - 98.0 FL LAB HEMETOLOGY METHOD 03/25/2025 11:28 AM [facility] MCH 33.3(H) 27.0 - 32.0 pcg LAB HEMETOLOGY METHOD 03/25/2025 11:28 AM [facility] MCHC 31.5(L) 32.0 - 37.0 g/dL LAB HEMETOLOGY METHOD 03/25/2025 11:28 AM [facility] RDW 12.6 11.0 - 15.0 % LAB HEMETOLOGY METHOD 03/25/2025 11:28 AM [facility] Platelets 243 130 - 400 K/[facility] LAB HEMETOLOGY METHOD 03/25/2025 11:28 AM [facility] MPV 9.6 7.0 - 11.0 FL LAB HEMETOLOGY METHOD 03/25/2025 11:28 AM [facility] NRBC 0.0 <1.0 % LAB HEMETOLOGY METHOD 03/25/2025 11:28 AM [facility] NRBC Absolute 0.00 <0.10 K/[facility] LAB HEMETOLOGY METHOD 03/25/2025 11:28 AM [facility] Neutrophils Relative 70.3 % LAB HEMETOLOGY METHOD 03/25/2025 11:28 AM [facility] Lymphocytes Relative 16.5 % LAB HEMETOLOGY METHOD 03/25/2025 11:28 AM [facility] Monocytes Relative 9.5 % LAB HEMETOLOGY METHOD 03/25/2025 11:28 AM [facility] Eosinophils Relative 2.6 % LAB HEMETOLOGY METHOD 03/25/2025 11:28 AM [facility] Basophils Relative 0.2 % LAB HEMETOLOGY METHOD 03/25/2025 11:28 AM [facility] Immature Granulocytes Relative 0.9 % LAB HEMETOLOGY METHOD 03/25/2025 11:28 AM [facility] Neutrophils Absolute 3.25 1.50 - 7.00 K/mcL LAB HEMETOLOGY METHOD 03/25/2025 11:28 AM [facility] Lymphocytes Absolute 0.76(L) 1.00 - 5.00 K/mcL LAB HEMETOLOGY METHOD 03/25/2025 11:28 AM [facility] Monocytes Absolute 0.44 0.20 - 1.00 K/mcL LAB HEMETOLOGY METHOD 03/25/2025 11:28 AM [facility] Eosinophils Absolute 0.12 0.00 - 0.50 K/mcL LAB HEMETOLOGY METHOD 03/25/2025 11:28 AM [facility] Basophils Absolute 0.01 0.00 - 0.20 K/mcL LAB HEMETOLOGY METHOD 03/25/2025 11:28 AM [facility] Immature Granulocytes Absolute 0.04(H) 0.00 - 0.03 K/mcL LAB HEMETOLOGY METHOD 03/25/2025 11:28 AM [facility] Blood Venous blood specimen / Unknown Venipuncture / Unknown 03/25/2025 6:58 AM EDT 03/25/2025 10:18 AM EDT us Ida BISWAS LAB BLOOD ORDERABLES Final Re sult [facility] [address] [place] [address], documented in this encounter Visit Diagnoses Diagnosis Encounter for other general examination documented in this encounter Care Teams Quarry Supervisor Open Pit Relationship Specialty Start Date End Date Ida Rivera PA [address] [place] [phone] PCP - General Physician Modeling Analyst 03/19/25 documented as of this encounter
--- OUTSIDE RECORDS SUMMARY | 2025-04-18 11:01 | XMS_ITS | Encounter Summary ---
Author Organization [facility] [address] Care Team Providers Care Wellness Specialist Name Role Phone Ida Rivera Primary Care Provider [phone] Encounter Details Date Type Department Care Team ([facility] st Contact Info) Description 03/28/2025 Lab Requisition [facility] - Main Lab [address] [facility] [place] [phone] Ida Rivera PA [address] [place] [phone] Encounter for other general examination Social History [...] Diagnosis Comments CBC WITH AUTO DIFFERENTIAL Routine 03/28/2025 6:40 AM EDT Encounter for other general examination CBC AND DIFFERENTIAL Routine 03/28/2025 6:40 AM EDT Encounter for other general examination documented in this encounter Results * (ABNORMAL) CBC auto differential (03/28/2025 6:40 AM EDT) WBC 4.4(L) 4.8 - 10.8 K/mcL LAB HEMETOLOGY METHOD 03/28/2025 11:16 AM [facility] RBC 2.80(L) 4.50 - 5.50 M/mcL LAB HEMETOLOGY METHOD 03/28/2025 11:16 AM [facility] Hemoglobin 9.1(L) 13.5 - 17.5 g/dL LAB HEMETOLOGY METHOD 03/28/2025 11:16 AM [facility] Hematocrit 29.4(L) 42.0 - 54.0 % LAB HEMETOLOGY METHOD 03/28/2025 11:16 AM [facility] MCV 104.6(H) 79.0 - 98.0 FL LAB HEMETOLOGY METHOD 03/28/2025 11:16 AM [facility] MCH 32.4(H) 27.0 - 32.0 pcg LAB HEMETOLOGY METHOD 03/28/2025 11:16 AM [facility] MCHC 31.0(L) 32.0 - 37.0 g/dL LAB HEMETOLOGY METHOD 03/28/2025 11:16 AM [facility] RDW 12.8 11.0 - 15.0 % LAB HEMETOLOGY METHOD 03/28/2025 11:16 AM [facility] Platelets 295 130 - 400 K/[facility] LAB HEMETOLOGY METHOD 03/28/2025 11:16 AM [facility] MPV 9.5 7.0 - 11.0 FL LAB HEMETOLOGY METHOD 03/28/2025 11:16 AM [facility] NRBC 0.0 <1.0 % LAB HEMETOLOGY METHOD 03/28/2025 11:16 AM [facility] NRBC Absolute 0.00 <0.10 K/[facility] LAB HEMETOLOGY METHOD 03/28/2025 11:16 AM [facility] Neutrophils Relative 65.2 % LAB HEMETOLOGY METHOD 03/28/2025 11:16 AM [facility] Lymphocytes Relative 20.5 % LAB HEMETOLOGY METHOD 03/28/2025 11:16 AM [facility] Monocytes Relative 9.9 % LAB HEMETOLOGY METHOD 03/28/2025 11:16 AM [facility] Eosinophils Relative 3.0 % LAB HEMETOLOGY METHOD 03/28/2025 11:16 AM [facility] Basophils Relative 0.5 % LAB HEMETOLOGY METHOD 03/28/2025 11:16 AM [facility] Immature Granulocytes Relative 0.9 % LAB HEMETOLOGY METHOD 03/28/2025 11:16 AM [facility] Neutrophils Absolute 2.84 1.50 - 7.00 K/mcL LAB HEMETOLOGY METHOD 03/28/2025 11:16 AM [facility] Lymphocytes Absolute 0.89(L) 1.00 - 5.00 K/mcL LAB HEMETOLOGY METHOD 03/28/2025 11:16 AM [facility] Monocytes Absolute 0.43 0.20 - 1.00 K/mcL LAB HEMETOLOGY METHOD 03/28/2025 11:16 AM [facility] Eosinophils Absolute 0.13 0.00 - 0.50 K/mcL LAB HEMETOLOGY METHOD 03/28/2025 11:16 AM [facility] Basophils Absolute 0.02 0.00 - 0.20 K/mcL LAB HEMETOLOGY METHOD 03/28/2025 11:16 AM [facility] Immature Granulocytes Absolute 0.04(H) 0.00 - 0.03 K/mcL LAB HEMETOLOGY METHOD 03/28/2025 11:16 AM [facility] Blood Venous blood specimen / Unknown Venipuncture / Unknown 03/28/2025 6:40 AM EDT 03/28/2025 10:25 AM EDT us Ida BISWAS LAB BLOOD ORDERABLES Final Re sult [facility] ([facility] [address] [place] [address], documented in this encounter Visit Diagnoses Diagnosis Encounter for other general examination documented in this encounter Care Teams Wellness Specialist Relationship Specialty Start Date End Date Ida Rivera PA [address] [place] [phone] PCP - General Physician Tablet Tester 03/19/25 documented as of this encounter
--- OUTSIDE RECORDS SUMMARY | 2025-04-18 11:01 | XMS_ITS | Encounter Summary ---
Author Organization [facility] Address [address] [place] [address] Care Team Providers Care Flat Lock Machine Operator Name Role Phone Ida Rivera Primary Care Provider [phone] Encounter Details Date Type Department Care Team ([facility] st Contact Info) Description 03/20/2025 Lab Requisition [facility] - Main Lab 299 [facility] [place] [phone] Ida Rivera PA [address] [place] [phone] Encounter for other general examination Social History [...] Diagnosis Comments CBC WITH AUTO DIFFERENTIAL Routine 03/20/2025 6:57 AM EDT Encounter for other general examination CBC AND DIFFERENTIAL Routine 03/20/2025 6:57 AM EDT Encounter for other general examination documented in this encounter Results * (ABNORMAL) CBC auto differential (03/20/2025 6:57 AM EDT) WBC 5.9 4.8 - 10.8 K/mcL LAB HEMETOLOGY METHOD 03/20/2025 10:50 AM [facility] RBC 3.00(L) 4.50 - 5.50 M/mcL LAB HEMETOLOGY METHOD 03/20/2025 10:50 AM [facility] Hemoglobin 9.8(L) 13.5 - 17.5 g/dL LAB HEMETOLOGY METHOD 03/20/2025 10:50 AM [facility] LAB Hematocrit 31.0(L) 42.0 - 54.0 % LAB HEMETOLOGY METHOD 03/20/2025 10:50 AM [facility] MCV 103.0(H) 79.0 - 98.0 FL LAB HEMETOLOGY METHOD 03/20/2025 10:50 AM [facility] LAB MCH 32.6(H) 27.0 - 32.0 pcg LAB HEMETOLOGY METHOD 03/20/2025 10:50 AM [facility] LAB MCHC 31.6(L) 32.0 - 37.0 g/dL LAB HEMETOLOGY METHOD 03/20/2025 10:50 AM [facility] RDW 12.8 11.0 - 15.0 % LAB HEMETOLOGY METHOD 03/20/2025 10:50 AM [facility] Platelets 164 130 - 400 K/mcL LAB HEMETOLOGY METHOD 03/20/2025 10:50 AM [facility] MPV 10.3 7.0 - 11.0 FL LAB HEMETOLOGY METHOD 03/20/2025 10:50 AM [facility] NRBC 0.0 <1.0 % LAB HEMETOLOGY METHOD 03/20/2025 10:50 AM [facility] NRBC Absolute 0.00 <0.10 K/mcL LAB HEMETOLOGY METHOD 03/20/2025 10:50 AM [facility] Neutrophils Relative 75.9 % LAB HEMETOLOGY METHOD 03/20/2025 10:50 AM [facility] Lymphocytes Relative 12.5 % LAB HEMETOLOGY METHOD 03/20/2025 10:50 AM [facility] Monocytes Relative 8.3 % LAB HEMETOLOGY METHOD 03/20/2025 10:50 AM [facility] Eosinophils Relative 2.4 % LAB HEMETOLOGY METHOD 03/20/2025 10:50 AM [facility] Basophils Relative 0.2 % LAB HEMETOLOGY METHOD 03/20/2025 10:50 AM [facility] Immature Granulocytes Relative 0.7 % LAB HEMETOLOGY METHOD 03/20/2025 10:50 AM [facility] Neutrophils Absolute 4.51 1.50 - 7.00 K/mcL LAB HEMETOLOGY METHOD 03/20/2025 10:50 AM [facility] Lymphocytes Absolute 0.74(L) 1.00 - 5.00 K/mcL LAB HEMETOLOGY METHOD 03/20/2025 10:50 AM [facility] Monocytes Absolute 0.49 0.20 - 1.00 K/mcL LAB HEMETOLOGY METHOD 03/20/2025 10:50 AM [facility] Eosinophils Absolute 0.14 0.00 - 0.50 K/mcL LAB HEMETOLOGY METHOD 03/20/2025 10:50 AM [facility] Basophils Absolute 0.01 0.00 - 0.20 K/mcL LAB HEMETOLOGY METHOD 03/20/2025 10:50 AM [facility] Immature Granulocytes Absolute 0.04(H) 0.00 - 0.03 K/mcL LAB HEMETOLOGY METHOD 03/20/2025 10:50 AM [facility] Blood Venous blood specimen / Unknown Venipuncture / Unknown 03/20/2025 6:57 AM EDT 03/20/2025 9:58 AM EDT us Ida BISWAS LAB BLOOD ORDERABLES Final Re [facility]ult [facility] [address] [place] [address], documented in this encounter Visit Diagnoses Diagnosis Encounter for other general examination documented in this encounter Care Teams Flat Lock Machine Operator Relationship Specialty Start Date End Date Ida Rivera PA [address] [place] [phone] PCP - General Physician Human Resources Partner 03/19/25 documented as of this encounter
--- OUTSIDE RECORDS SUMMARY | 2025-04-18 11:01 | XMS_ITS | Encounter Summary ---
Author Organization [facility] Address [address] [place] [address] Care Team Providers Care Inspector Wire Products Name Role Phone Ida Rivera Primary Care Provider [phone] Encounter Details Date Type Department Care Team (Late st Contact Info) Description 04/01/[address] [facility] - Main Lab 299 [facility] [place] [phone] Ida Rivera PA [address] [place] [phone] Other emt intermediate (current) drug therapy Social History Tobacco Use Types Packs/Day Years [...] PANEL Routine 04/01/2025 5:23 AM EDT Other half-way (current) drug therapy documented in this encounter Results * (ABNORMAL) Comprehensive metabolic panel (04/01/2025 5:23 AM EDT) Sodium 138 133 - 145 mmol/L LAB [facility]STR[facility] Potassium 4.9 3.5 - 5.5 mmol/L LAB CHEMISTRY METHOD 04/01/2025 9:18 AM [facility] Chloride 106 96 - 110 mmol/L LAB CHEMISTRY METHOD 04/01/2025 9:18 AM [facility] CO2 28 21 - 32 mmol/L LAB CHEMISTRY METHOD 04/01/2025 9:18 AM [facility] Anion Gap 4 3 - 11 LAB CHEMISTRY METHOD 04/01/2025 9:18 AM [facility] Glucose 95 70 - 100 mg/dL LAB CHEMISTRY METHOD 04/01/2025 9:18 AM [facility] BUN 14 5 - 25 mg/dL LAB CHEMISTRY METHOD 04/01/2025 9:18 AM [facility] Creatinine 0.97 0.70 - 1.30 mg/dL LAB CHEMISTRY METHOD 04/01/2025 9:18 AM [facility] eGFR 81 >=60 mL/min/1. 73m2 LAB CHEMISTRY METHOD 04/01/2025 9:18 AM [facility] Comment:Calculation based on the Chronic Kidney Disease Epidemiology Collaboration (CKD-EPI) equation refit without adjustment for race. BUN/Creatinine Ratio 14.4 LAB CHEMISTRY METHOD 04/01/2025 9:18 AM [facility] Calcium 8.8 8.5 - 10.5 mg/dL LAB CHEMISTRY METHOD 04/01/2025 9:18 AM [facility] AST (SGOT) 15 10 - 42 unit/L LAB CHEMISTRY METHOD 04/01/2025 9:18 AM [facility] Comment:Results verified by repeat testing ALT (SGPT) 9(L) 10 - 60 unit/L LAB CHEMISTRY METHOD 04/01/2025 9:18 AM [facility] Alkaline Phosphatase 124(H) 42 - 121 unit/L LAB CHEMISTRY METHOD 04/01/2025 9:18 AM EDT [facility] Comment:Results verified by repeat testing Total Protein 5.8(L) 6.0 - 8.0 g/dL LAB CHEMISTRY METHOD 04/01/2025 9:18 AM EDT [facility] Albumin 3.0(L) 3.2 - 5.0 g/dL LAB CHEMISTRY METHOD 04/01/2025 9:18 AM EDT [facility] Total Bilirubin 0.3 0.0 - 1.4 mg/dL LAB CHEMISTRY METHOD 04/01/2025 9:18 AM EDT [facility] Blood Venous blood specimen / Unknown Venipuncture / Unknown 04/01/2025 5:23 AM EDT 04/01/2025 7:13 AM EDT us Ida BISWAS LAB BLOOD ORDERABLES Final Re sult [facility] [address] [place] [address], documented in this encounter Visit Diagnoses Diagnosis Other half-way (current) drug therapy documented in this encounter Care Teams Inspector Wire Products Relationship Specialty Start Date End Date Ida Rivera PA [address] [place] [phone] PCP - General Physician Service Operations Manager 03/19/25 documented as of this encounter
--- OUTSIDE RECORDS SUMMARY | 2025-04-18 11:01 | XMS_ITS | Encounter Summary ---
Author Organization [facility] [place] [address] Care Team Providers Care Paint Technician Name Role Phone Ida Rivera Primary Care Provider [phone] Encounter Details Date Type Department Care Team ([facility] st Contact Info) Description 03/30/2025 Lab Requisition [facility] - Main Lab 299 [facility] [place] [phone] Ida Rivera PA [address] [place] [phone] Encounter for other general examination Social History [...] Diagnosis Comments CBC WITH AUTO DIFFERENTIAL Routine 03/30/2025 6:36 AM EDT Encounter for other general examination CBC AND DIFFERENTIAL Routine 03/30/2025 6:36 AM EDT Encounter for other general examination documented in this encounter Results * (ABNORMAL) CBC auto differential (03/30/2025 6:36 AM EDT) WBC 4.6(L) 4.8 - 10.8 K/mcL LAB HEMETOLOGY METHOD 03/30/2025 10:12 AM [facility] RBC 3.00(L) 4.50 - 5.50 M/[facility] LAB HEMETOLOGY METHOD 03/30/2025 10:12 AM [facility] Hemoglobin 9.8(L) 13.5 - 17.5 g/dL LAB HEMETOLOGY METHOD 03/30/2025 10:12 AM [facility] Hematocrit 31.5(L) 42.0 - 54.0 % LAB HEMETOLOGY METHOD 03/30/2025 10:12 AM [facility] MCV 106.1(H) 79.0 - 98.0 FL LAB HEMETOLOGY METHOD 03/30/2025 10:12 AM [facility] MCH 33.0(H) 27.0 - 32.0 pcg LAB HEMETOLOGY METHOD 03/30/2025 10:12 AM [facility] MCHC 31.1(L) 32.0 - 37.0 g/dL LAB HEMETOLOGY METHOD 03/30/2025 10:12 AM [facility] RDW 12.8 11.0 - 15.0 % LAB HEMETOLOGY METHOD 03/30/2025 10:12 AM [facility] Platelets 314 130 - 400 K/[facility] LAB HEMETOLOGY METHOD 03/30/2025 10:12 AM [facility] MPV 9.3 7.0 - 11.0 FL LAB HEMETOLOGY METHOD 03/30/2025 10:12 AM [facility] NRBC 0.0 <1.0 % LAB HEMETOLOGY METHOD 03/30/2025 10:12 AM [facility] NRBC Absolute 0.00 <0.10 K/[facility] LAB HEMETOLOGY METHOD 03/30/2025 10:12 AM [facility] Neutrophils Relative 65.3 % LAB HEMETOLOGY METHOD 03/30/2025 10:12 AM [facility] Lymphocytes Relative 19.2 % LAB HEMETOLOGY METHOD 03/30/2025 10:12 AM [facility] Monocytes Relative 10.8 % LAB HEMETOLOGY METHOD 03/30/2025 10:12 AM [facility] Eosinophils Relative 3.7 % LAB HEMETOLOGY METHOD 03/30/2025 10:12 AM [facility] Basophils Relative 0.4 % LAB HEMETOLOGY METHOD 03/30/2025 10:12 AM [facility] Immature Granulocytes Relative 0.6 % LAB HEMETOLOGY METHOD 03/30/2025 10:12 AM [facility] Neutrophils Absolute 3.02 1.50 - 7.00 K/mcL LAB HEMETOLOGY METHOD 03/30/2025 10:12 AM [facility] Lymphocytes Absolute 0.89(L) 1.00 - 5.00 K/mcL LAB HEMETOLOGY METHOD 03/30/2025 10:12 AM [facility] Monocytes Absolute 0.50 0.20 - 1.00 K/mcL LAB HEMETOLOGY METHOD 03/30/2025 10:12 AM [facility] Eosinophils Absolute 0.17 0.00 - 0.50 K/mcL LAB HEMETOLOGY METHOD 03/30/2025 10:12 AM [facility] Basophils Absolute 0.02 0.00 - 0.20 K/mcL LAB HEMETOLOGY METHOD 03/30/2025 10:12 AM [facility] Immature Granulocytes Absolute 0.03 0.00 - 0.03 K/mcL LAB HEMETOLOGY METHOD 03/30/2025 10:12 AM [facility] Blood Venous blood specimen / Unknown Venipuncture / Unknown 03/30/2025 6:36 AM EDT 03/30/2025 9:33 AM EDT us Ida BISWAS LAB BLOOD ORDERABLES Final Re sult [facility] [address] [place] [address], documented in this encounter Visit Diagnoses Diagnosis Encounter for other general examination documented in this encounter Care Teams Paint Technician Relationship Specialty Start Date End Date Ida Rivera PA [address] [place] [phone] PCP - General Physician Sandfill Operator 03/19/25 documented as of this encounter
--- OUTSIDE RECORDS SUMMARY | 2025-04-18 11:01 | XMS_ITS | Encounter Summary ---
Author Organization [facility] [place] [address] Care Team Providers Care Automatic Grinder Operator Name Role Phone Ida Rivera Primary Care Provider [phone] Encounter Details Date Type Department Care Team ([facility] st Contact Info) Description 03/29/2025 Lab Requisition [facility] - Main Lab 299 [facility] [place] [phone] Ida Rivera PA [address] [place] [phone] Encounter for other general examination Social History [...] Diagnosis Comments CBC WITH AUTO DIFFERENTIAL Routine 03/29/2025 6:07 AM EDT Encounter for other general examination CBC AND DIFFERENTIAL Routine 03/29/2025 6:07 AM EDT Encounter for other general examination documented in this encounter Results * (ABNORMAL) CBC auto differential (03/29/2025 6:07 AM EDT) WBC 4.5(L) 4.8 - 10.8 K/mcL LAB HEMETOLOGY METHOD 03/29/2025 11:[address] [facility] RBC 2.70(L) 4.50 - 5.50 M/mcL LAB HEMETOLOGY METHOD 03/29/2025 11:[address] [facility] Hemoglobin 9.0(L) 13.5 - 17.5 g/dL LAB HEMETOLOGY METHOD 03/29/2025 11:[address] [facility] Hematocrit 29.4(L) 42.0 - 54.0 % LAB HEMETOLOGY METHOD 03/29/2025 11:[address] [facility] MCV 107.7(H) 79.0 - 98.0 FL LAB HEMETOLOGY METHOD 03/29/2025 11:[address] [facility] MCH 33.0(H) 27.0 - 32.0 pcg LAB HEMETOLOGY METHOD 03/29/2025 11:[address] [facility] MCHC 30.6(L) 32.0 - 37.0 g/dL LAB HEMETOLOGY METHOD 03/29/2025 11:[address] [facility] RDW 12.9 11.0 - 15.0 % LAB HEMETOLOGY METHOD 03/29/2025 11:[address] [facility] Platelets 309 130 - 400 K/[facility] LAB HEMETOLOGY METHOD 03/29/2025 11:[address] [facility] MPV 9.4 7.0 - 11.0 FL LAB HEMETOLOGY METHOD 03/29/2025 11:[address] [facility] NRBC 0.0 <1.0 % LAB HEMETOLOGY METHOD 03/29/2025 11:[address] [facility] NRBC Absolute 0.00 <0.10 K/[facility] LAB HEMETOLOGY METHOD 03/29/2025 11:[address] [facility] Neutrophils Relative 66.4 % LAB HEMETOLOGY METHOD 03/29/2025 11:[address] [facility] Lymphocytes Relative 18.6 % LAB HEMETOLOGY METHOD 03/29/2025 11:[address] [facility] Monocytes Relative 10.8 % LAB HEMETOLOGY METHOD 03/29/2025 11:[address] [facility] Eosinophils Relative 2.9 % LAB HEMETOLOGY METHOD 03/29/2025 11:[address] [facility] Basophils Relative 0.4 % LAB HEMETOLOGY METHOD 03/29/2025 11:[address] [facility] Immature Granulocytes Relative 0.9 % LAB HEMETOLOGY METHOD 03/29/2025 11:[address] [facility] Neutrophils Absolute 2.96 1.50 - 7.00 K/mcL LAB HEMETOLOGY METHOD 03/29/2025 11:[address] [facility] Lymphocytes Absolute 0.83(L) 1.00 - 5.00 K/mcL LAB HEMETOLOGY METHOD 03/29/2025 11:[address] [facility] Monocytes Absolute 0.48 0.20 - 1.00 K/mcL LAB HEMETOLOGY METHOD 03/29/2025 11:[address] [facility] Eosinophils Absolute 0.13 0.00 - 0.50 K/mcL LAB HEMETOLOGY METHOD 03/29/2025 11:[address] [facility] Basophils Absolute 0.02 0.00 - 0.20 K/mcL LAB HEMETOLOGY METHOD 03/29/2025 11:[address] [facility] Immature Granulocytes Absolute 0.04(H) 0.00 - 0.03 K/mcL LAB HEMETOLOGY METHOD 03/29/2025 11:[address] [facility] Blood Venous blood specimen / Unknown Venipuncture / Unknown 03/29/2025 6:07 AM EDT 03/29/2025 11:00 AM EDT us Ida BISWAS LAB BLOOD ORDERABLES Final Re sult [facility] [address] [place] [address], documented in this encounter Visit Diagnoses Diagnosis Encounter for other general examination documented in this encounter Care Teams Automatic Grinder Operator Relationship Specialty Start Date End Date Ida Rivera PA [address] [place] [phone] PCP - General Physician Mixer Wet Pour 03/19/25 documented as of this encounter
--- OUTSIDE RECORDS SUMMARY | 2025-04-18 11:01 | XMS_ITS | Encounter Summary ---
Author Organization [facility] [place] [address] Care Team Providers Care Steel Fitter Name Role Phone Ida Rivera Primary Care Provider [phone] Encounter Details Date Type Department Care Team ([facility] st Contact Info) Description 03/19/2025 Lab Requisition [facility] - Main Lab 299 [facility] [place] [phone] Ida Rivera PA [address] [place] [phone] Encounter for other general examination Social History [...] Procedure Name Priority Date/Time Associated Diagnosis Comments LAVENDER - EDTA Routine 03/19/2025 5:26 AM EDT Encounter for other general examination MAGNESIUM Routine 03/19/2025 5:26 AM EDT Encounter for other general examination COMPREHENSIVE METABOLIC PANEL Routine 03/19/2025 5:26 AM EDT Encounter for other general examination documented in this encounter Results * Lavender tube (03/19/2025 5:26 AM EDT) Pathologist [facility] Extra Tube Hold for add-ons. 03/19/2025 9:01 AM EDT [facility] Comment:Auto resulted. Blood Venous blood specimen / Unknown Venipuncture / Unknown 03/19/2025 5:26 AM EDT 03/19/2025 7:31 AM EDT Ida BISWAS LAB BLOOD ORDERABLES Final Re sult [facility] [address] [place] [address], [place] [phone] * Magnesium (03/19/2025 5:26 AM EDT) Pathologist [facility] Magnesium 2.1 1.9 - 2.6 mg/dL LAB CHEMISTRY METHOD 03/19/2025 10:02 AM EDT [facility] Blood Venous blood specimen / Unknown Venipuncture / Unknown 03/19/2025 5:26 AM EDT 03/19/2025 7:31 AM EDT Ida BISWAS LAB BLOOD ORDERABLES Final Re sult [facility] [address] [place] [address], [place] [phone] * (ABNORMAL) Comprehensive metabolic panel (03/19/2025 5:26 AM EDT) [facility] Sodium 136 133 - 145 mmol/L LAB CHEMISTRY METHOD 03/19/2025 10:02 AM EDT [facility] Potassium 4.1 3.5 - 5.5 mmol/L LAB CHEMISTRY METHOD 03/19/2025 10:02 AM EDT [facility] Chloride 102 96 - 110 mmol/L LAB CHEMISTRY METHOD 03/19/2025 10:02 AM [facility] CO2 27 21 - 32 mmol/L LAB CHEMISTRY METHOD 03/19/2025 10:02 AM [facility] Anion Gap 7 3 - 11 LAB CHEMISTRY METHOD 03/19/2025 10:02 AM [facility] Glucose 100 70 - 100 mg/dL LAB CHEMISTRY METHOD 03/19/2025 10:02 AM [facility] BUN 16 5 - 25 mg/dL LAB CHEMISTRY METHOD 03/19/2025 10:02 AM [facility] Creatinine 0.90 0.70 - 1.30 mg/dL LAB CHEMISTRY METHOD 03/19/2025 10:02 AM [facility] eGFR 89 >=60 mL/min/1. 73m2 LAB CHEMISTRY METHOD 03/19/2025 10:02 AM [facility] Comment:Calculation based on the Chronic Kidney Disease Epidemiology Collaboration (CKD-EPI) equation refit without adjustment for race. BUN/Creatinine Ratio 17.8 LAB CHEMISTRY METHOD 03/19/2025 10:02 AM [facility] Calcium 8.5 8.5 - 10.5 mg/dL LAB CHEMISTRY METHOD 03/19/2025 10:02 AM [facility] AST (SGOT) 7(L) 10 - 42 unit/L LAB CHEMISTRY METHOD 03/19/2025 10:02 AM [facility] ALT (SGPT) 7(L) 10 - 60 unit/L LAB CHEMISTRY METHOD 03/19/2025 10:02 AM [facility] Alkaline Phosphatase 64 42 - 121 unit/L LAB CHEMISTRY METHOD 03/19/2025 10:02 AM [facility] Total Protein 5.5(L) 6.0 - 8.0 g/dL LAB CHEMISTRY METHOD 03/19/2025 10:02 AM [facility] Albumin 3.1(L) 3.2 - 5.0 g/dL LAB CHEMISTRY METHOD 03/19/2025 10:02 AM EDT [facility] Total Bilirubin 0.9 0.0 - 1.4 mg/dL LAB CHEMISTRY METHOD 03/19/2025 10:02 AM EDT [facility] Blood Venous blood specimen / Unknown Venipuncture / Unknown 03/19/2025 5:26 AM EDT 03/19/2025 7:31 AM EDT us Ida BISWAS LAB BLOOD ORDERABLES Final Re sult [facility]) [facility] [address] [place] [address], documented in this encounter Visit Diagnoses Diagnosis Encounter for other general examination documented in this encounter Care Teams Steel Fitter Relationship Specialty Start Date End Date Ida Rivera PA [address] [place] [phone] PCP - General Physician Gluing Machine Operator Automatic 03/19/25 documented as of this encounter
--- OUTSIDE RECORDS SUMMARY | 2025-04-18 11:01 | XMS_ITS | Encounter Summary ---
Author Organization [facility] [place] [address] Care Team Providers Care Silk Screen Repairer Name Role Phone Ida Rivera Primary Care Provider [phone] Encounter Details Date Type Department Care Team ([facility] st Contact Info) Description 03/21/2025 Lab Requisition [facility] - Main Lab [address] [facility] [place] [phone] Ida Rivera PA [address] [place] [phone] Encounter for other general examination [...] Diagnosis Comments CBC WITH AUTO DIFFERENTIAL Routine 03/21/2025 5:53 AM EDT Encounter for other general examination CBC AND DIFFERENTIAL Routine 03/21/2025 5:53 AM EDT Encounter for other general examination documented in this encounter Results * (ABNORMAL) CBC auto differential (03/21/2025 5:53 AM EDT) WBC 5.9 4.8 - 10.8 K/mcL LAB HEMETOLOGY METHOD 03/21/2025 10:37 AM [facility] RBC 2.90(L) 4.50 - 5.50 M/[facility] LAB HEMETOLOGY METHOD 03/21/2025 10:37 AM [facility] Hemoglobin 9.5(L) 13.5 - 17.5 g/dL LAB HEMETOLOGY METHOD 03/21/2025 10:37 AM [facility] Hematocrit 30.7(L) 42.0 - 54.0 % LAB HEMETOLOGY METHOD 03/21/2025 10:37 AM [facility] MCV 105.5(H) 79.0 - 98.0 FL LAB HEMETOLOGY METHOD 03/21/2025 10:37 AM [facility] MCH 32.6(H) 27.0 - 32.0 pcg LAB HEMETOLOGY METHOD 03/21/2025 10:37 AM [facility] MCHC 30.9(L) 32.0 - 37.0 g/dL LAB HEMETOLOGY METHOD 03/21/2025 10:37 AM [facility] RDW 12.8 11.0 - 15.0 % LAB HEMETOLOGY METHOD 03/21/2025 10:37 AM [facility] Platelets 198 130 - 400 K/[facility] LAB HEMETOLOGY METHOD 03/21/2025 10:37 AM [facility] MPV 10.3 7.0 - 11.0 FL LAB HEMETOLOGY METHOD 03/21/2025 10:37 AM [facility] NRBC 0.0 <1.0 % LAB HEMETOLOGY METHOD 03/21/2025 10:37 AM [facility] NRBC Absolute 0.00 <0.10 K/[facility] LAB HEMETOLOGY METHOD 03/21/2025 10:37 AM [facility] Neutrophils Relative 71.4 % LAB HEMETOLOGY METHOD 03/21/2025 10:37 AM [facility] Lymphocytes Relative 16.9 % LAB HEMETOLOGY METHOD 03/21/2025 10:37 AM [facility] Monocytes Relative 7.5 % LAB HEMETOLOGY METHOD 03/21/2025 10:37 AM [facility] Eosinophils Relative 3.1 % LAB HEMETOLOGY METHOD 03/21/2025 10:37 AM [facility] Basophils Relative 0.2 % LAB HEMETOLOGY METHOD 03/21/2025 10:37 AM [facility] Immature Granulocytes Relative 0.9 % LAB HEMETOLOGY METHOD 03/21/2025 10:37 AM [facility] Neutrophils Absolute 4.20 1.50 - 7.00 K/mcL LAB HEMETOLOGY METHOD 03/21/2025 10:37 AM [facility] Lymphocytes Absolute 0.99(L) 1.00 - 5.00 K/mcL LAB HEMETOLOGY METHOD 03/21/2025 10:37 AM [facility] Monocytes Absolute 0.44 0.20 - 1.00 K/mcL LAB HEMETOLOGY METHOD 03/21/2025 10:37 AM [facility] Eosinophils Absolute 0.18 0.00 - 0.50 K/mcL LAB HEMETOLOGY METHOD 03/21/2025 10:37 AM [facility] Basophils Absolute 0.01 0.00 - 0.20 K/mcL LAB HEMETOLOGY METHOD 03/21/2025 10:37 AM [facility] Immature Granulocytes Absolute 0.05(H) 0.00 - 0.03 K/mcL LAB HEMETOLOGY METHOD 03/21/2025 10:37 AM [facility] Blood Venous blood specimen / Unknown Venipuncture / Unknown 03/21/2025 5:53 AM EDT 03/21/2025 9:29 AM EDT us Ida BISWAS LAB BLOOD ORDERABLES Final Re sult [facility] [address] [place] [address], documented in this encounter Visit Diagnoses Diagnosis Encounter for other general examination documented in this encounter Care Teams Silk Screen Repairer Relationship Specialty Start Date End Date Ida Rivera PA [address] [place] [phone] PCP - General Physician [employer] 03/19/25 documented as of this encounter
--- OUTSIDE RECORDS SUMMARY | 2025-04-18 11:01 | XMS_ITS | Encounter Summary ---
Author Organization [facility] Address [address] [place] [address] Care Team Providers Care Drug Safety Specialist Name Role Phone Ida Rivera Primary Care Provider Reason for Visit * Reason Onset Date Comments Med Refill 01/16/2025 Encounter Details Date Type Department Care Team ([facility] st Contact Info) Description 01/16/2025 Telephone Gastroenterology - [place] 175 [facility] [address] [phone] Joan Almendarez MD [address] [address] Social History Tobacco Use Types Packs/Day Years [...] on filedocumented in this encounter Care Teams Drug Safety Specialist Relationship Specialty Start Date End Date Ida Rivera PA [address] [place] [phone] PCP - General Physician Investigation Officer 03/19/25 documented as of this encounter
--- OUTSIDE RECORDS SUMMARY | 2025-04-18 11:02 | XMS_ITS | Encounter Summary ---
Author [facility] [place] [address] Care Team Providers Care Upholstery Repairer Name Role Phone Ida Rivera Primary Care Provider [phone] Encounter Details Date Type Department Care Team ([facility] st Contact Info) Description 03/22/2025 Lab Requisition [facility] - Main Lab [address] [facility] [place] [phone] Ida Rivera PA [address] [place] [address] Encounter for other general examination [...] Diagnosis Comments CBC WITH AUTO DIFFERENTIAL Routine 03/22/2025 5:17 AM EDT Encounter for other general examination CBC AND DIFFERENTIAL Routine 03/22/2025 5:17 AM EDT Encounter for other general examination documented in this encounter Results * (ABNORMAL) CBC auto differential (03/22/2025 5:17 AM EDT) WBC 4.6(L) 4.8 - 10.8 K/mcL LAB HEMETOLOGY METHOD 03/22/2025 11:00 AM [facility] LAB RBC 2.90(L) 4.50 - 5.50 M/mcL LAB HEMETOLOGY METHOD 03/22/2025 11:00 AM [facility] LAB Hemoglobin 9.5(L) 13.5 - 17.5 g/dL LAB HEMETOLOGY METHOD 03/22/2025 11:00 AM [facility] LAB Hematocrit 30.4(L) 42.0 - 54.0 % LAB HEMETOLOGY METHOD 03/22/2025 11:00 AM [facility] LAB MCV 106.3(H) 79.0 - 98.0 FL LAB HEMETOLOGY METHOD 03/22/2025 11:00 AM [facility] LAB MCH 33.2(H) 27.0 - 32.0 pcg LAB HEMETOLOGY METHOD 03/22/2025 11:00 AM [facility] LAB MCHC 31.3(L) 32.0 - 37.0 g/dL LAB HEMETOLOGY METHOD 03/22/2025 11:00 AM [facility] LAB RDW 12.9 11.0 - 15.0 % LAB HEMETOLOGY METHOD 03/22/2025 11:00 AM [facility] LAB Platelets 206 130 - 400 K/[facility] LAB HEMETOLOGY METHOD 03/22/2025 11:00 AM [facility] LAB MPV 9.9 7.0 - 11.0 FL LAB HEMETOLOGY METHOD 03/22/2025 11:00 AM [facility] LAB NRBC 0.0 <1.0 % LAB HEMETOLOGY METHOD 03/22/2025 11:00 AM [facility] LAB NRBC Absolute 0.00 <0.10 K/[facility] LAB HEMETOLOGY METHOD 03/22/2025 11:00 AM [facility] LAB Neutrophils Relative 69.1 % LAB HEMETOLOGY METHOD 03/22/2025 11:00 AM [facility] Lymphocytes Relative 18.7 % LAB HEMETOLOGY METHOD 03/22/2025 11:00 AM [facility] Monocytes Relative 7.2 % LAB HEMETOLOGY METHOD 03/22/2025 11:00 AM [facility] Eosinophils Relative 3.7 % LAB HEMETOLOGY METHOD 03/22/2025 11:00 AM [facility] Basophils Relative 0.4 % LAB HEMETOLOGY METHOD 03/22/2025 11:00 AM [facility] LAB Immature Granulocytes Relative 0.9 % LAB HEMETOLOGY METHOD 03/22/2025 11:00 AM [facility] LAB Neutrophils Absolute 3.19 1.50 - 7.00 K/mcL LAB HEMETOLOGY METHOD 03/22/2025 11:00 AM [facility] LAB Lymphocytes Absolute 0.86(L) 1.00 - 5.00 K/mcL LAB HEMETOLOGY METHOD 03/22/2025 11:00 AM [facility] LAB Monocytes Absolute 0.33 0.20 - 1.00 K/mcL LAB HEMETOLOGY METHOD 03/22/2025 11:00 AM [facility] LAB Eosinophils Absolute 0.17 0.00 - 0.50 K/mcL LAB HEMETOLOGY METHOD 03/22/2025 11:00 AM [facility] LAB Basophils Absolute 0.02 0.00 - 0.20 K/mcL LAB HEMETOLOGY METHOD 03/22/2025 11:00 AM [facility] LAB Immature Granulocytes Absolute 0.04(H) 0.00 - 0.03 K/mcL LAB HEMETOLOGY METHOD 03/22/2025 11:00 AM [facility] Blood Venous blood specimen / Unknown Venipuncture / Unknown 03/22/2025 5:17 AM EDT 03/22/2025 9:57 AM EDT us Ida BISWAS LAB BLOOD ORDERABLES Final Re sult [facility] ([facility]) [facility] [address] [place] [address], documented in this encounter Visit Diagnoses Diagnosis Encounter for other general examination documented in this encounter Care Teams Upholstery Repairer Relationship Specialty Start Date End Date Ida Rivera PA [address] [place] [phone] PCP - General Physician Proof Technician 03/19/25 documented as of this encounter
--- OUTSIDE RECORDS SUMMARY | 2025-04-18 11:02 | XMS_ITS | Encounter Summary ---
[facility] [place] [address] Care Team Providers Care Footwear Sales Associate Name Role Phone Ida Rivera Primary Care Provider [phone] Encounter Details Date Type Department Care Team ([facility] st Contact Info) Description 03/24/2025 Lab Requisition [facility] - Main Lab 299 [facility] [place] [phone] Ida Rivera PA [address] [place] [phone] Encounter for other general examination [...] Diagnosis Comments CBC WITH AUTO DIFFERENTIAL Routine 03/24/2025 5:36 AM EDT Encounter for other general examination CBC AND DIFFERENTIAL Routine 03/24/2025 5:36 AM EDT Encounter for other general examination documented in this encounter Results * (ABNORMAL) CBC auto differential (03/24/2025 5:36 AM EDT) WBC 5.0 4.8 - 10.8 K/mcL LAB HEMETOLOGY METHOD 03/24/2025 1:10 PM EDT [facility] RBC 2.80(L) 4.50 - 5.50 M/mcL LAB HEMETOLOGY METHOD 03/24/2025 1:10 PM EDT [facility] Hemoglobin 9.2(L) 13.5 - 17.5 g/dL LAB HEMETOLOGY METHOD 03/24/2025 1:10 PM EDT [facility] LAB Hematocrit 30.1(L) 42.0 - 54.0 % LAB HEMETOLOGY METHOD 03/24/2025 1:10 PM EDT [facility] LAB MCV 108.3(H) 79.0 - 98.0 FL LAB HEMETOLOGY METHOD [facility] MCH 33.1(H) 27.0 - 32.0 pcg LAB HEMETOLOGY METHOD [facility] MCHC 30.6(L) 32.0 - 37.0 g/dL LAB HEMETOLOGY METHOD 03/24[facility]2025 [facility] RDW 12.8 11.0 - 15.0 % LAB HEMETOLOGY METHOD 03/24/2025 1:10 PM EDT [facility] LAB Platelets 247 130 - 400 K/[facility] LAB HEMETOLOGY METHOD 03/24/2025 1:10 PM EDT [facility] LAB MPV 9.8 7.0 - 11.0 FL LAB HEMETOLOGY METHOD 03/24/2025 1:10 PM EDT [facility] LAB NRBC 0.0 <1.0 % LAB HEMETOLOGY METHOD 03/24/2025 1:10 PM EDT [facility] LAB NRBC Absolute 0.00 <0.10 K/[facility] LAB HEMETOLOGY METHOD 03/24/2025 1:10 PM EDT [facility] LAB Neutrophils Relative 68.8 % LAB HEMETOLOGY METHOD 03/24/2025 1:10 PM EDT [facility] Lymphocytes Relative 17.9 % LAB HEMETOLOGY METHOD 03/24/2025 1:10 PM [facility] Monocytes Relative 8.9 % LAB [facility]EMETOLOGY [facility] Eosinophils Relative 2.8 % LAB HEMETOLOGY METHOD 03/24/2025 1:10 PM [facility] LAB Basophils Relative 0.6 % LAB HEMETOLOGY METHOD 03/24/2025 1:10 PM [facility] LAB Immature Granulocytes Relative 1.0 % LAB HEMETOLOGY METHOD 03/24/2025 1:10 PM [facility] LAB Neutrophils Absolute 3.42 1.50 - 7.00 K/mcL LAB HEMETOLOGY METHOD 03/24/2025 1:10 PM [facility] LAB Lymphocytes Absolute 0.89(L) 1.00 - 5.00 K/mcL LAB HEMETOLOGY METHOD 03/24/2025 1:10 PM [facility] LAB Monocytes Absolute 0.44 0.20 - 1.00 K/mcL LAB HEMETOLOGY METHOD 03/24/2025 1:10 PM [facility] LAB Eosinophils Absolute 0.14 0.00 - 0.50 K/mcL LAB HEMETOLOGY METHOD 03/24/2025 1:10 PM [facility] LAB Basophils Absolute 0.03 0.00 - 0.20 K/mcL LAB HEMETOLOGY METHOD 03/24/2025 1:10 PM [facility] LAB Immature Granulocytes Absolute 0.05(H) 0.00 - 0.03 K/mcL LAB HEMETOLOGY METHOD 03/24/2025 1:10 PM [facility] LAB Blood Venous blood specimen / Unknown Venipuncture / Unknown 03/24/2025 5:36 AM EDT 03/24/2025 11:15 AM EDT us Ida BISWAS LAB BLOOD ORDERABLES Final Re sult [facility] ([facility]) [facility] [address] [place] [address], documented in this encounter Visit Diagnoses Diagnosis Encounter for other general examination documented in this encounter Care Teams Footwear Sales Associate Relationship Specialty Start Date End Date Ida Rivera PA [address] [place] [phone] PCP - General Physician Puller Out 03/19/25 documented as of this encounter
--- OUTSIDE RECORDS SUMMARY | 2025-04-18 11:02 | XMS_ITS | Encounter Summary ---
[facility] [place] [address] Care Team Providers Care Dry Box Operator Name Role Phone Ida Rivera Primary Care Provider [phone] Encounter Details Date Type Department Care Team ([facility] st Contact Info) Description 03/23/2025 Lab Requisition [facility] - Main Lab [address] [facility] [place] [phone] Ida Rivera PA [address] [place] [phone] Encounter for other general examination [...] Diagnosis Comments CBC WITH AUTO DIFFERENTIAL Routine 03/23/2025 6:05 AM EDT Encounter for other general examination CBC AND DIFFERENTIAL Routine 03/23/2025 6:05 AM EDT Encounter for other general examination documented in this encounter Results * (ABNORMAL) CBC auto differential (03/23/2025 6:05 AM EDT) WBC 4.4(L) 4.8 - 10.8 K/mcL LAB HEMETOLOGY METHOD 03/23/2025 9:36 AM [facility] LAB RBC 2.70(L) 4.50 - 5.50 M/mcL LAB HEMETOLOGY METHOD 03/23/2025 9:36 AM [facility] LAB Hemoglobin 8.9(L) 13.5 - 17.5 g/dL LAB HEMETOLOGY METHOD 03/23/2025 9:36 AM [facility] LAB Hematocrit 28.6(L) 42.0 - 54.0 % LAB HEMETOLOGY METHOD 03/23/2025 9:36 AM [facility] LAB MCV 105.1(H) 79.0 - 98.0 FL LAB HEMETOLOGY METHOD 03/23/2025 9:36 AM [facility] LAB MCH 32.7(H) 27.0 - 32.0 pcg LAB HEMETOLOGY METHOD 03/23/2025 9:36 AM [facility] LAB MCHC 31.1(L) 32.0 - 37.0 g/dL LAB HEMETOLOGY METHOD 03/23/2025 9:36 AM [facility] LAB RDW 12.7 11.0 - 15.0 % LAB HEMETOLOGY METHOD 03/23/2025 9:36 AM [facility] LAB Platelets 210 130 - 400 K/[facility] LAB HEMETOLOGY METHOD 03/23/2025 9:36 AM [facility] LAB MPV 9.8 7.0 - 11.0 FL LAB HEMETOLOGY METHOD 03/23/2025 9:36 AM [facility] LAB NRBC 0.0 <1.0 % LAB HEMETOLOGY METHOD 03/23/2025 9:36 AM [facility] LAB NRBC Absolute 0.00 <0.10 K/[facility] LAB HEMETOLOGY METHOD 03/23/2025 9:36 AM [facility] LAB Neutrophils Relative 71.4 % LAB HEMETOLOGY METHOD 03/23/2025 9:36 AM [facility] LAB Lymphocytes Relative 16.7 % LAB HEMETOLOGY METHOD 03/23/2025 9:36 AM [facility] LAB Monocytes Relative 7.8 % LAB HEMETOLOGY METHOD 03/23/2025 9:36 AM [facility] LAB Eosinophils Relative 2.7 % LAB HEMETOLOGY METHOD 03/23/2025 9:36 AM [facility] LAB Basophils Relative 0.5 % LAB HEMETOLOGY METHOD 03/23/2025 9:36 AM [facility] LAB Immature Granulocytes Relative 0.9 % LAB HEMETOLOGY METHOD 03/23/2025 9:36 AM [facility] LAB Neutrophils Absolute 3.13 1.50 - 7.00 K/mcL LAB HEMETOLOGY METHOD 03/23/2025 9:36 AM [facility] LAB Lymphocytes Absolute 0.73(L) 1.00 - 5.00 K/mcL LAB HEMETOLOGY METHOD 03/23/2025 9:36 AM [facility] LAB Monocytes Absolute 0.34 0.20 - 1.00 K/mcL LAB HEMETOLOGY METHOD 03/23/2025 9:36 AM [facility] LAB Eosinophils Absolute 0.12 0.00 - 0.50 K/mcL LAB HEMETOLOGY METHOD 03/23/2025 9:36 AM [facility] LAB Basophils Absolute 0.02 0.00 - 0.20 K/mcL LAB HEMETOLOGY METHOD 03/23/2025 9:36 AM [facility] LAB Immature Granulocytes Absolute 0.04(H) 0.00 - 0.03 K/mcL LAB HEMETOLOGY METHOD 03/23/2025 9:36 AM [facility] LAB Blood Venous blood specimen / Unknown Venipuncture / Unknown 03/23/2025 6:05 AM EDT 03/23/2025 8:42 AM EDT us Ida BISWAS LAB BLOOD ORDERABLES Final Re sult [facility] ([facility]) [facility] [address] [place] [address], documented in this encounter Visit Diagnoses Diagnosis Encounter for other general examination documented in this encounter Care Teams Dry Box Operator Relationship Specialty Start Date End Date Ida Rivera PA [address] [place] [phone] PCP - General Physician Mechanical Engineering Director 03/19/25 documented as of this encounter
--- NOTE | 2025-05-19 06:14 | ECG_ITS ---
Test Reason : ECT Blood Pressure : */* mmHG Vent. Rate : 78 BPM Atrial Rate : 78 BPM P-R Int : 152 ms QRS Dur : 86 ms QT Int : 374 ms P-R-T Axes : 37 31 47 degrees QTcB Int : 426 ms Normal sinus rhythm Normal ECG When compared with ECG of 18-Sep-2024 08:33, No significant change was found Referred By: Rose Mena Electronically Signed By: ROSALBA GALVEZ MD
[2025-05-19 06:15] VITALS: BP 131/74; PULSE 82; RESP 20; TEMP 36.3; O2SAT 100; BMI 29.6
[2025-05-19 06:39] LABS: Hematocrit 37.4 % (42.0-52.0); Hemoglobin 12.1 g/dl (14.0-18.0); Mean Corpuscular HGB Conc 32.4 g/dl (31.0-36.0); Mean Corpuscular Hemoglobin 33.0 pg (27.0-33.0); Mean Corpuscular Volume 101.9 fL (80.0-98.0); NRBC Abs Auto 0.000 X10*3/uL (0.0-0.012); NRBC Pct Auto 0.0 /100WBC (0.0-0.2); Platelet Count 169 X10*3/uL (160-400); Red Blood Count 3.67 X10*6/uL (4.60-5.80); White Blood Count 4.8 X10*3/uL (4.8-10.8)
--- NOTE | 2025-05-19 06:39 | HO.ANESPROP2 ---
[facility] Active Problems Active Problems: All Active Problems Major depressive disorder, recurrent episode, in partial remission with catatonia (Acute) Parkinson's disease without dyskinesia, without mention of fluctuations (Acute) Parkinson's disease (tremor, stiffness, slow motion, unstable posture) (Acute) Major depressive disorder, recurrent episode with mood-congruent psychotic features (Acute) Hypothyroidism (Acute) Vitamin B12 deficiency (Acute) Parkinsonian features (Acute) Crohn's disease (Acute) Past Medical History Medical History History of electroconvulsive therapy Parkinson's disease without dyskinesia, without mention of fluctuations Parkinson's disease (tremor, stiffness, slow motion, unstable posture) Osteoarthritis Crohn's disease Parkinsonian features Vitamin B12 deficiency Hypothyroidism Major depressive disorder, recurrent episode with mood-congruent psychotic features Family History Family History Father Stomach cancer Mother Dementia Family history of problems with anesthesia: No Surgical History Surgical History History of left knee replacement S/P small bowel resection History of Problems with Anesthesia: No Social History Social History Household Members: Spouse Housing: House Do you presently have visiting nurse or other home services: No Patient Tobacco Use Status: Never used Tobacco Tobacco use type: Cigarette e-Cigarette/Vaping Use: Never Used Advance Directives: No Advance Directives Information Provided: Yes service: Yes Sexual orientation: Straight/Heterosexual Meds Allergies Allergy/AdvReac Type Severity Reaction Status Date / Time codeine Allergy Intermediate Rash Verified 02/17/25 09:57 Home Medications ?Medication ?Instructions ?Recorded ?Confirmed ?Last Taken ?Type azathioprine 50 mg tablet 200 mg PO DAILY 03/22/24 02/17/25 11/21/24 History cyanocobalamin (vitamin B-12) 100 mcg subcut DAILY 03/22/24 02/17/25 Unknown History 1,000 mcg/mL injection solution lithium carbonate 300 mg tablet 300 mg PO BEDTIME 03/22/24 02/17/25 11/21/24 History venlafaxine 150 mg 300 mg PO DAILY 03/22/24 02/17/25 Unknown History capsule,extended release 24 hr aripiprazole 30 mg tablet 30 mg PO DAILY 02/17/25 02/17/25 Unknown History docusate sodium 100 mg capsule 100 mg PO DAILY 02/17/25 02/17/25 Unknown History naproxen 500 mg tablet 500 mg PO BID 02/17/25 02/17/25 Unknown History sertraline 100 mg tablet 100 mg PO DAILY 02/17/25 02/17/25 Unknown History Exam Airway Mallampati Class: II TM Dist: >3cm Neck ROM: Full Heart: rrr Lungs: cta Assessment and Plan Assessment Anesthesia Assessment: Anesthesia Plan Discussed and Chart Reviewed Final Anesthetic Review Family History of Problems with Anesthesia: No History of Problems with Anesthesia: No NPO: Yes ASA Class: III Final Preanesthetic Review: No Changes in Pt Med Stat, Meds/Allgs Chart Reviewed and Consent Obtained/Reviewed Patient Risk: Intermediate Procedure Risk: Intermediate Anesthetic Plan Anesthetic Plan: GA Disposition: Standard PACU
[2025-05-19] MEDS: Lactated Ringers 1,000 ML 50 ML IVCONT (06:48)
[2025-05-19 06:52] LABS: Anion Gap 13 (12-20); Blood Urea Nitrogen 17 mg/dL (9-16); Calcium 8.8 mg/dL (8.4-10.2); Carbon Dioxide 21 mmol/L (22-29); Chloride 110 mmol/L (96-108); Creatinine Clr Calc Pharmacy 60.7; Estimated Glomerular Filt Rate > 60; Potassium 4.0 mmol/L (3.3-5.1); Sodium 140 mmol/L (135-145)
--- NOTE | 2025-05-19 07:35 | MHC.SHP ---
Pre-Procedural Eval Section A - 24 Hr Update-Section A only Date of Service: 05/19/25 The patient is an INPATIENT: No Changes since office visit: No Cold of Flu in the past 2 weeks, No New Medical Problems, No Changes in Medication and No Patient answered all questions The patient has been examined within 24 hours of the surgical procedure. The History & Physical has been completed within 30 days and I have reviewed it.: Yes Section B - Complete if H&P > 30 days Chief Complaint: depression Details of Present Illness: some depression; feels ECT is affecting memory but tolerable Medical History: No relevant PMH Allergies: Allergies Allergy/AdvReac Type Severity Reaction Status Date / Time codeine Allergy Intermediate Rash Verified 02/17/25 09:57 Review of Systems Sugical H&P ROS: Negative: Constitution, Cardiovascular, Respiratory, Gastrointestinal and Genitourinary and Yes, Specify: Psychiatric (some depression) Exam Surgical H&P Exam: Normal: HEENT (PERRLA), Normal: Heart (RRR; no murmurs), Normal: Lungs (CTA b/l throughout) and Normal: Neurological (CN 2-12 grossly intact) Plan Diagnosis/Plan: Unchanged I have reviewed the history and physical and performed a pertinent physical examination on my patient. No changes have occurred unless specified. Time Spent With Patient Time: Total time managing care of this patient today ____ minutes.
--- NOTE | 2025-05-19 07:41 | HO.ECTPROC ---
ECT Procedure Note Diagnosis/Treatment Date of Service: 05/19/25 Diagnosis: Major Depressive Disorder Previous ECT Date: 04/18/25 Treatment: Maintenance Interval Clinical Notes: some depression; some memory loss from ECT but tolerable Time: Total time managing care of this patient today ____ minutes. ECT Settings Device: THYMATRON DGx Electrode Placement: Rt temporal/ Lt frontal Program/Pulse Width: 0.50 Energy Percent: 90 Seizure Duration By EEG (in seconds): 91 By Motor Observation (in seconds): 52 Medications Administration General Anesthetic: Etomidate (14) Muscle Relaxant: Succinylcholine (160) Ancillary Medications Anti-emetics: Zofran - Pre ECT (4) Miscillaneous Medications: Propofol (30 (post)) Airway Management Airway Management: LMA Treatment Recommendations No Changes Recommended: No change Electrode Placement: Rt temporal/ Lt frontal Program/Pulse Width: 0.50 Energy Percent: 90 Notes: continue with same parameters
[2025-05-19 08:02] VITALS: BP 161/79; PULSE 73; RESP 16; TEMP 36.8; O2SAT 100
[2025-05-19 08:07] VITALS: BP 131/67; PULSE 72; RESP 20; O2SAT 100
[2025-05-19 08:12] VITALS: BP 118/66; PULSE 82; RESP 20; O2SAT 97
[2025-05-19 08:17] VITALS: BP 132/73; PULSE 80; RESP 19; O2SAT 95
[2025-05-19 08:32] VITALS: BP 132/77; PULSE 81; RESP 21; TEMP 36.9; O2SAT 97
== END 2025-05-19 08:57 | disposition home or self-care (01) ==
PROVIDERS: Nurse Practitioner; PCP Student in an Organized Health Care Education/Training Program; Visit Provider Psychiatry & Neurology Psychiatry
PROC: (CPT 90870; principal; 2025-05-19 08:30)
DX: F33.3 Major depressive disorder, recurrent, severe with psychotic symptoms (principal); R41.3 Other amnesia; G20.A1 Parkinson's disease without dyskinesia, without mention of fluctuations; R73.03 Prediabetes; D64.9 Anemia, unspecified; K50.90 Crohn's disease, unspecified, without complications; E53.8 Deficiency of other specified B group vitamins; Z79.899 Other long term (current) drug therapy; Z88.5 Allergy status to narcotic agent; Z90.49 Acquired absence of other specified parts of digestive tract; Z96.652 Presence of left artificial knee joint
CPT/HCPCS: 36415; 80048; 85027; 90870; 93005; J0330; J2405; J2704

== ENCOUNTER → 2025-05-19 05:38 | Outpatient (BNV) | payer OTHER, SELFPAY | PROVIDERS: PCP Student in an Organized Health Care Education/Training Program; Visit Provider Psychiatry & Neurology Psychiatry | DX: F32.2 Major depressive disorder, single episode, severe without psychotic features (principal) | CPT/HCPCS: 90870 ==

== ENCOUNTER → 2025-05-19 06:14 | Outpatient (BNV) | payer OTHER, SELFPAY | PROVIDERS: PCP Student in an Organized Health Care Education/Training Program; Visit Provider Internal Medicine Cardiovascular Disease | DX: Z13.6 Encounter for screening for cardiovascular disorders (principal) | CPT/HCPCS: 93010 ==

== ENCOUNTER 2025-05-26 08:19 | Outpatient (AMB) | payer OTHER, SELFPAY ==
[2025-05-26 08:25] VITALS: BP 134/64; PULSE 91; O2SAT 96; BMI 29.8
--- NOTE | 2025-05-26 08:25 | MHC.OFFVIS ---
Vital Signs 05/26/25 08:25 Height 5 ft 7.5 in Weight 193 lb 2 oz BMI 29.8 BP 134/64 Blood Pressure Location Lt brachial Position Sitting Pulse 91 Pulse Source Pulse Oximeter Pulse Oximetry (%) 96 Oxygen Delivery Method Room Air Intake Visit Reasons: Worsening Parkinsons. Per MD Intake Note: Patient presents follow up worsening Parkinson's Medication. Patient states feels like he is getting worse. More shaking and unsteady on feet. Has tries cane but doesn't help. for long periods of walking suppose to use walker. states the worst in AM but has through out the day. will be discharged from PT for his knee replacement but PT stated he should continue for his constant unsteadiness. Allergies codeine Allergy (Intermediate, Verified 05/26/25 08:31) Rash HPI Comments Details: 75y/o male with Parkinsons disease comes for follow up for worsening coarse tremors. Jannet his helps with history taking. He has increased carbidopa/levodopa CR 50 / 200 qid, 8:30AM, 1pm, 5pm, and 8:30pm and is still having coarse UE tremors with gait instability, worse in the AM. Jannet states they would like to try Rytary as this may have continued release for slow release and longer on time coverage. Will start Rytary 36/145 3 capsules tid. We discussed medication dosing today to be taken without protein products, for best absorption results. He may take this medication with a cracker, a banana and or glass of juice. 3 weeks ago while taking the trash out, he caught the railing on the stairs as he almost fell, he did not sustain any injuries. He notices he moves slower and has more tremors in the morning. He did well with PT at [facility]. His sleep is poor, snores, gasps for air, tosses and turns, with bathroom breaks every 2 hours and now has bed rails installed. He has REM behavior disorder and screams in his sleep, has vivid dreams, denies a/v hallucinations. RLS, very jumpy legs bilaterally and can wake him up at night. Pramiprexole. His mood is low, has bouts of depression, now socially engaging with the [employer] 2x a month and his christian weekly. Memory is poor, he needs repetition and reminders, he has word recall difficulties, with loss of orientation. OT/PT is available, though he will be attending the [facility] starting this week, he is active, needs supervision with all ADLs. Voice is soft and raspy, has difficulty with projection of voice. Diet is okay eats all his food and he must chew slowly, he takes stool softeners which helps with daily BM. He has mild dysphagia with liquids, he is unable to cut up foods, cuts up his food, he has heavy weighted utensils, he denies drooling though diet is normal. He has anosmia. History from initial visit 02/2024- He was diagnosed about 3 years ago when he presented with right hand tremors. He is currently on carbidopa/levodopa CR 50/200 tid. He has depression, bipolar and is on lithium 300mg qd and on ECT Dr. [place]ina psychiatrist, [facility]. He denies exposure to neuroleptics. He is on Primidone 50mg 2 1/2 tabs qam and 2tabs qhs Memory- not good, he has word finding difficulty SLeep-used to have nightmares and REM behavior disorder Voice is softer - on therapy He denies swallowing issues No sense of smell His mood is OK His handwriting is poor He has trouble with dressing , eating, showering etc.He has constipation, has stool softener - He denies hallucinations.He has ocassional dizzy spells. He has balance and gait difficulties and uses his walker outside only. Has chrohns disease now taking 200mg of azathioprine Coarse tremors in hands worse and feet bilaterally especially at bedtime jumping and keeps him up. Mar 17, TKR r knee [facility], he was changed to cd/ld xr on Apr 02. February 25, 2024 L. TKR. He completed PT 1x a week for one week from Mar 18 to Apr 02. He started doing at home PT with instructions, he is able to walk on the side walk, then on the road in his neighborhood no walker and no cane. Support Group with Juany at [facility] this week May 26, 2025. [facility] Medical History History of electroconvulsive therapy Parkinson's disease without dyskinesia, without mention of fluctuations Parkinson's disease (tremor, stiffness, slow motion, unstable posture) Osteoarthritis Crohn's disease Parkinsonian features Vitamin B12 deficiency Hypothyroidism Major depressive disorder, recurrent episode with mood-congruent psychotic features Surgical History History of left knee replacement S/P small bowel resection Family History Father Stomach cancer Mother Dementia Social History Household Members: Spouse Housing: House Do you presently have visiting nurse or other home services: No Patient Tobacco Use Status: Never used Tobacco Tobacco use type: Cigarette e-Cigarette/Vaping Use: Never Used service: Yes Sexual orientation: Straight/Heterosexual Physical Exam Vital Signs: Last Vital Signs Pulse 91 05/26/25 08:25 BP 134/64 05/26/25 08:25 Pulse Ox 96 05/26/25 08:25 Oxygen Delivery Method Room Air 05/26/25 08:25 BMI result Body Mass Index 29.8 Const General: cooperative and no acute distress Nutritional Appearance: average body habitus Orientation/consciousness: patient oriented x3 HEENT Head: Yes normal to inspection Eyes Pupils: Equal, round and reactive pupils present Neck Other: mild antecollis and restricted range of motion Neuro Other: Mild decreased blink and facial expression mild lower lip tremors, tongue tremors , slow tongue movements Voice- severe hypophonia Right UE low amplitude rest tremors Fine Finger movements - severely decreased wanda R>L Alternating hand movements - decreased wanda Hand movements - decreased wanda Foot taps- decreased wanda Mild cog wheel rigidity gait - stooped, mild slowness with freezing and decreased arm swing R>L General: patient oriented x3 and no focal motor deficits Cranial nerves: Yes CN's II-XII intact bilaterally, Yes Equal, round and reactive pupils present, Yes Bilaterally intact EOM present, Yes Normal facial strength present, Yes Midline tongue present, Yes Ability to bilaterally rotate head present (with limited rom) and Yes Ability to bilaterally elevate shoulders present Cognition (Neuro): normal cognition Gait exam (Neuro): Shuffling gait present Motor exam (neuro): 5/5 motor strength present throughout and Normal motor muscle tone present throughout Coordination: other (dysmetria, with jerky movements) Psych Appearance: well kempt Speech and movement: Slowed speech present (Psych) Affect: Blunted affect present Assessment & Plan Assessment & Plan (1) Parkinson's disease (tremor, stiffness, slow motion, unstable posture): Code(s): G20 - Parkinson's disease Category: Medical (2) Parkinson's disease without dyskinesia, without mention of fluctuations: Code(s): G20.A1 - Parkinson's disease without dyskinesia, without mention of fluctuations Category: Medical Plan Will hold his Sinemet (sinemet CR 50/200 qid) pt is still having more coarse tremors of the upper ext and would like to try Rytary Will start him on Rytary 36/145 po daily TID Continue PT for Parkinsons at the [facility] and stay active daily. continue speech therapy Orders: Orders PT Evaluation and Treatment Today G20.A1 - Parkinson's disease without dyskinesia, without mention of fluctuations RT home sleep study Today G47.19 - Other hypersomnia Medications: New carbidopa-levodopa 36.25-145 mg ER (Rytary) divide evenly over waking hours 1 cap PO TID 3 months 270 caps 2RF Parkinsons MDD 3 capsules G20 - Parkinson's disease, G20.A1 - Parkinson's disease without dyskinesia, without mention of fluctuations carbidopa-levodopa 36.25-145 mg ER (Rytary) divide evenly over waking hours 1 cap PO TID 270 caps 2RF Parkinsons 3 months MDD 3 capsules G20 - Parkinson's disease, G20.A1 - Parkinson's disease without dyskinesia, without mention of fluctuations On Hold carbidopa-levodopa 50-200 mg ER Hold Comment: Doctor's Order 1 tab PO QID 120 tabs 6RF Patient Instructions: Sleep Hygiene provided: set a scheduled bedtime and wake time to help regulate the circadian rhythm and balance the release of pituitary hormones. Sleep in a dark room, temperatures below 68 degrees, and no devices n bed. Limit caffeinated products 6 hours prior to bed, and limit fluids 2-4 hours prior to bed. Gentle night yoga, diffusing essential oils, and playing soft music can be relaxing. Coding Level of Care Code Est Pt Level 4 (26462) Complex EM visit Add On G2211 Diagnoses Parkinson's disease (tremor, stiffness, slow motion, unstable posture) G20 Parkinson's disease without dyskinesia, without mention of fluctuations G20.A1
--- OUTSIDE RECORDS SUMMARY | 2025-05-26 08:35 | XMS_ITS | Encounter Summary ---
Author Organization [facility] Address [address] [place] [address] Care Team Providers Care Rail Transportation Operator Name Role Phone Ida Rivera Primary Care Provider Reason for Visit * Reason Onset Date Comments Med Refill 01/16/2025 Encounter Details Date Type Department Care Team ([facility] st Contact Info) Description 01/16/2025 Telephone Gastroenterology - [place] [facility] [address] [phone] Joan Almendarez MD [address] [facility] [address] [place] [address] Social History Tobacco Use Types Packs/Day Years [...] on filedocumented in this encounter Care Teams Rail Transportation Operator Relationship Specialty Start Date End Date Ida Rivera PA [address] [place] [phone] PCP - General Physician Balancer Scale 03/19/25 documented as of this encounter
--- OUTSIDE RECORDS SUMMARY | 2025-05-26 08:35 | XMS_ITS | Clinical Summary ---
Author Organization [facility] Address [address] [place] [address] Care Team Providers Care Photo Lab Specialist Name Role Phone Juany Pereira Primary Care Provider Unavailabl e Allergies Active Allergy Reactions Severity Noted Date Comments Codeine 07/20/2020 Medications Medication Sig Dispensed Refills Start Date End Date Status acetaminophen (TYLENOL) 500 MG tablet Take 500 mg by mouth every 6 hours as needed. 0 Active aripiprazole (ABILIFY) 15 MG tablet Take 15 mg by mouth daily. 0 Active colestipol (COLESTID) 5 g packet Take 5 g by mouth 2 times daily. 0 Active Cyanocobalamin 1000 MCG/ML Kit Inject as directed. 0 Active Diclofenac Sodium 1 % Gel Apply topically. 0 Active Doswell-3 Fatty Acids (FISH OIL) 1000 MG Cap Take by mouth. 0 Active folic acid (FOLVITE) 1 MG tablet Take 1 mg by mouth daily. 0 Active Melatonin 3 MG Tab Take by mouth. 0 Ac tive venlafaxine (EFFEXOR-XR) 75 MG 24 hr capsule Take 75 mg by mouth daily. 0 Active lithium 300 MG capsule Take 300 mg by mouth daily. 0 Active primidone (MYSOLINE) 50 MG tablet Take 50 mg by mouth daily. 0 Active methylphenidate (RITALIN) 20 MG tablet Take 20 mg by mouth 2 times daily. 0 Active triamcinolone acetonide (Kenalog) 40 MG/ML injectionIndications :Primary osteoarthritis of both knees Inject 1 mL into the articular space once for 1 dose. 2 mL 0 03/19/2021 Active bisacodyl (Dulcolax) 5 MG EC tablet Take 2 tabs by mouth right before beginning bowel prep. Follow instructions given by office for timing. 2 Tablet 0 07/17/2023 Active polyethylene glycol (GoLYTELY,NuLYTELY) 236 g suspension Take 240 mL by mouth once for 1 dose. Take 4L by mouth once for one dose. May substitue any PEG. Starting at 6PM the night before your procedure drink 1 8oz glasses at your own pace until rectals run clear. 4000 mL 0 07/17/2023 Active bisacodyl (Dulcolax) 5 MG EC tablet Take 2 tabs by mouth right before beginning bowel prep. Follow instructions given by office for timing. 2 Tablet 0 08/23/2023 Active polyethylene glycol (GoLYTELY,NuLYTELY) 236 g suspension Take 240 mL by mouth once for 1 dose. Take 4L by mouth once for one dose. May substitue any PEG. Starting at 6PM the night before your procedure drink 1 8oz glasses at your own pace until rectals run clear. 4000 mL 0 08/23/2023 Active omeprazole (PRILOSEC) 20 MG capsule Take 1 Capsule by mouth 2 times daily for 14 days. 28 Capsule 0 12/10/2023 Active azathioprine (Imuran) 50 MG tabletIndications:Cr ohn's disease involving terminal ileum (HCC) Take 4 Tablets by mouth daily for 180 days. 360 Tablet 0 04/18/2024 Active Active Problems Problem Noted Date Peripheral neuropathy 12/07/2020 Arthralgia 12/07/2020 Overview: Bilateral knees Insomnia 12/07/2020 Tremor of right hand 12/07/2020 Osteoarthritis 07/20/2020 Overview: Bilateral knees Benign prostate hyperplasia 07/20/2020 Hyperlipidemia 07/20/2020 Hypothyroidism 07/20/2020 Nephrolithiasis 07/20/2020 B12 deficiency anemia 07/20/2020 Degeneration of cervical intervertebral disc 07/20/2020 Crohn's disease involving terminal ileum 07/31/1968 Depressive disorder Immunizations Name Administration Dates Next Due COVID-19 (Moderna) 10/10/2020,09/06/2020 COVID-19 (Moderna) PT Reported 10/10/2020,2020 Shingrix (Recombinant zoster vaccine) 01/11/2021 Family History Medical History Relation Name Comments CA Stomach Father Relation Name Status Comments Father Mother Alive Social History Tobacco Use Types Packs/Day Years Used Date Smoking Tobacco: Never Smokeless Tobacco: Never Tobacco Cessation:Counseling Given: Not Answered Alcohol Use Standard Drinks/Week Comments No 0 [...] Sign Reading Time Taken Comments Blood Pressure 138/86 12/09/2022 1:31 PM EDT Pulse 82 12/09/2022 1:31 PM EDT Temperature - - Respiratory Rate 16 12/09/2022 1:31 PM EDT Oxygen Saturation 98% 04/13/2022 9:23 AM EDT Inhaled Oxygen Concentration - - Weight 95.3 kg (210 lb) 12/09/2022 1:31 PM EDT Height 172.7 cm (5' 8 ) 12/09/2022 1:31 PM EDT Body Mass Index 31.93 12/09/2022 1:31 PM EDT Plan of Treatment Health Maintenance Due Date Last Done Comments DTAP/TDAP/TD (1 - Tdap) 02/28/1968 CHOLESTEROL SCREENING 1969 PNEUMOCOCCAL VACCINE (1 - PCV) 2014 SHINGLES VACCINE (2 of 2) 03/08/2021 01/11/2021 BMI CHECK/ADVISE 07/31/2024 03/19/2021 Covid-19 Vaccine (5 - 2022-2 4 season) 2025 10/10/2020, 10/10/2020, 09/06/2020, Additional history exists INFLUENZA (#1) 2025 Care Teams Photo Lab Specialist Relationship Specialty Start Date End Date Juany Pereira PCP - General Family Practice 08/03/20
--- OUTSIDE RECORDS SUMMARY | 2025-05-26 08:36 | XMS_ITS | Encounter Summary ---
Author Organization [facility] Address [address] [place] [address] Care Team Providers Care Bed Teacher Name Role Phone Juany Pereira Primary Care Provider Unavailabl e Reason for Visit * Reason Onset Date Comments Medication 07/17/2023 Encounter Details Date Type Department Care Team Description 07/17/2023 Refill Gastroenterology - [address] [place] [phone] Ryan Almendarez MD [address] [place] [phone] Medication Social History Tobacco Use Types Packs/Day [...] on filedocumented in this encounter Care Teams Bed Teacher Relationship Specialty Start Date End Date Juany Pereira PCP - General Family Practice 08/03/20 documented as of this encounter
--- OUTSIDE RECORDS SUMMARY | 2025-05-26 08:36 | XMS_ITS | Clinical Summary ---
Author Organization [facility] Address [address] [place] [address] Phone Care Team Providers Care Short Story Writer Name Role Phone Ida Rivera Primary Care Provider [phone] Allergies Active Allergy Reactions Criticality Noted Date [...] 02/28/2025 Prediabetes 02/28/2025 Peripheral vascular disease, unspecified ([facility]/ [facility] V24) 02/28/2025 Parkinson's disease ([facility] V24, [facility] V28) 0 02/28/2025 Parkinsonism, unspecified ([facility] V24, [facility] V28) 02/28/2025 Parkinson's disease without dyskinesia, without mention of fluctuations ([facility] V24, [facility] V28) 02/28/2025 Pain in unspecified knee 02/28/2025 Pain in right hip 02/28/2025 Overactive bladder 02/28/2025 Other rosacea 02/28/2025 Other dietary vitamin B12 deficiency anemia 07/2024 Major depressive disorder, r ecurrent, severe with psychotic symptoms ([facility] V24, [facility] V28) 02/28/2025 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 ([facility] V24, [facility] V28) 02/28/2025 Major depressive disorder, recurrent, mild ([facility]/ [facility] V24) 02/28/2025 Ingrowing nail 02/28/2025 History of [...] knees Crohn's disease involving te rminal ileum ([facility] V24, [facility] V28) 07/31/1969 Resolved Problems Problem Noted Date Diagnosed Date Resolved Date Crohn's disease ([facility] V24, [facility] V28) 02/28/2025 03/01/2025 Overview (02/28/2025): Aug 28, 2020 Entered By: ABIGAIL BENSON Comment: of the terminal ileum Encounters Date Type Department Care Team Description 04/01/2025 Lab Requisition [facility] Lab [address] [place] [address] Ida Rivera PA Other rn long term care (current) drug therapy 03/31/2025 Lab Requisition [facility] Lab [address] [place] [address] Ida Rivera PA Encounter for other general examination 03/30/2025 Lab Requisition [facility] Lab [address] [place] [address] Ida Rivera PA Encounter for other general examination 03/29/2025 Lab Requisition [facility] Lab [address] [place] [address] Ida Rivera PA Encounter for other general examination 03/28/2025 Lab Requisition [facility] Lab [address] [place] [address] Ida Rivera PA Encounter for other general examination 03/27/2025 Lab Requisition [facility] Lab [address] [place] [address] Ida Rivera PA Encounter for other general examination 03/26/2025 Lab Requisition [facility] Lab [address] [place] [address] Ida Rivera PA Encounter for other general examination 03/25/2025 Lab Requisition [facility] Lab [address] [place] [address] Ida Rivera PA Encounter for other general examination 03/24/2025 Lab Requisition [facility] Lab [address] [place] [address] Ida Rivera PA Encounter for other general examination 03/23/2025 Lab Requisition [facility] Lab [address] [place] [address] Ida Rivera PA Encounter for other general examination 03/22/2025 Lab Requisition [facility] Lab [address] [place] [address] Ida Rivera PA Encounter for other general examination 03/21/2025 Lab Requisition [facility] Lab [address] [place] [address] Ida Rivera PA Encounter for other general examination 03/20/2025 Lab Requisition [facility] Main Lab [address] [place] [address] Ida Rivera PA Encounter for other general examination 03/19/2025 Lab Requisition [facility] - Main Lab [address] [place] [phone] Ida Rivera PA Encounter for other general examination 02/28/2025 12:30 PM EDT Office Visit Gastroenterology - [place] [facility] [address] [facility] [address] [place] [address] Joan Almendarez MD Crohn's disease involving terminal ileum ([facility] V24, [facility] V28) (Primary Dx) from Last 3 Months Immunizations Immunization Administration Dates Next Due Moderna SARS-CoV-2 COVID-19, mRNA, LNP-S, preservative free 10/10/2020,09/06/2020 Tdap Tetanus diptheria acell ular pertussis (Boostrix; Adacel) 7yo and older 02/10/2025 Zoster recombinant (Shingrix) 19yo and older Surgical History Surgery Date Site/Laterality Comments APPENDECTOMY PROCEDURE: [place] APPENDECTOMY COLONOSCOPY 2017 PROCEDURE: HISTORICAL COLONOSCOPY Medical History Medical History Date Comments Depressive disorder DX:Depressiv e disorder Crohn's disease involving te rminal ileum ([facility] V24, [facility] V28) 1970 DX:Crohn's disease in volving terminal ileum ([facility]) Hypothyroidism 07/20/2020 DX:Hypothyroidis m B12 deficiency anemia [...] series) 02/28/2024 Depression Screening 07/31/2024 COVID-19 Vaccine ( - 2024- season) 2025 07/05/2022, 06/22/2021, 10/10/2020, [...] PANEL Routine 04/01/2025 5:23 AM EDT Other long-term (current) drug therapy CBC WITH AUTO DIFFERENTIAL [...] AM EDT Encounter for other general examination from Last 3 Months Results * (ABNORMAL) Comprehensive metabolic panel (04/01/2025 5:23 AM EDT) Only the most recent of2 resultswithin the time period is included. Sodium 138 133 - 145 mmol/L LAB CHEMISTRY METHOD 04/01/2025 9:18 AM [facility] LAB Potassium 4.9 3.5 - 5.5 mmol/L LAB CHEMISTRY METHOD 04/01/2025 9:18 AM [facility] Chloride 106 96 - 110 mmol/L LAB CHEMISTRY METHOD 04/01/2025 9:18 AM [facility] CO2 28 21 - 32 mmol/L LAB CHEMISTRY METHOD 04/01/2025 9:18 AM [facility] Anion Gap 4 3 - 11 LAB CHEMISTRY METHOD 04/01/2025 9:18 AM [facility] Glucose 95 70 - 100 mg/dL LAB CHEMISTRY METHOD 04/01/2025 9:18 AM [facility] BUN 14 5 - 25 mg/dL LAB CHEMISTRY METHOD 04/01/2025 9:18 AM [facility] Creatinine 0.97 0.70 - 1.30 mg/dL LAB CHEMISTRY METHOD 04/01/2025 9:18 AM [facility] LAB eGFR 81 >=60 mL/min/1. 73m2 LAB CHEMISTRY METHOD 04/01/2025 9:18 AM [facility] Comment:Calculation based on the Chronic Kidney Disease Epidemiology Collaboration (CKD-EPI) equation refit without adjustment for race. BUN/Creatinine Ratio 14.4 LAB CHEMISTRY METHOD 04/01/2025 9:18 AM [facility] Calcium 8.8 8.5 - 10.5 mg/dL LAB CHEMISTRY METHOD 04/01/2025 9:18 AM [facility] AST (SGOT) 15 10 - 42 unit/L LAB CHEMISTRY METHOD 04/01/2025 9:18 AM [facility] Comment:Results verified by repeat testing ALT (SGPT) 9(L) 10 - 60 unit/L LAB CHEMISTRY METHOD 04/01/2025 9:18 AM [facility] Alkaline Phosphatase 124(H) 42 - 121 unit/L LAB CHEMISTRY METHOD 04/01/2025 9:18 AM [facility] Comment:Results verified by repeat testing Total Protein 5.8(L) 6.0 - 8.0 g/dL LAB CHEMISTRY METHOD 04/01/2025 9:18 AM [facility] Albumin 3.0(L) 3.2 - 5.0 g/dL LAB CHEMISTRY METHOD 04/01/2025 9:18 AM [facility] Total Bilirubin 0.3 0.0 - 1.4 mg/dL LAB CHEMISTRY METHOD 04/01/2025 9:18 AM [facility] Blood Venous blood specimen / Unknown Venipuncture / Unknown 04/01/2025 5:23 AM EDT 04/01/2025 7:13 AM EDT us Ida BISWAS LAB BLOOD ORDERABLES Final Re sult [facility] [address] [place] [address], [place] [phone] * (ABNORMAL) CBC auto differential (03/31/2025 6:02 AM EDT) Only the most recent of12 resultswithin the time period is included. [facility] WBC 4.8 4.8 - 10.8 K/mcL LAB HEMETOLOGY METHOD 03/31/2025 9:36 AM [facility] RBC 3.00(L) 4.50 - 5.50 M/mcL LAB HEMETOLOGY METHOD 03/31/2025 9:36 AM [facility] Hemoglobin 9.9(L) 13.5 - 17.5 g/dL LAB HEMETOLOGY METHOD 03/31/2025 9:36 AM [facility] Hematocrit 31.9(L) 42.0 - 54.0 % LAB HEMETOLOGY METHOD 03/31/2025 9:36 AM [facility] LAB MCV 106.7(H) 79.0 - 98.0 FL LAB HEMETOLOGY METHOD 03/31/2025 9:36 AM [facility] LAB MCH 33.1(H) 27.0 - 32.0 pcg LAB HEMETOLOGY METHOD 03/31/2025 9:36 AM [facility] LAB MCHC 31.0(L) 32.0 - 37.0 g/dL LAB HEMETOLOGY METHOD 03/31/2025 9:36 AM EDT [facility] RDW 13.0 11.0 - 15.0 % LAB HEMETOLOGY METHOD 03/31/2025 9:36 AM [facility] Platelets 340 130 - 400 K/mcL LAB HEMETOLOGY METHOD 03/31/2025 9:36 AM [facility] MPV 9.5 7.0 - 11.0 FL LAB HEMETOLOGY [facility]25 [facility] NRBC 0.0 <1.0 % LAB HEMETOLOGY METHOD 03/31/2025 9:36 AM EDT [facility] NRBC Absolute 0.00 <0.10 K/mcL LAB HEMETOLOGY METHOD 03/31/2025 9:36 AM [facility] Neutrophils Relative 65.6 % LAB HEMETOLOGY METHOD 03/31/2025 9:36 AM [facility] Lymphocytes Relative 18.4 % LAB HEMETOLOGY METHOD 03/31/2025 9:36 AM [facility] Monocytes Relative 11.7 % LAB HEMETOLOGY METHOD 03/31/2025 9:36 AM [facility] Eosinophils Relative 2.9 % LAB HEMETOLOGY METHOD 03/31/2025 9:36 AM [facility] Basophils Relative 0.6 % LAB HEMETOLOGY METHOD 03/31/2025 9:36 AM [facility] Immature Granulocytes Relative 0.8 % LAB HEMETOLOGY METHOD 03/31/2025 9:36 AM [facility] Neutrophils Absolute 3.12 1.50 - 7.00 K/mcL LAB HEMETOLOGY METHOD 03/31/2025 9:36 AM [facility] Lymphocytes Absolute 0.88(L) 1.00 - 5.00 K/mcL LAB HEMETOLOGY METHOD 03/31/2025 9:36 AM [facility] Monocytes Absolute 0.56 0.20 - 1.00 K/mcL LAB HEMETOLOGY METHOD 03/31/2025 9:36 AM [facility] Eosinophils Absolute 0.14 0.00 - 0.50 K/mcL LAB HEMETOLOGY METHOD 03/31/2025 9:36 AM [facility] Basophils Absolute 0.03 0.00 - 0.20 K/mcL LAB HEMETOLOGY METHOD 03/31/2025 9:36 AM EDT [facility] Immature Granulocytes Absolute 0.04(H) 0.00 - 0.03 K/mcL LAB HEMETOLOGY METHOD 03/31/2025 9:36 AM EDT [facility] Blood Venous blood specimen / Unknown Venipuncture / Unknown 03/31/2025 6:02 AM EDT 03/31/2025 8:53 AM EDT Ida BISWAS LAB BLOOD ORDERABLES Final Re sult [facility] [address] [place] [address], [place] [phone] * Lavender tube (03/19/2025 5:26 AM EDT) Extra Tube Hold for add-ons. 03/19/2025 9:01 AM EDT [facility] Comment:Auto resulted. Blood Venous blood specimen / Unknown Venipuncture / Unknown 03/19/2025 5:26 AM EDT 03/19/2025 7:31 AM EDT us Ida BISWAS LAB BLOOD ORDERABLES Final Re sult [facility] [address] [place] [address], [place] [phone] * Magnesium (03/19/2025 5:26 AM EDT) Magnesium 2.1 1.9 - 2.6 mg/dL LAB CHEMISTRY METHOD 03/19/2025 10:02 AM EDT [facility] Blood Venous blood specimen / Unknown Venipuncture / Unknown 03/19/2025 5:26 AM EDT 03/19/2025 7:31 AM EDT us Ida BISWAS LAB BLOOD ORDERABLES Final [facility] [address] [place] [address], from Last 3 Months Insurance [facility] MEDIC[facility] Care Teams Short Story Writer Relationship Specialty Start Date End Date Ida Rivera PA [address] [place] [phone] PCP - General Physician Oracle Sc[employer] Consultant 03/19/25
--- OUTSIDE RECORDS SUMMARY | 2025-05-26 08:36 | XMS_ITS | Encounter Summary ---
Author Organization [facility] Address [address] [place] [address] Care Team Providers Care Construction Management Instructor Name Role Phone Tessy Pereiraa Primary Care Provider Unavailabl e Reason for Visit * Reason Onset Date Comments Prior Authorization 03/27/2023 Endoscopy an d colonoscopy Encounter Details Date Type Department Care Team Description 03/27/2023 Telephone Adult Medicine [facility] [address] [place] [address] Ryan Almendarez MD [address] [place] [id number] Prior Authorization (Endoscopy and colonoscopy) Social History Tobacco Use Types Packs/Day Years [...] encounter Miscellaneous Notes * Telephone Encounter - Apoorva Gonzales - 03/27/2023 4:08 PM EDT [facility] [id number] 03/14/23 - 02/03/24 * Telephone Encounter - Apoorva Gonzales - 03/27/2023 10:38 AM EDT Images from the original note were not included. PRE AUTH Received: Today Jovany Potts Diagnostic PA & External surgeon [facility] pre-op pool Pre-auth needed Patient is scheduled for an Endoscopy AND COLON ??on 05/08/23 Diagnosis CHROHNS Bile salt-induced diarrhea Patients insurance: [employer] Appointment is with Emre Almendarez MD Code to process pre-auth for: [phone] Location of procedure: [facility] documented in this encounter Plan of Treatment Not on file documented as of this encounter Visit Diagnoses Not on filedocumented in this encounter Care Teams Construction Management Instructor Relationship Specialty Start Date End Date Juany Pereira PCP - General Family Practice 08/03/20 documented as of this encounter
--- OUTSIDE RECORDS SUMMARY | 2025-05-26 08:36 | XMS_ITS | Clinical Summary ---
Author Organization [facility] Address [address] [place] [address] Care Team Providers Care Trim Setter Helper Name Role Phone Juany Pereira MD Primary Care Provider [phone] Allergies Active Allergy Reactions Criticality Noted Date [...] age to complete this topic Care Teams Trim Setter Helper Relationship Specialty Start Date End Date Juany Pereira MD [address] [place] [id number] PCP - General Family Medicine 11/03/22
--- OUTSIDE RECORDS SUMMARY | 2025-05-26 08:36 | XMS_ITS | Encounter Summary ---
[facility] Address [address] [place] [address] Care Team Providers Care Cash Teller Name Role Phone Ida Rivera Primary Care Provider [phone] Encounter Details Date Type Department Care Team ([facility] st Contact Info) Description 03/26/2025 Lab Requisition [facility] - [facility] Lab [address] [facility] [place] [phone] Ida Rivera PA [address] [place] [phone] Encounter for other general examination Social History [...] K/mcL LAB HEMETOLOGY METHOD 03/26/2025 10:59 AM [facility] RBC 2.90(L) 4.50 - 5.50 M/[facility] LAB HEMETOLOGY METHOD 03/26/2025 10:59 AM [facility] Hemoglobin 9.3(L) 13.5 - 17.5 g/dL LAB HEMETOLOGY METHOD 03/26/2025 10:59 AM [facility] LAB Hematocrit 30.7(L) 42.0 - 54.0 % LAB HEMETOLOGY METHOD 03/26/2025 10:59 AM [facility] LAB MCV 107.0(H) 79.0 - 98.0 FL LAB HEMETOLOGY METHOD 03/26/2025 10:59 AM [facility] LAB MCH 32.4(H) 27.0 - 32.0 pcg LAB HEMETOLOGY METHOD 03/26/2025 10:59 AM [facility] LAB MCHC 30.3(L) 32.0 - 37.0 g/dL LAB HEMETOLOGY METHOD 03/26/2025 10:59 AM [facility] LAB RDW 13.0 11.0 - 15.0 % LAB HEMETOLOGY METHOD 03/26/2025 10:59 AM [facility] LAB Platelets 272 130 - 400 K/[facility] LAB HEMETOLOGY METHOD 03/26/2025 10:59 AM [facility] MPV 9.6 7.0 - 11.0 FL LAB HEMETOLOGY METHOD 03/26/2025 10:59 AM [facility] LAB NRBC 0.0 <1.0 % LAB HEMETOLOGY METHOD 03/26/2025 10:59 AM [facility] LAB NRBC Absolute 0.00 <0.10 K/[facility] LAB HEMETOLOGY METHOD 03/26/2025 10:59 AM [facility] Neutrophils Relative 66.7 % LAB HEMETOLOGY METHOD 03/26/2025 10:59 AM [facility] Lymphocytes Relative 17.9 % LAB HEMETOLOGY METHOD 03/26/2025 10:59 AM [facility] Monocytes Relative 10.5 % LAB HEMETOLOGY METHOD 03/26/2025 10:59 AM [facility] Eosinophils Relative 3.2 % LAB HEMETOLOGY METHOD 03/26/2025 10:59 AM [facility] Basophils Relative 0.6 % LAB HEMETOLOGY METHOD 03/26/2025 10:59 AM [facility] Immature Granulocytes Relative 1.1 % LAB HEMETOLOGY METHOD 03/26/2025 10:59 AM [facility] Neutrophils Absolute 3.12 1.50 - 7.00 K/mcL LAB HEMETOLOGY METHOD 03/26/2025 10:59 AM [facility] Lymphocytes Absolute 0.84(L) 1.00 - 5.00 K/mcL LAB HEMETOLOGY METHOD 03/26/2025 10:59 AM [facility] Monocytes Absolute 0.49 0.20 - 1.00 K/mcL LAB HEMETOLOGY METHOD 03/26/2025 10:59 AM [facility] Eosinophils Absolute 0.15 0.00 - 0.50 K/mcL LAB HEMETOLOGY METHOD 03/26/2025 10:59 AM [facility] Basophils Absolute 0.03 0.00 - 0.20 K/mcL LAB HEMETOLOGY METHOD 03/26/2025 10:59 AM [facility] LAB Immature Granulocytes Absolute 0.05(H) 0.00 - 0.03 K/mcL LAB HEMETOLOGY METHOD 03/26/2025 10:59 AM [facility] Blood Venous blood specimen / Unknown Venipuncture / Unknown 03/26/2025 5:42 AM EDT 03/26/2025 9:23 AM EDT us Ida BISWAS LAB BLOOD ORDERABLES Final Re sult [facility] [address] [place] [address], documented in this encounter Visit Diagnoses Diagnosis Encounter for other general examination documented in this encounter Care Teams Cash Teller Relationship Specialty Start Date End Date Ida Rivera PA [address] [place] [phone] PCP - General Physician [facility] Products Assembler 03/19/25 documented as of this encounter
--- OUTSIDE RECORDS SUMMARY | 2025-05-26 08:36 | XMS_ITS | Encounter Summary ---
[facility] Address [address] [place] [address] Care Team Providers Care Crepe Sole Scourer Name Role Phone Ida Rivera Primary Care Provider [phone] Encounter Details Date Type Department Care Team (Late st Contact Info) Description 04/01/2025 Lab Requisition [facility] - Main Lab [address] [facility] [place] [phone] Ida Rivera PA [address] [place] [phone] Other group home (current) drug therapy Social History Tobacco Use [...] PANEL Routine 04/01/2025 5:23 AM EDT Other middle or intermediate school principal (current) drug therapy documented in this encounter Results * (ABNORMAL) Comprehensive metabolic panel (04/01/2025 5:23 AM EDT) Sodium 138 133 - 145 mmol/L LAB [facility] Potassium 4.9 3.5 - 5.5 [...] LAB CHEMISTRY METHOD 04/01/2025 9:18 AM EDT [facility] Comment:Results verified by repeat testing Total Protein 5.8(L) 6.0 - 8.0 g/dL LAB CHEMISTRY METHOD 04/01/2025 9:18 AM EDT [facility] Albumin 3.0(L) 3.2 - 5.0 g/dL LAB CHEMISTRY METHOD 04/01/2025 9:18 AM EDT [facility] Total Bilirubin 0.3 0.0 - 1.4 mg/dL LAB CHEMISTRY METHOD 04/01/2025 9:18 AM EDT [facility] Blood Venous blood specimen / Unknown Venipuncture / Unknown 04/01/2025 5:23 AM EDT 04/01/2025 7:13 AM EDT us Ida BISWAS LAB BLOOD ORDERABLES Final Re sult [facility] [address] [place] [address], documented in this encounter Visit Diagnoses Diagnosis Other group home (current) drug therapy documented in this encounter Care Teams Crepe Sole Scourer Relationship Specialty Start Date End Date Ida Rivera PA [address] [place] [phone] PCP - General Physician Vice President Fixed Income 03/19/25 documented as of this encounter
--- OUTSIDE RECORDS SUMMARY | 2025-05-26 08:37 | XMS_ITS | Encounter Summary ---
Author [facility] [place] [address] Care Team Providers Care Mixing Machine Tender Cork Gasket Name Role Phone Ida Rivera Primary Care Provider Encounter Details Date Type Department Care Team ([facility] st Contact Info) Description 03/28/2025 Lab Requisition [facility] - Main Lab [address] [facility] [place] [phone] Ida Rivera PA [address] [place] [phone] Encounter for other general examination [...] K/mcL LAB HEMETOLOGY METHOD 03/28/2025 11:16 AM [facility] RBC 2.80(L) 4.50 - 5.50 M/mcL LAB HEMETOLOGY METHOD 03/28/2025 11:16 AM [facility] Hemoglobin 9.1(L) 13.5 - 17.5 g/dL LAB HEMETOLOGY METHOD 03/28/2025 11:16 AM [facility] LAB Hematocrit 29.4(L) 42.0 - 54.0 % LAB HEMETOLOGY METHOD 03/28/2025 11:16 AM [facility] LAB MCV 104.6(H) 79.0 - 98.0 FL LAB HEMETOLOGY METHOD 03/28/2025 11:16 AM [facility] LAB MCH 32.4(H) 27.0 - 32.0 pcg LAB HEMETOLOGY METHOD 03/28/2025 11:16 AM [facility] LAB MCHC 31.0(L) 32.0 - 37.0 g/dL LAB HEMETOLOGY METHOD 03/28/2025 11:16 AM [facility] LAB RDW 12.8 11.0 - 15.0 % LAB HEMETOLOGY METHOD 03/28/2025 11:16 AM [facility] LAB Platelets 295 130 - 400 K/[facility] LAB HEMETOLOGY METHOD 03/28/2025 11:16 AM [facility] MPV 9.5 7.0 - 11.0 FL LAB HEMETOLOGY METHOD 03/28/2025 11:16 AM [facility] LAB NRBC 0.0 <1.0 % LAB HEMETOLOGY METHOD 03/28/2025 11:16 AM [facility] LAB NRBC Absolute 0.00 <0.10 K/[facility] LAB HEMETOLOGY METHOD 03/28/2025 11:16 AM [facility] Neutrophils Relative 65.2 % LAB HEMETOLOGY METHOD 03/28/2025 11:16 AM [facility] Lymphocytes Relative 20.5 % LAB HEMETOLOGY METHOD 03/28/2025 11:16 AM [facility] Monocytes Relative 9.9 % LAB HEMETOLOGY METHOD 03/28/2025 11:16 AM [facility] Eosinophils Relative 3.0 % LAB HEMETOLOGY METHOD 03/28/2025 11:16 AM [facility] Basophils Relative 0.5 % LAB HEMETOLOGY METHOD 03/28/2025 11:16 AM [facility] Immature Granulocytes Relative 0.9 % LAB HEMETOLOGY METHOD 03/28/2025 11:16 AM [facility] Neutrophils Absolute 2.84 1.50 - 7.00 K/mcL LAB HEMETOLOGY METHOD 03/28/2025 11:16 AM [facility] Lymphocytes Absolute 0.89(L) 1.00 - 5.00 K/mcL LAB HEMETOLOGY METHOD 03/28/2025 11:16 AM [facility] Monocytes Absolute 0.43 0.20 - 1.00 K/mcL LAB HEMETOLOGY METHOD 03/28/2025 11:16 AM [facility] Eosinophils Absolute 0.13 0.00 - 0.50 K/mcL LAB HEMETOLOGY METHOD 03/28/2025 11:16 AM [facility] Basophils Absolute 0.02 0.00 - 0.20 K/mcL LAB HEMETOLOGY METHOD 03/28/2025 11:16 AM [facility] LAB Immature Granulocytes Absolute 0.04(H) 0.00 - 0.03 K/mcL LAB HEMETOLOGY METHOD 03/28/2025 11:16 AM [facility] Blood Venous blood specimen / Unknown Venipuncture / Unknown 03/28/2025 6:40 AM EDT 03/28/2025 10:25 AM EDT us Ida BISWAS LAB BLOOD ORDERABLES Final Re sult [facility] [address] [place] [address], documented in this encounter Visit Diagnoses Diagnosis Encounter for other general examination documented in this encounter Care Teams Mixing Machine Tender Cork Gasket Relationship Specialty Start Date End Date Ida Rivera PA [address] [place] [phone] PCP - General Physician Photoengraving Photographer 03/19/25 documented as of this encounter
--- OUTSIDE RECORDS SUMMARY | 2025-05-26 08:37 | XMS_ITS | Encounter Summary ---
Author Organization [facility] [place] [address] Care Team Providers Care Parachute Folder Name Role Phone Ida Rivera Primary Care Provider [phone] Encounter Details Date Type Department Care Team ([facility] st Contact Info) Description 03/29/2025 Lab Requisition [facility] - Main Lab 299 [facility] [place] [phone] Ida Rivera PA [address] [place] [phone] Encounter for other general examination Social History [...] K/mcL LAB HEMETOLOGY METHOD 03/29/2025 11:41 AM [facility] LAB RBC 2.70(L) 4.50 - 5.50 M/mcL LAB HEMETOLOGY METHOD 03/29/2025 11:41 AM [facility] LAB Hemoglobin 9.0(L) 13.5 - 17.5 g/dL LAB HEMETOLOGY METHOD 03/29/2025 11:41 AM [facility] LAB Hematocrit 29.4(L) 42.0 - 54.0 % LAB HEMETOLOGY METHOD 03/29/2025 11:41 AM [facility] LAB MCV 107.7(H) 79.0 - 98.0 FL LAB HEMETOLOGY METHOD 03/29/2025 11:41 AM [facility] LAB MCH 33.0(H) 27.0 - 32.0 pcg LAB HEMETOLOGY METHOD 03/29/2025 11:41 AM [facility] LAB MCHC 30.6(L) 32.0 - 37.0 g/dL LAB HEMETOLOGY METHOD 03/29/2025 11:41 AM [facility] LAB RDW 12.9 11.0 - 15.0 % LAB HEMETOLOGY METHOD 03/29/2025 11:41 AM [facility] LAB Platelets 309 130 - 400 K/[facility] LAB HEMETOLOGY METHOD 03/29/2025 11:41 AM [facility] LAB MPV 9.4 7.0 - 11.0 FL LAB HEMETOLOGY METHOD 03/29/2025 11:41 AM [facility] LAB NRBC 0.0 <1.0 % LAB HEMETOLOGY METHOD 03/29/2025 11:41 AM [facility] LAB NRBC Absolute 0.00 <0.10 K/[facility] LAB HEMETOLOGY METHOD 03/29/2025 11:41 AM [facility] LAB Neutrophils Relative 66.4 % LAB HEMETOLOGY METHOD 03/29/2025 11:41 AM [facility] LAB Lymphocytes Relative 18.6 % LAB HEMETOLOGY METHOD 03/29/2025 11:41 AM [facility] LAB Monocytes Relative 10.8 % LAB HEMETOLOGY METHOD 03/29/2025 11:41 AM [facility] LAB Eosinophils Relative 2.9 % LAB HEMETOLOGY METHOD 03/29/2025 11:41 AM [facility] LAB Basophils Relative 0.4 % LAB HEMETOLOGY METHOD 03/29/2025 11:41 AM [facility] LAB Immature Granulocytes Relative 0.9 % LAB HEMETOLOGY METHOD 03/29/2025 11:41 AM [facility] LAB Neutrophils Absolute 2.96 1.50 - 7.00 K/mcL LAB HEMETOLOGY METHOD 03/29/2025 11:41 AM [facility] LAB Lymphocytes Absolute 0.83(L) 1.00 - 5.00 K/mcL LAB HEMETOLOGY METHOD 03/29/2025 11:41 AM [facility] LAB Monocytes Absolute 0.48 0.20 - 1.00 K/mcL LAB HEMETOLOGY METHOD 03/29/2025 11:41 AM [facility] LAB Eosinophils Absolute 0.13 0.00 - 0.50 K/mcL LAB HEMETOLOGY METHOD 03/29/2025 11:41 AM [facility] LAB Basophils Absolute 0.02 0.00 - 0.20 K/mcL LAB HEMETOLOGY METHOD 03/29/2025 11:41 AM [facility] LAB Immature Granulocytes Absolute 0.04(H) 0.00 - 0.03 K/mcL LAB HEMETOLOGY METHOD 03/29/2025 11:41 AM [facility] LAB Blood Venous blood specimen / Unknown Venipuncture / Unknown 03/29/2025 6:07 AM EDT 03/29/2025 11:00 AM EDT us Ida BISWAS LAB BLOOD ORDERABLES Final Re sult [facility] LAB [address] [place] [address], documented in this encounter Visit Diagnoses Diagnosis Encounter for other general examination documented in this encounter Care Teams Parachute Folder Relationship Specialty Start Date End Date Ida Rivera PA [address] [place] [phone] PCP - General Physician Lead Janitor 03/19/25 documented as of this encounter
--- OUTSIDE RECORDS SUMMARY | 2025-05-26 08:37 | XMS_ITS | Encounter Summary ---
Author Organization [facility] Address [address] [place] [address] Care Team Providers Care Casing Builder Name Role Phone Ida Rivera Primary Care Provider [phone] Encounter Details Date Type Department Care Team ([facility] st Contact Info) Description 03/21/2025 Lab Requisition [facility] - Main Lab 299 [facility] [place] [phone] Ida Rivera PA [address] [place] [address] Encounter for other general examination [...] K/mcL LAB HEMETOLOGY METHOD 03/21/2025 10:37 AM [facility] LAB RBC 2.90(L) 4.50 - 5.50 M/[facility] LAB HEMETOLOGY METHOD 03/21/2025 10:37 AM [facility] LAB Hemoglobin 9.5(L) 13.5 - 17.5 g/dL LAB HEMETOLOGY METHOD 03/21/2025 10:37 AM [facility] LAB Hematocrit 30.7(L) 42.0 - 54.0 % LAB HEMETOLOGY METHOD 03/21/2025 10:37 AM [facility] LAB MCV 105.5(H) 79.0 - 98.0 FL LAB HEMETOLOGY METHOD 03/21/2025 10:37 AM [facility] LAB MCH 32.6(H) 27.0 - 32.0 pcg LAB HEMETOLOGY METHOD 03/21/2025 10:37 AM [facility] LAB MCHC 30.9(L) 32.0 - 37.0 g/dL LAB HEMETOLOGY METHOD 03/21/2025 10:37 AM [facility] LAB RDW 12.8 11.0 - 15.0 % LAB HEMETOLOGY METHOD 03/21/2025 10:37 AM [facility] LAB Platelets 198 130 - 400 K/[facility] LAB HEMETOLOGY METHOD 03/21/2025 10:37 AM [facility] LAB MPV 10.3 7.0 - 11.0 FL LAB HEMETOLOGY METHOD 03/21/2025 10:37 AM [facility] LAB NRBC 0.0 <1.0 % LAB HEMETOLOGY METHOD 03/21/2025 10:37 AM [facility] LAB NRBC Absolute 0.00 <0.10 K/[facility] LAB HEMETOLOGY METHOD 03/21/2025 10:37 AM [facility] LAB Neutrophils Relative 71.4 % LAB HEMETOLOGY METHOD 03/21/2025 10:37 AM [facility] LAB Lymphocytes Relative 16.9 % LAB HEMETOLOGY METHOD 03/21/2025 10:37 AM [facility] LAB Monocytes Relative 7.5 % LAB HEMETOLOGY METHOD 03/21/2025 10:37 AM [facility] LAB Eosinophils Relative 3.1 % LAB HEMETOLOGY METHOD 03/21/2025 10:37 AM [facility] LAB Basophils Relative 0.2 % LAB HEMETOLOGY METHOD 03/21/2025 10:37 AM [facility] LAB Immature Granulocytes Relative 0.9 % LAB HEMETOLOGY METHOD 03/21/2025 10:37 AM [facility] LAB Neutrophils Absolute 4.20 1.50 - 7.00 K/mcL LAB HEMETOLOGY METHOD 03/21/2025 10:37 AM [facility] LAB Lymphocytes Absolute 0.99(L) 1.00 - 5.00 K/mcL LAB HEMETOLOGY METHOD 03/21/2025 10:37 AM [facility] LAB Monocytes Absolute 0.44 0.20 - 1.00 K/mcL LAB HEMETOLOGY METHOD 03/21/2025 10:37 AM [facility] LAB Eosinophils Absolute 0.18 0.00 - 0.50 K/mcL LAB HEMETOLOGY METHOD 03/21/2025 10:37 AM [facility] LAB Basophils Absolute 0.01 0.00 - 0.20 K/mcL LAB HEMETOLOGY METHOD 03/21/2025 10:37 AM [facility] LAB Immature Granulocytes Absolute 0.05(H) 0.00 - 0.03 K/mcL LAB HEMETOLOGY METHOD 03/21/2025 10:37 AM [facility] LAB Blood Venous blood specimen / Unknown Venipuncture / Unknown 03/21/2025 5:53 AM EDT 03/21/2025 9:29 AM EDT us Ida BISWAS LAB BLOOD ORDERABLES Final Re sult [facility] ([facility]) [facility] LAB [address] [place] [address], documented in this encounter Visit Diagnoses Diagnosis Encounter for other general examination documented in this encounter Care Teams Casing Builder Relationship Specialty Start Date End Date Ida Rivera PA [address] [place] [phone] PCP - General Physician Automation Qa Analyst 03/19/25 documented as of this encounter
--- OUTSIDE RECORDS SUMMARY | 2025-05-26 08:37 | XMS_ITS | Encounter Summary ---
Author Organization [facility] Address [address] [place] [address] Care Team Providers Care Yeast Cake Cutter Name Role Phone Juany Pereira Primary Care Provider Unavailabl e Encounter Details Date Type Department Care Team Description 09/22/2023 Refill Gastroenterology - [address] [place] [address] Ryan Almendarez MD [address] [place] [id number] Social History Tobacco Use Types Packs/Day Years [...] (HCC) documented in this encounter Care Teams Yeast Cake Cutter Relationship Specialty Start Date End Date Juany Pereira PCP - General Family Practice 08/03/20 documented as of this encounter
--- OUTSIDE RECORDS SUMMARY | 2025-05-26 08:37 | XMS_ITS | Encounter Summary ---
Author Organization [facility] [place] [address] Care Team Providers Care Airplane Dispatch Clerk Name Role Phone Iad Rivera Primary Care Provider [phone] Encounter Details Date Type Department Care Team (Late st Contact Info) Description 03/31/2025 Lab Requisition [facility] - Main Lab 299 [facility] [place] [phone] Ida Rivera PA [address] [place] [phone] Encounter for other general examination Social History [...] M/mcL LAB HEMETOLOGY METHOD 03/31/2025 9:36 AM [facility] LAB Hemoglobin 9.9(L) 13.5 - 17.5 [...] HOSPITAL LAB Platelets 340 130 - 400 K/[facility] LAB HEMETOLOGY METHOD 03/31/2025 9:36 AM [facility] LAB MPV 9.5 7.0 - 11.0 FL LAB HEMETOLOGY METHOD 03/31/2025 9:36 AM [facility] LAB NRBC 0.0 <1.0 % LAB HEMETOLOGY METHOD 03/31/2025 9:36 AM [facility] LAB NRBC Absolute 0.00 <0.10 K/[facility] LAB HEMETOLOGY METHOD 03/31/2025 9:36 AM [facility] LAB Neutrophils Relative 65.6 % LAB HEMETOLOGY METHOD 03/31/2025 9:36 AM [facility] LAB Lymphocytes Relative 18.4 % LAB HEMETOLOGY METHOD 03/31/2025 9:36 AM [facility] LAB Monocytes Relative 11.7 % LAB HEMETOLOGY METHOD 03/31/2025 9:36 AM [facility] LAB Eosinophils Relative 2.9 % LAB HEMETOLOGY METHOD 03/31/2025 9:36 AM [facility] LAB Basophils Relative 0.6 % LAB HEMETOLOGY METHOD 03/31/2025 9:36 AM [facility] LAB Immature Granulocytes Relative 0.8 % LAB HEMETOLOGY METHOD 03/31/2025 9:36 AM [facility] LAB Neutrophils Absolute 3.12 1.50 - 7.00 K/mcL LAB HEMETOLOGY METHOD 03/31/2025 9:36 AM [facility] LAB Lymphocytes Absolute 0.88(L) 1.00 - 5.00 K/mcL LAB HEMETOLOGY METHOD 03/31/2025 9:36 AM [facility] LAB Monocytes Absolute 0.56 0.20 - 1.00 K/mcL LAB HEMETOLOGY METHOD 03/31/2025 9:36 AM [facility] LAB Eosinophils Absolute 0.14 0.00 - 0.50 K/mcL LAB HEMETOLOGY METHOD 03/31/2025 9:36 AM [facility] LAB Basophils Absolute 0.03 0.00 - 0.20 K/mcL LAB HEMETOLOGY METHOD 03/31/2025 9:36 AM [facility] LAB Immature Granulocytes Absolute 0.04(H) 0.00 - 0.03 K/mcL LAB HEMETOLOGY METHOD 03/31/2025 9:36 AM [facility] LAB Blood Venous blood specimen / Unknown Venipuncture / Unknown 03/31/2025 6:02 AM EDT 03/31/2025 8:53 AM EDT us Ida BISWAS LAB BLOOD ORDERABLES Final Re sult [facility] ([facility]) [facility] LAB [address] [place] [address], documented in this encounter Visit Diagnoses Diagnosis Encounter for other general examination documented in this encounter Care Teams Airplane Dispatch Clerk Relationship Specialty Start Date End Date Ida Rivera PA [address] [place] [phone] PCP - General Physician Rod Placer 03/19/25 documented as of this encounter
--- OUTSIDE RECORDS SUMMARY | 2025-05-26 08:37 | XMS_ITS | Encounter Summary ---
Author Organization [facility] [place] [address] Care Team Providers Care Russian Language Professor Name Role Phone Ida Rivera Primary Care Provider [phone] Encounter Details Date Type Department Care Team ([facility] st Contact Info) Description 03/30/2025 Lab Requisition [facility] - Main Lab [address] [facility] [place] [phone] Ida Rivera PA [address] [place] [phone] Encounter for other general examination Social History [...] K/mcL LAB HEMETOLOGY METHOD 03/30/2025 10:12 AM [facility] LAB RBC 3.00(L) 4.50 - 5.50 M/[facility] LAB HEMETOLOGY METHOD 03/30/2025 10:12 AM [facility] LAB Hemoglobin 9.8(L) 13.5 - 17.5 g/dL LAB HEMETOLOGY METHOD 03/30/2025 10:12 AM [facility] LAB Hematocrit 31.5(L) 42.0 - 54.0 % LAB HEMETOLOGY METHOD 03/30/2025 10:12 AM [facility] LAB MCV 106.1(H) 79.0 - 98.0 FL LAB HEMETOLOGY METHOD 03/30/2025 10:12 AM [facility] LAB MCH 33.0(H) 27.0 - 32.0 pcg LAB HEMETOLOGY METHOD 03/30/2025 10:12 AM [facility] LAB MCHC 31.1(L) 32.0 - 37.0 g/dL LAB HEMETOLOGY METHOD 03/30/2025 10:12 AM [facility] LAB RDW 12.8 11.0 - 15.0 % LAB HEMETOLOGY METHOD 03/30/2025 10:12 AM [facility] LAB Platelets 314 130 - 400 K/[facility] LAB HEMETOLOGY METHOD 03/30/2025 10:12 AM [facility] LAB MPV 9.3 7.0 - 11.0 FL LAB HEMETOLOGY METHOD 03/30/2025 10:12 AM [facility] LAB NRBC 0.0 <1.0 % LAB HEMETOLOGY METHOD 03/30/2025 10:12 AM [facility] LAB NRBC Absolute 0.00 <0.10 K/[facility] LAB HEMETOLOGY METHOD 03/30/2025 10:12 AM [facility] LAB Neutrophils Relative 65.3 % LAB HEMETOLOGY METHOD 03/30/2025 10:12 AM [facility] LAB Lymphocytes Relative 19.2 % LAB HEMETOLOGY METHOD 03/30/2025 10:12 AM [facility] LAB Monocytes Relative 10.8 % LAB HEMETOLOGY METHOD 03/30/2025 10:12 AM [facility] LAB Eosinophils Relative 3.7 % LAB HEMETOLOGY METHOD 03/30/2025 10:12 AM [facility] LAB Basophils Relative 0.4 % LAB HEMETOLOGY METHOD 03/30/2025 10:12 AM [facility] LAB Immature Granulocytes Relative 0.6 % LAB HEMETOLOGY METHOD 03/30/2025 10:12 AM [facility] LAB Neutrophils Absolute 3.02 1.50 - 7.00 K/mcL LAB HEMETOLOGY METHOD 03/30/2025 10:12 AM [facility] LAB Lymphocytes Absolute 0.89(L) 1.00 - 5.00 K/mcL LAB HEMETOLOGY METHOD 03/30/2025 10:12 AM [facility] LAB Monocytes Absolute 0.50 0.20 - 1.00 K/mcL LAB HEMETOLOGY METHOD 03/30/2025 10:12 AM [facility] LAB Eosinophils Absolute 0.17 0.00 - 0.50 K/mcL LAB HEMETOLOGY METHOD 03/30/2025 10:12 AM [facility] LAB Basophils Absolute 0.02 0.00 - 0.20 K/mcL LAB HEMETOLOGY METHOD 03/30/2025 10:12 AM [facility] LAB Immature Granulocytes Absolute 0.03 0.00 - 0.03 K/mcL LAB HEMETOLOGY METHOD 03/30/2025 10:12 AM [facility] LAB Blood Venous blood specimen / Unknown Venipuncture / Unknown 03/30/2025 6:36 AM EDT 03/30/2025 9:33 AM EDT us Ida BISWAS LAB BLOOD ORDERABLES Final Re sult [facility] ([facility]) [facility] LAB [address] [place] [address], documented in this encounter Visit Diagnoses Diagnosis Encounter for other general examination documented in this encounter Care Teams Russian Language Professor Relationship Specialty Start Date End Date Ida Rivera PA [address] [place] [phone] PCP - General Physician Medical Sociologist 03/19/25 documented as of this encounter
--- OUTSIDE RECORDS SUMMARY | 2025-05-26 08:37 | XMS_ITS | Encounter Summary ---
Author Organization [facility] [place] [address] Care Team Providers Care Manager Legal Name Role Phone Ida Rivera Primary Care Provider [phone] Encounter Details Date Type Department Care Team ([facility] st Contact Info) Description 03/27/2025 Lab Requisition [facility] - Main Lab 299 [facility] [place] [phone] Ida Rivera PA [address] [place] [phone] Encounter for other general examination Social History [...] K/mcL LAB HEMETOLOGY METHOD 03/27/2025 11:44 AM [facility] LAB RBC 2.80(L) 4.50 - 5.50 M/mcL LAB HEMETOLOGY METHOD 03/27/2025 11:44 AM [facility] LAB Hemoglobin 9.4(L) 13.5 - 17.5 g/dL LAB HEMETOLOGY METHOD 03/27/2025 11:44 AM [facility] LAB Hematocrit 30.0(L) 42.0 - 54.0 % LAB HEMETOLOGY METHOD 03/27/2025 11:44 AM [facility] LAB MCV 106.4(H) 79.0 - 98.0 FL LAB HEMETOLOGY METHOD 03/27/2025 11:44 AM [facility] LAB MCH 33.3(H) 27.0 - 32.0 pcg LAB HEMETOLOGY METHOD 03/27/2025 11:44 AM [facility] LAB MCHC 31.3(L) 32.0 - 37.0 g/dL LAB HEMETOLOGY METHOD 03/27/2025 11:44 AM [facility] LAB RDW 12.8 11.0 - 15.0 % LAB HEMETOLOGY METHOD 03/27/2025 11:44 AM [facility] LAB Platelets 271 130 - 400 K/[facility] LAB HEMETOLOGY METHOD 03/27/2025 11:44 AM [facility] LAB MPV 9.6 7.0 - 11.0 FL LAB HEMETOLOGY METHOD 03/27/2025 11:44 AM [facility] LAB NRBC 0.0 <1.0 % LAB HEMETOLOGY METHOD 03/27/2025 11:44 AM [facility] LAB NRBC Absolute 0.00 <0.10 K/[facility] LAB HEMETOLOGY METHOD 03/27/2025 11:44 AM [facility] LAB Neutrophils Relative 64.9 % LAB HEMETOLOGY METHOD 03/27/2025 11:44 AM [facility] LAB Lymphocytes Relative 20.3 % LAB HEMETOLOGY METHOD 03/27/2025 11:44 AM [facility] LAB Monocytes Relative 10.3 % LAB HEMETOLOGY METHOD 03/27/2025 11:44 AM [facility] LAB Eosinophils Relative 3.3 % LAB HEMETOLOGY METHOD 03/27/2025 11:44 AM [facility] LAB Basophils Relative 0.5 % LAB HEMETOLOGY METHOD 03/27/2025 11:44 AM [facility] LAB Immature Granulocytes Relative 0.7 % LAB HEMETOLOGY METHOD 03/27/2025 11:44 AM [facility] LAB Neutrophils Absolute 2.79 1.50 - 7.00 K/mcL LAB HEMETOLOGY METHOD 03/27/2025 11:44 AM [facility] LAB Lymphocytes Absolute 0.87(L) 1.00 - 5.00 K/mcL LAB HEMETOLOGY METHOD 03/27/2025 11:44 AM [facility] LAB Monocytes Absolute 0.44 0.20 - 1.00 K/mcL LAB HEMETOLOGY METHOD 03/27/2025 11:44 AM [facility] LAB Eosinophils Absolute 0.14 0.00 - 0.50 K/mcL LAB HEMETOLOGY METHOD 03/27/2025 11:44 AM [facility] LAB Basophils Absolute 0.02 0.00 - 0.20 K/mcL LAB HEMETOLOGY METHOD 03/27/2025 11:44 AM [facility] LAB Immature Granulocytes Absolute 0.03 0.00 - 0.03 K/mcL LAB HEMETOLOGY METHOD 03/27/2025 11:44 AM [facility] LAB Blood Venous blood specimen / Unknown Venipuncture / Unknown 03/27/2025 6:28 AM EDT 03/27/2025 10:58 AM EDT us Ida BISWAS LAB BLOOD ORDERABLES Final Re sult [facility] ([facility]) [facility] LAB [address] [place] [address], documented in this encounter Visit Diagnoses Diagnosis Encounter for other general examination documented in this encounter Care Teams Manager Legal Relationship Specialty Start Date End Date Ida Rivera PA [address] [place] [phone] PCP - General Physician Travel Money Advisor 03/19/25 documented as of this encounter
--- OUTSIDE RECORDS SUMMARY | 2025-05-26 08:37 | XMS_ITS | Encounter Summary ---
Author Organization [facility] [place] [address] Care Team Providers Care Concreter Name Role Phone Ida Rivera Primary Care Provider [phone] Encounter Details Date Type Department Care Team ([facility] st Contact Info) Description 03/25/[address] [facility] - Main Lab 299 [facility] [place] [phone] Ida Rivera PA [address] [place] [phone] Encounter for other general examination Social History [...] K/mcL LAB HEMETOLOGY METHOD 03/25/2025 11:28 AM [facility] LAB RBC 2.80(L) 4.50 - 5.50 M/[facility] LAB HEMETOLOGY METHOD 03/25/2025 11:28 AM [facility] LAB Hemoglobin 9.3(L) 13.5 - 17.5 g/dL LAB HEMETOLOGY METHOD 03/25/2025 11:28 AM [facility] LAB Hematocrit 29.5(L) 42.0 - 54.0 % LAB HEMETOLOGY METHOD 03/25/2025 11:28 AM [facility] LAB MCV 105.7(H) 79.0 - 98.0 FL LAB HEMETOLOGY METHOD 03/25/2025 11:28 AM [facility] LAB MCH 33.3(H) 27.0 - 32.0 pcg LAB HEMETOLOGY METHOD 03/25/2025 11:28 AM [facility] LAB MCHC 31.5(L) 32.0 - 37.0 g/dL LAB HEMETOLOGY METHOD 03/25/2025 11:28 AM [facility] LAB RDW 12.6 11.0 - 15.0 % LAB HEMETOLOGY METHOD 03/25/2025 11:28 AM [facility] LAB Platelets 243 130 - 400 K/[facility] LAB HEMETOLOGY METHOD 03/25/2025 11:28 AM [facility] LAB MPV 9.6 7.0 - 11.0 FL LAB HEMETOLOGY METHOD 03/25/2025 11:28 AM [facility] LAB NRBC 0.0 <1.0 % LAB HEMETOLOGY METHOD 03/25/2025 11:28 AM [facility] LAB NRBC Absolute 0.00 <0.10 K/[facility] LAB HEMETOLOGY METHOD 03/25/2025 11:28 AM [facility] LAB Neutrophils Relative 70.3 % LAB HEMETOLOGY METHOD 03/25/2025 11:28 AM [facility] LAB Lymphocytes Relative 16.5 % LAB HEMETOLOGY METHOD 03/25/2025 11:28 AM [facility] LAB Monocytes Relative 9.5 % LAB HEMETOLOGY METHOD 03/25/2025 11:28 AM [facility] LAB Eosinophils Relative 2.6 % LAB HEMETOLOGY METHOD 03/25/2025 11:28 AM [facility] LAB Basophils Relative 0.2 % LAB HEMETOLOGY METHOD 03/25/2025 11:28 AM [facility] LAB Immature Granulocytes Relative 0.9 % LAB HEMETOLOGY METHOD 03/25/2025 11:28 AM [facility] LAB Neutrophils Absolute 3.25 1.50 - 7.00 K/mcL LAB HEMETOLOGY METHOD 03/25/2025 11:28 AM [facility] LAB Lymphocytes Absolute 0.76(L) 1.00 - 5.00 K/mcL LAB HEMETOLOGY METHOD 03/25/2025 11:28 AM [facility] LAB Monocytes Absolute 0.44 0.20 - 1.00 K/mcL LAB HEMETOLOGY METHOD 03/25/2025 11:28 AM [facility] LAB Eosinophils Absolute 0.12 0.00 - 0.50 K/mcL LAB HEMETOLOGY METHOD 03/25/2025 11:28 AM [facility] LAB Basophils Absolute 0.01 0.00 - 0.20 K/mcL LAB HEMETOLOGY METHOD 03/25/2025 11:28 AM [facility] LAB Immature Granulocytes Absolute 0.04(H) 0.00 - 0.03 K/mcL LAB HEMETOLOGY METHOD 03/25/2025 11:28 AM [facility] LAB Blood Venous blood specimen / Unknown Venipuncture / Unknown 03/25/2025 6:58 AM EDT 03/25/2025 10:18 AM EDT us Ida BISWAS LAB BLOOD ORDERABLES Final Re sult [facility] ([facility]) [facility] LAB [address] [place] [address], documented in this encounter Visit Diagnoses Diagnosis Encounter for other general examination documented in this encounter Care Teams Concreter Relationship Specialty Start Date End Date Ida Rivera PA [address] [place] [phone] PCP - General Physician Home Based Assistant 03/19/25 documented as of this encounter
--- OUTSIDE RECORDS SUMMARY | 2025-05-26 08:37 | XMS_ITS | Encounter Summary ---
[facility] [address] Address [address] [place] [address] Care Team Providers Care Clay Dry Press Operator Name Role Phone Ida Rivera Primary Care Provider [phone] Encounter Details Date Type Department Care Team ([facility] st Contact Info) Description 03/20/[address] [facility] - Main Lab 299 [facility] [place] [phone] Ida Rivera PA [address] [place] [phone] Encounter for other general examination Social History [...] K/mcL LAB HEMETOLOGY METHOD 03/20/2025 10:50 AM [facility] LAB RBC 3.00(L) 4.50 - 5.50 M/mcL LAB HEMETOLOGY METHOD 03/20/2025 10:50 AM [facility] LAB Hemoglobin 9.8(L) 13.5 - 17.5 g/dL LAB HEMETOLOGY METHOD 03/20/2025 10:50 AM [facility] LAB Hematocrit 31.0(L) 42.0 - 54.0 % LAB HEMETOLOGY METHOD 03/20/2025 10:50 AM [facility] LAB MCV 103.0(H) 79.0 - 98.0 FL LAB HEMETOLOGY METHOD 03/20/2025 10:50 AM [facility] LAB MCH 32.6(H) 27.0 - 32.0 pcg LAB HEMETOLOGY METHOD 03/20/2025 10:50 AM [facility] LAB MCHC 31.6(L) 32.0 - 37.0 g/dL LAB HEMETOLOGY METHOD 03/20/2025 10:50 AM [facility] LAB RDW 12.8 11.0 - 15.0 % LAB HEMETOLOGY METHOD 03/20/2025 10:50 AM [facility] LAB Platelets 164 130 - 400 K/mcL LAB HEMETOLOGY METHOD 03/20/2025 10:50 AM [facility] LAB MPV 10.3 7.0 - 11.0 FL LAB HEMETOLOGY METHOD 03/20/2025 10:50 AM [facility] LAB NRBC 0.0 <1.0 % LAB HEMETOLOGY METHOD 03/20/2025 10:50 AM [facility] LAB NRBC Absolute 0.00 <0.10 K/mcL LAB HEMETOLOGY METHOD 03/20/2025 10:50 AM [facility] LAB Neutrophils Relative 75.9 % LAB HEMETOLOGY METHOD 03/20/2025 10:50 AM [facility] LAB Lymphocytes Relative 12.5 % LAB HEMETOLOGY METHOD 03/20/2025 10:50 AM [facility] LAB Monocytes Relative 8.3 % LAB HEMETOLOGY METHOD 03/20/2025 10:50 AM [facility] LAB Eosinophils Relative 2.4 % LAB HEMETOLOGY METHOD 03/20/2025 10:50 AM [facility] LAB Basophils Relative 0.2 % LAB HEMETOLOGY METHOD 03/20/2025 10:50 AM [facility] LAB Immature Granulocytes Relative 0.7 % LAB HEMETOLOGY METHOD 03/20/2025 10:50 AM [facility] LAB Neutrophils Absolute 4.51 1.50 - 7.00 K/mcL LAB HEMETOLOGY METHOD 03/20/2025 10:50 AM [facility] LAB Lymphocytes Absolute 0.74(L) 1.00 - 5.00 K/mcL LAB HEMETOLOGY METHOD 03/20/2025 10:50 AM [facility] LAB Monocytes Absolute 0.49 0.20 - 1.00 K/mcL LAB HEMETOLOGY METHOD 03/20/2025 10:50 AM [facility] LAB Eosinophils Absolute 0.14 0.00 - 0.50 K/mcL LAB HEMETOLOGY METHOD 03/20/2025 10:50 AM [facility] LAB Basophils Absolute 0.01 0.00 - 0.20 K/mcL LAB HEMETOLOGY METHOD 03/20/2025 10:50 AM [facility] LAB Immature Granulocytes Absolute 0.04(H) 0.00 - 0.03 K/mcL LAB HEMETOLOGY METHOD 03/20/2025 10:50 AM [facility] Blood Venous blood specimen / Unknown Venipuncture / Unknown 03/20/2025 6:57 AM EDT 03/20/2025 9:58 AM EDT us Ida BISWAS LAB BLOOD ORDERABLES Final Re sult [facility] ([facility] [address] [place] [address], documented in this encounter Visit Diagnoses Diagnosis Encounter for other general examination documented in this encounter Care Teams Clay Dry Press Operator Relationship Specialty Start Date End Date Ida Rivera PA [address] [place] [phone] PCP - General Physician Cullet Trucker 03/19/25 documented as of this encounter
--- OUTSIDE RECORDS SUMMARY | 2025-05-26 08:37 | XMS_ITS | Encounter Summary ---
Author Organization [facility] Address [address] [place] [address] Care Team Providers Care Audit Director Name Role Phone Juany Pereira Primary Care Provider Unavailkarla e Encounter Details Date Type Department Care Team Description 09/05/2023 Orders Only Medical Records [address] [place] [address] Ryan Almendarez MD [address] [place] [address] Social History Tobacco Use Types Packs/Day Years [...] on file documented as of this encounter Progress Notes * Joan Almendarez MD - 10/01/2023 6:36 PM EST Dear Zi, According to the biopsies we took during your endoscopy, you have Helicobacter pylori detected in your stomach. This type of bacteria which can results with chronic infection of the stomach lining, and thereby resulting with gastritis, stomach ulcers, and can lead to stomach malignancy. Therefore, we would like to treat this with a course of antibiotics. I will be sending antibiotics as well as an acid reducing agent during the course of the therapy. Once the therapy is completed, you will contact our office for a follow-up. I would like to personally thank you for allowing us to take care of you. Please don't hesitate to call us for any questions or concerns. Regards, Emre Almendarez MD Board Certified Gastroenterology and Internal Medicine Transplant Hepatology [facility] documented in this encounter Plan of Treatment Not on file documented as of this encounter Procedures Procedure Name Priority Date/Time Associated Diagnosis Comments OUTSIDE COLONOSCOPY Routine 09/01/2023 OUTSIDE PATHOLOGY Routine 09/01/2023 documented in this encounter Results * OUTSIDE COLONOSCOPY (09/01/2023) Ryan Almendarez MD RADIOLOGY * OUTSIDE PATHOLOGY (09/01/2023) Ryan Almendarez MD OUTSIDE LAB documented in this encounter Visit Diagnoses Not on filedocumented in this encounter Care Teams Audit Director Relationship Specialty Start Date End Date Juany Pereira PCP - General Family Practice 08/03/20 documented as of this encounter
--- OUTSIDE RECORDS SUMMARY | 2025-05-26 08:37 | XMS_ITS | Encounter Summary ---
Author Organization [place] [address] Care Team Providers Care Stationary Equipment Mechanic Name Role Phone Ida Rivera Primary Care Provider [phone] Encounter Details Date Type Department Care Team ([facility] st Contact Info) Description 03/19/2025 Lab Requisition [facility] - Main Lab 299 [facility] [place] [phone] Ida Rivera PA [address] [place] [phone] Encounter for other general examination Social History [...] Lavender tube (03/19/2025 5:26 AM EDT) Pathologist [facility] Extra Tube Hold for add-ons. 03/19/2025 9:01 AM EDT [facility] Comment:Auto resulted. Blood Venous blood specimen / Unknown Venipuncture / Unknown 03/19/2025 5:26 AM EDT 03/19/2025 7:31 AM EDT Ida BISWAS LAB BLOOD ORDERABLES Final Re sult [facility] [address] [place] [address], [place] [phone] * Magnesium (03/19/2025 5:26 AM EDT) Pathologist [facility] Magnesium 2.1 1.9 - 2.6 mg/dL LAB CHEMISTRY METHOD 03/19/2025 10:02 AM EDT [facility] Blood Venous blood specimen / Unknown Venipuncture / Unknown 03/19/2025 5:26 AM EDT 03/19/2025 7:31 AM EDT Ida BISWAS LAB BLOOD ORDERABLES Final Re sult [facility] [address] [place] [address], [place] [phone] * (ABNORMAL) Comprehensive metabolic panel (03/19/2025 5:26 AM EDT) [facility] Sodium 136 133 - 145 mmol/L LAB CHEMISTRY METHOD 03/19/2025 10:02 AM EDT [facility] Potassium 4.1 3.5 - 5.5 mmol/L LAB CHEMISTRY METHOD 03/19/2025 10:02 AM EDT [facility] Chloride 102 96 - 110 mmol/L LAB CHEMISTRY METHOD 03/19/2025 10:02 AM [facility] CO2 27 21 - 32 mmol/L LAB CHEMISTRY METHOD 03/19/2025 10:02 AM [facility] Anion Gap 7 3 - 11 LAB CHEMISTRY METHOD 03/19/2025 10:02 AM [facility] Glucose 100 70 - 100 mg/dL LAB CHEMISTRY METHOD 03/19/2025 10:02 AM [facility] BUN 16 5 - 25 mg/dL LAB CHEMISTRY METHOD 03/19/2025 10:02 AM [facility] Creatinine 0.90 0.70 - 1.30 mg/dL LAB CHEMISTRY METHOD 03/19/2025 10:02 AM [facility] eGFR 89 >=60 mL/min/1. 73m2 LAB CHEMISTRY METHOD 03/19/2025 10:02 AM [facility] Comment:Calculation based on the Chronic Kidney Disease Epidemiology Collaboration (CKD-EPI) equation refit without adjustment for race. BUN/Creatinine Ratio 17.8 LAB CHEMISTRY METHOD 03/19/2025 10:02 AM [facility] Calcium 8.5 8.5 - 10.5 mg/dL LAB CHEMISTRY METHOD 03/19/2025 10:02 AM [facility] AST (SGOT) 7(L) 10 - 42 unit/L LAB CHEMISTRY METHOD 03/19/2025 10:02 AM [facility] ALT (SGPT) 7(L) 10 - 60 unit/L LAB CHEMISTRY METHOD 03/19/2025 10:02 AM [facility] Alkaline Phosphatase 64 42 - 121 unit/L LAB CHEMISTRY METHOD 03/19/2025 10:02 AM [facility] Total Protein 5.5(L) 6.0 - 8.0 g/dL LAB CHEMISTRY METHOD 03/19/2025 10:02 AM [facility] Albumin 3.1(L) 3.2 - 5.0 g/dL LAB CHEMISTRY METHOD 03/19/2025 10:02 AM EDT [facility] Total Bilirubin 0.9 0.0 - 1.4 mg/dL LAB CHEMISTRY METHOD 03/19/2025 10:02 AM EDT [facility] Blood Venous blood specimen / Unknown Venipuncture / Unknown 03/19/2025 5:26 AM EDT 03/19/2025 7:31 AM EDT us Ida BISWAS LAB BLOOD ORDERABLES Final Re sult [facility] [address] [place] [address], documented in this encounter Visit Diagnoses Diagnosis Encounter for other general examination documented in this encounter Care Teams Stationary Equipment Mechanic Relationship Specialty Start Date End Date Ida Rivera PA [address] [place] [phone] PCP - General Physician Financial Brokers 03/19/25 documented as of this encounter
--- OUTSIDE RECORDS SUMMARY | 2025-05-26 08:37 | XMS_ITS | Encounter Summary ---
Author Organization [facility] Address [address] [place] [address] Care Team Providers Care Bale Piler Name Role Phone Juany Pereira Primary Care Provider Unavailabl e Encounter Details Date Type Department Care Team Description 09/01/2023 Hospital Medical Records [address] [place] [address] Ryan Almendarez MD [address] [place] [address] Social History Tobacco Use Types Packs/Day Years [...] on filedocumented in this encounter Care Teams Bale Piler Relationship Specialty Start Date End Date Juany Pereira PCP - General Family Practice 08/03/20 documented as of this encounter
--- OUTSIDE RECORDS SUMMARY | 2025-05-26 08:38 | XMS_ITS | Encounter Summary ---
[facility] [place] [address] Care Team Providers Care Chief Of Staff Name Role Phone Ida Rivera Primary Care Provider Encounter Details Date Type Department Care Team ([facility] st Contact Info) Description 03/23/2025 Lab Requisition [facility] - Main Lab [address] [facility] [place] [phone] Ida Rivera PA [address] [place] [phone] Encounter for other general examination [...] K/mcL LAB HEMETOLOGY METHOD 03/23/2025 9:[address] [facility] RBC 2.70(L) 4.50 - 5.50 M/mcL LAB HEMETOLOGY METHOD 03/23/2025 9:[address] [facility] Hemoglobin 8.9(L) 13.5 - 17.5 g/dL LAB HEMETOLOGY METHOD 03/23/2025 9:[address] [facility] Hematocrit 28.6(L) 42.0 - 54.0 % LAB HEMETOLOGY METHOD 03/23/2025 9:[address] [facility] MCV 105.1(H) 79.0 - 98.0 FL LAB HEMETOLOGY METHOD 03/23/2025 9:[address] [facility] MCH 32.7(H) 27.0 - 32.0 pcg LAB HEMETOLOGY METHOD 03/23/2025 9:[address] [facility] MCHC 31.1(L) 32.0 - 37.0 g/dL LAB HEMETOLOGY METHOD 03/23/2025 9:[address] [facility] RDW 12.7 11.0 - 15.0 % LAB HEMETOLOGY METHOD 03/23/2025 9:[address] [facility] Platelets 210 130 - 400 K/[facility] LAB HEMETOLOGY METHOD 03/23/2025 9:[address] [facility] MPV 9.8 7.0 - 11.0 FL LAB HEMETOLOGY METHOD 03/23/2025 9:[address] [facility] NRBC 0.0 <1.0 % LAB HEMETOLOGY METHOD 03/23/2025 9:[address] [facility] NRBC Absolute 0.00 <0.10 K/[facility] LAB HEMETOLOGY METHOD 03/23/2025 9:[address] [facility] Neutrophils Relative 71.4 % LAB HEMETOLOGY METHOD 03/23/2025 9:[address] [facility] Lymphocytes Relative 16.7 % LAB HEMETOLOGY METHOD 03/23/2025 9:[address] [facility] Monocytes Relative 7.8 % LAB HEMETOLOGY METHOD 03/23/2025 9:[address] [facility] Eosinophils Relative 2.7 % LAB HEMETOLOGY METHOD 03/23/2025 9:[address] [facility] Basophils Relative 0.5 % LAB HEMETOLOGY METHOD 03/23/2025 9:[address] [facility] Immature Granulocytes Relative 0.9 % LAB HEMETOLOGY METHOD 03/23/2025 9:[address] [facility] Neutrophils Absolute 3.13 1.50 - 7.00 K/mcL LAB HEMETOLOGY METHOD 03/23/2025 9:[address] [facility] Lymphocytes Absolute 0.73(L) 1.00 - 5.00 K/mcL LAB HEMETOLOGY METHOD 03/23/2025 9:[address] [facility] Monocytes Absolute 0.34 0.20 - 1.00 K/mcL LAB HEMETOLOGY METHOD 03/23/2025 9:[address] [facility] Eosinophils Absolute 0.12 0.00 - 0.50 K/mcL LAB HEMETOLOGY METHOD 03/23/2025 9:[address] [facility] Basophils Absolute 0.02 0.00 - 0.20 K/mcL LAB HEMETOLOGY METHOD 03/23/2025 9:[address] [facility] Immature Granulocytes Absolute 0.04(H) 0.00 - 0.03 K/mcL LAB HEMETOLOGY METHOD 03/23/2025 9:[address] [facility] Blood Venous blood specimen / Unknown Venipuncture / Unknown 03/23/2025 6:05 AM EDT 03/23/2025 8:42 AM EDT us Ida BISWAS LAB BLOOD ORDERABLES Final Re sult [facility] ([facility]) [facility] [address] [place] [address], documented in this encounter Visit Diagnoses Diagnosis Encounter for other general examination documented in this encounter Care Teams Chief Of Staff Relationship Specialty Start Date End Date Ida Rivera PA [address] [place] [phone] PCP - General Physician Septic Tank Service Technician 03/19/25 documented as of this encounter
--- OUTSIDE RECORDS SUMMARY | 2025-05-26 08:38 | XMS_ITS | Encounter Summary ---
[facility] Organization [facility] [place] [address] Care Team Providers Care Manufacturing Tech Name Role Phone Ida Rivera Primary Care Provider [phone] Encounter Details Date Type Department Care Team ([facility] st Contact Info) Description 03/24/[address] [facility] - Main Lab 299 [facility] [place] [phone] Ida Rivera PA [address] [place] [phone] Encounter for other general examination [...] LAB HEMETOLOGY METHOD 03/24/2025 1:10 PM EDT [facility] RBC 2.80(L) 4.50 - 5.50 M/mcL LAB HEMETOLOGY METHOD 03/24/2025 1:10 PM EDT [facility] Hemoglobin 9.2(L) 13.5 - 17.5 g/dL LAB HEMETOLOGY METHOD 03/24/2025 1:10 PM EDT [facility] Hematocrit 30.1(L) 42.0 - 54.0 % LAB HEMETOLOGY METHOD 03/24/2025 1:10 PM EDT [facility] MCV 108.3(H) 79.0 - 98.0 FL LAB HEMETOLOGY METHOD [facility] MCH 33.1(H) 27.0 - 32.0 pcg LAB HEMETOLOGY METHOD 03/24[facility]2025 [facility] MCHC 30.6(L) 32.0 - 37.0 g/dL LAB HEMETOLOGY METHOD 03/24[facility]2025 [facility] RDW 12.8 11.0 - 15.0 % LAB HEMETOLOGY METHOD 03/24/2025 1:10 PM EDT [facility] Platelets 247 130 - 400 K/[facility] LAB HEMETOLOGY METHOD 03/24/2025 1:10 PM EDT [facility] MPV 9.8 7.0 - 11.0 FL LAB HEMETOLOGY METHOD 03/24/2025 1:10 PM EDT [facility] NRBC 0.0 <1.0 % LAB HEMETOLOGY METHOD 03/24/2025 1:10 PM EDT [facility] NRBC Absolute 0.00 <0.10 K/[facility] LAB HEMETOLOGY METHOD 03/24/2025 1:10 PM EDT [facility] Neutrophils Relative 68.8 % LAB HEMETOLOGY METHOD 03/24/2025 1:10 PM EDT [facility] Lymphocytes Relative 17.9 % LAB HEMETOLOGY METHOD 03/24/2025 1:10 PM [facility] Monocytes Relative 8.9 % LAB HEMETOLOGY METHOD [facility] Eosinophils Relative 2.8 % LAB HEMETOLOGY METHOD 03/24/2025 1:10 PM [facility] Basophils Relative 0.6 % LAB HEMETOLOGY METHOD 03/24/2025 1:10 PM [facility] Immature Granulocytes Relative 1.0 % LAB HEMETOLOGY METHOD 03/24/2025 1:10 PM [facility] Neutrophils Absolute 3.42 1.50 - 7.00 K/mcL LAB HEMETOLOGY METHOD 03/24/2025 1:10 PM [facility] Lymphocytes Absolute 0.89(L) 1.00 - 5.00 K/mcL LAB HEMETOLOGY METHOD 03/24/2025 1:10 PM [facility] Monocytes Absolute 0.44 0.20 - 1.00 K/mcL LAB HEMETOLOGY METHOD 03/24/2025 1:10 PM [facility] Eosinophils Absolute 0.14 0.00 - 0.50 K/mcL LAB HEMETOLOGY METHOD 03/24/2025 1:10 PM [facility] Basophils Absolute 0.03 0.00 - 0.20 K/mcL LAB HEMETOLOGY METHOD 03/24/2025 1:10 PM [facility] Immature Granulocytes Absolute 0.05(H) 0.00 - 0.03 K/mcL LAB HEMETOLOGY METHOD 03/24/2025 1:10 PM [facility] Blood Venous blood specimen / Unknown Venipuncture / Unknown 03/24/2025 5:36 AM EDT 03/24/2025 11:15 AM EDT us Ida BISWAS LAB BLOOD ORDERABLES Final Re sult [facility] ([facility]) [facility] [address] [place] [address], documented in this encounter Visit Diagnoses Diagnosis Encounter for other general examination documented in this encounter Care Teams Manufacturing Tech Relationship Specialty Start Date End Date Ida Rivera PA [address] [place] [phone] PCP - General Physician Brass Plater 03/19/25 documented as of this encounter
--- OUTSIDE RECORDS SUMMARY | 2025-05-26 08:38 | XMS_ITS | Encounter Summary ---
[facility] [place] [address] Care Team Providers Care Material Handler Floorperson Name Role Phone Ida Rivera Primary Care Provider [phone] Encounter Details Date Type Department Care Team ([facility] st Contact Info) Description 03/22/2025 Lab Requisition [facility] - Main Lab 299 [facility] [place] [phone] Ida Rivera PA [address] [place] [phone] Encounter for other general examination [...] K/mcL LAB HEMETOLOGY METHOD 03/22/2025 11:00 AM [facility] RBC 2.90(L) 4.50 - 5.50 M/mcL LAB HEMETOLOGY METHOD 03/22/2025 11:00 AM [facility] Hemoglobin 9.5(L) 13.5 - 17.5 g/dL LAB HEMETOLOGY METHOD 03/22/2025 11:00 AM [facility] Hematocrit 30.4(L) 42.0 - 54.0 % LAB HEMETOLOGY METHOD 03/22/2025 11:00 AM [facility] MCV 106.3(H) 79.0 - 98.0 FL LAB HEMETOLOGY METHOD 03/22/2025 11:00 AM [facility] MCH 33.2(H) 27.0 - 32.0 pcg LAB HEMETOLOGY METHOD 03/22/2025 11:00 AM [facility] MCHC 31.3(L) 32.0 - 37.0 g/dL LAB HEMETOLOGY METHOD 03/22/2025 11:00 AM [facility] RDW 12.9 11.0 - 15.0 % LAB HEMETOLOGY METHOD 03/22/2025 11:00 AM [facility] LAB Platelets 206 130 - 400 K/[facility] LAB HEMETOLOGY METHOD 03/22/2025 11:00 AM [facility] LAB MPV 9.9 7.0 - 11.0 FL LAB HEMETOLOGY METHOD 03/22/2025 11:00 AM [facility] NRBC 0.0 <1.0 % LAB HEMETOLOGY METHOD 03/22/2025 11:00 AM [facility] LAB NRBC Absolute 0.00 <0.10 K/[facility] LAB HEMETOLOGY METHOD 03/22/2025 11:00 AM [facility] Neutrophils Relative 69.1 % LAB HEMETOLOGY METHOD 03/22/2025 11:00 AM [facility] Lymphocytes Relative 18.7 % LAB HEMETOLOGY METHOD 03/22/2025 11:00 AM [facility] Monocytes Relative 7.2 % LAB HEMETOLOGY METHOD 03/22/2025 11:00 AM [facility] Eosinophils Relative 3.7 % LAB HEMETOLOGY METHOD 03/22/2025 11:00 AM [facility] Basophils Relative 0.4 % LAB HEMETOLOGY METHOD 03/22/2025 11:00 AM [facility] Immature Granulocytes Relative 0.9 % LAB HEMETOLOGY METHOD 03/22/2025 11:00 AM [facility] Neutrophils Absolute 3.19 1.50 - 7.00 K/mcL LAB HEMETOLOGY METHOD 03/22/2025 11:00 AM [facility] Lymphocytes Absolute 0.86(L) 1.00 - 5.00 K/mcL LAB HEMETOLOGY METHOD 03/22/2025 11:00 AM [facility] Monocytes Absolute 0.33 0.20 - 1.00 K/mcL LAB HEMETOLOGY METHOD 03/22/2025 11:00 AM [facility] Eosinophils Absolute 0.17 0.00 - 0.50 K/mcL LAB HEMETOLOGY METHOD 03/22/2025 11:00 AM [facility] Basophils Absolute 0.02 0.00 - 0.20 K/mcL LAB HEMETOLOGY METHOD 03/22/2025 11:00 AM [facility] Immature Granulocytes Absolute 0.04(H) 0.00 - 0.03 K/mcL LAB HEMETOLOGY METHOD 03/22/2025 11:00 AM [facility] Blood Venous blood specimen / Unknown Venipuncture / Unknown 03/22/2025 5:17 AM EDT 03/22/2025 9:57 AM EDT us Ida BISWAS LAB BLOOD ORDERABLES Final Re sult [facility] ([facility]) [facility] [address] [place] [address], documented in this encounter Visit Diagnoses Diagnosis Encounter for other general examination documented in this encounter Care Teams Material Handler Floorperson Relationship Specialty Start Date End Date Ida Rivera PA [address] [place] [phone] PCP - General Physician Auto Research Engineer 03/19/25 documented as of this encounter
== END 2025-05-26 09:33 | disposition home or self-care (01) ==
LOC: HO.HSMS 08:19
PROVIDERS: PCP Student in an Organized Health Care Education/Training Program; Referring Provider Physician Assistant Medical; Visit Provider Physician Assistant Medical
DX: G20.A1 Parkinson's disease without dyskinesia, without mention of fluctuations (principal)
CPT/HCPCS: 99214; G2211

== ENCOUNTER → 2025-05-26 08:19 | Outpatient (BNVA) | payer OTHER, SELFPAY | PROVIDERS: PCP Student in an Organized Health Care Education/Training Program; Visit Provider Physician Assistant Medical | DX: G20.A1 Parkinson's disease without dyskinesia, without mention of fluctuations (principal) | CPT/HCPCS: 99212 ==